=== PATIENT | female | born 1955 | race African-American/Black ===

== ENCOUNTER 2022-01-21 22:37 | Emergency (ER) | payer MEDICAID, SELFPAY ==
[2022-01-21 22:39] VITALS: RESP 18
[2022-01-21 22:48] VITALS: BP 109/77; PULSE 78; RESP 18; TEMP 36.7; O2SAT 99; BMI 29.2
--- NOTE | 2022-01-21 23:06 | ED.GENADULT ---
HPI - General Adult General Chief complaint: Unspecified Complaint, Adult Stated complaint: pain from rheumatoid arthritis Time Seen by Provider: 01/21/22 22:52 History of Present Illness HPI narrative: Pt is a 66 year old woman with long standing rheumatoid arthritis who presents with worsening of the pain in her hands for the past several days. Pain is severe and localized to the MCP of both hands. No fever, chills, abd pain, nausea, vomiting or rash. Pt is compliant with her medications. Pt states that when this happens, she generally takes a higher dose of prednisone for a time which helps. She is currently on 20 mg of prednisone daily. No other complaints. Pain is limiting her ability ot function and sleep. Related Data Home Medications Medication Instructions Recorded Confirmed acetaminophen 500 mg tablet (Pain 1,000 mg PO TID PRN 01/21/22 01/21/22 Relief (acetaminophen)) cholecalciferol (vitamin D3) 50 2,000 unit PO DAILY 01/21/22 01/21/22 mcg (2,000 unit) tablet diclofenac sodium 1 % topical gel 4 g topical QID 01/21/22 01/21/22 docusate sodium 100 mg capsule 100 mg PO DAILY 01/21/22 01/21/22 folic acid 1 mg tablet 1 mg PO DAILY 01/21/22 01/21/22 leflunomide 20 mg tablet 20 mg PO DAILY 01/21/22 01/21/22 levothyroxine 100 mcg tablet 100 mcg PO DAILY 01/21/22 01/21/22 meclizine 25 mg tablet 25 mg PO QID PRN 01/21/22 01/21/22 methotrexate sodium 2.5 mg tablet 2.5 mg PO QWEEK 01/21/22 01/21/22 omeprazole 20 mg capsule,delayed 20 mg PO DAILY 01/21/22 01/21/22 release prednisone 5 mg tablet 5 mg PO DAILY 01/21/22 01/21/22 Allergies Allergy/AdvReac Type Severity Reaction Status Date / Time No Known Drug Allergies Allergy Verified 01/21/22 23:00 Review of Systems Status of ROS: Reports: 10 or more systems reviewed and unremarkable except as noted in History and below [facility] PFS Medical History Hypothyroidism Immunodeficiency due to drugs Rheumatoid arthritis Vitamin D deficiency Surgical History No significant past surgical history Social History Smoking Status: Never smoker Do you use any of these nicotine containing products: None Second hand tobacco smoke exposure: No How often do you have a drink containing alcohol: never How often do you have six or more drinks on one occasion: Never AUDIT-C Alcohol total score: 0 Non-prescribed substance use: denies use Exam Narrative: Exam Narrative: EXAM GENERAL: Patient appears comfortable and well. Obvious ulnar deviation of both hands and wrists with moderate swelling noted. EYES: No scleral icterus. LYMPH: No supraclavicular or cervical lymphadenopathy. SKIN: Visible skin seen during exam normal or with benign process only. EXT: No dependent lower extremity pedal edema. HEART: Regular rate and rhythm with no murmurs, rubs, or gallops. LUNGS: Clear to auscultation bilaterally with no crackles or wheezes. ABD: Soft, non tender, non distended. PSYCH: Good eye contact, speech is not pressured. Const: Vital Signs, click to edit/add: Vital Signs - 24 hr 01/21/22 22:48 01/21/22 22:39 Temperature 98.0 F Pulse Rate [Right Pulse Oximeter] 78 Respiratory Rate 18 Respiratory Rate [ Generalized] 18 Blood Pressure [Ri ght Upper Arm] 109/77 Pulse Oximetry 99 Oxygen Delivery Me thod Room Air Course Course Hospital Course: Pt seen and examined. Vital Signs Vital signs: Initial Vital Signs Respiratory Rate 18 01/21/22 22:39 Vital Signs Respiratory Rate 18 01/21/22 22:39 Temperature 98.0 F 01/21/22 22:48 Pulse Rate 78 01/21/22 22:48 Respiratory Rate 18 01/21/22 22:48 Blood Pressure 109/77 01/21/22 22:48 Pulse Oximetry 99 01/21/22 22:48 Oxygen Delivery Method 01/21/22 22:48 Medical Decision Making MDM Narrative Medical decision making narrative: Pt seen and examined. Case discussed with pt and son. Pt presents with worsening of what appears to be poorly controlled RA. Will treat with 80 mg of Solumedrol now with increase of oral prednisone to 20 mg BID for 5 days with continuation of the remainder of her medications and outpt follow up. Differential Diagnosis Differential Diagnosis: RA flair, SLE, OA, Fracture, Tendonitis, Discharge Plan Discharge Clinical Impression: Rheumatoid arthritis Patient Disposition: Home, Self-Care Condition: Stable Additional Instructions: Increase Prednisone to 20 mg twice daily for 5 days before returning to previous dosing Continue current medications Follow up with primary physician Activity Level: No Restrictions Discharge Diet: Regular Prescriptions: No Action folic acid 1 mg tablet 1 mg PO DAILY Label Comments: TAKE 1 TABLET BY MOUTH ONCE DAILY acetaminophen [Pain Relief (acetaminophen)] 500 mg tablet 1,000 mg PO TID PRN Label Comments: TAKE 2 TABLETS BY MOUTH EVERY 8 HOURS NEEDED FOR MODERATE PAIN OR SCORE OF 4-6 OF 10 cholecalciferol (vitamin D3) 50 mcg (2,000 unit) tablet 2,000 unit PO DAILY Label Comments: TAKE 1 TABLET BY MOUTH ONCE DAILY diclofenac sodium 1 % gel 4 g TOPICAL QID Label Comments: APPLY 4 GRAMS TOPICALLY 4 TIMES DAILY TO LOWER EXTREMITIES AND 2 GRAMS TOPICALLY 4 TIMES DAILY TO UPPER EXTREMITIES docusate sodium 100 mg capsule 100 mg PO DAILY Label Comments: TAKE 1 CAPSULE BY MOUTH ONCE DAILY leflunomide 20 mg tablet 20 mg PO DAILY levothyroxine 100 mcg tablet 100 mcg PO DAILY Label Comments: TAKE 1 TABLET BY MOUTH ONCE DAILY meclizine 25 mg tablet 25 mg PO QID PRN Label Comments: TAKE 1 TABLET BY MOUTH NEEDED FOR DIZZINESS methotrexate sodium 2.5 mg tablet 2.5 mg PO QWEEK omeprazole 20 mg capsule,delayed release(DR/EC) 20 mg PO DAILY prednisone 5 mg tablet 5 mg PO DAILY Label Comments: TAKE 1 TABLET BY MOUTH ONCE DAILY Stand Alone Forms: [employer] Info Instructions
[2022-01-21] MEDS: METHYLPREDNISOLONE SOD SUCC 40 MG/ML 80 MG IM (23:14)
--- OUTSIDE RECORDS SUMMARY | 2022-01-21 23:19 | XMS_ITS | Encounter Summary ---
:1955 Author Organization [facility] Address [address] [place] [address] Care Team Providers Name Role Phone Cynthia Rockwell APRN, C.N.P. Primary Care Provider [phone] Reason for Visit Reason Comments Med Refill Encounter Details Date Type Department Care Team Description 11/08/2021 Refill Department of Family Medicine, Celsa Mcgrath APRN, Med Refill [facility], in [place], [place] [address] [place] [address] Social History Tobacco Use Types Packs/Day Years Used Date Smoking Tobacco: Never Smokeless Tobacco: Never Alcohol Use Standard Drinks/Week Comments No 0 (1 standard drink = 0.6 oz pure alcoho l) Alcohol Habits Answer Date Recorded How often do you have a drink containing alcohol? Never 09/18/2018 How many drinks containing alcohol do you have on a Patient refused 09/18/2018 typical day when you are drinking? How often do you have six or more drinks on one Never 09/18/2018 occasion? Social Isolation Answer Date Recorded In a typical week, how many times do you More than three marcin es a week 09/18/2018 talk on the phone with family, friends, or neighbors? How often do you get together with friends Three times a wee k 09/26/2018 or relatives? How often do you attend gnosticist or 1 to 4 times per year 09/01 congregation services? Do you belong to any clubs or No 09/18/2018 organizations such as gnosticist groups, unions, fraternal or athletic groups, or school groups? How often do you attend meetings of the Never 09/18/2018 clubs or organizations you belong to? Are you now , , , Not asked , never or living with a partner? Physical Activity Answer Date Recorded On average, how many days per week do you engage in moderate to 1 day 09/18/2018 strenuous exercise (like walking fast, running, jogging, dancing, swimming, biking, or other activities that cause a light or heavy sweat)? On average, how many minutes do you engage in exercise at is 10 min 09/18/2018 level? Stress Answer Date Recorded Do you feel stress - tense, restless, nervous, or anxious, o r Very much 09/26/2018 unable to sleep at night because your mind is troubled all the time - these days? Financial Resource Strain Answer Date Recorded How hard is it for you to pay for the very basics like Not h iker at all 09/18/2018 food, housing, medical care, and heating? Intimate Partner Violence Answer Date Recorded Within the last year, have you been afraid of your partner o r No 09/18/2018 ex-partner? Within the last year, have you been humiliated or emotionall y No 09/18/2018 abused in other ways by your partner or ex-partner? Within the last year, have you been kicked, hit, slapped, or No 09/18/2018 otherwise physically hurt by your partner or ex-partner? Within the last year, have you been raped or forced to have Not asked any kind of sexual activity by your partner or ex-partner? Food Insecurity Answer Date Recorded Within the past 12 months, you worried that your food would Never true 09/18/2018 run out before you got money to buy more. Within the past 12 months, the food you bought just didn't N ever true 09/18/2018 last and you didn't have money to get more. Transportation Needs Answer Date Recorded In the past 12 months, has lack of transportation kept you f rom No 09/18/2018 medical appointments or from getting medications? In the past 12 months, has lack of transportation kept you f rom No 09/18/2018 meetings, work, or getting things needed for daily living? Education Answer Date Recorded What is the highest level of school you have completed or th e 1st grade 09/18/2018 highest degree you have received? Sex Assigned at Date Recorded Not on file documented as of this encounter Miscellaneous Notes Telephone Encounter - Neptali Sebastian P.A.-C. - 11/09/2021 4:13 PM CDT I give one refill but this patient is overdue to be seen by their primary documented in this encounter Plan of Treatment Upcoming Encounters Date Type Specialty Care Team Description 02/01/2022 Comprehensive Visit Family Medicine Cynthia Rockwell A PRN, C.N.P. [address] [place] [phone] (Wo rk) documented as of this encounter Visit Diagnoses Diagnosis Arthritis Rheumatoid (HCC) Korean Language Deficit - Primary General Medical Examination Adult Hypothyroidism Acquired Arthritis Rheumatoid (HCC) High Risk Medication History Of Falling Encounter For COVID-19 Vaccine Immunizat ion Need Vaccine Immunization Influenza Encounter For Other Screening For Malign ant Neoplasm Of Breast documented in this encounter Care Teams Doughnut Machine Operator Relationship Specialty Start Date End Date Cynthia Rockwell APRN, C.N.P. PCP - General 08/16/16 [address] [place] [phone] documented as of this encounter
--- OUTSIDE RECORDS SUMMARY | 2022-01-21 23:19 | XMS_ITS | Encounter Summary ---
:1955 Author Organization [facility] Address [address] [place] [address] Care Team Providers Name Role Phone Cynthia Rockwell APRN, C.N.P. Primary Care Provider [phone] Reason for Visit Reason Comments Med Refill Encounter Details Date Type Department Care Team Description 05/17/2021 Refill Department of Family Medicine, hCristi Rockwell APRN, Med Refill [facility], in [place], [place] [address] [place] [address] [place] [address] [phone] Social History Tobacco Use Types Packs/Day Years [...] or relatives? How often do you attend yarsanism or 1 to 4 times per year 09/01 sabianism services? Do you belong to any clubs or No 09/18/2018 organizations such as yarsanism groups, unions, fraternal or athletic groups, or [...] minutes do you engage in exercise at th is 10 min 09/18/2018 level? Stress Answer [...] this encounter Miscellaneous Notes Telephone Encounter - Reny Andrews - 05/17/2021 9:34 AM CDT Nurse review: Unable to forward request to provider; Discrepancy; Verification Required. patient request 3 month supply Primary Provider: Cynthia Rockwell APRN, C.N.P. Requested Prescriptions Pending Prescriptions Disp Refills ??? meclizine (ANTIVERT) 25 mg tablet 30 tablet 1 Sig: Take 1 tablet (25 mg total) by mouth as needed for dizziness. Telephone Encounter - Yennifer Astudillo - 05/17/2021 9:29 AM CDT Provider: Cynthia Rockwell APRN, C.N.P. Patient called for Refills. Additional info only if applies: Patient needs a 3 month supply because [place], she will need it by tomorrow Requested Prescriptions Pending Prescriptions Disp Refills ??? meclizine (ANTIVERT) 25 mg tablet 30 tablet 1 Pharmacy: [facility] [address] [place] [address] documented in this encounter Plan of Treatment Upcoming Encounters Date Type Specialty Care Team Description 02/01/2022 Comprehensive Visit Family Medicine Cynthia Rockwell A PRN, C.N.P. [address] [place], [place] [phone] (Wo rk) documented as of this encounter Visit Diagnoses Diagnosis Dizziness Chinese Language Deficit - Primary General Medical Examination Adult Hypothyroidism Acquired Arthritis Rheumatoid (HCC) High Risk Medication History Of Falling Encounter For COVID-19 Vaccine Immunizat ion Need Vaccine Immunization Influenza Encounter For Other Screening For Malign ant Neoplasm Of Breast documented in this encounter Care Teams Dye Box Operator Relationship Specialty Start Date End Date Cynthia Rockwell, SOHAN, C.N.P. PCP - General 08/16/[address] [phone] documented as of this encounter
--- OUTSIDE RECORDS SUMMARY | 2022-01-21 23:19 | XMS_ITS | Encounter Summary ---
:1955 Author Organization [facility] Address [address] [place] [address] Care Team Providers Name Role Phone Cynthia Rockwell APRN, C.N.P. Primary Care Provider [phone] Reason for Visit Reason Comments Med Refill Encounter Details Date Type Department Care Team Description 07/09/2021 Refill Division of Rheumatology in [place] Arana APRN, Med Refill [place], [place] C[place]. [address] [facility] [address] [place] [address] [place] [address] [phone] (Wo rk) Social History Tobacco Use Types Packs/Day Years [...] or relatives? How often do you attend pentecostalism or 1 to 4 times per year 09/01 mandaen services? Do you belong to any clubs or No 09/18/2018 organizations such as pentecostalism groups, unions, fraternal or athletic groups, or [...] this encounter Miscellaneous Notes Telephone Encounter - Jurgen Rodríguez M.S.N., [place], AustenS.R.N. - 07/12/2021 8:11 AM CDT Prescription renewal request for omeprazole received from pharmacy. HISTORY OF PRESENT ILLNESS Last Rheum visit: 03/22/21 with Perry Arana APRN, CA[place] Future office visit: ordered, not yet scheduled Last monitoring labs/eye exam: Not required. Prescription request matches current plan of care. Prescription request matches a current prescription in the Medication List. Exclusion criteria: None ASSESSMENT/PLAN Prescription request renewed per nursing protocol. documented in this encounter Plan of Treatment Upcoming Encounters Date Type Specialty Care Team Description 02/01/2022 Comprehensive Visit Family Medicine Cynthia Rockwell, Kuldip EUBANKS, C.N.P. [address], [place] [phone] (Wo rk) documented as of this encounter Visit Diagnoses Not on filedocumented in this encounter Care Teams Grapple Yarder Operator Relationship Specialty Start Date End Date Cynthia Rockwell APRN, C.N.P. PCP - General 08/16/16 [address], [place] [phone] documented as of this encounter
--- OUTSIDE RECORDS SUMMARY | 2022-01-21 23:19 | XMS_ITS | Encounter Summary ---
:1955 Author Organization [facility] Address [address] [place] [address] Care Team Providers Name Role Phone Cynthia Rockwell APRN, C.N.P. Primary Care Provider [phone] Encounter Details Date Type Department Care Team Description 05/17/2021 Clinical Communication Department of [facility] Celsa Mcgrath, Medicine, [place] SOHAN, C.N.P. [facility], in [address] [address] Social History Tobacco Use Types Packs/Day Years [...] or relatives? How often do you attend jewish or 1 to 4 times per year 09/01 jain services? Do you belong to any clubs or No 09/18/2018 organizations such as jewish groups, unions, fraternal or athletic groups, or [...] this encounter Miscellaneous Notes Telephone Encounter - Sravani Godoy L.P.N. - 05/17/2021 9:58 AM CDT SUBJECTIVE CHIEF COMPLAINT / REASON FOR CALL No chief complaint on file. Information Discussed Followed up with pharmacy and patient picked up a month supply of both medications. Insurance will only cover one month at a time. They would have to call insurance to get a 3 month supply approved. Pharmacy has told them this. There is nothing we can do for them they need to call and follow-up with their insurance. Telephone Encounter - Yennifer Astudillo - 05/17/2021 9:36 AM CDT Reason for Communication: Patient went to the pharmacy today and only received 5 of the 7 prescriptions that were sent over on 05/15, the pharmacy did not receive the methotrexate or the leflunomide. Current Can Nursing/Provider leave a detailed message?: yes Did the patient refuse triage through Nurse line? (for symptom based concerns): na Action Needed: please resend the two prescriptions Name of Medication (if relevant): methotrexate and leflunomide. Please send all scheduling replies to scheduling pool. documented in this encounter Plan of Treatment Upcoming Encounters Date Type Specialty Care Team Description 02/01/2022 Comprehensive Visit Family Medicine Cynthia Rockwell A PRN, C.N.P. [address], [place] [phone] (Wo rk) documented as of this encounter Visit Diagnoses Not on filedocumented in this encounter Care Teams Senior Internet Sales Consultant Relationship Specialty Start Date End Date Cynthia Rockwell APRN, C.N.P. PCP - General 08/16/16 [address], [place] [address] documented as of this encounter
--- OUTSIDE RECORDS SUMMARY | 2022-01-21 23:19 | XMS_ITS | Encounter Summary ---
:1955 Author Organization [facility] Address [address] [place] [address] Care Team Providers Name Role Phone Cynthia Rockwell APRN, C.N.P. Primary Care Provider [phone] Reason for Visit Reason Comments Results Encounter Details Date Type Department Care Team Description 05/16/2021 Clinical Communication Department of [facility] Christi Rockwell, Results Medicine, [place] SOHAN, C.N.P. [facility], in [facility] [address] [place] [address] [place], [place] [phone] (Work) [phone] Social History Tobacco Use Types Packs/Day Years [...] or relatives? How often do you attend rastafari or 1 to 4 times per year 09/01 yarsani services? Do you belong to any clubs or No 09/18/2018 organizations such as rastafari groups, unions, fraternal or athletic groups, or [...] this encounter Miscellaneous Notes Telephone Encounter - Alicia Tilley CCMA - 05/16/2021 9:42 AM CDT Information provided as per Cynthia. The information is understood and agreed to. Telephone Encounter - Isa Jacob L.P.N. - 05/16/2021 9:20 AM CDT Left message for patient to return call to clinic. Does the patient need to speak to nursing? yes Action needed: Relay TSH lab results and recommendations per Celsa Mcgrath. Telephone Encounter - Isa Jacob L.P.N. - 05/16/2021 9:19 AM CDT ----- Message from Celsa Mcgrath APRN, C.N.PShelton sent at 05/15/2021 11:08 PM CDT ----- Please let the patient know her TSH is high. Levothyroxine will be increased to 100 mcg daily. Please follow up with a TSH when she returns to the [place] Thank you! documented in this encounter Plan of Treatment Upcoming Encounters Date Type Specialty Care Team Description 02/01/2022 Comprehensive Visit Family Medicine Cynthia Rockwell A PRN, C.N.P. [address] [place] [phone] (Wo rk) documented as of this encounter Visit Diagnoses Not on filedocumented in this encounter Care Teams Weight Control Lecturer Relationship Specialty Start Date End Date Cynthia Rockwell APRN, C.N.P. PCP - General 08/16/16 [address] [facility] [place] [address] documented as of this encounter
--- OUTSIDE RECORDS SUMMARY | 2022-01-21 23:19 | XMS_ITS | Encounter Summary ---
:1955 Author Organization [facility] Address [address] [place] [address] Care Team Providers Name Role Phone Cynthia Rockwell APRN, C.N.P. Primary Care Provider [phone] Reason for Referral Specialty Diagnoses / Procedures Referred By Contact Refer red To Contact Cynthia Rockwell APR N, C.N.P. [facility] Region [address] [place] [address] Referral ID Status Reason Start Date Expiration Date Visits Requ ested Visits Authorized Encounter Details Date Type Department Care Team Description 01/03/2022 Orders Only [facility] Rockwell, Kuldip EUBANKS, C.N.P. [address] [place], [place] [phone] (Wo rk) Social History Tobacco Use Types [...] or relatives? How often do you attend rastafarian or 1 to 4 times per year 09/01 christian services? Do you belong to any clubs or No 09/18/2018 organizations such as rastafarian groups, unions, fraternal or athletic groups, or [...] on file documented as of this encounter Plan of Treatment Upcoming Encounters Date Type Specialty Care Team Description 02/01/2022 Comprehensive Visit Family Medicine Cynthia Rockwell A PRN, C.N.P. [address] [place] [phone] (Wo rk) Scheduled Referrals Name Type Priority Associated Order Schedule Diagnoses Covid immunization Outpatient Referral Routine Ex pected: office visit 01/03/2022 Immuno/Booster (Approximate) , Expires: 01/03/2023 documented as of this encounter Visit Diagnoses Not on filedocumented in this encounter Care Teams Recoil Spring Winder Relationship Specialty Start Date End Date Cynthia Rockwell TELEMARKETER SUPERVISOR, C.N.P. PCP - General 08/16/[address] [phone] documented as of this encounter
--- OUTSIDE RECORDS SUMMARY | 2022-01-21 23:19 | XMS_ITS | Encounter Summary ---
:1955 Author Organization [facility] Address [address] [place] [address] Care Team Providers Name Role Phone Cynthia Rockwell APRN, C.N.P. Primary Care Provider [phone] Encounter Details Date Type Department Care Team Description 05/15/2021 Orders Only Department of Family Celsa Mcgrath, Hypoth yroidism [facility] Medicine, [place] SOHAN, C.N.P. [facility], in [place], [place] [address] [place] [address] Social History Tobacco Use Types Packs/Day [...] or relatives? How often do you attend orthodoxy or 1 to 4 times per year 09/01 episcopal services? Do you belong to any clubs or No 09/18/2018 organizations such as orthodoxy groups, unions, fraternal or athletic groups, or [...] Cynthia Rockwell A PRN, C.N.P. [address] [place], [place] [phone] (Wo rk) Scheduled Orders Name Type Priority Associated Diagnoses Order S chedule S-TSH Lab Routine Hypothyroidism Acquired Expe cted: 08/15/2021 (Thyroid-Stimulating (Approx imate), Expires: Hormone - Sensitive) 023 documented as of this encounter Visit Diagnoses Diagnosis Hypothyroidism Acquired Yoruba Language Deficit - Primary General Medical Examination Adult Hypothyroidism Acquired Arthritis Rheumatoid (HCC) High Risk Medication History Of Falling Encounter For COVID-19 Vaccine Immunizat ion Need Vaccine Immunization Influenza Encounter For Other Screening For Malign ant Neoplasm Of Breast documented in this encounter Care Teams Computer Assistant Relationship Specialty Start Date End Date Cynthia Rockwell APRN, C.N.P. PCP - General 08/16/[address] [place] [address] documented as of this encounter
--- OUTSIDE RECORDS SUMMARY | 2022-01-21 23:19 | XMS_ITS | Clinical Summary ---
:1955 Author Organization [employer] [facility] [facility] [place] [address] Care Team Providers Name Role Phone Cynthia Rockwell CORK MOLDER Primary Care Provider Allergies Active Allergy Reactions Severity Noted Date Comments Unlisted Allergen (Include Detail Runny Nose 017 Seasonal allergies In Comments) Medications Medication Sig Dispensed Refills Start Date End Date Status methotrexate Take 2.5 mg by 0 Ac tive (RHEUMATREX) 2.5 mg mouth once weekly. tablet Take 6 tablets once a week. leflunomide (ARAVA) 20 Take 20 mg by 0 Active mg tablet mouth once daily. acetaminophen (TYLENOL Take 500 mg by 0 Active EXTRA STRENGTH) 500 mg mouth every 6 tabletIndications: pain hours if needed. Max acetaminophen dose: 4000mg in 24 hrs. Indications: PAIN folic acid 1 mg tablet Take 1 mg by mouth 0 Active once daily. hydroxychloroquine Take 400 mg by 0 Active (PLAQUENIL) 200 mg mouth once daily. tablet docusate (STOOL Take 1 capsule by 30 capsule 0 06/27/2014 Active SOFTENER) 100 mg mouth 2 times capsuleIndications: daily. Compression fracture MAPAP 325 mg tablet 0 08/23/2015 Active levothyroxine Take 75 mcg by 0 A ctive (SYNTHROID) 75 mcg mouth once daily. tablet DULoxetine (CYMBALTA) Take 60 mg by 0 Active 60 mg Delayed-release mouth once daily. capsule predniSONE (DELTASONE) Take 1 tablet by 10 tablet 0 05/12/2017 Active 5 mg tabletIndications: mouth once daily Low back pain, with a meal. unspecified back pain laterality, unspecified chronicity, with sciatica presence unspecified, Hx of rheumatoid arthritis ondansetron (ZOFRAN Place 1 tablet on 10 tablet 0 11/05/2017 Active ODT) 4 mg the tongue every 8 disintegrating hours if needed tabletIndications: for Vomiting, Nausea/Vomiting. intractability of vomiting not specified, presence of nausea not specified, unspecified vomiting type rx ondansetron (ZOFRAN Take 1 tablet by 4 tablet 0 11/05/2017 Active ODT) 4 mg orally mouth every 8 disintegrating tablet hours if needed. (ED DC MED)Indications: Vomiting, intractability of vomiting not specified, presence of nausea not specified, unspecified vomiting type rx albuterol HFA Inhale 2 Puffs by 1 canister 0 07/27/2018 Active (PROVENTIL; VENTOLIN) mouth 4 times (90 mcg each actuation) daily. inhaler (ED DC MED)Indications: Viral URI with cough meclizine (ANTIVERT) 25 Take 1 tablet by 30 tablet 0 9 Active mg tabletIndications: mouth 3 times Dizziness, Nausea daily if needed for Vertigo, Motion Sickness or Nausea/Vomiting. codeine-guaiFENesin Take 10 mL by 40 mL 0 09/22/2020 Active (ROBITUSSIN AC) 10-100 mouth every 6 mg/5 mL hours if needed liquidIndications: for Cough. Max Cough dose 60 mL per 24 hrs. NebulizerIndications: Nebulizer, 1 Each 0 11/28/2020 Active Wheezing disposable neb kit x 4, reuseable neb kit x 1, mask x 1, filters x 1. Frequency of use: daily; Medication: albuterol Length of need: 99 months albuterol (PROVENTIL) Inhale 3 mL (2.5 90 mL 0 11/28/2020 Active 0.083 % neb mg) via a solutionIndications: nebulizer every 4 Wheezing hours if needed. ondansetron (ZOFRAN Place 1 Tablet (4 10 Tablet 0 12/13/2021 Active ODT) 4 mg mg) on the tongue disintegrating every 8 hours if tabletIndications: needed for Nausea and vomiting, Nausea/Vomiting. unspecified vomiting type Active Problems No known active problems Encounters Date Type Specialty Care Team Description 12/13/2021 Emergency Alexis Guzman MD Na usea and vomiting, unspecified vomiting type (Primary Dx); Left lateral ab dominal pain 12/13/2021 Travel from Last 3 Months Social History Tobacco Use Types Packs/Day Years Used Date Never Smoker Smokeless Tobacco: Never Used Tobacco Cessation: Counseling Given: Yes Alcohol Use Standard Drinks/Week Comments No 0 (1 standard drink = 0.6 oz pure alcoho l) Sex Assigned at Date Recorded Not on file Obstetrics History Last Filed Vital Signs Vital Sign Reading Time Taken Comments Blood Pressure 143/73 12/13/2021 9:45 AM CDT Pulse 73 12/13/2021 9:45 AM CDT Temperature 36.7 ??C (98 ??F) 12/13/2021 7:43 AM CDT Respiratory Rate 18 12/13/2021 7:43 AM CDT Oxygen Saturation 95% 12/13/2021 9:45 AM CDT Inhaled Oxygen Concentration - - Weight 76.7 kg (169 lb) 12/13/2021 7:43 AM CDT Height 152.4 cm (5') 12/13/2021 7:43 AM CDT Body Mass Index 33.01 12/13/2021 7:43 AM CDT Plan of Treatment Health Maintenance Due Date Last Done Comments Tdap 1968 Depression screening for age 12+ 1969 HIV for age 15-65 1972 BMI (ht and wt on same day) for age 18+ 1975 Hepatitis C screening for age 18-79 1975 Tetanus booster 1977 Pap test for age 21-65 1978 Colonoscopy through age 75 2002 Lipids for age 45-75 2002 Mammogram for age 45-75 2002 Zoster (shingles) series for age 50+ (1 of 2007 2) COVID-19 vaccine series (3 - Booster for 07/07/2021 022, 08/27/2020 Pfizer series) Influenza for age 50-64 11/02/2021 Procedures Procedure Name Priority Date/Time Associated Diagnosis Comme nts XR CHEST 1 VIEW STAT 12/13/2021 8:56 AM Result s for this PORTABLE CDT procedure are i n the results section. CT ABDOMEN PELVIS W STAT 12/13/2021 8:49 AM Re sults for this CDT procedure are i n the results section. HEPATIC FUNCTION STAT 12/13/2021 8:26 AM Resul ts for this PANEL CDT procedure are i n the results section. LIPASE STAT 12/13/2021 8:26 AM Results f or this CDT procedure are i n the results section. BASIC METABOLIC STAT 12/13/2021 8:26 AM Result s for this PANEL CDT procedure are i n the results section. CBC W PLT NO DIFF STAT 12/13/2021 8:26 AM Resu lts for this CDT procedure are i n the results section. from Last 3 Months Results XR CHEST 1 VIEW PORTABLE (12/13/2021 8:56 AM CDT) Anatomical Region Laterality Modality HEART, THORAX, CHEST Digital Radiography Specimen (Source) Anatomical Collection Method Collection Time Re ceived Time Location / / Volume Laterality 12/13/2021 9:01 AM CDT Impressions 12/13/2021 9:01 AM CDT No acute cardiopulmonary abnormality or significant change from the previous Dictated by Brandon Burt MD @ 12/13/2021 9:01 :05 AM (Electronically Signed) Narrative 12/13/2021 9:01 AM CDT For Patients: ??As a result of the Cures Act, medical imaging exams and procedure report s are released immediately into your [facility] medical record. ??You may view this report before your referring provider. ??If you have questions, please contact your health care provider. INDICATION: Vomiting. TECHNIQUE: Chest 1 view. COMPARISON: 11/28/2020 FINDINGS: Cardiovascular and mediastinum: Heart si ze and vasculature are normal in caliber and appearance. Mediastinum is within normal limits. Lungs and pleural spaces: Lungs are percy r. No sign of infiltrate or mass. No sign of pleural effusion. No pneumothorax. Bones and soft tissues: Chronic bilatera l shoulder arthropathy. No significant findings. Procedure Note Shayne Burt MD - 12/13/2021F ormatting of this note might be different from the original. For Patients: As a result of the Cures Act, medical imaging exams and procedure reports are released immediately into your electronic medical record. You may view this report before your referring provider. If you have questions, please contact [facility] health care provider. INDICATION: Vomiting. TECHNIQUE: Chest 1 view. COMPARISON: 11/28/2020 FINDINGS: Cardiovascular and mediastinum: Heart si ze and vasculature are normal in caliber and appearance. Mediastinum is within normal limits. Lungs and pleural spaces: Lungs are percy r. No sign of infiltrate or mass. No sign of pleural effusion. No pneumothorax. Bones and soft tissues: Chronic bilatera l shoulder arthropathy. No significant findings. IMPRESSION: No acute cardiopulmonary abnormality or significant change from the previous Dictated by Brandon Burt MD @ 12/13/2021 9:01 :05 AM (Electronically Signed) Alexis Guzman MD GENERAL IMAGING CT ABDOMEN PELVIS W (12/13/2021 8:49 AM CDT) Anatomical Region Laterality Modality Abdomen, Pelvis, AORTA, LIVER, SPLEEN Co mputed Tomography Specimen (Source) Anatomical Collection Method Collection Time Re ceived Time Location / / Volume Laterality 12/13/2021 9:14 AM CDT Impressions 12/13/2021 9:14 AM CDT 1. Unremarkable CT of the abdomen and pelvis. No interval change from the previous study or findings which would explain the patient`s left lower quadrant symptoms. 2. Minor bladder wall thickening similar to the previous. 3. Stable old L1 compression fracture. 4. Spleen granulomas. Please note that all CT scans at this [facility] use dose modulation, iterative reconstruction, and/or weight-based dosing when appropriate to reduce radiation dose to as low as reasonably achievable. Dictated by Brandon Burt MD @ 12/13/2021 9:14 :38 AM (Electronically Signed) Narrative 12/13/2021 9:14 AM CDT For Patients: ??As a result of the Cures Act, medical imaging exams and procedure report s are released immediately into your [facility] medical record. ??You may view this report before your referring provider. ??If you have questions, please contact your health care provider. INDICATION: Left lower quadrant abdominal pain. TECHNIQUE: CT abdomen and pelvis acquired with IV c ontrast. COMPARISON: CT abdomen pelvis 10/25/2015 FINDINGS: Lower chest: Lung bases are clear and he art size normal. Fat present in a left posterior diaphragmatic hernia. Liver: Normal size no lesions. Spleen: Normal size. Calcified granuloma . Pancreas: No pancreatic mass or pancreat itis. Gallbladder and bile ducts: Unremarkable . Kidneys: Normal. No stones or hydronephr osis. Adrenal glands: Normal. GI tract: Colon and small bowel are norm al. No bowel wall thickening, adjacent inflammation or obstructive pattern. The appendix is not specifically identified. Vascular structures: No aneurysm or abno rmality of the portal venous system. Lymph nodes: No retroperitoneal, mesente nivia or pelvic lymphadenopathy. Miscellaneous: Unremarkable. No free air or significant free fluid. Fat present is small right inguinal hernia. No left inguinal or abdominal hernia. Pelvic Organs: Mild bladder wall thicken ing similar to the previous without evidence for mass or other bladder abnormality. Uterus and low pelvis normal. Neither ovary is identified. No pelvic mass. Bones: Stable old compression fracture o f L1. No acute abnormality. Procedure Note Shayne Burt MD - 12/13/2021F ormatting of this note might be different from the original. For Patients: As a result of the nt[place] Cures Act, medical imaging exams and procedure reports are released immediately into your electronic medical record. You may view this report before your referring provider. If you have questions, please contact [facility] care provider. INDICATION: Left lower quadrant abdominal pain. TECHNIQUE: CT abdomen and pelvis acquired with IV c ontrast. COMPARISON: CT abdomen pelvis 10/25/2015 FINDINGS: Lower chest: Lung bases are clear and he art size normal. Fat present in a left posterior diaphragmatic hernia. Liver: Normal size no lesions. Spleen: Normal size. Calcified granuloma . Pancreas: No pancreatic mass or pancreat itis. Gallbladder and bile ducts: Unremarkable . Kidneys: Normal. No stones or hydronephr osis. Adrenal glands: Normal. GI tract: Colon and small bowel are norm al. No bowel wall thickening, adjacent inflammation or obstructive pattern. The appendix is not specifically identified. Vascular structures: No aneurysm or abno rmality of the portal venous system. Lymph nodes: No retroperitoneal, mesente nivia or pelvic lymphadenopathy. Miscellaneous: Unremarkable. No free air or significant free fluid. Fat present is small right inguinal hernia. No left inguinal or abdominal hernia. Pelvic Organs: Mild bladder wall thicken ing similar to the previous without evidence for mass or other bladder abnormality. Uterus and low pelvis normal. Neither ovary is identified. No pelvic mass. Bones: Stable old compression fracture o f L1. No acute abnormality. IMPRESSION: 1. Unremarkable CT of the abdomen and pe lvis. No interval change from the previous study or findings which would explain the patient`s left lower quadrant symptoms. 2. Minor bladder wall thickening similar to the previous. 3. Stable old L1 compression fracture. 4. Spleen granulomas. Please note that all CT scans at this [facility] use dose modulation, iterative reconstruction, and/or weight-based dosing when appropriate to reduce radiation dose to as low as reasonably achievable. Dictated by Brandon Burt MD @ 12/13/2021 9:14 :38 AM (Electronically Signed) Alexis Guzman MD CT (ABNORMAL) CBC W PLT NO DIFF (12/13/2021 8:26 AM CDT) [facility] gist Method Time Signature WHITE BLOOD 2.9 (L) 4.5 - 11.0 12/13/2021 [place] COUNT thou/cu mm 8:34 AM [facility] RED BLOOD COUNT 4.09 4.00 - 12/13/2021 [place] 5.20 8:34 AM [facility] [place] mil/cu mm LABORATORY HEMOGLOBIN 11.5 (L) 12.0 - 12/13/2021 [place] 16.0 g/dL 8:34 AM [facility] HEMATOCRIT 36.2 33.0 - 12/13/2021 [place] 51.0 % 8:34 AM [facility] MCV 89 80 - 100 12/13/2021 [place] fL 8:34 AM [facility] MCH 28.1 26.0 - 12/13/2021 [place] 34.0 pg 8:34 AM [facility] MCHC 31.8 (L) 32.0 - 12/13/2021 [place] 36.0 g/dL 8:34 AM [facility] RDW 15.2 11.5 - 12/13/2021 [place] 15.5 % 8:34 AM [facility] PLATELET COUNT 214 140 - 440 12/13/2021 [place] thou/cu mm 8:34 AM [facility] MPV 10.5 6.5 - 11.0 12/13/2021 [place] fL 8:34 AM [facility] [place]ORATORY Specimen Anatomical Collection Method / Collection Time Recei channing Time (Source) Location / Volume Laterality Blood BLOOD SPECIMEN / Venipuncture / 12/13/2021 8:26 2021 8:29 Unknown Unknown AM CDT AM CDT Alexis Guzman MD HEMATOLOGY Performing Organization Address [facility] Phon e Number [facility] [address] [place] [address] LIPASE (12/13/2021 8:26 AM CDT) P athologist Signature LIPASE 27.0 8.0 - 78.0 12/13/2021 [place] IU/L 8:56 AM [facility] Specimen Anatomical Collection Method / Collection Time Recei channing Time (Source) Location / Volume Laterality Blood BLOOD SPECIMEN / Venipuncture / 12/13/2021 8:26 2021 8:29 Unknown Unknown AM CDT AM CDT Alexis Guzman MD CHEMISTRY Performing Organization Address [facility] Phon e Number [facility] [address] [place] [address] (ABNORMAL) HEPATIC FUNCTION PANEL (12/13/2021 8:26 AM CDT) Patholo gist Method Time Signature ALBUMIN 3.0 (L) 3.2 - 4.6 12/13/2021 [place] g/dL 8:55 AM [facility] [place] PROTEIN,TOTAL 6.2 6.0 - 8.0 12/13/2021 [place] g/dL 8:55 AM [facility] [place]ATORY GLOBULIN 3.2 2.0 - 3.7 12/13/2021 [place] g/dL 8:55 AM [facility] [place] A/G RATIO 0.9 (L) 1.0 - 2.0 12/13/2021 [place] 8:55 AM [facility] [place] LABORATORY BILIRUBIN,TOTAL 0.3 0.2 - 1.2 12/13/2021 [place] mg/dL 8:55 AM [facility] [place] BILIRUBIN,DIRECT 0.1 0.1 - 0.5 12/13/2021 [place] mg/dL 8:55 AM [facility] BILIRUBIN,INDIRE 0.2 0.2 - 0.8 12/13/[address] [place] [address] mg/dL 8:55 AM [facility] ALK PHOSPHATASE 67 50 - 136 12/13/2021 [place] IU/L 8:55 AM [facility] ALT (SGPT) 11 8 - 45 12/13/2021 [place] IU/L 8:55 AM [facility] AST (SGOT) 14 2 - 40 12/13/2021 [place] IU/L 8:55 AM [facility] Specimen Anatomical Collection Method / Collection Time Recei channing Time (Source) Location / Volume Laterality Blood BLOOD SPECIMEN / Venipuncture / 12/13/2021 8:26 2021 8:29 Unknown Unknown AM CDT AM CDT Alexis Guzman MD CHEMISTRY Performing Organization Address City/[facility]/ZIP Code Phon e Number [facility] [address] [place] [address] (ABNORMAL) BASIC METABOLIC PANEL (12/13/2021 8:26 AM CDT) Analysis Performed At Patho logist Time Signature SODIUM 141 135 - 145 12/13/2021 [place] mmol/L 8:53 AM [facility] POTASSIUM 3.5 3.5 - 5.0 12/13/2021 [place] mmol/L 8:53 AM [facility] CHLORIDE 109 98 - 110 12/13/2021 [place] mmol/L 8:53 AM [facility] CO2,TOTAL 25 21 - 31 12/13/2021 [place] mmol/L 8:53 AM [facility] ANION GAP 7 5 - 18 [facility] GLUCOSE 153 (H) 65 - 100 12/13/2021 [place] mg/dL 8:53 AM [facility] CALCIUM 8.4 (L) 8.5 - 10.5 12/13/2021 [place] mg/dL 8:53 AM [facility] BUN 10 8 - 25 12/13/2021 [place] mg/dL 8:53 AM [facility] CREATININE 0.68 0.57 - 12/13/2021 [place] 1.11 mg/dL 8:53 AM [facility] BUN/CREAT RATIO 15 10 - 20 12/13/2021 [place] 8:53 AM [facility] eGFR >90 >90 12/13/2021 [place] mL/min/1.7 8:53 AM [facility] 3m2 [facility] Comment: As of 2021, eGFR is calcu lated by the CKD-EPI creatinine equation without race adjustment. eGFR can be inf luenced by muscle mass, exercise, and diet. The reported eGFR is an estimation only and is only applicable if the renal function is stable. Specimen Anatomical Collection Method / Collection Time Recei channing Time (Source) Location / Volume Laterality Blood BLOOD SPECIMEN / Venipuncture / 12/13/2021 8:26 2021 8:29 Unknown Unknown AM [facility] Alexis Guzman MD CHEMISTRY Performing Organization Address City/State/ZIP Code Phon e Number [facility] [address] [place] [address] from Last 3 Months Insurance Payer Benefit Plan / Subscriber ID Effective Dates Phone Addre ss Type Group [facility] [place] [id number] 2013-Present [address] [place] [address] [facility] [id number] 2021-Present [address] [place] [address] MEDICAID [place] MEDICAID [id number] 2008-Present [address] [address] Dept [place] [address] Althea Arias Personal/Family Self 1955 A [address] (Home) [address] [place] [address] Care Teams Timing Inspector Relationship Specialty Start Date End Date Cynthia Rockwell, BRADEN PCP - General Nurse Practitioner 09/29/[address] [place] [address] CAREY Felder [id number]
--- OUTSIDE RECORDS SUMMARY | 2022-01-21 23:19 | XMS_ITS | Encounter Summary ---
:1955 Author Organization [facility] Address [address] [place] [address] Care Team Providers Name Role Phone Cynthia Rockwell APRN, C.N.P. Primary Care Provider [phone] Reason for Visit Reason Comments Med Refill Encounter Details Date Type Department Care Team Description 01/15/2022 Refill Department of Family Medicine, Christi Rockwell APRN, Med Refill [facility], in [place], [place] [address] [place] [address] [place] [address] [phone] Social History Tobacco Use Types Packs/Day Years [...] or relatives? How often do you attend latter-day or 1 to 4 times per year 09/01 sikh services? Do you belong to any clubs or No 09/18/2018 organizations such as latter-day groups, unions, fraternal or athletic groups, or [...] Medicine Cynthia Rockwell A PRN, C.N.P. [address] [place], [place] [address] (Wo rk) documented as of this encounter Visit Diagnoses Diagnosis Arthritis Rheumatoid (HCC) Urdu Language Deficit - Primary General Medical Examination Adult Hypothyroidism Acquired Arthritis Rheumatoid (HCC) High Risk Medication History Of Falling Encounter For COVID-19 Vaccine Immunizat ion Need Vaccine Immunization Influenza Encounter For Other Screening For Malign ant Neoplasm Of Breast documented in this encounter Care Teams Air Tester Relationship Specialty Start Date End Date Cynthia Rockwell APRN, C.N.P. PCP - General 08/16/[address], [place] [address] documented as of this encounter
--- OUTSIDE RECORDS SUMMARY | 2022-01-21 23:19 | XMS_ITS | Encounter Summary ---
:1955 Author Organization [facility] Address [address] [place] [address] Care Team Providers Name Role Phone Cynthia Rockwell APRN, C.N.P. Primary Care Provider [phone] Encounter Details Date Type Department Care Team Description 05/15/2021 Hospital Encounter Department of Celsa Mcgrath Hypothy roidism Acquired Laboratory Medicine [place], [place] [address] [place] [address] Social History Tobacco Use Types [...] or relatives? How often do you attend moravian or 1 to 4 times per year 09/01 mandaeism services? Do you belong to any clubs or No 09/18/2018 organizations such as moravian groups, unions, fraternal or athletic groups, or [...] on file documented as of this encounter Medications at Time of Discharge Medication Sig Dispensed Refills Start Date End Date acetaminophen (TYLENOL) TAKE 2 TABLETS BY 270 tablet 3 03/08 500 mg tabletIndications: MOUTH EVERY 8 HOURS Fibromyalgia NEEDED FOR MODERATE PAIN OR SCORE OF 4-6 OF 10 albuterol 2.5 mg /3 mL INHALE 3ML VIA A 0 021 nebulizer solution NEBULIZER EVERY 4 HOURS NEEDED ammonium lactate APPLY CREAM 280 g 3 03/08/2021 (AMLACTIN) 12 % cream TOPICALLY TO AFFECTED AREA ONCE DAILY celecoxib (CeleBREX) 200 Take 200 mg by 0 022 mg capsule mouth 2 (two) times a day. cholecalciferol (VITAMIN Take 1 tablet 90 tablet 3 05/16/19 D3) 50 mcg (2,000 Unit) (2,000 Units total) tabletIndications: by mouth daily. Arthritis Rheumatoid ([facility]) codeine-guaiFENesin Take 10 mL by mouth 0 021 (ROBITUSSIN-AC) 10-100 as needed. mg/5 mL liquid docusate sodium (COLACE) Take 1 capsule (100 90 capsule 1 100 mg capsule mg total) by mouth daily. DULoxetine (CYMBALTA) 60 Take 1 capsule ([address] capsuleIndications: mg total) by mouth Fibromyalgia 2 (two) times a day. folic acid 1 mg Take 1 tablet 90 tablet 3 03/22/2021 tabletIndications: (1,000 mcg total) Arthritis Rheumatoid by mouth daily. ([facility]) levothyroxine (SYNTHROID, Take 1 tablet (100 120 tablet 1 LEVOTHROID) 100 mcg mcg total) by mouth tabletIndications: daily. Hypothyroidism Acquired nebulizer accessories kit Nebulizer, 0 11/28/2020 disposable neb kit x 4, reuseable neb kit x 1, mask x 1, filters x 1. Frequency of use: daily; Medication: albuterol Length of need: 99 months predniSONE (DELTASONE) 5 Take 1 tablet (5 mg 90 tablet 1 mg tabletIndications: total) by mouth Arthritis Rheumatoid daily. ([facility]) traMADoL (ULTRAM) 50 mg as needed. 0 03/26/2021 tablet diclofenac sodium Apply 2 g topically 100 g 1 2 01/15/2022 (Voltaren) 1 % 4 (four) times a gelIndications: Arthritis day. 4 g applied LE Rheumatoid (HCC) at 4 times daily; 2 g applied to UE 4 times daily; MAX 8 g/day to single joint of UE, 16 g/day to any single joint of LE, 32 g/day total. leflunomide (ARAVA) 20 mg Take 1 tablet (20 90 tablet 0 11/09/2021 tabletIndications: mg total) by mouth Arthritis Rheumatoid daily. Remember ([facility]) labs every 3 months. meclizine (ANTIVERT) 25 TAKE 1 TABLET BY 30 tablet 1 202005/17/2021 mg tabletIndications: MOUTH ONCE DAILY Dizziness NEEDED FOR DIZZINESS methotrexate 2.5 mg Take 8 tablets (20 96 tablet 0 05/16/1911/09/2021 tabletIndications: mg total) by mouth Arthritis Rheumatoid once a week. ([facility]) Remember labs every 3 months. omeprazole (PriLOSEC) 20 Take 1 capsule (20 90 capsule 1 07/12/[address] capsule mg total) by mouth every morning before breakfast. documented as of this encounter Plan of Treatment Upcoming Encounters Date Type Specialty Care Team Description 02/01/2022 Comprehensive Visit Family Medicine Cynthia Rockwell, Kuldip PRN, C.N.P. [address] [place] [phone] (Wo rk) documented as of this encounter Procedures Procedure Name Priority Date/Time Associated Diagnosis Comme nts THYROID-STIMULATIN Routine 05/15/2021 10:54 Hypothyroidism Acq uired Results for this G AM CDT procedure are i n HORMONE-SENSITIVE the result s (S-TSH) section. documented in this encounter Results (ABNORMAL) S-TSH (Thyroid-Stimulating Hormone - Sensitive) (05/15/2021 10:54 AM CDT) P athologist Signature TSH, Sensitive 7.0 (H) 0.3 - 4.2 05/15/2021 OWAT mIU/L 1:19 PM CDT Specimen Anatomical Collection Method Collection Time Receive d Time (Source) Location / / Volume Laterality Blood (Blood, 05/15/2021 10:54 05/15/2021 Venous) AM CDT 12:47 PM CDT Celsa Mcgrath APRN C.N.P. LAB BLOOD ADD-ON Performing Organization Address City/State/ZIP Code Phon e Number [facility] [address] [place] [address] [facility] [place] [address] System in [place] [address] documented in this encounter Visit Diagnoses Diagnosis Hypothyroidism Acquired Mohawk Language Deficit - Primary General Medical Examination Adult Hypothyroidism Acquired Arthritis Rheumatoid (HCC) High Risk Medication History Of Falling Encounter For COVID-19 Vaccine Immunizat ion Need Vaccine Immunization Influenza Encounter For Other Screening For Malign ant Neoplasm Of Breast documented in this encounter Care Teams Sales Director Relationship Specialty Start Date End Date Cynthia Rockwell APRN, C.N.P. PCP - General 08/16/162199 [place] [address] documented as of this encounter
--- OUTSIDE RECORDS SUMMARY | 2022-01-21 23:19 | XMS_ITS | Encounter Summary ---
:1955 Author Organization [facility] Address [address] [place] [address] Care Team Providers Name Role Phone Cynthia Rockwell APRN, C.N.P. Primary Care Provider [phone] Encounter Details Date Type Department Care Team Description 01/15/2022 Orders Only [facility] SELF TEST [facility]AC Cynthia Rockwell, Screening Cancer Colon [address] [place], [place] [address] [address] [place] [address] Social History Tobacco Use Types Packs/Day Years [...] 1 to 4 times per year 09/01 zoroastrian services? Do you belong to any clubs [...] Cynthia Rockwell A PRN, C.N.P. [address] [place], [place] [phone] (Wo rk) Scheduled Orders Name Type Priority Associated Diagnoses Order S chedule Cologuard-Sent Out Lab Lab Routine Screening Cancer C olon Expected: 01/29/2022 (Approximate), Expires: 04/17/2023 documented as of this encounter Visit Diagnoses Diagnosis Screening Cancer Colon Azeri Language Deficit - Primary General Medical Examination Adult Hypothyroidism Acquired Arthritis Rheumatoid (HCC) High Risk Medication History Of Falling Encounter For COVID-19 Vaccine Immunizat ion Need Vaccine Immunization Influenza Encounter For Other Screening For Malign ant Neoplasm Of Breast documented in this encounter Care Teams 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 PCP - General 08/16/16 [address], [place] [address] documented as of this encounter
--- OUTSIDE RECORDS SUMMARY | 2022-01-21 23:19 | XMS_ITS | Clinical Summary ---
:1955 Author Organization [facility] Address [address] [place] [address] Care Team Providers Name Role Phone Cynthia Rockwell APRN C.N.P. Primary Care Provider [phone] Source Comments Patient records contain information from all sites at [facility]. For routine questions regarding patient records, call [phone] during business hours, M-F 8:00 AM - 5:00 PM Central Time. Record requests for emergency care only can be directed to [phone] at any time.[facility] Allergies No known active allergies Medications Medication Sig Dispensed Refills Start End Date Status Date DULoxetine Take 1 capsule 60 capsule 11 Act joelle (CYMBALTA) [address] (60 mg total) 9 capsuleIndications: by mouth 2 Fibromyalgia (two) times a day. traZODone (DESYREL) Take 1 tablet 30 tablet 11 Active 50 mg (50 mg total) 0 tabletIndications: by mouth at Disturbance Sleep bedtime as needed for sleep. albuterol 2.5 mg /3 INHALE 3ML VIA 0 Active mL nebulizer A NEBULIZER 1 solution EVERY 4 HOURS NEEDED nebulizer Nebulizer, 0 Active accessories kit disposable neb 1 kit x 4, reuseable neb kit x 1, mask x 1, filters x 1. Frequency of use: daily; Medication: albuterol Length of need: 99 months codeine-guaiFENesin Take 10 mL by 0 Active (ROBITUSSIN-AC) mouth as 1 10-100 mg/5 mL needed. liquid acetaminophen TAKE 2 TABLETS 270 tablet 3 Active (TYLENOL) 500 mg BY MOUTH EVERY 2 tabletIndications: 8 HOURS Fibromyalgia NEEDED FOR MODERATE PAIN OR SCORE OF 4-6 OF 10 ammonium lactate APPLY CREAM 280 g 3 A ctive (AMLACTIN) 12 % TOPICALLY TO 2 cream AFFECTED AREA ONCE DAILY folic acid 1 mg Take 1 tablet 90 tablet 3 Active tabletIndications: (1,000 mcg 2 Arthritis total) by Rheumatoid ([facility]) mouth daily. traMADoL (ULTRAM) as needed. 0 A ctive 50 mg tablet 2 celecoxib Take 200 mg by 0 Activ e (CeleBREX) 200 mg mouth 2 (two) 2 capsule times a day. diclofenac Administer 1 5 mL 0 Active (VOLTAREN) 0.1 % drop into the 2 ophthalmic solution left eye 4 (four) times a day for 14 days. cholecalciferol Take 1 tablet 90 tablet 3 Active (VITAMIN D3) 50 mcg (2,000 Units 2 (2,000 Unit) total) by tabletIndications: mouth daily. Arthritis Rheumatoid ([facility]) docusate sodium Take 1 capsule 90 capsule 1 Active (COLACE) 100 mg (100 mg total) 2 capsule by mouth daily. predniSONE Take 1 tablet 90 tablet 1 Activ e (DELTASONE) 5 mg (5 mg total) 2 tabletIndications: by mouth Arthritis daily. Rheumatoid ([facility]) levothyroxine Take 1 tablet 120 tablet 1 A ctive (SYNTHROID, (100 mcg 2 LEVOTHROID) 100 mcg total) by tabletIndications: mouth daily. Hypothyroidism Acquired meclizine Take 1 tablet 90 tablet 1 Active (ANTIVERT) 25 mg (25 mg total) 2 tabletIndications: by mouth as Dizziness needed for dizziness. omeprazole Take 1 capsule 90 capsule 3 Act joelle (PriLOSEC) [address] (20 mg total) 2 capsule by mouth every morning before breakfast. leflunomide (ARAVA) TAKE 1 TABLET 90 tablet 0 Active 20 mg BY MOUTH ONCE 2 tabletIndications: DAILY REMEMBER Arthritis LABS EVERY 3 Rheumatoid ([facility]) MONTHS methotrexate 2.5 mg TAKE 8 TABLETS 96 tablet 0 Active tabletIndications: BY MOUTH ONCE 2 Arthritis A WEEK Rheumatoid (HCC) REMEMBER LABS EVERY 3 MONTHS diclofenac sodium Apply 2 g 100 g 0 Ac tive (Voltaren) 1 % topically 4 2 gelIndications: (four) times a Arthritis day. 4 g Rheumatoid (HCC) applied LE at 4 times daily; 2 g applied to UE 4 times daily; MAX 8 g/day to single joint of UE, 16 g/day to any single joint of LE, 32 g/day total. diclofenac sodium Apply 2 g 100 g 1 01/16/20 Di scontinued (Voltaren) 1 % topically 4 2 22 (Re order) gelIndications: (four) times a Arthritis day. 4 g Rheumatoid (HCC) applied LE at 4 times daily; 2 g applied to UE 4 times daily; MAX 8 g/day to single joint of UE, 16 g/day to any single joint of LE, 32 g/day total. 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 01/15/2022 Refill Family Medicine Cynthia Rockwell Med Refi ll DIRECTOR PROPERTY, C.N.P. 01/03/2022 Orders Only Cynthia Rockwell APRN, C.N.P. 01/01/2022 Orders Only Women's Health Sandee Soliz D.O., M.P.H. 11/08/2021 Refill Family Medicine Celsa Mcgrath APRN, Med R efill C.N.P. from Last 3 Months Immunizations Name Administration Dates Next Due DT, Pediatric 08/15/2005, 02/15/2005, 01/04/2005 HepA Adult 09/19/2017 HepB, Unspecified 08/15/2005, 02/15/2005, 01/04/2005 Influenza, Unspecified 01/04/2017, 01/19/2016, 12/14/2014, 02/02/2014, 01/14/2013, 01/31/2012, 11/20/2010, 03/31/2007 MCV4 (Menactra) 09/19/2017 MMR 02/15/2005, 01/04/2005 PCV13 09/19/2017 PPSV23 04/11/2021 SARS-COV-2 (COVID-19) - PFIZER (12 08/27/2020, 08/06/2020 years or older) SARS-COV-2 (COVID-19) - PFIZER (05/12/2021 years or older) Tdap 09/19/2017 TyVi (inj) 09/19/2017 JEAN 02/15/2005, 01/04/2005 influenza vaccine quad 01/12/2021, 04/20/2020, 04/14/2019, (FLUZONE/FLUARIX) (6 months and 11/14/2017 older)(PF) Family History Medical History Relation Name Comments KAREN disease Brother Relation Name Status Comments Brother Social History Tobacco Use Types Packs/Day Years Used Date Smoking Tobacco: Never Smokeless Tobacco: Never Tobacco Cessation: Counseling Given: Yes Alcohol Use [...] or relatives? How often do you attend pentecostal or 1 to 4 times per year 09/01 hoahaoism services? 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 [address] [phone] (Wo rk) Health Maintenance Due Date Last Done Comments CT Colonography 1955 Cologuard 1955 Colonoscopy 1955 Zoster Vaccines (1 of 2) 04/12/2005 Colorectal Cancer Screening 10/03/2018 FIT 10/03/2018 10/03/2017 COVID-19 Vaccine (4 - 07/07/2021 05/12/2021, 08/27/2020, Booster for Pfizer series) 08/06/2020 Influenza Vaccine (#1) 2021 01/12/2021, 04/20/2020, 04/14/2019, Additional history exists Mammogram 01/17/2022 01/17/2021, 08/18/2019, 01/08/2018, Additional history exists Lipid (Cholesterol) 03/07/2022 03/07/2017, 09/22/2015 Screening Thyroid Stimulating Hormone 05/15/2022 05/15/2021, 01/13/20 21, (TSH) test for thyroid 08/18/2019, Additional function history exists Fasting Glucose for 02/29/2024 02/28/2021, 09/22/2020, Diabetes Screening 08/09/2019, Additional history exists Cervical Cancer Screening 01/12/2026 01/12/2021, 01/12/2021 , 01/19/2016, Additional history exists Pneumococcal vaccine (0-64 04/11/2026 04/11/2021, 8 years) (3 - PPSV23 if available, else PCV20) DTaP,Tdap,and Td Vaccines 09/20/2027 09/19/2017, 08/15/2005 , (5 - Td or Tdap) 02/15/2005, Additional history exists Hepatitis B Vaccines Completed 08/15/2005, 02/15/2005, 01/04/2005 Depression Screening Completed 04/11/2021 (Annual PHQ-2) HPV Vaccines Aged Out No longer eligib le based on patient 's age to complete this topic Insurance Payer Benefit Plan Subscriber ID Effective Dates Phone Address Type / Group UCARE [employer]ARE [place] [id number] 2021-Presen [phone] [place] [address] [address] [place] [phone] Care Teams Registered Nurse Obstetrics Relationship Specialty Start Date End Date Cynthia Rockwell, DIRECTOR PROPERTY, C.N.P. PCP - General 08/16/[address] [place] [address]
--- OUTSIDE RECORDS SUMMARY | 2022-01-21 23:19 | XMS_ITS | Encounter Summary ---
:1955 Author Organization [facility] Address [address] [place] [address] Care Team Providers Name Role Phone Cynthia Rockwell APRN, C.N.P. Primary Care Provider [phone] Encounter Details Date Type Department Care Team Description 01/01/2022 Orders Only Menopause and Women's Sexual Sandee Soliz D.O., [facility] [address] [facility] [address] [place] [phone] (Wo rk) Social History Tobacco Use Types [...] or relatives? How often do you attend mu-ism or 1 to 4 times per year 09/01 restorationist services? Do you belong to any clubs or No 09/18/2018 organizations such as mu-ism groups, unions, fraternal or athletic groups, or [...] Cynthia Rockwell A PRN, C.N.P. [address], [place] [phone] (Wo rk) documented as of this encounter Visit Diagnoses Not on filedocumented in this encounter Care Teams Director Of Infection Prevention Relationship Specialty Start Date End Date Cynthia Rockwell APRN, C.N.P. PCP - General 08/16/16 [address] [place] [phone] documented as of this encounter
--- OUTSIDE RECORDS SUMMARY | 2022-01-21 23:20 | XMS_ITS | Encounter Summary ---
:1955 Author Organization [facility] Address [address] [place] [address] Care Team Providers Name Role Phone Cynthia Rockwell APRN, C.N.P. Primary Care Provider [phone] Encounter Details Date Type Department Care Team Description 01/12/2021 Hospital Encounter Department of Perry Arana is Rheumatoid (HCC); Laboratory Medicine RSOHAN, C.N .P. Hypothyroidism in [place], [address] [place], [place] [address] [address] [place], [place] [phone] [address] (Work) [phone] Social History Tobacco Use Types Packs/Day Years [...] or relatives? How often do you attend roman catholic or 1 to 4 times per year 09/01 orthodox services? Do you belong to any clubs or No 09/18/2018 organizations such as roman catholic groups, unions, fraternal or athletic groups, or [...] level of school you have completed or e 1st grade 09/18/2018 highest degree you have received? Sex Assigned at Date Recorded Not on file documented as of this encounter Medications at Time of Discharge Medication Sig Dispensed Refills Start Date End Date albuterol 2.5 mg /3 mL INHALE 3ML VIA A 0 021 nebulizer solution NEBULIZER EVERY 4 HOURS NEEDED codeine-guaiFENesin Take 10 mL by mouth 0 021 (ROBITUSSIN-AC) 10-100 as needed. mg/5 mL liquid DULoxetine (CYMBALTA) 60 Take 1 capsule ([address] capsuleIndications: mg total) by mouth Fibromyalgia 2 (two) times a day. nebulizer accessories kit Nebulizer, 0 11/28/2020 disposable neb kit x 4, reuseable neb kit x 1, mask x 1, filters x 1. Frequency of use: daily; Medication: albuterol Length of need: 99 months acetaminophen (TYLENOL) Take 30 mL (960 mg 473 mL 11 12/0304/11/2021 160 mg/5 mL total) by mouth liquidIndications: every 8 (eight) Arthritis Rheumatoid hours as needed for (HCC) pain or fever. ammonium lactate APPLY CREAM 280 g 1 12/21/2020 022 (AMLACTIN) 12 % cream TOPICALLY TO AFFECTED AREA ONCE DAILY cholecalciferol (VITAMIN Take 1 tablet 90 tablet 3 04/20/19 21 05/15/2021 D3) 50 mcg (2,000 Unit) (2,000 Units total) tabletIndications: by mouth daily. Arthritis Rheumatoid (HCC) diclofenac sodium Apply 2 g topically 1 Tube 3 1 05/15/2021 (Voltaren) 1 % 4 (four) times a gelIndications: Arthritis day. 4 g applied LE Rheumatoid (HCC) at 4 times daily; 2 g applied to UE 4 times daily; MAX 8 g/day to single joint of UE, 16 g/day to any single joint of LE, 32 g/day total. docusate sodium (COLACE) Take 1 capsule by 0 06/0305/15/2021 100 mg capsule mouth 2 (two) times a day. folic acid 1 mg Take 1 tablet 90 tablet 1 05/20/20202020 tabletIndications: (1,000 mcg total) Arthritis Rheumatoid by mouth daily. ([facility]) leflunomide (ARAVA) 20 mg Take 1 tablet by 30 tablet 0 03/202001/20/2021 tabletIndications: mouth once daily Arthritis Rheumatoid (HCC) levothyroxine (SYNTHROID, Take 1 tablet (88 90 tablet 3 01/202105/15/2021 LEVOTHROID) 88 mcg mcg total) by mouth tabletIndications: daily. Hypothyroidism Acquired meclizine (ANTIVERT) 25 Take 1 tablet (25 30 tablet 1 04/2001/23/2021 mg tabletIndications: mg total) by mouth Dizziness daily as needed for dizziness. methotrexate 2.5 mg TAKE 8 TABLETS BY 32 tablet 0 01/20/2021 tabletIndications: MOUTH ONCE A WEEK Arthritis Rheumatoid (HCC) omeprazole (PriLOSEC) 20 TAKE 1 CAPSULE BY 90 capsule 3 11/0201/20/[address] capsule MOUTH IN THE MORNING BEFORE BREAKFAST predniSONE (DELTASONE) 5 Take 1 tablet (5 mg 90 tablet 1 05/15/2021 mg tabletIndications: total) by mouth Arthritis Rheumatoid daily. ([facility]) documented as of this encounter Plan of Treatment Upcoming Encounters Date Type Specialty Care Team Description 02/01/2022 Comprehensive Visit Family Medicine Cynthia Rockwell A PRN, C.N.P. [address] [phone] (Wo rk) documented as of this encounter Procedures Procedure Name Priority Date/Time Associated Diagnosis Comme nts SEDIMENTATION RATE, B Routine 01/12/2021 8:37 Arthritis Rheuma toid Results for this AM SPRAY TECHNICIAN ([facility]) procedure are i n the results section. CBC WITH DIFFERENTIAL, Routine 01/12/2021 8:37 Arthritis Rheum atoid Results for this B AM SPRAY TECHNICIAN ([facility]) procedure are i n the results section. C-REACTIVE PROTEIN Routine 01/12/2021 8:37 Arthritis Rheumatoi d Results for this (CRP), S/P AM SPRAY TECHNICIAN ([facility]) procedure are i n the results section. ASPARTATE Routine 01/12/2021 8:37 Arthritis Rheumatoid Resu lts for this AMINOTRANSFERASE (AST), AM SPRAY TECHNICIAN (HCC) proc edure are in S/P the results section. THYROID-STIMULATING Routine 01/12/2021 8:37 Hypothyroidism Res ults for this HORMONE-SENSITIVE AM SPRAY TECHNICIAN procedure are in (S-TSH) the results section. CREATININE WITH EGFR, Routine 01/12/2021 8:37 Arthritis Rheuma toid Results for this S/P AM SPRAY TECHNICIAN (HCC) procedure are i n the results section. documented in this encounter Results Creatinine with Estimated GFR (01/12/2021 8:37 AM SPRAY TECHNICIAN) P athologist Signature Creatinine 0.64 0.59 - 01/12/2021 [facility] 1.04 mg/dL 11:15 AM SPRAY TECHNICIAN eGFR-Black/Afric >90 >=60 01/12/2021 OW[facility] an Russian mL/min/BSA 11:15 AM SPRAY TECHNICIAN Comment: ----ADDITIONAL INFORMATION---- Estimated GFR calculated using the 2009 CKD_EPI creatinine equation. eGFR Non-Black/ >90 >=60 mL/min/BSA 01/12/2021 11:15 AM SPRAY TECHNICIAN OW[facility] Comment: ----ADDITIONAL INFORMATION---- Estimated GFR calculated using the 2009 CKD_EPI creatinine equation. Specimen Anatomical Collection Method Collection Time Receive d Time (Source) Location / / Volume Laterality Blood (Blood, 01/12/2021 8:37 AM 01/13/20 21 Venous) SPRAY TECHNICIAN 10:20 AM SPRAY TECHNICIAN Perry Arana APRN C.N.P. LAB BLOOD ADD-ON Performing Organization Address City/State/ZIP Code Phon e Number [facility]- [address] [place] [address] [facility] [place] [place] [address] System in [place] [address] AST (Aspartate Aminotransferase) (01/12/2021 8:37 AM SPRAY TECHNICIAN) Patholo gist Method Time Signature Aspartate 18 8 - 43 01/12/2021 [facility] Aminotransferase U/L 11:15 AM SPRAY TECHNICIAN (AST), P Specimen Anatomical Collection Method Collection Time Receive d Time (Source) Location / / Volume Laterality Blood (Blood, 01/12/2021 8:37 AM 01/13/20 21 Venous) SPRAY TECHNICIAN 10:20 AM SPRAY TECHNICIAN Perry Arana APRN, C.N.P. LAB BLOOD ADD-ON Performing Organization Address City/State/ZIP Code Phon e Number [facility]- [address] [place] [address] [place] [place] [address] System in [place] [address] (ABNORMAL) CBC with Differential, Blood (01/12/2021 8:37 AM SPRAY TECHNICIAN) [facility] gist Method Time Signature Hemoglobin 12.7 11.6 - 01/12/2021 FB60 15.0 g/dL 9:01 AM SPRAY TECHNICIAN Hematocrit 38.9 35.5 - 01/12/2021 FB60 44.9 % 9:01 AM SPRAY TECHNICIAN Erythrocytes 4.38 3.92 - 01/12/2021 FB60 5.13 9:01 AM SPRAY TECHNICIAN x10(12)/L MCV 88.8 78.2 - 01/12/2021 FB60 97.9 fL 9:01 AM SPRAY TECHNICIAN RBC Distrib Width 14.7 12.2 - 01/12/2021 FB60 16.1 % 9:01 AM SPRAY TECHNICIAN Platelet Count 215 157 - 371 01/12/2021 FB60 x10(9)/L 9:01 AM SPRAY TECHNICIAN Leukocytes 3.3 (L) 3.4 - 9.6 01/12/2021 FB60 x10(9)/L 9:01 AM SPRAY TECHNICIAN Neutrophils 1.53 (L) 1.56 - 01/12/2021 FB60 6.45 9:01 AM SPRAY TECHNICIAN x10(9)/L Lymphocytes 1.17 0.95 - 01/12/2021 FB60 3.07 9:01 AM SPRAY TECHNICIAN x10(9)/L Monocytes 0.46 0.26 - 01/12/2021 FB60 0.81 9:01 AM SPRAY TECHNICIAN x10(9)/L Eosinophils 0.11 0.03 - 01/12/2021 FB60 0.48 9:01 AM SPRAY TECHNICIAN x10(9)/L Basophils 0.01 0.01 - 01/12/2021 FB60 0.08 9:01 AM SPRAY TECHNICIAN x10(9)/L Specimen Anatomical Collection Method Collection Time Receive d Time (Source) Location / / Volume Laterality Blood (Blood, 01/12/2021 8:37 AM 01/13/20 8:38 Venous) SPRAY TECHNICIAN AM SPRAY TECHNICIAN Arlette Joaquin APRN.N.P. LAB BLOOD ADD-ON Performing Organization Address City/State/ZIP Code Phon e Number [place] [address] [place] [address] [facility] [place] [address] System [address] (ABNORMAL) S-TSH (Thyroid-Stimulating Hormone - Sensitive) (01/12/2021 8:37 AM SPRAY TECHNICIAN) P athologist Signature TSH, Sensitive 6.3 (H) 0.3 - 4.2 01/12/2021 [facility] mIU/L 11:11 AM SPRAY TECHNICIAN Specimen Anatomical Collection Method Collection Time Receive d Time (Source) Location / / Volume Laterality Blood (Blood, 01/12/2021 8:37 AM 01/13/20 Venous) SPRAY TECHNICIAN 10:20 AM SPRAY TECHNICIAN Cynthia Rockwell APRN, C.N.P. LAB BLOOD ADD-ON Performing Organization Address City/State/ZIP Code Phon e Number [facility]- [address] [place] [address] [place] [address] System in [place] [address] (ABNORMAL) CRP (C-Reactive Protein) (01/12/2021 8:37 AM SPRAY TECHNICIAN) P athologist Signature C-Reactive 18.4 (H) <=8.0 mg/L 01/12/2021 [facility] Protein (CRP), 11:15 AM SPRAY TECHNICIAN P Specimen Anatomical Collection Method Collection Time Receive d Time (Source) Location / / Volume Laterality Blood (Blood, 01/12/2021 8:37 AM 01/13/20 Venous) SPRAY TECHNICIAN 10:20 AM SPRAY TECHNICIAN Perry Arana APRN, Arlette.N.P. LAB BLOOD ADD-ON Performing Organization Address City/State/ZIP Code Phon e Number [facility]- [address] [place] [address] [place] [address] System in [place] [facility] (ABNORMAL) Sedimentation Rate (01/12/2021 8:37 AM SPRAY TECHNICIAN) Patholo gist Method Time Signature Sedimentation 38 (H) 0 - 29 01/12/2021 [facility] Rate, B mm/1 h 11:52 AM SPRAY TECHNICIAN Specimen Anatomical Collection Method Collection Time Receive d Time (Source) Location / / Volume Laterality Blood (Blood, 01/12/2021 8:37 AM 01/13/20 21 Venous) SPRAY TECHNICIAN 10:20 AM SPRAY TECHNICIAN Perry Arnaa APRN, C.N.P. LAB BLOOD ADD-ON Performing Organization Address City/State/ZIP Code Phon e Number [facility]- [address] [place] [address] [facility] [place] [address] System in [place] [address] [place] [address] documented in this encounter Visit Diagnoses Diagnosis Arthritis Rheumatoid (HCC) Hypothyroidism Slovak Language Deficit - Primary General Medical Examination Adult Hypothyroidism Acquired Arthritis Rheumatoid (HCC) High Risk Medication History Of Falling Encounter For COVID-19 Vaccine Immunizat ion Need Vaccine Immunization Influenza Encounter For Other Screening For Malign ant Neoplasm Of Breast documented in this encounter 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 PCP - General 08/16/[address] [place] [phone] documented as of this encounter
--- OUTSIDE RECORDS SUMMARY | 2022-01-21 23:20 | XMS_ITS | Encounter Summary ---
:1955 Author Organization [facility] Address [address] [place] [address] Care Team Providers Name Role Phone Cynthia Rockwell APRN, C.N.P. Primary Care Provider [phone] Reason for Visit Reason Comments Follow-up Rheumatology- wants pneumo v accine Appointment Request (Routine) - Closed Specialty Diagnoses / Procedures Referred By Contact Refer red To Contact Family Medicine Referral ID Status Reason Start Date Expiration Date Visits Requ ested Visits Authorized [id number] Closed 04/10/2021 04/10/2022 1 1 Encounter Details Date Type Department Care Team Description 04/11/2021 Office Visit Department of [place], Arthritis [facility] Internal Obdulia Lora ([facility]) (Primary Dx) Medicine in [address] [address] [place], [place] [phone] [address] (Work) [phone] Social History Tobacco Use Types Packs/Day Years [...] or relatives? How often do you attend uatsdin or 1 to 4 times per year 09/01 yazidism services? Do you belong to any clubs or No 09/18/2018 organizations such as uatsdin groups, unions, fraternal or athletic groups, or [...] on file documented as of this encounter Last Filed Vital Signs Vital Sign Reading Time Taken Comments Blood Pressure 106/63 04/11/2021 2:37 PM ALEMITE OPERATOR Pulse 71 04/11/2021 2:37 PM ALEMITE OPERATOR Temperature 36 ??C (96.8 ??F) 04/11/2021 2:37 PM ALEMITE OPERATOR Respiratory Rate 16 04/11/2021 2:37 PM ALEMITE OPERATOR Oxygen Saturation - - Inhaled Oxygen Concentration - - Weight 77.7 kg (171 lb 3 oz) 04/11/2021 2:37 PM ALEMITE OPERATOR Height 156 cm (5' 1.42) 04/11/2021 2:37 PM ALEMITE OPERATOR Body Mass Index 31.91 04/11/2021 2:37 PM ALEMITE OPERATOR documented in this encounter Progress Notes Geno Pradhan P.A.-C. - 04/11/2021 3:00 PM CST SUBJECTIVE CHIEF COMPLAINT/REASON FOR VISIT Chief Complaint Patient presents with ??? Follow-up Rheumatology- wants pneumo vaccine HISTORY OF PRESENT ILLNESS Althea Arias is a pleasant 66 y.o. female who presents to the clinic today for pneumonia vaccine. PCP is Cynthia. They would like to schedule an appointment with Cynthia when she returns from [place]. The following portions of the patient's history were reviewed and updated as appropriate: allergies,current medications, family history, medical history, social history, surgical history and problem list. Pertinent positive ROS are listed above in HPI. Patient Active Problem List Diagnosis ??? Arthritis Rheumatoid (HCC) ??? Primary Osteoarthritis Knee Bilateral ??? Dyspepsia ??? Hypothyroidism Acquired ??? Osteopenia ??? High Risk Medication ??? Nodule Rheumatoid (HCC) ??? Fibromyalgia ??? Functional Incontinence Urinary ??? Disturbance Sleep ??? History Of Falling ALLERGIES/CONTRAINDICATIONS No Known Allergies CURRENT MEDICATIONS Current Outpatient Medications: ??? acetaminophen (TYLENOL) 500 mg tablet, TAKE 2 TABLETS BY MOUTH EVERY 8 HOURS NEEDED FOR MODERATE PAIN OR SCORE OF 4-6 OF 10, Disp: 270 tablet, Rfl: 3 ??? albuterol 2.5 mg /3 mL nebulizer solution, INHALE 3ML VIA A NEBULIZER EVERY 4 HOURS NEEDED, Disp: , Rfl: ??? ammonium lactate (AMLACTIN) 12 % cream, APPLY CREAM TOPICALLY TO AFFECTED AREA ONCE DAILY, Disp:280 g, Rfl: 3 ??? celecoxib (CeleBREX) 200 mg capsule, Take 200 mg by mouth 2 (two) times a day., Disp: , Rfl: ??? cholecalciferol (VITAMIN D3) 50 mcg (2,000 Unit) tablet, Take 1 tablet (2,000 Units total) by mouth daily., Disp: 90 tablet, Rfl: 3 ??? codeine-guaiFENesin (ROBITUSSIN-AC) 10-100 mg/5 mL liquid, Take 10 mL by mouth., Disp: , Rfl: ??? diclofenac sodium (Voltaren) 1 % gel, Apply 2 g topically 4 (four) times a day. 4 g applied LE at 4 times daily; 2 g applied to UE 4 times daily; MAX 8 g/day to single joint of UE, 16 g/day to any single joint of LE, 32 g/day total., Disp: 1 Tube, Rfl: 3 ??? docusate sodium (COLACE) 100 mg capsule, Take 1 capsule by mouth 2 (two) times a day., Disp: , Rfl: ??? DULoxetine (CYMBALTA) [address] capsule, Take 1 capsule (60 mg total) by mouth 2 (two) times a day., Disp: 60 capsule, Rfl: 11 ??? folic acid 1 mg tablet, Take 1 tablet (1,000 mcg total) by mouth daily., Disp: 90 tablet, Rfl: 3 ??? leflunomide (ARAVA) 20 mg tablet, Take 1 tablet (20 mg total) by mouth daily. Remember labs every 3 months., Disp: 90 tablet, Rfl: 0 ??? levothyroxine (SYNTHROID, LEVOTHROID) 88 mcg tablet, Take 1 tablet (88 mcg total) by mouth daily., Disp: 90 tablet, Rfl: 3 ??? meclizine (ANTIVERT) 25 mg tablet, TAKE 1 TABLET BY MOUTH ONCE DAILY NEEDED FOR DIZZINESS, Disp: 30 tablet, Rfl: 1 ??? methotrexate 2.5 mg tablet, Take 8 tablets (20 mg total) by mouth once a week. Remember labs every 3 months., Disp: 96 tablet, Rfl: 0 ??? nebulizer accessories kit, Nebulizer, disposable neb kit x 4, reuseable neb kit x 1, mask x 1, filters x 1. Frequency of use: daily; Medication: albuterol Length of need: 99 months, Disp: , Rfl: ??? omeprazole (PriLOSEC) [address] capsule, Take 1 capsule (20 mg total) by mouth every morning before breakfast., Disp: 90 capsule, Rfl: 1 ??? predniSONE (DELTASONE) 5 mg tablet, Take 1 tablet (5 mg total) by mouth daily., Disp: 90 tablet,Rfl: 1 ??? traMADoL (ULTRAM) 50 mg tablet, , Disp: , Rfl: ??? acetaminophen (TYLENOL) 160 mg/5 mL liquid, Take 30 mL (960 mg total) by mouth every 8 (eight) hours as needed for pain or fever., Disp: 473 mL, Rfl: 11 ??? traZODone (DESYREL) 50 mg tablet, Take 1 tablet (50 mg total) by mouth at bedtime as needed for sleep., Disp: 30 tablet, Rfl: 11 OBJECTIVE VITAL SIGNS Vitals: 04/11/21 1437 BP: 106/63 Pulse: 71 Resp: 16 Temp: 36 ??C PHYSICAL EXAMINATION General: Well-nourished, well-developed 66 y.o. in no apparent distress. Awake, alert, age appropriate. No further physical exam was done. ASSESSMENT / PLAN IMPRESSION/REPORT/PLAN: #1 Arthritis Rheumatoid (HCC) Patient is here to receive the pneumonia vaccine (PPSV23) due to an immuno compromising condition. She had previously received the PCV13 in 2018. Other orders - PPSV23: pneumococcal polysaccharide vaccine (24 months and older) If symptoms worsen or do not improve, patient is instructed to seek further medical attention. All questions have been answered. Patient demonstrated understanding and verbalized agreement with the plan. Geno Pradhan P.A.-C. ITE OPERATOR documented in this encounter Plan of Treatment Upcoming Encounters Date Type Specialty Care Team Description 02/01/2022 Comprehensive Visit Family Medicine Cynthia Rockwell A PRN, C.N.P. [address] [place], [place] [phone] (Wo rk) documented as of this encounter Visit Diagnoses Diagnosis Arthritis Rheumatoid (HCC) - Primary Senegalese Language Deficit - Primary General Medical Examination Adult Hypothyroidism Acquired Arthritis Rheumatoid (HCC) High Risk Medication History Of Falling Encounter For COVID-19 Vaccine Immunizat ion Need Vaccine Immunization Influenza Encounter For Other Screening For Malign ant Neoplasm Of Breast documented in this encounter Care Teams Human Resources Communications Manager Relationship Specialty Start Date End Date Cynthia Rockwell APRN, C.N.P. PCP - General 08/16/16 [address], [place] [phone] documented as of this encounter
--- OUTSIDE RECORDS SUMMARY | 2022-01-21 23:20 | XMS_ITS | Encounter Summary ---
:1955 Author Organization [facility] Address [address] [place] [address] Care Team Providers Name Role Phone Cynthia Rockwell APRN, C.N.P. Primary Care Provider [phone] Reason for Visit Reason Comments Med Refill Encounter Details Date Type Department Care Team Description 03/06/2021 Refill Department of Family Medicine, Corry Gold M.D. Med Refill [facility], in [address] [place] [phone] [place] [address] [place] [address] [phone] Social History Tobacco Use Types Packs/Day Years [...] or relatives? How often do you attend evangelical or 1 to 4 times per year 09/01 moravian services? Do you belong to any clubs or No 09/18/2018 organizations such as evangelical groups, unions, fraternal or athletic groups, or [...] Cynthia Rockwell A PRN, C.N.P. [address] [place], [place] [phone] (Wo rk) documented as of this encounter Visit Diagnoses Diagnosis Fibromyalgia Slovak Language Deficit - Primary General Medical Examination Adult Hypothyroidism Acquired Arthritis Rheumatoid (HCC) High Risk Medication History Of Falling Encounter For COVID-19 Vaccine Immunizat ion Need Vaccine Immunization Influenza Encounter For Other Screening For Malign ant Neoplasm Of Breast documented in this encounter Care Teams Lead Machinist Relationship Specialty Start Date End Date Cynthia Rockwell APRN, C.N.P. PCP - General 08/16/16 [address], [place] [phone] documented as of this encounter
--- OUTSIDE RECORDS SUMMARY | 2022-01-21 23:20 | XMS_ITS | Encounter Summary ---
:1955 Author Organization [facility] Address [address] [place] [id number] Care Team Providers Name Role Phone Cynthia Rockwell APRN, C.N.P. Primary Care Provider [phone] Encounter Details Date Type Department Care Team Description 03/22/2021 Hospital Encounter Department of [facility] Arana is Rheumatoid (HCC); [facility] (H[facility]) [facility], in [address] [place] [address] [place] [address] [place], [place] [phone] (Work) [phone] Social History Tobacco Use Types Packs/Day Years [...] or relatives? How often do you attend restoration or 1 to 4 times per year 09/01 buddhist services? Do you belong to any clubs or No 09/18/2018 organizations such as restoration groups, unions, fraternal or athletic groups, or [...] cream TOPICALLY TO AFFECTED AREA ONCE DAILY codeine-guaiFENesin Take 10 mL by mouth 0 021 (ROBITUSSIN-AC) 10-100 as needed. mg/5 mL liquid DULoxetine (CYMBALTA) 60 Take 1 capsule ([address] capsuleIndications: mg total) by mouth Fibromyalgia 2 (two) times a day. folic acid 1 mg Take 1 tablet 90 tablet 3 03/22/2021 tabletIndications: (1,000 mcg total) Arthritis Rheumatoid by mouth daily. (HCC) nebulizer accessories kit Nebulizer, 0 11/28/2020 disposable [...] as needed for (HCC) pain or fever. cholecalciferol (VITAMIN Take 1 tablet 90 tablet [...] capsule mouth 2 (two) times a day. leflunomide (ARAVA) 20 mg Take 1 tablet (20 90 tablet 0 05/15/2021 tabletIndications: mg total) by mouth Arthritis Rheumatoid daily. Remember ([facility]) labs every 3 months. levothyroxine (SYNTHROID, Take 1 tablet (88 90 tablet 3 01/202105/15/2021 LEVOTHROID) 88 mcg mcg total) by mouth tabletIndications: daily. Hypothyroidism Acquired meclizine (ANTIVERT) 25 TAKE 1 TABLET BY 30 tablet 1 202005/17/2021 mg tabletIndications: MOUTH ONCE DAILY Dizziness NEEDED FOR DIZZINESS methotrexate 2.5 mg Take 8 tablets (20 96 tablet 0 03/22/19 22 05/15/2021 tabletIndications: mg total) by mouth Arthritis Rheumatoid once a week. ([facility]) Remember labs every 3 months. omeprazole (PriLOSEC) 20 Take 1 capsule (20 90 capsule 1 07/12/[address] capsule mg total) by mouth every morning before breakfast. predniSONE (DELTASONE) 5 Take 1 tablet (5 mg 90 tablet 1 05/15/2021 mg tabletIndications: total) by mouth Arthritis Rheumatoid daily. ([facility]) documented as of this encounter Miscellaneous Notes Result Encounter Note - Cynthia Rockwell APRN, C.N.P. - 03/27/2021 10:34 AM METHODS AND PROCEDURES ANALYST Please contact the patient with an tele grout sewer line repairer or her son who speaks Lao to see if she would like to proceed with a CT scan of her chest for further evaluation of the change noted on her recent x-ray at her rheumatology appointment. Let her know the scan would be done in [place]. ODS AND PROCEDURES ANALYST documented in this encounter Plan of Treatment Upcoming Encounters Date Type Specialty Care Team Description 02/01/2022 Comprehensive Visit Family Medicine EricCynthia terrazas, Kuldip PRN, C.N.P. [address] [place] [address] [phone] (Wo rk) documented as of this encounter Procedures Procedure Name Priority Date/Time Associated Comments Diagnosis DX CHEST AP OR PA RAD - Routine 03/22/2021 4:07 Arthritis Result s for this AND LATERAL 2 (most inpatients PM METHODS AND PROCEDURES ANALYST Rheumatoid (HCC ) procedure are in VIEWS and all Nodule Rheumatoid the result s outpatients) (HCC) section. documented in this encounter Results DX Chest AP or PA and Lateral 2 Views (03/22/2021 4:07 PM METHODS AND PROCEDURES ANALYST) Anatomical Region Laterality Modality Chest, Thoracic RST LOS, Thoracic ARZ LOS, Thoracic N/A Digital Radiography FLA LOS Specimen (Source) Anatomical Collection Method Collection Time Re ceived Time Location / / Volume Laterality 03/22/2021 4:17 PM METHODS AND PROCEDURES ANALYST Impressions 03/22/2021 4:19 PM METHODS AND PROCEDURES ANALYST Focal density projecting over the posterior left lung base has enlarged slightly from the prior study o f 01/16/2019 and is new from 06/11/2019. This density has an appearance suggestiv e of a Bochdalek hernia. Given the compression fracture of a vertebral body at the thoracic lumbar junction, it is possible that this relates to post traum atic diaphragmatic hernia. CT examination may be helpful, if clinicall y indicated. Chest otherwise stable. Calcified tortuo us aorta. Cardiac silhouette within normal limits for overall size. No findi ngs to suggest active tuberculous infection. Narrative 03/22/2021 4:19 PM METHODS AND PROCEDURES ANALYST EXAM: ??DX CHEST AP OR PA AND LATERAL 2 VIEWS Procedure Note Papi Perez M.D., Ph.D. - 03/22/2021 EXAM: DX CHEST AP OR PA AND LATERAL 2 EWS IMPRESSION: Focal density projecting over the licensed prosthetist ior left lung base has enlarged slightly from the prior study o f 01/16/2019 and is new from 06/11/2019. This density has an appearance suggestiv e of a Bochdalek hernia. Given the compression fracture of a vertebral body at the thoracic lumbar junction, it is possible that this relates to post traum atic diaphragmatic hernia. CT examination may be helpful, if clinicall y indicated. Chest otherwise stable. Calcified tortuo us aorta. Cardiac silhouette within normal limits for overall size. No findi ngs to suggest active tuberculous infection. [place] Arana APRN, C.N.P. IMG DIAGNOSTIC IMAGING PRO CEDURES documented in this encounter Visit Diagnoses Diagnosis Arthritis Rheumatoid (HCC) Nodule Rheumatoid (HCC) Lao Language Deficit - Primary General Medical Examination Adult Hypothyroidism Acquired Arthritis Rheumatoid (HCC) High Risk Medication History Of Falling Encounter For COVID-19 Vaccine Immunizat ion Need Vaccine Immunization Influenza Encounter For Other Screening For Malign ant Neoplasm Of Breast documented in this encounter Care Teams Cephalometric Tracer Relationship Specialty Start Date End Date Cynthia Rockwell APRN, C.N.P. PCP - General 08/16/162199 [address] [address] documented as of this encounter
--- OUTSIDE RECORDS SUMMARY | 2022-01-21 23:20 | XMS_ITS | Encounter Summary ---
:1955 Author Organization [facility] Address [address] [place] [address] Care Team Providers Name Role Phone Cynthia Rockwell APRN, C.N.P. Primary Care Provider [phone] Reason for Visit Reason Comments Med Refill Encounter Details Date Type Department Care Team Description 12/20/2020 Refill Division of Rheumatology in [place] Arana APRN, Med Refill [place], [place] C.N.P. [address] [facility] [address] [place] [address] [place] [address] [phone] (Wo rk) Social History Tobacco Use Types [...] or relatives? How often do you attend congregation or 1 to 4 times per year 09/01 jain services? Do you belong to any clubs or No 09/18/2018 organizations such as congregation groups, unions, fraternal or athletic groups, or [...] Cynthia Rockwell A PRN, C.N.P. [address], [place] [phone] (Wo rk) documented as of this encounter Visit Diagnoses Diagnosis Arthritis Rheumatoid (HCC) Amharic Language Deficit - Primary General Medical Examination Adult Hypothyroidism Acquired Arthritis Rheumatoid (HCC) High Risk Medication History Of Falling Encounter For COVID-19 Vaccine Immunizat ion Need Vaccine Immunization Influenza Encounter For Other Screening For Malign ant Neoplasm Of Breast documented in this encounter Care Teams Industrial Arts Teacher Relationship Specialty Start Date End Date Cynthia Rockwell APRN, C.N.P. PCP - General 08/16/16 [address], [place] [address] documented as of this encounter
--- OUTSIDE RECORDS SUMMARY | 2022-01-21 23:20 | XMS_ITS | Encounter Summary ---
:[address] [facility] Address [address] [place] [address] Care Team Providers Name Role Phone Cynthia Rockwell APRN, C.N.P. Primary Care Provider [phone] Reason for Visit Reason Comments Annual Exam Appointment Request (Routine) - Closed Specialty Diagnoses / Procedures Referred By Contact Refer red To Contact Family Medicine Referral ID Status Reason Start Date Expiration Date Visits Requ ested Visits Authorized [id number] Closed 11/21/2020 11/21/2021 1 1 Encounter Details Date Type Department Care Team Description 01/12/2021 Comprehensive Visit Department of Cynthia Rockwell Medical Examination Adult (Primary Dx); Family MedicineBrandon APRN, English Juan toney Deficit; [facility], C.N.P. Pap Smear Examination; in [place] Arthritis Rheu matoid (HCC); [facility] High Risk Medication; [address] [place], [place] Hypothyroidism Acquired; [place] [address] Screening Cancer Colon; [phone] Need Vaccine Immunization [facility] Social History Tobacco Use Types Packs/Day Years [...] 1 to 4 times per year 09/01 hinduism services? Do you belong to any clubs [...] Sign Reading Time Taken Comments Blood Pressure 98/59 01/12/2021 9:01 AM POTATO CHIP FRIER average Pulse 69 01/12/2021 9:01 AM POTATO CHIP FRIER average Temperature 36.1 ??C (96.9 ??F) 01/12/2021 9:01 AM POTATO CHIP FRIER Respiratory Rate 20 01/12/2021 9:01 AM POTATO CHIP FRIER Oxygen Saturation - - Inhaled Oxygen Concentration - - Weight 76.9 kg (169 lb 8.5 oz) 01/12/2021 9:01 AM POTATO CHIP FRIER Height 156 cm (5' 1.42) 01/12/2021 9:01 AM POTATO CHIP FRIER Body Mass Index 31.6 01/12/2021 9:01 AM POTATO CHIP FRIER documented in this encounter Patient Instructions Patient InstructionsCynthia Rockwell, SOHAN, C.N.P. - 01/12/2021 9:00 AM POTATO CHIP FRIER Images from the original note were not included. Patient Education Pap Test A Pap Test A Pap test screens for cervical cancer. It can be done with a pelvic exam. A Pap involves collectingcells from your cervix, the lower, narrow end of your uterus that???s at the top of your vagina. Thecells are placed directly on a glass slide or put into a bottle filled with liquid. The cells are then sent to a lab where they are studied. The study of cells is called cytology. Screening for pre-cancerous cells is the first step in stopping the possible development of cervical cancer. When do you need a Pap test? Medical organizations recommend you should have your first Pap at age 21. Then, it is suggested you have a Pap every three years. After age 30, you may have a Pap every three to five years if you???ve had many negative tests in a row. In women over 30, the Pap is often combined with a test for human papillomavirus, also called HPV. HPV is a common sexually transmitted infection that can cause cervical cancer is some women. You may be advised by your health care provider for additional scheduled testing if you have any of the following factors: ?? A diagnosis of cervical cancer or a Pap that showed precancerous cells ?? Exposure to a synthetic hormone estrogen called diethylstilbestrol, or NORMA, before ?? HIV infection ?? Weakened immune system because of organ transplant, chemotherapy or chronic corticosteroid use When can you stop having a Pap? Talk about your screening options with your health care provider. In certain situations you and yourhealth care provider may decide to end Pap testing. These may include: ?? After surgical removal of the uterus and cervix. This is called a total hysterectomy. If your hysterectomy was performed for a noncancerous condition, such as uterine fibroids, you may be able to discontinue routine Pap tests. But if your hysterectomy was for a precancerous or cancerous condition, your health care provider may recommend having a routine Pap test. ?? Older age. Older women may consider stopping routine Pap tests. Medical guidelines suggest you can stop having tests at 65 if you have had three negative tests in the last 10 years. However, specialconsiderations are given if you have had any Pap test abnormality within the last 20 years. Sometimes screening is suggested to continue and more follow-up care is needed. Also, if you have a weakened immune system you may have to continue Pap screening beyond age 65. Pap results A Pap test is a safe way to screen for cervical cancer. However, a Pap test isn???t foolproof. It ispossible to receive false-negative results. There is no perfect test. Factors that can cause a false-negative result include: ?? Not getting enough cells to study. ?? Having a small number of abnormal cells. ?? Blood or inflammatory cells hiding the abnormal cells. Although it is possible for abnormal cells to go undetected, time is on your side. Cervical cancer usually takes several years to develop. And if one test doesn???t find the abnormal cells, the next test most likely will. Preparing for your Pap There is nothing you need to do to prepare for your Pap test. It is suggested that you: ?? Do not have sex, douche or use any vaginal medicines or spermicidal foams, creams or jellies for two days before a Pap test. ?? Not schedule a Pap test during your menstrual period. The test can be done during your menstrual period, but it is best to schedule it at another time if possible. However, if you have abnormal bleeding do not delay your Pap test. There is no proven research that shows doing the above before a Pap test affects the results. However, these are reasonable suggestions to follow to help you get the best results possible. Do not skip your Pap appointment even if you did not follow the above suggestions. During a Pap A Pap is performed as an outpatient procedure in a medical exam room. You lie on your back on an exam table with your knees bent and your heels resting in supports called stirrups. Your health care provider gently puts an instrument called a speculum into your vagina. See Figure 1. Putting the speculum into your vagina may cause you to feel pressure in your pelvic area. The speculum holds the cruz of the vagina apart so your health care provider can see your cervix. Your health care provider takes a sample of your cervical cells. This usually does not hurt. Your health care provider puts the cell sample collected from your cervix into a container holding liquid or onto a glass slide. The sample is delivered to a lab where it is examined under a microscope. Lab technicians look for characteristics in the cells that show cancer or a precancerous condition. After your Pap test, you can go about your day without any restrictions. Results Discuss your Pap results with your health care provider. Understand your results and how they affectyou and your health. Talk with your health care provider about what happens next. Normal results If only normal cervical cells were discovered, you have a negative result. You do not need any further treatment or testing until your next Pap and pelvic exam. Abnormal results If abnormal or unusual cells were discovered, you have a positive result. A positive result does notmean you have cervical cancer. It depends on the type of cells discovered in your Pap test. ?? Low-grade - This finding means that early changes in your cells have been discovered. This is called mild dysplasia. If you have this result, additional follow-up care and discussion with your health care provider is needed. ?? High-grade - This finding means that your cervical cells look very different from normal cells. This is called moderate to severe dysplasia. If you have this result, the abnormal cells usually need to be removed. Ask your health care provider about when you can expect the results of your Pap test. Results are usually available within a week. A member of your health care team contacts you with the results when they are available. You may receive results by letter, phone, or through the patient portal if you have chosen to receive your results online. If you have questions about your condition or about the information in this material, talk with yourhealth care provider. This material is for your education and information only. This content does not replace medical advice, diagnosis or treatment. New medical research may change this information. If you have questions about a medical condition, always talk with your health care provider. ? 2013 [facility] Medical Education [facility] ([facility]). All rights reserved. [id number] TO CHIP FRIER documented in this encounter H&P Notes Cynthia Rockwell APRN, C.N.P. - 01/12/2021 9:00 AM CST CHIEF COMPLAINT: Chief Complaint Patient presents with ??? Annual Exam HISTORY OF PRESENT ILLNESS: Althea is here with her son who is interpreting at her request for annual exam. She is due for Pap smear. She will have mammogram today. She has rheumatoid arthritis on daily prednisone, Arava and methotrexate, she follows with rheumatology. Labs were drawn today for her high-risk medications. Hypothyr oidism has been stable on levothyroxine 75 mcg daily. Checking TSH today. She will do Cologuard for colon cancer screening. She would like influenza immunization today. She declines Pneumovax today. She was vaccinated with Moderna for COVID-19 at the [facility] in [place]. REVIEW OF SYSTEMS: A 10 system review of constitutional, cardiovascular, respiratory, musculoskeletal, endocrine, skin,HEENT, genitourinary, psychiatric and neurologic systems was obtained and is unremarkable except as noted above. HISTORY: The following portions of the patient's history were reviewed and updated as appropriate: allergies,current medications, family history, medical history, social history, surgical history and problem list. VITALS: Temperature: [36.1 ??C] 36.1 ??C Resp Rate: [20] 20 Blood Pressure: (98)/(59) 98/59 Pulse Rate: [69] 69 LABS and DIAGNOSTICS: Creatinine, AST, CBC, CRP, sed rate and TSH are pending. Pap smear is pending. PHYSICAL EXAM: General: In general, the patient is a pleasant female who appears her stated age. Skin: Without lesion. EYES: PERRLA. EOMI intact. Fundi sharp discs. Conjunctiva and lids normal. ENT: Tympanic membranes clear bilaterally. Nasal mucosa without erythema or congestion. Mouth without erythema or exudate. Lymph Nodes: Neck supple without adenopathy, no thyromegaly. Carotid pulses are equal bilaterally. Breasts: No skin or nipple retraction. No palpable mass. No axillary adenopathy. No nipple discharge. Peripheral Vessels: Femoral, dorsal, pedal and posterior tibial pulses are equal. Heart: Regular rate and rhythm without murmur. Lungs: Clear to auscultation, good inspiratory effort. Abdomen: Soft, nontender, no palpable mass, no hepatosplenomegaly. Genitalia: Bartholin, urethra, vagina and cervix are without lesion. Thin-Prep Pap smear done with spatula and Cytobrush. Bimanual examination reveals uterus is midline, mobile, nontender. No adnexal masses. Spine: Normal range of motion. No CVA tenderness. Joints: Normal range of motion. Extremities: Warm, dry, no cyanosis or peripheral edema. Mental Status: Alert and oriented times three. Neurologic: Deep tendon reflexes are +2 and symmetrical. ASSESSMENT/PLAN: #1 Canadian Language Deficit Her son served as Belgian lang interpreter at her request. #2 General Medical Examination Adult #3 Pap Smear Examination Work on getting 30 minutes of exercise 5 days per week. Eat a balanced diet rich in fresh fruits, vegetables, lean protein, healthy fats (olive oil, avocado), and whole grains. Avoid processed and fried food as well as food low in nutritional content such as soda, candy, bakery goods, etc. Get adequate calcium in your diet. I encourage you to get 1794-6222 mg daily. Each serving of dairy has about 200-300 mg of calcium. If you do not get enough in your diet, you may want to consider a calcium supplement unless you have a history of kidney stones or have otherwise been told to avoid calcium supplementation. Schedule a routine dental visit if you have not recently had one. I encouraged these every 6months. Schedule an eye exam if you have not recently had one. I recommend eye exams every 1-2 years. I recommend 7-9 hours of sleep per night. - ThinPrep w/HPV Co-Test Screen - HPV with Genotyping, PCR, ThinPrep #4 Arthritis Rheumatoid (HCC) #5 High Risk Medication She follows with rheumatology, appointment will be scheduled, labs were drawn today. #6 Hypothyroidism Acquired Checking TSH, continue levothyroxine 75 mcg daily. I will contact her with results and adjust medication if indicated. #7 Screening Cancer Colon - Cologuard-Sent Out Lab; Future; Expected date: 01/13/2021 #8 Need Vaccine Immunization Influenza Influenza immunization given today. Learning needs assessment was performed. Canadian is not first language; used a Audicus lang interpreter. Explained diagnosis and treatment plan. Through lang interpreter, patient expressed understanding and was able to teach back. TO CHIP FRIER documented in this encounter Plan of Treatment Upcoming Encounters Date Type Specialty Care Team Description 02/01/2022 Comprehensive Visit Family Medicine Cynthia Rockwell A PRN, C.N.P. [address] [phone] (Wo rk) documented as of this encounter Procedures Procedure Name Priority Date/Time Associated Diagnosis Comme nts THINPREP W/HPV Routine 01/12/2021 9:18 AM Pap Smear Results for this CO-TEST SCREEN POTATO CHIP FRIER Examination procedure are in the results section. HPV WITH Routine 01/12/2021 9:18 AM Results f or this GENOTYPING, PCR, POTATO CHIP FRIER procedure a re in THINPREP the results section. documented in this encounter Results HPV with Genotyping, PCR, ThinPrep (01/12/2021 9:18 AM POTATO CHIP FRIER) P athologist Signature HPV with Negative Negative 01/13/2021 [facility] Genotyping, 6:20 PM POTATO CHIP FRIER ThinPrep, PCR Comment: Negative for high risk HPV by nucleic ac id amplification. ??The following high risk HPV types were not detected: 16, 18, 31, 33, 35, 39, 45, 51, 52, 56, 58, 59, 66, and 68 Specimen Anatomical Collection Method Collection Time Receive d Time (Source) Location / / Volume Laterality Varies 01/12/2021 9:18 AM 8:10 POTATO CHIP FRIER AM POTATO CHIP FRIER Cynthia Rockwell APRN, C.N.P. LAB MICROBIOLOGY - GENERAL ORDERABLES Performing Organization Address City/State/ZIP Code Phon e Number [facility]- [address] [place] [id number] [place] [address] [address] ThinPrep w/HPV Co-Test Screen (01/12/2021 9:18 AM POTATO CHIP FRIER) Component Value Ref Test Analysis Performed Pathologis t Range Method Time At Signature 01/18/2021 [facility] 10:13 AM POTATO CHIP FRIER Report LETTY Bennett(ASCP) 01/18/2021 [facility] electronically 10:13 AM signed by POTATO CHIP FRIER I verify that I have examined all relevant slides/materials for the specimen(s) and rendered or confirmed the diagnosis. Gross Description Received specimen 01/18/2021 [facility] Y in a ThinPrep 10:13 AM vial. POTATO CHIP FRIER Pap Test Source Cervical/Endocervi 01/18/2021 [facility] malaika 10:13 AM POTATO CHIP FRIER Menstrual PM 01/18/2021 [facility] Status(LMP, PM, 10:13 AM ) POTATO CHIP FRIER Hormone None/Not known 01/18/2021 [facility] Therapy/Contracep 10:13 AM tives POTATO CHIP FRIER Interpretation Cervical/Endocervical ??(ThinPrep): 01/18/2021 [facility] 10:13 AM Satisfactory for Evaluation POTATO CHIP FRIER Negative for Intraepithelial Lesion or Malignancy High Risk HPV: ??Negative Negative for High Risk HPV by nucleic acid amplification. The following High Risk HPV types were not detected: 16, 18, 31, 33, 35, 39, 45, 51, 52, 56, 58, 59, 66, and 68. Specimen Anatomical Collection Method Collection Time Receive d Time (Source) Location / / Volume Laterality Varies 01/12/2021 9:18 AM 11/12/202 1 8:10 (Cervix/Endocerv POTATO CHIP FRIER AM POTATO CHIP FRIER ix) Narrative This result has an attachment that is no t available. Cynthia Rockwell APRN, C.N.P. LAB PAP PATHDX ORDERABLES Performing Organization Address City/State/ZIP Code Phon e Number [facility]- [address] [place], [place] [id number] [place] [address] [place] [address] [facility] Cytology [facility] [facility] documented in this encounter Visit Diagnoses Diagnosis General Medical Examination Adult - Prim pravin Canadian Language Deficit Pap Smear Examination Arthritis Rheumatoid (HCC) High Risk Medication Hypothyroidism Acquired Screening Cancer Colon Need Vaccine Immunization Influenza Canadian Language Deficit - Primary General Medical Examination Adult Hypothyroidism Acquired Arthritis Rheumatoid (HCC) High Risk Medication History Of Falling Encounter For COVID-19 Vaccine Immunizat ion Need Vaccine Immunization Influenza Encounter For Other Screening For Malign ant Neoplasm Of Breast documented in this encounter Care Teams Hot Metal Charger Relationship Specialty Start Date End Date Cynthia Rockwell APRN C.N.P. PCP - General 08/16/[address] [address] documented as of this encounter
--- OUTSIDE RECORDS SUMMARY | 2022-01-21 23:20 | XMS_ITS | Encounter Summary ---
:1955 Author Organization [facility] Address [address] [place] [address] Care Team Providers Name Role Phone Cynthia Rockwell APRN, C.N.P. Primary Care Provider Encounter Details Date Type Department Care Team Description 05/12/2021 Immunization Department of [facility] Cynthia Rockwell APR N, Medicine, [facility], C.N. P. in [facility] phyllis [address] [facility] [place] [phone] (Wo rk) Social History Tobacco Use Types [...] Cynthia Rockwell A PRN, C.N.P. [address], [place] [phone] (Wo rk) documented as of this encounter Visit Diagnoses Not on filedocumented in this encounter Care Teams It Web Development Consultant Relationship Specialty Start Date End Date Cynthia Rockwell APRN, C.N.P. PCP - General 08/16/16 [address] [place] [phone] documented as of this encounter
--- OUTSIDE RECORDS SUMMARY | 2022-01-21 23:20 | XMS_ITS | Encounter Summary ---
:1955 Author Organization [facility] Address [address] [place] [address] Care Team Providers Name Role Phone Cynthia Rockwell APRN, C.N.P. Primary Care Provider [phone] Encounter Details Date Type Department Care Team Description 03/27/2021 Clinical Communication Department of [facility] Christi Rockwell, Medicine, [place] SOHAN, C.N.P. [facility], in [facility] [address] [address] [place], [place] [phone] (Work) [phone] Social History Tobacco Use Types Packs/Day Years [...] 1 to 4 times per year 09/01 baptist services? Do you belong to any clubs [...] this encounter Miscellaneous Notes Telephone Encounter - Indigo Kirkpatrick R.N. - 03/30/2021 2:33 PM CST [employer] #[id number] Left message for patient to return call to clinic. Does the patient need to speak to nursing? no Action needed: Please inform patient of - ----- Message from Cynthia Rockwell APRN, C.N.PShelton sent at 03/27/2021 10:34 AM AIR POLLUTION SPECIALIST ----- Please contact the patient with an concrete paver or her son who speaks Iranian to see if she would like to proceed with a CT scan of her chest for further evaluation of the change noted on her recent x-ray at her rheumatology appointment. ??Let her know ??the scan would be done in [place]. POLLUTION SPECIALIST Telephone Encounter - Indigo Kirkpatrick R.N. - 03/28/2021 3:14 PM CST Left message for patient to return call to clinic. Does the patient need to speak to nursing? no Action needed: Please inform patient of message - ----- Message from Cynthia Rockwell APRN, C.N.PShelton sent at 03/27/2021 10:34 AM AIR POLLUTION SPECIALIST ----- Please contact the patient with an concrete paver or her son who speaks Iranian to see if she would like to proceed with a CT scan of her chest for further evaluation of the change noted on her recent x-ray at her rheumatology appointment. Let her know the scan would be done in [place]. POLLUTION SPECIALIST Telephone Encounter - Indigo Kirkpatrick R.N. - 03/27/2021 4:35 PM CST Left message for patient to return call to clinic. Does the patient need to speak to nursing? yes Action needed: Transfer to RN to discuss provider message. [employer] Technical Information Specialist used: #[id number] POLLUTION SPECIALIST Telephone Encounter - Indigo Kirkpatrick R.N. - 03/27/2021 4:31 PM CST ----- Message from Cynthia Rockwell APRN, C.N.PShelton sent at 03/27/2021 10:34 AM AIR POLLUTION SPECIALIST ----- Please contact the patient with an concrete paver or her son who speaks Iranian to see if she would like to proceed with a CT scan of her chest for further evaluation of the change noted on her recent x-ray at her rheumatology appointment. Let her know the scan would be done in [place]. POLLUTION SPECIALIST documented in this encounter Plan of Treatment Upcoming Encounters Date Type Specialty Care Team Description 02/01/2022 Comprehensive Visit Family Medicine Cynthia Rockwell A PRN, C.N.P. [address], [place] [phone] (Wo rk) documented as of this encounter Visit Diagnoses Not on filedocumented in this encounter Care Teams Leaf Tinner Relationship Specialty Start Date End Date Cynthia Rockwell APRN, C.N.P. PCP - General 08/16/16 [address], [place] [address] documented as of this encounter
--- OUTSIDE RECORDS SUMMARY | 2022-01-21 23:20 | XMS_ITS | Encounter Summary ---
:1955 Author Organization [facility] Address [address] [place] [address] Care Team Providers Name Role Phone Cynthia Rockwell APRN, C.N.P. Primary Care Provider [phone] Reason for Visit Reason Comments Med Refill Encounter Details Date Type Department Care Team Description 12/21/2020 Refill Department of Family Medicine, Christi Rockwell APRN, Med Refill [facility], in C.N.P. [place], [place] [address] [place] [address] [place] [address] [phone] Social History Tobacco Use Types Packs/Day Years [...] or relatives? How often do you attend religion or 1 to 4 times per year 09/01 mormonism services? Do you belong to any clubs or No 09/18/2018 organizations such as religion groups, unions, fraternal or athletic groups, or [...] Medicine Cynthia Rockwell A PRN, C.N.P. [address] [place], [place] [phone] (Wo rk) documented as of this encounter Visit Diagnoses Not on filedocumented in this encounter Care Teams Seafood Specialist Relationship Specialty Start Date End Date Cynthia Rockwell APRN, C.N.P. PCP - General 08/16/160 [address], [place] [address] documented as of this encounter
--- OUTSIDE RECORDS SUMMARY | 2022-01-21 23:20 | XMS_ITS | Encounter Summary ---
:1955 Author Organization [facility] Address [address] [place] [address] Care Team Providers Name Role Phone Cynthia Rockwell APRN, C.N.P. Primary Care Provider [phone] Encounter Details Date Type Department Care Team Description 01/12/2021 Orders Only Department of Family Cynthia Rockwell, Hyp othyroidism Acquired Medicine, [place] [facility], in [place], [address] [place], [place] [address] [address] [place], [place] [phone] [address] (Work) [phone] Social History Tobacco Use Types Packs/Day Years [...] 1 to 4 times per year 09/01 mormon services? Do you belong to any clubs [...] Cynthia Rockwell A PRN, C.N.P. [address] [place], [place] [phone] (Wo rk) documented as of this encounter Visit Diagnoses Diagnosis Hypothyroidism Acquired Finnish Language Deficit - Primary General Medical Examination Adult Hypothyroidism Acquired Arthritis Rheumatoid (HCC) High Risk Medication History Of Falling Encounter For COVID-19 Vaccine Immunizat ion Need Vaccine Immunization Influenza Encounter For Other Screening For Malign ant Neoplasm Of Breast documented in this encounter Care Teams Salesperson Meats Relationship Specialty Start Date End Date Cynthia Rockwell APRN, C.N.P. PCP - General 08/16/16 [address], [place] [address] documented as of this encounter
--- OUTSIDE RECORDS SUMMARY | 2022-01-21 23:20 | XMS_ITS | Encounter Summary ---
:1955 Author Organization [facility] Address [address] [place] [address] Care Team Providers Name Role Phone Cynthia Rockwell APRN, C.N.P. Primary Care Provider [phone] Reason for Visit Reason Comments Med Refill Traveling to [facility] and will be gone for 3 months. Wants to be updated on shots. Encounter Details Date Type Department Care Team Description 05/15/2021 Office Visit Department of Family Celsa Mcgrath Arthri tis Rheumatoid ([facility]) (Primary Dx); Medicine, [place] SOHAN, C.N.P. Hypothyr oidism Acquired; Clinic, in [place], Defici enc Vitamin D; [place] [facility] Travel And Immuni zation; [facility] [address] Immunodeficiency Due To Drug s ([facility]) [facility] [place] [address] Social History Tobacco Use Types [...] 16 05/15/2021 10:07 AM CDT Oxygen Saturation - - Inhaled Oxygen Concentration - - Weight 79.2 kg (174 lb 7.9 oz) 05/15/2021 10:07 AM CDT Height 155 cm (5' 1.02) 05/15/2021 10:07 AM CDT Body Mass Index 32.94 05/15/2021 10:07 AM CDT documented in this encounter Progress Notes Celsa Mcgrath, SOHAN, C.N.P. - 05/15/2021 10:00 AM CDT SUBJECTIVE CHIEF COMPLAINT/REASON FOR VISIT Chief Complaint Patient presents with ??? Med Refill Traveling to [facility] and will be gone for 3 months. Wants to be updated on shots. HISTORY OF PRESENT ILLNESS Althea Arias is a 66 y.o. female who presents to the clinic today for medication refills and travel recommendations. Patient's son serves as the brim curler today. Patient declines a professional brim curler. Althea is planning to travel to [facility] next week for 3-4 months. Althea has a past medic al history significant for rheumatoid arthritis, immunosuppression, latent TB, fibromyalgia, and hypothyroidism. She follows with Rheumatology annually and was recently seen by Rheumatology in March.At that visit it was documented that the patient had very clear progression of her rheumatoid arthritis. Patient is currently managed on leflunomide 20 mg daily, methotrexate 20 mg once weekly, folic acid supplementation, and prednisone 5 mg daily. The patient gets labs and medication refill every three months. The patient will be due for labs during the time she is in [place]. The patient did share her travel plans with Rheumatology. Remicade infusions were postponed due to the increased risk of immunosuppression. Patient is requesting medication refills for all of her medications today. She is also interested in travel recommendations for [place]. Patient has received three COVID-19 vaccines. Shewill not be due for the booster until October. CURRENT MEDICATIONS I have reviewed the current medications list. ALLERGIES/CONTRAINDICATIONS No Known Allergies REVIEW OF SYSTEMS Constitutional: Positive for fatigue. Musculoskeletal: Positive for arthralgias, pain or stiffness in the joints and joint swelling. All other systems reviewed and are negative. OBJECTIVE VITAL SIGNS BP 100/69 (BP Location: Right arm, Patient Position: Sitting, Cuff Size: Large) Comment: average of 3 Pulse 83 Temp 36 ??C (Temporal) Resp 16 Ht 155 cm Wt 79.2 kg BMI 32.94 kg/m?? PHYSICAL EXAMINATION General: Alert 66-year-old female in no acute distress, nontoxic in appearance, well dressed, normalhygiene. HEENT: Head normocephalic, atraumatic, pupils equal round react to light, EOM intact. Neck: Supple. No lymphadenopathy. Cardiovascular: Regular rate, rhythm, S1, S2. No murmur. No edema. Respiratory: Lungs clear to auscultation in the anterior and posterior chest, easy Respirations. Nonlabored breathing. Neurologic: Alert, oriented, steady gait. Extremities: Warm, pink, dry. Rheumatoid deformities visible in the hand along with rheumatoid nodules. DIAGNOSTICS: No results found for this or any previous visit (from the past 24 hour(s)). No results found. 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 The patient understand she will be overdue for lab work when she returns to the [facility]. She will follow-up with Rheumatology and lab work as soon as she gets back to the [facility]. Patient understands she is at increased risk for disease with her immuno- suppressed state. - diclofenac sodium (Voltaren) 1 % gel; Apply 2 g topically 4 (four) times a day. 4 g applied LE at 4 times daily; 2 g applied to UE 4 times daily; MAX 8 g/day to single joint of UE, 16 g/day to any single joint of LE, 32 g/day total., Starting Sat05/15/2021, Normal - methotrexate 2.5 mg tablet; Take 8 tablets (20 mg total) by mouth once a week. Remember labs every3 months., Starting Sat05/15/2021, Normal - predniSONE (DELTASONE) 5 mg tablet; Take 1 tablet (5 mg total) by mouth daily., Starting Sat05/15/2021, Normal - leflunomide (ARAVA) 20 mg tablet; Take 1 tablet (20 mg total) by mouth daily. Remember labs every 3 months., Starting Sat05/15/2021, Normal #2 Hypothyroidism Acquired Patient is due for a follow-up TSH. This is ordered today. Levothyroxine will be adjusted based on lab work and a prescription refill will be sent to the pharmacy. - S-TSH (Thyroid-Stimulating Hormone - Sensitive); Future; Expected date: 05/15/2021 #3 Deficiency Vitamin D - cholecalciferol (VITAMIN D3) 50 mcg (2,000 Unit) tablet; Take 1 tablet (2,000 Units total) by mouth daily., Starting Sat05/15/2021, Normal #4 Counseling Travel And Immunization Recommend follow-up with the [facility] nurse practitioner. - docusate sodium (COLACE) 100 mg capsule; Take 1 capsule (100 mg total) by mouth daily., Starting Sat05/15/2021, Normal - Family Medicine office visit (clinic); Future; Expected date: 05/15/2021 All questions were answered. Patient verbalizing understanding and is in agreement with the above outlined plan. documented in this encounter Plan of Treatment Upcoming Encounters Date Type Specialty Care Team Description 02/01/2022 Comprehensive Visit Family Medicine Cynthia Rockwell A PRN, C.N.P. [address] [phone] (Wo rk) documented as of this encounter Results (ABNORMAL) S-TSH (Thyroid-Stimulating Hormone - Sensitive) (05/15/2021 10:54 AM CDT) P athologist Signature TSH, Sensitive 7.0 (H) 0.3 - 4.2 05/15/2021 OW[place] mIU/L 1:19 PM CDT Specimen Anatomical Collection Method Collection Time Receive d Time (Source) Location / / Volume Laterality Blood (Blood, 05/15/2021 10:54 05/15/2021 Venous) AM CDT 12:47 PM CDT Celsa Mcgrath APRN, C.N.P. LAB BLOOD ADD-ON Performing Organization Address City/State/ZIP Code Phon e Number [facility]- [address] [place] [address] [place] [address] System in [place] [address] [facility] documented in this encounter Visit Diagnoses Diagnosis Arthritis Rheumatoid (HCC) - Primary Hypothyroidism Acquired Deficiency Vitamin D Counseling Travel And Immunization Immunodeficiency Due To Drugs (HCC) Swedish Language Deficit - Primary General Medical Examination Adult Hypothyroidism Acquired Arthritis Rheumatoid (HCC) High Risk Medication History Of Falling Encounter For COVID-19 Vaccine Immunizat ion Need Vaccine Immunization Influenza Encounter For Other Screening For Malign ant Neoplasm Of Breast documented in this encounter Care Teams Legislators Relationship Specialty Start Date End Date Cynthia Rockwell APRN, C.N.P. PCP - General 08/16/[address] [place] [address] documented as of this encounter
--- OUTSIDE RECORDS SUMMARY | 2022-01-21 23:20 | XMS_ITS | Encounter Summary ---
:1955 Author Organization [facility] Address [address] [place] [address] Care Team Providers Name Role Phone Cynthia Rockwell APRN, C.N.P. Primary Care Provider Reason for Visit Reason Comments Med Refill Encounter Details Date Type Department Care Team Description 12/21/2020 Refill Division of Rheumatology in [place] Arana APRN, Med Refill [place], [place] C.N.P. [address] [facility] [address] [place] [address] [place] [address] [phone] (Wo rk) Social History Tobacco Use Types [...] or relatives? How often do you attend baptism or 1 to 4 times per year 09/01 jain services? Do you belong to any clubs or No 09/18/2018 organizations such as baptism groups, unions, fraternal or athletic groups, or [...] this encounter Miscellaneous Notes Telephone Encounter - Arnaldo Dixon R.N. - 12/23/2020 10:27 AM CDT Will pend 30-day supply of Methotrexate to provider. Patient's last labs were on 09/22/20 and they did not include an AST. Has appointment with PCP in [place] on 01/12, pended lab order to have completed at that appointment. documented in this encounter Plan of Treatment Upcoming Encounters Date Type Specialty Care Team Description 02/01/2022 Comprehensive Visit Family Medicine Cynthia Rockwell A PRN, C.N.P. [address] [place] [phone] (Wo rk) documented as of this encounter Results Creatinine with Estimated GFR (01/12/2021 8:37 AM ROLLER REPAIRER) P athologist Signature Creatinine 0.64 0.59 - 01/12/2021 [place] 1.04 mg/dL 11:15 AM ROLLER REPAIRER eGFR-Black/Afric >90 >=60 01/12/2021 [place] an Malagasy mL/min/BSA 11:15 AM ROLLER REPAIRER Comment: ----ADDITIONAL INFORMATION---- Estimated GFR calculated using the 2009 CKD_EPI creatinine equation. eGFR Non-Black/ >90 >=60 mL/min/BSA 01/12/2021 11:15 AM ROLLER REPAIRER [place] Comment: ----ADDITIONAL INFORMATION---- Estimated GFR calculated using the 2009 CKD_EPI creatinine equation. Specimen Anatomical Collection Method Collection Time Receive d Time (Source) Location / / Volume Laterality Blood (Blood, 01/12/2021 8:37 AM 01/13/20 21 Venous) ROLLER REPAIRER 10:20 AM ROLLER REPAIRER [place] Arana APRN, C.N.P. LAB BLOOD ADD-ON Performing Organization Address City/State/ZIP Code Phon e Number [facility]- [address] [place] [address] [place] [address] System in [place] [address] [facility] AST (Aspartate Aminotransferase) (01/12/2021 8:37 AM ROLLER REPAIRER) [facility] Method Time Signature Aspartate 18 8 - 43 01/12/2021 [place] Aminotransferase U/L 11:15 AM ROLLER REPAIRER (AST), P Specimen Anatomical Collection Method Collection Time Receive d Time (Source) Location / / Volume Laterality Blood (Blood, 01/12/2021 8:37 AM 01/13/20 21 Venous) ROLLER REPAIRER 10:20 AM ROLLER REPAIRER [place] Arana APRN C.N.P. LAB BLOOD ADD-ON Performing Organization Address City/State/ZIP Code Phon e Number [facility]- [address] [place] [address] [place] [address] System in [place] [address] [facility] (ABNORMAL) CBC with Differential, Blood (01/12/2021 8:37 AM ROLLER REPAIRER) [facility] Method Time Signature Hemoglobin 12.7 11.6 - 01/12/2021 FB60 15.0 g/dL 9:01 AM ROLLER REPAIRER Hematocrit 38.9 35.5 - 01/12/2021 FB60 44.9 % 9:01 AM ROLLER REPAIRER Erythrocytes 4.38 3.92 - 01/12/2021 FB60 5.13 9:01 AM ROLLER REPAIRER x10(12)/L MCV 88.8 78.2 - 01/12/2021 FB60 97.9 fL 9:01 AM ROLLER REPAIRER RBC Distrib Width 14.7 12.2 - 01/12/2021 FB60 16.1 % 9:01 AM ROLLER REPAIRER Platelet Count 215 157 - 371 01/12/2021 FB60 x10(9)/L 9:01 AM ROLLER REPAIRER Leukocytes 3.3 (L) 3.4 - 9.6 01/12/2021 FB60 x10(9)/L 9:01 AM ROLLER REPAIRER Neutrophils 1.53 (L) 1.56 - 01/12/2021 FB60 6.45 9:01 AM ROLLER REPAIRER x10(9)/L Lymphocytes 1.17 0.95 - 01/12/2021 FB60 3.07 9:01 AM ROLLER REPAIRER x10(9)/L Monocytes 0.46 0.26 - 01/12/2021 FB60 0.81 9:01 AM ROLLER REPAIRER x10(9)/L Eosinophils 0.11 0.03 - 01/12/2021 FB60 0.48 9:01 AM ROLLER REPAIRER x10(9)/L Basophils 0.01 0.01 - 01/12/2021 FB60 0.08 9:01 AM ROLLER REPAIRER x10(9)/L Specimen Anatomical Collection Method Collection Time Receive d Time (Source) Location / / Volume Laterality Blood (Blood, 01/12/2021 8:37 AM 01/13/20 8:38 Venous) ROLLER REPAIRER AM ROLLER REPAIRER [place] Arana APRN, C.N.P. LAB BLOOD ADD-ON Performing Organization Address City/State/ZIP Code Phon e Number [address] [place] [address] [facility] [address] [place] [address] System in [address] documented in this encounter Visit Diagnoses Diagnosis Arthritis Rheumatoid (HCC) Hebrew Language Deficit - Primary General Medical Examination Adult Hypothyroidism Acquired Arthritis Rheumatoid (HCC) High Risk Medication History Of Falling Encounter For COVID-19 Vaccine Immunizat ion Need Vaccine Immunization Influenza Encounter For Other Screening For Malign ant Neoplasm Of Breast documented in this encounter Care Teams Marketing Account Executive Relationship Specialty Start Date End Date Cynthia Rockwell APRN, C.N.P. PCP - General 08/16/16 [address] [place] [address] documented as of this encounter
--- OUTSIDE RECORDS SUMMARY | 2022-01-21 23:20 | XMS_ITS | Encounter Summary ---
:1955 Author Organization [facility] Address [address] [place] [address] Care Team Providers Name Role Phone Cynthia Rockwell APRN, C.N.P. Primary Care Provider [phone] Encounter Details Date Type Department Care Team Description 01/13/2021 Orders Only Department of Family Cynthia Rockwell Scr eening Cancer Colon Medicine, [place] [facility], [facility], in [place], [address] [address] [place], [place] [phone] [address] (Work) [phone] Social History Tobacco Use Types Packs/Day Years [...] or relatives? How often do you attend advent or 1 to 4 times per year 09/01 congregational services? Do you belong to any clubs or No 09/18/2018 organizations such as advent groups, unions, fraternal or athletic groups, or [...] Cynthia Rockwell A PRN, C.N.P. [address] [place], [place] [phone] (Wo rk) documented as of this encounter Visit Diagnoses Diagnosis Screening Cancer Colon Lao Language Deficit - Primary General Medical Examination Adult Hypothyroidism Acquired Arthritis Rheumatoid (HCC) High Risk Medication History Of Falling Encounter For COVID-19 Vaccine Immunizat ion Need Vaccine Immunization Influenza Encounter For Other Screening For Malign ant Neoplasm Of Breast documented in this encounter Care Teams Perianesthesia Rn Relationship Specialty Start Date End Date Cynthia Rockwell APRN, C.N.P. PCP - General 08/16/16 [address], [place] [address] documented as of this encounter
--- OUTSIDE RECORDS SUMMARY | 2022-01-21 23:20 | XMS_ITS | Encounter Summary ---
:1955 Author Organization [facility] Address [address] [place] [id number] Care Team Providers Name Role Phone Cynthia Rockwell APRN, C.N.P. Primary Care Provider [phone] Reason for Referral Outpatient (Routine) - Authorized Specialty Diagnoses / Procedures Referred By Contact Refer red To Contact Rheumatology Perry Arana APR N, C.N.P. [address] [phone] Referral ID Status Reason Start Date Expiration Date Visits V isits Requested Authorized [id number] Authorized 03/22/2021 03/22/2022 1 1 EPOINT DESIGNER DEVELOPER Reason for Visit Outpatient (Routine) - Closed Specialty Diagnoses / Procedures Referred By Contact Refer red To Contact Rheumatology Perry Arana APR N, C.N.P. [address] [phone] Referral ID Status Reason Start Date Expiration Date Visits Requ ested Visits Authorized [id number] Closed 03/10/2020 03/10/2021 1 1 Encounter Details Date Type Department Care Team Description 03/22/2021 Office Visit Division of Perry Arana, Arthritis R heumatoid (HCC) (Primary Dx); Rheumatology in [place] Nodule Rheumatoid (HCC); [place], [place] 200 [facility] Tuberculosis Latent; [address] [place] [address] [place] [phone] Social History Tobacco Use Types Packs/Day Years [...] or relatives? How often do you attend alevism or 1 to 4 times per year 09/01 mormonism services? Do you belong to any clubs or No 09/18/2018 organizations such as alevism groups, unions, fraternal or athletic groups, or [...] on file documented as of this encounter Progress Notes Perry Arana, [place], C.N.P. - 03/22/2021 2:45 PM CST SUBJECTIVE CHIEF COMPLAINT / REASON FOR VISIT Althea Arias is a 66 y.o. female who presents for follow up of rheumatoid arthritis. The entirety of this visit was with the assistance of a [place] trained interpreter translator. HISTORY OF PRESENT ILLNESS This is a patient who was previously followed by Dr. Alvarez, Dr. Monzon, Patrice eVlez, and myself. She has had active rheumatoid arthritis. She has been on prednisone, methotrexate, and more recently was prescribed Arava on behalf of Patrice Velez PA-C who saw her in my absence. Hydroxychloroquine was ultimately discontinued due to lapse in eye exams. She has not been on biologics predominantly due to history of tuberculosis. Reportedly, she has been treated for this per her initial consult note in June 2009 though we do not have the paperwork on record. She was then seen in consultation by Dr. Castillo in March 2017. It was not felt that her inflammatory arthritis was active at that time she wasgiven a diagnosis of fibromyalgia. Today she reports widespread pain from head to toe. She reports certain areas being much more problematic including arms, hands, and left side. She continues medications as prescribed. Prednisone currently one 5 mg tablet daily. She continues to have nodules in reports that these continue to be problematic. She has noted more changes to her hands over the past year with them drifting laterally. She notes more difficulty with using her hands. She has not had any skin rashes. She does have a bit of a cough. She did have COVID and subsequently got COVID vaccines, two doses. The pain she experiences continues to be quite intense. She was seen in emergency department in end of February due to a severe episode of pain. Previous Reports Reviewed:historical medical records, lab reports and office notes The following portions of the patient's history were reviewed and updated as appropriate: allergies,current medications, medical history and problem list. REVIEW OF SYSTEMS Pertinent positives and negatives as documented in the above history of present illness. REVIEW OF SYSTEMS PHYSICAL EXAM Vitals reviewed. Constitutional Appearance: She is well-developed. Eyes Pupils: Pupils are equal, round, and reactive to light. Cardiovascular Rate and Rhythm: Normal rate and regular rhythm. Pulmonary Effort: Pulmonary effort is normal. Breath sounds: Normal breath sounds. Abdominal Palpations: Abdomen is soft. Tenderness: There is no abdominal tenderness. Musculoskeletal Cervical back: Normal range of motion. Comments: Widespread tenderness in joints and muscles today. Most tender over the shoulders. Rheumatoid deformities much more noticeable on clinical exam today. See joint exam for joint evaluations she does have ulnar drift bilaterally. She does have changes of osteoarthritis in the hands. Knees are c ool without effusion. Some fullness over the forefoot bilaterally with associated tenderness. Skin General: Skin is warm and dry. Findings: No rash. Comments: She continues to have nodules present in the hands. These have not changed in size. Neurological Mental Status: She is alert and oriented to person, place, and time. Lab: Labs completed prior to visit were reviewed. I do not have inflammatory markers to review today. Her inflammatory markers from January were reviewed. 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 She does have very clear progression of rheumatoid arthritis related deformities present in her hands today. I had sent a eConsult to Infectious Disease regarding past treatment of her TB which included nine months of isoniazid. Based on current information this suggest a potential of 60-90% protection of a latent TB infection. The patient, her son, and I discussed with the assistance of the interpreter translator the very real risk that the TB could be activated. She denies having spent any prolonged periods of time in [place] but is contemplating returning there for number of months in the near future. We discussed that should she return after initiating Remicade there is a high chance that she could contract TB, malaria, or any other infectious disease and not do as well with having had recent Remicade infusions. She and her son verbalizedunderstanding of this. It is also possible if she travels to [place] that upon return we would need to complete another nine months of therapy with isoniazid for potential exposure to TB while she was in [place]. We discussed additional side effects risks and benefits of Remicade outside of the infection risk. These were discussed in detail through the interpreter translator. She was also given written information. She indicates that her children are able to read in Vietnamese and translates some of that additionalinformation for her. Should she have further questions we could certainly answer those via the interpreter translator services prior to the infusions. I will need to check hepatitis status and will get a chest x-ray before initiating therapy. She will continue with leflunomide 20 mg daily, methotrexate 20 mg once weekly, folic acid supplementation, and prednisone 5 mg daily. She does have side effects to include increased dizziness with increased doses of prednisone so this has generally been avoided in recentyears. She should continue with adequate calcium and vitamin-D supplementation. #4 Fibromyalgia We discussed that her pain is multifactorial. I discussed with her that there are not great treatments for fibromyalgia at this time. She may benefit from seeing a pain specialist if she does not feel that she currently has the tools needed to manage her current pain levels. I discussed the rationale for avoidance of long-term use pain medication or opioids. She would like to try warmer climates to see if this would help with some of her pain. We discussed logistically how this would have implications for her continued care here as well as ongoing infusions if she does move forward with the Remicade. Should she decide to pursue pain specialist I recommended discussing options in her area with her primary care team. She has had COVID vaccines. Once hepatitis screen and chest x-ray have been resulted will send through infusion for Remicade initial protocol at 3 milligrams/kilogram to be completed in [place]. PATIENT EDUCATION Ready to learn, no apparent learning barriers were identified; learning preferences include listening. Explained diagnosis and treatment plan; patient expressed understanding of the content. EPOINT DESIGNER DEVELOPER documented in this encounter Miscellaneous Notes Addendum Note - Perry Arana APRN, C.N.P. - 03/22/2021 2:45 PM SHAREPOINT DESIGNER DEVELOPER Addended by: PERRY ARANA on: 03/24/2021 02:46 PM Modules accepted: Orders EPOINT DESIGNER DEVELOPER documented in this encounter Plan of Treatment Upcoming Encounters Date Type Specialty Care Team Description 02/01/2022 Comprehensive Visit Family Medicine Cynthia Rockwell A PRN, C.N.P. [address] [phone] (Wo rk) Scheduled Orders Name Type Priority Associated Diagnoses Order S chedule CBC with Differential, Lab Routine Arthritis Rheumato id Expected: 09/19/2021 Blood (HCC) (Approximate), Nodule Rheumatoi d (HCC) Expires: 03/22/2022 Tuberculosis Latent Sedimentation Rate Lab Routine Arthritis Rheumatoid E xpected: 09/19/2021 (HCC) (Approximate), Nodule Rheumatoi d (HCC) Expires: 03/22/2022 Tuberculosis Latent CRP (C-Reactive Protein) Lab Routine Arthritis Rheuma toid Expected: 09/19/2021 (HCC) (Approximate), Nodule Rheumatoi d (HCC) Expires: 03/22/2022 Tuberculosis Latent AST (Aspartate Lab Routine Arthritis Rheumatoid Expec yaima: 09/19/2021 Aminotransferase) (HCC) (Approximate), Nodule Rheumatoi d (HCC) Expires: 03/22/2022 Tuberculosis Latent Creatinine with Estimated Lab Routine Arthritis Rheum atoid Expected: 09/19/2021 GFR (HCC) (Approximate), Nodule Rheumatoi d (HCC) Expires: 03/22/2022 Tuberculosis Latent Scheduled Referrals Name Type Priority Associated Order Schedule Diagnoses Rheumatology office Outpatient Referral Routine E xpected: visit (clinic) 09/19/2021 (Approximate), Expires: 06/20/2022 documented as of this encounter Results HCV Ab w/Reflex to HCV PCR, Serum (03/22/2021 4:39 PM SHAREPOINT DESIGNER DEVELOPER) [facility] [place] HCV Ab, S Negative Negative 03/22/2021 [facility] 9:57 PM SHAREPOINT DESIGNER DEVELOPER Comment: Amxmur-ic-itwdns ratio is <1.00 . Specimen Anatomical Collection Method Collection Time Receive d Time (Source) Location / / Volume Laterality Blood (Blood, 03/22/2021 4:39 PM 03/22/19 22 8:15 Venous) SHAREPOINT DESIGNER DEVELOPER PM SHAREPOINT DESIGNER DEVELOPER Perry Arana APRN, C.N.P. LAB MICROBIOLOGY - BLOOD O RDERABLES Performing Organization Address City/[facility]/ZIP Code Phon e Number [facility] [address] [place] [facility] [address] [facility] [place] [address] Laboratory Medicine and Pathology [address] [place] [address] Dr. SANTOS HBc Total Ab, Serum (03/22/2021 4:39 PM SHAREPOINT DESIGNER DEVELOPER) [facility] HBc Total Ab, Negative Negative 03/22/2021 [facility] S 9:59 PM SHAREPOINT DESIGNER DEVELOPER Specimen Anatomical Collection Method Collection Time Receive d Time (Source) Location / / Volume Laterality Blood (Blood, 03/22/2021 4:39 PM 03/22/19 22 8:15 Venous) SHAREPOINT DESIGNER DEVELOPER PM SHAREPOINT DESIGNER DEVELOPER Perry Arana APRN, C.N.P. LAB MICROBIOLOGY - BLOOD O RDERABLES Performing Organization Address City/State/ZIP Code Phon e Number [facility] [address] TOM [place] [address] [facility] [place] [address] Laboratory Medicine and Pathology [address] [place] [address] Dr. SANTOS HBs Antibody, Serum (03/22/2021 4:39 PM SHAREPOINT DESIGNER DEVELOPER) athologist [facility] [place] HBs Antibody, Positive 03/22/2021 [facility] S 10:03 PM SHAREPOINT DESIGNER DEVELOPER Comment: Patient is considered to be immune to in fection with HBV. ----REFERENCE VALUE---- Unvaccinated: Negative Vaccinated: Positive HBs Antibody, Quantitative, S 1000 mIU/mL 03/22/2021 10:03 PM SHAREPOINT DESIGNER DEVELOPER [facility] Comment: ----REFERENCE VALUE---- Unvaccinated: <5.0 Vaccinated: >=12.0 Specimen Anatomical Collection Method Collection Time Receive d Time (Source) Location / / Volume Laterality Blood (Blood, 03/22/2021 4:39 PM 03/22/19 8:15 Venous) SHAREPOINT DESIGNER DEVELOPER PM SHAREPOINT DESIGNER DEVELOPER Perry Arana APRN, C.N.P. LAB MICROBIOLOGY - BLOOD O RDRIVERA Performing Organization Address City/[facility]/ZIP Code Phon e Number [facility] [address] S[place] [address] [facility] [place] [address] Laboratory Medicine and Pathology [address] [place] [address] Dr. SANTOS Hepatitis B Surface Antigen (03/22/2021 4:39 PM SHAREPOINT DESIGNER DEVELOPER) athologist Signature HBs Antigen, S Negative Negative 03/22/2021 [facility] 9:40 PM SHAREPOINT DESIGNER DEVELOPER Specimen Anatomical Collection Method Collection Time Receive d Time (Source) Location / / Volume Laterality Blood (Blood, 03/22/2021 4:39 PM 03/22/19 22 8:15 Venous) SHAREPOINT DESIGNER DEVELOPER PM SHAREPOINT DESIGNER DEVELOPER Perry Arana APRN C.N.P. LAB MICROBIOLOGY - BLOOD O FARZAD Performing Organization Address City/[facility]/ZIP Code Phon e Number [facility] [address] [place] Allen[address] [place] [address] Laboratory Medicine and Pathology [address] [place] [address] Dr. SANTOS DX Chest AP or PA and Lateral 2 Views (03/22/2021 4:07 PM SHAREPOINT DESIGNER DEVELOPER) Anatomical Region Laterality Modality Chest, Thoracic RST LOS, Thoracic ARZ LOS, Thoracic N/A Digital Radiography FLA LOS Specimen (Source) Anatomical Collection Method Collection Time Re ceived Time Location / / Volume Laterality 03/22/2021 4:17 PM SHAREPOINT DESIGNER DEVELOPER Impressions 03/22/2021 4:19 PM SHAREPOINT DESIGNER DEVELOPER Focal density projecting over the posterior left [...] active tuberculous infection. Narrative 03/22/2021 4:19 PM SHAREPOINT DESIGNER DEVELOPER EXAM: ??DX CHEST AP OR PA AND LATERAL 2 VIEWS Procedure Note Papi Perez M.D., Ph.D. - 03/22/2021 EXAM: DX CHEST AP OR PA AND LATERAL 2 EWS IMPRESSION: Focal density projecting over the unix architect ior left lung base has enlarged slightly [...] Diagnoses Diagnosis Arthritis Rheumatoid (HCC) - Primary Nodule Rheumatoid (HCC) Tuberculosis Latent Fibromyalgia Arthritis Rheumatoid (HCC) Nodule Rheumatoid (HCC) Vietnamese Language Deficit - Primary General Medical Examination Adult Hypothyroidism Acquired Arthritis Rheumatoid (HCC) High Risk Medication History Of Falling Encounter For COVID-19 Vaccine Immunizat ion Need Vaccine Immunization Influenza Encounter For Other Screening For Malign ant Neoplasm Of Breast documented in this encounter Care Teams Food Mobile Driver Relationship Specialty Start Date End Date Cynthia Rockwell APRN, C.N.P. PCP - General 08/16/16 [address] [phone] documented as of this encounter
--- OUTSIDE RECORDS SUMMARY | 2022-01-21 23:20 | XMS_ITS | Encounter Summary ---
:1955 Author Organization [facility] Address [address] [place] [address] Care Team Providers Name Role Phone Cynthia Rockwell APRN, C.N.P. Primary Care Provider [phone] Reason for Referral Outpatient (Routine) - Closed Specialty Diagnoses / Procedures Referred By Contact Refer red To Contact Diagnoses Screening Mammogram Breast Cancer Cynthia Rockwell APRN, [facility] Region Procedures BI Breast Screening Bilateral with Tomosynthesis C.N.P. [address] [phone] Referral ID Status Reason Start Date Expiration Date Visits Requ ested Visits Authorized [id number] Closed 11/08/2020 11/08/2021 1 1 PROCESSOR Reason for Visit Outpatient (Routine) - Closed Specialty Diagnoses / Procedures Referred By Contact Refer red To Contact Diagnoses Screening Mammogram Breast Cancer Cynthia Rockwell APRN, [facility] Region Procedures BI Breast Screening Bilateral with Tomosynthesis C.N.P. [address] [place] [phone] Referral ID Status Reason Start Date Expiration Date Visits Requ ested Visits Authorized [id number] Closed 11/08/2020 11/08/2021 1 1 Encounter Details Date Type Department Care Team Description 01/17/2021 Hospital Encounter Department of Cynthia Rockwell Mammogram Radiology dora Taylor APRN C.N.P. Breast Cancer [place], [place] [address] [place] [phone] Social History Tobacco Use Types Packs/Day Years [...] or relatives? How often do you attend taoist or 1 to 4 times per year 09/01 mormon services? Do you belong to any clubs or No 09/18/2018 organizations such as taoist groups, unions, fraternal or athletic groups, or [...] (eight) Arthritis Rheumatoid hours as needed for ([facility]) pain or fever. ammonium lactate APPLY CREAM 280 g 1 12/21/2020 022 (AMLACTIN) 12 % cream TOPICALLY TO AFFECTED AREA ONCE DAILY cholecalciferol (VITAMIN Take 1 tablet 90 tablet 3 04/20/19 21 05/15/2021 D3) 50 mcg (2,000 Unit) (2,000 Units total) tabletIndications: by mouth daily. Arthritis Rheumatoid ([facility]) diclofenac sodium Apply 2 g topically 1 [...] mcg total) Arthritis Rheumatoid by mouth daily. ([facility]) leflunomide (ARAVA) 20 mg Take 1 tablet by 30 tablet 0 03/202001/20/2021 tabletIndications: mouth once daily Arthritis Rheumatoid ([facility]) levothyroxine (SYNTHROID, Take 1 tablet (88 90 tablet 3 01/202105/15/2021 LEVOTHROID) 88 mcg mcg total) by mouth tabletIndications: daily. Hypothyroidism Acquired meclizine (ANTIVERT) 25 Take 1 tablet (25 30 tablet 1 04/2001/23/2021 mg tabletIndications: mg total) by mouth Dizziness daily as needed for dizziness. methotrexate 2.5 mg TAKE 8 TABLETS BY 32 tablet 0 1 01/20/2021 tabletIndications: MOUTH ONCE A WEEK Arthritis Rheumatoid ([facility]) omeprazole (PriLOSEC) 20 TAKE 1 CAPSULE BY 90 capsule 3 11/0201/20/[address] capsule MOUTH IN THE MORNING BEFORE BREAKFAST predniSONE (DELTASONE) 5 Take 1 tablet (5 mg 90 tablet 1 05/15/2021 mg tabletIndications: total) by mouth Arthritis Rheumatoid daily. (HCC) documented as of this encounter Plan of Treatment Upcoming Encounters Date Type Specialty Care Team Description 02/01/2022 Comprehensive Visit Family Medicine Cynthia Rockwell A PRN, C.N.P. [address] [place], [place] [phone] (Wo rk) documented as of this encounter Procedures Procedure Name Priority Date/Time Associated Comments Diagnosis BI BREAST SCREENING RAD - Routine 01/17/2021 11:11 Screening Res ults for BILATERAL WITH (most inpatients AM AP PROCESSOR Mammogram Breast this procedure TOMOSYNTHESIS and all Cancer are in the outpatients) results section. documented in this encounter Results BI Breast Screening Bilateral with Tomosynthesis (01/17/2021 11:11 AM AP PROCESSOR) Anatomical Region Laterality Modality Breast, Breast Imaging RST LOS, Breast Imaging ARZ LOS, [address] st Bilateral Mammography Imaging FLA LOS Specimen (Source) Anatomical Collection Method Collection Time Re ceived Time Location / / Volume Laterality 01/17/2021 12:59 PM AP PROCESSOR Impressions 01/17/2021 1:01 PM AP PROCESSOR Negative. RECOMMENDATION: ??Annual Screening Mammo gram ASSESSMENT: ??BI-RADS: 1: Negative. Narrative 01/17/2021 1:01 PM AP PROCESSOR EXAM: ??BI BREAST SCREENING BILATERAL WITH TOMOSYNTHESIS Current study was evaluated with a Tricycleu ter Aided Detection (CAD) system. INDICATION: ??Screening mammogram. COMPARISON: ??Prior exam(s) were availab le and reviewed for comparison. DENSITY: ??a. The breast(s) are almost e ntirely fatty. FINDINGS: ??No findings of malignancy. ? ?No significant change since prior exam. Procedure Note Erik Cano M.D. - 01/17/2021Formattin g of this note might be different from the original. EXAM: BI BREAST SCREENING BILATERAL WITH TOMOSYNTHESIS Current study was evaluated with a Tricycleu [place] Aided Detection (CAD) system. INDICATION: Screening mammogram. COMPARISON: Prior exam(s) were available and reviewed for comparison. DENSITY: a. The breast(s) are almost ent irely fatty. FINDINGS: No findings of malignancy. No significant change since prior exam. IMPRESSION: Negative. RECOMMENDATION: Annual Screening Mammogr am ASSESSMENT: BI-RADS: 1: Negative. Cynthia Rockwell APRN, C.N.P. IMG BI PROCEDURES documented in this encounter Visit Diagnoses Diagnosis Screening Mammogram Breast Cancer Kiswahili Language Deficit - Primary General Medical Examination Adult Hypothyroidism Acquired Arthritis Rheumatoid (HCC) High Risk Medication History Of Falling Encounter For COVID-19 Vaccine Immunizat ion Need Vaccine Immunization Influenza Encounter For Other Screening For Malign ant Neoplasm Of Breast documented in this encounter Care Teams Lead Web Developer Relationship Specialty Start Date End Date Cynthia Rockwell APRN, C.N.P. PCP - General 08/16/16 [address] [place] [phone] documented as of this encounter
--- OUTSIDE RECORDS SUMMARY | 2022-01-21 23:20 | XMS_ITS | Encounter Summary ---
:1955 Author Organization [facility] Address [address] [place] [address] Care Team Providers Name Role Phone Cynthia Rockwell APRN, C.N.P. Primary Care Provider [phone] Encounter Details Date Type Department Care Team Description 03/22/2021 Hospital Encounter Department of Perry Arana is Rheumatoid (HCC); Laboratory Medicine RSOHAN, C.N .P. Nodule Rheumatoid (HCC) and Pathology, [address] [place] [address], in [place], [place] [address] [place] [address] [place], [place] (Work) [address] [phone] Social History Tobacco Use Types Packs/Day Years [...] or relatives? How often do you attend christian or 1 to 4 times per year 09/01 church services? Do you belong to any clubs or No 09/18/2018 organizations such as christian groups, unions, fraternal or athletic groups, or [...] total) by mouth Arthritis Rheumatoid daily. Remember ([facility]) labs every 3 months. levothyroxine (SYNTHROID, Take 1 tablet (88 90 tablet 3 01/202105/15/2021 LEVOTHROID) 88 mcg mcg total) by mouth tabletIndications: daily. Hypothyroidism Acquired meclizine (ANTIVERT) 25 TAKE 1 TABLET BY 30 tablet 1 202005/17/2021 mg tabletIndications: MOUTH ONCE DAILY Dizziness NEEDED FOR DIZZINESS methotrexate 2.5 mg Take 8 tablets (20 96 tablet 0 03/22/1905/15/2021 tabletIndications: mg total) by mouth Arthritis Rheumatoid once a week. (HCC) Remember labs every 3 months. omeprazole (PriLOSEC) 20 Take 1 capsule (20 90 capsule 1 07/12/[address] capsule mg total) by mouth every morning before breakfast. predniSONE (DELTASONE) 5 Take 1 tablet (5 mg 90 tablet 1 05/15/2021 mg tabletIndications: total) by mouth Arthritis Rheumatoid daily. ([facility]) documented as of this encounter Plan of Treatment Upcoming Encounters Date Type Specialty Care Team Description 02/01/2022 Comprehensive Visit Family Medicine Cynthia Rockwell A PRN, C.N.P. [address] [place], [place] [address] (Wo rk) documented as of this encounter Procedures Procedure Name Priority Date/Time Associated Diagnosis Comme nts HCV AB W/REFLEX TO Routine 03/22/2021 4:39 PM Arthritis Rheuma toid Results for this HCV PCR, S SET UP WORKER ([facility]) procedure are in Nodule Rheumatoid the result s ([facility]) section. HBC TOTAL AB, SERUM Routine 03/22/2021 4:39 PM Arthritis Rheum atoid Results for this SET UP WORKER (HCC) procedure are in Nodule Rheumatoid the result s (HCC) section. HBS ANTIBODY, SERUM Routine 03/22/2021 4:39 PM Arthritis Rheum atoid Results for this SET UP WORKER (HCC) procedure are in Nodule Rheumatoid the result s (HCC) section. HEPATITIS B SURFACE Routine 03/22/2021 4:39 PM Arthritis Rheum atoid Results for this ANTIGEN SET UP WORKER (HCC) procedure are in Nodule Rheumatoid the result s (HCC) section. documented in this encounter Results HCV Ab w/Reflex to HCV PCR, Serum (03/22/2021 4:39 PM SET UP WORKER) athologist Signature HCV Ab, S Negative Negative 03/22/2021 [facility] 9:57 PM SET UP WORKER Comment: Jrvnxr-tv-gawdyj ratio is <1.00 . Specimen Anatomical Collection Method Collection Time Receive d Time (Source) Location / / Volume Laterality Blood (Blood, 03/22/2021 4:39 PM 03/22/19 22 8:15 Venous) SET UP WORKER PM SET UP WORKER Perry Arana APRN, C.N.P. LAB MICROBIOLOGY - BLOOD O RDERABLES Performing Organization Address City/State/ZIP Code Phon e Number [facility] [address] TOM [place] [address] SUPPORT CENTER [facility] [place] [address] Laboratory Medicine and Pathology [address] [place] [address] Dr. SANTOS HBc Total Ab, Serum (03/22/2021 4:39 PM SET UP WORKER) athologist Signature HBc Total Ab, Negative Negative 03/22/2021 [facility] S 9:59 PM SET UP WORKER Specimen Anatomical Collection Method Collection Time Receive d Time (Source) Location / / Volume Laterality Blood (Blood, 03/22/2021 4:39 PM 03/22/19 22 8:15 Venous) SET UP WORKER PM SET UP WORKER Arlette Joaquin APRN.N.[place] LAB MICROBIOLOGY - BLOOD O RDERABLES Performing Organization Address City/State/ZIP Code Phon e Number [facility] [address] [place] [address] SUPPORT CENTER [facility] [place] [address] Laboratory Medicine and Pathology [address] SANTOS HBs Antibody, Serum (03/22/2021 4:39 PM SET UP WORKER) athologist Signature HBs Antibody, Positive 03/22/2021 [facility] S 10:03 PM SET UP WORKER Comment: Patient is considered to be immune to in fection with HBV. ----REFERENCE VALUE---- Unvaccinated: Negative Vaccinated: Positive HBs Antibody, Quantitative, S 1000 mIU/mL 03/22/2021 10:03 PM SET UP WORKER [facility] Comment: ----REFERENCE VALUE---- Unvaccinated: <5.0 Vaccinated: >=12.0 Specimen Anatomical Collection Method Collection Time Receive d Time (Source) Location / / Volume Laterality Blood (Blood, 03/22/2021 4:39 PM 03/22/19 22 8:15 Venous) SET UP WORKER PM SET UP WORKER Arlette Joaquin APRN.N.P. LAB MICROBIOLOGY - BLOOD O FARZAD Performing Organization Address City/[facility]/ZIP [facility] Phon e Number [facility] [address] [place] [address] SUPPORT CENTER [facility] [place] [address] Laboratory Medicine and Pathology [address] [place] [address] Dr. SANTOS Hepatitis B Surface Antigen (03/22/2021 4:39 PM SET UP WORKER) athologist Signature HBs Antigen, S Negative Negative 03/22/2021 [facility] 9:40 PM SET UP WORKER Specimen Anatomical Collection Method Collection Time Receive d Time (Source) Location / / Volume Laterality Blood (Blood, 03/22/2021 4:39 PM 03/22/19 22 8:15 Venous) SET UP WORKER PM SET UP WORKER Arlette Joaquin APRN.N.[place] LAB MICROBIOLOGY - BLOOD O FARZAD Performing Organization Address City/[facility]/ZIP [facility] Phon e Number [facility] [address] [place] [address] SUPPORT C[place] [address] Laboratory Medicine and Pathology [facility] SANTOS documented in this encounter Visit Diagnoses Diagnosis Arthritis Rheumatoid (HCC) Nodule Rheumatoid (HCC) Citizen Of [place] Language Deficit - Primary General Medical Examination Adult Hypothyroidism Acquired Arthritis Rheumatoid (HCC) High Risk Medication History Of Falling Encounter For COVID-19 Vaccine Immunizat ion Need Vaccine Immunization Influenza Encounter For Other Screening For Malign ant Neoplasm Of Breast documented in this encounter Care Teams Desk Representative Relationship Specialty Start Date End Date Cynthia Rockwell APRN, C.N.P. PCP - General 08/16/16 [address] [place] [address] documented as of this encounter
--- OUTSIDE RECORDS SUMMARY | 2022-01-21 23:20 | XMS_ITS | Encounter Summary ---
:1955 Author Organization [facility] Address [address] [place] [address] Care Team Providers Name Role Phone Cynthia Rockwell APRN, C.N.P. Primary Care Provider Reason for Visit Reason Comments Med Refill Encounter Details Date Type Department Care Team Description 01/19/2021 Refill Division of Rheumatology in Perry Arana APRN, Med Refill [place], [place] C.N.P. [address] [facility] [address] [place] [address] [place] [address] [phone] (Wo rk) Social History Tobacco Use Types [...] 1 to 4 times per year 09/01 anabaptism services? Do you belong to any clubs [...] this encounter Miscellaneous Notes Telephone Encounter - Julisa Henderson R.N. - 01/20/2021 1:48 PM CST Prescription renewal request for folic acid, leflunomide (Arava), methotrexate, OMeprazole received from pharmacy. HISTORY OF PRESENT ILLNESS Last Rheum visit: 03/10/20 with Perry Arana APRN, CA[place] Future office visit: 03/09/21 Last monitoring labs/eye exam: 01/12/21: within protocol parameters. Prescription request matches current plan of care. Prescription request matches a current prescription in the Medication List. Exclusion criteria: None ASSESSMENT/PLAN Prescription request renewed per nursing protocol. INE SPECIALIST documented in this encounter Plan of Treatment Upcoming Encounters Date Type Specialty Care Team Description 02/01/2022 Comprehensive Visit Family Medicine Cynthia Rockwell, Kuldip EUBANKS, C.N.P. [address] [place], [place] [address] (Wo rk) documented as of this encounter Visit Diagnoses Diagnosis Arthritis Rheumatoid (HCC) Vietnamese Language Deficit - Primary General Medical Examination Adult Hypothyroidism Acquired Arthritis Rheumatoid (HCC) High Risk Medication History Of Falling Encounter For COVID-19 Vaccine Immunizat ion Need Vaccine Immunization Influenza Encounter For Other Screening For Malign ant Neoplasm Of Breast documented in this encounter Care Teams Bridal Stylist Sales Consultant Relationship Specialty Start Date End Date Cynthia Rockwell APRN, C.N.P. PCP - General 08/16/16 [address] [place] [address] documented as of this encounter
--- OUTSIDE RECORDS SUMMARY | 2022-01-21 23:20 | XMS_ITS | Encounter Summary ---
:1955 Author Organization [facility] Address [address] [place] [address] Care Team Providers Name Role Phone Cynthia Rockwell APRN, C.N.P. Primary Care Provider [phone] Reason for Visit Reason Comments Med Refill Encounter Details Date Type Department Care Team Description 01/19/2021 Refill Department of Family Medicine, Christi Rockwell APRN, Med Refill [facility], in C.N.P. [place], [place] [address] [place] [address] [place] [address] [phone] Social History Tobacco Use Types Packs/Day Years [...] 1 to 4 times per year 09/01 gnosticist services? Do you belong to any clubs [...] this encounter Miscellaneous Notes Telephone Encounter - David Samuels - 01/23/2021 7:07 AM CST Nurse review: Unable to forward request to provider; Discrepancy: Verification Required. Medication Discontinued. (Acetaminophen 500 mg tablet has been discontinued on historical med list) Meclizine has been reviewed and can be forwarded to the provider. Primary Provider: Cynthia Rockwell APRN, C.N.P. Requested Prescriptions Pending Prescriptions Disp Refills ??? acetaminophen (TYLENOL) 500 mg tablet [Pharmacy Med Name: EQ Acetaminophen 500 MG Oral Tablet] 100 tablet 0 Sig: TAKE 2 TABLETS BY MOUTH EVERY 8 HOURS NEEDED FOR MODERATE PAIN OR SCORE OF 4-6 OF 10 ??? meclizine (ANTIVERT) 25 mg tablet [Pharmacy Med Name: Meclizine HCl 25 MG Oral Tablet] 30 tablet1 Sig: TAKE 1 TABLET BY MOUTH ONCE DAILY NEEDED FOR DIZZINESS Pharmacy: [facility] EQUIPMENT OPERATOR documented in this encounter Plan of Treatment Upcoming Encounters Date Type Specialty Care Team Description 02/01/2022 Comprehensive Visit Family Medicine Cynthia Rockwell A PRN, C.N.P. [address], [place] [phone] (Wo rk) documented as of this encounter Visit Diagnoses Diagnosis Fibromyalgia Dizziness Pashto Language Deficit - Primary General Medical Examination Adult Hypothyroidism Acquired Arthritis Rheumatoid (HCC) High Risk Medication History Of Falling Encounter For COVID-19 Vaccine Immunizat ion Need Vaccine Immunization Influenza Encounter For Other Screening For Malign ant Neoplasm Of Breast documented in this encounter Care Teams Top Frame Fitter Relationship Specialty Start Date End Date Cynthia Rockwell APRN, C.N.P. PCP - General 08/16/16 [address], [place] [address] documented as of this encounter
--- OUTSIDE RECORDS SUMMARY | 2022-01-21 23:20 | XMS_ITS | Encounter Summary ---
:1955 Author Organization [facility] Address [address] [place] [address] Care Team Providers Name Role Phone Cynthia Rockwell APRN, C.N.P. Primary Care Provider [phone] Reason for Referral Outpatient (Routine) - Authorized Specialty Diagnoses / Procedures Referred By Contact Refer red To Contact Ophthalmology Juan Ramon Ivy Jr., M.D. [facility] [address] [place] [address] Referral ID Status Reason Start Date Expiration Date Visits V isits Requested Authorized [id number] Authorized 04/24/2021 04/24/2022 1 1 O MECHANIC HELPER Reason for Visit Reason Comments Eye Exam Appointment Request (Routine) - Closed Specialty Diagnoses / Procedures Referred By Contact Refer red To Contact Ophthalmology Referral ID Status Reason Start Date Expiration Date Visits Requ ested Visits Authorized [id number] Closed 02/14/2021 02/14/2022 1 1 Encounter Details Date Type Department Care Team Description 04/24/2021 Comprehensive Visit Department of Juan Ramon Ivy ed Forms Age Ophthalmology dora Jacobsen Jr., M.D. Related Cataract [place], [place] [address] Bilateral (Primary [address] Dx) [place] [phone] Social History Tobacco Use Types Packs/Day Years [...] 1 to 4 times per year 09/01 anglican services? Do you belong to any clubs [...] documented as of this encounter Progress Notes Juan Ramon Ivy Jr., M.D. - 04/24/2021 1:15 PM CST Althea Arias was seen today for Eye Exam #1 Combined Forms Age Related Cataract Bilateral #1 Still with good vision. New glasses, as I think eyestrain left eye is causing discomfort. Will also give her Voltaren left eye QID x 2 weeks. RTO 1 year or sooner if pain persists despite wearing glasses. O MECHANIC HELPER documented in this encounter Plan of Treatment Upcoming Encounters Date Type Specialty Care Team Description 02/01/2022 Comprehensive Visit Family Medicine Cynthia Rockwell, Kuldip EUBANKS, C.N.P. [address] [place] [phone] (Wo rk) Scheduled Referrals Name Type Priority Associated Order Schedule Diagnoses Ophthalmology office Outpatient Referral Routine Expected: visit (clinic) 04/24/2022 (Approximate), Expires: 07/22/2022 documented as of this encounter Visit Diagnoses Diagnosis Combined Forms Age Related Cataract Bila teral - Primary Upper Sorbian Language Deficit - Primary General Medical Examination Adult Hypothyroidism Acquired Arthritis Rheumatoid (HCC) High Risk Medication History Of Falling Encounter For COVID-19 Vaccine Immunizat ion Need Vaccine Immunization Influenza Encounter For Other Screening For Malign ant Neoplasm Of Breast documented in this encounter Care Teams Aviation Safety Inspector Relationship Specialty Start Date End Date Cynthia Rockwell, SOHAN, C.N.P. PCP - General 08/16/[address] [address] documented as of this encounter
--- OUTSIDE RECORDS SUMMARY | 2022-01-21 23:20 | XMS_ITS | Encounter Summary ---
:1955 Author Organization [facility] Address [address] [place] [address] Care Team Providers Name Role Phone Cynthia Rockwell APRN, C.N.P. Primary Care Provider [phone] Reason for Referral Specialty Diagnoses / Procedures Referred By Contact Refer red To Contact Cynthia Rockwell APR N, C.N.P. [facility] Region [address] [place] [address] Referral ID Status Reason Start Date Expiration Date Visits Requ ested Visits Authorized WORKER Encounter Details Date Type Department Care Team Description 04/12/2021 Orders Only [facility] PCP [facility] Cynthia Rockwell A PRN, C.N.P. [address] [place], [place] [phone] (Wo rk) Social History [...] 1 to 4 times per year 09/01 mu-ism services? Do you belong to any clubs [...] Cynthia Rockwell A PRN, C.N.P. [address] [place], [place] [address] (Wo rk) Scheduled Referrals Name Type Priority Associated Order Schedule Diagnoses Covid immunization Outpatient Referral Routine Ex pected: office visit Booster 022 (Approximate), Expires: 04/12/2022 documented as of this encounter Visit Diagnoses Not on filedocumented in this encounter Care Teams Arnp Relationship Specialty Start Date End Date Cynthia Rockwell ROAD OILER, C.N.P. PCP - General 08/16/16 [address] [place] [address] documented as of this encounter
--- OUTSIDE RECORDS SUMMARY | 2022-01-21 23:20 | XMS_ITS | Encounter Summary ---
:1955 Author Organization [facility] Address [address] [place] [address] Care Team Providers Name Role Phone Cynthia Rockwell APRN, C.N.P. Primary Care Provider Reason for Visit Reason Comments Med Refill Encounter Details Date Type Department Care Team Description 03/06/2021 Refill Department of Family Medicine, Christi Rockwell APRN, Med Refill [facility], in [place], [place] [address] [place] [address] [place] [address] [phone] Social History Tobacco Use Types Packs/Day Years [...] or relatives? How often do you attend shinto or 1 to 4 times per year 09/01 oriental orthodox services? Do you belong to any clubs or No 09/18/2018 organizations such as shinto groups, unions, fraternal or athletic groups, or [...] Medicine Cynthia Rockwell A PRN, C.N.P. [address] [place], [place] [address] (Wo rk) documented as of this encounter Visit Diagnoses Not on filedocumented in this encounter Care Teams Clay Machine Operator Relationship Specialty Start Date End Date Cynthia Rockwell APRN, C.N.P. PCP - General 08/16/160 [address] [address] documented as of this encounter
--- OUTSIDE RECORDS SUMMARY | 2022-01-21 23:21 | XMS_ITS | Encounter Summary ---
:[address] [facility] Address [address] [place] [address] Care Team Providers Name Role Phone Cynthia Rockwell APRN, C.N.P. Primary Care Provider [phone] Reason for Visit Reason Comments COVID vaccine p2 Encounter Details Date Type Department Care Team Description 07/26/2020 Clinical Communication Division of Perry Arana vaccine; p2 Rheumatology in [place], [place] C.N.P. [address] [facility] [address] [place] [address] [phone] Social History Tobacco Use Types Packs/Day Years [...] or relatives? How often do you attend restorationism or 1 to 4 times per year 09/01 anabaptist services? Do you belong to any clubs or No 09/18/2018 organizations such as restorationism groups, unions, fraternal or athletic groups, or [...] this encounter Miscellaneous Notes Telephone Encounter - Ita Gonzalez M.S.N., R.N. - 07/27/2020 1:50 PM CDT Portal sent Telephone Encounter - Perry Arana APRN, C.N.P. - 07/27/2020 8:56 AM CDT I am not aware that this would lead to any specific concerns but I would suggest she also follow-up with her primary care provider regarding this question. 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 Follow-up requested: Yes - since we do not have an auth to speak with family members, patient will call back when her daughter is there so we can give her the answer. Preferred response (portal/phone): Patient will call back. documented in this encounter Plan of Treatment Upcoming Encounters Date Type Specialty Care Team Description 02/01/2022 Comprehensive Visit Family Medicine Cynthia Rockwell A PRN, C.N.P. [address] [place], [place] [phone] (Wo rk) documented as of this encounter Visit Diagnoses Not on filedocumented in this encounter Care Teams Patient Service Associate Relationship Specialty Start Date End Date Cynthia Rockwell APRN, C.N.P. PCP - General 08/16/16 [address] [place] [facility] [place] [address] documented as of this encounter
--- OUTSIDE RECORDS SUMMARY | 2022-01-21 23:21 | XMS_ITS | Encounter Summary ---
:1955 Author Organization [facility] Address [address] [place] [address] Care Team Providers Name Role Phone Cynthia Rockwell APRN, C.N.P. Primary Care Provider [phone] Reason for Referral Outpatient (Routine) - Closed Specialty Diagnoses / Procedures Referred By Contact Refer red To Contact Diagnoses Screening Mammogram Breast Cancer Cynthia Rockwell APRN, K[facility] Region Procedures BI Breast Screening Bilateral with Tomosynthesis C.N.P. [address] [address] Referral ID Status Reason Start Date Expiration Date Visits Requ ested Visits Authorized [id number] Closed 11/08/2020 11/08/2021 1 1 Encounter Details Date Type Department Care Team Description 11/08/2020 [facility] Cynthia Rockwell Scree ning Mammogram Breast Cancer; MNT SOHAN, C.N.P. Hypothyroidism [address] [address] Social History Tobacco Use Types Packs/Day Years [...] or relatives? How often do you attend bahai or 1 to 4 times per year 09/01 samaritan services? Do you belong to any clubs or No 09/18/2018 organizations such as bahai groups, unions, fraternal or athletic groups, or [...] Family Medicine Cynthia Rockwell, Kuldip PRN, C.N.P. [address] [phone] (Wo rk) documented as of this encounter Results BI Breast Screening Bilateral with Tomosynthesis (01/17/2021 11:11 AM LIBRARY SCIENCE INSTRUCTOR) Anatomical Region Laterality Modality Breast, Breast Imaging RST LOS, Breast Imaging [facility], [place] Bilateral Mammography Imaging [facility] Specimen (Source) Anatomical Collection Method Collection Time Re ceived Time Location / / Volume Laterality 01/17/2021 12:59 PM LIBRARY SCIENCE INSTRUCTOR Impressions 01/17/2021 1:01 PM LIBRARY SCIENCE INSTRUCTOR Negative. RECOMMENDATION: ??Annual Screening Mammo gram ASSESSMENT: ??BI-RADS: 1: Negative. Narrative 01/17/2021 1:01 PM LIBRARY SCIENCE INSTRUCTOR EXAM: ??BI BREAST SCREENING BILATERAL WITH TOMOSYNTHESIS Current study was evaluated with a Compu ter Aided Detection (CAD) system. INDICATION: ??Screening [...] TOMOSYNTHESIS Current study was evaluated with a Compu ter Aided Detection (CAD) system. INDICATION: Screening mammogram. COMPARISON: Prior exam(s) were available and reviewed for comparison. DENSITY: a. The breast(s) are almost ent irely fatty. FINDINGS: No findings of malignancy. No significant change since prior exam. IMPRESSION: Negative. RECOMMENDATION: Annual Screening Mammogr am ASSESSMENT: BI-RADS: 1: Negative. Cynthia Rockwell APRN, C.N.P. IMG BI PROCEDURES (ABNORMAL) S-TSH (Thyroid-Stimulating Hormone - Sensitive) (01/12/2021 8:37 AM LIBRARY SCIENCE INSTRUCTOR) P athologist Signature TSH, Sensitive 6.3 (H) 0.3 - 4.2 01/12/2021 [place] mIU/L 11:11 AM LIBRARY SCIENCE INSTRUCTOR Specimen Anatomical Collection Method Collection Time Receive d Time (Source) Location / / Volume Laterality Blood (Blood, 01/12/2021 8:37 AM 01/13/20 21 Venous) LIBRARY SCIENCE INSTRUCTOR 10:20 AM LIBRARY SCIENCE INSTRUCTOR Cynthia Rockwell APRN, C.N.P. LAB BLOOD ADD-ON Performing Organization Address City/State/ZIP Code Phon e Number [employer]- [address] [place] [address] [place] [address] System in [place] [address] documented in this encounter Visit Diagnoses Diagnosis Screening Mammogram Breast Cancer Hypothyroidism Screening Mammogram Breast Cancer Wolof Language Deficit - Primary General Medical Examination Adult Hypothyroidism Acquired Arthritis Rheumatoid (HCC) High Risk Medication History Of Falling Encounter For COVID-19 Vaccine Immunizat ion Need Vaccine Immunization Influenza Encounter For Other Screening For Malign ant Neoplasm Of Breast documented in this encounter Care Teams Percussion Instrument Tuner Relationship Specialty Start Date End Date Cynthia Rockwell APRN, C.N.P. PCP - General 08/16/[address] [address] documented as of this encounter
--- OUTSIDE RECORDS SUMMARY | 2022-01-21 23:21 | XMS_ITS | Encounter Summary ---
:1955 Author Organization [facility] Address [address] [place] [address] Care Team Providers Name Role Phone Cynthia Rockwell APRN, C.N.P. Primary Care Provider [phone] Reason for Referral Physical Therapy (Routine) - Closed Specialty Diagnoses / Procedures Referred By Contact Refer red To Contact Physical Therapy Diagnoses Arthritis Rheumatoid (HCC) Fibromyalgia Primary Osteoarthritis Knee Bilateral Cynthia Rockwell [facility] SOHAN, C.N.P. Therapy [address] [place] [phone] Phone: [phone] Referral ID Status Reason Start Date Expiration Date Visits V isits Requested Authorized [id number] Closed Service not 04/28/2020 04/28/2021 1 1 available in [facility] [employer]ENT [employer] Reason for Visit Reason Comments Communication Encounter Details Date Type Department Care Team Description 04/28/2020 Clinical Communication Department of [facility] Christi Rockwell, Communication Medicine, [place] SOHAN, C.N.P. Clinic, in [place], [address] [address] [place], [place] [phone] (Work) [phone] Social History Tobacco Use Types Packs/Day Years [...] or relatives? How often do you attend tenriism or 1 to 4 times per year 09/01 zoroastrianism services? Do you belong to any clubs or No 09/18/2018 organizations such as tenriism groups, unions, fraternal or athletic groups, or [...] this encounter Miscellaneous Notes Telephone Encounter - Cornelia Khan L.P.N. - 04/28/2020 1:50 PM CST SUBJECTIVE CHIEF COMPLAINT / REASON FOR CALL Communication Information Discussed Referral to [facility] sent. DME and DME justification sent to [facility]. Vickie from [facility] notified that this has been completed. PLAN Disposition/Recommendation: referral for services Physical Therapy Information/Education: patient/caller able to teach back Caller agreeable to plan of care: yes The following references were used: provider Myrom [employer] Telephone Encounter - Trupti Goodson C.M.A. - 04/28/2020 11:12 AM CST SUBJECTIVE CHIEF COMPLAINT / REASON FOR CALL Communication PLAN The following information was provided: Order for physical therapy to evaluate for the walker Is to go to [facility] The order for raised toilet seat to go to reliable This has been pended Information/Education: patient/caller able to teach back The following references were used: nursing clinical judgement [employer] Telephone Encounter - Rebecca Beckett - 04/28/2020 9:56 AM CST Reason for Communication: Vickie family welfare social work professor from [facility] called. They are trying to coordinatesome assistance for getting some equipment for the patient. Asking for a referral for physical therapy to evaluate for a walker. Also asking if they can get an order for a raised toilet seat. Current Can Nursing/Provider leave a detailed message?: yes Did the patient refuse triage through Nurse line? (for symptom based concerns): Action Needed: please call Name of Medication (if relevant): RINTENDENT POLICE documented in this encounter Plan of Treatment Upcoming Encounters Date Type Specialty Care Team Description 02/01/2022 Comprehensive Visit Family Medicine Cynthia Rockwell A PRN, C.N.P. [address] [place], [place] [phone] (Wo rk) documented as of this encounter Visit Diagnoses Diagnosis Arthritis Rheumatoid (HCC) - Primary Functional Incontinence Urinary Fibromyalgia Primary Osteoarthritis Knee Bilateral Bahamian Language Deficit - Primary General Medical Examination Adult Hypothyroidism Acquired Arthritis Rheumatoid (HCC) High Risk Medication History Of Falling Encounter For COVID-19 Vaccine Immunizat ion Need Vaccine Immunization Influenza Encounter For Other Screening For Malign ant Neoplasm Of Breast documented in this encounter Care Teams Machine Stacker Relationship Specialty Start Date End Date Cynthia Rockwell HISTOTECHNICIAN, C.N.P. PCP - General 08/16/16 [address] [place] [address] documented as of this encounter
--- OUTSIDE RECORDS SUMMARY | 2022-01-21 23:21 | XMS_ITS | Encounter Summary ---
:1955 Author Organization [facility] Address [address] [place] [address] Care Team Providers Name Role Phone Cynthia Rockwell APRN, C.N.P. Primary Care Provider [phone] Reason for Visit Reason Comments Med Refill Encounter Details Date Type Department Care Team Description 06/15/2020 Refill Department of Family Medicine, Dewayne Chandra I. Med Refill [facility], in [place] Jon. [place], [place] [address] [facility] [address] [place] [address] [place] [address] [phone] Social History Tobacco Use Types Packs/Day Years [...] or relatives? How often do you attend scientologist or 1 to 4 times per year 09/01 yarsanism services? Do you belong to any clubs or No 09/18/2018 organizations such as scientologist groups, unions, fraternal or athletic groups, or [...] Medicine Cynthia Rockwell A PRN, C.N.P. [address] [place], [place] [phone] (Wo rk) documented as of this encounter Visit Diagnoses Not on filedocumented in this encounter Care Teams Shearing Shed Worker Relationship Specialty Start Date End Date Cynthia Rockwell APRN, C.N.P. PCP - General 08/16/[address] [address] documented as of this encounter
--- OUTSIDE RECORDS SUMMARY | 2022-01-21 23:21 | XMS_ITS | Encounter Summary ---
:1955 Author Organization [facility] Address [address] [place] [address] Care Team Providers Name Role Phone Cynthia Rockwell APRN, C.N.P. Primary Care Provider [phone] Reason for Visit Reason Comments Med Refill Encounter Details Date Type Department Care Team Description 06/15/2020 Refill Division of Rheumatology in Perry Arana APRN, Med Refill [place], [place] C.N.P. [address] [facility] [address] [place] [address] [place] [address] [phone] (Wo rk) Social History Tobacco Use Types [...] 1 to 4 times per year 09/01 jewish services? Do you belong to any clubs [...] Telephone Encounter - Julisa Henderson R.N. - 06/21/2020 1:57 PM CDT Prescription renewal request for prednisone received from pharmacy. HISTORY OF PRESENT ILLNESS [...] Cynthia Rockwell, Kuldip EUBANKS, C.N.P. [address] [place] [phone] (Wo rk) documented as of this encounter Visit Diagnoses Diagnosis Arthritis Rheumatoid (HCC) Yi Language Deficit - Primary General Medical Examination Adult Hypothyroidism Acquired Arthritis Rheumatoid (HCC) High Risk Medication History Of Falling Encounter For COVID-19 Vaccine Immunizat ion Need Vaccine Immunization Influenza Encounter For Other Screening For Malign ant Neoplasm Of Breast documented in this encounter Care Teams Jitney Driver Relationship Specialty Start Date End Date Cynthia Rockwell APRN, C.N.P. PCP - General 08/16/16 [address] [place] [phone] documented as of this encounter
--- OUTSIDE RECORDS SUMMARY | 2022-01-21 23:21 | XMS_ITS | Encounter Summary ---
:1955 Author Organization [facility] Address [address] [place] [address] Care Team Providers Name Role Phone Cynthia Rockwell APRN, C.N.P. Primary Care Provider [phone] Reason for Visit Outpatient (Routine) - Closed Specialty Diagnoses / Procedures Referred By Contact Refer red To Contact Infectious Diseases Diagnoses Arthritis Rheumatoid (HCC) Tuberculosis Perry Arana, [facility] Procedures Infectious Diseases - Screening and management of latent TB eConsult SOHAN, C.N.P. [address] [place] [phone] Referral ID Status Reason Start Date Expiration Date Visits Requ ested Visits Authorized [id number] Closed 03/10/2020 03/10/2021 1 1 Encounter Details Date Type Department Care Team Description 03/11/2020 Internal E-Consult Section of [place] Arana APRN, C.N.P. [address] [place] [phone] Arthritis Rheumatoid (HCC); Infectious Diseases Dasia Dempsey M.B., Ch.B. [address] [place] [phone] Tuberculosis in [place], [place] [address] [place] [phone] Social History Tobacco Use Types Packs/Day Years [...] or relatives? How often do you attend congregational or 1 to 4 times per year 09/01 caodaism services? Do you belong to any clubs or No 09/18/2018 organizations such as congregational groups, unions, fraternal or athletic groups, or [...] on file documented as of this encounter Consult Notes Dasia Dempsey M.B., Ch.B. - 03/11/2020 11:30 AM CST SUBJECTIVE Ordering Physician: Perry Arana APRN, C.N.P. The patient was not personally interviewed or examined. The history and examination findings are based on the clinical documentation provided and/or discussed with a physician or provider who had personally interviewed and examined the patient. Time spent: Five minutes or more of medical review. Reason for electronic consult Patient with RA, previous diagnosis of TB treated with 9months of isoniazid - would biologic therapies be an option in this patient in the future? History of Present Illness Mrs. Arias is a 65 year old woman with rheumatoid arthritis, on prednisone, leflunomide and methotrexate. Prior remote history of latent tuberculosis infection, reportedly completed a 9 month course of isoniazid (per Dr Canales's note in EMR 04/20/2005, she was on isoniazid). No prior HIV screen in EMR. Due to persistent disease activity a biologic DMARD is being considered. We are asked to comment on the safety of this in the context of prior treated LTBI. OBJECTIVE ASSESSMENT / PLAN 1. Rheumatoid arthritis 2. History of LTBI s/p 9 months isoniazid In clinical trials the efficacy of 9 months of isoniazid for treatment of latent tuberculosis infection is 60-90%. Notably this efficacy is substantially higher when DOT was used in clinical trials with intermittent INH therapy. After completion of LTBI therapy patients should be counselled that they do not have lifelong protection against TB. They are still at risk for reinfection if they have re-exposure (known contact with active TB, travel to higher TB prevalence areas etc). If since completing LTBI therapy this patient has spent a prolonged period of time in [place], or another high prevalence area for TB, we should consider retreating for LTBI prior to starting biologics. In this instance consider a ID video/phone or F2F visit. ITAL INTERNSHIP documented in this encounter Plan of Treatment Upcoming Encounters Date Type Specialty Care Team Description 02/01/2022 Comprehensive Visit Family Medicine Cynthia Rockwell A PRN, C.N.P. [address], [place] [phone] (Wo rk) documented as of this encounter Visit Diagnoses Diagnosis Arthritis Rheumatoid (HCC) Tuberculosis Lithuanian Language Deficit - Primary General Medical Examination Adult Hypothyroidism Acquired Arthritis Rheumatoid (HCC) High Risk Medication History Of Falling Encounter For COVID-19 Vaccine Immunizat ion Need Vaccine Immunization Influenza Encounter For Other Screening For Malign ant Neoplasm Of Breast documented in this encounter Care Teams Material Handler Floorperson Relationship Specialty Start Date End Date Cynthia Rockwell APRN, C.N.P. PCP - General 08/16/16 [address], [place] [address] documented as of this encounter
--- OUTSIDE RECORDS SUMMARY | 2022-01-21 23:21 | XMS_ITS | Encounter Summary ---
:1955 Author Organization [facility] Address [address] [place] [address] Care Team Providers Name Role Phone Cynthia Rockwell APRN, C.N.P. Primary Care Provider [phone] Reason for Visit Reason Comments Med Refill Encounter Details Date Type Department Care Team Description 08/08/2020 Refill Division of Rheumatology in [place] Arana APRN, Med Refill [place], [place] C.N.P. [address] [facility] [address] [place] [address] [place] [address] [phone] (Wo rk) Social History Tobacco Use Types [...] or relatives? How often do you attend presybeterian or 1 to 4 times per year 09/01 episcopalian services? Do you belong to any clubs or No 09/18/2018 organizations such as presybeterian groups, unions, fraternal or athletic groups, or [...] this encounter Miscellaneous Notes Telephone Encounter - Radha Glover R.N. - 08/15/2020 2:33 PM CDT Prescription renewal request for diclofenac received from pharmacy. HISTORY OF PRESENT ILLNESS [...] Cynthia Rockwell, Kuldip EUBANKS, C.N.P. [address] [place] [phone] (Wo rk) documented as of this encounter Visit Diagnoses Diagnosis Arthritis Rheumatoid (HCC) - Primary Tamazight Language Deficit - Primary General Medical Examination Adult Hypothyroidism Acquired Arthritis Rheumatoid (HCC) High Risk Medication History Of Falling Encounter For COVID-19 Vaccine Immunizat ion Need Vaccine Immunization Influenza Encounter For Other Screening For Malign ant Neoplasm Of Breast documented in this encounter Care Teams Rheostat Assembler Relationship Specialty Start Date End Date Cynthia Rockwell APRN, C.N.P. PCP - General 08/16/16 [address], [place] [address] documented as of this encounter
--- OUTSIDE RECORDS SUMMARY | 2022-01-21 23:21 | XMS_ITS | Encounter Summary ---
:1955 Author Organization [facility] Address [address] [place] [address] Care Team Providers Name Role Phone Cynthia Rockwell APRN, C.N.P. Primary Care Provider [phone] Encounter Details Date Type Department Care Team Description 12/24/2019 Clinical Communication Department of [facility] Christi Rockwell, Medicine, [place] SOHAN, C.N.P. [facility], in [facility] [address] [place] [address] [place], [place] [phone] [phone] (Work) [phone] Social History Tobacco Use Types Packs/Day Years [...] or relatives? How often do you attend buddhism or 1 to 4 times per year 09/01 hinduism services? Do you belong to any clubs or No 09/18/2018 organizations such as buddhism groups, unions, fraternal or athletic groups, or [...] this encounter Miscellaneous Notes Telephone Encounter - Salina Jordan - 12/24/2019 3:45 PM CDT 1. Is the patient requesting a COVID test only or other appointments? Other Appointments 2. Have you tested positive for COVID-19 in the last 30 days or do you have a pending COVID-19 test because you had symptoms? no 3. In the last 14 days have you had close contact with a lab confirmed positive case of COVID-19 (close contact is defined as a household case of COVID or being within 6 feet of a COVID-19 patient for more than 5 minutes or having direct contact with infectious secretions, e.g., being coughed on)? no 4. In the past 14 days, are any of the following symptoms new to you and not related to an existing health condition? a. Fever greater than or equal to 37.8 C (100.0 F)? no b. New symptoms (Specifically: headache, cough, shortness of breath, respiratory distress, sore throat, diarrhea, nausea, vomiting, chills and repeated shaking with chills, myalgia's (muscle aches), loss of smell, or change or loss of taste sensation)? no 5. Are you having NEW trouble breathing, worsening breathing, or feeling as though you're going to collapse when you stand or sit up? no 6. Have you tested positive for COVID in the last 90 days? no Route reply to: Scheduling Contact Number: documented in this encounter Plan of Treatment Upcoming Encounters Date Type Specialty Care Team Description 02/01/2022 Comprehensive Visit Family Medicine Cynthia Rockwell A PRN, C.N.P. [address] [phone] (Wo rk) documented as of this encounter Visit Diagnoses Not on filedocumented in this encounter Care Teams Metal Fabricator Relationship Specialty Start Date End Date Cynthia Rockwell APRN, C.N.P. PCP - General 08/16/16 [address] [place] [address] documented as of this encounter
--- OUTSIDE RECORDS SUMMARY | 2022-01-21 23:21 | XMS_ITS | Encounter Summary ---
:1955 Author Organization [facility] Address [address] [place] [address] Care Team Providers Name Role Phone Cynthia Rockwell APRN, C.N.P. Primary Care Provider [phone] Encounter Details Date Type Department Care Team Description 03/07/2020 Hospital Encounter Department of Perry Arana is Rheumatoid Laboratory Medicine [place]AN C.N .[place] ([facility]) in [place] [address] [address] [place], [place] [phone] [address] (Work) [phone] Social History Tobacco Use Types Packs/Day Years [...] or relatives? How often do you attend caodaism or 1 to 4 times per year 09/01 presybeterian services? Do you belong to any clubs or No 09/18/2018 organizations such as caodaism groups, unions, fraternal or athletic groups, or [...] Sig Dispensed Refills Start Date End Date DULoxetine (CYMBALTA) 60 Take 1 capsule (60 [address] capsuleIndications: mg total) by mouth Fibromyalgia 2 (two) times a day. traZODone (DESYREL) 50 mg Take 1 tablet (50 30 tablet 11 01/2020 tabletIndications: mg total) by mouth Disturbance Sleep at bedtime as needed for sleep. acetaminophen (TYLENOL) Take 30 mL (960 mg 473 mL 11 12/0304/11/2021 160 mg/5 mL total) by mouth liquidIndications: every 8 (eight) Arthritis Rheumatoid hours as needed for (HCC) pain or fever. ammonium lactate APPLY CREAM 385 g 1 11/10/2019 021 (AMLACTIN) 12 % cream TOPICALLY TO AFFECTED AREA ONCE DAILY cholecalciferol (VITAMIN Take 2,000 Units by 0 04/20/2020 D3) 2,000 Unit tablet mouth daily. diclofenac sodium Apply 2 g topically 1 Tube 3 0 08/08/2020 (Voltaren) 1 % gel 4 (four) times a day. 4 g [...] mg Take 1 tablet 90 tablet 3 05/13/20192020 tabletIndications: (1,000 mcg total) Arthritis Rheumatoid by mouth daily. (HCC) leflunomide (ARAVA) 20 mg Take 1 tablet (20 30 tablet 6 06/201905/19/2020 tabletIndications: mg total) by mouth Arthritis Rheumatoid daily. (HCC) levothyroxine (SYNTHROID, Take 1 tablet by 90 tablet 3 12/0301/12/2021 LEVOTHROID) 75 mcg mouth once daily tabletIndications: Hypothyroidism Acquired meclizine (ANTIVERT) 25 Take 25 mg by mouth 0 04/20/2020 mg tablet as needed. methotrexate 2.5 mg Take 8 tablets (20 32 tablet 5 11/06/19 20 12/23/2020 tabletIndications: mg total) by mouth Arthritis Rheumatoid once a week. (HCC) omeprazole (PriLOSEC) 20 TAKE 1 CAPSULE BY 90 capsule 3 11/0201/20/[address] capsule MOUTH IN THE MORNING BEFORE BREAKFAST predniSONE (DELTASONE) 5 Take 1 tablet (5 mg 90 tablet 3 06/15/2020 mg tabletIndications: total) by mouth Arthritis Rheumatoid daily. (HCC) documented as of this encounter Plan of Treatment Upcoming Encounters Date Type Specialty Care Team Description 02/01/2022 Comprehensive Visit Family Medicine Cynthia Rockwell A PRN, C.N.P. [address] [phone] (Wo rk) documented as of this encounter Procedures Procedure Name Priority Date/Time Associated Comments Diagnosis SEDIMENTATION RATE, B Routine 03/07/2020 12:10 Arthritis Re sults for this PM CASE FINISHER Rheumatoid (HCC) procedure a re in the results section. CBC WITH DIFFERENTIAL, B Routine 03/07/2020 12:10 Arthritis Results for this PM CASE FINISHER Rheumatoid (HCC) procedure a re in the results section. C-REACTIVE PROTEIN Routine 03/07/2020 12:10 Arthritis Resul ts for this (CRP), S/P PM CASE FINISHER Rheumatoid (HCC) procedure a re in the results section. ASPARTATE Routine 03/07/2020 12:10 Arthritis Results for this AMINOTRANSFERASE (AST), PM CASE FINISHER Rheumatoid (HCC) procedure are in S/P the results section. CREATININE WITH EGFR, Routine 03/07/2020 12:10 Arthritis Re sults for this S/P PM CASE FINISHER Rheumatoid (HCC) procedure a re in the results section. documented in this encounter Results (ABNORMAL) Creatinine with Estimated GFR (03/07/2020 12:10 PM CASE FINISHER) Analysis Performed At Patho logist Time Signature Creatinine 0.57 (L) 0.59 - 03/07/2020 OWAT 1.04 mg/dL 4:38 PM CASE FINISHER eGFR-Black/Afri >90 >=60 03/07/2020 OWAT can Slovak mL/min/BSA 4:38 PM CASE FINISHER Comment: ----ADDITIONAL INFORMATION---- Estimated GFR calculated using the 2009 CKD_EPI creatinine equation. eGFR Non-Black/ >90 >=60 mL/min/BSA 03/07/2020 4:38 PM CASE FINISHER OWAT Comment: ----ADDITIONAL INFORMATION---- Estimated GFR calculated using the 2009 CKD_EPI creatinine equation. Specimen Anatomical Collection Method Collection Time Receive d Time (Source) Location / / Volume Laterality Blood (Blood, 03/07/2020 12:10 03/07/2020 4:08 Venous) PM CASE FINISHER PM CASE FINISHER Perry Arana APRN, C.N.P. LAB BLOOD ADD-ON Performing Organization Address City/State/[facility] Code Phon e Number [facility]- [address] [place] [address] [place] [address] System in [place] [address] AST (Aspartate Aminotransferase) (03/07/2020 12:10 PM CASE FINISHER) Patholo gist Method Time Signature Aspartate 23 8 - 43 03/07/2020 OWAT Aminotransferase U/L 4:38 PM CASE FINISHER (AST), P Specimen Anatomical Collection Method Collection Time Receive d Time (Source) Location / / Volume Laterality Blood (Blood, 03/07/2020 12:10 03/07/2020 4:08 Venous) PM CASE FINISHER PM CASE FINISHER Perry Arana APRN, C.N.P. LAB BLOOD ADD-ON Performing Organization Address City/State/ZIP Code Phon e Number [facility]- [address] [place] [address] [place] [address] System in [place] [address] (ABNORMAL) CRP (C-Reactive Protein) (03/07/2020 12:10 PM CASE FINISHER) P athologist Signature C-Reactive 28.1 (H) <=8.0 mg/L 03/07/2020 OWAT Protein (CRP), 4:38 PM CASE FINISHER P Specimen Anatomical Collection Method Collection Time Receive d Time (Source) Location / / Volume Laterality Blood (Blood, 03/07/2020 12:10 03/07/2020 4:08 Venous) PM CASE FINISHER PM CASE FINISHER Arlette Joaquin APRN.N.P. LAB BLOOD ADD-ON Performing Organization Address City/[facility]/ZIP Code Phon e Number [facility]- [address] [place] [address] [place] [address] System in [place] [address] (ABNORMAL) Sedimentation Rate (03/07/2020 12:10 PM CASE FINISHER) [facility] [employer] Method Time Signature Sedimentation 53 (H) 0 - 29 03/07/2020 OWAT Rate, B mm/1 h 4:56 PM CASE FINISHER Specimen Anatomical Collection Method Collection Time Receive d Time (Source) Location / / Volume Laterality Blood (Blood, 03/07/2020 12:10 03/07/2020 4:08 Venous) PM CASE FINISHER PM CASE FINISHER Arlette Joaquin APRN.N.P. LAB BLOOD ADD-ON Performing Organization Address City/[facility] Code Phon e Number [facility]- [address] [place] [address] [facility] [place] [address] System in [place] [address] (ABNORMAL) CBC with Differential, Blood (03/07/2020 12:10 PM CASE FINISHER) [facility] [employer] Method Time Signature Hemoglobin 12.7 11.6 - 03/07/2020 FB60 15.0 g/dL 12:14 PM CASE FINISHER Hematocrit 39.3 35.5 - 03/07/2020 FB60 44.9 % 12:14 PM CASE FINISHER Erythrocytes 4.48 3.92 - 03/07/2020 FB60 5.13 12:14 PM CASE FINISHER x10(12)/L MCV 87.7 78.2 - 03/07/2020 FB60 97.9 fL 12:14 PM CASE FINISHER RBC Distrib Width 14.7 12.2 - 03/07/2020 FB60 16.1 % 12:14 PM CASE FINISHER Platelet Count 227 157 - 371 03/07/2020 FB60 x10(9)/L 12:14 PM CASE FINISHER Leukocytes 2.8 (L) 3.4 - 9.6 03/07/2020 FB60 x10(9)/L 12:14 PM CASE FINISHER Neutrophils 1.62 1.56 - 03/07/2020 FB60 6.45 12:14 PM CASE FINISHER x10(9)/L Lymphocytes 0.78 (L) 0.95 - 03/07/2020 FB60 3.07 12:14 PM CASE FINISHER x10(9)/L Monocytes 0.28 0.26 - 03/07/2020 FB60 0.81 12:14 PM CASE FINISHER x10(9)/L Eosinophils 0.10 0.03 - 03/07/2020 FB60 0.48 12:14 PM CASE FINISHER x10(9)/L Basophils 0.00 (L) 0.01 - 03/07/2020 FB60 0.08 12:14 PM CASE FINISHER x10(9)/L Specimen Anatomical Collection Method Collection Time Receive d Time (Source) Location / / Volume Laterality Blood (Blood, 03/07/2020 12:10 03/07/2020 Venous) PM CASE FINISHER 12:10 PM CASE FINISHER Perry Arana APRN, C.N.P. LAB BLOOD ADD-ON Performing Organization Address City/State/ZIP Code Phon e Number [place] [address] [place] [address] [facility] [address] [place] [address] [address] documented in this encounter Visit Diagnoses Diagnosis Arthritis Rheumatoid (HCC) Jordanian Language Deficit - Primary General Medical Examination Adult Hypothyroidism Acquired Arthritis Rheumatoid (HCC) High Risk Medication History Of Falling Encounter For COVID-19 Vaccine Immunizat ion Need Vaccine Immunization Influenza Encounter For Other Screening For Malign ant Neoplasm Of Breast documented in this encounter Care Teams Toter Relationship Specialty Start Date End Date Cynthia Rockwell APRN, C.N.P. PCP - General 08/16/16 [address] [place] [phone] documented as of this encounter
--- OUTSIDE RECORDS SUMMARY | 2022-01-21 23:21 | XMS_ITS | Encounter Summary ---
:1955 Author Organization [facility] Address [address] [place] [address] Care Team Providers Name Role Phone Cynthia Rockwell APRN, C.N.P. Primary Care Provider [phone] Encounter Details Date Type Department Care Team Description 12/31/2019 Hospital Encounter Department of Monique Payne Rheumatoid Laboratory Medicine Candis Santana ([facility]) in [place], [facility] [address] [place], [place] [address] [facility] [address] [place], [place] [phone] [address] (Work) [phone] Social History Tobacco Use Types Packs/Day Years [...] by mouth Arthritis Rheumatoid once a week. ([facility]) omeprazole (PriLOSEC) 20 TAKE 1 CAPSULE BY 90 capsule 3 11/0201/20/[address] capsule MOUTH IN THE MORNING BEFORE BREAKFAST predniSONE (DELTASONE) Take 6 tablets (15 306 tablet 0 11/0503/03/2020 2.5 mg tablet mg total) by mouth daily for 7 days, THEN 5 tablets (12.5 mg total) daily for 7 days, THEN 4 tablets (10 mg total) daily for 7 days, THEN 3 tablets (7.5 mg total) daily for 7 days, THEN 2 tablets (5 mg total) daily. Split dose between morning dosing and early afternoon dosing.. predniSONE (DELTASONE) 5 Take 1 tablet (5 mg 90 tablet 3 06/15/2020 mg tabletIndications: total) by mouth Arthritis Rheumatoid daily. ([facility]) documented as of this encounter Plan of Treatment Upcoming Encounters Date Type Specialty Care Team Description 02/01/2022 Comprehensive Visit Family Medicine Cynthia Rockwell, Kuldip PRN, C.N.P. [address] [phone] (Wo rk) documented as of this encounter Procedures Procedure Name Priority Date/Time Associated Comments Diagnosis SEDIMENTATION RATE, B Routine 12/31/2019 3:26 PM Arthritis Results for this CDT Rheumatoid (HCC) procedure a re in the results section. documented in this encounter Results (ABNORMAL) Sedimentation Rate (12/31/2019 3:26 PM CDT) [facility] Method Time Signature Sedimentation 64 (H) 0 - 12/31/2019 FB60 Rate, B mm/1 h 4:23 PM CDT Specimen Anatomical Collection Method Collection Time Receive d Time (Source) Location / / Volume Laterality Blood (Blood, 12/31/2019 3:26 PM 12/31/19 3:27 Venous) CDT PM CDT Max Payne M.D. LAB BLOOD ADD-ON Performing Organization Address City/State/ZIP Code Phon e Number [facility]- [address] [place] [address] [facility] [address] [place] [address] System in [place] [address] documented in this encounter Visit Diagnoses Diagnosis Arthritis Rheumatoid (HCC) Chadian Language Deficit - Primary General Medical Examination Adult Hypothyroidism Acquired Arthritis Rheumatoid (HCC) High Risk Medication History Of Falling Encounter For COVID-19 Vaccine Immunizat ion Need Vaccine Immunization Influenza Encounter For Other Screening For Malign ant Neoplasm Of Breast documented in this encounter Care Teams Hand Washer Relationship Specialty Start Date End Date Cynthia Rockwell, SOHAN, C.N.P. PCP - General 08/16/16 [address] [phone] documented as of this encounter
--- OUTSIDE RECORDS SUMMARY | 2022-01-21 23:21 | XMS_ITS | Encounter Summary ---
:1955 Author Organization [facility] Address [address] [place] [address] Care Team Providers Name Role Phone Cynthia Rockwell APRN, C.N.P. Primary Care Provider [phone] Reason for Visit Reason Comments Other Rib pain from fall a couple years ago, flu shot, not fasting. Appointment Request (Routine) - Closed Specialty Diagnoses / Procedures Referred By Contact Refer red To Contact Community Pediatric and Adolescent Medicine Referral ID Status Reason Start Date Expiration Date Visits Requ ested Visits Authorized [id number] Closed 12/24/2019 12/23/2020 1 1 Encounter Details Date Type Department Care Team Description 12/31/2019 Comprehensive Visit Department of Shanique Payne is Rheumatoid (HCC) (Primary Dx); Family MedicineMax M.D. Fibromyalgia; [facility], [address]; in [facility] Dyspepsia; [place], [place] Screening Colon Cancer [place] ge Risk [address] [address] [place], [place] [phone] (Work) [phone] Social History Tobacco Use Types Packs/Day Years [...] Sign Reading Time Taken Comments Blood Pressure 116/41 12/31/2019 2:39 PM CDT Pulse 68 12/31/2019 2:39 PM CDT Temperature 36.3 ??C (97.4 ??F) 12/31/2019 2:39 PM CDT Respiratory Rate 20 12/31/2019 2:39 PM CDT Oxygen Saturation - - Inhaled Oxygen Concentration - - Weight 77.8 kg (171 lb 8.3 oz) 12/31/2019 2:39 PM CDT Height 153.5 cm (5' 0.43) 12/31/2019 2:39 PM CDT Body Mass Index 33.02 12/31/2019 2:39 PM CDT documented in this encounter Progress Notes Max Payne M.D. - 12/31/2019 2:45 PM CDT SUBJECTIVE CHIEF COMPLAINT / REASON FOR VISIT Althea presents for evaluation of Other (Rib pain from fall a couple years ago, flu shot, not fasting.). HISTORY OF PRESENT ILLNESS Althea Arias is a 64 y.o. female who has a past medical history of Arthritis Rheumatoid (HCC), DJD (OA) Knee NOS, Dyspepsia, Functional Incontinence Urinary, High Risk Medication, Hypothyroidism Acquired, Osteopenia, and Primary Osteoarthritis Knee Bilateral. #1 Arthritis Rheumatoid (HCC) Patient is followed carefully by Perry Arana HAND SUTURE WINDER Rheumatology. She currently is on methotrexate with folic acid rescue, leflunomide and prednisone. She continues to have significant pain in her jointsespecially her hands and shoulders. Her most recent sedimentation rate was in October and was 50. At that juncture she was started on a prednisone taper. She is approaching her baseline prednisone dose.She also complains of chest wall pain but that is related to rib fractures from multiple years ago. #2 Fibromyalgia She has been diagnosed with fibromyalgia, so this complicates her perception of her arthritis pain. She is on Cymbalta but this dose potentially could be increased. She describes pain in her shoulder and hips. Multiple trigger points are identified. #3 Hypothyroidism Acquired She has acquired hypothyroidism most recently she is taking move levothyroxine 75 mcg daily TSH was completed in August 2019 and was 4.2. Over time we may want to titrate the dose of levothyroxine upward. Will plan to reassess a TSH in spring 2020. #4 Dyspepsia Symptoms have been stable with omeprazole 20 mg daily. She did not have a significant flare of symptoms with her higher dose prednisone taper. Patient is due for colon cancer screening. CURRENT MEDICATIONS Current Outpatient Medications Medication Sig Dispense Refill ??? acetaminophen (TYLENOL) 160 mg/5 mL liquid Take 30 mL (960 mg total) by mouth every 8 (eight) hours as needed for pain or fever. 473 mL 11 ??? ammonium lactate (AMLACTIN) 12 % cream APPLY CREAM TOPICALLY TO AFFECTED AREA ONCE DAILY 385 g 1 ??? cholecalciferol (VITAMIN D3) 2,000 Unit tablet Take 2,000 Units by mouth daily. ??? diclofenac sodium (Voltaren) 1 % gel Apply 2 g topically 4 (four) times a day. 4 g applied LE at4 times daily; 2 g applied to UE 4 times daily; MAX 8 g/day to single joint of UE, 16 g/day to any single joint of LE, 32 g/day total. 1 Tube 3 ??? DULoxetine (CYMBALTA) [address] capsule Take 1 capsule (60 mg total) by mouth 2 (two) times a day. 60 capsule 11 ??? folic acid 1 mg tablet Take 1 tablet (1,000 mcg total) by mouth daily. 90 tablet 3 ??? leflunomide (ARAVA) 20 mg tablet Take 1 tablet (20 mg total) by mouth daily. 30 tablet 6 ??? levothyroxine (SYNTHROID, LEVOTHROID) 75 mcg tablet Take 1 tablet by mouth once daily 90 tablet 3 ??? meclizine (ANTIVERT) 25 mg tablet Take 25 mg by mouth as needed. ??? methotrexate 2.5 mg tablet Take 8 tablets (20 mg total) by mouth once a week. 32 tablet 5 ??? omeprazole (PriLOSEC) [address] capsule TAKE 1 CAPSULE BY MOUTH IN THE MORNING BEFORE BREAKFAST 90 capsule 3 ??? predniSONE (DELTASONE) 2.5 mg tablet Take 6 tablets (15 mg total) by mouth daily for 7 days, THEN 5 tablets (12.5 mg total) daily for 7 days, THEN 4 tablets (10 mg total) daily for 7 days, THEN 3 tablets (7.5 mg total) daily for 7 days, THEN 2 tablets (5 mg total) daily. Split dose between morningdosing and early afternoon dosing.. 306 tablet 0 ??? predniSONE (DELTASONE) 5 mg tablet Take 1 tablet (5 mg total) by mouth daily. 90 tablet 3 ??? traZODone (DESYREL) 50 mg tablet Take 1 tablet (50 mg total) by mouth at bedtime as needed for sleep. 30 tablet 11 No current facility-administered medications for this visit. ALLERGIES No Known Allergies REVIEW OF SYSTEMS No change in weight. No other constitutional symptoms. No headache or visual symptoms. No ENT complaints. Patient denies dysphagia. No shortness of breath, no chest pain, no palpitations, paroxysmal nocturnal dyspnea or orthopnea. No nausea, vomiting, constipation, or diarrhea. No genitourinary, musculoskeletal, skin, or neurologic complaints except per HPI. OBJECTIVE PHYSICAL EXAMINATION Vital signs: Blood pressure (!) 116/41, pulse 68, temperature 36.3 ??C, temperature source Temporal,resp. rate 20, height 153.5 cm, weight 77.8 kg. General: Alert female who is in no acute distress. HEENT: Normal TMs. Nose and throat clear. Neck: Supple. Lungs: Clear. Heart: Regular rate and rhythm, no murmur. Abdomen: Benign. No peripheral edema. Musculoskeletal: She is tender over the shoulder girdles she has got trigger points along the left base her scapula and at the lateral elbow. She additionally has trigger points over the anterior shoulder. At the hands she has findings consistent with rheumatoid arthritis. There is no significant erythema or warmth now. Neurologic: Screening neurologic exam is intact. ASSESSMENT / PLAN #1 Arthritis Rheumatoid (HCC) She seems to be quite uncomfortable. We will reassess a sedimentation rate. Will contact Perry Paz CNP, Rheumatology as needed. #2 Fibromyalgia Observation for now consider increasing Cymbalta. #3 Hypothyroidism Acquired Continue levothyroxine 75 mcg daily. If the TSH is in this same range or higher in the spring would recommend increasing levothyroxine 88 mcg daily. #4 Dyspepsia Continue omeprazole 20 mg daily. #5 Screening Colon Cancer Average Risk We discussed the importance of colon cancer screening. We discussed Cologuard. She would like to proceed. All of the above was reviewed in detail with she and her son. Her son function as her motor vehicle parts interpreter attheir request. There were no significant barriers to learning identified. Addendum 01/01/20 Patient's sedimentation rate is 64 today. Will discuss with Perry Arana CNP, Rheumatology and consider next diagnostic steps and then management as appropriate. documented in this encounter Plan of Treatment Upcoming Encounters Date Type Specialty Care Team Description 02/01/2022 Comprehensive Visit Family Medicine Cynthia Rockwell, Kuldip PRN, C.N.P. [address] [phone] (Wo rk) documented as of this encounter Results (ABNORMAL) Sedimentation Rate (12/31/2019 3:26 PM CDT) [facility] Method Time Signature Sedimentation 64 (H) 0 - 29 12/31/2019 FB60 Rate, B mm/1 h 4:23 PM CDT Specimen Anatomical Collection Method Collection Time Receive d Time (Source) Location / / Volume Laterality Blood (Blood, 12/31/2019 3:26 PM 12/31/19 20 3:27 Venous) CDT PM CDT Max Payne M.D. LAB BLOOD ADD-ON Performing Organization Address City/State/ZIP Code Phon e Number [facility]- [address] [place] [address] [facility] [address] [place] [address] System in [place] [address] documented in this encounter Visit Diagnoses Diagnosis Arthritis Rheumatoid (HCC) - Primary Fibromyalgia Hypothyroidism Acquired Dyspepsia Screening Colon Cancer Average Risk Syrian Language Deficit - Primary General Medical Examination Adult Hypothyroidism Acquired Arthritis Rheumatoid (HCC) High Risk Medication History Of Falling Encounter For COVID-19 Vaccine Immunizat ion Need Vaccine Immunization Influenza Encounter For Other Screening For Malign ant Neoplasm Of Breast documented in this encounter Care Teams Plating Tank Operator Relationship Specialty Start Date End Date Cynthia Rockwell, SOHAN, C.N.P. PCP - General 08/16/16 [address] [place] [phone] documented as of this encounter
--- OUTSIDE RECORDS SUMMARY | 2022-01-21 23:21 | XMS_ITS | Encounter Summary ---
:1955 Author Organization [facility] Address [address] [place] [address] Care Team Providers Name Role Phone Cynthia Rockwell APRN, C.N.P. Primary Care Provider [phone] Reason for Visit Reason Comments Form Review [employer] [id number] Encounter Details Date Type Department Care Team Description 09/21/2020 Clinical Communication Department of Cynthia Rockwell Review Family MedicineBrandon APRN, ([facility] 0 [phone]) [facility], C.N.P. in [facility] [address] [place] [facility] [place] [phone] Social History Tobacco Use Types Packs/Day Years [...] or relatives? How often do you attend yazdanism or 1 to 4 times per year 09/01 adventism services? Do you belong to any clubs or No 09/18/2018 organizations such as yazdanism groups, unions, fraternal or athletic groups, or [...] this encounter Miscellaneous Notes Telephone Encounter - Maribeth Ambrosio - 09/22/2020 9:26 AM CDT Received back completed form. Form faxed back to the listed facility. Scanned into [facility] Telephone Encounter - Maribeth Ambrosio Brandon - 09/21/2020 6:30 PM CDT Form was emailed to Cynthia Rockwell APRN, C.N.P. for electronic review/signature. SLEDGER: [facility] [employer] (Home Health Agency) PHONE NUMBER: [phone] INFO REQUESTED: Order -raised toilet seat initial date 04/28 INSTRUCTIONS: Fax information to [phone] documented in this encounter Plan of Treatment Upcoming Encounters Date Type Specialty Care Team Description 02/01/2022 Comprehensive Visit Family Medicine Cynthia Rockwell A PRN, C.N.P. [address] [place], [place] [phone] (Wo rk) documented as of this encounter Visit Diagnoses Not on filedocumented in this encounter Care Teams Bit And Shank Department Supervisor Relationship Specialty Start Date End Date Cynthia Rockwell APRN, C.N.P. PCP - General 08/16/16 [address], [place] [phone] documented as of this encounter
--- OUTSIDE RECORDS SUMMARY | 2022-01-21 23:21 | XMS_ITS | Encounter Summary ---
:1955 Author Organization [facility] Address [address] [place] [address] Care Team Providers Name Role Phone Cynthia Rockwell APRN, C.N.P. Primary Care Provider [phone] Reason for Visit Reason Comments Med Refill Encounter Details Date Type Department Care Team Description 05/14/2020 Refill Division of Rheumatology in [place] Arana APRN, Med Refill [place], [place] C.N.P. [address] [facility] [address] [place] [address] [place] [address] [phone] (Wo rk) Social History Tobacco Use Types [...] or relatives? How often do you attend christianity or 1 to 4 times per year 09/01 buddhist services? Do you belong to any clubs or No 09/18/2018 organizations such as christianity groups, unions, fraternal or athletic groups, or [...] this encounter Miscellaneous Notes Telephone Encounter - Chloé Cifuentes R.N. - 05/19/2020 8:25 AM CDT Prescription renewal request for folic acid, leflunomide (Arava) received from pharmacy. HISTORY OF PRESENT ILLNESS Last Rheum visit: 03/10/2020 with [place] Arana APRN, CAITLIN Future office visit: ordered, not yet scheduled Last monitoring labs/eye exam: 03/07/2020: outside protocol parameters. WBC 2.8 Prescription request does not match current plan of care. Prescription request matches a current prescription in the Medication List. Exclusion criteria:None ASSESSMENT/PLAN Prescription request pended for provider review due to abnormal labs. documented in this encounter Plan of Treatment Upcoming Encounters Date Type Specialty Care Team Description 02/01/2022 Comprehensive Visit Family Medicine Cynthia Rockwell A PRN, C.N.P. [address] [place], [place] [phone] (Wo rk) documented as of this encounter Visit Diagnoses Diagnosis Arthritis Rheumatoid (HCC) Vietnamese Language Deficit - Primary General Medical Examination Adult Hypothyroidism Acquired Arthritis Rheumatoid (HCC) High Risk Medication History Of Falling Encounter For COVID-19 Vaccine Immunizat ion Need Vaccine Immunization Influenza Encounter For Other Screening For Malign ant Neoplasm Of Breast documented in this encounter Care Teams Tourist Agent Relationship Specialty Start Date End Date Cynthia Rockwell APRN, C.N.P. PCP - General 08/16/16 [address] [place] [address] documented as of this encounter
--- OUTSIDE RECORDS SUMMARY | 2022-01-21 23:21 | XMS_ITS | Encounter Summary ---
:1955 Author Organization [facility] Address [address] [place] [address] Care Team Providers Name Role Phone Cynthia Rockwell APRN, C.N.P. Primary Care Provider Reason for Visit Reason Comments COVID Inquiry Encounter Details Date Type Department Care Team Description 04/13/2020 Clinical Communication Department of [facility] Rockwell, COVID Inquiry [facility] [place] SOHAN, C.N.PShelton [facility], in [place], [address] [address] [place], [place] [phone] [address] (Work) [phone] Social History Tobacco Use Types Packs/Day Years [...] this encounter Miscellaneous Notes Telephone Encounter - Marion Wolf - 04/13/2020 12:06 PM CST What is the purpose of the call?: Standard Appointment Process Standard Appointment Process Have you tested positive for COVID-19 in the last 20 days OR do you have a pending COVID-19 test because you had symptoms?: No, neither apply What region is the appointment being requested?: Less than 20 days [facility], [facility] or [facility] In the past 14 days are any of the following symptoms new to you and not related to an existing health condition?: No symptoms noted In the past 14 days have you had close contact* with a person who has a LABORATORY CONFIRMED case ofCOVID-19?: No exposure noted, follow appt process (End Screening) Testing Recommendation Endpoint Is testing recommended? : Not recommended to test Plan: Endpoint recommendation: Followed regional [facility]TG *Reminder if sending patient for testing in [facility] or [facility], route encounter to the correct testing pool. L AND DINING ROOM CASHIER documented in this encounter Plan of Treatment Upcoming Encounters Date Type Specialty Care Team Description 02/01/2022 Comprehensive Visit Family Medicine Cynthia Rockwell A PRN, C.N.P. [address] [place] [phone] (Wo rk) documented as of this encounter Visit Diagnoses Not on filedocumented in this encounter Care Teams Associate Designer Relationship Specialty Start Date End Date Cynthia Rockwell APRN, C.N.P. PCP - General 08/16/16 [address] [place] [address] documented as of this encounter
--- OUTSIDE RECORDS SUMMARY | 2022-01-21 23:21 | XMS_ITS | Encounter Summary ---
:1955 Author Organization [facility] Address [address] [place] [address] Care Team Providers Name Role Phone Moiz Cynthia Taylor APRN, C.N.P. Primary Care Provider [phone] Encounter Details Date Type Department Care Team Description 06/21/2020 Orders Only [facility] SEM[facility] PCP [facility] Sa isidro Kang M.D. [address] [place], [place] [phone] (Wo rk) Social History Tobacco Use Types [...] 1 to 4 times per year 09/01 pentecostal services? Do you belong to any clubs [...] Rockwell A PRN, C.N.P. [address] [place], [place] [phone] (Wo rk) documented as of this encounter Visit Diagnoses Not on filedocumented in this encounter Care Teams Architectural Project Manager Relationship Specialty Start Date End Date Cynthia Rockwell APRN, C.N.P. PCP - General 08/16/[address], [place] [address] documented as of this encounter
--- OUTSIDE RECORDS SUMMARY | 2022-01-21 23:21 | XMS_ITS | Encounter Summary ---
:1955 Author Organization [facility] Address [address] [place] [address] Care Team Providers Name Role Phone Cynthia Rockwell APRN, C.N.P. Primary Care Provider [phone] Reason for Visit Reason Comments Med Refill Encounter Details Date Type Department Care Team Description 09/14/2020 Refill Division of Rheumatology in [place] Arana APRN, Med Refill [place], [place] C.N.P. [address] [facility] [address] [place] [address] [place] [address] [phone] (Wo rk) Social History Tobacco Use Types [...] or relatives? How often do you attend oriental orthodox or 1 to 4 times per year 09/01 congregational services? Do you belong to any clubs or No 09/18/2018 organizations such as oriental orthodox groups, unions, fraternal or athletic groups, or [...] this encounter Miscellaneous Notes Telephone Encounter - Tianna Ma R.N. - 09/16/2020 12:59 PM CDT Prescription renewal request for diclofenac received from pharmacy. HISTORY OF PRESENT ILLNESS Last Rheum visit: 03/10/20 with [place] Arana APRN, CAITLIN Future office visit: ordered, not yet scheduled Last monitoring labs/eye exam: Not required. Prescription request matches current plan of care. Prescription request matches a current prescription in the Medication List. Exclusion criteria: NSAID ASSESSMENT/PLAN Prescription request denied. Contacted [facility] and they have script on file from 08/15/20. documented in this encounter Plan of Treatment Upcoming Encounters Date Type Specialty Care Team Description 02/01/2022 Comprehensive Visit Family Medicine Cynthia Rockwell A PRN, C.N.P. [address] [place], [place] [phone] (Wo rk) documented as of this encounter Visit Diagnoses Diagnosis Arthritis Rheumatoid (HCC) Malian Language Deficit - Primary General Medical Examination Adult Hypothyroidism Acquired Arthritis Rheumatoid (HCC) High Risk Medication History Of Falling Encounter For COVID-19 Vaccine Immunizat ion Need Vaccine Immunization Influenza Encounter For Other Screening For Malign ant Neoplasm Of Breast documented in this encounter Care Teams Lamp Shade Maker Relationship Specialty Start Date End Date Cynthia Rockwell APRN, C.N.P. PCP - General 08/16/16 [address] [place] [address] documented as of this encounter
--- OUTSIDE RECORDS SUMMARY | 2022-01-21 23:21 | XMS_ITS | Encounter Summary ---
:1955 Author Organization [facility] Address [address] [place] [address] Care Team Providers Name Role Phone Cynthia Rockwell APRN, C.N.P. Primary Care Provider [phone] Reason for Visit Reason Comments Dizziness Arthritis swollen and pain in knuckles Appointment Request (Routine) - Closed Specialty Diagnoses / Procedures Referred By Contact Refer red To Contact Family Medicine Referral ID Status Reason Start Date Expiration Date Visits Requ ested Visits Authorized [id number] Closed 04/13/2020 04/13/2021 1 1 Encounter Details Date Type Department Care Team Description 04/20/2020 Office Visit Department of Family Cynthia Rockwell, López hritis Rheumatoid (HCC) (Primary Dx); Medicine, [place] PARRY C.N.PShelton Tongan Language Deficit; Clinic, in [place], [address] High Risk Medication; [place], [place] Pain Low Back; [address] [address] Dizziness; [place], [place] [phone] Need Vaccine I mmunization Influenza [address] (Work) [phone] Social History Tobacco Use Types Packs/Day Years [...] or relatives? How often do you attend yazidi or 1 to 4 times per year 09/01 jewish services? Do you belong to any clubs or No 09/18/2018 organizations such as yazidi groups, unions, fraternal or athletic groups, or [...] Sign Reading Time Taken Comments Blood Pressure 98/64 04/20/2020 11:09 AM FLEET DIRECTOR Pulse 72 04/20/2020 11:09 AM FLEET DIRECTOR Temperature 36.9 ??C (98.4 ??F) 04/20/2020 11:09 AM FLEET DIRECTOR Respiratory Rate - - Oxygen Saturation - - Inhaled Oxygen Concentration - - Weight 77 kg (169 lb 12.1 oz) 04/20/2020 11:09 AM FLEET DIRECTOR Height 153 cm (5' 0.24) 04/20/2020 11:09 AM FLEET DIRECTOR Body Mass Index 32.89 04/20/2020 11:09 AM FLEET DIRECTOR documented in this encounter Patient Instructions Patient InstructionsCynthia Rockwell APRN, C.N.P. - 04/20/2020 11:00 AM FLEET DIRECTOR Take acetaminophen every 4-6 hours as needed for pain. T DIRECTOR documented in this encounter Progress Notes Cynthia Rockwell APRN, C.N.P. - 04/20/2020 11:00 AM CST SUBJECTIVE CHIEF COMPLAINT: Chief Complaint Patient presents with ??? Dizziness ??? Arthritis swollen and pain in knuckles HISTORY OF PRESENT ILLNESS: Althea is being seen with the assistance of [place] Phone Acct Exec. She is here with her son who lives with her. She has rheumatoid arthritis and is on high risk medications. She follows with rheumatology at [facility] in [place]. She was seen on March 10. She has had worsening pain, especially in her hands. Infectious disease was consulted due to a past history of tuberculosis to see if shewould be a candidate for biologic medications in the future. Recommendation is if since completing LTBI therapy this patient has spent a prolonged period of time in [place] or other high prevalence area for tuberculosis consideration should be given to retreating for LTBI prior to starting biologics. They recommend directly observed therapy. She currently has 4 hours of ICHTHYOLOGY TEACHER assistance in the morning and again in the evening. She has used meclizine 25 mg as needed for dizziness in the past, she wouldlike refill. She is concerned about a urinary tract infection, she has had low back discomfort. She would like influenza immunization today. The following portions of the patient's history were reviewed and updated as appropriate: allergies,current medications, family history, medical history, social history, surgical history and problem list. OBJECTIVE LABS and DIAGNOSTICS: Results for orders placed or performed in visit on 04/20/20 Urinalysis with Microscopic if Indicated Result Value Ref Range Source Midstream Clarity Clear Clear Color Yellow Blood Negative Negative Nitrite Negative Negative Leukocyte Esterase Negative Negative Protein Negative mg/dL Glucose Negative Negative mg/dL Ketones, QI(U) Negative Negative mg/dL Bilirubin Negative Negative pH 6.0 5.0 - 8.0 Specific Leopold 1.015 1.001 - 1.035 Urobilinogen 0.2 0.2 - 1.0 mg/dL VITAL SIGNS: Temperature: [36.9 ??C] 36.9 ??C Blood Pressure: (98)/(64) 98/64 Pulse Rate: [72] 72 PHYSICAL EXAM: General: In general, the patient is pleasant and appears stated age. Skin: Without lesion. Eyes: PERRLA. EOMI intact. Fundi sharp discs. Conjunctiva and lids normal. ENT: Tympanic membranes clear bilaterally. Nasal mucosa without erythema or congestion. Mouth without erythema or exudate. Lymph Nodes: Neck supple without adenopathy, no thyromegaly. Carotid pulses are equal bilaterally. Peripheral Vessels: Femoral, dorsal, pedal and posterior tibial pulses are equal. Heart: Regular rate and rhythm without murmur. Lungs: Clear to auscultation, good inspiratory effort. Abdomen: Soft, nontender, no palpable mass, no hepatosplenomegaly. Extremities: Osteoarthritis changes in the hands with evidence of ulnar drift bilaterally. Mental Status: Alert and oriented times three. Neurologic: Deep tendon reflexes are +2 and symmetrical. ASSESSMENT / PLAN #1 Tongan Language Deficit Naartjie Phone painter foreman was utilized for today's visit. #2 Arthritis Rheumatoid (HCC) #3 High Risk Medication Advised to increase acetaminophen from every 8 hours to every 4-6 hours as needed. Vitamin-D refill provided today. Follow-up with rheumatology at [facility] in [place] as scheduled. - cholecalciferol (VITAMIN D3) 50 mcg (2,000 Unit) tablet; Take 1 tablet (2,000 Units total) by mouth daily., Starting Sat04/20/2020, Normal #4 Pain Low Back Urinalysis is negative for infection. - Urinalysis with Microscopic if Indicated #5 Dizziness Meclizine 25 mg, 1 tablet by mouth daily if needed for dizziness. - meclizine (ANTIVERT) 25 mg tablet; Take 1 tablet (25 mg total) by mouth daily as needed for dizziness., Starting Sat04/20/2020, Normal #6 Need Vaccine Immunization Influenza - influenza vaccine quad (FLUZONE/FLUARIX) (6 months and older) (PF) BILLIN minutes spent in a combination of the following activities: visit with the patient; reviewing records; interpreting test results; discussing plans with the patient and/or family; discussingand coordinating care with other team members. Learning needs assessment was performed. Tongan is not first language; used a Naartjie Phone painter foreman. Explained diagnosis and treatment plan. Through painter foreman, patient expressed understanding and was able to teach back. T DIRECTOR documented in this encounter Miscellaneous Notes Result Encounter Note - Cynthia Rockwell APRN, C.N.P. - 04/20/2020 1:14 PM FLEET DIRECTOR Urinalysis is negative. No sign of infection. T DIRECTOR documented in this encounter Plan of Treatment Upcoming Encounters Date Type Specialty Care Team Description 02/01/2022 Comprehensive Visit Family Medicine Cynthia Rockwell A PRN, C.N.P. [address] [place], [place] [phone] (Wo rk) documented as of this encounter Procedures Procedure Name Priority Date/Time Associated Comments Diagnosis URINALYSIS WITH Routine 04/20/2020 12:27 Pain Low Back Results for this MICROSCOPIC IF PM FLEET DIRECTOR procedure are in INDICATED, U the results section. documented in this encounter Results Urinalysis with Microscopic if Indicated (04/20/2020 12:27 PM FLEET DIRECTOR) athologist Signature Source Midstream 04/20/2020 FB60 12:40 PM FLEET DIRECTOR Clarity Clear Clear 04/20/2020 FB60 12:40 PM FLEET DIRECTOR Color Yellow 04/20/2020 FB60 12:40 PM FLEET DIRECTOR Comment: ----REFERENCE VALUE---- Colorless Yellow Isa Blood Negative Negative 04/20/2020 12:40 PM FLEET DIRECTOR FB60 Nitrite Negative Negative 04/20/2020 12:40 PM FLEET DIRECTOR FB60 Leukocyte Esterase Negative Negative 04/20/2020 12:[address] FB60 Protein Negative mg/dL 04/20/2020 12:40 PM FLEET DIRECTOR FB60 Comment: ----REFERENCE VALUE---- Negative Trace Glucose Negative Negative mg/dL 04/20/2020 12:40 PM FLEET DIRECTOR F B60 Ketones, QI(U) Negative Negative mg/dL 04/20/2020 12:40 PM FLEET DIRECTOR FB60 Bilirubin Negative Negative 04/20/2020 12:40 PM FLEET DIRECTOR FB60 pH 6.0 5.0 - 8.0 04/20/2020 12:40 PM FLEET DIRECTOR FB60 Specific Leopold 1.015 1.001 - 1.035 04/20/2020 12:40 PM FLEET DIRECTOR FB60 Urobilinogen 0.2 0.2 - 1.0 mg/dL 04/20/2020 12:[address] FB60 Specimen Anatomical Collection Method Collection Time Receive d Time (Source) Location / / Volume Laterality Urine (Urine, 04/20/2020 12:27 04/20/2020 Clean Catch) PM FLEET DIRECTOR 12:27 PM FLEET DIRECTOR Cynthia Rockwell APRN, C.N.P. LAB URINE ORDERABLES Performing Organization Address City/State/ZIP Code Phon e Number [facility]- [address] [place] [address] [facility] [address] [place] [address] System in [place] [address] documented in this encounter Visit Diagnoses Diagnosis Arthritis Rheumatoid (HCC) - Primary Tongan Language Deficit High Risk Medication Pain Low Back Unspecified Dizziness Need Vaccine Immunization Influenza Tongan Language Deficit - Primary General Medical Examination Adult Hypothyroidism Acquired Arthritis Rheumatoid (HCC) High Risk Medication History Of Falling Encounter For COVID-19 Vaccine Immunizat ion Need Vaccine Immunization Influenza Encounter For Other Screening For Malign ant Neoplasm Of Breast documented in this encounter Care Teams Credit Collections Rep Relationship Specialty Start Date End Date Cynthia Rockwell, SOHAN, C.N.P. PCP - General 08/16/16 [address] [address] documented as of this encounter
--- OUTSIDE RECORDS SUMMARY | 2022-01-21 23:21 | XMS_ITS | Encounter Summary ---
:1955 Author Organization [facility] Address [address] [place] [address] Care Team Providers Name Role Phone Cynthia Rockwell APRN, C.N.P. Primary Care Provider Encounter Details Date Type Department Care Team Description 07/24/2020 Orders Only Department of Family Cynthia Rockwell APR N, Medicine, [facility], C.N. P. in [facility] phyllis [address] [facility] [place] [address] [place] [address] [phone] Social History Tobacco Use Types Packs/Day Years [...] or relatives? How often do you attend buddhist or 1 to 4 times per year 09/01 lutheran services? Do you belong to any clubs or No 09/18/2018 organizations such as buddhist groups, unions, fraternal or athletic groups, or [...] Cynthia Rockwell A PRN, C.N.P. [address], [place] [phone] (Wo rk) documented as of this encounter Visit Diagnoses Not on filedocumented in this encounter Care Teams Car Painter Relationship Specialty Start Date End Date Cynthia Rockwell APRN, C.N.P. PCP - General 08/16/16 [address] [place] [address] documented as of this encounter
--- OUTSIDE RECORDS SUMMARY | 2022-01-21 23:21 | XMS_ITS | Encounter Summary ---
:1955 Author Organization [facility] Address [address] [place] [address] Care Team Providers Name Role Phone Cynthia Rockwell APRN, C.N.P. Primary Care Provider [phone] Reason for Visit Reason Comments Form Review [facility] Encounter Details Date Type Department Care Team Description 07/22/2020 Clinical Communication Department of Cynthia Rockwell Review ([facility] MedicineBrandon APRN, [place] [facility]) [facility], C.N.P. in [place], [address] [facility] [address] Social History Tobacco Use Types Packs/Day [...] or relatives? How often do you attend sikh or 1 to 4 times per year 09/01 buddhism services? Do you belong to any clubs or No 09/18/2018 organizations such as sikh groups, unions, fraternal or athletic groups, or [...] this encounter Miscellaneous Notes Telephone Encounter - Ailin Smiley - 07/26/2020 2:54 PM CDT Noted as done by patient specialists. Telephone Encounter - Ailin Smiley - 07/26/2020 7:39 AM CDT Form completed, uploaded to chart, and routed to [place] [facility] to contact [facility] for form pear picker. Telephone Encounter - Ailin Smiley - 07/22/2020 2:57 PM CDT CORRECTION OFFICER PENITENTIARY: Nate [facility] PHONE NUMBER: [phone] INFO REQUESTED: complete medical report form INSTRUCTIONS: Call Nate from [facility] to pear picker form. Requested information was emailed/faxed to BRADEN Guthrie signature/review electronically. documented in this encounter Plan of Treatment Upcoming Encounters Date Type Specialty Care Team Description 02/01/2022 Comprehensive Visit Family Medicine Cynthia Rockwell A PRN, C.N.P. [address] [place], [place] [phone] (Wo rk) documented as of this encounter Visit Diagnoses Not on filedocumented in this encounter Care Teams Vacuum Cleaner Assembler Relationship Specialty Start Date End Date Cynthia Rockwell APRN, C.N.P. PCP - General [address] [facility] [place] [address] documented as of this encounter
--- OUTSIDE RECORDS SUMMARY | 2022-01-21 23:21 | XMS_ITS | Encounter Summary ---
:1955 Author Organization [facility] Address [address] [place] [address] Care Team Providers Name Role Phone Cynthia Rockwell APRN, C.N.P. Primary Care Provider [phone] Encounter Details Date Type Department Care Team Description 12/23/2019 Orders Only Department of Family Cynthia Rockwell, Art hritis Rheumatoid Medicine, [place] SOHAN C.N.P. ([facility]) (Primary Dx) Clinic, in [place], [address] [place] [address] [place], [place] [phone] [address] (Work) [phone] Social History Tobacco Use Types Packs/Day Years [...] 1 to 4 times per year 09/01 roman catholic services? Do you belong to any clubs [...] Cynthia Rockwell A PRN, C.N.P. [address], [place] [phone] (Wo rk) documented as of this encounter Visit Diagnoses Diagnosis Arthritis Rheumatoid (HCC) - Primary Greek Language Deficit - Primary General Medical Examination Adult Hypothyroidism Acquired Arthritis Rheumatoid (HCC) High Risk Medication History Of Falling Encounter For COVID-19 Vaccine Immunizat ion Need Vaccine Immunization Influenza Encounter For Other Screening For Malign ant Neoplasm Of Breast documented in this encounter Care Teams Log Hauler Relationship Specialty Start Date End Date Cynthia Rockwell APRN, C.N.P. PCP - General 08/16/16 [address] [place] [address] documented as of this encounter
--- OUTSIDE RECORDS SUMMARY | 2022-01-21 23:21 | XMS_ITS | Encounter Summary ---
:1955 Author Organization [facility] Address [address] [place] [address] Care Team Providers Name Role Phone Cynthia Rockwell APRN, C.N.P. Primary Care Provider [phone] Encounter Details Date Type Department Care Team Description 01/06/2020 Clinical Communication Department of [facility] [place] Cnadis Santana [facility], in [place] [address] [address] [address] [place], [place] [phone] [address] (Work) [phone] Social History Tobacco Use Types Packs/Day Years [...] or relatives? How often do you attend mormonism or 1 to 4 times per year 09/01 jew services? Do you belong to any clubs or No 09/18/2018 organizations such as mormonism groups, unions, fraternal or athletic groups, or [...] this encounter Miscellaneous Notes Telephone Encounter - Max Payne M.D. - 01/06/2020 4:57 PM OPHTHALMIC LENS INSPECTOR Please contact patient through her son. Review sedimentation rate. Review our conversation with . HALMIC LENS INSPECTOR documented in this encounter Plan of Treatment Upcoming Encounters Date Type Specialty Care Team Description 02/01/2022 Comprehensive Visit Family Medicine Cynthia Rockwell, Kuldip EUBANKS, C.N.P. [address], [place] [phone] (Wo rk) documented as of this encounter Visit Diagnoses Not on filedocumented in this encounter Care Teams Patient Service Specialist Relationship Specialty Start Date End Date Cynthia Rockwell SENIOR CONTROLS TECHNICIAN, C.N.P. PCP - General 08/16/16 [address] [address] documented as of this encounter
--- OUTSIDE RECORDS SUMMARY | 2022-01-21 23:21 | XMS_ITS | Encounter Summary ---
:1955 Author Organization [facility] Address [address] [place] [address] Care Team Providers Name Role Phone Cynthia Rockwell APRN, C.N.P. Primary Care Provider [phone] Reason for Referral Outpatient (Routine) - Closed Specialty Diagnoses / Procedures Referred By Contact Refer red To Contact Infectious Diseases Diagnoses Arthritis Rheumatoid (HCC) Tuberculosis Perry Arana, [facility] Procedures Infectious Diseases - Screening and management of latent TB eConsult SOHAN, C.N.P. [address] [place] [address] Referral ID Status Reason Start Date Expiration Date Visits Requ ested Visits Authorized [id number] Closed 03/10/2020 03/10/2021 1 1 OR PARALEGAL Outpatient (Routine) - Closed Specialty Diagnoses / Procedures Referred By Contact Refer red To Contact Rheumatology Perry Arana APR N, C.N.P. [address] [phone] Referral ID Status Reason Start Date Expiration Date Visits Requ ested Visits Authorized [id number] Closed 03/10/2020 03/10/2021 1 1 OR PARALEGAL Reason for Visit Outpatient (Routine) - Closed Specialty Diagnoses / Procedures Referred By Contact Refer red To Contact Rheumatology Perry Arana APR N, C.N.P. [address] [phone] Referral ID Status Reason Start Date Expiration Date Visits Requ ested Visits Authorized [id number] Closed 11/06/2019 11/05/2020 1 1 Encounter Details Date Type Department Care Team Description 03/10/2020 Office Visit Division of Perry Arana, Arthritis R heumatoid (HCC) (Primary Dx); Rheumatology in PURIFICATION SUPERVISOR, C.N.P. Tuberculosis [place], [place] 200 [facility] 200 [place] [address] [phone] Social History Tobacco Use Types Packs/Day Years [...] or relatives? How often do you attend mosque or 1 to 4 times per year 09/01 hinduism services? Do you belong to any clubs or No 09/18/2018 organizations such as mosque groups, unions, fraternal or athletic groups, or [...] Progress Notes Perry Arana, SOHAN, C.N.P. - 03/10/2020 2:00 PM CST SUBJECTIVE CHIEF COMPLAINT / REASON FOR VISIT Althea Arias is a 65 y.o. female who presents for follow up of rheumatoid arthritis. The entirety of this visit was with the assistance of a V[employer] trained stunt woman. HISTORY OF PRESENT ILLNESS This is a patient who was previously followed by Dr. Alvarez, Dr. Monzon, Patrice Velez, and myself. She has had active rheumatoid [...] certain areas being much more problematic including left hip and chest as well as shoulders. She continues medications as prescribed. Prednisone currently one tablet daily. Previous Reports Reviewed:historical medical records, lab reports and office notes The following portions of the patient's history were reviewed and updated as appropriate: allergies,current medications, medical history and problem list. REVIEW OF SYSTEMS Pertinent positives and negatives as documented in the above history of present illness. REVIEW OF SYSTEMS PHYSICAL EXAM Vitals signs reviewed. Constitutional Appearance: She is well-developed. Eyes Pupils: Pupils are equal, round, and reactive to light. Neck Musculoskeletal: Normal range of motion. Cardiovascular Rate and Rhythm: Normal rate and regular rhythm. Pulmonary Effort: Pulmonary effort is normal. Breath sounds: Normal breath sounds. Abdominal Palpations: Abdomen is soft. Tenderness: There is no abdominal tenderness. Musculoskeletal Comments: Widespread tenderness in both joints and muscles today. Most tender over the shoulders. No distinct synovitis noted on clinical exam today. She does have changes of osteoarthritis in the hands. There is evidence of ulnar drift in the hands bilaterally. Knees are cool without effusion. Some fullness over the forefoot bilaterally with associated tenderness. Skin General: Skin is warm and dry. Findings: No rash. Comments: Healing incisions over the right first and second digits. She continues to have nodules present in the hands. These have not changed in size. Neurological Mental Status: She is alert and oriented to person, place, and time. Lab: Labs completed prior to visit were reviewed. Inflammatory markers including sedimentation rate and C reactive protein are both mildly elevated. Disease Activity ASSESSMENT / PLAN #1 Arthritis Rheumatoid (HCC) #2 Nodule Rheumatoid (HCC) She will continue with current program which includes methotrexate, leflunomide, folic acid, and low-dose prednisone 5 mg daily. We will not increase the prednisone as she describes increased dizzinessassociated with dose increase. 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 This was sometime after 2005 and before 2009. I will send an eConsult to Infectious Disease in hopes that they can comment on whether biologic medications would be an option in the future if needed. I do not think they are needed today. #3 Primary Osteoarthritis Knee Bilateral She has had injections in the past. #4 Fibromyalgia We discussed this at length again today. She is certainly more bothered by pain related to this diagnosis today. She is significantly tender through her upper extremities. PATIENT EDUCATION Ready to learn, no apparent learning barriers were identified; learning preferences include listening. Explained diagnosis and treatment plan; patient expressed understanding of the content. OR PARALEGAL documented in this encounter Plan of Treatment Upcoming Encounters Date Type Specialty Care Team Description 02/01/2022 Comprehensive Visit Family Medicine Cynthia Rockwell A PRN, C.N.P. [address] [place] [phone] (Wo rk) Scheduled Referrals Name Type Priority Associated Order Schedule Diagnoses Rheumatology office Outpatient Referral Routine E xpected: visit (clinic) 11/08/2020 (Approximate), Expires: 03/10/2023 documented as of this encounter Results (ABNORMAL) CRP (C-Reactive Protein) (01/12/2021 8:37 AM JUNIOR PARALEGAL) P athologist Signature C-Reactive 18.4 (H) <=8.0 mg/L 01/12/2021 [place] Protein (CRP), 11:15 AM JUNIOR PARALEGAL P Specimen Anatomical Collection Method Collection Time Receive d Time (Source) Location / / Volume Laterality Blood (Blood, 01/12/2021 8:37 AM 01/13/20 21 Venous) JUNIOR PARALEGAL 10:20 AM JUNIOR PARALEGAL Perry Arana APRN, C.N.P. LAB BLOOD ADD-ON Performing Organization Address City/State/ZIP Code Phon e Number [facility]- [address] [place] [address] [place] [address] System in [place] [address] [facility] (ABNORMAL) Sedimentation Rate (01/12/2021 8:37 AM JUNIOR PARALEGAL) [facility] gist Method Time Signature Sedimentation 38 (H) 0 - 29 01/12/2021 [place] Rate, B mm/1 h 11:52 AM JUNIOR PARALEGAL Specimen Anatomical Collection Method Collection Time Receive d Time (Source) Location / / Volume Laterality Blood (Blood, 01/12/2021 8:37 AM 01/13/20 21 Venous) JUNIOR PARALEGAL 10:20 AM JUNIOR PARALEGAL Perry Arana APRN, C.N.P. LAB BLOOD ADD-ON Performing Organization Address City/[facility]/ZIP Code Phon e Number [facility]- [address] [place] [address] [place] [address] System in [place] [address] [facility] documented in this encounter Visit Diagnoses Diagnosis Arthritis Rheumatoid (HCC) - Primary Tuberculosis Turkmen Language Deficit - Primary General Medical Examination Adult Hypothyroidism Acquired Arthritis Rheumatoid (HCC) High Risk Medication History Of Falling Encounter For COVID-19 Vaccine Immunizat ion Need Vaccine Immunization Influenza Encounter For Other Screening For Malign ant Neoplasm Of Breast documented in this encounter Care Teams Convalescent Sitter Relationship Specialty Start Date End Date Cynthia Rockwell APRN, C.N.P. PCP - General 08/16/[address] [place] [address] documented as of this encounter
--- OUTSIDE RECORDS SUMMARY | 2022-01-21 23:21 | XMS_ITS | Encounter Summary ---
:1955 Author Organization [facility] Address [address] [place] [address] Care Team Providers Name Role Phone Cynthia Rockwell APRN, C.N.P. Primary Care Provider [phone] Reason for Visit Reason Comments Med Refill Encounter Details Date Type Department Care Team Description 10/26/2020 Refill Division of Rheumatology in Perry Arana APRN, Med Refill [place], [place] C.N.P. [address] [facility] [address] [place] [address] [place] [address] [phone] (Wo rk) Social History Tobacco Use Types [...] or relatives? How often do you attend nondenominational or 1 to 4 times per year 09/01 oriental orthodox services? Do you belong to any clubs or No 09/18/2018 organizations such as nondenominational groups, unions, fraternal or athletic groups, or [...] encounter Miscellaneous Notes Telephone Encounter - Radha Melara R.N. - 11/10/2020 8:03 AM CDT POM sent to patient. Telephone Encounter - Linn Ceballos R.N. - 11/02/2020 12:10 PM CDT Prescription renewal request for leflunomide (Arava) received from pharmacy. HISTORY OF PRESENT ILLNESS Last Rheum visit: 03/10/2020 with Perry Arana APRN, [place] Future office visit: ordered, not yet scheduled Last monitoring labs/eye exam: 09/22/2020: within protocol parameters for CBC and metabolic panel values needed. Last AST was 03/07/2020: 23 Prescription request does not match current plan of care. Prescription request matches a current prescription in the Medication List. Exclusion criteria: None ASSESSMENT/PLAN Prescription request pended for provider review due to missing monitoring labs. 30 day supply pended. and requested prescription does not match plan of care. 03/10/2020 documented in this encounter Plan of Treatment Upcoming Encounters Date Type Specialty Care Team Description 02/01/2022 Comprehensive Visit Family Medicine Cynthia Rockwell A PRN, C.N.P. [address] [phone] (Wo rk) documented as of this encounter Visit Diagnoses Diagnosis Arthritis Rheumatoid (HCC) Lithuanian Language Deficit - Primary General Medical Examination Adult Hypothyroidism Acquired Arthritis Rheumatoid (HCC) High Risk Medication History Of Falling Encounter For COVID-19 Vaccine Immunizat ion Need Vaccine Immunization Influenza Encounter For Other Screening For Malign ant Neoplasm Of Breast documented in this encounter Care Teams Driver Education Instructor Relationship Specialty Start Date End Date Cynthia Rockwell APRN, C.N.P. PCP - General 08/16/16 [address] [place] [address] documented as of this encounter
--- OUTSIDE RECORDS SUMMARY | 2022-01-21 23:21 | XMS_ITS | Encounter Summary ---
:1955 Author Organization [facility] Address [address] [place] [address] Care Team Providers Name Role Phone Cynthia Rockwell APRN C.N.P. Primary Care Provider [phone] Encounter Details Date Type Department Care Team Description 01/14/2020 Clinical Communication Department of [facility], [place] Candis Santana [facility], in [place] [address] [address] [address] [place], [place] [phone] [address] (Work) [phone] Social History Tobacco Use Types Packs/Day Years [...] or relatives? How often do you attend mandaeism or 1 to 4 times per year 09/01 denominational services? Do you belong to any clubs or No 09/18/2018 organizations such as mandaeism groups, unions, fraternal or athletic groups, or [...] Telephone Encounter - Max Payne M.D. - 01/15/2020 2:30 PM CONTROL CABINET ASSEMBLER They have not heard from Rheumatology about an upcoming appointment. We have given them the phone number for the Rheumatology appointment desk so that this can be scheduled. I have sent a prescription for massage therapy 1 to 2 times a week for up to 8 weeks. This prescription was sent in the form of a letter to their home. They will contact us if we can be of additional assistance. Max Payne M.D. ROL CABINET ASSEMBLER Telephone Encounter - Adriana Padgett R.M.A. - 01/14/2020 1:59 PM CST Patients son questioned about a letter in regards to a massage? Did you discuss with her on the visit from 12/30. ROL CABINET ASSEMBLER Telephone Encounter - Yennifer Astudillo - 01/14/2020 1:52 PM CST Reason for Communication: Patient's son, Erika, called on his mother's behalf to ask about the letter she had requested when she saw Dr. Payne on 12/30 to have a message for her body pains. He said she has not received anything yet Current Can Nursing/Provider leave a detailed message?: yes Did the patient refuse triage through Nurse line? (for symptom based concerns): na Action Needed: please advise Name of Medication (if relevant): ROL CABINET ASSEMBLER documented in this encounter Plan of Treatment Upcoming Encounters Date Type Specialty Care Team Description 02/01/2022 Comprehensive Visit Family Medicine Cynthia Rockwell, Kuldip PRN, C.N.P. [address] [place] [phone] (Wo rk) documented as of this encounter Visit Diagnoses Not on filedocumented in this encounter Care Teams Toilet Products Molder Relationship Specialty Start Date End Date Cynthia Rockwell, SOHAN, C.N.P. PCP - General 08/16/16 [address], [place] [address] documented as of this encounter
--- OUTSIDE RECORDS SUMMARY | 2022-01-21 23:22 | XMS_ITS | Encounter Summary ---
:1955 Author Organization [facility] Address [address] [place] [address] Care Team Providers Name Role Phone Cynthia Rockwell APRN, C.N.P. Primary Care Provider [phone] Reason for Visit Reason Comments Med Refill Encounter Details Date Type Department Care Team Description 12/22/2019 Refill Department of Family Medicine, Christi Rockwell APRN, Med Refill [facility], in C.N.P. [place], [place] [address] [place] [address] [place], [place] [address] [phone] Social History Tobacco Use Types Packs/Day Years [...] 1 to 4 times per year 09/01 baptism services? Do you belong to any clubs [...] Cynthia Rockwell A PRN, C.N.P. [address] [place], [place] [phone] (Wo rk) documented as of this encounter Visit Diagnoses Diagnosis Hypothyroidism Acquired Iranian Language Deficit - Primary General Medical Examination Adult Hypothyroidism Acquired Arthritis Rheumatoid (HCC) High Risk Medication History Of Falling Encounter For COVID-19 Vaccine Immunizat ion Need Vaccine Immunization Influenza Encounter For Other Screening For Malign ant Neoplasm Of Breast documented in this encounter Care Teams Homicide Detective Relationship Specialty Start Date End Date Cynthia Rockwell APRN, C.N.P. PCP - General 08/16/[address], [place] [address] documented as of this encounter
--- OUTSIDE RECORDS SUMMARY | 2022-01-21 23:22 | XMS_ITS | Encounter Summary ---
:1955 Author Organization [facility] Address [address] [place] [address] Care Team Providers Name Role Phone Cynthia Rockwell APRN, C.N.P. Primary Care Provider [phone] Reason for Visit Reason Comments COVID Inquiry Encounter Details Date Type Department Care Team Description 08/11/2019 Clinical Communication Department of [employer] Christi Rockwell, COVID Inquiry [facility] [place] SOHAN, [facility], in [facility] [address] [place] [address] [place], [place] [phone] [address] (Work) [phone] Social History Tobacco Use Types Packs/Day Years [...] 1 to 4 times per year 09/01 restoration services? Do you belong to any clubs [...] this encounter Miscellaneous Notes Telephone Encounter - Allen [place] - 08/11/2019 2:30 PM CDT In the past 30 days have you had a swab for COVID that tested positive? Yes patient was tested positive on 07/14 and now is negative the appt is schedule out over 30 days from his positive test Route reply to: Scheduling Contact Number: [phone] documented in this encounter Plan of Treatment Upcoming Encounters Date Type Specialty Care Team Description 02/01/2022 Comprehensive Visit Family Medicine Cynthia Rockwell, Kuldip EUBANKS, C.N.P. [address], [place] [phone] (Wo rk) documented as of this encounter Visit Diagnoses Not on filedocumented in this encounter Additional Health Concerns Infection Onset Date Last Indicated Resolved Time [id number]: >30 days since initial test 07/15/201907/0208/24/2019 9:55 AM CDT Danay Castillo, MJesus Manuel documented as of this encounter Care Teams Site Worker Relationship Specialty Start Date End Date Cynthia Rockwell HEEL SEWER, C.N.P. PCP - General 08/16/16 [address], [place] [address] documented as of this encounter
--- OUTSIDE RECORDS SUMMARY | 2022-01-21 23:22 | XMS_ITS | Encounter Summary ---
:1955 Author Organization [facility] Address [address] [place] [address] Care Team Providers Name Role Phone Cynthia Rockwell APRN, C.N.P. Primary Care Provider [phone] Reason for Referral Outpatient (Routine) - Closed Specialty Diagnoses / Procedures Referred By Contact Refer red To Contact Diagnoses Encounter For Other Screening For Malignant Neoplasm Of Breast Cynthia Rockwell APRN, [facility] Region Procedures BI Breast Screening Bilateral C.N.P. [address] [place] [address] Referral ID Status Reason Start Date Expiration Date Visits Requ ested Visits Authorized [id number] Closed 08/18/2019 08/17/2020 1 1 Reason for Visit Reason Comments Follow-up Hypothyroidism Rheumatoid Arthritis Would like daughter to come home from [place] to help her. Appointment Request (Routine) - Closed Specialty Diagnoses / Procedures Referred By Contact Refer red To Contact Family Medicine Referral ID Status Reason Start Date Expiration Date Visits Requ ested Visits Authorized [id number] Closed 08/11/2019 08/10/2020 1 1 Encounter Details Date Type Department Care Team Description 08/18/2019 Office Visit Department of Family Cynthia Rockwell Art hritis Rheumatoid (HCC) (Primary Dx); Medicine, [place] SOHAN, C.N.P. Hypothyroidism Acquired; Clinic, in [place], [address] High Risk Medication; [place], [place] Screening Mammogram Breast C ancer; [address] [address] Screening Cancer Colon; CAREY LEONARD [phone] Encounter For Other Screening For Malignant Neoplasm Of Breast [phone] (Work) [phone] Social History Tobacco Use Types Packs/Day Years [...] or relatives? How often do you attend episcopal or 1 to 4 times per year 09/01 advent services? Do you belong to any clubs or No 09/18/2018 organizations such as episcopal groups, unions, fraternal or athletic groups, or [...] Sign Reading Time Taken Comments Blood Pressure 118/72 08/18/2019 3:34 PM CDT Pulse 72 08/18/2019 3:34 PM CDT Temperature 36.3 ??C (97.3 ??F) 08/18/2019 3:34 PM CDT Respiratory Rate - - Oxygen Saturation - - Inhaled Oxygen Concentration - - Weight 77 kg (169 lb 12.1 oz) 08/18/2019 3:34 PM CDT Height - - Body Mass Index 32.26 04/14/2019 11:20 AM LOCAL SALES ASSOCIATE documented in this encounter Patient Instructions Patient InstructionsCynthia Rockwell, SOHAN, C.N.P. - 08/18/2019 3:30 PM CDT Images from the original note were not included. Patient Education Cologuard Test: Tips for Best Results Follow all the instructions that come with your Cologuard??? test kit. You must collect and return your stool sample the way you are told. If you do not do so, your test will not be accurate. And you may need to do it again. The tips in this resource can help you do the test the right way. When you get the test kit ?? Open the kit. Read the instructions that come with it. ?? Be sure the kit contains all the items listed in the instructions. If any items are missing, callthe forensic pathologist at . ?? Be sure you know how to collect and return your stool sample. If you do not understand what you need to do, call . ?? Put a pen in the kit box so you can write on the labels. ?? Put the kit near the toilet where you and your caregivers can see it. ?? Find the expiration date printed on the outside of the kit box. Collect and return your sample before the expiration date. When you collect the sample ?? Follow the instructions that come with the kit. ?? Your stool sample should be no larger than the bottle of liquid in the kit. ?? Try not to get urine in the container when you collect your sample. ?? Do not collect a sample if you have any of these: ? Bleeding hemorrhoids ? Rectal bleeding ? Bleeding cuts or wounds on your hands ? Menstrual period ? Diarrhea When you return the sample ?? The testing lab must receive your stool sample within 3 days of when you collect it. The lab willnot test samples it receives after that time. To avoid possible weekend mail delays, ship the samplebetween Saturday and . ?? Follow the [employer] return instructions in the kit. They tell you different ways to return the kit. ?? You can have UPS roller picker the kit at your home. Or you may bring the kit to a UPS drop box or UPS office. ?? Call [employer] at to set up a home pickup or to find a drop-off location near you. If you have questions about the test or this information, call the forensic pathologist at . To watch a video that shows how to do the test, type this address into a computer web browser: [email or web address] This material is for your education and information only. This content does not replace medical advice, diagnosis or treatment. New medical research may change this information. If you have questions about a medical condition, always talk with your health care provider. ? 2019 [facility] Medical Education and Research ([facility]). All rights reserved. [id number] documented in this encounter Progress Notes Cynthia Rockwell APRN, C.N.P. - 08/18/2019 3:30 PM CDT SUBJECTIVE CHIEF COMPLAINT: Chief Complaint Patient presents with ??? Follow-up Hypothyroidism ??? Rheumatoid Arthritis Would like daughter to come home from [place] to help her. HISTORY OF PRESENT ILLNESS: Althea is here with her son who is interpreting. She has hypothyroidism. She is due for TSH. She is currently on levothyroxine 75 mcg daily. She is also due for mammogram and colon cancer screening. She follows with rheumatology at [facility] in [place] for severe rheumatoid arthritis. In May shehad steroid injections in her knees. She has follow-up scheduled again in October. She is currently on prednisone 5 mg daily and methotrexate 2.5 mg, 8 tablets weekly and Arava 20 mg daily and Cymbalta 60 mg twice daily. She is requesting a letter to have her daughter come home from [place] to care for her. Her daughter will require a travel exam salas for her and her young child. REVIEW OF SYSTEMS: A 10 system review of constitutional, cardiovascular, respiratory, musculoskeletal, endocrine, skin,HEENT, genitourinary, psychiatric and neurologic systems was obtained and is unremarkable except as noted above. The following portions of the patient's history were reviewed and updated as appropriate: allergies,current medications, family history, medical history, social history, surgical history and problem list. ALLERGIES: No Known Allergies MEDICATIONS: Current Outpatient Medications: ??? acetaminophen (TYLENOL) 500 mg tablet, Take 2 tablets (1,000 mg total) by mouth every 8 (eight) hours as needed for moderate pain or score 4-6 of 10., Disp: 100 tablet, Rfl: 11 ??? DULoxetine (CYMBALTA) [address] capsule, Take 1 capsule (60 mg total) by mouth 2 (two) times a day., Disp: 60 capsule, Rfl: 11 ??? folic acid 1 mg tablet, Take 1 tablet (1,000 mcg total) by mouth daily., Disp: 90 tablet, Rfl: 3 ??? leflunomide (ARAVA) 20 mg tablet, Take 1 tablet (20 mg total) by mouth daily., Disp: 30 tablet, Rfl: 6 ??? levothyroxine (LEVOXYL) 75 mcg tablet, Take 1 tablet (75 mcg total) by mouth daily., Disp: 90 tablet, Rfl: 3 ??? meclizine (ANTIVERT) 25 mg tablet, Take 25 mg by mouth as needed. , Disp: , Rfl: ??? methotrexate 2.5 mg tablet, Take 8 tablets (20 mg total) by mouth once a week., Disp: 32 tablet,Rfl: 5 ??? olopatadine (PATANOL) 0.1 % ophthalmic solution, Administer 1 drop into both eyes 2 (two) times a day., Disp: 5 mL, Rfl: 5 ??? omeprazole (PriLOSEC) [address] capsule, Take 1 capsule (20 mg total) by mouth every morning before breakfast., Disp: 30 capsule, Rfl: 11 ??? predniSONE (DELTASONE) 5 mg tablet, Take 1 tablet (5 mg total) by mouth daily., Disp: 90 tablet,Rfl: 3 ??? traZODone (DESYREL) 50 mg tablet, Take 1 tablet (50 mg total) by mouth at bedtime as needed for sleep., Disp: 30 tablet, Rfl: 11 ??? Tussin DM Cough and Chest 10-100 mg/5 mL syrup, TAKE 10 ML BY MOUTH EVERY 4 HOURS NEEDED FOR COUGH FOR UP TO 10 DAYS, Disp: 473 mL, Rfl: 0 OBJECTIVE LABS and DIAGNOSTICS: TSH is pending. VITAL SIGNS: Temperature: [36.3 ??C] 36.3 ??C Blood Pressure: (118)/(72) 118/72 Pulse Rate: [72] 72 PHYSICAL EXAM: General: Well-developed, well-nourished, in no acute distress. Skin: Warm and dry. HEENT: TMs clear. Throat clear. Neck: Supple. No lymphadenopathy or thyromegaly. Heart: Regular rate and rhythm. S1, S2. No murmur. Lungs: Clear to auscultation. No wheezes or rales. Abdomen: Soft, nontender. No hepatosplenomegaly. Extremities: Warm, dry. No peripheral edema. ASSESSMENT / PLAN #1 Hypothyroidism Acquired Continue levothyroxine 75 mcg daily. I will contact you if any changes in dosage need to be made. - S-TSH (Thyroid-Stimulating Hormone - Sensitive) #2 Arthritis Rheumatoid (HCC) #3 High Risk Medication Continue to follow with rheumatology at [facility] in [place]. Schedule next appointment in October. Letter provided requesting her daughter come home from [place] to care for her. #4 Screening Mammogram Breast Cancer - BI Breast Screening Bilateral #5 Screening Cancer Colon - Cologuard HEALTH MAINTENANCE: Up to date. documented in this encounter Plan of Treatment Upcoming Encounters Date Type Specialty Care Team Description 02/01/2022 Comprehensive Visit Family Medicine Cynthia Rockwell A PRN, C.N.P. [address] [phone] (Wo rk) documented as of this encounter Procedures Procedure Name Priority Date/Time Associated Diagnosis Comme nts THYROID-STIMULATIN Routine 08/18/2019 4:13 PM Hypothyroidism A cquired Results for this G CDT procedure are i n HORMONE-SENSITIVE the result s (S-TSH) section. COLOGUARD Routine 08/18/2019 3:57 PM Screening Cancer Colon Results for this CDT procedure are i n the results section. documented in this encounter Results BI Breast Screening Bilateral (08/18/2019 4:43 PM CDT) Anatomical Region Laterality Modality Breast, Breast Imaging RST LOS, Breast Imaging [facility], [address] Bilateral Mammography Imaging FLA LOS Specimen (Source) Anatomical Collection Method Collection Time Re ceived Time Location / / Volume Laterality 08/18/2019 4:46 PM CDT Impressions 08/18/2019 4:47 PM CDT Negative. RECOMMENDATION: ??Annual Screening Mammo gram ASSESSMENT: ??BI-RADS: 1: Negative. Narrative 08/18/2019 4:47 PM CDT EXAM: ??BI BREAST SCREENING BILATERAL Current study was evaluated with a Compu ter Aided Detection (CAD) system. INDICATION: ??Screening mammogram. COMPARISON: ??Prior exam(s) were availab le and reviewed for comparison. DENSITY: ??b. There are scattered areas of fibroglandular density. FINDINGS: ??No mammographic findings of malignancy. Procedure Note Kevin Pereyra M.D. - 08/18/2019Forma tting of this note might be different from the original. EXAM: BI BREAST SCREENING BILATERAL Current study was evaluated with a Compu ter Aided Detection (CAD) system. INDICATION: Screening mammogram. COMPARISON: Prior exam(s) were available and reviewed for comparison. DENSITY: b. There are scattered areas of fibroglandular density. FINDINGS: No mammographic findings of ma lignancy. IMPRESSION: Negative. RECOMMENDATION: Annual Screening Mammogr am ASSESSMENT: BI-RADS: 1: Negative. Cynthia Rockwell APRN, C.N.P. IMG BI PROCEDURES S-TSH (Thyroid-Stimulating Hormone - Sensitive) (08/18/2019 4:13 PM CDT) P athologist Signature TSH, Sensitive 4.2 0.3 - 4.2 08/18/2019 OWAT mIU/L 6:19 PM CDT Comment: Biotin has been identified by the alexsandra garciar as a potential interfering substance. ??Higher concentr ations of biotin may be found in multivitamins, hair/nail supple ments, and workout supplements. ??If the result does not ma [facility] clinical observations, repeat testing after patient refrains fr om the use of supplements for at least 12 hours. Specimen Anatomical Collection Method Collection Time Receive d Time (Source) Location / / Volume Laterality Blood (Blood, 08/18/2019 4:13 PM 08/18/19 20 5:56 Venous) CDT PM CDT Cynthia Rockwell APRN, C.N.P. LAB BLOOD ADD-ON Performing Organization Address City/State/ZIP Code Phon e Number [facility]- [address] [place] [address] [place] [address] System in [place] [address] Cologuard (08/18/2019 3:57 PM CDT) [facility] Method Time Signature Result Sample Could Not Applicable 09/23/2019 EXLI Not Be 12:46 AM CDT Processed 10 Comment: The specimen received by the laboratory was not acceptable for testing. TEST TYPE: Composite algorithmic analysi s of stool DNA-biomarkers with hemoglobin immunoass ay. ??Quantitative values of individual biomarkers are not reportable and are not associated with individual biomarker result reference ranges. PRECAUTIONS AND LIMITATIONS: Cologuard i s intended for colorectal cancer screening of adults of either sex, 45 years or older, who are at average-risk for colorectal cancer (CRC). Cologuard has been approve d for use by the U.S. FDA. Cologuard may produce a false negative or false positive result. A negative Cologuard te st result does not guarantee the absence of CRC or advanced adenoma (pre-cancer). Patients with a negative C ologuard test result should be advised to continue par ticipating in a colorectal cancer screening program. The screening interval for Cologuard is currently recommended a t an interval of every 3 years by the [place] [employer] and U.S. Multi-Society Task Force. A false positi ve result occurs when Cologuard produces a positive resul t, even though a colonoscopy may not find colorectal canc er or precancerous polyps. The performance of Cologuard has been established in a cross sectional study (i.e., single point in time) of average-risk adults aged 50-84. Cologuar d performance in patients ages 45 to 49 years was estimat ed by sub-group analysis of near-age groups. Cologuard p erformance data in a 10,000 patient pivotal study using col onoscopy as the reference method can be accessed at the following location: www.Simple [email or web address].Crowdbaron/results. Additional de scription of the Cologuard test process, warnings and pre cautions can be found at www.cologuardtest.com. Rx only. Specimen Anatomical Collection Method Collection Time Receive d Time (Source) Location / / Volume Laterality Stool (Stool) 08/18/2019 3:57 PM 09/22/19 20 6:54 CDT PM CDT Cynthia Rockwell APRN C.N.P. LAB BODY FLUIDS AND STOOLS ORDERABLES Performing Organization Address City/State/ZIP Code Phon e Number [facility] [address] [place] [address] [place] [address] Laboratories [address] [facility], [address] documented in this encounter Visit Diagnoses Diagnosis Arthritis Rheumatoid (HCC) - Primary Hypothyroidism Acquired High Risk Medication Screening Mammogram Breast Cancer Screening Cancer Colon Encounter For Other Screening For Malign ant Neoplasm Of Breast Encounter For Other Screening For Malign ant Neoplasm Of Breast Chinese Language Deficit - Primary General Medical Examination Adult Hypothyroidism Acquired Arthritis Rheumatoid (HCC) High Risk Medication History Of Falling Encounter For COVID-19 Vaccine Immunizat ion Need Vaccine Immunization Influenza Encounter For Other Screening For Malign ant Neoplasm Of Breast documented in this encounter Additional Health Concerns Infection Onset Date Last Indicated Resolved Time [id number]: >30 days since initial test 07/15/201907/0208/24/2019 9:55 AM CDT Danay Castillo M.D. documented as of this encounter Care Teams Retrimmer Relationship Specialty Start Date End Date Cynthia Rockwell APRN, C.N.P. PCP - General 08/16/[address], [place] [address] documented as of this encounter
--- OUTSIDE RECORDS SUMMARY | 2022-01-21 23:22 | XMS_ITS | Encounter Summary ---
:1955 Author Organization [facility] Address [address] [place] [address] Care Team Providers Name Role Phone Cynthia Rockwell APRN, C.N.P. Primary Care Provider Encounter Details Date Type Department Care Team Description 08/04/2019 Clinical Communication Department of [facility] Rockwell, Medicine, [place] SOHAN, C.N.P. [facility], in [facility] [address] [place] [address] [place], [place] [phone] [address] (Work) [phone] Social History Tobacco Use Types Packs/Day Years [...] 1 to 4 times per year 09/01 yazdanism services? Do you belong to any clubs [...] this encounter Miscellaneous Notes Telephone Encounter - Courtney Woodward L.P.N. - 08/05/2019 2:14 PM CDT SUBJECTIVE CHIEF COMPLAINT / REASON FOR CALL No chief complaint on file. PLAN The following information was provided: Notified Althea covid test was negative Information/Education: patient/caller able to teach back The following references were used: provider Cynthia Rockwell Telephone Encounter - Ramandeep Holley - 08/04/2019 11:41 AM CDT Reason for Communication: Patient calling for the COVID test results. Please call patient. Current Can Nursing/Provider leave a detailed message: Did the patient refuse triage through Nurse line? (for symptom based concerns): Action Needed: phone call Name of Medication (if relevant): documented in this encounter Plan of Treatment Upcoming Encounters Date Type Specialty Care Team Description 02/01/2022 Comprehensive Visit Family Medicine Cynthia Rockwell A PRN, C.N.P. [address], [place] [phone] ( rk) documented as of this encounter Visit Diagnoses Not on filedocumented in this encounter Additional Health Concerns Infection Onset Date Last Indicated Resolved Time [id number]: >30 days since initial test 07/15/201907/0208/24/2019 9:55 AM CDT Danay Castillo, Candis documented as of this encounter Care Teams Oracle Applications Analyst Relationship Specialty Start Date End Date Cynthia Rockwell APRN, C.N.P. PCP - General 08/16/16 [address] [place] [phone] documented as of this encounter
--- OUTSIDE RECORDS SUMMARY | 2022-01-21 23:22 | XMS_ITS | Encounter Summary ---
:[address] [facility] Address [address] [place] [address] Care Team Providers Name Role Phone Cynthia Rockwell APRN, C.N.P. Primary Care Provider [phone] Encounter Details Date Type Department Care Team Description 08/19/2019 Orders Only Department of Family Cynthia Rockwell, Hyp othyroidism Acquired Medicine, [place] SOHAN C.N.P. (Primary Dx) Clinic, in [place], [address] [place] [address] [place], [place] [phone] [address] (Work) [phone] Social History Tobacco Use Types Packs/Day Years [...] 1 to 4 times per year 09/01 islam services? Do you belong to any clubs [...] Cynthia Rockwell A PRN, C.N.P. [address] [place], [place] [phone] (Wo rk) documented as of this encounter Visit Diagnoses Diagnosis Hypothyroidism Acquired - Primary Moldovan Language Deficit - Primary General Medical Examination Adult Hypothyroidism Acquired Arthritis Rheumatoid (HCC) High Risk Medication History Of Falling Encounter For COVID-19 Vaccine Immunizat ion Need Vaccine Immunization Influenza Encounter For Other Screening For Malign ant Neoplasm Of Breast documented in this encounter Additional Health Concerns Infection Onset Date Last Indicated Resolved Time [id number]: >30 days since initial test 07/15/201907/0208/24/2019 9:55 AM CDT Danay Castillo, Candis documented as of this encounter Care Teams Talent Development Specialist Relationship Specialty Start Date End Date Cynthia Rockwell GARNISHMENT SPECIALIST, C.N.P. PCP - General 08/16/16 [address] [place] [phone] documented as of this encounter
--- OUTSIDE RECORDS SUMMARY | 2022-01-21 23:22 | XMS_ITS | Encounter Summary ---
:1955 Author Organization [facility] Address [address] [place] [address] Care Team Providers Name Role Phone Cynthia Rockwell APRN, C.N.P. Primary Care Provider [phone] Reason for Referral Outpatient (Routine) - Closed Specialty Diagnoses / Procedures Referred By Contact Refer red To Contact Diagnoses Encounter For Other Screening For Malignant Neoplasm Of Breast Cynthia Rockwell APRN, [facility] Region Procedures BI Breast Screening Bilateral C.N.P. [address] [address] Referral ID Status Reason Start Date Expiration Date Visits Requ ested Visits Authorized [id number] Closed 08/18/2019 08/17/2020 1 1 Reason for Visit Outpatient (Routine) - Closed Specialty Diagnoses / Procedures Referred By Contact Refer red To Contact Diagnoses Encounter For Other Screening For Malignant Neoplasm Of Breast Cynthia Rockwell APRN, [facility] Region Procedures BI Breast Screening Bilateral C.N.P. [address] [phone] Referral ID Status Reason Start Date Expiration Date Visits Requ ested Visits Authorized [id number] Closed 08/18/2019 08/17/2020 1 1 Encounter Details Date Type Department Care Team Description 08/18/2019 Hospital Encounter Department of Cynthia Rockwell er For Other Radiology dora Taylor APRN, C.N.[place] Screening For [place], [place] [address] Malignant Neoplasm [address] [phone] Social History Tobacco Use Types Packs/Day [...] or relatives? How often do you attend hindu or 1 to 4 times per year 09/01 episcopal services? Do you belong to any clubs or No 09/18/2018 organizations such as hindu groups, unions, fraternal or athletic groups, or [...] 60 Take 1 capsule ([address] mg total) by mouth 2 capsuleIndications: (two) times a day. Fibromyalgia traZODone (DESYREL) 50 Take 1 tablet (50 mg 30 tablet 01/2020 mg tabletIndications: total) by mouth at Disturbance Sleep bedtime as needed for sleep. acetaminophen (TYLENOL) Take 2 tablets 100 tablet 04/14/1912/23/2019 500 mg (1,000 mg total) by tabletIndications: mouth every 8 Fibromyalgia (eight) hours as needed for moderate pain or score 4-6 of 10. docusate sodium (COLACE) Take 1 capsule by 0 06/0305/15/2021 100 mg capsule mouth 2 (two) times a day. folic acid 1 mg Take 1 tablet (1,000 90 tablet 3 05/13/2019 05/19/2020 tabletIndications: mcg total) by mouth Arthritis Rheumatoid daily. ([facility]) leflunomide (ARAVA) 20 Take 1 tablet (20 mg 30 tablet 6 01/202011/06/2019 mg tabletIndications: total) by mouth Arthritis Rheumatoid daily. ([facility]) levothyroxine (LEVOXYL) Take 1 tablet (75 90 tablet 3 09/1812/23/2019 75 mcg mcg total) by mouth tabletIndications: daily. Hypothyroidism Acquired meclizine (ANTIVERT) 25 Take 25 mg by mouth 0 04/20/2020 mg tablet as needed. methotrexate 2.5 mg Take 8 tablets (20 32 tablet 5 05/13/19 20 11/06/2019 tabletIndications: mg total) by mouth Arthritis Rheumatoid once a week. ([facility]) olopatadine (PATANOL) Administer 1 drop 5 mL 5 019 11/06/2019 0.1 % ophthalmic into both eyes 2 solution (two) times a day. omeprazole (PriLOSEC) 20 Take 1 capsule (20 30 capsule 11 09/18/[address] mg total) by mouth capsuleIndications: every morning before Dyspepsia breakfast. predniSONE (DELTASONE) 5 Take 1 tablet (5 mg 90 tablet 3 06/15/2020 mg tabletIndications: total) by mouth Arthritis Rheumatoid daily. ([facility]) Kervinin DM Cough and TAKE 10 ML BY MOUTH 473 mL 0 020 11/06/2019 Chest 10-100 mg/5 mL EVERY 4 HOURS syrupIndications: Cough NEEDED FOR COUGH FOR Unspecified Type UP TO 10 DAYS documented as of this encounter Plan of Treatment Upcoming Encounters Date Type Specialty Care Team Description 02/01/2022 Comprehensive Visit Family Medicine Cynthia Rockwell A PRN, C.N.P. [address] [place], [place] [phone] (Wo rk) documented as of this encounter Procedures Procedure Name Priority Date/Time Associated Comments Diagnosis BI BREAST RAD - Routine 08/18/2019 4:43 Encounter For Results fo r this SCREENING (most inpatients PM CDT Other Screening procedur e are in BILATERAL and all For Malignant the results outpatients) Neoplasm Of section. Breast documented in this encounter Results BI Breast [...] documented in this encounter Visit Diagnoses Diagnosis Encounter For Other Screening For Malign ant Neoplasm Of Breast South African Language Deficit - Primary General Medical Examination Adult Hypothyroidism Acquired Arthritis Rheumatoid (HCC) High Risk Medication History Of Falling Encounter For COVID-19 Vaccine Immunizat ion Need Vaccine Immunization Influenza Encounter For Other Screening For Malign ant Neoplasm Of Breast documented in this encounter Additional Health Concerns Infection Onset Date Last Indicated Resolved Time [id number]: >30 days since initial test 07/15/201907/02/2020 9:55 AM CDT Danay Castillo M.D. documented as of this encounter Care Teams Vamp Liner Relationship Specialty Start Date End Date Cynthia Rockwell, SOHAN, C.N.P. PCP - General 08/16/16 [address] [phone] documented as of this encounter
--- OUTSIDE RECORDS SUMMARY | 2022-01-21 23:22 | XMS_ITS | Encounter Summary ---
:1955 Author Organization [facility] Address [address] [place] [address] Care Team Providers Name Role Phone Cynthia Rockwell APRN, C.N.P. Primary Care Provider [phone] Reason for Visit Reason Comments Follow-up CFCT Encounter Details Date Type Department Care Team Description 07/29/2019 Clinical Communication Division of Germán Rodrigues Follow-up (CFCT) Internal Medicine in [place] [place], [place] [phone] [address] [facility] ([place]) [place] [address] Social History Tobacco Use Types Packs/Day Years [...] or relatives? How often do you attend methodist or 1 to 4 times per year 09/01 christian services? Do you belong to any clubs or No 09/18/2018 organizations such as methodist groups, unions, fraternal or athletic groups, or [...] this encounter Miscellaneous Notes Telephone Encounter - Rachana Vilchis R.N. - 07/31/2019 1:47 PM CDT After multiple attempts in the last two days, patient is not returning a phone call to CFCT. No CFCTteam member was able to speak with Ms. Arias to assess appropriateness for continued monitoring orrelease from CFCT program related to COVID-19 diease. The CFCT provider has been notified and a letter will be sent to the patient's home. The CFCT team is no longer following the patient for this disease. If patient were to call back with questions, the patient should be directed to contact their primary care provider. Telephone Encounter - Rachana Vilchis R.N. - 07/30/2019 4:39 PM CDT SUBJECTIVE CHIEF COMPLAINT / REASON FOR CALL Follow-up (CFCT) Information Discussed She notes she is out on a walk and is unable to verify her date of , address or MRN. She was not with her son and I asked that she call back tomorrow when he is home so we can discuss releasing her from quarantine. PLAN Disposition/Recommendation: self-care is appropriate at this time, patient encouraged to call back with questions Information/Education: patient/caller able to teach back Caller agreeable to plan of care: yes The following references were used: nursing clinical judgement documented in this encounter Plan of Treatment Upcoming Encounters Date Type Specialty Care Team Description 02/01/2022 Comprehensive Visit Family Medicine Cynthia Rockwell, Kuldip PRN, C.N.P. [address] [place] [phone] (Wo rk) documented as of this encounter Visit Diagnoses Not on filedocumented in this encounter Additional Health Concerns Infection Onset Date Last Indicated Resolved Time [id number]: >30 days since initial test 07/15/201907/0208/24/2019 9:55 AM CDT Danay Castillo M.D. documented as of this encounter Care Teams Resident Assistant Relationship Specialty Start Date End Date Cynthia Rockwell, SOHAN, C.N.P. PCP - General 08/16/16 [address] [address] documented as of this encounter
--- OUTSIDE RECORDS SUMMARY | 2022-01-21 23:22 | XMS_ITS | Encounter Summary ---
:1955 Author Organization [facility] Address [address] [place] [address] Care Team Providers Name Role Phone Cynthia Rockwell APRN, C.N.P. Primary Care Provider [phone] Encounter Details Date Type Department Care Team Description 08/31/2019 Clinical Communication Division of Perry Arana, Rheumatology in [facility], C.N.P. [place], [place] [address] [facility] [address] [place] [phone] Social History Tobacco Use Types Packs/Day Years [...] or relatives? How often do you attend judaism or 1 to 4 times per year 09/01 congregation services? Do you belong to any clubs or No 09/18/2018 organizations such as judaism groups, unions, fraternal or athletic groups, or [...] Cynthia Rockwell A PRN, C.N.P. [address], [place] [phone] (Wo rk) documented as of this encounter Visit Diagnoses Not on filedocumented in this encounter Care Teams Sonar Watchstander Relationship Specialty Start Date End Date Cynthia Rockwell APRN, C.N.P. PCP - General 08/16/[address], [place] [address] documented as of this encounter
--- OUTSIDE RECORDS SUMMARY | 2022-01-21 23:22 | XMS_ITS | Encounter Summary ---
:1955 Author Organization [facility] Address [address] [place] [address] Care Team Providers Name Role Phone Cynthia Rockwell APRN, C.N.P. Primary Care Provider [phone] Reason for Referral Outpatient (Routine) - Closed Specialty Diagnoses / Procedures Referred By Contact Refer red To Contact Rheumatology Perry Arana APR N, C.N.P. [address] [phone] Referral ID Status Reason Start Date Expiration Date Visits Requ ested Visits Authorized [id number] Closed 11/06/2019 11/05/2020 1 1 Reason for Visit Outpatient (Routine) - Closed Specialty Diagnoses / Procedures Referred By Contact Refer red To Contact Rheumatology Perry Arana APR N, C.N.P. [address] [phone] Referral ID Status Reason Start Date Expiration Date Visits Requ ested Visits Authorized [id number] Closed 05/13/2019 05/12/2020 1 1 Encounter Details Date Type Department Care Team Description 11/06/2019 Office Visit Division of Perry Arana, Arthritis R heumatoid Rheumatology in SOH[place], C.N.P. ([facility]) [address] [phone] Social History Tobacco Use Types Packs/Day Years [...] or relatives? How often do you attend adventism or 1 to 4 times per year 09/01 orthodoxy services? Do you belong to any clubs or No 09/18/2018 organizations such as adventism groups, unions, fraternal or athletic groups, or [...] Sign Reading Time Taken Comments Blood Pressure 134/82 11/06/2019 11:40 AM CDT Pulse 71 11/06/2019 11:40 AM CDT Temperature 36.4 ??C (97.5 ??F) 11/06/2019 11:40 AM CDT Respiratory Rate - - Oxygen Saturation - - Inhaled Oxygen Concentration - - Weight 77.3 kg (170 lb 4.9 oz) 11/06/2019 11:40 AM CDT Height 155.3 cm (5' 1.14) 11/06/2019 11:40 AM CDT Body Mass Index 32.03 11/06/2019 11:40 AM CDT documented in this encounter Progress Notes Perry Arana, DRUM FILLER, C.N.P. - 11/06/2019 11:15 AM CDT SUBJECTIVE CHIEF COMPLAINT / REASON FOR VISIT Althea Arias is a 64 y.o. female who presents for follow up of rheumatoid arthritis. The entirety of this visit was with the assistance of a [place] trained occupational therapy assist. HISTORY OF PRESENT ILLNESS This is a [...] certain areas being much more problematic including her back and left arm, leg, and knees. She reports perceiving symptoms of numbness inthese areas but does not report that her sensation is decreased or that she has any difficulty with walking. The pain does keep her awake at night. She reports that she is taking all of her medicationsas documented. With regards to the trazodone she reports taking this on nights when she has trouble sleeping. Previous Reports Reviewed:historical medical records, lab reports [...] light. Neck Musculoskeletal: Normal range of motion. Musculoskeletal Comments: Widespread tenderness in both joints [...] including sedimentation rate and C reactive protein further elevated. Disease Activity ASSESSMENT / PLAN #1 Arthritis Rheumatoid (HCC) #2 Nodule Rheumatoid (HCC) She will continue with current program which includes methotrexate, leflunomide, and folic acid. Prednisone taper given today. She was given prescription for omeprazole to help with gi prophylaxis. I will see her back in 3 months or sooner if concerns arise. #4 Fibromyalgia Continues to experience symptoms. Will continue to work with local provider as needed. PATIENT EDUCATION Ready to learn, no apparent learning barriers were identified; learning preferences include listening. Explained diagnosis and treatment plan; patient expressed understanding of the content. documented in this encounter Plan of Treatment Upcoming Encounters Date Type Specialty Care Team Description 02/01/2022 Comprehensive Visit Family Medicine Cynthia Rockwell A PRN, C.N.P. [address] [phone] (Wo rk) Scheduled Referrals Name Type Priority Associated Order Schedule Diagnoses Rheumatology office Outpatient Referral Routine E xpected: visit (clinic) 03/07/2020 (Approximate), Expires: 11/05/2022 documented as of this encounter Results (ABNORMAL) Creatinine with Estimated GFR (03/07/2020 12:10 PM [facility]) Analysis Performed At Patho logist Time Signature Creatinine 0.57 (L) 0.59 - 03/07/2020 [facility] 1.04 mg/dL 4:38 PM [facility] eGFR-Black/Afri >90 >=60 03/07/2020 [facility] can Iraqi mL/min/BSA 4:38 PM [facility] Comment: ----ADDITIONAL INFORMATION---- Estimated GFR calculated using the 2009 CKD_EPI creatinine equation. eGFR Non-Black/ >90 >=60 mL/min/BSA 03/07/2020 4:38 PM [facility] Comment: ----ADDITIONAL INFORMATION---- Estimated GFR calculated using the 2009 CKD_EPI creatinine equation. Specimen Anatomical Collection Method Collection Time Receive d Time (Source) Location / / Volume Laterality Blood (Blood, 03/07/2020 12:10 03/07/2020 4:08 Venous) PM [facility] PM [facility] Maisha Joaquin APRNN.P. LAB BLOOD ADD-ON Performing Organization Address City/State/ZIP Code Phon e Number [facility]- [address] [place] [address] [facility] [facility] [place] [address] System in [place] [address] AST (Aspartate Aminotransferase) (03/07/2020 12:10 PM [facility] [employer] [facility]) Patholo gist Method Time Signature Aspartate 23 8 - 43 03/07/2020 [facility] Aminotransferase U/L 4:38 PM [facility] (AST), P Specimen Anatomical Collection Method Collection Time Receive d Time (Source) Location / / Volume Laterality Blood (Blood, 03/07/2020 12:10 03/07/2020 4:08 Venous) PM [facility] PM [facility] Perry Arana APRN, Arlette.N.P. LAB BLOOD ADD-ON Performing Organization Address City/[facility]/ZIP Code Phon e Number [facility]- [address] [facility] [place] [address] [facility] [place] [address] System in [place] [address] (ABNORMAL) CRP (C-Reactive Protein) (03/07/2020 12:10 PM [facility]) P athologist Signature C-Reactive 28.1 (H) <=8.0 mg/L 03/07/2020 [facility] Protein (CRP), 4:38 PM [facility] P Specimen Anatomical Collection Method Collection Time Receive d Time (Source) Location / / Volume Laterality Blood (Blood, 03/07/2020 12:10 03/07/2020 4:08 Venous) PM [facility] PM [facility] Arlette Joaquin APRN.N.P. LAB BLOOD ADD-ON Performing Organization Address City/State/ZIP Code Phon e Number [facility]- [address] [place] [address] [facility] [place] [address] System in [place] [address] (ABNORMAL) Sedimentation Rate (03/07/2020 12:10 PM [facility] [employer] [facility]) [facility] gist Method Time Signature Sedimentation 53 (H) 0 - 29 03/07/2020 [facility] Rate, B mm/1 h 4:56 PM [facility] Specimen Anatomical Collection Method Collection Time Receive d Time (Source) Location / / Volume Laterality Blood (Blood, 03/07/2020 12:10 03/07/2020 4:08 Venous) PM [facility] PM [facility] Perry Arana APRN C.N.[place] LAB BLOOD ADD-ON Performing Organization Address City/State/ZIP Code Phon e Number [facility]- [address] [place] [address] [place] [address] System in [place] [address] (ABNORMAL) CBC with Differential, Blood (03/07/2020 12:10 PM [facility] [employer] [facility]) [facility] [employer] Method Time Signature Hemoglobin 12.7 11.6 - 03/07/2020 [facility] 15.0 g/dL 12:14 PM [facility] Hematocrit 39.3 35.5 - 03/07/2020 [facility] 44.9 % 12:14 PM [facility] Erythrocytes 4.48 3.92 - 03/07/2020 [facility] 5.13 12:14 PM [facility] x10(12)/L MCV 87.7 78.2 - 03/07/2020 [facility] 97.9 fL 12:14 PM [facility] RBC Distrib Width 14.7 12.2 - 03/07/2020 [facility] 16.1 % 12:14 PM [facility] Platelet Count 227 157 - 371 03/07/2020 [facility] x10(9)/L 12:14 PM [facility] Leukocytes 2.8 (L) 3.4 - 9.6 03/07/2020 FB[facility] x10(9)/L 12:14 PM [facility] Neutrophils 1.62 1.56 - 03/07/2020 [facility] 6.45 12:14 PM [facility] x10(9)/L Lymphocytes 0.78 (L) 0.95 - 03/07/2020 [facility] 3.07 12:14 PM [facility] x10(9)/L Monocytes 0.28 0.26 - 03/07/2020 FB60 0.81 12:14 PM [facility] x10(9)/L Eosinophils 0.10 0.03 - 03/07/2020 FB60 0.48 12:14 PM [facility] x10(9)/L Basophils 0.00 (L) 0.01 - 03/07/2020 FB60 0.08 12:14 PM [facility] x10(9)/L Specimen Anatomical Collection Method Collection Time Receive d Time (Source) Location / / Volume Laterality Blood (Blood, 03/07/2020 12:10 03/07/2020 Venous) PM [facility] 12:10 PM [facility] Perry Arana APRN, C.N.P. LAB BLOOD ADD-ON Performing Organization Address City/State/ZIP Code Phon e Number [address] [place] [address] [facility] [place] [address] [address] documented in this encounter Visit Diagnoses Diagnosis Arthritis Rheumatoid (HCC) Italian Language Deficit - Primary General Medical Examination Adult Hypothyroidism Acquired Arthritis Rheumatoid (HCC) High Risk Medication History Of Falling Encounter For COVID-19 Vaccine Immunizat ion Need Vaccine Immunization Influenza Encounter For Other Screening For Malign ant Neoplasm Of Breast documented in this encounter Care Teams Surface Supervisor Relationship Specialty Start Date End Date Cynthia Rockwell APRN, C.N.P. PCP - General 08/16/16 [address] [place] [phone] documented as of this encounter
--- OUTSIDE RECORDS SUMMARY | 2022-01-21 23:22 | XMS_ITS | Encounter Summary ---
:1955 Author Organization [facility] Address [address] [place] [address] Care Team Providers Name Role Phone Cynthia Rockwell APRN, C.N.P. Primary Care Provider [phone] Encounter Details Date Type Department Care Team Description 12/23/2019 Orders Only Department of Family Cynthia Rockwell APR N, Fibromyalgia Medicine, [facility], C.N. P. in [facility] rotary rig engine operator [address] [facility] [phone] (Wo rk) Social History Tobacco [...] or relatives? How often do you attend cheondoism or 1 to 4 times per year 09/01 yarsani services? Do you belong to any clubs or No 09/18/2018 organizations such as cheondoism groups, unions, fraternal or athletic groups, or [...] Rockwell A PRN, C.N.P. [address] [place], [place] [phone] (Wo rk) documented as of this encounter Visit Diagnoses Diagnosis Fibromyalgia Korean Language Deficit - Primary General Medical Examination Adult Hypothyroidism Acquired Arthritis Rheumatoid (HCC) High Risk Medication History Of Falling Encounter For COVID-19 Vaccine Immunizat ion Need Vaccine Immunization Influenza Encounter For Other Screening For Malign ant Neoplasm Of Breast documented in this encounter Care Teams Process Safety Specialist Relationship Specialty Start Date End Date Cynthia Rockwell APRN, C.N.P. PCP - General 08/16/16 [address], [place] [address] documented as of this encounter
--- OUTSIDE RECORDS SUMMARY | 2022-01-21 23:22 | XMS_ITS | Encounter Summary ---
:1955 Author Organization [facility] Address [address] [place] [address] Care Team Providers Name Role Phone Cynthia Rockwell APRN, C.N.P. Primary Care Provider [phone] Reason for Visit Reason Comments COVID Nurse Line Encounter Details Date Type Department Care Team Description 11/05/2019 Clinical Communication Division of Perry Arana Nurse Line Rheumatology in [place], [place] C.N.P. [address] [facility] [address] [place] [phone] Social History Tobacco Use Types Packs/Day Years [...] this encounter Miscellaneous Notes Telephone Encounter - Nereydashannon Otilia L - 11/05/2019 3:12 PM CDT ([facility] and [facility] locations only: If the patient is not having symptoms and is requesting COVID-19 Nasal Swab testing only, use the process listed in the COVID-19 Patient Requesting COVID PCR Test OTG COVID-19 [place] Patient Requesting COVID PCR Test). In the past 30 days have you had a swab for COVID that tested positive? no Route reply to: rst rhu scheduling Scheduling Contact Number: [phone] documented in this encounter Plan of Treatment Upcoming Encounters Date Type Specialty Care Team Description 02/01/2022 Comprehensive Visit Family Medicine Cynthia Rockwell, Kuldip EUBANKS, C.N.P. [address], [place] [phone] (Wo rk) documented as of this encounter Visit Diagnoses Not on filedocumented in this encounter Care Teams Ring Sorter Relationship Specialty Start Date End Date Cynthia Rockwell APRN, C.N.P. PCP - General 08/16/16 [address] [place] [phone] documented as of this encounter
--- OUTSIDE RECORDS SUMMARY | 2022-01-21 23:22 | XMS_ITS | Encounter Summary ---
:1955 Author Organization [facility] Address [address] [place] [address] Care Team Providers Name Role Phone Cynthia Rockwell APRN, C.N.P. Primary Care Provider [phone] Reason for Visit Reason Comments Med Refill Encounter Details Date Type Department Care Team Description 12/23/2019 Refill Department of Family Medicine, Christi Rockwell APRN, Med Refill [facility], in C.N.P. [place], [place] [address] [place] [address] [place], [place] [phone] Social History Tobacco Use Types Packs/Day Years [...] or relatives? How often do you attend confucianist or 1 to 4 times per year 09/01 mormonism services? Do you belong to any clubs or No 09/18/2018 organizations such as confucianist groups, unions, fraternal or athletic groups, or [...] this encounter Miscellaneous Notes Telephone Encounter - Gunjan Montes L.P.N. - 12/23/2019 4:34 PM CDT SUBJECTIVE CHIEF COMPLAINT / REASON FOR CALL Med Refill PLAN The following information was provided: Notified that Cynthia prescribed liquid tylenol and would be available at the pharmacy. Information/Education: patient/caller able to teach back The following references were used: provider Cynthia Rockwell CNP Telephone Encounter - Klaudia Smalls - 12/23/2019 2:00 PM CDT Images from the original note were not included. NEED FOR CLARIFICATION Nurse Review: Pharmacy Communication Provider: Cynthia Rockwell APRN, C.N.PShelton Medication: Pharmacy: [facility] Comment: documented in this encounter Plan of Treatment Upcoming Encounters Date Type Specialty Care Team Description 02/01/2022 Comprehensive Visit Family Medicine Cynthia Rockwell A PRN, C.N.P. [address], [place] [phone] (Wo rk) documented as of this encounter Visit Diagnoses Not on filedocumented in this encounter Care Teams Drapery Estimator Relationship Specialty Start Date End Date Cynthia Rockwell APRN, C.N.P. PCP - General 08/16/16 [address], [place] [address] documented as of this encounter
--- OUTSIDE RECORDS SUMMARY | 2022-01-21 23:22 | XMS_ITS | Encounter Summary ---
:1955 Author Organization [facility] Address [address] [place] [address] Care Team Providers Name Role Phone Cynthia Rockwell APRN, C.N.P. Primary Care Provider [phone] Encounter Details Date Type Department Care Team Description 10/30/2019 Hospital Encounter Department of Perry Arana is Rheumatoid Laboratory Medicine R, SOHAN, C.N .P. ([facility]) in [place] [address] [address] [place], [place] [phone] [address] (Work) [phone] Social History Tobacco Use Types Packs/Day Years [...] or relatives? How often do you attend worship or 1 to 4 times per year 09/01 zoroastrian services? Do you belong to any clubs or No 09/18/2018 organizations such as worship groups, unions, fraternal or athletic groups, or [...] acetaminophen (TYLENOL) Take 2 tablets 100 tablet 11 04/14/19 20 12/23/2019 500 mg tabletIndications: (1,000 mg total) by Fibromyalgia mouth every 8 (eight) hours as needed for moderate pain or score 4-6 of 10. ammonium lactate APPLY CREAM 0 09/24/2019 020 (AMLACTIN) 12 % cream TOPICALLY TO AFFECTED AREA ONCE DAILY cholecalciferol (VITAMIN Take 2,000 Units by 0 04/20/2020 D3) 2,000 Unit tablet mouth daily. docusate sodium (COLACE) Take 1 capsule by 0 06/0305/15/2021 100 mg capsule mouth 2 (two) times a day. folic acid 1 mg Take 1 tablet 90 tablet 3 05/13/20192020 tabletIndications: (1,000 mcg total) Arthritis Rheumatoid by mouth daily. (HCC) leflunomide (ARAVA) 20 mg Take 1 tablet (20 30 tablet 6 01/202011/06/2019 tabletIndications: mg total) by mouth Arthritis Rheumatoid daily. (HCC) levothyroxine (LEVOXYL) Take 1 tablet (75 90 tablet 3 09/1812/23/2019 75 mcg tabletIndications: mcg total) by mouth Hypothyroidism Acquired daily. meclizine (ANTIVERT) 25 Take 25 mg by mouth 0 04/20/2020 mg tablet as needed. methotrexate 2.5 mg Take 8 tablets (20 32 tablet 5 05/13/19 20 11/06/2019 tabletIndications: mg total) by mouth Arthritis Rheumatoid once a week. ([facility]) olopatadine (PATANOL) 0.1 Administer 1 drop 5 mL 5 05/201811/06/2019 % ophthalmic solution into both eyes 2 (two) times a day. predniSONE (DELTASONE) 5 Take 1 tablet (5 mg 90 tablet 3 06/15/2020 mg tabletIndications: total) by mouth Arthritis Rheumatoid daily. (HCC) Tussin DM Cough and Chest TAKE 10 ML BY MOUTH 473 mL 0 0 06/01/2019 11/06/2019 10-100 mg/5 mL EVERY 4 HOURS syrupIndications: Cough NEEDED FOR COUGH Unspecified Type FOR UP TO 10 DAYS documented as of this encounter Plan of Treatment Upcoming Encounters Date Type Specialty Care Team Description 02/01/2022 Comprehensive Visit Family Medicine Cynthia Rockwell, Kuldip PRN, C.N.P. [address] [place], [place] [phone] (Wo rk) documented as of this encounter Procedures Procedure Name Priority Date/Time Associated Comments Diagnosis SEDIMENTATION RATE, B Routine 10/30/2019 10:57 Arthritis Re sults for this AM CDT Rheumatoid (HCC) procedure a re in the results section. CBC WITH DIFFERENTIAL, B Routine 10/30/2019 10:57 Arthritis Results for this AM CDT Rheumatoid (HCC) procedure a re in the results section. C-REACTIVE PROTEIN Routine 10/30/2019 10:57 Arthritis Resul ts for this (CRP), S/P AM CDT Rheumatoid (HCC) procedure a re in the results section. ASPARTATE Routine 10/30/2019 10:57 Arthritis Results for this AMINOTRANSFERASE (AST), AM CDT Rheumatoid (HCC) procedure are in S/P the results section. CREATININE WITH EGFR, Routine 10/30/2019 10:57 Arthritis Re sults for this S/P AM CDT Rheumatoid (HCC) procedure a re in the results section. documented in this encounter Results (ABNORMAL) Creatinine with Estimated GFR (10/30/2019 10:57 AM CDT) Analysis Performed At Patho logist Time Signature Creatinine 0.55 (L) 0.59 - 10/30/2019 [facility] 1.04 mg/dL 1:39 PM CDT eGFR-Black/Afri >90 >=60 10/30/2019 [facility] can Syrian mL/min/BSA 1:39 PM CDT Comment: ----ADDITIONAL INFORMATION---- Estimated GFR calculated using the 2009 CKD_EPI creatinine equation. eGFR Non-Black/ >90 >=60 mL/min/BSA 10/30/2019 1:39 PM CDT [facility] Comment: ----ADDITIONAL INFORMATION---- Estimated GFR calculated using the 2009 CKD_EPI creatinine equation. Specimen Anatomical Collection Method Collection Time Receive d Time (Source) Location / / Volume Laterality Blood (Blood, 10/30/2019 10:57 10/30/2019 1:04 Venous) AM CDT PM CDT Perry Arana APRN, C.N.P. LAB BLOOD ADD-ON Performing Organization Address City/[facility]/ZIP Code Phon e Number [facility] [address] [place] [address] [place] [address] System in [place] [address] AST (Aspartate Aminotransferase) (10/30/2019 10:57 AM CDT) Patholo gist Method Time Signature Aspartate 20 8 - 43 10/30/2019 [facility] Aminotransferase U/L 1:39 PM CDT (AST), P Specimen Anatomical Collection Method Collection Time Receive d Time (Source) Location / / Volume Laterality Blood (Blood, 10/30/2019 10:57 10/30/2019 1:04 Venous) AM CDT PM CDT Perry Arana APRN, C.N.P. LAB BLOOD ADD-ON Performing Organization Address City/State/ZIP Code Phon e Number [facility]- [address] [place] [place] [address] [place] [address] System in [place] [address] (ABNORMAL) CRP (C-Reactive Protein) (10/30/2019 10:57 AM CDT) P athologist Signature C-Reactive 26.8 (H) <=8.0 mg/L 10/30/2019 [facility] Protein (CRP), 1:39 PM CDT P Specimen Anatomical Collection Method Collection Time Receive d Time (Source) Location / / Volume Laterality Blood (Blood, 10/30/2019 10:57 10/30/2019 1:04 Venous) AM CDT PM CDT Perry Arana APRN, C.N.P. LAB BLOOD ADD-ON Performing Organization Address City/State/ZIP Code Phon e Number [facility]- [address] [place] [address] [place] [address] System in [place] [address] (ABNORMAL) Sedimentation Rate (10/30/2019 10:57 AM CDT) [facility] Method Time Signature Sedimentation 50 (H) 0 - 29 10/30/2019 FB60 Rate, B mm/1 h 12:04 PM CDT Specimen Anatomical Collection Method Collection Time Receive d Time (Source) Location / / Volume Laterality Blood (Blood, 10/30/2019 10:57 10/30/2019 Venous) AM CDT 10:57 AM CDT Perry Arana APRN, C.N.P. LAB BLOOD ADD-ON Performing Organization Address City/State/ZIP Code Phon e Number [facility]- [address] [place] [address] [facility] [address] [place] [address] System in [address] (ABNORMAL) CBC with Differential, Blood (10/30/2019 10:57 AM CDT) [facility] Method Time Signature Hemoglobin 11.8 11.6 - 10/30/2019 FB60 15.0 g/dL 11:29 AM CDT Hematocrit 36.8 35.5 - 10/30/2019 FB60 44.9 % 11:29 AM CDT Erythrocytes 4.04 3.92 - 10/30/2019 FB60 5.13 11:29 AM CDT x10(12)/L MCV 91.1 78.2 - 10/30/2019 FB60 97.9 fL 11:29 AM CDT RBC Distrib Width 14.3 12.2 - 10/30/2019 FB60 16.1 % 11:29 AM CDT Platelet Count 214 157 - 371 10/30/2019 FB60 x10(9)/L 11:29 AM CDT Leukocytes 3.7 3.4 - 9.6 10/30/2019 FB60 x10(9)/L 11:29 AM CDT Neutrophils 2.38 1.56 - 10/30/2019 FB60 6.45 11:29 AM CDT x10(9)/L Lymphocytes 0.78 (L) 0.95 - 10/30/2019 FB60 3.07 11:29 AM CDT x10(9)/L Monocytes 0.43 0.26 - 10/30/2019 FB60 0.81 11:29 AM CDT x10(9)/L Eosinophils 0.09 0.03 - 10/30/2019 FB60 0.48 11:29 AM CDT x10(9)/L Basophils 0.02 0.01 - 10/30/2019 FB60 0.08 11:29 AM CDT x10(9)/L Specimen Anatomical Collection Method Collection Time Receive d Time (Source) Location / / Volume Laterality Blood (Blood, 10/30/2019 10:57 10/30/2019 Venous) AM CDT 10:57 AM CDT Perry Arana APRN, C.N.P. LAB BLOOD ADD-ON Performing Organization Address City/State/ZIP Code Phon e Number [address] [place] [address] [facility] [address] [place] [address] [address] documented in this encounter Visit Diagnoses Diagnosis Arthritis Rheumatoid (HCC) Tanzanian Language Deficit - Primary General Medical Examination Adult Hypothyroidism Acquired Arthritis Rheumatoid (HCC) High Risk Medication History Of Falling Encounter For COVID-19 Vaccine Immunizat ion Need Vaccine Immunization Influenza Encounter For Other Screening For Malign ant Neoplasm Of Breast documented in this encounter Care Teams Main Line Assembler Relationship Specialty Start Date End Date Cynthia Rockwell APRN, C.N.P. PCP - General 08/16/16 [address] [place] [address] documented as of this encounter
--- OUTSIDE RECORDS SUMMARY | 2022-01-21 23:22 | XMS_ITS | Encounter Summary ---
:1955 Author Organization [facility] Address [address] [place] [address] Care Team Providers Name Role Phone Cynthia Rockwell APRN, C.N.P. Primary Care Provider [phone] Reason for Visit Reason Comments Medical Information Encounter Details Date Type Department Care Team Description 09/14/2019 Clinical Communication Department of Cynthia Rockwell [facility] Information Family MedicineBrandon APRN, [facility], C.N.P. in Located Within [facility] [address] [address] [phone] Social History Tobacco Use Types Packs/Day Years [...] or relatives? How often do you attend hinduism or 1 to 4 times per year 09/01 worship services? Do you belong to any clubs or No 09/18/2018 organizations such as hinduism groups, unions, fraternal or athletic groups, or [...] this encounter Miscellaneous Notes Telephone Encounter - Penelope Dia L.P.N. - 09/14/2019 1:22 PM CDT SUBJECTIVE CHIEF COMPLAINT / REASON FOR CALL Medical Information Information Discussed Patient was reached via [facility] ID # [id number]. Wanting copy of letter from Cynthia Rockwell. Letter printed and sent to the lead front end developer for grape picker. PLAN Disposition/Recommendation: N/A Information/Education: patient/caller able to teach back Caller agreeable to plan of care: yes The following references were used: none Telephone Encounter - Wilfredo Jaquez - 09/14/2019 12:30 PM CDT Reason for Communication: patient called and said she lost some type of letter Moiz gave her for her daughter, she will need a new one, please advise. Current Can Nursing/Provider leave a detailed message: yes Did the patient refuse triage through Nurse line? (for symptom based concerns): Action Needed: Name of Medication (if relevant): documented in this encounter Plan of Treatment Upcoming Encounters Date Type Specialty Care Team Description 02/01/2022 Comprehensive Visit Family Medicine Cynthia Rockwell A PRN, C.N.P. [address] [place], [place] [phone] (Wo rk) documented as of this encounter Visit Diagnoses Not on filedocumented in this encounter Care Teams Circle Saw Operator Relationship Specialty Start Date End Date Cynthia Rockwell APRN, C.N.P. PCP - General 08/16/16 [address] [place] [address] documented as of this encounter
--- OUTSIDE RECORDS SUMMARY | 2022-01-21 23:22 | XMS_ITS | Encounter Summary ---
:1955 Author Organization [facility] Address [address] [place] [address] Care Team Providers Name Role Phone Cynthia Rockwell APRN, C.N.P. Primary Care Provider Reason for Visit Reason Comments Med Refill Encounter Details Date Type Department Care Team Description 11/06/2019 Refill Division of Rheumatology in Perry Arana APRN, Med Refill [place], [place] C.N.P. [address] [facility] [address] [place] [address] [place] [address] [phone] (Wo rk) Social History Tobacco Use Types [...] or relatives? How often do you attend yarsani or 1 to 4 times per year 09/01 religion services? Do you belong to any clubs or No 09/18/2018 organizations such as yarsani groups, unions, fraternal or athletic groups, or [...] this encounter Miscellaneous Notes Telephone Encounter - Lorena Wong M.A.N., R.N. - 11/13/2019 12:39 PM CDT Prescription renewal request for prilosec received from pharmacy. HISTORY OF PRESENT ILLNESS Last Rheum visit: 11/06/19 with Perry Arana APRN, [place] Future office visit: ordered, not yet scheduled Last monitoring labs/eye exam: Not required. Prescription request matches current plan of care. Prescription request matches a current prescription in the Medication List. ASSESSMENT/PLAN Prescription request renewed per nursing protocol. Pt wants prescription without OTC written on it for insurance coverage. documented in this encounter Plan of Treatment Upcoming Encounters Date Type Specialty Care Team Description 02/01/2022 Comprehensive Visit Family Medicine Cynthia Rockwell A PRN, C.N.P. [address] [place], [place] [address] (Wo rk) documented as of this encounter Visit Diagnoses Not on filedocumented in this encounter Care Teams Neuro Intensivist Physician Relationship Specialty Start Date End Date Cynthia Rockwell APRN, C.N.P. PCP - General 08/16/16 [address], [place] [address] documented as of this encounter
--- OUTSIDE RECORDS SUMMARY | 2022-01-21 23:22 | XMS_ITS | Encounter Summary ---
:1955 Author Organization [facility] Address [address] [place] [address] Care Team Providers Name Role Phone Cynthia Rockwell APRN, C.N.P. Primary Care Provider [phone] Reason for Visit Reason Onset Date Comments Outpatient COVID-19 Testing 07/31/2019 Encounter Details Date Type Department Care Team Description 07/31/2019 External Outreach Department of Michel Soto Infect ion Upper Internal Medicine in J, D.O. Respiratory (Primary [place], [place] [address] Dx) [address] [place] [phone] Social History Tobacco Use Types Packs/Day Years [...] 1 to 4 times per year 09/01 uatsdin services? Do you belong to any clubs [...] documented as of this encounter Progress Notes April Cooper R.N. - 07/31/2019 12:28 PM CDT Encounter created for the drive-through COVID-19 testing. documented in this encounter Miscellaneous Notes Result Encounter Note - Preston Banerjee M.B.B.S., M.D. - 08/01/2019 6:34 AM CDT Patient has already been followed by the CFCT and monitored for at least the initial 14 days of their SARS-CoV-2 infection. This test was not [facility] initiated. If initiated by patient, no specific follow up needed. If initiated by another health care provider, they should follow up on the result. PCR indeterminate. Based on emerging data, this patient is probably not infectious at this time. [facility] will not re-engage. documented in this encounter Plan of Treatment Upcoming Encounters Date Type Specialty Care Team Description 02/01/2022 Comprehensive Visit Family Medicine Cynthia Rockwell A PRN, C.N.P. [address] [place] [phone] (Wo rk) documented as of this encounter Procedures Procedure Name Priority Date/Time Associated Diagnosis Comme nts SARS CORONAVIRUS-2, Routine 07/31/2019 12:30 PM Infection Uppe r Results for this PCR CDT Respiratory procedure are i n the results section. documented in this encounter Results (ABNORMAL) SARS Coronavirus-2, PCR Symptomatic (07/31/2019 12:30 PM CDT) [facility] Method Time Signature SARS Swab, 08/01/2019 DTL Coronavirus- Nasopharynx 12:55 AM 2 Source CDT SARS Indeterminate Undetected 08/01/2019 DTL Coronavirus- (C) 12:55 AM 2, PCR CDT Comment: Inconclusive result for SARS-CoV-2. Tommy mmend repeat testing if clinically indicated. ----ADDITIONAL INFORMATION---- This test was developed and its performa nce characteristics determined by [facility] in a manner co nsistent with CLIA requirements. Independent review by the U.S. Food and Drug Administration is pending. Visit the CDC website: https://www.cdc.gov/coronavirus/ ?? for the most recent guidelines on Rainey virus testing. Fact Sheet for Healthcare Providers: (https://www.Brainscape/it-mmfil es/ Provider_Fact_Sheet_for_[place]_COVI D-19.pdf) Fact Sheet for Patients: (https://www.Brainscape/it-mmfil es/ Patient_Fact_Sheet_for_COVID-19.pdf) Specimen Anatomical Collection Method Collection Time Receive d Time (Source) Location / / Volume Laterality Varies 07/31/2019 12:30 07/31/2019 2:41 (Nasopharynx) PM CDT PM CDT Michel Soto D.O. LAB MICROBIOLOGY - GENERAL O RDERABLES Performing Organization Address City/State/ZIP Code Phon e Number [facility] - [address] [place], [place] [address] [facility] [place] [address] [facility] [address] documented in this encounter Visit Diagnoses Diagnosis Infection Upper Respiratory - Primary Romansh Language Deficit - Primary General Medical Examination Adult Hypothyroidism Acquired Arthritis Rheumatoid (HCC) High Risk Medication History Of Falling Encounter For COVID-19 Vaccine Immunizat ion Need Vaccine Immunization Influenza Encounter For Other Screening For Malign ant Neoplasm Of Breast documented in this encounter Additional Health Concerns Infection Onset Date Last Indicated Resolved Time [id number]: >30 days since initial test 07/15/201907/0208/24/2019 9:55 AM CDT Danay Castillo M.D. documented as of this encounter Care Teams Management Instructor Relationship Specialty Start Date End Date Cynthia Rockwell, SOHAN C.N.P. PCP - General 08/16/16 [address] [place] [address] documented as of this encounter
--- OUTSIDE RECORDS SUMMARY | 2022-01-21 23:22 | XMS_ITS | Encounter Summary ---
:1955 Author Organization [facility] Address [address] [place] [address] Care Team Providers Name Role Phone Cynthia Rockwell APRN, C.N.P. Primary Care Provider [phone] Encounter Details Date Type Department Care Team Description 07/16/2019 Virtual Visit Division of General Roman Crystal, COV ID-19 Infection; Internal Medicine in D.O. Arthritis Rheumatoid (HCC) [place], [place] [address] [facility] [place] [address] [place] [address] [phone] Social History Tobacco Use Types Packs/Day Years [...] documented as of this encounter Progress Notes Roman Crystal D.O. - 07/16/2019 2:02 PM CDT TELEPHONE COMMUNICATION NOTE: Positive COVID-19 notification This was a telephone notification to Ms. Althea Arias to notify them that their PCR test for SARS-CoV-2 (the virus that causes COVID-19) has returned positive. Unfortunately, the only way to contact the patient is via her son's cellphone. He was not with her at that time I contacted him. After discussion it was decided that he would be with her tomorrow at 9:00 a.m. and w can schedule a phone visit for that time. Importance of making sure that both the patient and the son wears mask and follow proper hand hygiene, was stressed to the son. Roman Crystal D.O. COVID-19 Frontline Care Team [facility] Non [id number], virtual visit. 10 minutes spent in total. documented in this encounter Plan of Treatment Upcoming Encounters Date Type Specialty Care Team Description 02/01/2022 Comprehensive Visit Family Medicine Cyntiha Rockwell, Kuldip EUBANKS, C.N.P. [address] [phone] (Wo rk) documented as of this encounter Visit Diagnoses Diagnosis COVID-19 Infection Arthritis Rheumatoid (HCC) Romansh Language Deficit - Primary General Medical Examination Adult Hypothyroidism Acquired Arthritis Rheumatoid (HCC) High Risk Medication History Of Falling Encounter For COVID-19 Vaccine Immunizat ion Need Vaccine Immunization Influenza Encounter For Other Screening For Malign ant Neoplasm Of Breast documented in this encounter Additional Health Concerns Infection Onset Date Last Indicated Resolved Time [id number]: >30 days since initial test 07/15/201907/0208/24/2019 9:55 AM CDT Danay Castillo, Candis documented as of this encounter Care Teams Chief Strategy Officer Relationship Specialty Start Date End Date Cynthia Rockwell, SOHAN, C.N.P. PCP - General 08/16/16 [address] [address] documented as of this encounter
--- OUTSIDE RECORDS SUMMARY | 2022-01-21 23:22 | XMS_ITS | Encounter Summary ---
:1955 Author Organization [facility] Address [address] [place] [address] Care Team Providers Name Role Phone Cynthia Rockwell APRN, C.N.P. Primary Care Provider [phone] Reason for Visit Appointment Request (Routine) - Closed Specialty Diagnoses / Procedures Referred By Contact Refer red To Contact General Internal Medicine Referral ID Status Reason Start Date Expiration Date Visits Requ ested Visits Authorized [id number] Closed 07/16/2019 07/15/2020 1 1 Encounter Details Date Type Department Care Team Description 07/17/2019 Virtual Visit Division of General Roman Crystal COV ID-19 Infection; Internal Medicine in D.O. Arthritis Rheumatoid (HCC) [place], [place] [address] [facility] [address] [place] [phone] Social History Tobacco Use Types Packs/Day Years [...] or relatives? How often do you attend confucianism or 1 to 4 times per year 09/01 catholic services? Do you belong to any clubs or No 09/18/2018 organizations such as confucianism groups, unions, fraternal or athletic groups, or [...] encounter Progress Notes Roman Crystal D.O. - 07/17/2019 9:00 AM CDT Images from the original note were not included. TELEPHONE COMMUNICATION NOTE: Positive COVID-19 notification This was a telephone notification to Ms. Arias to notify them that their PCR test for SARS-CoV-2 (the virus that causes COVID-19) has returned positive. The patient was interviewed, but not personally examined. Currently Ms. Arias has the following symptoms: ??? None ??? Date of symptom onset 07/15/2019 ??? Since onset, symptoms have improved Ms. Arias has the following risk factors for severe infection: ??? Other immune compromised condition and rheumatid arthritis w/ high risk medicine. Risk Factors for Severe Infection w/ COVID-19 Current as of about an hour ago 1 0 - 2 Points: Low Risk 3 - 5 Points: Medium Risk >= 6 Points: High Risk The previous score was 2 on 06/18/2019.: Last Change: Details Returns the total points for all positive risk factors for severe infection with COVID-19 Points Metrics 1 Age: 64 Current as of about an hour ago 0 Sex: Female Current as of about an hour ago 0 Has Hypertension: No Current as of about an hour ago 0 Has Congestive Heart Failure: No Current as of about an hour ago 0 Has Congenital Heart Disease: No Current as of about an hour ago 0 Has Coronary Artery Disease: No Current as of about an hour ago 0 Has Chronic Lung Disease or Asthma: No Current as of about an hour ago 0 Has Diabetes: No Current as of about an hour ago 0 Patient is Immune Compromised: No Current as of about an hour ago 0 Jail Patient: No Current as of about an hour ago 0 COVID-19 Component - End State Renal Disease: 0 Current as of about an hour ago 0 Chronic Liver Disease Registry: No Current as of about an hour ago 0 : No Current as of about an hour ago ??? Ms. Arias has been in the following facilities in the last 14 days: ??? None Employee status: The patient is not associated with an employee at the [facility] Household members: son, Employment: n/a PROBLEM LIST Patient Active Problem List Diagnosis ??? Arthritis Rheumatoid (HCC) ??? Primary Osteoarthritis Knee Bilateral ??? Dyspepsia ??? Hypothyroidism Acquired ??? Osteopenia ??? High Risk Medication ??? Nodule Rheumatoid (HCC) ??? Fibromyalgia ??? Functional Incontinence Urinary ??? Disturbance Sleep RESULTS Microbiology Results (last 10 days) Procedure Component Value - Date/Time SARS Coronavirus-2, PCR [[id number]] (Abnormal) Collected: 07/15/19 1229 Lab Status: Final result Specimen: Varies from Nasopharynx Updated: 07/15/19 0005 SARS Coronavirus-2 Source Swab, Nasopharynx SARS Coronavirus-2, PCR Detected Comment: SARS-CoV-2 RNA present. ----ADDITIONAL INFORMATION---- This test was developed and its performance characteristics determined by [facility] in a manner consistent with CLIA requirements. Independent review by the U.S. Food and Drug Administration is pending. Visit the CDC website: https://www.cdc.gov/coronavirus/ for the most recent guidelines on Coronavirus testing. Fact Sheet for Healthcare Providers: (https://www.Cmed/it-mmfiles/ Provider_Fact_Sheet_for_[facility]_COVID-19.pdf) Fact Sheet for Patients: (https://www.Cmed/it-mmfiles/ Patient_Fact_Sheet_for_COVID-19.pdf) ASSESSMENT/PLAN #1 COVID-19 disease STAR patient: No Recommendations: Low Risk non-Yoruba, non-Namibian speaking patient. Patient will follow up with [facility] CFCT nursing only. ??? Ms. Arias was advised to continue to monitor their symptoms including dyspnea, chest pain, cough, fevers, lightheadedness/dizziness and vomiting/diarrhea. o If symptoms are worsening, please contact the [facility] CFCT nursing team at [phone]. o If directed to the Emergency Room or other care facility, the patient was reminded to - Inform EMS of positive COVID result and wear a mask prior to EMS arrival if available. - If patient is well enough to transport themselves to the emergency room, they should drive themselves (not use taxi, ride-share or public transport). ??? We strongly recommend continuing self-isolation until advised otherwise. o Ms. Arias is aware that they need to: - Remain at home unless requiring medical care - Separate themselves from other people in the home - Avoid sharing personal household items - Clean and disinfect 'high-touch' surfaces daily - Wear a facemask when around other people and cover coughs/sneezes - Practice good hand hygiene - Avoid touching your eyes, nose, and mouth ??? Self-isolation will need to be continued for at least 14 days from symptom onset with at least 72 hours of respiratory symptom (cough and dyspnea) improvement and fever resolution w/o use of anti-pyretics (Tylenol, NSAIDs). o Testing prior to release from isolation is recommended in select cases. o The patient was also advised to follow final recommendations as per local public health department/occupational health if relevant. ??? Advised to contact their employer's occupational health division to notify them of positive test ??? Recommend self isolation for all household members/close contacts. o If any of these individuals are immunocompromised or have serious chronic medical conditions, please have them contact their primary care physician to let them know they have been exposed to close contact with COVID-19 o If unwell, recommend contacting their health care provider. Presenting directly to of the ED can be considered in the case of severe symptoms. o These individuals should call ahead to minimize wait times. The [facility] COVID Triage Line can be reached at [phone]. ??? Ms. Arias was advised that COVID-19 is a notifiable disease and that [facility]. ??? A registered nurse from our team will contact you within the next 24 hours to introduce the roleof monitoring and provide additional education. ??? Consider donating convalescent plasma once you have recovered from your illness (14 days after symptoms have resolved) o Survey to assess eligibility: https://redcap2.[place]/redcap/surveys/?s=8SMF8DIB3S and/ or contact o More information is available at - https://www.uscovidplasma.org/ - https://ccpp19.org/ - https://covidplasma.org/ This note is being cc'ed to the patient's primary care physician for their situational awareness only. The COVID-19 Frontline Care Team will follow up on next steps related to the COVID-19 infection. Roman Crystal D.O. COVID-19 Frontline Care Team [facility] This was a virtual visit. The patient was not seen face to face because of COVID-19. Total time spent in chart review and counselin minutes documented in this encounter Plan of Treatment Upcoming Encounters Date Type Specialty Care Team Description 02/01/2022 Comprehensive Visit Family Medicine Cynthia Rockwell, Kuldip EUBANKS, C.N.P. [address], [place] [phone] (Wo rk) documented as of this encounter Visit Diagnoses Diagnosis COVID-19 Infection Arthritis Rheumatoid (HCC) Yoruba Language Deficit - Primary General Medical Examination Adult Hypothyroidism Acquired Arthritis Rheumatoid (HCC) High Risk Medication History Of Falling Encounter For COVID-19 Vaccine Immunizat ion Need Vaccine Immunization Influenza Encounter For Other Screening For Malign ant Neoplasm Of Breast documented in this encounter Additional Health Concerns Infection Onset Date Last Indicated Resolved Time [id number]: >30 days since initial test 07/15/201907/0208/24/2019 9:55 AM CDT Danay Castillo M.D. documented as of this encounter Care Teams Machine Rough Rounder Relationship Specialty Start Date End Date Cynthia Rockwell APRN, C.N.P. PCP - General 08/16/16 [address], [place] [address] documented as of this encounter
--- OUTSIDE RECORDS SUMMARY | 2022-01-21 23:22 | XMS_ITS | Encounter Summary ---
:[address] [facility] Address [address] [place] [address] Care Team Providers Name Role Phone Cynthia Rockwell APRN, C.N.P. Primary Care Provider [phone] Reason for Visit Reason Comments Symptom Assessment Encounter Details Date Type Department Care Team Description 08/31/2019 Clinical Division of Perry Arana Symptom Assess ment Communication Rheumatology in [place], [place] C.N.P. [address] [facility] [address] [place] [address] [phone] Social History Tobacco Use Types Packs/Day Years [...] this encounter Miscellaneous Notes Telephone Encounter - Perry Arana APRN, C.N.P. - 09/02/2019 8:42 AM CDT Yes I agree, we can try to move up her appointment. Very difficult to evaluate her given her currentdiagnoses over the phone. Thank you, Perry Telephone Encounter - Radha Melara R.N. - 09/01/2019 9:38 AM CDT SUBJECTIVE CHIEF COMPLAINT / REASON FOR CALL Symptom Assessment Information Discussed Bicycle Racer was utilized. Patient reports that her same symptoms continue in which she had at her last provider visit with Perry Arana C.N.P back in May. She reports that she did see her PCP in [place] and he/she told her she needed to contact Rheumatology because there wasn't anything she coulddo. She reports her pain is in her legs, knees and feet. She reports that her knee injection back [facility] only gave her pain relief for 1 week. She reports that she is having difficulty walking.She also notes swelling in fingers and bottom of feet. She denies stiffness. Patient reports that she has been taking her medications Methotrexate 8 tablets weekly, Leflunomide 20 mg daily and Prednisone 5 mgdaily. Patient believes her medications are not helping with her symptoms and she may need to changethem. Patient does not have appointment scheduled until November but she reports that she cannot wait that long. Patient is aware Perry Arana C.N.P is away today and can wait for recommendations. PLAN Disposition/Recommendation:Patient was transferred to the appointment desk to try to get her appointment moved up. notified provider and awaiting recommendations Information/Education: patient/caller able to teach back Caller agreeable to plan of care: yes The following references were used: nursing clinical judgement Telephone Encounter - Ita Gonzalez M.S.N., R.N. - 08/31/2019 1:45 PM CDT Attempted to call using [employer] Bicycle Racer. Patient son answered, patient not available and no authorization on file. He will call back when mother available. Telephone Encounter - Otilia Smalls - 08/31/2019 11:20 AM CDT Patient of Perry's scheduled for November. She is having trouble walking, pain and fatigue. She would like to speak with a nurse. Thank you documented in this encounter Plan of Treatment Upcoming Encounters Date Type Specialty Care Team Description 02/01/2022 Comprehensive Visit Family Medicine Cynthia Rockwell, Kuldip EUBANKS, C.N.P. [address], [place] [phone] (Wo rk) documented as of this encounter Visit Diagnoses Not on filedocumented in this encounter Care Teams Concert Promoter Relationship Specialty Start Date End Date Cynthia Rockwell APRN, C.N.P. PCP - General 08/16/16 [address] [address] documented as of this encounter
--- OUTSIDE RECORDS SUMMARY | 2022-01-21 23:22 | XMS_ITS | Encounter Summary ---
:1955 Author Organization [facility] Address [address] [place] [address] Care Team Providers Name Role Phone Cynthia Rockwell APRN, C.N.P. Primary Care Provider [phone] Reason for Visit Reason Comments Follow-up Encounter Details Date Type Department Care Team Description 07/20/2019 Clinical Communication Division of General Armando Crystal, Follow-up Internal Medicine in .[place], [place] [address] [facility] [address] [place] [address] [phone] Social History Tobacco Use Types Packs/Day Years [...] or relatives? How often do you attend lutheran or 1 to 4 times per year 09/01 methodist services? Do you belong to any clubs or No 09/18/2018 organizations such as lutheran groups, unions, fraternal or athletic groups, or [...] Miscellaneous Notes Telephone Encounter - Rachana Vilchis Kelby Melendrez - 07/20/2019 2:06 PM CDT SUBJECTIVE CHIEF COMPLAINT / REASON FOR CALL Follow-up Information Discussed Ms. Arias contacted by COVID-19 Frontline Care Team ( CFCT) Registered Nurse for self-monitoring symptom instruction and education related to positive test for SARS-CoV-2 (the virus that causes COVID-19). [facility] and the Center for Disease Control (CDC) require you adhere to symptom monitoring for a minimum of 14 days and follow certain precautions to control the spread of this disease. You arealso required to be isolated in your home until further directed by your medical team. During this time the COVID-19 Frontline Care Team will follow up and a Registered Nurse from our team will contact you by phone to follow-up on symptom progression. I have reinforced the importance of isolation with the patient. We also shared that if they have household contacts that start to have symptoms that they should isolate themselves and call the COVID Nurse line at [phone] for assessment and direction. Self-monitor your symptoms at home including dyspnea, chest pain, dizziness/lightheadedness, vomiting, diarrhea, cough, loss or smell or taste, headache, and runny nose and if they start to worsen, contact a member of our Care Team for guidance by calling [phone], Saturday- Saturday, 8am-5pm. If you become significantly ill, call 911 or go to the emergency department. Please wear a face mask when seeking medical services. We discussed that a CFCT RN teamcenter consultant will be calling back for continued monitoring and follow-up as well as discussion regarding repeat testing, as appropriate. Patient advised, if applicable, to contact their speciality provider for discussion and/or management of other disease processes. Ms. Arias contacted by nurse for initial phone call and day 6 follow-up regarding positive COVID-19 test result. Patient risk factors for developing severe disease include: immune compromised condition and rheumatid arthritis with high risk medicine. We discussed the following symptoms to see if there was development of new or worsening symptoms since symptom onset, or positive result if swabbed while asymptomatic. Today the patient reports the following symptoms: Dyspnea: Not present Chest Pain: Not present Dizzy or lightheaded: Improving, this has been present for 2 weeks Severe vomiting: Not present Severe diarrhea (more than 4 a day): Not present Cough: Unchanged Loss of smell: Not present Loss of taste: Not present Headache: Unchanged Runny nose: Not present Sore throat: Unchanged Chills: Improving, worse at night Myalgias: Worsening Fatigue: Improving Rash: Not present Fever (?100.5F or subjective): Unchanged. She feels febrile, but does not have a thermometer to takeher temperature. She has felt hot and been diaphoretic. Patient takes Tylenol 1000 mg every 8 hours for her RA pain and headaches. Based on the above symptom assessment: Patient advised to continue monitoring symptoms at home and instructed to call CFCT with new or worsening symptoms. CFCT can be reached Saturday-Saturday, 8am-5pm at [phone]. CFCT RN will follow-up via phone in 8 days. Using established standards and provider plan of care for COVID-19 disease, the patient has not completed CFCT program monitoring and is not dismissed from the CFCT program. PLAN Disposition/Recommendation: self-care is appropriate at this time, patient encouraged to call back with questions Information/Education: patient/caller able to teach back Caller agreeable to plan of care: yes The following references were used: nursing clinical judgement documented in this encounter Plan of Treatment Upcoming Encounters Date Type Specialty Care Team Description 02/01/2022 Comprehensive Visit Family Medicine Cynthia Rockwell A PRN, C.N.P. [address] [phone] (Wo rk) documented as of this encounter Visit Diagnoses Not on filedocumented in this encounter Additional Health Concerns Infection Onset Date Last Indicated Resolved Time [id number]: >30 days since initial test 07/15/201907/0208/24/2019 9:55 AM CDT Danay Castillo MJesus Manuel documented as of this encounter Care Teams Rn Private Duty Relationship Specialty Start Date End Date Cynthia Rockwell, SOHAN, C.N.P. PCP - General [address] [place] [address] documented as of this encounter
--- OUTSIDE RECORDS SUMMARY | 2022-01-21 23:22 | XMS_ITS | Encounter Summary ---
:1955 Author Organization [facility] Address [address] [place] [address] Care Team Providers Name Role Phone Cynthia Rockwell APRN, C.N.P. Primary Care Provider [phone] Encounter Details Date Type Department Care Team Description 07/30/2019 Clinical Communication Department of [facility] Christi Rockwell, Medicine, [place] SOHAN, C.N.P. [facility], in [facility] [address] [place] [address] [place], [place] [phone] [address] (Work) [phone] Social History Tobacco Use Types Packs/Day Years [...] or relatives? How often do you attend sabianism or 1 to 4 times per year 09/01 worship services? Do you belong to any clubs or No 09/18/2018 organizations such as sabianism groups, unions, fraternal or athletic groups, or [...] Cynthia Rockwell A PRN, C.N.P. [address], [place] [phone] (Wo rk) documented as of this encounter Visit Diagnoses Not on filedocumented in this encounter Additional Health Concerns Infection Onset Date Last Indicated Resolved Time [id number]: >30 days since initial test 07/15/201907/0208/24/2019 9:55 AM CDT Danay Castillo, Magdalena. documented as of this encounter Care Teams Flask Fitter Relationship Specialty Start Date End Date Cynthia Rcokwell APRN, C.N.P. PCP - General 08/16/16 [address], [place] [address] documented as of this encounter
--- OUTSIDE RECORDS SUMMARY | 2022-01-21 23:22 | XMS_ITS | Encounter Summary ---
:1955 Author Organization [facility] Address [address] [place] [address] Care Team Providers Name Role Phone Cynthia Rockwell APRN, C.N.P. Primary Care Provider [phone] Reason for Visit Reason Comments Med Refill Encounter Details Date Type Department Care Team Description 11/04/2019 Refill Department of Family Medicine, Christi Rockwell APRN, Med Refill [facility], in C.N.P. [place], [place] [address] [facility] [place] [address] [place], [place] [phone] Social History Tobacco Use Types Packs/Day Years [...] or relatives? How often do you attend mandaen or 1 to 4 times per year 09/01 gnosticist services? Do you belong to any clubs or No 09/18/2018 organizations such as mandaen groups, unions, fraternal or athletic groups, or [...] this encounter Miscellaneous Notes Telephone Encounter - Klaudia Smalls - 11/06/2019 2:03 PM CDT Nurse review: Unable to forward request to provider; Discrepancies. -- Request also states, was discontinued on 04/14/2019 by Cynthia Rockwell APRN, C.N.P. -- Med list shows to Start: 09/24/2019 Primary Provider: Cynthia Rockwell APRN, C.N.P. Medication: ammonium lactate (AMLACTIN) 12 % cream documented in this encounter Plan of Treatment Upcoming Encounters Date Type Specialty Care Team Description 02/01/2022 Comprehensive Visit Family Medicine Cynthia Rockwell, Kuldip EUBANKS, C.N.P. [address], [place] [phone] (Wo rk) documented as of this encounter Visit Diagnoses Not on filedocumented in this encounter Care Teams Scientific Publications Editor Relationship Specialty Start Date End Date Cynthia Rockwell APRN, C.N.P. PCP - General 08/16/16 [address] [address] documented as of this encounter
--- OUTSIDE RECORDS SUMMARY | 2022-01-21 23:23 | XMS_ITS | Encounter Summary ---
:1955 Author Organization [facility] Address [address] [place] [address] Care Team Providers Name Role Phone Cynthia Rockwell APRN, C.N.P. Primary Care Provider [phone] Reason for Visit Reason Onset Date Comments Rx Prior Authorization 03/02/2019 DENIAL OF DICLOFE NAC SOD 1% GEL Encounter Details Date Type Department Care Team Description 03/02/2019 Clinical Department of Cynthia Rockwell Rx Prior Communication Family Medicine, SOHAN Taylor, Authorizat sukhi (DENIAL [facility], C.N.P. OF DICLOFENAC SOD 1% in [place], [address] GEL ) [address] [facility] [place] [id number] Social History Tobacco Use Types Packs/Day [...] or relatives? How often do you attend jehovah's witness or 1 to 4 times per year 09/01 pentecostalism services? Do you belong to any clubs or No 09/18/2018 organizations such as jehovah's witness groups, unions, fraternal or athletic groups, or [...] this encounter Miscellaneous Notes Telephone Encounter - Dino Ruiz - 03/02/2019 10:46 AM CST The patient???s health insurer has denied prior authorization for DICLOFENAC SOD 1% GEL . PLEASE SEEDENIAL LETTER FOR MORE INFORMATION. Your options: 1. Appeal the decision by reaching out to the patient???s insurer directly. 2. Consider changing the patient???s medication therapy. 3. If not appealing or prescribing a different Rx, the prescription has already been released to thepharmacy so the patient has the option to pay full gibbons for the item if desired. A COPY OF THE INITIAL SUBMISSION AND OF THE COMPLETE DENIAL LETTER CAN BE FOUND UNDER THE PATIENT'S MEDIA TAB. If you have any follow-up questions regarding this communication, please contact the Outpatient Pharmaceutical PA department at email address [facility]. Thank you NESS OFFICE MANAGER documented in this encounter Plan of Treatment Upcoming Encounters Date Type Specialty Care Team Description 02/01/2022 Comprehensive Visit Family Medicine Cynthia Rockwell A PRN, C.N.P. [address] [place] [phone] (Wo rk) documented as of this encounter Visit Diagnoses Not on filedocumented in this encounter Care Teams Blood Bank Booking Clerk Relationship Specialty Start Date End Date Cynthia Rockwell APRN, C.N.P. PCP - General 08/16/16 [address] [address] documented as of this encounter
--- OUTSIDE RECORDS SUMMARY | 2022-01-21 23:23 | XMS_ITS | Encounter Summary ---
:1955 Author Organization [facility] Address [address] [place] [address] Care Team Providers Name Role Phone Cynthia Rockwell APRN, C.N.P. Primary Care Provider [phone] Reason for Visit Reason Comments URI Sore throat,coughing and camila n all over body. Started about 2 days ago. Will do flu shot today. Encounter Details Date Type Department Care Team Description 04/14/2019 Office Visit Department of Family Cynthia Rockwell Eng lish Language Deficit (Primary Dx); Medicine, [place] SOHAN, C.N.P. Sinusitis Acute Maxillary; Clinic, in [place], [address] Disturbance Sleep; [place], [place] Arthritis Rheumatoid (HCC); [address] [address] Cough; [place], [place] [phone] Fibromyalgia; [address] (Work) Need Vaccine Immunization Influenza [phone] Social History Tobacco Use Types Packs/Day Years [...] Sign Reading Time Taken Comments Blood Pressure 129/51 04/14/2019 11:20 AM FAN ENGINE ENGINEER Pulse 78 04/14/2019 11:20 AM FAN ENGINE ENGINEER Temperature 36.9 ??C (98.4 ??F) 04/14/2019 11:20 AM FAN ENGINE ENGINEER Respiratory Rate 20 04/14/2019 11:20 AM FAN ENGINE ENGINEER Oxygen Saturation 100% 04/14/2019 11:20 AM FAN ENGINE ENGINEER Inhaled Oxygen Concentration - - Weight 76 kg (167 lb 7 oz) 04/14/2019 11:20 AM FAN ENGINE ENGINEER Height 154.5 cm (5' 0.83) 04/14/2019 11:20 AM FAN ENGINE ENGINEER Body Mass Index 31.82 04/14/2019 11:20 AM FAN ENGINE ENGINEER documented in this encounter Patient Instructions AttachmentsThe following attachments cannot be sent through Care Everywhere. Acute Sinusitis (Israeli)documented in this encounter Progress Notes Cynthia Rockwell, SOHAN, C.N.P. - 04/14/2019 11:30 AM CST SUBJECTIVE CHIEF COMPLAINT: Chief Complaint Patient presents with ??? URI Sore throat,coughing and pain all over body. Started about 2 days ago. Will do flu shot today. HISTORY OF PRESENT ILLNESS: Althea is here with her son who is interpreting, hospice fellow waiver form signed and scanned in the EHR. She states she has had sinus congestion with postnasal drip and cough for the past week. Throat is scratchy. No fever. Glands are swollen and tender. Increased fatigue. She would like cough medicine. She does not sleep well at night due to rheumatoid arthritis and fibromyalgia discomfort. She follows with rheumatology at [facility] in [place] in is due for appointment in early May. She needs labs performed prior to the appointment. She would like influenza immunization today. REVIEW OF SYSTEMS: A 10 system review [...] total) by mouth daily., Disp: 90 tablet,Rfl: 0 ??? cefUROXime (CEFTIN) 500 mg tablet, Take 1 tablet (500 mg total) by mouth every 12 (twelve) hoursfor 10 days., Disp: 20 tablet, Rfl: 0 ??? dextromethorphan-guaiFENesin (ROBITUSSIN-DM) 10-100 mg/5 mL syrup, Take 10 mL by mouth every 4 (four) hours as needed for cough for up to 10 days., Disp: 473 mL, Rfl: 0 ??? traZODone (DESYREL) 50 mg tablet, Take 1 tablet (50 mg total) by mouth at bedtime as needed for sleep., Disp: 30 tablet, Rfl: 11 OBJECTIVE VITAL SIGNS: Temperature: [36.9 ??C] 36.9 ??C Resp Rate: [20] 20 Blood Pressure: (129)/(51) 129/51 SpO2: [100 %] 100 % Pulse Rate: [78] 78 PHYSICAL EXAM: General: Well-developed, well-nourished, in no acute distress. Skin: Warm and dry. Eyes: PERRLA. EOMI intact. Fundi sharp discs. Conjunctiva and lids normal. HEENT: TMs dull with serous fluid in the middle ear bilaterally . Throat clear. Nares congested withyellow mucus, tenderness over the maxillary sinuses. Neck: Supple. Mild anterior cervical lymphadenopathy. No thyromegaly. Heart: Regular rate and rhythm. S1, S2. No murmur. Lungs: Clear to auscultation. No wheezes or rales. Abdomen: Soft, nontender. No hepatosplenomegaly. EXTREMITIES: Warm, dry. No peripheral edema. MENTAL: Alert and oriented times three. NEUROLOGIC: Deep tendon reflexes are +2 and symmetrical. ASSESSMENT /PLAN: #1 Israeli Language Deficit #2 Sinusitis Acute Maxillary #3 Disturbance Sleep #4 Arthritis Rheumatoid (HCC) #5 Cough #6 Fibromyalgia #7 Need Vaccine Immunization Influenza Cefuroxime, 500 mg, 1 tab, PO, 2xDay, x 10 days. Encourage fluids, acetaminophen 325 mg, 2 tabs every 4 hours as needed for discomfort. Dextromethorphan- guaifenesin, 10 mL every 4 hours as needed for cough. Rest. Recheck if symptoms do not improve. Trazodone 50 mg 1 tablet at bedtime as needed for sleep. Continue to follow with rheumatology at [facility] in [place], call and schedule upcoming appointment due in early May. Come in for schedule labs prior to the appointment. Influenza immunization given today. HEALTH MAINTENANCE: Due for mammogram. ENGINE ENGINEER documented in this encounter Plan of Treatment Upcoming Encounters Date Type Specialty Care Team Description 02/01/2022 Comprehensive Visit Family Medicine Cynthia Rockwell A PRN, C.N.P. [address] [place], [place] [phone] (Wo rk) documented as of this encounter Visit Diagnoses Diagnosis Israeli Language Deficit - Primary Sinusitis Acute Maxillary Disturbance Sleep Arthritis Rheumatoid (HCC) Cough Unspecified Type Fibromyalgia Need Vaccine Immunization Influenza Israeli Language Deficit - Primary General Medical Examination Adult Hypothyroidism Acquired Arthritis Rheumatoid (HCC) High Risk Medication History Of Falling Encounter For COVID-19 Vaccine Immunizat ion Need Vaccine Immunization Influenza Encounter For Other Screening For Malign ant Neoplasm Of Breast documented in this encounter Care Teams Die Presser Relationship Specialty Start Date End Date Cynthia Rockwell APRN, C.N.P. PCP - General 08/16/16 [address] [place] [phone] documented as of this encounter
--- OUTSIDE RECORDS SUMMARY | 2022-01-21 23:23 | XMS_ITS | Encounter Summary ---
:1955 Author Organization [facility] Address [address] [place] [address] Care Team Providers Name Role Phone Cynthia Rockwell APRN, C.N.P. Primary Care Provider [phone] Encounter Details Date Type Department Care Team Description 11/07/2018 Orders Only Division of Rheumatology in [place] Yeni Melendrez [place], [place] [address] [facility] [address] [place] [phone] Social History Tobacco Use Types Packs/Day Years [...] or relatives? How often do you attend faith or 1 to 4 times per year 09/01 yazidi services? Do you belong to any clubs or No 09/18/2018 organizations such as faith groups, unions, fraternal or athletic groups, or [...] Cynthia Rockwell A PRN, C.N.P. [address] [place], [place] [phone] (Wo rk) documented as of this encounter Visit Diagnoses Not on filedocumented in this encounter Care Teams Air Conditioning Engineer Relationship Specialty Start Date End Date Cynthia Rockwell APRN, C.N.P. PCP - General 08/16/16 [address] [place] [phone] documented as of this encounter
--- OUTSIDE RECORDS SUMMARY | 2022-01-21 23:23 | XMS_ITS | Encounter Summary ---
:1955 Author Organization [facility] Address [address] [place] [address] Care Team Providers Name Role Phone Cynthia Rockwell APRN, C.N.P. Primary Care Provider [phone] Reason for Referral Outpatient (Routine) - Closed Specialty Diagnoses / Procedures Referred By Contact Refer red To Contact Rheumatology Perry Arana APR N, C.N.P. [facility] [address] [place] [phone] Referral ID Status Reason Start Date Expiration Date Visits Requ ested Visits Authorized [id number] Closed 05/13/2019 05/12/2020 1 1 Outpatient (Routine) - Closed Specialty Diagnoses / Procedures Referred By Contact Refer red To Contact Diagnoses Primary Osteoarthritis Knee Bilateral Bursitis Trochanteric Left Perry Arana APRN, [facility] Procedures RHU Non-Guided Aspiration/Injection - Large Joint C.N.P. [address] [place] [phone] Referral ID Status Reason Start Date Expiration Date Visits Requ ested Visits Authorized [id number] Closed 05/13/2019 05/12/2020 1 1 Outpatient (Routine) - Closed Specialty Diagnoses / Procedures Referred By Contact Refer red To Contact Diagnoses Primary Osteoarthritis Knee Bilateral Bursitis Trochanteric Left Perry Arana APRN, [facility] Procedures RHU Non-Guided Aspiration/Injection - Large Joint C.N.P. [address] [place] [address] Referral ID Status Reason Start Date Expiration Date Visits Requ ested Visits Authorized [id number] Closed 05/13/2019 05/12/2020 1 1 Reason for Visit Outpatient (Routine) - Closed Specialty Diagnoses / Procedures Referred By Contact Refer red To Contact Rheumatology Perry Arana, POWER Barreto, C.N.P. [place] [address] [place], [place] [phone] Referral ID Status Reason Start Date Expiration Date Visits Requ ested Visits Authorized [id number] Closed 11/07/2018 11/07/2019 1 1 Encounter Details Date Type Department Care Team Description 05/13/2019 Office Visit Division of Perry Arana, Arthritis R heumatoid (HCC) (Primary Dx); Rheumatology in [place] C.N.P. Primary Osteoarthritis Knee Bilateral; [place], [place] [address] [facility] Bursitis Trochanteric Left [address] [place] [phone] Social History Tobacco Use Types Packs/Day Years [...] Progress Notes Perry Arana, SOHAN, C.N.P. - 05/13/2019 1:00 PM CDT SUBJECTIVE CHIEF COMPLAINT / REASON FOR VISIT Althea Arias is a 64 y.o. female who presents for follow up of rheumatoid arthritis. The entirety of this visit was with the assistance of a [place] trained translator interpreter. HISTORY OF PRESENT ILLNESS This is a [...] she describes increased dizzinessassociated with dose increase. Inflammatory markers are mildly elevated. We will see she does with injections. #3 Primary Osteoarthritis Knee Bilateral We will pursue injection of the left knee. She will let us know in the future if she would like to pursue the right knee #4 Fibromyalgia We discussed this at length today. Since her last visit she has transition to Cymbalta. She is continuing to describe widespread pain and it is not clear whether not she has had improvement switching from the gabapentin to the Cymbalta. We will see if injections are of any benefit to her at this time. PATIENT EDUCATION Ready to learn, no apparent learning barriers were identified; learning preferences include listening. Explained diagnosis and treatment plan; patient expressed understanding of the content. documented in this encounter Plan of Treatment Upcoming Encounters Date Type Specialty Care Team Description 02/01/2022 Comprehensive Visit Family Medicine Cynthia Rockwell A PRN, C.N.P. [address] [place], [place] [phone] (Wo rk) Scheduled Referrals Name Type Priority Associated Order Schedule Diagnoses Rheumatology office Outpatient Referral Routine E xpected: visit (clinic) 10/13/2019 (Approximate), Expires: 05/12/2022 documented as of this encounter Results (ABNORMAL) Creatinine with Estimated GFR (10/30/2019 10:57 AM CDT) Analysis Performed At Patho logist Time Signature Creatinine 0.55 (L) 0.59 - 10/30/2019 [place] 1.04 mg/dL 1:39 PM CDT eGFR-Black/Afri >90 >=60 10/30/2019 [place] can Slovenian mL/min/BSA 1:39 PM CDT Comment: ----ADDITIONAL INFORMATION---- [...] Venous) AM CDT PM CDT Perry Arana APRN C.N.P. LAB BLOOD ADD-ON Performing Organization Address City/State/ZIP Code Phon e Number [facility]- [address] [place] [address] [facility] [place] [address] System in [place] [address] AST (Aspartate Aminotransferase) (10/30/2019 10:57 AM CDT) Patholo gist Method Time Signature Aspartate 20 8 - 43 10/30/2019 [place] Aminotransferase U/L 1:39 PM CDT (AST), P Specimen Anatomical Collection Method Collection Time Receive d Time (Source) Location / / Volume Laterality Blood (Blood, 10/30/2019 10:57 10/30/2019 1:04 Venous) AM CDT PM CDT Maisha Joaquin APRNN.P. LAB BLOOD ADD-ON Performing Organization Address City/State/ZIP Code Phon e Number [facility]- [address] [place] [address] [place] [address] System in [place] [address] (ABNORMAL) CRP (C-Reactive Protein) (10/30/2019 10:57 AM CDT) P athologist Signature C-Reactive 26.8 (H) <=8.0 mg/L 10/30/2019 [place] Protein (CRP), 1:39 PM CDT P Specimen Anatomical Collection Method Collection Time Receive d Time (Source) Location / / Volume Laterality Blood (Blood, 10/30/2019 10:57 10/30/2019 1:04 Venous) AM CDT PM CDT Arlette Joaquin APRN.N.P. LAB BLOOD ADD-ON Performing Organization Address City/State/ZIP Code Phon e Number [facility]- [address] [place] [address] [place] [address] System in [place] [address] (ABNORMAL) Sedimentation Rate (10/30/2019 10:57 AM CDT) [facility] Method Time Signature Sedimentation 50 (H) 0 - 29 10/30/2019 FB60 Rate, B mm/1 h 12:04 PM CDT Specimen Anatomical Collection Method Collection Time Receive d Time (Source) Location / / Volume Laterality Blood (Blood, 10/30/2019 10:57 10/30/2019 Venous) AM CDT 10:57 AM CDT Perry Arana APRN, Arlette.N.P. LAB BLOOD ADD-ON Performing Organization Address City/State/ZIP Code Phon e Number [facility]- [address] [place] [address] [place] [facility] [address] [place] [address] System in [place] [address] (ABNORMAL) CBC with Differential, Blood (10/30/2019 10:57 AM CDT) [facility] gist Method Time Signature Hemoglobin 11.8 11.6 - [...] AM CDT 10:57 AM CDT Perry Arana APRN C.N.P. LAB BLOOD ADD-ON Performing Organization Address City/State/ZIP Code Phon e Number [facility]- [address] [place] [address] [place] [facility] [address] [place] [address] System in [place] [address] documented in this encounter Visit Diagnoses Diagnosis Arthritis Rheumatoid (HCC) - Primary Primary Osteoarthritis Knee Bilateral Bursitis Trochanteric Left Upper Sorbian Language Deficit - Primary General Medical Examination Adult Hypothyroidism Acquired Arthritis Rheumatoid (HCC) High Risk Medication History Of Falling Encounter For COVID-19 Vaccine Immunizat ion Need Vaccine Immunization Influenza Encounter For Other Screening For Malign ant Neoplasm Of Breast documented in this encounter Care Teams Reconciliation Analyst Relationship Specialty Start Date End Date Cynthia Rockwell APRN, C.N.P. PCP - General 08/16/[address] [phone] documented as of this encounter
--- OUTSIDE RECORDS SUMMARY | 2022-01-21 23:23 | XMS_ITS | Encounter Summary ---
:1955 Author Organization [facility] Address [address] [place] [address] Care Team Providers Name Role Phone Cynthia Rockwell APRN, C.N.P. Primary Care Provider [phone] Encounter Details Date Type Department Care Team Description 11/04/2018 Hospital Encounter Department of Petra Martines Rheumatoid Laboratory Medicine SOHAN Flowers, C.N .P. ([facility]) in [place] [address] [address] [address] [place], [place] [phone] (Work) [phone] Social History Tobacco Use Types Packs/Day Years [...] or relatives? How often do you attend adventist or 1 to 4 times per year 09/01 mandaen services? Do you belong to any clubs or No 09/18/2018 organizations such as adventist groups, unions, fraternal or athletic groups, or [...] mouth Fibromyalgia 2 (two) times a day. acetaminophen (TYLENOL) Take 2 tablets 100 tablet 11 09/19/19 19 04/14/2019 500 mg tabletIndications: (1,000 mg total) by Fibromyalgia mouth every 8 (eight) hours as needed for moderate pain or score 4-6 of 10. chlorhexidine (PERIDEX) Swish and spit 2 473 mL 3 201804/14/2019 0.12 % mouthwash (two) times a day. 15 mL diclofenac sodium Apply 2 g topically 1 Tube 9 04/14/2019 (VOLTAREN) 1 % 4 (four) times a gelIndications: Arthritis day as needed Rheumatoid (HCC) (joint pain). docusate sodium (COLACE) Take 1 capsule by 0 06/0305/15/2021 100 mg capsule mouth 2 (two) times a day. folic acid 1 mg Take 1 tablet 90 tablet 3 09/18/20182019 tabletIndications: (1,000 mcg total) Arthritis Rheumatoid by mouth daily. (HCC) leflunomide (ARAVA) 20 mg Take 1 tablet (20 30 tablet 6 05/13/2019 tabletIndications: mg total) by mouth Arthritis Rheumatoid daily. (HCC) levothyroxine (LEVOXYL) Take 1 tablet (75 90 tablet 3 09/1812/23/2019 75 mcg tabletIndications: mcg total) by mouth Hypothyroidism Acquired daily. meclizine (ANTIVERT) 25 Take 25 mg by mouth 0 04/20/2020 mg tablet as needed. methotrexate 2.5 mg Take 8 tablets (20 32 tablet 5 09/19/19 19 05/13/2019 tabletIndications: mg total) by mouth Arthritis Rheumatoid once a week. (HCC) omeprazole (PriLOSEC) 20 Take 1 capsule (20 30 capsule 11 09/18/[address] capsuleIndications: mg total) by mouth Dyspepsia every morning before breakfast. oxyCODONE (ROXICODONE) 5 Take 1 tablet (5 mg 15 tablet 0 04/14/2019 mg immediate release total) by mouth tabletIndications: Acute every 4 (four) Pain hours as needed for pain Indication: Acute Pain. predniSONE (DELTASONE) 5 Take 1 tablet (5 mg 90 tablet 0 05/13/2019 mg tabletIndications: total) by mouth Arthritis Rheumatoid daily. (HCC) documented as of this encounter Plan of Treatment Upcoming Encounters Date Type Specialty Care Team Description 02/01/2022 Comprehensive Visit Family Medicine Cynthia Rockwell, Kuldip PRN, C.N.P. [address], [place] [phone] (Wo rk) documented as of this encounter Procedures Procedure Name Priority Date/Time Associated Comments Diagnosis CBC WITH DIFFERENTIAL, B Routine 11/04/2018 12:34 Arthritis Results for this PM CDT Rheumatoid (HCC) procedure a re in the results section. C-REACTIVE PROTEIN Routine 11/04/2018 12:34 Arthritis Resul ts for this (CRP), S/P PM CDT Rheumatoid (HCC) procedure a re in the results section. SEDIMENTATION RATE, B Routine 11/04/2018 12:33 Arthritis Re sults for this PM CDT Rheumatoid (HCC) procedure a re in the results section. ASPARTATE Routine 11/04/2018 12:33 Arthritis Results for this AMINOTRANSFERASE (AST), PM CDT Rheumatoid (HCC) procedure are in S/P the results section. CREATININE WITH EGFR, Routine 11/04/2018 12:33 Arthritis Re sults for this S/P PM CDT Rheumatoid (HCC) procedure a re in the results section. documented in this encounter Results (ABNORMAL) CRP (C-Reactive Protein) (11/04/2018 12:34 PM CDT) P athologist Signature C-Reactive 10.4 (H) <=8.0 mg/L 11/04/2018 Protein (CRP), 9:24 PM CDT S Specimen Anatomical Collection Method Collection Time Receive d Time (Source) Location / / Volume Laterality Blood (Blood, 11/04/2018 12:34 11/04/2018 9:11 Venous) PM CDT PM CDT Petra Martines APRN C.N.P. LAB BLOOD ADD-ON Performing Organization Address City/State/ZIP Code Phon e Number [facility]- [address] [place] [address] [place] [facility] CBC with Differential, Blood (11/04/2018 12:34 PM CDT) P athologist Signature Hemoglobin 12.3 11.6 - 11/04/2018 15.0 g/dL 12:40 PM CDT Hematocrit 38.8 35.5 - 11/04/2018 44.9 % 12:40 PM CDT Erythrocytes 4.22 3.92 - 11/04/2018 5.13 12:40 PM CDT x10(12)/L MCV 91.9 78.2 - 11/04/2018 97.9 fL 12:40 PM CDT RBC Distrib Width 14.1 12.2 - 11/04/2018 16.1 % 12:40 PM CDT Platelet Count 193 157 - 371 11/04/2018 x10(9)/L 12:40 PM CDT Leukocytes 3.8 3.4 - 9.6 11/04/2018 x10(9)/L 12:40 PM CDT Neutrophils 2.20 1.56 - 11/04/2018 6.45 12:40 PM CDT x10(9)/L Lymphocytes 1.13 0.95 - 11/04/2018 3.07 12:40 PM CDT x10(9)/L Monocytes 0.37 0.26 - 11/04/2018 0.81 12:40 PM CDT x10(9)/L Eosinophils 0.08 0.03 - 11/04/2018 0.48 12:40 PM CDT x10(9)/L Basophils 0.01 0.01 - 11/04/2018 0.08 12:40 PM CDT x10(9)/L Specimen Anatomical Collection Method Collection Time Receive d Time (Source) Location / / Volume Laterality Blood (Blood, 11/04/2018 12:34 11/04/2018 Venous) PM CDT 12:34 PM CDT Petra Martines APRN, C.N.P. LAB BLOOD ADD-ON Performing Organization Address City/State/ZIP Code Phon e Number [facility] [place] [address] [place] [address] LAB Creatinine with Estimated GFR (11/04/2018 12:33 PM CDT) P athologist Signature Creatinine 0.64 0.59 - 11/04/2018 1.04 mg/dL 4:31 PM CDT eGFR-Non >90 >=60 11/04/2018 Black/ mL/min/BSA 4:31 PM CDT Angolan Comment: ----ADDITIONAL INFORMATION---- Estimated GFR calculated using the 2009 CKD_EPI creatinine equation. eGFR-Black/ >90 >=60 mL/min/BSA 2018 4:31 PM CDT Comment: ----ADDITIONAL INFORMATION---- Estimated GFR calculated using the 2009 CKD_EPI creatinine equation. Specimen Anatomical Collection Method Collection Time Receive d Time (Source) Location / / Volume Laterality Blood (Blood, 11/04/2018 12:33 11/04/2018 3:26 Venous) PM CDT PM CDT Petra Martines APRN, C.N.P. LAB BLOOD ADD-ON Performing Organization Address City/State/ZIP Code Phon e Number [facility] [place] [address] [place] [address] LAB AST (Aspartate Aminotransferase) (11/04/2018 12:33 PM CDT) Patholo gist Method Time Signature Aspartate 19 8 - 43 11/04/2018 Aminotransferase U/L 4:31 PM CDT (AST), S Specimen Anatomical Collection Method Collection Time Receive d Time (Source) Location / / Volume Laterality Blood (Blood, 11/04/2018 12:33 11/04/2018 3:26 Venous) PM CDT PM CDT Petra Martines APRN, C.N.P. LAB BLOOD ADD-ON Performing Organization Address City/State/ZIP Code Phon e Number [facility] [place] [address] [place] [address] LAB Sedimentation Rate (11/04/2018 12:33 PM CDT) Analysis Performed At Patho logist Time Signature Sedimentation 29 0 - 29 11/04/2018 Rate, B mm/1 h 2:39 PM CDT Specimen Anatomical Collection Method Collection Time Receive d Time (Source) Location / / Volume Laterality Blood (Blood, 11/04/2018 12:33 11/04/2018 Venous) PM CDT 12:34 PM CDT Petra Maritnes APRN, C.N.P. LAB BLOOD ADD-ON Performing Organization Address City/State/ZIP Code Phon e Number [facility] [place] [address] [place] [address] LAB documented in this encounter Visit Diagnoses Diagnosis Arthritis Rheumatoid (HCC) Moldovan Language Deficit - Primary General Medical Examination Adult Hypothyroidism Acquired Arthritis Rheumatoid (HCC) High Risk Medication History Of Falling Encounter For COVID-19 Vaccine Immunizat ion Need Vaccine Immunization Influenza Encounter For Other Screening For Malign ant Neoplasm Of Breast documented in this encounter Care Teams Employment Director Relationship Specialty Start Date End Date Cynthia Rockwell APRN, C.N.P. PCP - General 08/16/16 [address] [address] documented as of this encounter
--- OUTSIDE RECORDS SUMMARY | 2022-01-21 23:23 | XMS_ITS | Encounter Summary ---
:1955 Author Organization [facility] Address [address] [place] [address] Care Team Providers Name Role Phone Cynthia Rockwell APRN, C.N.P. Primary Care Provider [phone] Reason for Visit Reason Onset Date Comments med refill/pain 10/29/2018 Encounter Details Date Type Department Care Team Description 10/29/2018 Clinical Communication Division of Plastic Yohana Mullins, med refill/pain Surgery in [facility] [address] [place] [address] [address] [place] [phone] Social History Tobacco Use Types Packs/Day Years [...] or relatives? How often do you attend gnosticism or 1 to 4 times per year 09/01 jainism services? Do you belong to any clubs or No 09/18/2018 organizations such as gnosticism groups, unions, fraternal or athletic groups, or [...] this encounter Miscellaneous Notes Telephone Encounter - Leslie Harp R.N. - 10/29/2018 2:02 PM CDT SUBJECTIVE CHIEF COMPLAINT / REASON FOR CALL med refill/pain Patient is requesting the following information: PLAN The following information was provided: I returned the patient's call. The person answering the phone spoke Spanish and confirmed, twice, that I was speaking with Mrs. Arias. I shared with the patient that no further refills of oxycodone would be provided. She can use any zwrm-xgl-jdfohwn medications such as Tylenol, ibuprofen or Aleve for pain control. The patient seemed disappointed, but expressed understanding. Education: patient/caller able to teach back The following references were used: nursing clinical judgement and provider Penelope Norris APRN, INSOLVENCY PRACTITIONER Telephone Encounter - Penelope Norris APRN, C.N.P. - 10/29/2018 1:33 PM CDT No narcs for a finger lesion excision. Can have NSAIDS or Tylenol. Telephone Encounter - Rekha Gaitan - 10/29/2018 12:51 PM CDT Patient calling- he is still in pain and would like a refill of the oxycodone. documented in this encounter Plan of Treatment Upcoming Encounters Date Type Specialty Care Team Description 02/01/2022 Comprehensive Visit Family Medicine Cynthia Rockwell A PRN, C.N.P. [address] [phone] (Wo rk) documented as of this encounter Visit Diagnoses Not on filedocumented in this encounter Care Teams Merchandising Assistant Relationship Specialty Start Date End Date Cynthia Rockwell, SOHAN, C.N.P. PCP - General 08/16/16 [address] [place] [phone] documented as of this encounter
--- OUTSIDE RECORDS SUMMARY | 2022-01-21 23:23 | XMS_ITS | Encounter Summary ---
:1955 Author Organization [facility] Address [address] [place] [address] Care Team Providers Name Role Phone Cynthia Rockwell APRN, C.N.P. Primary Care Provider [phone] Reason for Visit Reason Comments Med Refill Encounter Details Date Type Department Care Team Description 05/29/2019 Refill Department of Family Medicine, Christi Rockwell APRN, Med Refill [facility], in C[place], [place] [address] 300 [facility] [place] [address] [place], [place] [phone] [phone] Social History Tobacco Use Types Packs/Day Years [...] 1 to 4 times per year 09/01 nondenominational services? Do you belong to any clubs [...] this encounter Miscellaneous Notes Telephone Encounter - Carmelita Crawford - 06/01/2019 8:06 AM CDT Nurse review: Unable to forward request to provider; Not on current med list Primary Provider: Cynthia Rockwell APRN, C.N.P. documented in this encounter Plan of Treatment Upcoming Encounters Date Type Specialty Care Team Description 02/01/2022 Comprehensive Visit Family Medicine Cynthia Rockwell A PRN, C.N.P. [address] [place] [phone] (Wo rk) documented as of this encounter Visit Diagnoses Diagnosis Sinusitis Acute Maxillary Cough Unspecified Type Japanese Language Deficit - Primary General Medical Examination Adult Hypothyroidism Acquired Arthritis Rheumatoid (HCC) High Risk Medication History Of Falling Encounter For COVID-19 Vaccine Immunizat ion Need Vaccine Immunization Influenza Encounter For Other Screening For Malign ant Neoplasm Of Breast documented in this encounter Care Teams Director Market Intelligence Relationship Specialty Start Date End Date Cynthia Rockwell APRN, C.N.P. PCP - General 08/16/16 [address] [place] [phone] documented as of this encounter
--- OUTSIDE RECORDS SUMMARY | 2022-01-21 23:23 | XMS_ITS | Encounter Summary ---
:1955 Author Organization [facility] Address [address] [place] [address] Care Team Providers Name Role Phone Cynthia Rockwell APRN, C.N.P. Primary Care Provider [phone] Reason for Referral Outpatient (Routine) - Closed Specialty Diagnoses / Procedures Referred By Contact Refer red To Contact Rheumatology Perry Arana APR N, C.N.P. [facility] [address] [place] [phone] Referral ID Status Reason Start Date Expiration Date Visits Requ ested Visits Authorized [id number] Closed 11/07/2018 11/07/2019 1 1 Reason for Visit Outpatient (Routine) - Closed Specialty Diagnoses / Procedures Referred By Contact Refer red To Contact [facility] [address] [place] [phone] Referral ID Status Reason Start Date Expiration Date Visits Requ ested Visits Authorized [id number] Closed 07/15/2018 07/15/2019 1 1 Encounter Details Date Type Department Care Team Description 11/07/2018 Office Visit Division of Perry Arana, Arthritis R heumatoid (HCC) (Primary Dx); Rheumatology in [place] Nodule Rheumatoid (HCC); [place], [place] [address] [facility] Primary Osteoarthritis Knee Bilateral; 200 [facility], [place] [phone] Social History Tobacco Use Types Packs/Day Years [...] 1 to 4 times per year 09/01 taoism services? Do you belong to any clubs [...] Progress Notes Perry Arana, SOHAN, C.N.P. - 11/07/2018 9:30 AM CDT SUBJECTIVE CHIEF COMPLAINT / REASON FOR VISIT Althea Arias is a 63 y.o. female who presents for follow up of rheumatoid arthritis. HISTORY OF PRESENT ILLNESS This is a [...] diagnosis of fibromyalgia. Today she reports widespread pain. Most prominent shoulders and hands. She has continued with therapy to include methotrexate, leflunomide, and low-dose prednisone at 5 mg daily. Despite this she continues to have significant morning stiffness, evening pain. She is using conservative measures including warm baths and massage to help. She has been treated with Cymbalta and previously with gabapentin. She reports the later she ran out of but did find that beneficial. She did have nodules removed from her hands earlier this summer and is continuing to heal from those. She still has limited use of her right hand. She has had increased doses of prednisone and is now experiencing symptoms of dizziness when her doses increased beyond 5 mg daily. Previous Reports Reviewed:historical medical records, lab reports and office notes The following portions of the patient's history were reviewed and updated as appropriate: allergies,current medications, medical history and problem list. REVIEW OF SYSTEMS Pertinent positives and negatives as documented in the above history of present illness. PHYSICAL EXAM Constitutional: She is oriented to person, place, and time. She appears well- developed and well-nourished. Eyes: Pupils are equal, round, and reactive to light. Neck: Normal range of motion. Cardiovascular: Normal rate and regular rhythm. Pulmonary/Chest: Effort normal and breath sounds normal. Abdominal: Soft. There is no tenderness. Musculoskeletal: Widespread tenderness in both joints and muscles today. Most tender over the shoulders. No distinct synovitis noted on clinical exam today. She does have changes of osteoarthritis in the hands. There is evidence of ulnar drift in the hands bilaterally. Knees are cool without effusion. Some fullness over the forefoot bilaterally with associated tenderness. Neurological: She is alert and oriented to person, place, and time. Skin: Skin is warm and dry. No rash noted. Healing incisions over the right first and second digits. She continues to have nodules present in the hands. These have not changed in size. Vitals reviewed. Lab: Labs completed prior to visit were reviewed. C reactive protein is slightly elevated at 10. Disease Activity ASSESSMENT / PLAN #1 Arthritis Rheumatoid (HCC) #2 Nodule Rheumatoid (HCC) She will continue with current program which includes methotrexate, leflunomide, folic acid, and low-dose prednisone 5 mg daily. We will not increase the prednisone as she describes increased dizzinessassociated with dose increase. I do not see any active inflammation today and her inflammatory markers have actually improved over the past year. The level is slightly higher today which may be result healing of the incisions in her hands from nodule removal. #3 Primary Osteoarthritis Knee Bilateral Would recommend continued conservative measures. Injections could be considered if symptoms become more problematic. #4 Fibromyalgia We discussed this at length today. She had run out of her gabapentin and I have recommended she follow up with her primary care provider for refills if appropriate. She will continue with the Cymbalta.I did offer her the fibromyalgia program today. Will discuss this further when I see her back in the spring or she can discuss further with her primary care provider if there is any similar options locally for her. She was agreeable with the above outlined plan. PATIENT EDUCATION Ready to learn, no apparent learning barriers were identified; learning preferences include listening. Explained diagnosis and treatment plan; patient expressed understanding of the content. documented in this encounter Plan of Treatment Upcoming Encounters Date Type Specialty Care Team Description 02/01/2022 Comprehensive Visit Family Medicine Cynthia Rockwell A PRN, C.N.P. [address] [phone] (Wo rk) Scheduled Referrals Name Type Priority Associated Order Schedule Diagnoses Rheumatology office Outpatient Referral Routine E xpected: visit (clinic) 05/08/2019 (Approximate), Expires: 11/07/2021 documented as of this encounter Results Creatinine with Estimated GFR (05/07/2019 10:16 AM LABORER SYRUP MACHINE) P athologist Signature Creatinine 0.59 0.59 - 05/07/2019 OWAT 1.04 mg/dL 2:03 PM LABORER SYRUP MACHINE eGFR-Black/Afric >90 >=60 05/07/2019 OWAT an Russian mL/min/BSA 2:03 PM LABORER SYRUP MACHINE Comment: ----ADDITIONAL INFORMATION---- Estimated GFR calculated using the 2009 CKD_EPI creatinine equation. eGFR Non-Black/ >90 >=60 mL/min/BSA 05/07/2019 2:03 PM LABORER SYRUP MACHINE OWAT Comment: ----ADDITIONAL INFORMATION---- Estimated GFR calculated using the 2009 CKD_EPI creatinine equation. Specimen Anatomical Collection Method Collection Time Receive d Time (Source) Location / / Volume Laterality Blood (Blood, 05/07/2019 10:16 05/07/2019 1:28 Venous) AM LABORER SYRUP MACHINE PM LABORER SYRUP MACHINE Arlette Joaquin APRN.N.P. LAB BLOOD ADD-ON Performing Organization Address City/State/ZIP Code Phon e Number [facility]- [address] [place] [address] [place] [address] System in [place] [address] AST (Aspartate Aminotransferase) (05/07/2019 10:16 AM LABORER SYRUP MACHINE) Patholo gist Method Time Signature Aspartate 20 8 - 43 05/07/2019 OWAT Aminotransferase U/L 2:03 PM LABORER SYRUP MACHINE (AST), P Specimen Anatomical Collection Method Collection Time Receive d Time (Source) Location / / Volume Laterality Blood (Blood, 05/07/2019 10:16 05/07/2019 1:28 Venous) AM LABORER SYRUP MACHINE PM LABORER SYRUP MACHINE Perry Arana APRN, C.N.P. LAB BLOOD ADD-ON Performing Organization Address City/State/ZIP Code Phon e Number [facility]- [address] [place] [address] [place] [address] System in [place] [address] (ABNORMAL) CRP (C-Reactive Protein) (05/07/2019 10:16 AM LABORER SYRUP MACHINE) P athologist Signature C-Reactive 13.2 (H) <=8.0 mg/L 05/07/2019 OWAT Protein (CRP), 2:03 PM LABORER SYRUP MACHINE P Specimen Anatomical Collection Method Collection Time Receive d Time (Source) Location / / Volume Laterality Blood (Blood, 05/07/2019 10:16 05/07/2019 1:28 Venous) AM LABORER SYRUP MACHINE PM LABORER SYRUP MACHINE Perry Arana APRN, C.N.P. LAB BLOOD ADD-ON Performing Organization Address City/State/ZIP Code Phon e Number [facility]- [address] [place] [address] [place] [facility] [place] [address] System in [place] [address] (ABNORMAL) Sedimentation Rate (05/07/2019 10:16 AM LABORER SYRUP MACHINE) Patholo gist Method Time Signature Sedimentation 35 (H) 0 - 29 05/07/2019 FB60 Rate, B mm/1 h 10:59 AM LABORER SYRUP MACHINE Specimen Anatomical Collection Method Collection Time Receive d Time (Source) Location / / Volume Laterality Blood (Blood, 05/07/2019 10:16 05/07/2019 Venous) AM LABORER SYRUP MACHINE 10:59 AM LABORER SYRUP MACHINE Perry Arana APRN C.N.P. LAB BLOOD ADD-ON Performing Organization Address City/State/ZIP Code Phon e Number [address] [place] [address] [facility] [place] [address] System [address] CBC with Differential, Blood (05/07/2019 10:16 AM LABORER SYRUP MACHINE) P athologist Signature Hemoglobin 13.4 11.6 - 05/07/2019 FB60 15.0 g/dL 10:28 AM LABORER SYRUP MACHINE Hematocrit 43.1 35.5 - 05/07/2019 FB60 44.9 % 10:28 AM LABORER SYRUP MACHINE Erythrocytes 4.67 3.92 - 05/07/2019 FB60 5.13 10:28 AM LABORER SYRUP MACHINE x10(12)/L MCV 92.3 78.2 - 05/07/2019 FB60 97.9 fL 10:28 AM LABORER SYRUP MACHINE RBC Distrib Width 14.9 12.2 - 05/07/2019 FB60 16.1 % 10:28 AM LABORER SYRUP MACHINE Platelet Count 203 157 - 371 05/07/2019 FB60 x10(9)/L 10:28 AM LABORER SYRUP MACHINE Leukocytes 3.4 3.4 - 9.6 05/07/2019 FB60 x10(9)/L 10:28 AM LABORER SYRUP MACHINE Neutrophils 1.79 1.56 - 05/07/2019 FB60 6.45 10:28 AM LABORER SYRUP MACHINE x10(9)/L Lymphocytes 1.05 0.95 - 05/07/2019 FB60 3.07 10:28 AM LABORER SYRUP MACHINE x10(9)/L Monocytes 0.44 0.26 - 05/07/2019 FB60 0.81 10:28 AM LABORER SYRUP MACHINE x10(9)/L Eosinophils 0.15 0.03 - 05/07/2019 FB60 0.48 10:28 AM LABORER SYRUP MACHINE x10(9)/L Basophils 0.01 0.01 - 05/07/2019 FB60 0.08 10:28 AM LABORER SYRUP MACHINE x10(9)/L Specimen Anatomical Collection Method Collection Time Receive d Time (Source) Location / / Volume Laterality Blood (Blood, 05/07/2019 10:16 05/07/2019 Venous) AM LABORER SYRUP MACHINE 10:27 AM LABORER SYRUP MACHINE Perry Arana APRN, C.N.P. LAB BLOOD ADD-ON Performing Organization Address City/State/ZIP Code Phon e Number [address] [place] [address] [facility] [address] [place] [address] System [address] documented in this encounter Visit Diagnoses Diagnosis Arthritis Rheumatoid (HCC) - Primary Nodule Rheumatoid (HCC) Primary Osteoarthritis Knee Bilateral Fibromyalgia Turkish Language Deficit - Primary General Medical Examination Adult Hypothyroidism Acquired Arthritis Rheumatoid (HCC) High Risk Medication History Of Falling Encounter For COVID-19 Vaccine Immunizat ion Need Vaccine Immunization Influenza Encounter For Other Screening For Malign ant Neoplasm Of Breast documented in this encounter Care Teams Flexographic Printing Press Operator Relationship Specialty Start Date End Date Cynthia Rockwell APRN, C.N.P. PCP - General 08/16/16 [address] [place] [phone] documented as of this encounter
--- OUTSIDE RECORDS SUMMARY | 2022-01-21 23:23 | XMS_ITS | Encounter Summary ---
:1955 Author Organization [facility] Address [address] [place] [address] Care Team Providers Name Role Phone Cynthia Rockwell APRN, C.N.P. Primary Care Provider [phone] Encounter Details Date Type Department Care Team Description 01/21/2019 Orders Only [facility] PCP [facility] MNT Cynthia Rockwell, S creening Mammogram [facility], C.N.P. Breast Cancer [address] [place] [address] Social History Tobacco Use Types Packs/Day [...] or relatives? How often do you attend denominational or 1 to 4 times per year 09/01 yazdanism services? Do you belong to any clubs or No 09/18/2018 organizations such as denominational groups, unions, fraternal or athletic groups, or [...] Medicine Cynthia Rockwell A PRN, C.N.P. [address] [phone] (Wo rk) documented as of this encounter Visit Diagnoses Diagnosis Screening Mammogram Breast Cancer Montserratian Language Deficit - Primary General Medical Examination Adult Hypothyroidism Acquired Arthritis Rheumatoid (HCC) High Risk Medication History Of Falling Encounter For COVID-19 Vaccine Immunizat ion Need Vaccine Immunization Influenza Encounter For Other Screening For Malign ant Neoplasm Of Breast documented in this encounter Care Teams Agricultural Agent Relationship Specialty Start Date End Date Cynthia Rockwell APRN, C.N.P. PCP - General 08/16/[address] [phone] documented as of this encounter
--- OUTSIDE RECORDS SUMMARY | 2022-01-21 23:23 | XMS_ITS | Encounter Summary ---
:1955 Author Organization [facility] Address [address] [place] [address] Care Team Providers Name Role Phone Cynthia Rockwell APRN, C.N.P. Primary Care Provider Encounter Details Date Type Department Care Team Description 03/02/2019 Orders Only Department of Family Cynthia Rockwell APR N, Medicine, [facility], C.N. P. in [facility] [place] [address] [facility] [place] [address] [place] [address] [phone] Social History Tobacco Use Types Packs/Day Years [...] 1 to 4 times per year 09/01 latter-day services? Do you belong to any clubs [...] Cynthia Rockwell, Kuldip EUBANKS, C.N.P. [address], [place] [phone] (Wo rk) documented as of this encounter Visit Diagnoses Not on filedocumented in this encounter Care Teams Heating Operators Engineer Relationship Specialty Start Date End Date Cynthia Rockwell MATERIAL DISPOSITION INSPECTOR, C.N.P. PCP - General 08/16/16 [address] [place] [phone] documented as of this encounter
--- OUTSIDE RECORDS SUMMARY | 2022-01-21 23:23 | XMS_ITS | Encounter Summary ---
:1955 Author Organization [facility] Address [address] [place] [address] Care Team Providers Name Role Phone Cynthia Rockwell APRN, C.N.P. Primary Care Provider [phone] Reason for Visit Reason Onset Date Comments Results 01/28/2019 Encounter Details Date Type Department Care Team Description 01/28/2019 Clinical Communication Department of [facility] Matmiguel perales M.D. Results [facility] Internal [address] [facility], Medicine in [facility] [address] [address] [place] [address] Social History Tobacco Use Types [...] 1 to 4 times per year 09/01 confucianism services? Do you belong to any clubs [...] this encounter Miscellaneous Notes Telephone Encounter - Masoud Bernal L.P.N. - 01/28/2019 12:06 PM CUSTOMER ASSISTANT SUBJECTIVE CHIEF COMPLAINT / REASON FOR CALL Results PLAN The following information was provided: Results were normal of blood test. Information/Education: not applicable The following references were used: provider Dr. Luis OMER ASSISTANT Telephone Encounter - Reny Montano - 01/28/2019 11:43 AM CST Reason for Communication: Althea's son called. He states that Althea had labs done that were orderedby Dr Luis. On 01/22/19 a message was left via developer evangelist for her to call back. I was not able to reach a nurse. He would like someone to call her back a [phone] along with a developer evangelist. If you don't get an answer, you can call him at [phone] Current Phone Number: see above Can Nursing/Provider leave a detailed message: Did the patient refuse triage through Nurse line? (for symptom based concerns): Action Needed: wants call back with results Name of Medication (if relevant): na OMER ASSISTANT documented in this encounter Plan of Treatment Upcoming Encounters Date Type Specialty Care Team Description 02/01/2022 Comprehensive Visit Family Medicine Cynthia Rockwell A PRN, C.N.P. [address] [place], [place] [phone] (Wo rk) documented as of this encounter Visit Diagnoses Not on filedocumented in this encounter Care Teams Plastic Worker Relationship Specialty Start Date End Date Cynthia Rockwell HERBARIUM CURATOR, C.N.P. PCP - General 08/16/16 [address] [place] [phone] documented as of this encounter
--- OUTSIDE RECORDS SUMMARY | 2022-01-21 23:23 | XMS_ITS | Encounter Summary ---
:1955 Author Organization [facility] Address [address] [place] [address] Care Team Providers Name Role Phone Cynthia Rockwell APRN, C.N.P. Primary Care Provider [phone] Reason for Visit Reason Onset Date Comments Med Refill 02/20/2019 Encounter Details Date Type Department Care Team Description 02/20/2019 Refill Department of Family Medicine, Christi Rockwell APRN, Med Refill [facility], in C[place], [place] [address] [facility] [place] [address] [place] [address] [phone] Social History Tobacco Use Types Packs/Day Years [...] or relatives? How often do you attend islam or 1 to 4 times per year 09/01 confucianist services? Do you belong to any clubs or No 09/18/2018 organizations such as islam groups, unions, fraternal or athletic groups, or [...] this encounter Miscellaneous Notes Telephone Encounter - Unique Slaughter R.N. - 02/20/2019 10:31 AM CST Noted. MBLER Telephone Encounter - Anne Andrade - 02/20/2019 10:19 AM CST We received your prior authorization request for DICLOFENAC GEL and have it added to our workflow. We will get to this as soon as possible :) Thank you! MBLER Telephone Encounter - Radha Galan - 02/20/2019 6:46 AM CST Nurse Review: Pharmacy Communication Provider: Cynthia Rockwell APRN, C.N.P. Medication: Diclofenac gel Strength: 1% Frequency: Apply 2 grams 4 times per day as needed for joint paint Pharmacy: [facility] Comment: This needs a PA-please advise. Thank you MBLER documented in this encounter Plan of Treatment Upcoming Encounters Date Type Specialty Care Team Description 02/01/2022 Comprehensive Visit Family Medicine Cynthia Rockwell A PRN, C.N.P. [address] [place], [place] [phone] (Wo rk) documented as of this encounter Visit Diagnoses Not on filedocumented in this encounter Care Teams Duct Cleaner Relationship Specialty Start Date End Date Cynthia Rockwell APRN, C.N.P. PCP - General 08/16/16 [address] [place] [address] documented as of this encounter
--- OUTSIDE RECORDS SUMMARY | 2022-01-21 23:23 | XMS_ITS | Encounter Summary ---
:1955 Author Organization [facility] Address [address] [place] [address] Care Team Providers Name Role Phone Cynthia Rockwell APRN, C.N.P. Primary Care Provider [phone] Reason for Visit Reason Comments Med Refill Encounter Details Date Type Department Care Team Description 12/09/2018 Refill Department of Family Medicine, Christi Rockwell APRN, Med Refill [facility], in [place], [place] [address] [place] [address] [place], [place] [phone] Social History Tobacco Use Types Packs/Day Years [...] or relatives? How often do you attend jain or 1 to 4 times per year 09/01 tenriism services? Do you belong to any clubs or No 09/18/2018 organizations such as jain groups, unions, fraternal or athletic groups, or [...] Notes Telephone Encounter - David Samuels - 12/10/2018 6:47 AM CDT Please review surescript medication request. The requested medication is not on the patient's medication list. documented in this encounter Plan of Treatment Upcoming Encounters Date Type Specialty Care Team Description 02/01/2022 Comprehensive Visit Family Medicine Cynthia Rockwell A PRN, C.N.P. [address], [place] [phone] (Wo rk) documented as of this encounter Visit Diagnoses Not on filedocumented in this encounter Care Teams Kettle Girl Relationship Specialty Start Date End Date Cynthia Rockwell APRN, C.N.P. PCP - General 08/16/16 [address], [place] [address] documented as of this encounter
--- OUTSIDE RECORDS SUMMARY | 2022-01-21 23:23 | XMS_ITS | Encounter Summary ---
:1955 Author Organization [facility] Address [address] [place] [address] Care Team Providers Name Role Phone Cynthia Rockwell APRN, C.N.P. Primary Care Provider [phone] Reason for Visit Reason Comments Eye Exam Appointment Request (Routine) - Closed Specialty Diagnoses / Procedures Referred By Contact Refer red To Contact Ophthalmology Referral ID Status Reason Start Date Expiration Date Visits Requ ested Visits Authorized [id number] Closed 06/02/2018 06/02/2019 1 1 Encounter Details Date Type Department Care Team Description 12/04/2018 Comprehensive Visit Department of Juan Ramon Ivy ed Forms Age Ophthalmology in Ann-Marie Enriquez M.D. Related Cataract [place], [place] [address] Bilateral (Primary [address]x) [place], [place] [phone] Social History Tobacco Use Types Packs/Day Years [...] or relatives? How often do you attend druze or 1 to 4 times per year 09/01 tenriism services? Do you belong to any clubs or No 09/18/2018 organizations such as druze groups, unions, fraternal or athletic groups, or [...] this encounter Progress Notes Juan Ramon Ivy M.D. - 12/04/2018 9:15 AM CDT Althea Arias was seen today for Eye Exam #1 Combined Forms Age Related Cataract Bilateral #1 New glasses Consider KPE with intraocular lens left eye when desired RTO 1 year documented in this encounter Plan of Treatment Upcoming Encounters Date Type Specialty Care Team Description 02/01/2022 Comprehensive Visit Family Medicine Cynthia Rockwell A PRN, C.N.P. [address] [place], [place] [phone] (Wo rk) documented as of this encounter Visit Diagnoses Diagnosis Combined Forms Age Related Cataract Bila teral - Primary Occitan Language Deficit - Primary General Medical Examination Adult Hypothyroidism Acquired Arthritis Rheumatoid (HCC) High Risk Medication History Of Falling Encounter For COVID-19 Vaccine Immunizat ion Need Vaccine Immunization Influenza Encounter For Other Screening For Malign ant Neoplasm Of Breast documented in this encounter Care Teams Sleeve Presser Operator Relationship Specialty Start Date End Date Cynthia Rockwell APRN, C.N.P. PCP - General 08/16/16 [address] [place] [address] documented as of this encounter
--- OUTSIDE RECORDS SUMMARY | 2022-01-21 23:23 | XMS_ITS | Encounter Summary ---
:1955 Author Organization [facility] Address [address] [place] [address] Care Team Providers Name Role Phone Cynthia Rockwell APRN, C.N.P. Primary Care Provider Encounter Details Date Type Department Care Team Description 05/07/2019 Hospital Encounter Department of Perry Arana is Rheumatoid Laboratory Medicine R, SOHAN, C.N .P. ([facility]) in [place] [address] [address] [place], [place] [phone] [address] (Work) [phone] Social History Tobacco Use Types Packs/Day Years [...] or relatives? How often do you attend episcopalian or 1 to 4 times per year 09/01 samaritan services? Do you belong to any clubs or No 09/18/2018 organizations such as episcopalian groups, unions, fraternal or athletic groups, or [...] capsule (60 [address] mg total) by mouth 2 capsuleIndications: (two) times a day. Fibromyalgia traZODone (DESYREL) 50 Take 1 tablet (50 mg 30 tablet 11 01/2020 mg tabletIndications: total) by mouth at Disturbance Sleep bedtime as needed for sleep. acetaminophen (TYLENOL) Take 2 tablets 100 tablet 11 04/14/19 20 12/23/2019 500 mg (1,000 mg total) by tabletIndications: mouth every 8 Fibromyalgia (eight) hours as needed for moderate pain or score 4-6 of 10. dextromethorphan-guaiFEN Take 10 mL by mouth 473 mL 0 06/01/2019 esin (ROBITUSSIN-DM) every 4 (four) hours 10-100 mg/5 mL as needed for cough syrupIndications: Cough for up to 10 days. Unspecified Type docusate sodium (COLACE) Take 1 capsule by 0 06/0305/15/2021 100 mg capsule mouth 2 (two) times a day. folic acid 1 mg Take 1 tablet (1,000 90 tablet 3 09/18/2018 05/13/2019 tabletIndications: mcg total) by mouth Arthritis Rheumatoid daily. (HCC) leflunomide (ARAVA) 20 Take 1 tablet (20 mg 30 tablet 6 05/13/2019 mg tabletIndications: total) by mouth Arthritis [...] by mouth Arthritis Rheumatoid once a week. ([facility]) olopatadine (PATANOL) Administer 1 drop 5 mL [...] tabletIndications: total) by mouth Arthritis Rheumatoid daily. ([facility]) ProAir HFA 90 0 04/30/2019 08/18/2019 mcg/actuation inhaler documented as of this encounter Plan of Treatment Upcoming Encounters Date Type Specialty Care Team Description 02/01/2022 Comprehensive Visit Family Medicine Cynthia Rockwell A PRN, C.N.P. [address] [place] [phone] (Wo rk) documented as of this encounter Procedures Procedure Name Priority Date/Time Associated Comments Diagnosis SEDIMENTATION RATE, B Routine 05/07/2019 10:16 Arthritis Re sults for this AM INDUCTOR TESTER Rheumatoid (HCC) procedure a re in the results section. CBC WITH DIFFERENTIAL, B Routine 05/07/2019 10:16 Arthritis Results for this AM INDUCTOR TESTER Rheumatoid (HCC) procedure a re in the results section. C-REACTIVE PROTEIN Routine 05/07/2019 10:16 Arthritis Resul ts for this (CRP), S/P AM INDUCTOR TESTER Rheumatoid (HCC) procedure a re in the results section. ASPARTATE Routine 05/07/2019 10:16 Arthritis Results for this AMINOTRANSFERASE (AST), AM INDUCTOR TESTER Rheumatoid (HCC) procedure are in S/P the results section. CREATININE WITH EGFR, Routine 05/07/2019 10:16 Arthritis Re sults for this S/P AM INDUCTOR TESTER Rheumatoid (HCC) procedure a re in the results section. documented in this encounter Results Creatinine with Estimated GFR (05/07/2019 10:16 AM INDUCTOR TESTER) P athologist Signature Creatinine 0.59 0.59 - 05/07/2019 OWAT 1.04 mg/dL 2:03 PM INDUCTOR TESTER eGFR-Black/Afric >90 >=60 05/07/2019 OWAT an Croatian mL/min/BSA 2:03 PM INDUCTOR TESTER Comment: ----ADDITIONAL INFORMATION---- Estimated GFR calculated using the 2009 CKD_EPI creatinine equation. eGFR Non-Black/ >90 >=60 mL/min/BSA 05/07/2019 2:03 PM INDUCTOR TESTER OWAT Comment: ----ADDITIONAL INFORMATION---- Estimated GFR calculated using the 2009 CKD_EPI creatinine equation. Specimen Anatomical Collection Method Collection Time Receive d Time (Source) Location / / Volume Laterality Blood (Blood, 05/07/2019 10:16 05/07/2019 1:28 Venous) AM INDUCTOR TESTER PM INDUCTOR TESTER Perry Arana APRN, C.N.P. LAB BLOOD ADD-ON Performing Organization Address City/State/ZIP Code Phon e Number [facility]- [address] [place] [address] [place] [address] System in [place] [address] AST (Aspartate Aminotransferase) (05/07/2019 10:16 AM INDUCTOR TESTER) Patholo gist Method Time Signature Aspartate 20 8 - 43 05/07/2019 OWAT Aminotransferase U/L 2:03 PM INDUCTOR TESTER (AST), P Specimen Anatomical Collection Method Collection Time Receive d Time (Source) Location / / Volume Laterality Blood (Blood, 05/07/2019 10:16 05/07/2019 1:28 Venous) AM INDUCTOR TESTER PM INDUCTOR TESTER Perry Arana APRN, C.N.P. LAB BLOOD ADD-ON Performing Organization Address City/State/ZIP Code Phon e Number [facility]- [address] [place] [address] [place] [address] System in [place] [address] (ABNORMAL) CRP (C-Reactive Protein) (05/07/2019 10:16 AM INDUCTOR TESTER) P athologist Signature C-Reactive 13.2 (H) <=8.0 mg/L 05/07/2019 OWAT Protein (CRP), 2:03 PM INDUCTOR TESTER P Specimen Anatomical Collection Method Collection Time Receive d Time (Source) Location / / Volume Laterality Blood (Blood, 05/07/2019 10:16 05/07/2019 1:28 Venous) AM INDUCTOR TESTER PM INDUCTOR TESTER Perry Arana APRN, C.N.P. LAB BLOOD ADD-ON Performing Organization Address City/State/ZIP Code Phon e Number [facility]- [address] [place] [address] [facility] [place] [address] System in [place] [address] (ABNORMAL) Sedimentation Rate (05/07/2019 10:16 AM INDUCTOR TESTER) Patholo gist Method Time Signature Sedimentation 35 (H) 0 - 29 05/07/2019 FB60 Rate, B mm/1 h 10:59 AM INDUCTOR TESTER Specimen Anatomical Collection Method Collection Time Receive d Time (Source) Location / / Volume Laterality Blood (Blood, 05/07/2019 10:16 05/07/2019 Venous) AM INDUCTOR TESTER 10:59 AM INDUCTOR TESTER Perry Arana APRN, C.N.P. LAB BLOOD ADD-ON Performing Organization Address City/State/ZIP Code Phon e Number [address] [place] [address] [facility] [place] [address] [address] CBC with Differential, Blood (05/07/2019 10:16 AM INDUCTOR TESTER) P athologist Signature Hemoglobin 13.4 11.6 - 05/07/2019 FB60 15.0 g/dL 10:28 AM INDUCTOR TESTER Hematocrit 43.1 35.5 - 05/07/2019 FB60 44.9 % 10:28 AM INDUCTOR TESTER Erythrocytes 4.67 3.92 - 05/07/2019 FB60 5.13 10:28 AM INDUCTOR TESTER x10(12)/L MCV 92.3 78.2 - 05/07/2019 FB60 97.9 fL 10:28 AM INDUCTOR TESTER RBC Distrib Width 14.9 12.2 - 05/07/2019 FB60 16.1 % 10:28 AM INDUCTOR TESTER Platelet Count 203 157 - 371 05/07/2019 FB60 x10(9)/L 10:28 AM INDUCTOR TESTER Leukocytes 3.4 3.4 - 9.6 05/07/2019 FB60 x10(9)/L 10:28 AM INDUCTOR TESTER Neutrophils 1.79 1.56 - 05/07/2019 FB60 6.45 10:28 AM INDUCTOR TESTER x10(9)/L Lymphocytes 1.05 0.95 - 05/07/2019 FB60 3.07 10:28 AM INDUCTOR TESTER x10(9)/L Monocytes 0.44 0.26 - 05/07/2019 FB60 0.81 10:28 AM INDUCTOR TESTER x10(9)/L Eosinophils 0.15 0.03 - 05/07/2019 FB60 0.48 10:28 AM INDUCTOR TESTER x10(9)/L Basophils 0.01 0.01 - 05/07/2019 FB60 0.08 10:28 AM INDUCTOR TESTER x10(9)/L Specimen Anatomical Collection Method Collection Time Receive d Time (Source) Location / / Volume Laterality Blood (Blood, 05/07/2019 10:16 05/07/2019 Venous) AM INDUCTOR TESTER 10:27 AM INDUCTOR TESTER Perry Arana APRN, C.N.P. LAB BLOOD ADD-ON Performing Organization Address City/State/ZIP Code Phon e Number [address] [place] [address] [facility] [address] [place] [address] System [address] documented in this encounter Visit Diagnoses Diagnosis Arthritis Rheumatoid (HCC) Lithuanian Language Deficit - Primary General Medical Examination Adult Hypothyroidism Acquired Arthritis Rheumatoid (HCC) High Risk Medication History Of Falling Encounter For COVID-19 Vaccine Immunizat ion Need Vaccine Immunization Influenza Encounter For Other Screening For Malign ant Neoplasm Of Breast documented in this encounter Care Teams Lockstitch Topstitcher Relationship Specialty Start Date End Date Cynthia Rockwell APRN, C.N.P. PCP - General 08/16/[address] [phone] documented as of this encounter
--- OUTSIDE RECORDS SUMMARY | 2022-01-21 23:23 | XMS_ITS | Encounter Summary ---
:1955 Author Organization [facility] Address [address] [place] [address] Care Team Providers Name Role Phone Cynthia Rockwell APRN, C.N.P. Primary Care Provider Encounter Details Date Type Department Care Team Description 01/16/2019 Hospital Encounter Department of Ramsey Luis M.D. Cough; Radiology in [address] Dyspnea; Jesika Leonard, [address] Headache; [place], [place] Sinusitis Acute Frontal; [address] [address] Sinusitis Acute Maxillary CAREY LEONARD [phone] [address] (Fax) [phone] Social History Tobacco Use Types Packs/Day Years [...] 2 capsuleIndications: (two) times a day. Fibromyalgia levoFLOXacin (LEVAQUIN) Take 1 tablet (500 7 tablet 0 01/0201/23/2019 500 mg tablet mg total) by mouth daily for 7 days. promethazine-codeine Take 5-10 mL by 120 mL 0 01/16/2019 02/15/2019 (PHENERGAN with CODEINE) mouth every 4 (four) 6.25-10 mg/5 mL syrup hours as needed for cough. acetaminophen (TYLENOL) Take 2 tablets 100 tablet 11 09/19/19 19 04/14/2019 500 mg (1,000 mg total) by tabletIndications: mouth every 8 Fibromyalgia (eight) hours as needed for moderate pain or score 4-6 of 10. ammonium lactate APPLY CREAM 140 g 2 12/10/2018 020 (AMLACTIN) 12 % cream TOPICALLY TO AFFECTED AREA ONCE DAILY chlorhexidine (PERIDEX) Swish and spit 2 473 mL 3 201804/14/2019 0.12 % mouthwash (two) times a day. 15 mL diclofenac sodium Apply 2 g topically 1 Tube 9 04/14/2019 (VOLTAREN) 1 % 4 (four) times a day gelIndications: as needed (joint Arthritis Rheumatoid pain). ([facility]) docusate sodium (COLACE) Take 1 capsule by 0 /08/201405/15/2021 100 mg capsule mouth 2 (two) times a day. folic acid 1 mg Take 1 tablet (1,000 90 tablet 3 09/18/2018 05/13/2019 tabletIndications: mcg total) by mouth Arthritis Rheumatoid daily. ([facility]) leflunomide (ARAVA) 20 Take 1 tablet (20 mg 30 tablet 6 05/13/2019 mg tabletIndications: total) by mouth Arthritis Rheumatoid daily. ([facility]) levothyroxine (LEVOXYL) Take 1 tablet (75 90 tablet 3 09/1812/23/2019 75 mcg mcg total) by mouth tabletIndications: daily. Hypothyroidism Acquired meclizine (ANTIVERT) 25 Take 25 mg by mouth 0 04/20/2020 mg tablet as needed. methotrexate 2.5 mg Take 8 tablets (20 32 tablet 5 09/19/19 19 05/13/2019 tabletIndications: mg total) by mouth Arthritis Rheumatoid once a week. ([facility]) olopatadine (PATANOL) Administer 1 drop 5 mL 5 019 11/06/2019 0.1 % ophthalmic into both eyes 2 solution (two) times a day. omeprazole (PriLOSEC) 20 Take 1 capsule (20 30 capsule 11 09/18/[address] mg total) by mouth capsuleIndications: every morning before Dyspepsia breakfast. oxyCODONE (ROXICODONE) 5 Take 1 tablet (5 mg 15 tablet 0 04/14/2019 mg immediate release total) by mouth tabletIndications: Acute every 4 (four) hours Pain as needed for pain Indication: Acute Pain. predniSONE (DELTASONE) 5 Take 1 tablet (5 mg 90 tablet 0 05/13/2019 mg tabletIndications: total) by mouth Arthritis Rheumatoid daily. ([facility]) documented as of this encounter Plan of Treatment Upcoming Encounters Date Type Specialty Care Team Description 02/01/2022 Comprehensive Visit Family Medicine Cynthia Rockwell A PRN, C.N.P. [address] [place] [phone] (Wo rk) documented as of this encounter Procedures Procedure Name Priority Date/Time Associated Comments Diagnosis DX CHEST AP OR PA RAD - Routine 01/16/2019 2:41 Cough Results for this AND LATERAL 2 (most inpatients PM INFORMATION SYSTEMS PROFESSOR Dyspnea procedure are in VIEWS and all Headache the results outpatients) Sinusitis Acute section. Frontal Sinusitis Acute Maxillary documented in this encounter Results DX Chest AP or PA and Lateral 2 Views (01/16/2019 2:41 PM INFORMATION SYSTEMS PROFESSOR) Anatomical Region Laterality Modality Chest, Thoracic RST LOS, Thoracic ARZ LOS, Thoracic N/A Digital Radiography FLA LOS Specimen (Source) Anatomical Collection Method Collection Time Re ceived Time Location / / Volume Laterality 01/16/2019 2:59 PM INFORMATION SYSTEMS PROFESSOR Impressions 01/16/2019 3:02 PM INFORMATION SYSTEMS PROFESSOR No focal consolidation or pleural effusion. No pneumothorax. Normal heart size. Age-indeterminate moderate compression d eformity of a vertebral body at the thoracolumbar junction. Dedicated spine imaging could further evaluate. June 10, 2009 comparison. Narrative 01/16/2019 3:02 PM INFORMATION SYSTEMS PROFESSOR EXAM: DX CHEST AP OR PA AND LATERAL 2 VIEWS Procedure Note Mayco Mcpherson M.D. - 01/16/2019Forma tting of this note might be different from the original. EXAM: DX CHEST AP OR PA AND LATERAL 2 EWS IMPRESSION: No focal consolidation or pleural effusi on. No pneumothorax. Normal heart size. Age-indeterminate moderate compression d eformity of a vertebral body at the thoracolumbar junction. Dedicated spine imaging could further evaluate. June 10, 2009 comparison. Ramesy Luis M.D. IMG DIAGNOSTIC IMAGING PROCE CAMRON documented in this encounter Visit Diagnoses Diagnosis Cough Unspecified Type Dyspnea Headache Unspecified Sinusitis Acute Frontal Sinusitis Acute Maxillary Niuean Language Deficit - Primary General Medical Examination Adult Hypothyroidism Acquired Arthritis Rheumatoid (HCC) High Risk Medication History Of Falling Encounter For COVID-19 Vaccine Immunizat ion Need Vaccine Immunization Influenza Encounter For Other Screening For Malign ant Neoplasm Of Breast documented in this encounter Care Teams Tree Doctor Relationship Specialty Start Date End Date Cynthia Rockwell, SOHAN, C.N.P. PCP - General 08/16/16 [address] [place] [phone] documented as of this encounter
--- OUTSIDE RECORDS SUMMARY | 2022-01-21 23:23 | XMS_ITS | Encounter Summary ---
:1955 Author Organization [facility] Address [address] [place] [address] Care Team Providers Name Role Phone Cynthia Rockwell APRN, C.N.P. Primary Care Provider [phone] Reason for Visit Reason Onset Date Comments Outpatient COVID-19 Testing 07/15/2019 Encounter Details Date Type Department Care Team Description 07/15/2019 External Outreach Department of [facility] Adam Johnson [facility], Dilip Good M.D. Respiratory (Primary Clinic, in [place], [address] [place] [phone] Social History Tobacco Use Types Packs/Day Years Used Date Smoking Tobacco: Never Assessed Alcohol Habits Answer Date Recorded How often [...] or getting things needed for daily living? Sex Assigned at Date Recorded Not on file documented as of this encounter Progress Notes Maycol Kim R.N. - 07/15/2019 12:23 PM CDT Encounter created for the drive-through COVID-19 testing. documented in this encounter Plan of Treatment Upcoming Encounters Date Type Specialty Care Team Description 02/01/2022 Comprehensive Visit Family Medicine Cynthia Rockwell A PRN, C.N.P. [address] [place], [place] [phone] (Wo rk) documented as of this encounter Procedures Procedure Name Priority Date/Time Associated Diagnosis Comme nts SARS CORONAVIRUS-2, Routine 07/15/2019 12:29 PM Infection Uppe r Results for this PCR CDT Respiratory procedure are i n the results section. documented in this encounter Results (ABNORMAL) SARS Coronavirus-2, PCR (07/15/2019 12:29 PM CDT) [facility] gist Method Time Signature SARS Swab, 07/15/2019 [facility]TL Coronavirus-2 Nasopharynx 11:54 PM Source CDT SARS Detected (C) Undetected 07/15/2019 DTL Coronavirus-2 11:54 PM , PCR CDT Comment: SARS-CoV-2 RNA present. ----ADDITIONAL INFORMATION---- This test was developed and its performa nce characteristics determined by [facility] in a manner co nsistent with CLIA requirements. Independent review by the U.S. Food and Drug Administration is pending. Visit the CDC website: https://www.cdc.gov/coronavirus/ ?? for the most recent guidelines on Rainey virus testing. Fact Sheet for Healthcare Providers: (https://www.Earbits.Teliris/it-mmfil es/ Provider_Fact_Sheet_for_[facility]_COVI D-19.pdf) Fact Sheet for Patients: (https://www.Earbits.Teliris/it-mmfil es/ Patient_Fact_Sheet_for_COVID-19.pdf) Specimen Anatomical Collection Method Collection Time Receive d Time (Source) Location / / Volume Laterality Varies 07/15/2019 12:29 07/15/2019 2:19 (Nasopharynx) PM CDT PM CDT Florentino Jimenes M.D. LAB MICROBIOLOGY - GENERAL O RDERABLES Performing Organization Address City/State/ZIP Code Phon e Number [facility] [address] [place], [place] [address] [facility] [place] [address] [facility] [address] documented in this encounter Visit Diagnoses Diagnosis Infection Upper Respiratory - Primary Bangladeshi Language Deficit - Primary General Medical Examination Adult Hypothyroidism Acquired Arthritis Rheumatoid (HCC) High Risk Medication History Of Falling Encounter For COVID-19 Vaccine Immunizat ion Need Vaccine Immunization Influenza Encounter For Other Screening For Malign ant Neoplasm Of Breast documented in this encounter Additional Health Concerns Infection Onset Date Last Indicated Resolved Time COVID19 Pending 07/15/2019 07/15/2019 07/15/2019 11:56 PM CDT documented as of this encounter Care Teams Radiology Practitioner Assistant Relationship Specialty Start Date End Date Cynthia Rockwell APRN, C.N.P. PCP - General 08/16/16 [address] [place] [phone] documented as of this encounter
--- OUTSIDE RECORDS SUMMARY | 2022-01-21 23:23 | XMS_ITS | Encounter Summary ---
:1955 Author Organization [facility] Address [address] [place] [address] Care Team Providers Name Role Phone Cynthia Rockwell APRN, C.N.P. Primary Care Provider [phone] Reason for Referral Outpatient (Routine) - Closed Specialty Diagnoses / Procedures Referred By Contact Refer red To Contact Diagnoses Bursitis Trochanteric Left Onofre Bowman M.D. [facility] Procedures Large Joint Injection 1 [facility] [place], [place] [address] Referral ID Status Reason Start Date Expiration Date Visits Requ ested Visits Authorized [id number] Closed 05/13/2019 05/12/2020 1 1 Outpatient (Routine) - Closed Specialty Diagnoses / Procedures Referred By Contact Refer red To Contact Diagnoses Primary Osteoarthritis Knee Bilateral Onofre Bowman M.D. [facility] Procedures Large Joint Injection: L knee joint 1 [facility] [place], [place] [address] Referral ID Status Reason Start Date Expiration Date Visits Requ ested Visits Authorized [id number] Closed 05/13/2019 05/12/2020 1 1 Reason for Visit Outpatient (Routine) - Closed Specialty Diagnoses / Procedures Referred By Contact Refer red To Contact Diagnoses Primary Osteoarthritis Knee Bilateral Bursitis Trochanteric Left Perry Arana APRN, [facility] Procedures RHU Non-Guided Aspiration/Injection - Large Joint C.N.P. [address] [place], [place] [phone] Referral ID Status Reason Start Date Expiration Date Visits Requ ested Visits Authorized [id number] Closed 05/13/2019 05/12/2020 1 1 Encounter Details Date Type Department Care Team Description 05/13/2019 Procedure visit Division of Perry Arana APRN, C.N.P. [address] [place] [id number] Primary Osteoarthritis Knee Bilateral; Rheumatology in Onofre Bowman M.D. [address] [place] [address] Bursitis Trochanteric Left [place], [place] [address] [place] [id number] Social History Tobacco Use Types Packs/Day Years [...] or relatives? How often do you attend yazidism or 1 to 4 times per year 09/01 mormonism services? Do you belong to any clubs or No 09/18/2018 organizations such as yazidism groups, unions, fraternal or athletic groups, or [...] on file documented as of this encounter Procedure Notes Onofre Bowman M.D. - 05/13/2019 2:20 PM CDTAssociated Order(s): Large Joint Injection: L knee joint Post-Procedure Diagnose(s): Primary Osteoarthritis Knee Bilateral Knee site- L knee joint : injection only Date/Time: 05/13/2019 2:16 PM Performed by: Onofre Bowman M.D. Authorized by: Onofre Bowman M.D. Care team members present 1. Madelin Garcia 2. Onofre Bowman M.D. PROCEDURE DETAILS Procedure Location knee Knee site: L knee joint Site prep: patient was prepped and draped in usual sterile fashion Patient position: seated Procedural approach: lateral and medial Procedure performed: injection only Needle gauge: 22 G, length: 1 1/2 in Procedural Medication The following medications were administered at the target site(s) Local anesthetic: 5 mL lidocaine 10 mg/mL (1 %) Corticosteroid: 80 mg triamcinolone acetonide 40 mg/mL CONSENT Consent obtained: verbal Consent given by: patient The benefits, risks and alternatives to the procedure and the potential need for sedation or anesthesia as well as the names, roles, and responsibilities of healthcare team members performing significant interventional tasks were discussed with the patient and/or decision maker. Account Leader was present. UNIVERSAL PROTOCOL All relevant documentation and testing were reviewed and available. All required blood products, implants, devices and or special equipment were made available as applicable. Pre-procedure verificationwas conducted and the correct site was marked if required. A fire risk assessment was done as applicable. The procedural time-out was conducted prior to performing the procedure and confirmed in a procedural pause. PRE-PROCEDURE DETAILS Procedure purpose: therapeutic Indications: Left knee pain Appropriate hand hygiene, gown, cap, mask, protective eyewear, sterile gloves, skin preparation, sterile drape, and strict aseptic technique were utilized as applicable for the procedure: yes Skin preparation: chlorhexidine SEDATION / ANESTHESIA Anesthesia method: local infiltration and topical application Topical application type: aerosol cold spray (topical ethyl chloride) Local infiltrate type: lidocaine 1% plain POST-PROCEDURE DETAILS Procedure completed successfully: yes Complications: no apparent complications Discharge instructions: ice area as needed for comfort and follow-up with ordering provider Other procedure detail: Verbal consent obtained with assistance of in-person Icelandic emergency room physician assistant. Onofre Bowman M.D. - 05/13/2019 2:20 PM CDTAssociated Order(s): Large Joint Injection Post-Procedure Diagnose(s): Bursitis Trochanteric Left : injection only Date/Time: 05/13/2019 2:20 PM Performed by: Onofre Bowman M.D. Authorized by: Onofre Bowman M.D. Care team members present 1. Madelin Garcia 2. Onofre Bowman M.D. PROCEDURE DETAILS Procedure Location hip Site prep: patient was prepped and draped in usual sterile fashion Patient position: side-lying Procedural approach: lateral Procedure performed: injection only Needle gauge: 22 G, length: 2.5 in Procedural Medication The following medications were administered at the target site(s) Local anesthetic: 2 mL lidocaine 10 mg/mL (1 %) Corticosteroid: 80 mg methylPREDNISolone acetate 40 mg/mL CONSENT Consent obtained: written UNIVERSAL PROTOCOL All relevant documentation and testing were reviewed and available. All required blood products, implants, devices and or special equipment were made available as applicable. Pre-procedure verificationwas conducted and the correct site was marked if required. A fire risk assessment was done as applicable. The procedural time-out was conducted prior to performing the procedure and confirmed in a procedural pause. PRE-PROCEDURE DETAILS Procedure purpose: therapeutic Indications: lateral hip pain Appropriate hand hygiene, gown, cap, mask, protective eyewear, sterile gloves, skin preparation, sterile drape, and strict aseptic technique were utilized as applicable for the procedure: yes Skin preparation: chlorhexidine SEDATION / ANESTHESIA Anesthesia method: topical application Topical application type: aerosol cold spray POST-PROCEDURE DETAILS Procedure completed successfully: yes Complications: no apparent complications Post-procedure instructions: post-procedure activity instructions provided, avoid submersion of procedure site for 48 hours and avoid strenuous activity for 2 days Discharge instructions: follow-up with ordering provider and ice area as needed for comfort Other procedure detail: Verbal consent obtained with assistance of in-person Icelandic emergency room physician assistant. documented in this encounter Plan of Treatment Upcoming Encounters Date Type Specialty Care Team Description 02/01/2022 Comprehensive Visit Family Medicine Cynthia Rockwell A PRN, C.N.P. [address] [facility] [place] [place] [phone] (Wo rk) documented as of this encounter Procedures Procedure Name Priority Date/Time Associated Diagnosis Comme nts LARGE JOINT Routine 05/13/2019 2:20 PM Bursitis Trochanteric Results for this INJECTION CDT Left procedure are i n the results section. RI ARTHCS ASP/INJ Routine 05/13/2019 2:20 PM Primary Osteoarth ritis Results for this MJR JT WO US CDT Knee Bilateral procedure are in the results section. RHU NON-GUIDED Routine 05/13/2019 1:38 PM Primary Osteoarthrit is ASPIRATION/INJECTI CDT Knee Bilatera l ON - LARGE JOINT Bursitis Trochanteric Left RHU NON-GUIDED Routine 05/13/2019 1:38 PM Primary Osteoarthrit is ASPIRATION/INJECTI CDT Knee Bilatera l ON - LARGE JOINT Bursitis Trochanteric Left documented in this encounter Results Large Joint Injection (05/13/2019 2:20 PM CDT) Narrative MMODAL - 05/13/2019 2:20 PM CDT Onofre Bowman M.D. ? 05/13/2019 ??2:21 PM : injection only Date/Time: 05/13/2019 2:20 PM Performed by: Onofre Bowman M.D. Authorized by: Onofre Bowman M.D. Care team members present 1. Madelin Garcia 2. Onofre Bowman M.D. PROCEDURE DETAILS Procedure Location hip Site prep: patient was prepped and drape d in usual sterile fashion ?? Patient position: side-lying Procedural approach: lateral Procedure performed: injection only Needle gauge: 22 G, length: 2.5 in Procedural Medication The following medications were administe red at the target site(s) Local anesthetic: 2 mL lidocaine 10 mg/m L (1 %) Corticosteroid: 80 mg methylPREDNISolone acetate 40 mg/mL CONSENT Consent obtained: written UNIVERSAL PROTOCOL All relevant documentation and testing w ere reviewed and available. All required blood products, implants, devic es and or special equipment were made available as applicable. Pre-proced ure verification was conducted and the correct site was marked if required. A fire risk assessment was done as applicable. The procedural time-out w as conducted prior to performing the procedure and confirmed in a procedu ral pause. PRE-PROCEDURE DETAILS Procedure purpose: therapeutic Indications: lateral hip pain Appropriate hand hygiene, gown, cap, mas k, protective eyewear, sterile gloves, skin preparation, sterile drape, and strict aseptic technique were utilized as applicable for the procedure : yes ?? Skin preparation: chlorhexidine SEDATION / ANESTHESIA Anesthesia method: topical application Topical application type: aerosol cold s pray POST-PROCEDURE DETAILS Procedure completed successfully: yes Complications: no apparent complications ?? Post-procedure instructions: post-proced ure activity instructions provided, avoid submersion of procedure site for 48 hours and avoid strenuous activity for 2 days Discharge instructions: follow-up with o rdering provider and ice area as needed for comfort Other procedure detail: Verbal consent o btained with assistance of in-person Icelandic emergency room physician assistant. Onofre Bowman M.D. PROCEDURE/MINOR SURGICAL ORD ERABLES Performing Organization Address City/State/ZIP Code Phon e Number MMODAL MMODAL NA RI ARTHCS ASP/INJ MJR JT WO US (05/13/2019 2:20 PM CDT) Narrative MMODAL - 05/13/2019 2:20 PM CDT Onofre Bowman M.D. ? 05/13/2019 ??2:21 PM Knee site- L knee joint : injection only Date/Time: 05/13/2019 2:16 PM Performed by: Onofre Bowman M.D. Authorized by: Onofre Bowman M.D. Care team members present 1. Madelin Garcia 2. Onofre Bowman M.D. PROCEDURE DETAILS Procedure Location knee Knee site: L knee joint Site prep: patient was prepped and drape d in usual sterile fashion ?? Patient position: seated Procedural approach: lateral and medial Procedure performed: injection only Needle gauge: 22 G, length: 1 1/2 in Procedural Medication The following medications were administe red at the target site(s) Local anesthetic: 5 mL lidocaine 10 mg/m L (1 %) Corticosteroid: 80 mg triamcinolone acet onide 40 mg/mL CONSENT Consent obtained: verbal Consent given by: patient The benefits, risks and alternatives to the procedure and the potential need for sedation or anesthesia as well as the names, roles, and responsibilities of healthcare team memb ers performing significant interventional tasks were discussed with the patient and/or decision maker. Account Leader was present. UNIVERSAL PROTOCOL All relevant documentation and testing w ere reviewed and available. All required blood products, implants, devic es and or special equipment were made available as applicable. Pre-proced ure verification was conducted and the correct site was marked if required. A fire risk assessment was done as applicable. The procedural time-out w as conducted prior to performing the procedure and confirmed in a procedu ral pause. PRE-PROCEDURE DETAILS Procedure purpose: therapeutic Indications: Left knee pain Appropriate hand hygiene, gown, cap, mas k, protective eyewear, sterile gloves, skin preparation, sterile drape, and strict aseptic technique were utilized as applicable for the procedure : yes ?? Skin preparation: chlorhexidine SEDATION / ANESTHESIA Anesthesia method: local infiltration an d topical application Topical application type: aerosol cold s pray (topical ethyl chloride) Local infiltrate type: lidocaine 1% plai n POST-PROCEDURE DETAILS Procedure completed successfully: yes Complications: no apparent complications ?? Discharge instructions: ice area as need ed for comfort and follow-up with ordering provider Other procedure detail: Verbal consent o btained with assistance of in-person [place]ic emergency room physician assistant. Onofre Bowman M.D. PROCEDURE/MINOR SURGICAL ORD ERABLES Performing Organization Address City/State/ZIP Code Phon e Number MMODAL MMODAL NA documented in this encounter Visit Diagnoses Diagnosis Primary Osteoarthritis Knee Bilateral Bursitis Trochanteric Left Bulgarian Language Deficit - Primary General Medical Examination Adult Hypothyroidism Acquired Arthritis Rheumatoid (HCC) High Risk Medication History Of Falling Encounter For COVID-19 Vaccine Immunizat ion Need Vaccine Immunization Influenza Encounter For Other Screening For Malign ant Neoplasm Of Breast documented in this encounter Administered Medications Inactive Administered Medications - up to 3 most recent administrations Medication Order MAR Action Action Date Dose Rate Site lidocaine 10 mg/mL (1 %) injection 2 Given 05/13/2019 2:20 PM CD T 2 mL mL (XYLOCAINE) 2 mL, infiltration, One-Time Injection, Starting on Sat05/13/19 at 1420, For 1 dose lidocaine 10 mg/mL (1 %) injection 5 mL Given 05/13/2019 2:16 PM CDT 5 mL (XYLOCAINE) 5 mL, infiltration, One-Time Injection, Starting on Sat05/13/19 at 1416, For 1 dose methylPREDNISolone acetate injection 80 mg Given 05/13/2019 2:20 PM CDT 80 mg (DEPO-Medrol) 80 mg, intra-articular, One-Time Injection, Starting on Sat05/13/19 at 1420, For 1 dose triamcinolone acetonide injection 80 mg Given 05/13/2019 2:16 PM CDT 80 mg (KENALOG-40) 80 mg, intra-articular, One-Time Injection, Starting on Sat05/13/19 at 1416, For 1 dose documented in this encounter Care Teams Pizza Delivery Relationship Specialty Start Date End Date Cynthia Rockwell, SOHAN, C.N.P. PCP - General 08/16/[address] [phone] documented as of this encounter
--- OUTSIDE RECORDS SUMMARY | 2022-01-21 23:23 | XMS_ITS | Encounter Summary ---
:1955 Author Organization [facility] Address [address] [place] [address] Care Team Providers Name Role Phone Cynthia Rockwell APRN, C.N.P. Primary Care Provider [phone] Encounter Details Date Type Department Care Team Description 03/02/2019 Orders Only [facility] - Cynthia Kelly APRN, [address] [place] [phone] [phone] [place], [place] [phone] (Wo rk) Social History [...] or relatives? How often do you attend baptist or 1 to 4 times per year 09/01 buddhist services? Do you belong to any clubs or No 09/18/2018 organizations such as baptist groups, unions, fraternal or athletic groups, or [...] Cynthia Rockwell A PRN, C.N.P. [address], [place] [phone] (Wo rk) documented as of this encounter Visit Diagnoses Not on filedocumented in this encounter Care Teams Yarding And Folding Machine Operator Relationship Specialty Start Date End Date Cynthia Rockwell APRN, C.N.P. PCP - General 08/16/16 [address] [place] [phone] documented as of this encounter
--- OUTSIDE RECORDS SUMMARY | 2022-01-21 23:23 | XMS_ITS | Encounter Summary ---
:1955 Author Organization [facility] Address [address] [place] [address] Care Team Providers Name Role Phone Cynthia Rockwell APRN, C.N.P. Primary Care Provider [phone] Reason for Visit Reason Comments Cough 2x weeks Encounter Details Date Type Department Care Team Description 01/16/2019 Office Visit Department of Ramsey Luis M.D . Cough (Primary Dx); [facility] [address], Dys pnea; Medicine in [place] [address] Headache; [place], [place] [address] Sinusitis Acute Frontal; [address] [place] [address] AVE Sinusitis Acute Maxillary; [place], [place] Arthritis Rheu matoid ([facility]) [id number] Social History Tobacco Use Types Packs/Day [...] Sign Reading Time Taken Comments Blood Pressure 115/65 01/16/2019 1:58 PM GENERAL ADMINISTRATOR Pulse 87 01/16/2019 1:58 PM GENERAL ADMINISTRATOR Temperature 36.3 ??C (97.3 ??F) 01/16/2019 1:58 PM GENERAL ADMINISTRATOR Respiratory Rate 28 01/16/2019 1:58 PM GENERAL ADMINISTRATOR Oxygen Saturation - - Inhaled Oxygen Concentration - - Weight 75.6 kg (166 lb 10.7 oz) 01/16/2019 1:58 PM GENERAL ADMINISTRATOR Height - - Body Mass Index 29.53 10/21/2018 6:58 AM CDT documented in this encounter Progress Ramsey Cummings M.D. - 01/16/2019 2:15 PM CST SUBJECTIVE CHIEF COMPLAINT/ REASON FOR VISIT 1. Cough with shortness of breath for 2 weeks 2. Headache HISTORY OF PRESENT ILLNESS Althea Arias is a 63 y.o. female who presents to the clinic today with her son for above complaints. The patient and her son declined loss prevention manager service. She is new to Internal Medicine Department at [facility] in [place]. Her primary care provider is Cynthia Rockwell. She has history of rheumatoid arthritis, osteoarthritis and fibromyalgia. For the last 2 weeks, she has not been feeling well. She has been coughing. She coughs up clear sputum. She denies hemoptysis. She has chest discomfort aggravated by coughing spell. She has shortness of breath. She denies chest congestion or wheezing. She has headache over the maxillary and frontal sinuses. She does not have problem with ear. There is no ear pain or discharge. She thought she may have fever. She did not check temperature athome. She has been taking Tylenol and ibuprofen at home. She has good appetite. She denies nausea, vomiting, abdominal pain, dysuria or hematuria. She has low back pain which is chronic. I reviewed and updated medical record. Medication reconciliation was done. I answered all of their questions. Patient does not have additional questions, concerns, or complaints. MEDICATIONS Current Outpatient Medications Medication Sig Dispense Refill ??? acetaminophen (TYLENOL) 500 mg tablet Take 2 tablets (1,000 mg total) by mouth every 8 (eight) hours as needed for moderate pain or score 4-6 of 10. 100 tablet 11 ??? ammonium lactate (AMLACTIN) 12 % cream APPLY CREAM TOPICALLY TO AFFECTED AREA ONCE DAILY 140 g 2 ??? chlorhexidine (PERIDEX) 0.12 % mouthwash Swish and spit 2 (two) times a day. 15 mL 473 mL 3 ??? diclofenac sodium (VOLTAREN) 1 % gel Apply 2 g topically 4 (four) times a day as needed (joint pain). 1 Tube 11 ??? DULoxetine (CYMBALTA) [address] capsule Take 1 capsule (60 mg total) by mouth 2 (two) times a day. 60 capsule 11 ??? folic acid 1 mg tablet Take 1 tablet (1,000 mcg total) by mouth daily. 90 tablet 3 ??? leflunomide (ARAVA) 20 mg tablet Take 1 tablet (20 mg total) by mouth daily. 30 tablet 6 ??? levothyroxine (LEVOXYL) 75 mcg tablet Take 1 tablet (75 mcg total) by mouth daily. 90 tablet 3 ??? meclizine (ANTIVERT) 25 mg tablet Take 25 mg by mouth. ??? methotrexate 2.5 mg tablet Take 8 tablets (20 mg total) by mouth once a week. 32 tablet 5 ??? olopatadine (PATANOL) 0.1 % ophthalmic solution Administer 1 drop into both eyes 2 (two) times aday. 5 mL 5 ??? omeprazole (PriLOSEC) [address] capsule Take 1 capsule (20 mg total) by mouth every morning before breakfast. 30 capsule 11 ??? oxyCODONE (ROXICODONE) 5 mg immediate release tablet Take 1 tablet (5 mg total) by mouth every 4(four) hours as needed for pain Indication: Acute Pain. 15 tablet 0 ??? predniSONE (DELTASONE) 5 mg tablet Take 1 tablet (5 mg total) by mouth daily. 90 tablet 0 ??? promethazine-codeine (PHENERGAN with CODEINE) 6.25-10 mg/5 mL syrup Take 5- 10 mL by mouth every 4 (four) hours as needed for cough. 120 mL 0 No current facility-administered medications for this visit. ALLERGIES/CONTRAINDICATIONS No Known Allergies SYSTEMS REVIEW Please see history of present illness for pertinent positives, otherwise rest of review of systems negative. MEDICAL HISTORY Past Medical History: Diagnosis Date ??? Arthritis Rheumatoid (HCC) 12/14/2014 Arthritis Rheumatoid ??? DJD (OA) Knee NOS 07/30/2013 ??? Dyspepsia 08/30/2011 ??? Functional Incontinence Urinary 07/04/2017 ??? High Risk Medication 03/30/2015 ??? Hypothyroidism Acquired 01/19/2016 ??? Osteopenia 05/15/2009 ??? Primary Osteoarthritis Knee Bilateral 07/30/2013 SURGICAL HISTORY Past Surgical History: Procedure Laterality Date ??? EXCISION SOFT TISSUE LESION HAND Right 10/21/2018 Procedure: THUMB, INDEX FINGER LESION EXCISION.; Surgeon: Guillermina Mullins M.B.B.S.; Location: [facility] ROM OR ??? NO PAST SURGERIES SOCIAL HISTORY Social History Socioeconomic History ??? Marital status: Spouse name: None ??? Number of children: None ??? Years of education: None ??? Highest education level: 1st grade Occupational History ??? None Social Needs ??? Financial resource strain: Not hard at all ??? Food insecurity: Worry: Never true Inability: Never true ??? Transportation needs: Medical: No Non-medical: No Tobacco Use ??? Smoking status: Never Smoker ??? Smokeless tobacco: Never Used Substance and Sexual Activity ??? Alcohol use: No Frequency: Never Drinks per session: Patient refused Binge frequency: Never ??? Drug use: No ??? Sexual activity: Never Lifestyle ??? Physical activity: Days per week: 1 day Minutes per session: 10 min ??? Stress: Very much Relationships ??? Social connections: Talks on phone: More than three times a week Gets together: Three times a week Attends lutheran service: 1 to 4 times per year Active member of club or organization: No Attends meetings of clubs or organizations: Never Relationship status: None ??? Intimate partner violence: Fear of current or ex partner: No Emotionally abused: No Physically abused: No Forced sexual activity: None Other Topics Concern ??? None Social History Narrative ??? None Social History Substance and Sexual Activity Drug Use No Social History Substance and Sexual Activity Alcohol Use No ??? Frequency: Never ??? Drinks per session: Patient refused ??? Binge frequency: Never FAMILY HISTORY Family History Problem Relation Age of Onset ??? KAREN disease Brother OBJECTIVE VITAL SIGNS Vitals: 01/16/19 1358 BP: 115/65 Patient Position: Sitting Pulse: 87 Temp: 36.3 ??C Resp: (!) 28 Weight: 75.6 kg TempSrc: Temporal PHYSICAL EXAMINATION General: Patient is sitting. No distress. Able to talk without interruption. Head: She has tenderness over the frontal and maxillary sinuses. No facial rash or asymmetry. Eyes: PERRLA. EOMI. No pallor, icterus or conjunctivitis. ENT: No nasal congestion, discharge or bleeding. There is no ear infection or discharge. No mastoid tenderness. Tongue is moist and midline. No oral lesions. Lymph nodes: No cervical or supraclavicular lymphadenopathy. Peripheral vessels: Good radial pulses. Heart: No carotid bruit. No JVD. Regular rhythm. There is no S3, gallop, murmur or thrill. Lungs: Normal respiratory effort. Clear to auscultation. Abdomen: Moves with respiration. Bowel sounds present. Soft. No rebound tenderness, guarding or rigidity. Extremities: No clubbing, cyanosis, edema, infection or calf tenderness. Gait: No abnormal gait. Mental: Alert and oriented x 3. Normal mood and affect. Neuro: Grossly nonfocal exam. ASSESSMENT / PLAN #1 Cough #2 Dyspnea #3 Headache #4 Sinusitis Acute Frontal #5 Sinusitis Acute Maxillary Advised her to take Levaquin 500 mg by mouth daily for 7 days. Prescription for Phenergan with codeine cough syrup was given. She can take 5-10 mL by mouth every 4 hours as needed for cough. She shoulddrink plenty of water. She can take [id number] Tylenol for headache and sinus pain. It was decided to get chest x-ray, complete blood count and basic metabolic panel. She should contact our office or primary care provider office if she continued to have problem or worsening of symptoms. #6 Arthritis Rheumatoid (HCC) She will continue medications prescribed by Hematology. #7 Today Studies Following studies were done today: BMP, CBC and chest x-ray. #8 Follow-up Visit She will follow with her primary care provider. Return to the clinic as needed. RAL ADMINISTRATOR documented in this encounter Plan of Treatment Upcoming Encounters Date Type Specialty Care Team Description 02/01/2022 Comprehensive Visit Family Medicine Cynthia Rockwell A PRN, C.N.P. [address] [place] [phone] (Wo rk) documented as of this encounter Procedures Procedure Name Priority Date/Time Associated Diagnosis Comme nts CBC WITHOUT Routine 01/16/2019 2:31 PM Cough Results for this DIFFERENTIAL, B GENERAL ADMINISTRATOR Dyspnea procedure are in Headache the results Sinusitis Acute section. Frontal Sinusitis Acute Maxillary BASIC METABOLIC Routine 01/16/2019 2:31 PM Cough Results for this PANEL, S/P GENERAL ADMINISTRATOR Dyspnea procedure are in Headache the results Sinusitis Acute section. Frontal Sinusitis Acute Maxillary documented in this encounter Results DX Chest AP or PA and Lateral 2 Views (01/16/2019 2:41 PM GENERAL ADMINISTRATOR) Anatomical Region Laterality Modality Chest, Thoracic RST LOS, Thoracic ARZ LOS, Thoracic N/A Digital Radiography FLA LOS Specimen (Source) Anatomical Collection Method Collection Time Re ceived Time Location / / Volume Laterality 01/16/2019 2:59 PM GENERAL ADMINISTRATOR Impressions 01/16/2019 3:02 PM GENERAL ADMINISTRATOR No focal consolidation or pleural effusion. No pneumothorax. Normal heart size. Age-indeterminate moderate compression d eformity of a vertebral body at the thoracolumbar junction. Dedicated spine imaging could further evaluate. June 10, 2009 comparison. Narrative 01/16/2019 3:02 PM GENERAL ADMINISTRATOR EXAM: DX CHEST AP OR PA AND [...] could further evaluate. June 10, 2009 comparison. Ramsey Luis M.D. IMG DIAGNOSTIC IMAGING PROCE CAMRON Basic Metabolic Panel (01/16/2019 2:31 PM GENERAL ADMINISTRATOR) P athologist Signature Potassium, S 3.6 3.6 - 5.2 01/16/2019 [place] mmol/L 6:24 PM GENERAL ADMINISTRATOR Sodium, S 141 135 - 145 01/16/2019 [place] mmol/L 6:24 PM GENERAL ADMINISTRATOR Chloride, S 102 98 - 107 01/16/2019 [place] mmol/L 6:24 PM GENERAL ADMINISTRATOR Bicarbonate, S 27 22 - 29 01/16/2019 [place] mmol/L 6:24 PM GENERAL ADMINISTRATOR Anion Gap 12 7 - 15 01/16/2019 [place] 6:24 PM GENERAL ADMINISTRATOR BUN (Blood Urea 10 6 - 21 01/16/2019 [place] Nitrogen), S mg/dL 6:24 PM GENERAL ADMINISTRATOR Creatinine 0.63 0.59 - 01/16/2019 [place] 1.04 mg/dL 6:24 PM GENERAL ADMINISTRATOR eGFR-Non >90 >=60 01/16/2019 [place] Black/ mL/min/BSA 6:24 PM GENERAL ADMINISTRATOR Polish Comment: ----ADDITIONAL INFORMATION---- Estimated GFR calculated using the 2009 CKD_EPI creatinine equation. eGFR-Black/ >90 >=60 mL/min/BSA 2018 6:24 PM GENERAL ADMINISTRATOR [place] Comment: ----ADDITIONAL INFORMATION---- Estimated GFR calculated using the 2009 CKD_EPI creatinine equation. Calcium, Total, S 9.1 8.8 - 10.2 mg/dL 01/16/2019 6:24 PM GENERAL ADMINISTRATOR [place] Glucose, S 102 70 - 140 mg/dL 01/16/2019 6:24 PM GENERAL ADMINISTRATOR O [place] Specimen Anatomical Collection Method Collection Time Receive d Time (Source) Location / / Volume Laterality Blood (Blood, 01/16/2019 2:31 PM 01/17/20 19 5:44 Venous) GENERAL ADMINISTRATOR PM GENERAL ADMINISTRATOR Ramsey Luis M.D. LAB BLOOD ADD-ON Performing Organization Address City/State/ZIP Code Phon e Number [facility]- [address] [place] [address] [place] [address] System in [place] [address] CBC without Differential (01/16/2019 2:31 PM GENERAL ADMINISTRATOR) P athologist Signature Hemoglobin 13.5 11.6 - 01/16/2019 FB60 15.0 g/dL 2:49 PM GENERAL ADMINISTRATOR Hematocrit 43.3 35.5 - 01/16/2019 FB60 44.9 % 2:49 PM GENERAL ADMINISTRATOR Erythrocytes 4.78 3.92 - 01/16/2019 FB60 5.13 2:49 PM GENERAL ADMINISTRATOR x10(12)/L MCV 90.6 78.2 - 01/16/2019 FB60 97.9 fL 2:49 PM GENERAL ADMINISTRATOR RBC Distrib Width 13.7 12.2 - 01/16/2019 FB60 16.1 % 2:49 PM GENERAL ADMINISTRATOR Platelet Count 219 157 - 371 01/16/2019 FB60 x10(9)/L 2:49 PM GENERAL ADMINISTRATOR Leukocytes 5.3 3.4 - 9.6 01/16/2019 FB60 x10(9)/L 2:49 PM GENERAL ADMINISTRATOR Specimen Anatomical Collection Method Collection Time Receive d Time (Source) Location / / Volume Laterality Blood (Blood, 01/16/2019 2:31 PM 01/17/20 2:31 Venous) GENERAL ADMINISTRATOR PM GENERAL ADMINISTRATOR Ramsey Luis M.D. LAB BLOOD ADD-ON Performing Organization Address City/State/ZIP Code Phon e Number [address] [place] [address] [facility] [address] [place] [address] System in [address] documented in this encounter Visit Diagnoses Diagnosis Cough Unspecified Type - Primary Dyspnea Headache Unspecified Sinusitis Acute Frontal Sinusitis Acute Maxillary Arthritis Rheumatoid (HCC) Cough Unspecified Type Dyspnea Headache Unspecified Sinusitis Acute Frontal Sinusitis Acute Maxillary Sao Tomean Language Deficit - Primary General Medical Examination Adult Hypothyroidism Acquired Arthritis Rheumatoid (HCC) High Risk Medication History Of Falling Encounter For COVID-19 Vaccine Immunizat ion Need Vaccine Immunization Influenza Encounter For Other Screening For Malign ant Neoplasm Of Breast documented in this encounter Care Teams Biostatistics Manager Relationship Specialty Start Date End Date Cynthia Rockwell, SOHAN, C.N.P. PCP - General 08/16/16 [address] [place] [phone] documented as of this encounter
--- OUTSIDE RECORDS SUMMARY | 2022-01-21 23:23 | XMS_ITS | Encounter Summary ---
:1955 Author Organization [facility] Address [address] [place] [address] Care Team Providers Name Role Phone Cynthia Rockwell APRN C.N.PShelton Primary Care Provider [phone] Reason for Visit Outpatient (Routine) - Closed Specialty Diagnoses / Procedures Referred By Contact Refer red To Contact Orthopedic Surgery Diagnoses Arthritis Rheumatoid ([facility]) Guillermina Mullins M.B.BSheltonS. [facility] [address] [place] [phone] Referral ID Status Reason Start Date Expiration Date Visits Requ ested Visits Authorized [id number] Closed 09/26/2018 09/26/2019 1 1 Encounter Details Date Type Department Care Team Description 10/31/2018 Office Visit Department of Nina Rodriguez Arthritis Rheumatoid Orthopedic Surgery in [place] .[place] ([facility]) [place], [place] [address] [place] [address] [place] [phone] Social History Tobacco Use Types Packs/Day Years [...] or relatives? How often do you attend sikhism or 1 to 4 times per year 09/01 sabianist services? Do you belong to any clubs or No 09/18/2018 organizations such as sikhism groups, unions, fraternal or athletic groups, or [...] documented as of this encounter Progress Notes Nina Rodriguez P.A.-C., M.S. - 10/31/2018 2:30 PM CDT SUBJECTIVE REASON FOR FOLLOW-UP Althea Arias is a 63 y.o. female who presents for follow-up visit status post excision of rheumatoid nodules from right thumb, index and long fingers, performed on 10/21/2018. Service of Dr. Guillermina Mullins. HISTORY OF PRESENT ILLNESS Mrs. Arias is a pleasant, 63-year-old female who returns today 10 days from the above-noted procedure. She is accompanied today by her son and an Romansh interpreter translator, who was present throughout the entirety of the visit. Overall, she reports to be doing well postoperatively in her left hand and upperextremity. Of note, her history is significant for presenting to the ED in [place] recently for dizziness. At that time, her postop dressings were removed to her right hand. Her right fingers and thumb were redressed and Flexinet dressings, which she has kept clean, dry and intact. She reports that her postop discomfort is gradually improving. She inquired about a refill of her oxycodone today. She denies recent fevers, chills, purulent drainage or other signs or symptoms of infection. She is doing well otherwise and has no other pressing questions or concerns today per REVIEW OF SYSTEMS Review of Systems OBJECTIVE PHYSICAL EXAM Ortho Exam General: Patient is alert and oriented x3, in no acute distress. Patient participated in the exam asexpected. Flexinet dressings are clean, dry and intact over the right thumb, index and long fingers. Musculoskeletal: Dressings were removed and right hand and fingers were examined. Upon inspection, surgical incisions are well approximated and without dehiscence, erythema, cellulitis, purulent drainage or other signs of infection. Prolene sutures are clean, dry and intact. There is minimal edema adjacent to the surgical incisions without erythema or ecchymosis. Patient is neurovascularly intact to the radial, median, and ulnar nerve distributions of the hand. Patient is able to actively flex and extend her right fingers and thumb, but is limited motion due to her history of rheumatoid arthritis. She is nontender to gentle palpation to her right hand or fingers. ASSESSMENT / PLAN #1 Arthritis Rheumatoid (HCC) Overall, Mrs. Arias is healing well postoperatively in her right upper extremity. All sutures wereremoved today without complication and her incisions were dressed in Xeroform and Flexinet dressings. She was instructed to keep these in place for the next 24 hr, after which she may remove the dressings and resume washing and showering her right hand as tolerated. She was also provided with additional wound care supplies today to wear as needed over her surgical incisions until they fully heal. Shewas advised against soaking or submerging the right hand or fingers for the next 7-10 days as this will delay wound healing and increase the risk of infection. Signs and symptoms of infection were discussed in detail. I had an extensive discussion with the patient today regarding narcotic pain medications, stating that it is preferable for her to control her postop pain and discomfort at this point in time with [id number] anti-inflammatories such as Tylenol or Aleve as needed. She was also encouraged to rest and elevate her right upper extremity as needed for swelling and discomfort. She willfollow up on as-needed basis. Should she have any future questions or concerns, she was encouraged to contact the service and was provided with Dr. Mullins's business card. Otherwise, all questions were a nswered today to the best of my abilities and to the patient's satisfaction. documented in this encounter Plan of Treatment Upcoming Encounters Date Type Specialty Care Team Description 02/01/2022 Comprehensive Visit Family Medicine Cynthia Rockwell A PRN, C.N.P. [address] [place], [place] [phone] (Wo rk) documented as of this encounter Visit Diagnoses Diagnosis Arthritis Rheumatoid (HCC) Micronesian Language Deficit - Primary General Medical Examination Adult Hypothyroidism Acquired Arthritis Rheumatoid (HCC) High Risk Medication History Of Falling Encounter For COVID-19 Vaccine Immunizat ion Need Vaccine Immunization Influenza Encounter For Other Screening For Malign ant Neoplasm Of Breast documented in this encounter Care Teams Tank Truck Operator Relationship Specialty Start Date End Date Cynthia Rockwell, SOHAN, C.N.P. PCP - General 08/[address] [place] [phone] documented as of this encounter
--- OUTSIDE RECORDS SUMMARY | 2022-01-21 23:24 | XMS_ITS | Encounter Summary ---
:1955 Author Organization [facility] Address [address] [place] [address] Care Team Providers Name Role Phone Cynthia Rockwell APRN, C.N.P. Primary Care Provider [phone] Encounter Details Date Type Department Care Team Description 02/12/2018 Clinical Communication Division of Petra Martines Rheumatology in [place], C.N.P. [place], [place] [address] [facility] [address] [place] [phone] Social History Tobacco Use Types Packs/Day Years [...] 1 to 4 times per year 09/01 judaism services? Do you belong to any clubs [...] this encounter Miscellaneous Notes Telephone Encounter - Otilia Sharp - 02/12/2018 12:32 PM CST Petra Patient o your schedule for 02/20. (EST)[place] She would like to do labs in [place]. Can you order? Thank you Otilia NEERING PROGRAMMER documented in this encounter Plan of Treatment Upcoming Encounters Date Type Specialty Care Team Description 02/01/2022 Comprehensive Visit Family Medicine Cynthia Rockwell A PRN, C.N.P. [address], [place] [phone] (Wo rk) documented as of this encounter Visit Diagnoses Not on filedocumented in this encounter Care Teams Tea And Spice Supervisor Relationship Specialty Start Date End Date Cynthia Rockwell APRN, C.N.P. PCP - General 08/16/16 [address] [address] documented as of this encounter
--- OUTSIDE RECORDS SUMMARY | 2022-01-21 23:24 | XMS_ITS | Encounter Summary ---
:1955 Author Organization [facility] Address [address] [place] [address] Care Team Providers Name Role Phone Cynthia Rockwell APRN C.N.PShelton Primary Care Provider [phone] Reason for Referral Outpatient (Routine) - Closed Specialty Diagnoses / Procedures Referred By Contact Refer red To Contact Plastic Surgery Diagnoses Arthritis Rheumatoid ([facility] [address] [place] [address] Referral ID Status Reason Start Date Expiration Date Visits Requ ested Visits Authorized [id number] Closed 10/21/2018 10/21/2019 1 1 Reason for Visit Auth/Cert Specialty Diagnoses / Procedures Referred By Contact Refer red To Contact Diagnoses Arthritis Rheumatoid (HCC) Arthritis Rheumatoid (HCC) [M06.9] Procedures MO EXCISN BN PROX/MID PHAL PRTL THUMB AND INDEX FINGER LESION EXCISION Referral ID Status Reason Start Date Expiration Date Visits Requ ested Visits Authorized [id number] 1 1 Encounter Details Date Type Department Care Team Description 10/21/2018 Hospital Encounter RST ROMB MAIN OR Guillermina Mullins, Arthritis Rheumatoid [address] [facility] [place], [place] [address] [facility] [address] [place], [place] [phone] Social History Tobacco Use Types Packs/Day Years [...] Sign Reading Time Taken Comments Blood Pressure 129/102 10/21/2018 9:35 AM CDT Pulse 74 10/21/2018 9:40 AM CDT Temperature 36.6 ??C (97.9 ??F) 10/21/2018 9:55 AM CDT Respiratory Rate 19 10/21/2018 9:40 AM CDT Oxygen Saturation 97% 10/21/2018 9:40 AM CDT Inhaled Oxygen Concentration - - Weight 73.5 kg (162 lb 0.6 oz) 10/21/2018 6:58 AM CDT Height 160 cm (5' 2.99) 10/21/2018 6:58 AM CDT Body Mass Index 28.71 10/21/2018 6:58 AM CDT documented in this encounter Medications at Time of Discharge Medication Sig Dispensed Refills Start Date End Date DULoxetine (CYMBALTA) 60 Take 1 capsule ([address] capsuleIndications: mg total) by mouth Fibromyalgia 2 (two) times a day. acetaminophen (TYLENOL) Take 2 tablets 100 tablet 09/19/19 19 04/14/2019 500 mg tabletIndications: (1,000 [...] mcg total) by mouth Hypothyroidism Acquired daily. methotrexate 2.5 mg Take 8 tablets (20 [...] daily. (HCC) documented as of this encounter OR Notes Op Note - Vicente Bledsoe M.B.B.SShelton - 10/21/2018 8:39 AM CDT FULL OP NOTE Procedure(s) (LRB): THUMB, INDEX FINGER LESION EXCISION. (Right) Surgeon(s) and Role: * Guillermina Mullins M.B.B.S. - Primary * Vicente Bledsoe M.B.B.S. - Mini Bar Attendant Anesthesia Type Regional Pre-operative Diagnosis Arthritis Rheumatoid (HCC) [M06.9]. Post-operative Diagnosis Same as pre-operative diagnosis Findings As expected Complications None Description of Procedure The patient was seen evaluated the preoperative area. Next, the patient was consented and site marked. We had the a discussion regarding the lesion at the middle finger, the consent was obtained verbally from the patient via main clinic certified cash management officer, and she expressed her desire to proceed with excision of the lesion at the middle finger in addition to the index and thumb which where the patient consented for at the clinic. Next, the patient was brought back to the operating room. In the operating room, the anesthesia teamperformed a upper extremity nerve block successful, and the patient was placed under sedation. Next,we start prepping and draping the patient in the usual sterile fashion. Next, a surgical pause was performed confirming the patient's name, clinic number, procedures, the updated version of the consentincluding the excision of the middle finger lesion. All team members were in agreement. We started the procedure by making a mid lateral incision at the PIP joint exposing the lesion of the index finger 1cm x1cm , decision was made by 15, meticulously the skin flap was elevated with minimal trauma , the lesion was exposed with a tenotomy scissor, the neurovascular bundle was visualized and protected throughout the dissection. We were able to excise the the lesion 1 cm x 1 cm and send itas 1 piece for pathology for permanent section. In a similar fashion, utilizing a direct incision over the 2 lesions of the volar aspect of the thumb each is 1.4 cm x 1.4 cm , a 15 blade was used to incise the skin, the skin was elevated meticulously with minimal trauma, both lesion were exposed with tenotomy scissor, the neurovascular bundle againwas visualized and protected throughout the dissection, the lesions were excised and sent for pathology for permanent section. We also excised a lesion that smaller in size distal and the thumb volar aspect pulp. Finally, after confirming the consent with the operating team, utilizing a direct incision longitudinal over the PIP joint, 15 blade was used to incise the skin, tenotomy scissor was used to elevate the skin meticulously with minimal trauma, the lesion 1.2x 1.2 was identified and excised and sent for pathology as 1 piece. At the end of the procedure, hemostasis was achieved. And the tourniquet was let down, we closed allthe incision with interrupted simple 4-0 Prolene sutures. The patient was dressed in soft dressing. Specimens ID Type Source Tests Collected by Time A : right thumb lesion Tissue Thumb, Right SURGICAL PATHOLOGY, [facility] Guillermina Mullins M.B.B.S. 10/21/2018 0859 B : right middle finger lesion Tissue Finger, Right SURGICAL PATHOLOGY, Guillermina Oneill M.B.B.S. 10/21/2018 09 C : right index finger lesion Tissue Finger, Right SURGICAL PATHOLOGY, [facility] Guillermina Mullins M.B.B.S. 10/21/2018 0847 Drains None Estimated Blood Loss 5 mL Implants None Danay Harris Brief Op Note - Vicente Bledsoe M.B.B.SShelton - 10/21/2018 8:39 AM CDT BRIEF OP NOTE Procedure(s) (LRB): THUMB, INDEX FINGER LESION EXCISION. (Right) Surgeon(s) and Role: * Guillermina Mullins M.B.B.S. - Primary * Vicente Bledsoe M.B.B.SShelton - Mini Bar Attendant Anesthesia Type Regional Pre-operative Diagnosis * Arthritis Rheumatoid (HCC) [M06.9] Findings As expected Complications None Specimens ID Type Source Tests Collected by Time A : right thumb lesion Tissue Thumb, Right SURGICAL PATHOLOGY, Guillermina Oneill M.B.B.S. 10/21/2018 0859 B : right middle finger lesion Tissue Finger, Right SURGICAL PATHOLOGY, Guillermina Oneill M.B.B.S. 10/21/2018 0901 C : right index finger lesion Tissue Finger, Right SURGICAL PATHOLOGY, [facility] Guillermina Mullins M.B.B.S. 10/21/2018 0847 Drains None Estimated Blood Loss 5 mL Implants None Ramiro HarrisS. documented in this encounter Plan of Treatment Upcoming Encounters Date Type Specialty Care Team Description 02/01/2022 Comprehensive Visit Family Medicine Cynthia Rockwell A PRN, C.N.P. [address] [place], [place] [phone] (Wo rk) Scheduled Referrals Name Type Priority Associated Diagnoses Order S chedule Plastic Surgery Outpatient Referral Routine Arthritis Rheumato id Expected: Post Op (clinic) ([facility]) 10/21/2018 (Approximate), Expires: 10/21/2021 documented as of this encounter Procedures Procedure Name Priority Date/Time Associated Diagnosis Comme nts SURGICAL PATHOLOGY, Routine 10/21/2018 8:47 AM Arthritis Rheum atoid Results for this [facility] CDT ([facility]) procedure are i n the results section. EXCISION SOFT 10/21/2018 7:29 AM Arthritis Rheumatoid TISSUE LESION HAND CDT ([facility]) documented in this encounter Results Surgical Pathology, [facility] (10/21/2018 8:47 AM CDT) Component Value Ref Test Analysis Performed At [facility] Range Method Time Signature Gross Description A. ??Received fresh labeled right index finge r lesion is a 10/22/2018 0.7 x 0.7 x 0.6 cm well-circumscribed, diaz-white nodule. 1:50 PM CDT The cut surface is diaz-white, solid, and rubbery. ??All submitted for permanent sections. ??Grossed by HAYDEN/YELENA. B. ??Received fresh labeled right thumb lesion is a 1.7 x 1.4 x 1 cm aggregate of diaz-white nodular tissue. ??The cut surface is diaz-white, solid, and rubbery. ??All submitted for permanent sections. ??Grossed by EXC/YELENA. C. ??Received fresh labeled right middle finger lesion is a 0.9 x 0.5 cm unoriented ellipse of skin with a 0.6 x 0.5 x 0.4 cm fibrous subcutaneous nodule. ??All submitted for permanent sections. ??Grossed by EXC. Participated in Nina Hameed 10/22/2018 the Sandrita, 1:50 PM CDT Interpretation Candis-Pathology Resident Report Freeman Kirkland M.D. [phone] 10/22 electronically I verify that I have examined all relevant slides/ma terials 1:50 PM CDT signed by for the specimen(s) and rendered or confirmed the diagnosis. 10/22/2018 1:50 PM CDT Block Summary A Right index finger lesion 10/23/19 19 A1 Right index finger lesion 1:50 PM CDT B Right thumb lesion B1 Right thumb lesion C Right middle finger lesion C1 Right middle finger lesion Interpretation FINAL DIAGNOSIS 10/22/2018 A. ??Soft tissue, right index finger lesion, biopsy: 1:50 PM CDT Rheumatoid nodule. ??Negative for polarizable crystals. B. ??Soft tissue, right thumb lesion, biopsy: ??Rheumatoid nodule. ??Negative for polarizable crystals. C. ??Skin, right middle finger lesion, biopsy: ??Rheumatoid nodule. ??Negative for polarizable crystals. Specimen (Source) Anatomical Collection Method Collection Time Re ceived Time Location / / Volume Laterality Tissue (Thumb, 10/21/2018 8:59 AM Right) CDT Tissue (Finger, 10/21/2018 9:01 AM Right) CDT Tissue (Finger, 10/21/2018 8:47 AM Right) CDT Narrative This result has an attachment that is no t available. Guillermina Jon LAB SURG PATH ORDERABLES Performing Organization Address City/State/ZIP Code Phon e Number [facility] - [address] [place] [id number] [address] [facility] documented in this encounter Visit Diagnoses Diagnosis Arthritis Rheumatoid (HCC) - Primary Arthritis Rheumatoid (HCC) Macedonian Language Deficit - Primary General Medical Examination Adult Hypothyroidism Acquired Arthritis Rheumatoid (HCC) High Risk Medication History Of Falling Encounter For COVID-19 Vaccine Immunizat ion Need Vaccine Immunization Influenza Encounter For Other Screening For Malign ant Neoplasm Of Breast documented in this encounter Admitting Diagnoses Diagnosis Arthritis Rheumatoid (HCC) documented in this encounter Administered Medications documented in this encounter Active and Recently Administered Medications Times are shown in CDT. Continuous Medication Order 10/19/2018 10/20/2018 10/21/2018 lactated ringers 0930 (Due) 20 mL/hr, intravenous, at 20 mL/hr, Cont inuous, Starting Sat10/21/18 at 0930, PACU & Post-Op documented in this encounter Care Teams Display Coordinator Relationship Specialty Start Date End Date Cynthia Rockwell, SOHAN, C.N.P. PCP - General 08/16/16 [address] [address] documented as of this encounter
--- OUTSIDE RECORDS SUMMARY | 2022-01-21 23:24 | XMS_ITS | Encounter Summary ---
:1955 Author Organization [facility] Address [address] [place] [address] Care Team Providers Name Role Phone Cynthia Rockwell APRN, C.N.P. Primary Care Provider [phone] Encounter Details Date Type Department Care Team Description 09/23/2018 Orders Only Pharmacy Prior Auth Meme Amor [phone] Social History Tobacco Use Types Packs/Day Years [...] or relatives? How often do you attend spiritism or 1 to 4 times per year 09/01 religion services? Do you belong to any clubs or No 09/18/2018 organizations such as spiritism groups, unions, fraternal or athletic groups, or [...] Rockwell A PRN, C.N.P. [address] [facility], [place] [phone] (Wo rk) documented as of this encounter Visit Diagnoses Not on filedocumented in this encounter Care Teams Electroneurodiagnostic Technologist Relationship Specialty Start Date End Date Cynthia Rockwell APRN C.N.P. PCP - General 08/16/16 [address] [facility] [place] [address] documented as of this encounter
--- OUTSIDE RECORDS SUMMARY | 2022-01-21 23:24 | XMS_ITS | Encounter Summary ---
:1955 Author Organization [facility] Address [address] [place] [address] Care Team Providers Name Role Phone Cynthia Rockwell APRN, C.N.P. Primary Care Provider Reason for Referral Outpatient (Routine) - Closed Specialty Diagnoses / Procedures Referred By Contact Refer red To Contact Orthopedic Surgery Diagnoses Arthritis Rheumatoid (HCC) Guillermina Mullins, M.B.B.S. [address] [address] Referral ID Status Reason Start Date Expiration Date Visits Requ ested Visits Authorized [id number] Closed 09/26/2018 09/26/2019 1 1 Reason for Visit Reason Comments Consult Consult Outpatient (Routine) - Closed Specialty Diagnoses / Procedures Referred By Contact Refer red To Contact Orthopedic Surgery Diagnoses Arthritis Rheumatoid (HCC) Petra Martines, [facility] SOHAN, C.N.P. [address] [place] [phone] Referral ID Status Reason Start Date Expiration Date Visits Requ ested Visits Authorized [id number] Closed 07/15/2018 07/15/2019 1 1 Encounter Details Date Type Department Care Team Description 09/26/2018 Comprehensive Visit Department of Guillermina Mullins Arthri tis Rheumatoid Orthopedic Surgery M.B.B.SS[place] ([facility]) in [address] [place] [address] [place], [place] [phone] (Work) [phone] Social History Tobacco Use Types Packs/Day Years [...] or relatives? How often do you attend jew or 1 to 4 times per year 09/01 jainism services? Do you belong to any clubs or No 09/18/2018 organizations such as jew groups, unions, fraternal or athletic groups, or [...] documented as of this encounter Progress Notes Chloé Mcclure R.N. - 09/26/2018 3:30 PM CDT The patient has agreed to move forward with surgery and is listed for right thumb and index finger lesion excision on October 21, [address] Mullins. Informed consent was signed by the patient. Preoperative instructions were reviewed with patient and her son using the Checklist for Surgical Patients (M [id number]). The patient will call the evening before surgery for arrival time at the hospital and will follow the fasting instructions provided. Patient was instructed on presurgical cleansing using Hibiclens. A copy of Surgical Site infection: Reducing Your Risk ([id number]) was provided as well as Hibiclens packets. All their questions were answered at this time. This entire conversation was done via the help of a [facility] heat treatment technician. documented in this encounter Consult Notes Guillermina Mullins M.B.B.S. - 09/26/2018 3:30 PM CDT SUBJECTIVE CHIEF COMPLAINT / REASON FOR VISIT Althea Arias is a 63 y.o. female who presents for evaluation of Consult of the Right Hand and Consult of the Left Hand and is under the care of Cynthia Rockwell APRN, C.N.P.. HISTORY OF PRESENT ILLNESS The patient is a 63-year-old female who was seen in the presence of her son who speaks Turkish, and we used the [employer] heat treatment technician. She has a long history of rheumatoid arthritis being treated with disease modifying agents. This was a focused evaluation for a primary complaint of nodules in the thumb and index fingers. Her current problem list includes: #1 Arthritis Rheumatoid (HCC) #2 Primary Osteoarthritis Knee Bilateral #3 Dyspepsia #4 Hypothyroidism Acquired #5 Osteopenia #6 High Risk Medication #7 Nodule Rheumatoid (HCC) #8 Fibromyalgia #9 Functional Incontinence Urinary Her surgical history is notable for: Past Surgical History: Procedure Laterality Date ??? NO PAST SURGERIES Tobacco history is Social History Tobacco Use Smoking Status Never Smoker Smokeless Tobacco Never Used REVIEW OF SYSTEMS Constitutional: Positive for loss of appetite. Skin: Positive for skin rash. Eyes: Positive for visual problems. Respiratory: Positive for dyspnea. Cardiovascular: Positive for chest pain, pressure or tightness and swelling in the legs or feet. Gastrointestinal: Positive for abdominal (belly) pain or cramping and heartburn. Musculoskeletal: Positive for arthralgias, pain or stiffness in the joints, joint swelling and muscle pain/stiffness. Neurological: Positive for headaches. The following systems were negative: Hematologic OBJECTIVE Vital Signs vitals were not taken for this visit. PHYSICAL EXAM Examination of bilateral hands shows them to be densely stained with Michelle tattooing. All digits quite stiff but she can almost make a fist. There is some minor rheumatoid deformities but the fingers are quite functional. There are likely some rheumatoid nodules in the pulps of the thumb and index fingers of both hands that measure greater than a cm. Patient says these are painful. She also endorses generalized hand pain all the time. Symptoms are nonspecific and they and quite generalized. However she is quite clear that the nodules bother her significantly. DIAGNOSTICS Hemoglobin A1c, B Date Value Ref Range Status 09/22/2015 5.2 <=5.6 A1C Final Sedimentation Rate, B Date Value Ref Range Status 06/19/2018 34 (H) 0 - 29 mm/1 h Final C-Reactive Protein (CRP), S Date Value Ref Range Status 06/19/2018 8.6 (H) <=8.0 mg/L Final IMAGING Hand radiographs reviewed degenerative changes of all small joints of the hand but no major deformity. ASSESSMENT / PLAN #1 Arthritis Rheumatoid (HCC) I discussed the patient and her son that I do not have a solution for her generalized hand aches andthere are no surgical interventions that I would propose that could improve this. Additionally I do not think that her symptoms warrant referral for steroid injections as is no specific nidus of pain. She would like to have the rheumatoid nodules removed as they are uncomfortable for her. Given that there are in the pulp of the index and thumb I can see this could be an issue for her and I think is reasonable to consider removing these in the operating room. I have requested an MRI scan to define the extent of these further and will list her for surgery thereafter. I discussed the surgery with themincluding risks benefits alternatives and we would likely do this under a block with general anesthetic. Answers for HPI/ROS submitted by the patient on 09/26/2018 Fatigue: Yes Sinus congestion: Yes Rapid or fluttering heart beats: Yes Difficulty swallowing: Yes Change in mole or skin spot: Yes Nipple discharge: Yes Blackouts: Yes Loss of consciousness: Yes Loud snoring: Yes Excessive daytime sleepiness/tiredness: Yes Enlarged lymph nodes: Yes Frequent urination: Yes documented in this encounter Plan of Treatment Upcoming Encounters Date Type Specialty Care Team Description 02/01/2022 Comprehensive Visit Family Medicine Cynthia Rockwell A PRN, C.N.P. [address] [phone] (Wo rk) Scheduled Referrals Name Type Priority Associated Order Schedule Diagnoses Orthopedic Surgery Outpatient Referral Routine Arthritis Ex pected: Post Op (clinic) Rheumatoid (HCC) 019 (Approximate), Expires: 09/26/2021 documented as of this encounter Visit Diagnoses Diagnosis Arthritis Rheumatoid (HCC) Turkish Language Deficit - Primary General Medical Examination Adult Hypothyroidism Acquired Arthritis Rheumatoid (HCC) High Risk Medication History Of Falling Encounter For COVID-19 Vaccine Immunizat ion Need Vaccine Immunization Influenza Encounter For Other Screening For Malign ant Neoplasm Of Breast documented in this encounter Care Teams Director Of Hotel Operations Relationship Specialty Start Date End Date Cynthia Rockwell APRN, C.N.P. PCP - General 08/16/[address] [phone] documented as of this encounter
--- OUTSIDE RECORDS SUMMARY | 2022-01-21 23:24 | XMS_ITS | Encounter Summary ---
:1955 Author Organization [facility] Address [address] [place] [address] Care Team Providers Name Role Phone Cynthia Rockwell APRN, C.N.P. Primary Care Provider [phone] Reason for Visit Auth/Cert Specialty Diagnoses / Procedures Referred By Contact Refer red To Contact Diagnoses Arthritis Rheumatoid (HCC) Arthritis Rheumatoid (HCC) [M06.9] Procedures MD EXCISN BN PROX/MID PHAL PRTL THUMB AND INDEX FINGER LESION EXCISION Referral ID Status Reason Start Date Expiration Date Visits Requ ested Visits Authorized [id number] 1 1 Encounter Details Date Type Department Care Team Description 10/21/2018 Anesthesia Event RST ROMB MAIN OR Braulio Villela M.D. [address] [place] [phone] [address] [facility] [[email or web address]] Leobardo Lugo M.D. [address] [place] [phone] [place] [address] Anesthesia Record Procedure Summary Procedure Name Responsible Anesthesia Start Anesthesia Stop Time Anesthesiologist Time THUMB, INDEX FINGER Braulio Villela M.D. 10/21/18 0745 0945 LESION EXCISION. (Right) Events Date Time Event Comment 10/21/2018 0744 In Room 0745 0745 An Start Machine/Equipmen t Checked Infection Precautions Foll owed Procedure/Site Verified NPO Sta tus Verified Supine Standard ASA Mon itors Applied 0802 Anesthesia Time Out 0807 Block Start 0811 Turnover to Proceduralist 0811 Block End 0839 Proc Start 0915 Proc Fin 0923 Turnover to ANE Staff 0923 an stop data 0929 Out of Room 0945 An End I completed my h andoff to the receiving staff during [facility] we 1. Identified the patient 2. Ident ified the responsible provider 3. Revi ewed the pertinent medical history 4. Discu ssed the surgical course 5. Reviewed intra-o p anesthesia management and issues during an esthesia 6. Set expectations for post-procedure period 7. Allowed opportun ity for questions and acknowledgement of understanding. Name Total midazolam 1 mg/mL injection 1 mg fentaNYL PF injection 50 mcg/mL 25 mcg propofol 10 mg/mL infusion 207.27 mg EPINEPHrine 0.1 mg/mL Regional 15 mcg mepivacaine PF 1.5% injection 30 mL propofol 10 mg/mL injection 20 mg ceFAZolin 2 g ondansetron 4 mg/2 mL injection 4 mg Lactated Ringers Free Drip 450 mL Agents No agents on file. Blood No blood administrations on file. Lines, Drains, and Airways Type Details Placement Removal Peripheral IV Placement Date: 10/18/18 1042 by 10/21/18956 b y 10/18/18; Placement Penelope Willard R.N. Juskewi tch, Katie M, Time: 104; Catheter R.N. Size: 22 G; Location: Hand; Site Prep: Alcohol; Technique: Anatomical landmarks; Inserted by: RB; Insertion Attempts: 1; Removal Date: 10/21/18; Removal Time: 956 Peripheral IV Placement Date: 10/21/18 0739 by 10/21/18956 b y 10/21/18; Placement Cody Law Katie M, Time: 07; Catheter Zahra Rubi, R.NShelton Size: 20 G; B.Ch., B.A.O. Orientation: Left; Location: Hand; Removal Date: 10/21/18; Removal Time: 956 (RETIRED) Incision 10/21/18; 08; Hand; 10/21/18 08 by [id number] by Right; 11/22/20 Anjali Main, Zkdd-Zczzet-T ackground (Removed by background [employer] , Gregul ing Automated completion utility); Batch Job 1418 (Removed by background completion utility) documented in this encounter Social History Tobacco Use Types Packs/Day Years [...] or relatives? How often do you attend sabianist or 1 to 4 times per year 09/01 amish services? Do you belong to any clubs or No 09/18/2018 organizations such as sabianist groups, unions, fraternal or athletic groups, or [...] on file documented as of this encounter OR Notes Anesthesia Postprocedure Evaluation - Elicia Law M.B., B.Ch., B.A.O. - 10/21/2018 9:45 AM CDT Patient: Althea Arias Procedure Summary Date: 10/21/18 Room / Location: [place] [id number] / [facility] in [place], [place] Anesthesia Start: 744 Anesthesia Stop: 944 Procedure: THUMB, INDEX FINGER LESION EXCISION. (Right ) Diagnosis: Arthritis Rheumatoid (HCC) (Arthritis Rheumatoid (HCC) [M06.9].) Provider: Guillermina Mullins M.B.BSheltonS. Responsible Provider: Braulio Villela M.D. Anesthesia Type: regional ASA Status: 2 Anesthesia Type: regional + mac Last vitals Vitals Value Taken Time BP 129/102 10/21/2018 9:35 AM Temp 36.6 ??C 10/21/2018 9:34 AM Pulse 74 10/21/2018 9:40 AM Resp 19 10/21/2018 9:40 AM SpO2 97 % 10/21/2018 9:40 AM Vitals shown include unvalidated device data. Please reference Vitals flowsheet for most recent vital signs. Anesthesia Post Evaluation Patient Disposition: dismissal Cardiovascular status: hemodynamics (HR & BP) acceptable Respiratory status: patent airway with spontaneous effort Temperature: normothermic Oxygen requirements: room air Level of consciousness: awake Pain score: pain adequately controlled and/or at baseline Post Op nausea/vomiting: none Hydration status: euvolemic Anesthesia Procedure Notes - Elicia Law M.B., Tameka, B.A.O. - 10/21/2018 8:31 AM CDTAssociated Order(s): Regional Block Regional Block Date/Time: 10/21/2018 8:31 AM Performed by: Elicia Law M.B., Tameka, B.A.O. Authorized by: Braulio Villela M.D. Care team members present 1. Carmelita Call M.D. 2. Roel Jones D.O. Location: OR PROCEDURE DETAILS: Block type: primary anesthetic Upper extremity: supraclavicular Positioning: supine Laterality: right Block technique: ultrasound guided Ultrasound image: image acquired and saved Supraclavicular blockade were identified. Local anesthetic was injected under direct visualization and good circumferential spread was observed. No pain on injection or needle advancement. No complications noted patient tolerated procedure well. Injection technique: single injection Needle type: echogenic Gauge: 20G Length: 10 Test dose: yes- negative test dose Incremental injection of local anesthetic with aspiration every:5cc Pain with needle advancement or injection of local anesthetic: no PRE-PROCEDURE DETAILS: Appropriate hand hygiene, gown, cap, mask, protective eyewear, sterile gloves, skin preparation, sterile drape, and strict aseptic technique were utilized as applicable for the procedure.: yes Skin prep: chlorhexidine SEDATION / ANESTHESIA Anesthesia method: local infiltration Local infiltrate type: see MAR for dose POST-PROCEDURE DETAILS: Procedure completed successfully: successful procedure Other complications: none ATTESTATION STATEMENT A resident or fellow participated in the procedure, and the oracle manufacturing consultant was present for the entire procedure. Anesthesia Preprocedure Evaluation - Kevin Ramos APRN, CRNA - 10/21/2018 7:38 AM CDT Preprocedure Anesthesia & H&P Assessment Procedure Summary Date/Time: 10/21/18 0745 Procedure: THUMB, INDEX FINGER LESION EXCISION. (Right ) Diagnosis: Arthritis Rheumatoid (HCC) [M06.9] Pre-op diagnosis: Arthritis Rheumatoid (HCC) [M06.9]. Location: [place] [address] / [facility] in [place], [place] Provider: Guillermina Mullins M.B.B.S. Pertinent components of the patient's history including current problem list, medical history, surgical history, family history, social history, medications and allergies were reviewed. Present illnessand pre-op diagnosis were confirmed. The planned surgery / procedure was verified with the patient /legal guardian. The patient's general health condition remains unchanged PROBLEM LIST Relevant Problems No relevant active problems OBJECTIVE PHYSICAL EXAMINATION Airway (HEENT) Mallampati: I TM Distance: >3 FB Neck ROM: Full Mouth Opening: >3 cm Upper Lip Bite Test Class: I Cardiovascular Rhythm: Regular Rate: Normal Cardiovascular Assessment: cardiovascular normal Functional Capacity: >4 METS Pulmonary Pulmonary Assessment: Clear General / Constitutional Constitutional Assessment: Normal General State of Health:: healthy appearing and calm Neurological Neurologic Assessment:??alert and alert and oriented x 3 Dental Dental Assessment: lower dentures ASSESSMENT / PLAN ANESTHESIA PLAN ASA: 2 Anesthesia Plan: regional Plan discussed through in-person gun numberer. Patient seen and allergies reviewed, anesthesia plan and risks discussed directly with patient /legal guardian or through an gun numberer.. The use of blood products not discussed Approval to Proceed: approved for anesthesia documented in this encounter Miscellaneous Notes Addendum Note - Kevin Ramos APRN, CRNA - 10/23/2018 12:36 PM CDT Addendum created 10/23/18 1236 by Kevin Ramos APRN, CRNA Sign clinical note documented in this encounter Plan of Treatment Upcoming Encounters Date Type Specialty Care Team Description 02/01/2022 Comprehensive Visit Family Medicine Cynthia Rockwell A PRN, C.N.P. [address] [place] [phone] (Wo rk) documented as of this encounter Procedures Procedure Name Priority Date/Time Associated Comments Diagnosis ANESTHESIA REGIONAL Routine 10/21/2018 8:31 AM Re sults for this BLOCK CDT procedure are i n the results section. documented in this encounter Results Regional Block (10/21/2018 8:31 AM CDT) Narrative Carmelita Call M.D. - 10/21/2018 8:31 AM CDT Elicia Law M.B., Tameka, B.A.O. ? 10/21/2018 ??8:34 AM Regional Block Date/Time: 10/21/2018 8:31 AM Performed by: Elicia Law M. B., Tameka, B.A.O. Authorized by: Braulio Villela M.D. Care team members present 1. Carmelita Call M.D. 2. Roel Jones D.O. Location: OR PROCEDURE DETAILS: Block type: primary anesthetic ?? Upper extremity: supraclavicular Positioning: supine ?? Laterality: right Block technique: ultrasound guided ?? Ultrasound image: image acquired and manfred ed Supraclavicular blockade were identified . Local anesthetic was injected under direct visualization and good circ umferential spread was observed. No pain on injection or needle advanceme nt. No complications noted patient tolerated procedure well. Injection technique: single injection Needle type: echogenic Gauge: 20G Length: 10 Test dose: yes- negative test dose ?? Incremental injection of local anestheti c with aspiration every:5cc Pain with needle advancement or injectio n of local anesthetic: no ?? PRE-PROCEDURE DETAILS: ?? Appropriate hand hygiene, gown, cap, mas k, protective eyewear, sterile gloves, skin preparation, sterile drape, and strict aseptic technique were utilized as applicable for the procedure .: yes ?? Skin prep: chlorhexidine SEDATION / ANESTHESIA Anesthesia method: local infiltration Local infiltrate type: see MAR for dose POST-PROCEDURE DETAILS: Procedure completed successfully: succes sful procedure Other complications: none ATTESTATION STATEMENT A resident or fellow participated in the procedure, and the oracle manufacturing consultant was present for the entire procedure. Braulio Villela M.D. PROCEDURE/MINOR SURGICAL ORD ERABLES documented in this encounter Visit Diagnoses Not on filedocumented in this encounter Administered Medications Inactive Administered Medications - up to 3 most recent administrations Medication Order MAR Action Action Date Dose Rate Site ceFAZolin injection (ANCEF) Given 10/21/2018 8:29 AM CDT 2 g As needed, Starting on Sat10/21/18 at 0829, Anesthesia Intra-op EPINEPHrine injection (ADRENALIN) Given 10/21/2018 8:11 AM CDT 15 mcg As needed, Starting on Sat10/21/18 at 0811, Anesthesia Intra-op fentaNYL injection (SUBLIMAZE) Given 10/21/2018 8:12 AM CDT 25 mcg intravenous, As needed, Starting on Sat10/21/18 at 0812, Anesthesia Intra-op lactated ringers New Bag 10/21/2018 7:45 AM CDT intravenous, Continuous Infusion: Per Instructions PRN, Starting on Sat10/21/18 at 0745, Anesthesia Intra-op mepivacaine (PF) 15 mg/mL (1.5 %) injection Given 10/21/2018 8:1 1 AM CDT 30 mL (CARBOCAINE) As needed, Starting on Sat10/21/18 at 0811, Anesthesia Intra-op midazolam (PF) injection (VERSED) Given 10/21/2018 8:02 AM CDT 1 mg intravenous, As needed, Starting on Sat10/21/18 at 0802, Anesthesia Intra-op ondansetron (PF) injection (ZOFRAN) Given 10/21/2018 8:52 AM CDT 4 mg intravenous, As needed, Starting on Sat10/21/18 at 0852, Anesthesia Intra-op propofol 10 mg/mL infusion Rate/Dose 10/21/2018 9:01 30 mcg/kg/min 1 3.2 mL/hr (DIPRIVAN) Change AM CDT intravenous, Continuous Infusion: Per Instructions PRN, Starting on Sat10/21/18 at 0812, Anesthesia Intra-op Rate/Dose Change 10/21/2018 8:52 AM CDT 40 mcg/kg/min 17.6 mL/hr Rate/Dose Change 10/21/2018 8:46 AM CDT 45 mcg/kg/min 19.8 mL/hr propofol injection (DIPRIVAN) Given 10/21/2018 8:21 AM CDT 20 mg As needed, Starting on Sat10/21/18 at 0821, Anesthesia Intra-op documented in this encounter Care Teams Life Skills Specialist Relationship Specialty Start Date End Date Cynthia Rockwell, SOHAN, C.N.P. PCP - General 08/16/16 [address] [place] [phone] documented as of this encounter
--- OUTSIDE RECORDS SUMMARY | 2022-01-21 23:24 | XMS_ITS | Encounter Summary ---
:1955 Author Organization [facility] Address [address] [place] [address] Care Team Providers Name Role Phone Mioz Cynthia Taylor APRN, C.N.P. Primary Care Provider [phone] Encounter Details Date Type Department Care Team Description 02/13/2018 Orders Only Division [place]ology [place], [place] HISTOLOGY SPECIALIST, C.N.P. [address] [facility] [address] [place], [place] [address] [place], [place] [phone] (Wo rk) Social History Tobacco Use Types [...] Cynthia Rockwell, Kuldip EUBANKS, C.N.P. [address] [place], [place] [phone] (Wo rk) documented as of this encounter Visit Diagnoses Not on filedocumented in this encounter Care Teams Office Agent Relationship Specialty Start Date End Date Cynthia Rockwell APRN, C.N.P. PCP - General 08/16/[address] [place] [address] documented as of this encounter
--- OUTSIDE RECORDS SUMMARY | 2022-01-21 23:24 | XMS_ITS | Encounter Summary ---
:1955 Author Organization [facility] Address [address] [place] [address] Care Team Providers Name Role Phone Cynthia Rockwell APRN, C.N.P. Primary Care Provider [phone] Reason for Visit Reason Comments Other Having pain all over her bod y. Was seen 05/20 and prednisone was increased and tapered. Was also given pain medication which helped but given only 3 days worth and is wanting more. Appointment Request (Routine) - Closed Specialty Diagnoses / Procedures Referred By Contact Refer red To Contact Family Medicine Referral ID Status Reason Start Date Expiration Date Visits Requ ested Visits Authorized [id number] Closed 06/16/2018 06/16/2019 1 1 Encounter Details Date Type Department Care Team Description 06/19/2018 Office Visit Department of Family Cynthia Rockwell Art hritis Rheumatoid (HCC); Medicine, [place] SOHAN C.N.P. Fibromyalgia; Clinic, in [place], [address] Hypothyroidism Acquired; [place], [place] Dyspepsia [address] [address] [place], [place] [phone] [id number] (Work) [phone] Social History Tobacco Use Types Packs/Day Years [...] 09/18/2018 organizations such as episcopal groups, unions, fraEvirx or athletic groups, or school groups? 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 Chronic Pain and Nutrition (Citizen Of [place])documented in this encounter Progress Notes Cynthia Rockwell, SOHAN, C.N.P. - 06/19/2018 1:00 PM CDT SUBJECTIVE CHIEF COMPLAINT: Chief Complaint Patient presents with ??? Other Having pain all over her body. Was seen 05/20 and prednisone was increased and tapered. Was also given pain medication which helped but given only 3 days worth and is wanting more. HISTORY OF PRESENT ILLNESS: Althea is here with her son who is interpreting for recheck rheumatoid arthritis, fibromyalgia, hypothyroidism and dyspepsia. She needs medication refills. She was seen by Dr. Chandra on May 20 with a rheumatoid arthritis flare. He increased prednisone to 60 mg with taper back to 5 mg daily. Sheis due for follow-up with Rheumatology at [facility] in [place] this month for monitoring of biologic. She needs labs prior to appointment. Labs will be drawn today. She is also due for TSH. States she needs refill of omeprazole for dyspepsia. REVIEW OF SYSTEMS: A 10 system review of constitutional, cardiovascular, respiratory, musculoskeletal, endocrine, skin,HEENT, genitourinary, psychiatric and neurologic systems was obtained and is unremarkable except as noted above. The following portions of the patient's history were reviewed and updated as appropriate: allergies,current medications, family history, medical history, social history, surgical history and problem list. ALLERGIES: No Known Allergies MEDICATIONS: Current Outpatient Prescriptions: ??? acetaminophen (TYLENOL) 500 mg tablet, Take 2 tablets (1,000 mg total) by mouth every 8 (eight) hours as needed for moderate pain or score 4-6 of 10., Disp: 100 tablet, Rfl: 11 ??? ammonium lactate (AMLACTIN) 12 % cream, Apply topically daily., Disp: 385 g, Rfl: 1 ??? chlorhexidine (PERIDEX) 0.12 % mouthwash, Swish and spit 2 (two) times a day. 15 mL, Disp: 473 mL, Rfl: 3 ??? diclofenac sodium (VOLTAREN) 1 % gel, Apply 2 g topically 4 (four) times a day as needed (joint pain)., Disp: 1 Tube, Rfl: 11 ??? DULoxetine (CYMBALTA) 60 mg [...] daily., Disp: 90 tablet, Rfl: 3 ??? methotrexate 2.5 mg tablet, Take 8 tablets (20 mg total) by mouth once a week., Disp: 32 tablet,Rfl: 5 ??? omeprazole (PriLOSEC) [address] capsule, Take 1 capsule (20 mg total) by mouth every morning before breakfast., Disp: 30 capsule, Rfl: 11 ??? predniSONE (DELTASONE) 5 mg tablet, Take 1-2 tablets (5-10 mg total) by mouth daily. Take 10 mg a day for 2 weeks then return to 5 mg a day dosing, Disp: 120 tablet, Rfl: 0 OBJECTIVE LABS and DIAGNOSTICS: TSH is pending. Sed rate, CRP, creatinine with EGFR, CBC and AST are pending per Rheumatology orders. VITAL SIGNS: Temperature: [36.7 ??C] 36.7 ??C Resp Rate: [20] 20 Blood Pressure: (118)/(62) 118/62 Pulse Rate: [68] 68 PHYSICAL EXAM: GENERAL: In general, the patient is pleasant and appears stated age. SKIN: Without lesion. EYES: PERRLA. EOMI intact. Fundi sharp discs. Conjunctiva and lids normal. ENT: Tympanic membranes clear bilaterally. Nasal mucosa without erythema or congestion. Mouth without erythema or exudate. LYMPH NODES: Neck: Supple without adenopathy, no thyromegaly. Carotid pulses are equal bilaterally. PERIPHERAL VESSELS: Femoral, dorsal, pedal and posterior tibial pulses are equal. HEART: Regular rate and rhythm without murmur. LUNGS: Clear to auscultation, good inspiratory effort. ABDOMEN: Soft, nontender, no palpable mass, no hepatosplenomegaly. EXTREMITIES: Rheumatoid nodules on fingers. MENTAL: Alert and oriented times three. NEUROLOGIC: Deep tendon reflexes are +2 and symmetrical. ASSESSMENT /PLAN: #1 Arthritis Rheumatoid (HCC) Schedule follow-up with Rheumatology at [facility] in [place] for monitoring of biologic. Continue prednisone 5 mg daily and Voltaren 1% gel as needed. Labs will be drawn today. #2 Fibromyalgia Acetaminophen 325 mg, 2 tabs every 4 hours as needed for discomfort. #3 Hypothyroidism Acquired Checking TSH. Continue levothyroxine 75 mcg daily. I will contact her with laboratory results if anychanges need to be made. #4 Dyspepsia Omeprazole 20 mg, 1 tablet daily before breakfast. Refill provided. HEALTH MAINTENANCE: Up-to-date. documented in this encounter Plan of Treatment Upcoming Encounters Date Type Specialty Care Team Description 02/01/2022 Comprehensive Visit Family Medicine Cynthia Rockwell A PRN, C.N.P. [address] [phone] (Wo rk) documented as of this encounter Procedures Procedure Name Priority Date/Time Associated Diagnosis Comme nts SEDIMENTATION RATE, B Routine 06/19/2018 1:51 Arthritis Rheuma toid Results for this PM CDT (HCC) procedure are i n the results section. CBC WITH DIFFERENTIAL, Routine 06/19/2018 1:50 Arthritis Rheum atoid Results for this B PM CDT (HCC) procedure are i n the results section. C-REACTIVE PROTEIN Routine 06/19/2018 1:50 Arthritis Rheumatoi d Results for this (CRP), S/P PM CDT (HCC) procedure are i n the results section. ASPARTATE Routine 06/19/2018 1:50 Arthritis Rheumatoid Resu lts for this AMINOTRANSFERASE (AST), PM CDT ([facility]) proc edure are in S/P the results section. THYROID-STIMULATING Routine 06/19/2018 1:50 Hypothyroidism Res ults for this HORMONE-SENSITIVE PM CDT Acquired procedure are in (S-TSH) the results section. CREATININE WITH EGFR, Routine 06/19/2018 1:50 Arthritis Rheuma toid Results for this S/P PM CDT (HCC) procedure are i n the results section. documented in this encounter Results (ABNORMAL) Sedimentation Rate (06/19/2018 1:51 PM CDT) [facility] Method Time Signature Sedimentation 34 (H) 0 - 29 06/19/2018 [facility] Rate, B mm/1 h 4:06 PM CDT [facility] LAB Specimen Anatomical Collection Method Collection Time Receive d Time (Source) Location / / Volume Laterality Blood (Blood, 06/19/2018 1:51 PM 06/20/19 19 1:51 Venous) CDT PM CDT Petra Martines APRN C.N.P. LAB BLOOD ADD-ON Performing Organization Address City/State/ZIP Code Phon e Number [facility] [address] [place] [address] LAB S-TSH (Thyroid-Stimulating Hormone - Sensitive) (06/19/2018 1:50 PM CDT) athologist Signature TSH, Sensitive 2.7 0.3 - 4.2 06/19/2018 [facility] mIU/L 4:18 PM CDT [facility] [place] [facility] Comment: Biotin has been identified by the [facility] as a potential interfering substance. ??Higher concentr ations of biotin may be found in multivitamins, hair/nail supple ments, and workout supplements. ??If the result does not ma [facility] clinical observations, repeat testing after patient refrains fr om the use of supplements for at least 12 hours. Specimen Anatomical Collection Method Collection Time Receive d Time (Source) Location / / Volume Laterality Blood (Blood, 06/19/2018 1:50 PM 06/20/19 19 3:38 Venous) CDT PM CDT Cynthia Rockwell APRN, C.N.P. LAB BLOOD ADD-ON Performing Organization Address City/State/ZIP Code Phon e Number [facility] [place] [address] [place] [address] LAB Creatinine with Estimated GFR (06/19/2018 1:50 PM CDT) athologist Signature Creatinine 0.60 0.59 - 06/19/2018 [facility] 1.04 mg/dL 4:07 PM CDT [facility] [place] [facility] eGFR-Non >90 >=60 06/19/2018 [facility] Black/ mL/min/BSA 4:07 PM CDT [facility] [place] [facility] Comment: ----ADDITIONAL INFORMATION---- Estimated GFR calculated using the 2009 CKD_EPI creatinine equation. eGFR-Black/ >90 >=60 mL/min/BSA 2018 4:07 PM [facility] [place] [facility] Comment: ----ADDITIONAL INFORMATION---- Estimated GFR calculated using the 2009 CKD_EPI creatinine equation. Specimen Anatomical Collection Method Collection Time Receive d Time (Source) Location / / Volume Laterality Blood (Blood, 06/19/2018 1:50 PM 06/20/19 19 3:39 Venous) CDT PM CDT Petra Martines APRN, C.N.P. LAB BLOOD ADD-ON Performing Organization Address City/State/ZIP Code Phon e Number [facility] [place] [address] [place] [address] LAB AST (Aspartate Aminotransferase) (06/19/2018 1:50 PM CDT) Patholo gist Method Time Signature Aspartate 12 8 - 43 06/19/2018 [facility] Aminotransferase U/L 4:07 PM CDT [facility] (AST), [facility] [place] LAB Specimen Anatomical Collection Method Collection Time Receive d Time (Source) Location / / Volume Laterality Blood (Blood, 06/19/2018 1:50 PM 06/20/19 19 3:39 Venous) CDT PM CDT Petra Martines APRN, C.N.P. LAB BLOOD ADD-ON Performing Organization Address City/State/ZIP Code Phon e Number [facility] [place] [address] [place] [address] LAB (ABNORMAL) CRP (C-Reactive Protein) (06/19/2018 1:50 PM CDT) athologist [facility] C-Reactive 8.6 (H) <=8.0 mg/L 06/19/2018 [facility] Protein (CRP), 10:02 PM CDT [facility] LAB Specimen Anatomical Collection Method Collection Time Receive d Time (Source) Location / / Volume Laterality Blood (Blood, 06/19/2018 1:50 PM 06/20/19 19 9:44 Venous) CDT PM CDT Petra Martines APRN, C.N.P. LAB BLOOD ADD-ON Performing Organization Address City/State/ZIP Code Phon e Number [facility] [address] [place] [address] [facility] LAB CBC with Differential, Blood (06/19/2018 1:50 PM CDT) athologist [facility] Hemoglobin 12.7 11.6 - 06/19/2018 [facility] 15.0 g/dL 2:58 PM CDT [facility] Hematocrit 39.4 35.5 - 06/19/2018 [facility] 44.9 % 2:58 PM CDT [facility] Erythrocytes 4.37 3.92 - 06/19/2018 [facility] 5.13 2:58 PM CDT [facility] MCV 90.2 78.2 - 06/19/2018 [facility] 97.9 fL 2:58 PM CDT [facility] [place] [facility] RBC Distrib Width 14.4 12.2 - 06/19/2018 [facility] 16.1 % 2:58 PM CDT [facility] Platelet Count 200 157 - 371 06/19/2018 [facility] x10(9)/L 2:58 PM CDT [facility] [place] Leukocytes 8.1 3.4 - 9.6 06/19/2018 [facility] x10(9)/L 2:58 PM CDT [facility] Neutrophils 5.72 1.56 - 06/19/2018 [facility] 6.45 2:58 PM CDT [facility](9[facility] Lymphocytes 1.70 0.95 - 06/19/2018 [facility] 3.07 2:58 PM CDT [facility](9[facility] Monocytes 0.66 0.26 - 06/19/2018 [facility] 0.81 2:58 PM CDT [facility] x10(9)/L [facility]- [place] [facility] Eosinophils 0.05 0.03 - 06/19/2018 [facility] 0.48 2:58 PM CDT [facility] x[facility](9)/L [facility] Basophils 0.01 0.01 - 06/19/2018 [facility] 0.08 2:58 PM CDT [facility] x[facility](9)/[facility] Specimen Anatomical Collection Method Collection Time Receive d Time (Source) Location / / Volume Laterality Blood (Blood, 06/19/2018 1:50 PM 06/20/19 19 1:51 Venous) CDT PM CDT Petra Martines APRN, C.N.P. LAB BLOOD ADD-ON Performing Organization Address City/State/ZIP Code Phon e Number [facility] [address] [facility] [place] [place] [address] LAB documented in this encounter Visit Diagnoses Diagnosis Arthritis Rheumatoid (HCC) Fibromyalgia Hypothyroidism Acquired Dyspepsia Citizen Of [place] Language Deficit - Primary General Medical Examination Adult Hypothyroidism Acquired Arthritis Rheumatoid (HCC) High Risk Medication History Of Falling Encounter For COVID-19 Vaccine Immunizat ion Need Vaccine Immunization Influenza Encounter For Other Screening For Malign ant Neoplasm Of Breast documented in this encounter Care Teams 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 PCP - General 08/16/160 [address] [facility] [place] [address] documented as of this encounter
--- OUTSIDE RECORDS SUMMARY | 2022-01-21 23:24 | XMS_ITS | Encounter Summary ---
:1955 Author Organization [facility] Address [address] [place] [address] Care Team Providers Name Role Phone Cynthia Rockwell APRN C.N.PShel[place] Primary Care Provider [phone] Encounter Details Date Type Department Care Team Description 09/26/2018 Orders Only Department of Mitchellri, Guillermina, Arthritis Rhe umatoid Orthopedic Surgery in [facility] (Primary Dx) [place], [place] [address] [facility] [address] [place] [phone] Social History Tobacco Use Types Packs/Day Years [...] or relatives? How often do you attend holiness or 1 to 4 times per year 09/01 buddhist services? Do you belong to any clubs or No 09/18/2018 organizations such as holiness groups, unions, fraternal or athletic groups, or [...] Cynthia Rockwell A PRN, C.N.P. [address], [place] [phone] (Wo rk) documented as of this encounter Visit Diagnoses Diagnosis Arthritis Rheumatoid (HCC) - Primary Italian Language Deficit - Primary General Medical Examination Adult Hypothyroidism Acquired Arthritis Rheumatoid (HCC) High Risk Medication History Of Falling Encounter For COVID-19 Vaccine Immunizat ion Need Vaccine Immunization Influenza Encounter For Other Screening For Malign ant Neoplasm Of Breast documented in this encounter Care Teams Animal Sticker Relationship Specialty Start Date End Date Cynthia Rockwell APRN, C.N.P. PCP - General 08/16/[address] [phone] documented as of this encounter
--- OUTSIDE RECORDS SUMMARY | 2022-01-21 23:24 | XMS_ITS | Encounter Summary ---
:1955 Author Organization [facility] Address [address] [place] [address] Care Team Providers Name Role Phone Cynthia Rockwell APRN, C.N.P. Primary Care Provider [phone] Reason for Referral Outpatient (Routine) - Closed Specialty Diagnoses / Procedures Referred By Contact Refer red To Contact Rheumatology Petra Martines APRN, [facility] C.N.P. [address] [place] [phone] Referral ID Status Reason Start Date Expiration Date Visits Requ ested Visits Authorized [id number] Closed 07/15/2018 07/15/2019 1 1 Scheduling Instructions tiffany only Outpatient (Routine) - Closed Specialty Diagnoses / Procedures Referred By Contact Refer red To Contact Orthopedic Surgery Diagnoses Arthritis Rheumatoid (HCC) Petra Martines [facility] [place], C.N.P. [address] [place] [phone] Referral ID Status Reason Start Date Expiration Date Visits Requ ested Visits Authorized [id number] Closed 07/15/2018 07/15/2019 1 1 Scheduling Instructions Ortho internal referral panel order, oswald ging before Consult visit Reason for Visit Outpatient (Routine) - Closed Specialty Diagnoses / Procedures Referred By Contact Refer red To Contact Rheumatology Petra Martines APRN, [facility] C.N.P. [address] [place] [address] Referral ID Status Reason Start Date Expiration Date Visits Requ ested Visits Authorized [id number] Closed 02/20/2018 02/20/2019 1 1 Encounter Details Date Type Department Care Team Description 07/15/2018 Office Visit Division of Petra Martines Arthritis Rheumatoid Rheumatology in [place] ([facility]) (Primary Dx) [place], [place] 200 [facility] 200 [place] [phone] Social History Tobacco Use Types Packs/Day Years [...] 1 to 4 times per year 09/01 scientology services? Do you belong to any clubs [...] Sign Reading Time Taken Comments Blood Pressure 112/69 07/15/2018 3:03 PM CDT Pulse 72 07/15/2018 3:03 PM CDT Temperature 36.9 ??C (98.4 ??F) 07/15/2018 3:03 PM CDT Respiratory Rate - - Oxygen Saturation - - Inhaled Oxygen Concentration - - Weight 72.3 kg (159 lb 6.3 oz) 07/15/2018 3:03 PM CDT Height 158.9 cm (5' 2.56) 07/15/2018 3:03 PM CDT Body Mass Index 28.63 07/15/2018 3:03 PM CDT documented in this encounter Progress Notes Petra Martines APRN, C.N.P. - 07/15/2018 3:00 PM CDT SUBJECTIVE CHIEF COMPLAINT / REASON FOR VISIT Althea Arias is a 63 y.o. female who presents for follow up of rheumatoid arthritis. HISTORY OF PRESENT ILLNESS This is a patient who was previously followed by Dr. Alvarez, Dr. Monzon, and Perry Paz. She has had active rheumatoid arthritis. She has been on prednisone, methotrexate, and more recently was prescribed Arava Hydroxychloroquine was ultimately discontinued due to lapse in eye exams. She has not been on biologics predominantly due to history of tuberculosis. Reportedly, she has been treated for this per her initial consult note in June 2009 though we do not have the paperwork on record. She saw Dr. Castillo in the end of March 2017 for a second opinion on her rheumatoid arthritis. Itwas recommended she obtain TB testing which remained positive. We are not going to introduce biologics at this point time but additional workup will be needed in the future if we proceed with a biologic. Gwen gnosis She continues to describe widespread pain which is worse at night. Tolerating the methotrexate and Arava. . She denies mouth sores She continues to have significant widespread aching and arthralgias General body ache and whole body feels swollen and hands ache. Feels whole body is stiff. Feels the nodules are particularly bothersome on her hands greater than right. ?? Rheumatoid Arthritis Current Symptoms: dry mouth, fatigue and heartburn Current Symptoms: eyes not dry, no fever, no rash, no Raynaud's syndrome, no weight loss, no excessive bruising, no cough, no chest pain, no edema, no nausea, no vomiting, no abdominal pain, no anorexia, no night sweats, no oral ulcers, no dyspnea and no subcutaneous nodules Previous Reports Reviewed:lab reports and office notes The following portions of the patient's history were reviewed and updated as appropriate: allergies,current medications and problem list. REVIEW OF SYSTEMS Pertinent positives and negatives as documented in the above history of present illness. Constitutional: Positive for fatigue. Negative for fever, loss of appetite, night sweats and weight loss. Skin: Negative for skin rash. Respiratory: Positive for dyspnea. Negative for cough. Cardiovascular: Positive for pain in the calf muscles when walking. Negative for chest pain, pressure or tightness. Gastrointestinal: Positive for heartburn. Negative for abdominal (belly) pain or cramping, anorexia,nausea and vomiting. Musculoskeletal: Positive for arthralgias, back pain, pain or stiffness in the joints, joint swelling and muscle pain/stiffness. Neurological: Positive for headaches, blackouts and weakness in arms or legs. The following systems were negative: Skin, Eyes, , Hematologic, Psych OBJECTIVE PHYSICAL EXAM Physical Exam General: Alert, oriented, appropriate affect, no apparent distress Skin: No rheumatic rashes. Nodules present in bilateral hands as well as back of ankles Eyes: Clear conjunctivae and lids. Ear, Nose and Throat: Moist oral mucosa without mucositis. Lymph: No cervical or supraclavicular adenopathy. Heart: Regular rate. No murmurs or rubs. Lungs: Clear to auscultation bilaterally. Neuro: Appropriate gait for age. Proximal and distal strength in the upper and lower extremities is grossly intact. Joints: Widespread tenderness above below the waist in all 4 quadrants. Range of motion of the extremities including shoulder and hips are within functional limits bilaterally. Lab: Stable monitoring labs with normal inflammatory markers. Disease Activity Tenderness RUE: glenohumeral and elbow LUE: glenohumeral and elbow RLE: knee and ankle LLE: knee and ankle Swelling Right hand: 2nd MCP and 3rd MCP Tender joint count (0-28): 6 Swollen joint count (0-28): 2 Provider Global Assessment, 0-100: 5 ASSESSMENT / PLAN #1 Arthritis Rheumatoid (HCC) Now will continue with her current regimen of methotrexate and Arava. She only has very slight synovitis in the right hand otherwise joints are quiescent. She does have a significant prominent component of widespread musculoskeletal pain consistent with fibromyalgia recommended follow-up with her primary care provider to assist with her sleeping issues prep she needs adjustment of her duloxetine pre I have referred her to [facility] for evaluation of her nodules she would like consideration ofhaving these removed. I will have Perry Paz see her back in follow-up in 4 months time. I did provide them again with the contact number for Yoko Inman in 0 [phone] who does see Rheumatology patients in [place] to see if they can be seen narrowing follow-up. Patient's questions were answered they verbalized understanding and agreed with plan. [facility] was utilized to assist with this interview. documented in this encounter Plan of Treatment Upcoming Encounters Date Type Specialty Care Team Description 02/01/2022 Comprehensive Visit Family Medicine Cynthia Rockwell A PRN, C.N.P. [address] [place] [phone] (Wo rk) Scheduled Referrals Name Type Priority Associated Order Schedule Diagnoses Orthopedic Surgery - Outpatient Referral Routine Arthritis Expected: Wrist / hand non Rheumatoid (HCC) 019 surgical consult (Approximat e), (clinic) Expires: 07/15/2021 Rheumatology office Outpatient Referral Routine E xpected: visit (clinic) 11/04/2018 (Approximate), Expires: 07/15/2021 documented as of this encounter Results (ABNORMAL) CRP (C-Reactive Protein) (11/04/2018 12:34 PM CDT) athologist Signature C-Reactive 10.4 (H) <=8.0 mg/L 11/04/2018 Protein (CRP), 9:24 PM CDT S Specimen Anatomical Collection Method Collection Time Receive d Time (Source) Location / / Volume Laterality Blood (Blood, 11/04/2018 12:34 11/04/2018 9:11 Venous) PM CDT PM CDT Petra Martines APRN, C.N.P. LAB BLOOD ADD-ON Performing Organization Address City/State/ZIP Code Phon e Number [facility]- [address] [place] [address] [facility] LAB CBC with Differential, Blood (11/04/2018 12:34 PM CDT) athologist Signature Hemoglobin 12.3 11.6 - 11/04/2018 [...] Organization Address City/State/ZIP Code Phon e Number [address] [address] LAB Creatinine with Estimated GFR (11/04/2018 12:33 PM CDT) P athologist Signature Creatinine 0.64 0.59 - 11/04/2018 1.04 mg/dL 4:31 PM CDT eGFR-Non >90 >=60 11/04/2018 Black/ mL/min/BSA 4:31 PM CDT Citizen Of [place] Comment: ----ADDITIONAL INFORMATION---- Estimated GFR calculated using [...] C.N.P. LAB BLOOD ADD-ON Performing Organization Address City/[facility]/ZIP Code Phon e Number [facility] [address] [place] [address] LAB AST (Aspartate Aminotransferase) (11/04/2018 12:33 PM CDT) Patholo gist Method Time Signature Aspartate 19 8 - 43 11/04/2018 Aminotransferase U/L 4:31 PM CDT (AST), S Specimen Anatomical Collection Method Collection Time Receive d Time (Source) Location / / Volume Laterality Blood (Blood, 11/04/2018 12:33 11/04/2018 3:26 Venous) PM CDT PM CDT Petra Martines APRN, C.N.P. LAB BLOOD ADD-ON Performing Organization Address [facility]/ZIP Code Phon e Number [facility] [address] [place] [address] LAB Sedimentation Rate (11/04/2018 12:33 PM CDT) Analysis Performed At Patho logist Time Signature Sedimentation 29 0 - 29 11/04/2018 Rate, B mm/1 h 2:39 PM CDT Specimen Anatomical Collection Method Collection Time Receive d Time (Source) Location / / Volume Laterality Blood (Blood, 11/04/2018 12:33 11/04/2018 Venous) PM CDT 12:34 PM CDT Petra Martines APRN, C.N.P. LAB BLOOD ADD-ON Performing Organization Address [facility]/ZIP [facility] [place] [address] [place] [address] LAB DX Hand Bilateral 3+ Views (09/26/2018 2:36 PM CDT) Anatomical Region Laterality Modality Upper Extremity, Hand, Musculoskeletal RST LOS, Bilateral Computed Radiography Musculoskeletal ARZ LOS, Muskuloskeletal FLA LOS Specimen (Source) Anatomical Collection Method Collection Time Re ceived Time Location / / Volume Laterality 09/26/2018 2:50 PM CDT Impressions 09/26/2018 2:53 PM CDT Little change since 03/28/2017. Persistent soft tissue swelling about multiple MCP and IP joints, most n otably the right 1st IP, right 2nd MCP and PIP, left 1st IP and left 3rd PIP mata ints. Tiny probable erosions at the right 2nd-4th and 3rd MCP and left 2nd M CP joints. Bilateral ulnar positive variance. Developmental variant at the l unotriquetral articulations. Demineralization. Narrative 09/26/2018 2:53 PM CDT EXAM: ??DX HAND BILATERAL 3+ VIEWS Procedure Note Jana Ash M.D. - 019 EXAM: DX HAND BILATERAL 3+ VIEWS IMPRESSION: Little change since 03/28/2017. Persisten t soft tissue swelling about multiple MCP and IP joints, most n otably the right 1st IP, right 2nd MCP and PIP, left 1st IP and left 3rd PIP mata ints. Tiny probable erosions at the right 2nd-4th and 3rd MCP and left 2nd M CP joints. Bilateral ulnar positive variance. Developmental variant at the l unotriquetral articulations. Demineralization. Petra Martines APRN, C.N.P. IMG DIAGNOSTIC IMAGING P ROCEDURES documented in this encounter Visit Diagnoses Diagnosis Arthritis Rheumatoid (HCC) - Primary Arthritis Rheumatoid (HCC) Bolivian Language Deficit - Primary General Medical Examination Adult Hypothyroidism Acquired Arthritis Rheumatoid (HCC) High Risk Medication History Of Falling Encounter For COVID-19 Vaccine Immunizat ion Need Vaccine Immunization Influenza Encounter For Other Screening For Malign ant Neoplasm Of Breast documented in this encounter Care Teams Pin Drafting Machine Operator Relationship Specialty Start Date End Date Cynthia Rockwell APRN, C.N.P. PCP - General 08/16/16 [address] [place] [phone] documented as of this encounter
--- OUTSIDE RECORDS SUMMARY | 2022-01-21 23:24 | XMS_ITS | Encounter Summary ---
:1955 Author Organization [facility] Address [address] [place] [address] Care Team Providers Name Role Phone Cynthia Rockwell APRN, C.N.P. Primary Care Provider [phone] Reason for Visit Auth/Cert Specialty Diagnoses / Procedures Referred By Contact Refer red To Contact Diagnoses Arthritis Rheumatoid (HCC) Arthritis Rheumatoid (HCC) [M06.9] Procedures FL EXCISN BN PROX/MID PHAL PRTL THUMB AND INDEX FINGER LESION EXCISION Referral ID Status Reason Start Date Expiration Date Visits Requ ested Visits Authorized [id number] 1 1 Encounter Details Date Type Department Care Team Description 10/21/2018 Surgery RST [facility] MAIN OR Susanna Abdiazizroyal, THUMB, INDEX FINGER [address] [facility] M.B.[place] [address] [address] [facility] [phone] [place] [phone] Social History Tobacco Use Types Packs/Day Years [...] together with friends Three times a wee jignesh 09/26/2018 or relatives? How often do you [...] Sign Reading Time Taken Comments Blood Pressure 130/60 10/21/2018 6:58 AM CDT Pulse 60 10/21/2018 6:58 AM CDT Temperature 36.7 ??C (98.1 ??F) 10/21/2018 6:58 AM CDT Respiratory Rate 18 10/21/2018 6:58 AM CDT Oxygen Saturation 100% 10/21/2018 6:58 AM CDT Inhaled Oxygen Concentration - - [...] Arthritis Rheumatoid once a week. ([facility]) omeprazole (PriLOSEC) 20 Take 1 capsule (20 [...] OR Notes Op Note - Vicente Bledsoe M.B.B.S. - 10/21/2018 8:39 AM CDT FULL OP NOTE Procedure(s) (LRB): THUMB, INDEX FINGER LESION EXCISION. (Right) Surgeon(s) and Role: * Guillermina Mullins M.B.B.S. - Primary * Vicente Bledsoe M.B.B.S. - Air Hammer Operator Anesthesia Type Regional Pre-operative Diagnosis Arthritis Rheumatoid ([facility]) [M06.9]. Post-operative Diagnosis Same as pre-operative diagnosis Findings As expected Complications None Description of Procedure The patient was seen evaluated the preoperative area. Next, the patient was consented and site marked. We had the a discussion regarding the lesion at the middle finger, the consent was obtained verbally from the patient via main clinic certified translator/interpreter, and she expressed her desire to proceed [...] PATHOLOGY, [facility] Guillermina Mullins M.B.B.S. 10/21/2018 0901 C : right index finger lesion Tissue Finger, Right SURGICAL PATHOLOGY, [facility] Guillermina Mullins M.B.B.S. 10/21/2018 0847 Drains None Estimated Blood Loss 5 mL Implants None Danay Harris Brief Op Note - Vicente Bledsoe M.B.B.S. - 10/21/2018 8:39 AM CDT BRIEF OP NOTE Procedure(s) (LRB): THUMB, INDEX FINGER LESION EXCISION. (Right) Surgeon(s) and Role: * Guillermina Mullins M.B.B.S. - Primary * Vicente Bledsoe M.B.B.S. - Air Hammer Operator Anesthesia Type Regional Pre-operative Diagnosis * Arthritis [...] Loss 5 mL Implants None Danay Harris documented in this encounter Plan of Treatment Upcoming Encounters Date Type Specialty Care Team Description 02/01/2022 Comprehensive Visit Family Medicine Cynthia Rockwell, Kuldip EUBANKS, C.N.P. [address] [place] [phone] (Wo rk) Scheduled Referrals Name Type Priority Associated Diagnoses Order S chedule Plastic Surgery Outpatient Referral Routine Arthritis Rheumato id Expected: Post Op (clinic) ([facility]) 10/21/2018 (Approximate), Expires: 10/21/2021 documented as of this encounter Procedures Procedure Name Priority Date/Time Associated Diagnosis Comme nts SURGICAL PATHOLOGY, Routine 10/21/2018 8:47 AM Arthritis Rheum atoid Results for this [facility] CDT ([facility]) procedure are i n the results section. EXCISION SOFT 10/21/2018 7:29 AM Arthritis Rheumatoid TISSUE LESION HAND CDT ([facility]) documented in this encounter Results Surgical Pathology, [facility] (10/21/2018 8:47 AM CDT) Component Value Ref Test Analysis Performed At [facility] Yu Rong Range Method Time Signature Gross Description A. ??Received fresh labeled right index finge r lesion is a 10/22/2018 0.7 x 0.7 x 0.6 cm well-circumscribed, diaz-white nodule. 1:50 PM CDT The cut surface is diaz-white, solid, and rubbery. ??All submitted for permanent sections. ??Grossed by DJS/YELENA. B. ??Received fresh labeled right thumb lesion is a 1.7 x 1.4 x 1 cm aggregate of diaz-white nodular tissue. ??The cut surface is diaz-white, solid, and rubbery. ??All submitted for permanent sections. ??Grossed by EXC/SD. C. ??Received fresh labeled right middle finger lesion is a 0.9 x 0.5 cm unoriented ellipse of skin with a 0.6 x 0.5 x 0.4 cm fibrous subcutaneous nodule. ??All submitted for permanent sections. ??Grossed by EXC. Participated in Nina Hameed 10/22/2018 the Sandrita, 1:50 PM CDT Interpretation MJesus Manuel-Pathology Resident Report Freeman Kirkland M.D. [phone] 10/22 electronically I verify that I have [...] Organization Address City/State/ZIP Code Phon e Number [facility] - [address] documented in this encounter Visit Diagnoses Diagnosis Arthritis Rheumatoid (HCC) - Primary Arthritis Rheumatoid (HCC) Arthritis Rheumatoid (HCC) Lao Language Deficit - Primary [...] Post-Op documented in this encounter Care Teams Cable Technician Relationship Specialty Start Date End Date Cynthia Rockwell APRN, C.N.P. PCP - General 08/16/16 [address] [place] [phone] documented as of this encounter
--- OUTSIDE RECORDS SUMMARY | 2022-01-21 23:24 | XMS_ITS | Encounter Summary ---
:1955 Author Organization [facility] Address [address] [place] [address] Care Team Providers Name Role Phone Cynthia Rockwell APRN C.N.P. Primary Care Provider [phone] Encounter Details Date Type Department Care Team Description 10/21/2018 Ancillary Procedure Department of Plastic and Reconstructive Surgery Social History Tobacco Use Types Packs/Day Years [...] or relatives? How often do you attend amish or 1 to 4 times per year 09/01 adventist services? Do you belong to any clubs or No 09/18/2018 organizations such as amish groups, unions, fraternal or athletic groups, or [...] Comprehensive Visit Family Medicine Cynthia Rockwell, Kuldip MENDOZAN, C.N.P. [address] [place], [place] [phone] (Wo rk) documented as of this encounter Procedures Procedure Name Priority Date/Time Associated Diagnosis Comme nts PLASTIC AND RECON Routine 10/21/2018 12:00 PM Res ults for this SURGERY IMAGE EXAM CDT procedure are in the results section. documented in this encounter Results Hand-Plastic And Recon Surgery Image Exam (10/21/2018 12:00 PM CDT) Specimen (Source) Anatomical Location Collection Method / Collectio n Time Received Time / Laterality Volume Narrative [facility] - 10/21/2018 4:50 PM CDT This order has been created and auto-finalized to support the import of images acquired without order. The clini malaika documentation to support these images can be found on the encounter hang t produced images. Provider Not In System IMG NON RAD IMAGING PROCEDUR ES Performing Organization Address City/State/ZIP Code Phon e Number [facility] NA documented in this encounter Visit Diagnoses Not on filedocumented in this encounter Care Teams Concrete Hopper Operator Relationship Specialty Start Date End Date Cynthia Rockwell, SOHAN, C.N.P. PCP - General 08/16/16 [address] [place] [phone] documented as of this encounter
--- OUTSIDE RECORDS SUMMARY | 2022-01-21 23:24 | XMS_ITS | Encounter Summary ---
:1955 Author Organization [facility] Address [address] [place] [address] Care Team Providers Name Role Phone Cynthia Rockwell APRN C.N.[place] Primary Care Provider [phone] Encounter Details Date Type Department Care Team Description 09/26/2018 Clinical Communication Department of Pavel Richard Orthopedic Surgery in [place], [place] [address] [facility] [address] [place] [phone] Social History Tobacco Use Types Packs/Day Years [...] 1 to 4 times per year 09/01 muslim services? Do you belong to any clubs [...] Cynthia Rockwell A PRN, C.N.P. [address], [place] [phone] (Wo rk) documented as of this encounter Visit Diagnoses Not on filedocumented in this encounter Care Teams Spice Grinder Relationship Specialty Start Date End Date Cynthia Rockwell APRN, C.N.P. PCP - General 08/16/16 [address] [place] [phone] documented as of this encounter
--- OUTSIDE RECORDS SUMMARY | 2022-01-21 23:24 | XMS_ITS | Encounter Summary ---
:1955 Author Organization [facility] Address [address] [place] [address] Care Team Providers Name Role Phone Cynthia Rockwell APRN, C.N.P. Primary Care Provider Reason for Visit Reason Onset Date Comments MRI 10/10/2018 Encounter Details Date Type Department Care Team Description 10/10/2018 Clinical Communication Department of Guillermina Mullins [place] [address] [facility] [address] [place] [phone] Social History Tobacco Use Types Packs/Day Years [...] this encounter Miscellaneous Notes Telephone Encounter - Oneida Diaz - 10/10/2018 1:13 PM CDT Left a message on her Son's cell as well. Thank you Telephone Encounter - Chloé Mcclure R.N. - 10/10/2018 12:51 PM CDT I was with Dr. Mullins during pt's visit. He was very clear with the pt that the MRI needed to be completed here prior to surgery. She did not speak much Israeli, but her son was there at the appt and understood the plan. He does speak good Israeli, otherwise you could use an court bailiff. I would try calling patient's son. Telephone Encounter - Oneida Diaz - 10/10/2018 12:45 PM CDT ARTEMIO. Tried calling patient. Number on file doesn't work. Sent an online message to her portal with my number to call and reschedule MRI. Thank you Telephone Encounter - Penelope Norris APRN, C.N.P. - 10/10/2018 10:04 AM CDT Yes please. thanks Telephone Encounter - Oneida Diaz - 10/10/2018 7:22 AM CDT Patient no showed her MRI that was on 10/06. Would you like me to reach out to her and see if she can reschedule? Thank you documented in this encounter Plan of Treatment Upcoming Encounters Date Type Specialty Care Team Description 02/01/2022 Comprehensive Visit Family Medicine Cynthia Rockwell, Kuldip EUBANKS, C.N.P. [address] [place], [place] [phone] (Wo rk) documented as of this encounter Visit Diagnoses Not on filedocumented in this encounter Care Teams Wind Power Project Manager Relationship Specialty Start Date End Date Cynthia Rockwell APRN, C.N.P. PCP - General 08/16/16 [address] [phone] documented as of this encounter
--- OUTSIDE RECORDS SUMMARY | 2022-01-21 23:24 | XMS_ITS | Encounter Summary ---
:[address] [facility] Address [address] [place] [address] Care Team Providers Name Role Phone Cynthia Rockwell APRN, C.N.P. Primary Care Provider [phone] Reason for Referral Outpatient (Routine) - Closed Specialty Diagnoses / Procedures Referred By Contact Refer red To Contact Rheumat[facility] [address] [place] [phone] Referral ID Status Reason Start Date Expiration Date Visits Requ ested Visits Authorized [id number] Closed 02/20/2018 02/20/2019 1 1 [facility] Reason for Visit Appointment Request (Routine) - Closed Specialty Diagnoses / Procedures Referred By Contact Refer red To Contact Rheumatology Perry Arana APR N, C.N.P. [address] [place] [phone] Referral ID Status Reason Start Date Expiration Date Visits Requ ested Visits Authorized [id number] Closed 02/12/2018 02/12/2019 1 Encounter Details Date Type Department Care Team Description 02/20/2018 Office Visit Division of Petra Martines, Arthritis Rheumatoid Rheumatology in [place], C.N.P. ([facility]) (Primary Dx) [place], [place] [address] [place] [address] [place] [phone] Social History Tobacco Use Types Packs/Day Years [...] Sign Reading Time Taken Comments Blood Pressure 146/70 02/20/2018 2:44 PM PLATFORM MATERIAL HANDLER MANAGER Pulse 69 02/20/2018 2:44 PM PLATFORM MATERIAL HANDLER MANAGER Temperature 37.2 ??C (99 ??F) 02/20/2018 2:44 PM PLATFORM MATERIAL HANDLER MANAGER Respiratory Rate - - Oxygen Saturation - - Inhaled Oxygen Concentration - - Weight 71.3 kg (157 lb 3 oz) 02/20/2018 2:44 PM PLATFORM MATERIAL HANDLER MANAGER Height 155.4 cm (5' 1.18) 02/20/2018 2:44 PM PLATFORM MATERIAL HANDLER MANAGER Body Mass Index 29.52 02/20/2018 2:44 PM PLATFORM MATERIAL HANDLER MANAGER documented in this encounter Progress Notes Petra Martines, SOHAN, C.N.P. - 02/20/2018 3:00 PM CST SUBJECTIVE CHIEF COMPLAINT / REASON FOR VISIT Althea Arias is a 62 y.o. female who presents for follow up [...] a second opinion on her rheumatoid arthritis. She reports today that she is having increase in symptoms. She continues with the methotrexate and leflunomide at their listed doses per her report. At her last visit it was felt her clinical symptoms were more consistent with fibromyalgia type symptoms and her Cymbalta was increased. She is not entirely certain if this was beneficial. . It was recommended she obtain TB testing which remained positive. We are not going to introduce biologics at this point time but additional workup will be needed in the future if we proceed with a biologic. Diagnosis She continues to describe widespread pain which seems to be most bothersome in the hands, wrists, and shoulders. Tolerating the methotrexate and Arava. She does report some dizziness from the duloxetine. She denies mouth sores has occasional diarrhea but it is not frequent. She continues to have significant widespread aching and arthralgias Rheumatoid Arthritis RF +: Yes CCP +: Yes Current Symptoms: diarrhea, dry mouth, fatigue, oral ulcers and heartburn Current Symptoms: eyes not dry, no fever, no rash, no Raynaud's syndrome, no weight loss, no excessive bruising, no cough, no chest pain, no edema, no nausea, no vomiting, no abdominal pain, no chills,no night sweats and no eye inflammation Previous Reports Reviewed:lab reports and office notes The following portions of the patient's history were reviewed and updated as appropriate: allergies,current medications and problem list. REVIEW OF SYSTEMS Pertinent positives and negatives as documented in the above history of present illness. Constitutional: Positive for fatigue. Negative for chills, fever, loss of appetite, night sweats, weight gain of more than 10 pounds, weight loss of more than 10 pounds and weight loss. Skin: Negative for skin rash. Respiratory: Positive for dyspnea. Negative for cough. Cardiovascular: Negative for chest pain, pressure or tightness and pain in the calf muscles when walking. Gastrointestinal: Positive for diarrhea and heartburn. Negative for abdominal (belly) pain or cramping, blood in stool, constipation, nausea, vomiting and difficulty swallowing. Musculoskeletal: Positive for arthralgias, back pain, pain or stiffness in the joints, joint swelling and muscle pain/stiffness (widespread ). Neurological: Positive for headaches, blackouts (2 months ago) and weakness in arms or legs. Negative for loss of consciousness. The following systems were negative: Skin, Eyes, , Hematologic, Psych OBJECTIVE PHYSICAL EXAM Physical Exam General: Alert, oriented, appropriate affect, no apparent distress Skin: No rheumatic rashes. Eyes: Clear conjunctivae and lids. Ear, Nose and Throat: Moist oral mucosa without mucositis. Lymph: No cervical or supraclavicular adenopathy. Heart: Regular rate. No murmurs or rubs. Lungs: Clear to auscultation bilaterally. Joints: No synovitis of the upper and lower extremities including hands, wrists, elbows, knees, ankles or feet bilaterally. Nodules present on her fingers, widespread tenderness in all musculoskeletal groups, and some chronic deformity in her hands Lab: Stable monitoring labs with normal inflammatory markers. ASSESSMENT / PLAN #1 Arthritis Rheumatoid (HCC) #2 Rheumatoid nodules #3 Myofascial pain #4 History of latent TB We did discuss that in the future if we proceeded with a biologic she would need to have an infectious disease consult related to her latent TB. She is considering following up in [place] I did give her information to consider make an appointment there is would be closer for her from a travel standpoint. To see if it is helpful for arthralgias will increase prednisone to 10 mg a day for 2 weeks and that her go back to the 5 mg a day dose. Continue both the methotrexate and Arava she tolerates this well as stable lab monitoring. Will see her back in follow-up in 4-6 months time if she does not follow up in [place]. Refills that were needed were given. Patient's questions were answered they verbalized understandingand agreed with plan. Of note further requests son assisted with interpretation of language. Answers for HPI/ROS submitted by the patient on 02/20/2018 Fatigue: Yes Fever: Yes No eye issues: Yes No ENT issues: Yes Pain in the calf muscles when walking: Yes Shortness of breath: Yes Heartburn: Yes Muscle pain/stiffness: Yes Pain or stiffness in the joints: Yes Joint swelling: Yes Back pain/stiffness: Yes No skin issues: Yes Headache: Yes Blackouts: Yes Weakness in arms and/or legs: Yes No mental health issues: Yes No blood/lymph issues: Yes No urinary/reproductive issues: Yes documented in this encounter Plan of Treatment Upcoming Encounters Date Type Specialty Care Team Description 02/01/2022 Comprehensive Visit Family Medicine Cynthia Rockwell A PRN, C.N.P. [address] [place], [place] [phone] (Wo rk) Scheduled Referrals Name Type Priority Associated Order Schedule Diagnoses Rheumatology office Outpatient Referral Routine E xpected: visit (clinic) 06/21/2018 (Approximate), Expires: 02/20/2021 documented as of this encounter Results (ABNORMAL) Sedimentation Rate (06/19/2018 1:51 PM CDT) [facility] [employer] Method Time Signature Sedimentation 34 (H) 0 - 29 06/19/2018 [facility] Rate, B mm/1 h 4:06 PM CDT [facility] Specimen Anatomical Collection Method Collection Time Receive d Time (Source) Location / / Volume Laterality Blood (Blood, 06/19/2018 1:51 PM 06/20/19 19 1:51 Venous) CDT PM CDT Petra Martines APRN, C.N.P. LAB BLOOD ADD-ON Performing Organization Address City/[facility] Phon e Number [facility] [address] [place] [address] LAB AST (Aspartate Aminotransferase) (06/19/2018 1:50 PM CDT) [facility] [employer] Method Time Signature Aspartate 12 8 - 43 06/19/2018 [facility] Aminotransferase U/L 4:07 PM CDT [employer] (AST)[employer] [facility] Specimen Anatomical Collection Method Collection Time Receive d Time (Source) Location / / Volume Laterality Blood (Blood, 06/19/2018 1:50 PM 06/20/19 19 3:39 Venous) CDT PM CDT Petra Martines APRN, C.N.P. LAB BLOOD ADD-ON Performing Organization Address City/[facility]/ZIP Code Phon e Number [facility] [address] [place] [address] LAB Creatinine with Estimated GFR (06/19/2018 1:50 PM CDT) athologist Signature Creatinine 0.60 0.59 - 06/19/2018 [facility] 1.04 mg/dL 4:[address] [facility] LAB eGFR-Non >90 >=60 06/19/2018 [facility] Black/ mL/min/BSA 4:07 PM T [facility] [employer] [facility] Comment: ----ADDITIONAL INFORMATION---- Estimated GFR calculated using the 2009 CKD_EPI creatinine equation. eGFR-Black/ >90 >=60 mL/min/BSA 2018 4:07 PM [facility] LAB Comment: ----ADDITIONAL INFORMATION---- Estimated GFR calculated using the 2009 CKD_EPI creatinine equation. Specimen Anatomical Collection Method Collection Time Receive d Time (Source) Location / / Volume Laterality Blood (Blood, 06/19/2018 1:50 PM 06/20/19 19 3:39 Venous) CDT PM CDT Petra Martines APRN, C.N.P. LAB BLOOD ADD-ON Performing Organization Address City/State/ZIP Code Phon e Number [facility] [address] [place] [address] LAB (ABNORMAL) CRP (C-Reactive Protein) (06/19/2018 1:50 PM CDT) athologist Signature C-Reactive 8.6 (H) <=8.0 mg/L 06/19/2018 [facility] Protein (CRP), 10:02 PM CDT [facility] Specimen Anatomical Collection Method Collection Time Receive d Time (Source) Location / / Volume Laterality Blood (Blood, 06/19/2018 1:50 PM 06/20/19 19 9:44 Venous) CDT PM CDT Petra Martines APRN, C.N.P. LAB BLOOD ADD-ON Performing Organization Address City/State/ZIP Code Phon e Number [facility] [address] [place] [address] [place] LAB CBC with Differential, Blood (06/19/2018 1:50 PM CDT) P athologist Signature Hemoglobin 12.7 11.6 - 06/19/2018 [facility] 15.0 g/dL 2:58 PM CDT [email or web address] Hematocrit 39.4 35.5 - 06/19/2018 [facility] 44.9 % 2:58 PM CDT [facility] Erythrocytes 4.37 3.92 - 06/19/2018 [facility] 5.13 2:58 PM CDT [facility] x10(12)/L [facility] MCV 90.2 78.2 - 06/19/2018 [facility] 97.9 fL 2:58 PM CDT [facility] [place] [facility] RBC Distrib Width 14.4 12.2 - 06/19/2018 [facility] 16.1 % 2:58 PM CDT [facility] [place] [facility] Platelet Count 200 157 - 371 06/19/2018 [facility] x10(9)/L 2:58 PM CDT [facility] [place] [facility] Leukocytes 8.1 3.4 - 9.6 06/19/2018 [facility] x10(9)/L 2:58 PM CDT [email or web address] Neutrophils 5.72 1.56 - 06/19/2018 [facility] 6.45 2:58 PM CDT [facility] x10(9)/L [facility]- [email or web address] Lymphocytes 1.70 0.95 - 06/19/2018 [facility] 3.07 2:58 PM CDT [facility] x10(9)/L [facility]- [email or web address] Monocytes 0.66 0.26 - 06/19/2018 [facility] 0.81 2:58 PM CDT [facility] x10(9)/L [facility]- [email or web address] Eosinophils 0.05 0.03 - 06/19/2018 [facility] 0.48 2:58 PM CDT [facility] x10(9)/L [facility]- [email or web address] Basophils 0.01 0.01 - 06/19/2018 [facility] 0.08 2:58 PM CDT [facility] x10(9)/L [facility]- [email or web address] Specimen Anatomical Collection Method Collection Time Receive d Time (Source) Location / / Volume Laterality Blood (Blood, 06/19/2018 1:50 PM 06/20/19 19 1:51 Venous) CDT PM CDT Petra M Conrad PARRY, C.N.P. LAB BLOOD ADD-ON Performing Organization Address City/State/ZIP Code Phon e Number [facility]- [address] [address] LAB documented in this encounter Visit Diagnoses Diagnosis Arthritis Rheumatoid (HCC) - Primary Indian Language Deficit - Primary General Medical Examination Adult Hypothyroidism Acquired Arthritis Rheumatoid (HCC) High Risk Medication History Of Falling Encounter For COVID-19 Vaccine Immunizat ion Need Vaccine Immunization Influenza Encounter For Other Screening For Malign ant Neoplasm Of Breast documented in this encounter Care Teams Chemist Helper Relationship Specialty Start Date End Date Cynthia Rockwell APRN, C.N.P. PCP - General 08/16/16 [address] [place] [phone] documented as of this encounter
--- OUTSIDE RECORDS SUMMARY | 2022-01-21 23:24 | XMS_ITS | Encounter Summary ---
:1955 Author Organization [facility] Address [address] [place] [address] Care Team Providers Name Role Phone Cynthia Rockwell APRN, C.N.P. Primary Care Provider [phone] Reason for Visit MRI/CAT/PET Scan (Routine) - Closed Specialty Diagnoses / Procedures Referred By Contact Refer red To Contact Radiology Diagnoses Arthritis Rheumatoid ([facility]) Guillermina Mullins M.B.B.S. [facility] Procedures MR Hand Right without and with IV Contrast MR Hand Right without IV Contrast NV MRI UPR EXT NONJOINT WO CNTRST HC MRI UPR EXT NONJOINT WO CNTRST NV MRI UPR EXT NONJOINT WO CNTRST [address] [place] [address] Referral ID Status Reason Start Date Expiration Date Visits Requ ested Visits Authorized [id number] Closed 09/26/2018 09/26/2019 1 1 Encounter Details Date Type Department Care Team Description 10/18/2018 Hospital Encounter Department of Guillermina Mullins Arthrit is Rheumatoid Radiology, Sudheer Martins.B.S. ([facility]) [facility], in [address] [place] [address] [place] [phone] [place], [place] [phone] (Work) [phone] Social History Tobacco Use Types Packs/Day Years [...] 1 to 4 times per year 09/01 quaker services? Do you belong to any clubs or No 09/18/2018 organizations such as christian groups, unions, fra99tests or athletic groups, or school groups? How [...] Sign Reading Time Taken Comments Blood Pressure - - Pulse - - Temperature - - Respiratory Rate - - Oxygen Saturation - - Inhaled Oxygen Concentration - - Weight 63.5 kg (140 lb) 10/18/2018 10:41 AM CDT Height 160 cm (5' 3) 10/18/2018 10:41 AM CDT Body Mass Index 24.8 10/18/2018 10:41 AM CDT documented in this encounter Medications [...] Arthritis Rheumatoid once a week. ([facility]) omeprazole (PriLOSEC) 20 Take 1 capsule [...] tabletIndications: total) by mouth Arthritis Rheumatoid daily. ([facility]) documented as of this encounter Nursing Notes Penelope Willard R.N. - 10/18/2018 10:47 AM CDT Son assisted with assessment. documented in this encounter Plan of Treatment Upcoming Encounters Date Type Specialty Care Team Description 02/01/2022 Comprehensive Visit Family Medicine Cynthia Rockwell A PRN, C.N.P. [address] [place], [place] [phone] (Wo rk) documented as of this encounter Procedures Procedure Name Priority Date/Time Associated Comments Diagnosis MR HAND RIGHT RAD - Routine 10/18/2018 12:35 Arthritis Results f or this WITHOUT AND WITH (most inpatients PM CDT Rheumatoid (HCC) pro cedure are in IV CONTRAST and all the results outpatients) section. documented in this encounter Results MR Hand Right without and with IV Contrast (10/18/2018 12:35 PM CDT) Anatomical Region Laterality Modality Upper Extremity, Hand, Musculoskeletal RST LOS, Right Magnetic Resonance Musculoskeletal ARZ LOS, Muskuloskeletal FLA LOS Specimen (Source) Anatomical Collection Method Collection Time Re ceived Time Location / / Volume Laterality 10/18/2018 1:06 PM CDT Impressions 10/18/2018 1:27 PM CDT 1. Enhancing erosive changes and subluxation at the 2nd MCP joint with patchy enhancing synovitis about multiple MCP j oints compatible with the patient's known diagnosis of rheumatoid arthritis. 2. Numerous enhancing soft tissue nodule s as described in the body of the report, including 2 over the volar aspec t of the thumb, 1 over radial aspect of the index finger at the level of the PIP joint and a 4th nodule over the volar aspect of the long finger DIP joint whic h, given the multiplicity and the known diagnosis of rheumatoid arthritis, most likely represent rheumatoid nodules. Narrative 10/18/2018 1:27 PM CDT EXAM: ??MR HAND RIGHT WITHOUT AND WITH IV CONTRAST COMPARISON: ??Radiograph 09/26/2018 FINDINGS: ??MRI of the right hand withou t and with IV gadolinium contrast performed at [address]. There are multiple soft tissue nodules i nvolving the right hand which have similar signal characteristics. The nodu les are intermediate to dark on both T1 and T2 weighted images and enhancement a vidly and somewhat heterogeneously. There are 2 nodules involving the volar aspect of the thumb, the largest of which is a bilobed nodule overlying the volar and medial aspect of the FPL tendon at the level of the IP joint, dariusz suring 6 mm AP by 12 mm TR by 18 mm SI (series 5, image 21). A smaller nodule i s located at the volar tip of the thumb and measures 5 mm AP by 7 mm TR by 8 mm SI (series 5, image 24). 8 mm x 6 mm x 11 mm nodule overlying the radial/lateral aspect of the PIP joint of the index finger (series 5 and 10, im age 20 and series 3, image 18). A 4th nodule is located over the volar a nd slightly lateral aspect of the long finger at the level of the DIP joint and the terminal tendon (series 3, image 8 and series 5, image 19). This also has a bilobed appearance and measures 4 mm AP by 5 mm TR by 13 mm SI. Additional area of nodular thickening over the extensor surface of the long finger at the level of the PIP joint. This may be related to the medical and skin folds but correlate clinically (series 3, image 15 and series 7 and 11, image 29). Additional s omewhat nodular areas of enhancement associated with the 3rd MCP joint dorsal ly (series 9, image 28 and underlying the extensor tendon of the 4th finger at the level of the metacarpal neck (series 10, image 10 and series 8, image 30 and involving the 5th MCP joint (series 9, image 29) are more likely rel ated to synovitis and tenosynovitis then discrete soft tissue masses. There are p eripherally enhancing cystic erosions within the 3rd metacarpal head. Enhancin g synovitis of the MCP joint. Ulnar subluxation at the 2nd MCP joint. These findings are compatible with the patient's known long-standing diagnosis of rheumatoid arthritis. Although the soft tissue masses individu ally have somewhat nonspecific imaging characteristics with diagnostic consider ations that would include tenosynovial giant cell tumors, given the multiplicit y and the known history of rheumatoid arthritis, these most likely represent r heumatoid nodules. Procedure Note Marcella Spain M.D. - 10/18/2018For matting of this note might be different from the original. EXAM: MR HAND RIGHT WITHOUT AND WITH IV CONTRAST COMPARISON: Radiograph 09/26/2018 FINDINGS: MRI of the right hand without and with IV gadolinium contrast performed at [address]. There are multiple soft tissue nodules i nvolving the right hand which have similar signal characteristics. The nodu les are intermediate to dark on both T1 and T2 weighted images and enhancement a vidly and somewhat heterogeneously. There are 2 nodules involving the volar aspect of the thumb, the largest of which is a bilobed nodule overlying the volar and medial aspect of the FPL tendon at the level of the IP joint, dariusz suring 6 mm AP by 12 mm TR by 18 mm SI (series 5, image 21). A smaller nodule i s located at the volar tip of the thumb and measures 5 mm AP by 7 mm TR by 8 mm SI (series 5, image 24). 8 mm x 6 mm x 11 mm nodule overlying the radial/lateral aspect of the PIP joint of the index finger (series 5 and 10, im age 20 and series 3, image 18). A 4th nodule is located over the volar a nd slightly lateral aspect of the long finger at the level of the DIP joint and the terminal tendon (series 3, image 8 and series 5, image 19). This also has a bilobed appearance and measures 4 mm AP by 5 mm TR by 13 mm SI. Additional area of nodular thickening over the extensor surface of the long finger at the level of the PIP joint. This may be related to the medical and skin folds but correlate clinically (series 3, image 15 and series 7 and 11, image 29). Additional s omewhat nodular areas of enhancement associated with the 3rd MCP joint dorsal ly (series 9, image 28 and underlying the extensor tendon of the 4th finger at the level of the metacarpal neck (series 10, image 10 and series 8, image 30 and involving the 5th MCP joint (series 9, image 29) are more likely rel ated to synovitis and tenosynovitis then discrete soft tissue masses. There are p eripherally enhancing cystic erosions within the 3rd metacarpal head. Enhancin g synovitis of the MCP joint. Ulnar subluxation at the 2nd MCP joint. These findings are compatible with the patient's known long-standing diagnosis of rheumatoid arthritis. Although the soft tissue masses individu ally have somewhat nonspecific imaging characteristics with diagnostic consider ations that would include tenosynovial giant cell tumors, given the multiplicit y and the known history of rheumatoid arthritis, these most likely represent r heumatoid nodules. IMPRESSION: 1. Enhancing erosive changes and subluxa tion at the 2nd MCP joint with patchy enhancing synovitis about multiple MCP j oints compatible with the patient's known diagnosis of rheumatoid arthritis. 2. Numerous enhancing soft tissue nodule s as described in the body of the report, including 2 over the volar aspec t of the thumb, 1 over radial aspect of the index finger at the level of the PIP joint and a 4th nodule over the volar aspect of the long finger DIP joint whic h, given the multiplicity and the known diagnosis of rheumatoid arthritis, most likely represent rheumatoid nodules. Guillermina Jon IMPer MRI PROCEDURES documented in this encounter Visit Diagnoses Diagnosis Arthritis Rheumatoid (HCC) Salvadorean Language Deficit - Primary General Medical Examination [...] MAR Action Action Date Dose Rate Site gadobutrol injection 0.01-30 mL Given 10/18/2018 12:34 PM CDT 7 mL (GADAVIST) 0.01-30 mL, intravenous, Once in imaging, contrast, Starting on 10/18/18 at 1038, For 1 dose, Imaging Protocol Orders, Dose per Radiant Medication Guidelines documented in this encounter Care Teams Alterations Workroom Clerk Relationship Specialty Start Date End Date Cynthia Rockwell, HELPDESK SPECIALIST, C.N.P. PCP - General 08/16/16 [address], [place] [address] documented as of this encounter
--- OUTSIDE RECORDS SUMMARY | 2022-01-21 23:24 | XMS_ITS | Encounter Summary ---
:1955 Author Organization [facility] Address [address] [place] [address] Care Team Providers Name Role Phone Cynthia Rockwell APRN C.N.PShel[place] Primary Care Provider [phone] Reason for Referral Medication Prior Authorization (Routine) - Closed Specialty Diagnoses / Procedures Referred By Contact Refer red To Contact Dewayne Chandra M.B.B.S., M.D. [address] [place] [address] Referral ID Status Reason Start Date Expiration Date Visits Requ ested Visits Authorized [id number] Closed Reason for Visit Reason Comments Other feels numbness over whole laci dy, off and on for 6 years, has arthritis, back pain from arthritis Encounter Details Date Type Department Care Team Description 05/20/2018 Office Visit Department of [facility] Dewayne Chandra Rheumatoid Medicine, Danay Hollings[place], ([facility]) ( Primary Dx) Clinic, in [place] [address] [facility] [address] [place] [phone] Social History Tobacco Use Types Packs/Day [...] Sign Reading Time Taken Comments Blood Pressure 98/62 05/20/2018 2:26 PM CDT Pulse 64 05/20/2018 2:26 PM CDT Temperature 36.9 ??C (98.4 ??F) 05/20/2018 2:26 PM CDT Respiratory Rate 16 05/20/2018 2:26 PM CDT Oxygen Saturation - - Inhaled Oxygen Concentration - - Weight 71.7 kg (158 lb 2.9 oz) 05/20/2018 2:26 PM CDT Height - - Body Mass Index 29.71 02/20/2018 2:44 PM PRODUCTION SUPERVISOR documented in this encounter H&P Notes Dewayne Chandra M.B.B.S., [place] - 05/20/2018 2:30 PM CDT SUBJECTIVE CHIEF COMPLAINT / REASON FOR VISIT Althea Arias is a 63 y.o. female who presents for evaluation of Other (feels numbness over whole body, off and on for 6 years, has arthritis, back pain from arthritis). HISTORY OF PRESENT ILLNESS 63-year-old female with a history of rheumatoid arthritis on methotrexate, Arava and 5 mg of prednisone daily. Patient also has a history of fibromyalgia for which she is on Cymbalta. She is here today with worsening back pain, joint swelling and numbness. Symptoms have been ongoing for 1 week now. She has been taking Tylenol for pain with some relief. She reports difficulty sleeping at night due to her discomfort. Patient denies headache, dizziness, fever or chills. She has had no change in bowel habits. She has had no focal weakness, urinary incontinence or saddle anesthesia. The following portions of the patient's history were reviewed and updated as appropriate: allergies,current medications, family history, medical history, social history, surgical history and problem list. REVIEW OF SYSTEMS Pertinent items are noted in HPI. OBJECTIVE BP 98/62 (BP Location: Left arm, Patient Position: Sitting, Cuff Size: Large) Pulse 64 Temp 36.9??C Resp 16 Wt 71.7 kg BMI 29.71 kg/m?? PHYSICAL EXAM General Appearance: healthy, alert, no distress, cooperative. Skin: skin color, texture, turgor normal, no suspicious rashes or lesions. Head: normocephalic, no masses, lesions, tenderness or abnormalities. Eyes: Anicteric sclera. Pupils are equally round and reactive to light. Extraocular movements are intact. . Lungs: clear to auscultation. Musculoskeletal: No dose noted on her fingers. Patient has tenderness over her legs, knees and back. ASSESSMENT / PLAN #1 Arthritis Rheumatoid (HCC) Patient seems to be having a rheumatoid flare. Will increase her prednisone to 60 mg daily for 3 days and do a taper. After completing a 9 day taper, she would continue with 10 mg of prednisone a day. I have also given her 3 days of oxycodone to be taken at night. Patient has been encouraged to follow up with her mechanical tech. documented in this encounter Plan of Treatment Upcoming Encounters Date Type Specialty Care Team Description 02/01/2022 Comprehensive Visit Family Medicine Cynthia Rockwell A PRN, C.N.P. [address] [place] [phone] (Wo rk) documented as of this encounter Visit Diagnoses Diagnosis Arthritis Rheumatoid (HCC) - Primary New Zealander Language Deficit - Primary General Medical Examination Adult Hypothyroidism Acquired Arthritis Rheumatoid (HCC) High Risk Medication History Of Falling Encounter For COVID-19 Vaccine Immunizat ion Need Vaccine Immunization Influenza Encounter For Other Screening For Malign ant Neoplasm Of Breast documented in this encounter Care Teams Director Of Placement Relationship Specialty Start Date End Date Cynthia Rockwell, SOHAN, C.N.P. PCP - General 08/16/16 [address] [place] [phone] documented as of this encounter
--- OUTSIDE RECORDS SUMMARY | 2022-01-21 23:24 | XMS_ITS | Encounter Summary ---
:1955 Author Organization [facility] Address [address] [place] [address] Care Team Providers Name Role Phone Cynthia Rockwell APRN, C.N.P. Primary Care Provider [phone] Reason for Visit Reason Comments Med Refill Encounter Details Date Type Department Care Team Description 08/11/2018 Refill Department of Family Medicine, Dewayne Chandra I. Med Refill [facility], [place], [place] [address] [facility] [address] [place] [address] [place] [address] [phone] Social History Tobacco Use Types Packs/Day Years [...] or relatives? How often do you attend voodoo or 1 to 4 times per year 09/01 alevism services? Do you belong to any clubs or No 09/18/2018 organizations such as voodoo groups, unions, fraternal or athletic groups, or [...] Notes Telephone Encounter - Klaudia Smalls - 08/12/2018 10:02 AM CDT Nurse review: Unable to reconcile the medication pended by Surescripts; Needs reconciling for current directions. Primary Provider: Cynthia Rockwell APRN, C.N.P. Name of medication: predniSONE (DELTASONE) 20 mg tablet documented in this encounter Plan of Treatment Upcoming Encounters Date Type Specialty Care Team Description 02/01/2022 Comprehensive Visit Family Medicine Cynthia Rockwell A PRN, C.N.P. [address], [place] [phone] (Wo rk) documented as of this encounter Visit Diagnoses Diagnosis Arthritis Rheumatoid (HCC) Kazakh Language Deficit - Primary General Medical Examination Adult Hypothyroidism Acquired Arthritis Rheumatoid (HCC) High Risk Medication History Of Falling Encounter For COVID-19 Vaccine Immunizat ion Need Vaccine Immunization Influenza Encounter For Other Screening For Malign ant Neoplasm Of Breast documented in this encounter Care Teams Ruffling Hemmer Automatic Relationship Specialty Start Date End Date Cynthia Rockwell APRN, C.N.P. PCP - General 08/16/16 [address], [place] [address] documented as of this encounter
--- OUTSIDE RECORDS SUMMARY | 2022-01-21 23:24 | XMS_ITS | Encounter Summary ---
:1955 Author Organization [facility] Address [address] [place] [address] Care Team Providers Name Role Phone Cynthia Rockwell APRN, C.N.P. Primary Care Provider [phone] Encounter Details Date Type Department Care Team Description 09/26/2018 Hospital Encounter Department of Petra [facility] Rheumatoid Radiology, Jessie Flowers APRN, C.N.P. ([facility]) Building, in [address] [place] [phone] [place] [address] [place], [place] (Work) [phone] Social History Tobacco Use Types Packs/Day Years [...] Medicine Cynthia Rockwell, Kuldip PRN, C.N.P. [address] [place], [place] [phone] (Wo rk) documented as of this encounter Procedures Procedure Name Priority Date/Time Associated Comments Diagnosis DX HAND BILATERAL RAD - Routine 09/26/2018 2:36 Arthritis Result s for this 3+ VIEWS (most inpatients PM CDT Rheumatoid (HCC) procedu re are in and all the results outpatients) section. documented in this encounter Results DX Hand Bilateral 3+ Views (09/26/2018 2:36 [...] encounter Visit Diagnoses Diagnosis Arthritis Rheumatoid (HCC) Spanish Language Deficit - Primary General Medical Examination Adult Hypothyroidism Acquired Arthritis Rheumatoid (HCC) High Risk Medication History Of Falling Encounter For COVID-19 Vaccine Immunizat ion Need Vaccine Immunization Influenza Encounter For Other Screening For Malign ant Neoplasm Of Breast documented in this encounter Care Teams Solid Waste Collection Worker Relationship Specialty Start Date End Date Cynthia Rockwell, SOHAN, C.N.P. PCP - General 08/16/16 [address], [place] [address] documented as of this encounter
--- OUTSIDE RECORDS SUMMARY | 2022-01-21 23:24 | XMS_ITS | Encounter Summary ---
:1955 Author Organization [facility] Address [address] [place] [address] Care Team Providers Name Role Phone Cynthia Rockwell APRN, C.N.P. Primary Care Provider [phone] Reason for Visit Reason Comments Other Face swelling that started o n Saturday. Hurts all over her body. Appointment Request (Routine) - Closed Specialty Diagnoses / Procedures Referred By Contact Refer red To Contact Family Medicine Referral ID Status Reason Start Date Expiration Date Visits Requ ested Visits Authorized [id number] Closed 09/16/2018 09/16/2019 1 Encounter Details Date Type Department Care Team Description 09/18/2018 Office Visit Department of Family Cynthia Rockwell Eng lish Language Deficit (Primary Dx); Medicine, [place] SOHAN, C.N.[place] Fibromyalgia; Clinic, in [place], [address] Arthritis Rheumatoid (HCC); [place], [place] Hypothyroidism Acquired; [address] [address] Dyspepsia [place], [place] [phone] [address] (Work) [phone] Social History Tobacco Use Types Packs/Day Years [...] Sign Reading Time Taken Comments Blood Pressure 123/60 09/18/2018 1:37 PM CDT Pulse 67 09/18/2018 1:37 PM CDT Temperature 36.9 ??C (98.4 ??F) 09/18/2018 1:37 PM CDT Respiratory Rate 16 09/18/2018 1:37 PM CDT Oxygen Saturation - - Inhaled Oxygen Concentration - - Weight 74.2 kg (163 lb 11.1 oz) 09/18/2018 1:37 PM CDT Height - - Body Mass Index 29.41 07/15/2018 3:03 PM CDT documented in this encounter Patient Instructions AttachmentsThe following attachments cannot be sent through Care Everywhere. Hypothyroidism (Belarusian)documented in this encounter Progress Notes Cynthia Rockwell, SOHAN, C.N.P. - 09/18/2018 1:30 PM CDT SUBJECTIVE CHIEF COMPLAINT: Chief Complaint Patient presents with ??? Other Face swelling that started on Saturday. Hurts all over her body. HISTORY OF PRESENT ILLNESS: Althea is here with her son who was interpreting, she declined [place] diplomatic interpreter/translator. She has rheumatoid arthritis and follows with Rheumatology at [facility] in [place]. Next labs and appointment are due in early November. She would like to do labs locally. She needs refills on all of her medications. She uses Voltaren gel and acetaminophen for fibromyalgia, she has not been taking acetaminophen daily because she was afraid of side effects. Discussed should be used only as needed but that it canbe taken every day. She has hypothyroidism stable on levothyroxine 75 mcg daily. TSH in June 03.. She takes omeprazole 20 mg daily for dyspepsia. REVIEW OF SYSTEMS: A 10 [...] 10., Disp: 100 tablet, Rfl: 11 ??? chlorhexidine (PERIDEX) 0.12 % mouthwash, Swish [...] by mouth daily., Disp: 90 tablet,Rfl: 0 OBJECTIVE VITAL SIGNS: Temperature: [36.9 ??C] 36.9 ??C Resp Rate: [16] 16 Blood Pressure: (123)/(60) 123/60 Pulse Rate: [67] 67 PHYSICAL EXAM: GENERAL: In general, the patient [...] nontender, no palpable mass, no hepatosplenomegaly. EXTREMITIES: Warm, dry, no cyanosis or peripheral edema. MENTAL: Alert and oriented times three. NEUROLOGIC: Deep tendon reflexes are +2 and symmetrical. ASSESSMENT /PLAN: #1 Fibromyalgia Continue Voltaren gel 4 times daily as needed for joint pain and acetaminophen 500 mg, 2 tablets every 8 hours as needed for pain. Refills provided. She also takes Cymbalta 60 mg twice daily. #2 Arthritis Rheumatoid (HCC) Continue to follow with Rheumatology at [facility] in [place]. She will schedule labs to be done locally in early November with follow-up appointment in [place]. Refills provided for methotrexate, prednisone and Arava today. #3 Hypothyroidism Acquired Stable on levothyroxine 75 mcg daily. #4 Dyspepsia Continue omeprazole 20 mg every morning before breakfast. #5 Belarusian Language Deficit [place] diplomatic interpreter/translator declined today. Her son was her diplomatic interpreter/translator. HEALTH MAINTENANCE: Up-to-date. documented in this encounter Plan of Treatment Upcoming Encounters Date Type Specialty Care Team Description 02/01/2022 Comprehensive Visit Family Medicine Cynthia Rockwell A PRN, C.N.P. [address] [place], [place] [phone] (Wo rk) documented as of this encounter Visit Diagnoses Diagnosis Belarusian Language Deficit - Primary Fibromyalgia Arthritis Rheumatoid (HCC) Hypothyroidism Acquired Dyspepsia Belarusian Language Deficit - Primary General Medical Examination Adult Hypothyroidism Acquired Arthritis Rheumatoid (HCC) High Risk Medication History Of Falling Encounter For COVID-19 Vaccine Immunizat ion Need Vaccine Immunization Influenza Encounter For Other Screening For Malign ant Neoplasm Of Breast documented in this encounter Care Teams Integrated Logistics Support Manager Relationship Specialty Start Date End Date Cynthia Rockwell APRN, C.N.P. PCP - General 08/16/16 [address] [place] [phone] documented as of this encounter
--- OUTSIDE RECORDS SUMMARY | 2022-01-21 23:24 | XMS_ITS | Encounter Summary ---
:1955 Author Organization [facility] Address [address] [place] [address] Care Team Providers Name Role Phone Cynthia Rockwell APRN, C.N.P. Primary Care Provider Encounter Details Date Type Department Care Team Description 10/21/2018 Ancillary Procedure Department of Anesthesiology Social History Tobacco Use Types Packs/Day Years [...] Medicine Cynthia Rockwell, Kuldip EUBANKS, C.N.P. [address] [phone] (Wo rk) documented as of this encounter Procedures Procedure Name Priority Date/Time Associated Comments Diagnosis ANESTHESIOLOGY IMAGE Routine 10/21/2018 7:10 AM R esults for this EXAM CDT procedure are i n the results section. documented in this encounter Results Nerve-Anesthesiology Image Exam (10/21/2018 7:10 AM CDT) Specimen (Source) Anatomical Location Collection Method / Collectio n Time Received Time / Laterality Volume Narrative IIMS - 10/22/2018 7:32 AM CDT This order has been created and [...] on filedocumented in this encounter Care Teams Commercial Representative Relationship Specialty Start Date End Date Cynthia Rockwell, SOHAN, C.N.P. PCP - General 08/16/16 [address] [place] [address] documented as of this encounter
--- OUTSIDE RECORDS SUMMARY | 2022-01-21 23:25 | XMS_ITS | Encounter Summary ---
:1955 Author Organization [facility] Address [address] [place] [address] Care Team Providers Name Role Phone Cynthia Rockwell APRN, C.N.P. Primary Care Provider [phone] Encounter Details Date Type Department Care Team Description 01/08/2018 Hospital Encounter Department of Cynthia Rockwell Mammogram Radiology in JSOH[place], C.N.P. Average Risk Patient [place], [place] [address] [facility] [place] [phone] Social History Tobacco Use Types Packs/Day Years [...] Refills Start Date End Date acetaminophen (TYLENOL) Take 2 tablets 100 tablet 2 01/09/20 18 06/19/2018 500 mg tabletIndications: (1,000 mg total) by Fibromyalgia mouth every 8 (eight) hours as needed for moderate pain or score 4-6 of 10. ammonium lactate Apply topically 385 g 1 11/14/2017 (AMLACTIN) 12 % cream daily. calcium carbonate-vitamin Take 1 tablet by 30 tablet 11/0206/19/2018 D3 1,250 mg (500 mg mouth daily with calcium)-200 unit per breakfast. tabletIndications: Arthritis Rheumatoid (HCC) chlorhexidine (PERIDEX) Swish and spit 2 473 mL 3 201709/18/2018 0.12 % mouthwash (two) times a day. 15 mL diaper,brief,adult,dispos One brief 3 times 90 each 05/201706/19/2018 able (ADULT BRIEFS - daily as needed for LARGE) miscIndications: urinary Functional Incontinence incontinence. Urinary docusate sodium (COLACE) Take 1 capsule by 0 06/0305/15/2021 100 mg capsule mouth 2 (two) times a day. DULoxetine (CYMBALTA) 60 Take 1 capsule (60 60 capsule 3 06/19/[address] capsuleIndications: mg total) by mouth Fibromyalgia 2 (two) times a day. folic acid 1 mg Take 1 tablet 90 tablet 3 11/14/20172017 tabletIndications: (1,000 mcg total) Arthritis Rheumatoid by mouth daily. ([facility]) leflunomide (ARAVA) 20 mg Take 1 tablet (20 30 tablet 6 02/20/2018 tabletIndications: mg total) by mouth Arthritis Rheumatoid daily. (HCC) levothyroxine (LEVOXYL) Take 1 tablet (75 90 tablet 3 11/1406/19/2018 75 mcg tabletIndications: mcg total) by mouth Hypothyroidism Acquired daily. LORazepam (ATIVAN) 0.5 mg as needed. 0 11/17/2017 06/19/2018 tablet meclizine (ANTIVERT) 25 Take 1 tablet (25 30 tablet 0 01/0806/19/2018 mg tabletIndications: mg total) by mouth Dizziness 3 (three) times a day as needed for dizziness. methotrexate 2.5 mg Take 8 tablets (20 32 tablet 0 11/15/19 18 02/20/2018 tabletIndications: mg total) by mouth Arthritis Rheumatoid once a week. (HCC) omeprazole (PriLOSEC) 20 Take 1 capsule (20 30 capsule 11 06/19/2018 mg capsuleIndications: mg total) by mouth Dyspepsia every morning before breakfast. ondansetron ODT Place 4 mg under 0 11/05/2017 (ZOFRAN-ODT) 4 mg the tongue as disintegrating tablet needed. predniSONE (DELTASONE) 5 Take 1 tablet (5 mg 90 tablet 0 02/20/2018 mg tabletIndications: total) by mouth Arthritis Rheumatoid daily. (HCC) documented as of this encounter Plan of Treatment Upcoming Encounters Date Type Specialty Care Team Description 02/01/2022 Comprehensive Visit Family Medicine Cynthia Rockwell A PRN, C.N.P. [address] [place], [place] [phone] (Wo rk) documented as of this encounter Procedures Procedure Name Priority Date/Time Associated Comments Diagnosis BI BREAST RAD - Routine 01/08/2018 10:41 Screening Results fo r this SCREENING (most inpatients AM RECREATION THERAPIST Mammogram Average proced ure are in BILATERAL and all Risk Patient the results outpatients) section. documented in this encounter Results BI Breast Screening Bilateral (01/08/2018 10:41 AM RECREATION THERAPIST) Anatomical Region Laterality Modality Breast, Breast Imaging RST LOS, Breast Imaging ARZ LOS, [address] Bilateral Mammography Imaging [facility] Specimen (Source) Anatomical Collection Method Collection Time Re ceived Time Location / / Volume Laterality 01/08/2018 2:07 PM RECREATION THERAPIST Impressions 01/08/2018 2:08 PM RECREATION THERAPIST IMPRESSION: ??Negative. RECOMMENDATION: ??Annual Screening Mammo gram ASSESSMENT: ??BI-RADS: 1: Negative. Narrative 01/08/2018 2:08 PM RECREATION THERAPIST EXAM: ??BI BREAST SCREENING BILATERAL Current study was evaluated with a Compu ter Aided Detection (CAD) system. INDICATION: ??Screening mammogram. COMPARISON: ??Prior exam(s) were availab le and reviewed for comparison. DENSITY: ??a. The breast(s) are almost e ntirely fatty. FINDINGS: ??No mammographic findings of malignancy. Procedure Note Alda Mejia M.D. - 01/08/2018Forma tting of this note might be different from the original. EXAM: BI BREAST SCREENING BILATERAL Current study was evaluated with a Compu ter Aided Detection (CAD) system. INDICATION: Screening mammogram. COMPARISON: Prior exam(s) were available and reviewed for comparison. DENSITY: a. The breast(s) are almost ent irely fatty. FINDINGS: No mammographic findings of ma lignancy. IMPRESSION: Negative. RECOMMENDATION: Annual Screening Mammogr am ASSESSMENT: BI-RADS: 1: Negative. Cynthia Rockwell APRN C.N.P. IMG BI PROCEDURES documented in this encounter Visit Diagnoses Diagnosis Screening Mammogram Average Risk Patient Moroccan Language Deficit - Primary General Medical Examination Adult Hypothyroidism Acquired Arthritis Rheumatoid (HCC) High Risk Medication History Of Falling Encounter For COVID-19 Vaccine Immunizat ion Need Vaccine Immunization Influenza Encounter For Other Screening For Malign ant Neoplasm Of Breast documented in this encounter Care Teams Can Closing Machine Tender Relationship Specialty Start Date End Date Cynthia Rockwell APRN, C.N.P. PCP - General 08/16/16 [address] [place] [phone] documented as of this encounter
--- OUTSIDE RECORDS SUMMARY | 2022-01-21 23:25 | XMS_ITS | Encounter Summary ---
:1955 Author Organization [facility] Address [address] [place] [address] Care Team Providers Name Role Phone Cynthia Rockwell APRN, C.N.P. Primary Care Provider [phone] Encounter Details Date Type Department Care Team Description 07/04/2017 Orders Only Department of Family Cynthia Rockwell, Art hritis Rheumatoid (HCC) (Primary Dx); Medicine, [place] SOHAN C.N.P. Primary Osteoarthritis Knee Bilateral; Clinic, in [place], [address] Functional Incontinence [place], [place] [address] [address] [place], [place] [phone] [address] (Work) [phone] Social History Tobacco Use Types Packs/Day Years [...] Cynthia Rockwell A PRN, C.N.P. [address] [place], [place] [phone] (Wo rk) documented as of this encounter Visit Diagnoses Diagnosis Arthritis Rheumatoid (HCC) - Primary Primary Osteoarthritis Knee Bilateral Functional Incontinence Urinary Central African Language Deficit - Primary General Medical Examination Adult Hypothyroidism Acquired Arthritis Rheumatoid (HCC) High Risk Medication History Of Falling Encounter For COVID-19 Vaccine Immunizat ion Need Vaccine Immunization Influenza Encounter For Other Screening For Malign ant Neoplasm Of Breast documented in this encounter Care Teams Patch Finisher Relationship Specialty Start Date End Date Cynthia Rockwell APRN, C.N.P. PCP - General 08/16/160 [address], [place] [address] documented as of this encounter
--- OUTSIDE RECORDS SUMMARY | 2022-01-21 23:25 | XMS_ITS | Encounter Summary ---
:1955 Author Organization [facility] Address [address] [place] [address] Care Team Providers Name Role Phone Cynthia Rockwell APRN, C.N.P. Primary Care Provider Reason for Visit Reason Comments Med Refill Encounter Details Date Type Department Care Team Description 08/02/2017 Refill Division of Rheumatology in [place] Ar[place] APRN, Med Refill [place], [place] C.N.P. [address] [facility] [address] [place] [address] [place] [address] [phone] (Wo rk) Social History Tobacco Use Types [...] or relatives? How often do you attend samaritan or 1 to 4 times per year 09/01 shinto services? Do you belong to any clubs or No 09/18/2018 organizations such as samaritan groups, unions, fraternal or athletic groups, or [...] this encounter Miscellaneous Notes Telephone Encounter - Dalzell, Alison M - 08/08/2017 8:19 AM CDT 2nd request documented in this encounter Plan of Treatment Upcoming Encounters Date Type Specialty Care Team Description 02/01/2022 Comprehensive Visit Family Medicine Cynthia Rockwell A PRN, C.N.P. [address], [place] [phone] (Wo rk) documented as of this encounter Visit Diagnoses Not on filedocumented in this encounter Care Teams Sumo Wrestler Relationship Specialty Start Date End Date Cynthia Rockwell APRN, C.N.P. PCP - General 08/16/16 [address], [place] [address] documented as of this encounter
--- OUTSIDE RECORDS SUMMARY | 2022-01-21 23:25 | XMS_ITS | Encounter Summary ---
:1955 Author Organization [facility] Address [address] [place] [address] Care Team Providers Name Role Phone Cynthia Rockwell APRN, C.N.P. Primary Care Provider [phone] Reason for Visit Reason Comments Med Refill Encounter Details Date Type Department Care Team Description 08/30/2017 Office Visit Department of Family Jovany Miller, Nodule Rheumatoid (HCC) (Primary Dx); Medicine, Bradford Chirinos Hypothyroidism Acquired; Clinic, in [place], [address] [place] [address] Fibromyalgia; [place], [place] Dyspepsia [address] [address] [place], [place] [phone] [address] (Work) [phone] Social History Tobacco Use Types Packs/Day Years [...] Sign Reading Time Taken Comments Blood Pressure 110/62 08/30/2017 9:57 AM CDT Pulse 76 08/30/2017 9:57 AM CDT Temperature 36.3 ??C (97.3 ??F) 08/30/2017 9:57 AM CDT Respiratory Rate - - Oxygen Saturation - - Inhaled Oxygen Concentration - - Weight 70 kg (154 lb 5.2 oz) 08/30/2017 9:57 AM CDT Height - - Body Mass Index 29.14 06/20/2017 2:01 PM CDT documented in this encounter Patient Instructions Patient InstructionsJovany Miller M.D. - 08/30/2017 10:15 AM CDT 1. Hypothyroidism Acquired: well-controlled. TSH at 4.1 - levothyroxine (LEVOXYL) 75 mcg tablet; Take 1 tablet (75 mcg total) by mouth daily. Dispense: 90 tablet; Refill: 3 2. Nodule Rheumatoid (HCC) -Continue Methotrexate 20 mg weekly , prednisone 7.5 mg daily , Arava 20 mg daily and Folic acid 1 mg daily. - calcium carbonate-vitamin D3 1,250 mg (500 mg calcium)-200 unit per tablet; Take 1 tablet by mouthdaily with breakfast. Dispense: 30 tablet; Refill: 11 3. Fibromyalgia Increase Duloxetine 60 mg twice daily -Tylenol 1000 mg every 8 hours as needed for pain-control - DULoxetine (CYMBALTA) [address] capsule; Take 1 capsule (60 mg total) by mouth 2 (two) times a day.Dispense: 60 capsule; Refill: 3 - acetaminophen (TYLENOL) 500 mg tablet; Take 2 tablets (1,000 mg total) by mouth every 8 (eight) hours as needed for moderate pain or score 4-6 of 10. Dispense: 100 tablet; Refill: 2 documented in this encounter Progress Notes Jovany Miller M.D. - 08/30/2017 10:15 AM CDT DEPARTMENT OF FAMILY MEDICINE IN [place], [place] Chief Complaint Chief Complaint Patient presents with ??? Med Refill [facility] Med refill: Patient is here to get refill today. Rheumatoid arthritis: Patient reports she has diagnosed with rheumatoid arthritis for the past 5 years. She has been taking prednisone 7.5 mg daily, methotrexate 20 mg weekly, Arava 20 mg daily and folic acid 1 mg daily. Patient states she continues to have pain in the upper arm and has been getting worse. Patient reports She takes ibuprofen 2 tablets daily and Duloxetine 60 mg daily. Hypothyroidism: Patient states she has been taking Levothyroxine 75 mcg daily. She would like refillfor levothyroxine. The following portions of the patient's history were reviewed and updated as appropriate in the EMR:allergies, current medications, medical history and problem list on 08/30/17 REVIEW OF SYSTEMS Negative review of major organ systems apart from that noted in the HPI PHSYCIAL EXAM Temperature: 36.3 ??C Blood Pressure: 110/62 Weight: 70 kg Constitutional: She is oriented to person, place, and time. She appears well- developed and well-nourished. No distress. HENT: Head: Normocephalic and atraumatic. Cardiovascular: Normal rate, regular rhythm and normal heart sounds. No murmur heard. Pulmonary/Chest: Effort normal and breath sounds normal. No respiratory distress. She has no wheezes. Musculoskeletal: Right shoulder: She exhibits tenderness. Left shoulder: She exhibits tenderness. Right elbow: Tenderness found. Left elbow: Tenderness found. Right wrist: She exhibits tenderness. Left wrist: She exhibits tenderness. Right forearm: She exhibits tenderness. Left forearm: She exhibits tenderness. Right hand: She exhibits tenderness. Left hand: She exhibits tenderness. Neurological: She is alert and oriented to person, place, and time. LABS/IMAGING Recent Results (from the past 24 hour(s)) S-TSH (Thyroid-Stimulating Hormone - Sensitive) Collection Time: 08/29/17 2:08 PM Result Value TSH, Sensitive, S 4.1 ASSESSMENT AND PLAN Patient Instructions 1. Hypothyroidism Acquired: well-controlled. TSH at 4.1 -Continue Levothyroxine 75 mcg daily. -Refilled levothyroxine for one year. - levothyroxine (LEVOXYL) 75 mcg tablet; Take 1 tablet (75 mcg total) by mouth daily. Dispense: 90 tablet; Refill: 3 2. Nodule Rheumatoid (HCC) -Continue Methotrexate 20 mg weekly , prednisone 7.5 mg daily , Arava 20 mg daily and Folic acid 1 mg daily. -Increase Duloxetine 60 mg twice and Tylenol 1000 mg every 8 hours as needed for pain-control. -Added Calcium-vitamin D supplement since she is on chronic prednisone. -Patient would like to be off prednisone. Advised to bring this up during her visit with rheumatology. - calcium carbonate-vitamin D3 1,250 mg (500 mg calcium)-200 unit per tablet; Take 1 tablet by mouthdaily with breakfast. Dispense: 30 tablet; Refill: 11 3. Fibromyalgia Increase Duloxetine 60 mg twice daily -Tylenol 1000 mg every 8 hours as needed for pain-control - DULoxetine (CYMBALTA) [address] capsule; Take 1 capsule (60 mg total) by mouth 2 (two) times a day.Dispense: 60 capsule; Refill: 3 - acetaminophen (TYLENOL) 500 mg tablet; Take 2 tablets (1,000 mg total) by mouth every 8 (eight) hours as needed for moderate pain or score 4-6 of 10. Dispense: 100 tablet; Refill: 2 4. Dyspepsia : likely due to prednisone. -Will do trial of omeprazole daily - omeprazole (PriLOSEC) 20 mg capsule; Take 1 capsule (20 mg total) by mouth every morning before breakfast. Dispense: 30 capsule; Refill: 11 Options for treatment and follow-up care were reviewed with the patient . Althea Arias and/or guardian engaged in the decision making process and verbalized understanding of the options discussed and agreed with the final plan. A total of 25 minutes were spent [id number] with the patient during this encounter and 20 minutes were spent on counseling, discussing the plan and coordination of care. Jovany Miller M.D. documented in this encounter Plan of Treatment Upcoming Encounters Date Type Specialty Care Team Description 02/01/2022 Comprehensive Visit Family Medicine Cynthia Rockwell A PRN, C.N.P. [address] [phone] (Wo rk) documented as of this encounter Visit Diagnoses Diagnosis Nodule Rheumatoid (HCC) - Primary Hypothyroidism Acquired Fibromyalgia Dyspepsia Peruvian Language Deficit - Primary General Medical Examination Adult Hypothyroidism Acquired Arthritis Rheumatoid (HCC) High Risk Medication History Of Falling Encounter For COVID-19 Vaccine Immunizat ion Need Vaccine Immunization Influenza Encounter For Other Screening For Malign ant Neoplasm Of Breast documented in this encounter Care Teams Crusher And Binder Operator Relationship Specialty Start Date End Date Cynthia Rockwell, SOHAN, C.N.P. PCP - General 08/16/[address] [phone] documented as of this encounter
--- OUTSIDE RECORDS SUMMARY | 2022-01-21 23:25 | XMS_ITS | Encounter Summary ---
:1955 Author Organization [facility] Address [address] [place] [address] Care Team Providers Name Role Phone Cynthia Rockwell APRN, C.N.P. Primary Care Provider [phone] Reason for Visit Reason Comments Other Passed out last Saturday (12/03 11/19) Has pain on the right side of head. Had diarrhea and vomiting also. Feeling light headed now. Appointment Request (Routine) - Closed Specialty Diagnoses / Procedures Referred By Contact Refer red To Contact Family Medicine Referral ID Status Reason Start Date Expiration Date Visits Requ ested Visits Authorized [id number] Closed 01/01/2018 01/01/2019 1 Encounter Details Date Type Department Care Team Description 01/08/2018 Office Visit Department of Family Cynthia Rockwell, Gas troenteritis Viral Or Presumed Viral (Primary Dx); Medicine, Bradford PARRY, C.N.P. Dizziness; Clinic, in [address] Arthritis Rheumatoid (HCC); [place], [place] High Risk Medication; [address] [address] Fibromyalgia [place], [place] [phone] (Work) [phone] Social History Tobacco Use Types Packs/Day Years [...] 09/18/2018 organizations such as nondenominational groups, unions, [employer] or athletic groups, or school groups? How [...] Sign Reading Time Taken Comments Blood Pressure 103/73 01/08/2018 9:01 AM PSYCHOLOGIST CLINICAL Pulse 79 01/08/2018 9:01 AM PSYCHOLOGIST CLINICAL Temperature 36.3 ??C (97.3 ??F) 01/08/2018 9:01 AM PSYCHOLOGIST CLINICAL Respiratory Rate 20 01/08/2018 9:01 AM PSYCHOLOGIST CLINICAL Oxygen Saturation - - Inhaled Oxygen Concentration - - Weight 70 kg (154 lb 5.2 oz) 01/08/2018 9:01 AM PSYCHOLOGIST CLINICAL Height - - Body Mass Index 29.52 09/19/2017 2:14 PM CDT documented in this encounter Patient Instructions AttachmentsThe following attachments cannot be sent through Care Everywhere. Dizziness (Bruneian)documented in this encounter Progress Notes Cynthia Rockwell, HAND MOLD MAKER, C.N.P. - 01/08/2018 8:45 AM CST SUBJECTIVE CHIEF COMPLAINT: Chief Complaint Patient presents with ??? Other Passed out last Saturday (12/30/17) Has pain on the right side of head. Had diarrhea and vomiting also. Feeling light headed now. HISTORY OF PRESENT ILLNESS: Althea is being seen with the assistance of [employer] Boiler Reliner. She is here for follow-up urgent care [place] December 30, 2017. She had gastroenteritis with vomiting and diarrhea, she becamelightheaded and had a near-syncope experience. She was evaluated with labs and CT scan, all were nega tive. She was told to follow up with primary care. She states she continues to have some episodes ofdizziness. Vomiting and diarrhea have completely resolved. She admits she has not been taking in much in the way of fluids. She has rheumatoid arthritis and is due for labs including CBC creatinine andAST. She follows with Rheumatology at [facility] in [place]. She is currently on methotrexate, prednisone and Arava. She is requesting refill of acetaminophen. REVIEW OF SYSTEMS: A 10 system review [...] 4-6 of 10., Disp: 100 tablet, Rfl: 2 ??? ammonium lactate (AMLACTIN) 12 % cream, Apply topically daily., Disp: 385 g, Rfl: 1 ??? calcium carbonate-vitamin D3 1,250 mg (500 mg calcium)-200 unit per tablet, Take 1 tablet by mouth daily with breakfast., Disp: 30 tablet, Rfl: 11 ??? chlorhexidine (PERIDEX) 0.12 % mouthwash, Swish and spit 2 (two) times a day. 15 mL, Disp: 473 mL, Rfl: 3 ??? diaper,brief,adult,disposable (ADULT BRIEFS - LARGE) misc, One brief 3 times daily as needed forurinary incontinence., Disp: 90 each, Rfl: 11 ??? DULoxetine (CYMBALTA) [address] capsule, Take 1 capsule (60 mg total) by mouth 2 (two) times a day., Disp: 60 capsule, Rfl: 3 ??? folic acid 1 mg tablet, Take 1 tablet (1,000 mcg total) by mouth daily., Disp: 90 tablet, Rfl: 3 ??? leflunomide (ARAVA) 20 mg tablet, Take 1 tablet (20 mg total) by mouth daily., Disp: 30 tablet, Rfl: 6 ??? levothyroxine (LEVOXYL) 75 mcg tablet, Take 1 tablet (75 mcg total) by mouth daily., Disp: 90 tablet, Rfl: 3 ??? LORazepam (ATIVAN) 0.5 mg tablet, as needed. , Disp: , Rfl: ??? meclizine (ANTIVERT) 25 mg tablet, Take 1 tablet (25 mg total) by mouth 3 (three) times a day asneeded for dizziness., Disp: 30 tablet, Rfl: 0 ??? methotrexate 2.5 mg tablet, Take 8 tablets (20 mg total) by mouth once a week., Disp: 32 tablet,Rfl: 0 ??? omeprazole (PriLOSEC) 20 mg capsule, Take 1 capsule (20 mg total) by mouth every morning before breakfast., Disp: 30 capsule, Rfl: 11 ??? ondansetron ODT (ZOFRAN-ODT) 4 mg disintegrating tablet, Place 4 mg under the tongue as needed. , Disp: , Rfl: ??? predniSONE (DELTASONE) 5 mg tablet, Take 1 tablet (5 mg total) by mouth daily., Disp: 90 tablet,Rfl: 0 OBJECTIVE LABS and DIAGNOSTICS: CBC, BMP and AST are pending. VITAL SIGNS: Temperature: [36.3 ??C] 36.3 ??C Resp Rate: [20] 20 Blood Pressure: (103)/(73) 103/73 Pulse Rate: [79] 79 PHYSICAL EXAM: GENERAL: In general, the patient [...] are +2 and symmetrical. ASSESSMENT /PLAN: #1 Gastroenteritis Viral Or Presumed Viral Encourage adequate fluids throughout the day. Checking BMP. #2 Dizziness Meclizine 25 mg, 1 tablet up to 3 times daily as needed for dizziness. Rest, recheck if symptoms do not improve. #3 Arthritis Rheumatoid (HCC) #4 High Risk Medication Continue to follow with Rheumatology at [facility] in [place]. Checking CBC, creatinine and AST today. Acetaminophen 500 mg, 2 tabs every 8 hours as needed for discomfort. HEALTH MAINTENANCE: Up-to-date. HOLOGIST CLINICAL documented in this encounter Plan of Treatment Upcoming Encounters Date Type Specialty Care Team Description 02/01/2022 Comprehensive Visit Family Medicine Cynthia Rockwell A PRN, C.N.P. [address] [facility] [phone] (Wo rk) documented as of this encounter Procedures Procedure Name Priority Date/Time Associated Comments Diagnosis CBC WITH DIFFERENTIAL, B Routine 01/08/2018 9:40 Arthritis Results for this AM PSYCHOLOGIST CLINICAL Rheumatoid (HCC) procedure are in High Risk the results Medication section. ASPARTATE Routine 01/08/2018 9:40 Arthritis Results for this AMINOTRANSFERASE (AST), AM PSYCHOLOGIST CLINICAL Rheumato id (HCC) procedure are in S/P High Risk the results Medication section. BASIC METABOLIC PANEL, Routine 01/08/2018 9:40 Arthritis Re sults for this S/P AM PSYCHOLOGIST CLINICAL Rheumatoid (HCC) procedure are in High Risk the results Medication section. documented in this encounter Results AST (Aspartate Aminotransferase) (01/08/2018 9:40 AM PSYCHOLOGIST CLINICAL) Patholo gist Method Time Signature Aspartate 22 8 - 43 01/08/2018 [facility] Aminotransferase U/L 2:23 PM [facility] W-21 (AST), [employer] [place] [facility] Specimen Anatomical Collection Method Collection Time Receive d Time (Source) Location / / Volume Laterality Blood (Blood, 01/08/2018 9:40 AM 01/09/20 18 1:08 Venous) PSYCHOLOGIST CLINICAL PM PSYCHOLOGIST CLINICAL Cynthia Rockwell APRN, C.N.P. LAB BLOOD ADD-ON Performing Organization Address City/State/ZIP Code Phon e Number [facility] [address] [place] [address] LAB (ABNORMAL) Basic Metabolic Panel (01/08/2018 9:40 AM PSYCHOLOGIST CLINICAL) Analysis Performed At Patho logist Time Signature Potassium, S 3.9 3.6 - 5.2 01/08/2018 [facility] mmol/L 2:23 PM [facility] Sodium, S 142 135 - 145 01/08/2018 [facility] mmol/L 2:23 PM [facility] Chloride, S 107 98 - 107 01/08/2018 [facility] mmol/L 2:23 PM [facility] Bicarbonate, S 27 22 - 29 01/08/2018 [facility] mmol/L 2:23 PM [facility] Anion Gap 8 7 - 15 01/08/2018 [facility] 2:23 PM [facility] BUN (Blood Urea 12 6 - 21 01/08/2018 [facility] Nitrogen), S mg/dL 2:23 PM [facility] Creatinine 0.58 (L) 0.59 - 01/08/2018 [facility] 1.04 mg/dL 2:23 PM [facility] eGFR-Non >90 >=60 01/08/2018 [facility] Black/ mL/min/BSA 2:23 PM [facility] [place] [facility] Comment: ----ADDITIONAL INFORMATION---- Estimated GFR calculated using the 2009 CKD_EPI creatinine equation. eGFR-Black/ >90 >=60 mL/min/BSA 2017 2:23 PM [facility] Comment: ----ADDITIONAL INFORMATION---- Estimated GFR calculated using the 2009 CKD_EPI creatinine equation. Calcium, Total, S 8.9 8.8 - 10.2 mg/dL 01/08/2018 2 :23 PM [facility] Glucose, S 96 70 - 140 mg/dL 01/08/2018 2:23 PM [facility] [place] [facility] Specimen Anatomical Collection Method Collection Time Receive d Time (Source) Location / / Volume Laterality Blood (Blood, 01/08/2018 9:40 AM 01/09/20 18 1:08 Venous) PSYCHOLOGIST CLINICAL PM [facility] Cynthia Rockwell APRN C.N.P. LAB BLOOD ADD-ON Performing Organization Address City/State/ZIP Code Phon e Number [facility] [address] [place] [address] LAB CBC with Differential, Blood (01/08/2018 9:40 AM PSYCHOLOGIST CLINICAL) P athologist Signature Hemoglobin 12.3 11.6 - 01/08/2018 [facility] 15.0 g/dL 10:14 AM [facility] [employer] [facility] Hematocrit 39.2 35.5 - 01/08/2018 [facility] 44.9 % 10:14 AM [facility] [employer] [facility] Erythrocytes 4.29 3.92 - 01/08/2018 [facility] 5.13 10:14 AM [facility] x10(12)/L [facility] MCV 91.4 78.2 - 01/08/2018 [facility] 97.9 fL 10:14 AM [facility] [employer] [facility] RBC Distrib Width 14.4 12.2 - 01/08/2018 [facility] 16.1 % 10:14 AM [facility] Platelet Count 184 157 - 371 01/08/2018 [facility] x10(9)/L 10:14 AM [facility] Leukocytes 3.7 3.4 - 9.6 01/08/2018 [facility] x10(9)/L 10:14 AM [facility] [employer] [facility] Neutrophils 1.90 1.56 - 01/08/2018 [facility] 6.45 10:14 AM [facility] x10(9)/L [facility] Lymphocytes 1.20 0.95 - 01/08/2018 [facility] 3.07 10:14 AM [facility] x10(9)/L [facility]- [facility] Monocytes 0.43 0.26 - 01/08/2018 [facility] 0.81 10:14 AM [facility] x10(9)/L [facility] Eosinophils 0.12 0.03 - 01/08/2018 [facility] 0.48 10:14 AM [facility] x10(9)/L [facility] Basophils 0.02 0.01 - 01/08/2018 [facility] 0.08 10:14 AM [facility] x10(9)/L [facility] Specimen Anatomical Collection Method Collection Time Receive d Time (Source) Location / / Volume Laterality Blood (Blood, 01/08/2018 9:40 AM 01/09/20 18 9:40 Venous) PSYCHOLOGIST CLINICAL AM PSYCHOLOGIST CLINICAL Cynthia Rockwell APRN, C.N.P. LAB BLOOD ADD-ON Performing Organization Address City/State/ZIP Code Phon e Number - [place] [address] [place] [address] LAB documented in this encounter Visit Diagnoses Diagnosis Gastroenteritis Viral Or Presumed Viral - Primary Dizziness Arthritis Rheumatoid (HCC) High Risk Medication Fibromyalgia Bruneian Language Deficit - Primary General Medical Examination Adult Hypothyroidism Acquired Arthritis Rheumatoid (HCC) High Risk Medication History Of Falling Encounter For COVID-19 Vaccine Immunizat ion Need Vaccine Immunization Influenza Encounter For Other Screening For Malign ant Neoplasm Of Breast documented in this encounter Care Teams Cherry Sorter Relationship Specialty Start Date End Date Cynthia Rockwell APRN, C.N.P. PCP - General 08/16/16 [address] [place] [phone] documented as of this encounter
--- OUTSIDE RECORDS SUMMARY | 2022-01-21 23:25 | XMS_ITS | Encounter Summary ---
:1955 Author Organization [facility] Address [address] [place] [address] Care Team Providers Name Role Phone Cynthia Rockwell APRN, C.N.P. Primary Care Provider [phone] Encounter Details Date Type Department Care Team Description 01/29/2018 Clinical Communication Division of Perry Arana, Rheumatology in [facility], C.N.P. [place], [place] [address] [facility] [address] [place] [phone] Social History Tobacco Use Types Packs/Day Years [...] many times do you More than three macrin es a week 09/18/2018 talk on the phone with family, friends, or neighbors? How often do you get together with friends Three times a wee k 09/26/2018 or relatives? How often do you attend confucianism or 1 to 4 times per year 09/01 gnosticism services? Do you belong to any clubs [...] encounter Miscellaneous Notes Telephone Encounter - Perry Arana, SOHAN, C.N.P. - 01/30/2018 1:32 PM AUTOMATION CONSULTANT Does Dr. Castillo have follow up appointments? She last saw patient and was tweaking her medication. MATION CONSULTANT Telephone Encounter - Otilia Sharp - 01/30/2018 10:22 AM CST Sh would like to come to [place]. Please order tests if need. Thanks, Otilia MATION CONSULTANT Telephone Encounter - Perry Arana APRN, C.N.P. - 01/29/2018 3:52 PM AUTOMATION CONSULTANT I believe Yoko Inman is still going to [place] periodically. I am wondering if patient would prefer to see her due to proximity. Traveling here does seem to be a challenge for the patient. Please letme know if she would still prefer to come to [place] and I will place some orders. MATION CONSULTANT Telephone Encounter - Otilia Sharp - 01/29/2018 9:04 AM CST Perry Patients son calling to set up appointment. No orders. Will you see? Thank you Otilia Em [phone] MATION CONSULTANT documented in this encounter Plan of Treatment Upcoming Encounters Date Type Specialty Care Team Description 02/01/2022 Comprehensive Visit Family Medicine Cynthia Rockwell A PRN, C.N.P. [address] [place], [place] [phone] (Wo rk) documented as of this encounter Visit Diagnoses Not on filedocumented in this encounter Care Teams Help Desk Support Relationship Specialty Start Date End Date Cynthia Rockwell APRN, C.N.P. PCP - General 08/16/16 [address] [facility] [place] [address] documented as of this encounter
--- OUTSIDE RECORDS SUMMARY | 2022-01-21 23:25 | XMS_ITS | Encounter Summary ---
:1955 Author Organization [facility] Address [address] [place] [address] Care Team Providers Name Role Phone Cynthia Rockwell APRN, C.N.P. Primary Care Provider Encounter Details Date Type Department Care Team Description 04/01/2017 Hospital Encounter HX NO MAPPING Social History Tobacco Use Types Packs/Day Years [...] 1 to 4 times per year 09/01 mosque services? Do you belong to any clubs [...] Dispensed Refills Start Date End Date acetaminophen Take 2 tablets by 0 03/15/2015 06/2 11/2017 (for_TYLENOL) 325 mg mouth every 4 tablet (four) hours as needed. ammonium lactate daily. 0 12/17/2016 11/15/19 18 (for_AMLACTIN) 12 % cream CALCIUM CARB/VIT Take by mouth 2 0 06/27/2011 D3/MINERALS (two) times a day. (CALCIUM-VITAMIN D ORAL) chlorhexidine 2 (two) times a 0 02/12/20172017 (for_PERIDEX) 0.12 % day. mouthwash docusate sodium (COLACE) Take 1 capsule by 0 /08/201405/15/2021 100 mg capsule mouth 2 (two) times a day. DULoxetine (for_CYMBALTA) Take 60 mg by mouth 0 1 03/06/2016 08/30/[address] capsule daily. folic acid 1 mg tablet Take 1 tablet by 0 012 11/14/2017 mouth daily. gabapentin (for_NEURONTIN) Take 1 capsule by 0 08/30/2017 300 mg capsule mouth at bedtime. leflunomide (ARAVA) 20 mg Take 1 tablet by 0 03/0608/02/2017 tablet mouth daily. levothyroxine (LEVOXYL) 75 Take 1 tablet by 0 06/20/2017 mcg tablet mouth daily. methotrexate 2.5 mg tablet Take 8 tablets by 0 11/14/2017 mouth once a week. predniSONE (for_DELTASONE) Take by mouth 0 201111/14/2017 5 mg tablet daily. documented as of this encounter Plan of Treatment Upcoming Encounters Date Type Specialty Care Team Description 02/01/2022 Comprehensive Visit Family Medicine Cynthia Rockwell A PRN, C.N.P. [address] [place], [place] [phone] (Wo rk) documented as of this encounter Visit Diagnoses Not on filedocumented in this encounter Care Teams Bookseamer Blindstitch Relationship Specialty Start Date End Date Cynthia Rockwell CONSERVATION POLICY ANALYST, C.N.P. PCP - General 08/16/16 [address], [place] [phone] documented as of this encounter
--- OUTSIDE RECORDS SUMMARY | 2022-01-21 23:25 | XMS_ITS | Encounter Summary ---
:1955 Author Organization [facility] Address [address] [place] [address] Care Team Providers Name Role Phone Cynthia Rockwell APRN, C.N.P. Primary Care Provider [phone] Reason for Visit Reason Comments Communication Encounter Details Date Type Department Care Team Description 06/12/2017 Clinical Communication Department of Mayra Dumont, Communication Medicine, [place] Pam[place], [facility] [employer] [employer], in [address] [phone] Social History Tobacco Use Types Packs/Day Years Used Date Smoking Tobacco: Unknown Smokeless Tobacco: Never Alcohol Use Standard Drinks/Week [...] this encounter Miscellaneous Notes Telephone Encounter - Echo Pham, R.N. - 06/19/2017 1:57 PM CDT Attempted to reach patient on multiple numbers via [employer] interpreters and unable to speak to patient directly. Message left on one number. Telephone Encounter - Echo Pham R.N. - 06/19/2017 10:53 AM CDT Contacted [facility] and patient's home care nurse unable to make it today due to the weather but should be able to see patient on . He is to let patient know that she needs labs done before taking her methotrexate. I asked home health agency to have home health nurse call clinic and let nurse know that patient got the message. Telephone Encounter - Echo Pham R.N. - 06/14/2017 11:18 AM CDT Contacted patient's home health care agency, [facility]. Patient's home health nurse, Sravani not available at the time and would be back to see patient on Saturday. Message left with home health worker to give message to Sravani, he states that they will attempt to call patient as well. Telephone Encounter - Echo Pham R.N. - 06/14/2017 10:51 AM CDT Call received from patient's dowel inserting machine operator, Dr. Ping Castillo regarding patient's methotrexate. She would like patient to come in and have liver panel and CBC checked. She is also advising that if labs are okay, patient's can resume methotrexate and doing SubQ weekly injections is an option and can be done by home health nurse. Dr. Miller placed lab orders for patient. Attempted to contact patient via [employer] interpreters, left message that patient needs labs done today or Saturday. Not to resume methotrexate until lab results are back. Telephone Encounter - Echo Pham R.N. - 06/12/2017 3:43 PM CDT Patient's home health nurse calling clinic to confirm patient's methotrexate dose. According to mostrecent rheumatology progress note patient is to be taking 8 tablets one day a week, Saturday at bedtime. RN for home health confirms that that is what patient's bottle says. Home health nurse reports that patient states when they take 8 tablets at once it makes her nauseous and instead she has been taking 1 tablet twice a day daily. She has been taking it this way for last 2 months. Home health nursesays he told patient to stop taking it for now until there is further advisement from [employer]. Home health nurse notes he won't be back to see patient until next week but would like nurse to callpatient and also call home health office with patient's instructions. Home health office is [phone] his name is Sravani jacome. documented in this encounter Plan of Treatment Upcoming Encounters Date Type Specialty Care Team Description 02/01/2022 Comprehensive Visit Family Medicine Cynthia Rockwell A PRN, C.N.P. [address], [place] [phone] (Wo rk) documented as of this encounter Visit Diagnoses Not on filedocumented in this encounter Care Teams Hammer Runner Relationship Specialty Start Date End Date Cynthia Rockwell APRN, C.N.P. PCP - General 08/16/16 [address], [place] [address] documented as of this encounter
--- OUTSIDE RECORDS SUMMARY | 2022-01-21 23:25 | XMS_ITS | Encounter Summary ---
:1955 Author Organization [facility] Address [address] [place] [address] Care Team Providers Name Role Phone Cynthia Rockwell APRN, C.N.P. Primary Care Provider [phone] Encounter Details Date Type Department Care Team Description 09/19/2017 Hospital Encounter Department of Cynthia Rockwell Cancer Laboratory Medicine SOHAN Taylor, C.N .[facility] in [place], [address] [address] [place], [place] [phone] [address] (Work) [phone] Social History Tobacco Use Types Packs/Day Years [...] End Date acetaminophen (TYLENOL) Take 2 tablets (1,000 100 tablet 2 0 09/19/2017 11/14/2017 500 mg mg total) by mouth tabletIndications: every 8 (eight) hours Fibromyalgia as needed for moderate pain or score 4-6 of 10. ammonium lactate daily. 0 12/17/2016 11/15/19 18 (for_AMLACTIN) 12 % cream calcium Take 1 tablet by 30 tablet 11 08/30/2017 11/15/19 18 carbonate-vitamin D3 mouth daily with 1,250 mg (500 mg breakfast. calcium)-200 unit per tabletIndications: Nodule Rheumatoid (HCC) chlorhexidine (PERIDEX) Swish and spit 2 473 mL 3 201709/21/2017 0.12 % mouthwash (two) times a day. diaper,brief,adult,disp One brief 3 times 90 each 11 07/0406/19/2018 osable (ADULT BRIEFS - daily as needed for LARGE) miscIndications: urinary incontinence. Functional Incontinence Urinary docusate sodium Take 1 capsule by 0 06/27/2014 (COLACE) 100 mg capsule mouth 2 (two) times a day. DULoxetine (CYMBALTA) Take 1 capsule (60 mg 60 capsule 3 11/14/[address] total) by mouth 2 capsuleIndications: (two) times a day. Fibromyalgia folic acid 1 mg tablet Take 1 tablet by 0 012 11/14/2017 mouth daily. leflunomide (ARAVA) 20 TAKE ONE TABLET BY 30 tablet 6 08/0811/14/2017 mg tablet MOUTH ONCE DAILY - CAN CAUSE PALPITATIONS levothyroxine (LEVOXYL) Take 1 tablet (75 mcg 90 tablet 3 0 08/30/2017 11/14/2017 75 mcg total) by mouth tabletIndications: daily. Hypothyroidism Acquired methotrexate 2.5 mg Take 8 tablets by 0 0 11/14/2017 tablet mouth once a week. omeprazole (PriLOSEC) Take 1 capsule (20 mg 30 capsule 11 11/14/2017 20 mg total) by mouth every capsuleIndications: morning before Dyspepsia breakfast. predniSONE Take by mouth daily. 0 10/09/201111/02 (for_DELTASONE) 5 mg tablet documented as of this encounter Plan of Treatment Upcoming Encounters Date Type Specialty Care Team Description 02/01/2022 Comprehensive Visit Family Medicine Cynthia Rockwell A PRN, C.N.P. [address] [place], [place] [phone] (Wo rk) documented as of this encounter Procedures Procedure Name Priority Date/Time Associated Diagnosis Comme nts OCCULT BLOOD, QL, Routine 10/03/2017 3:00 PM Screening Cancer Results for this IMMUNOCHEMICAL, F CDT Colon procedure are in the results section. documented in this encounter Results Fecal Occult Blood, Colorectal Cancer Screen, Qualitative, Immunochemical (10/03/2017 3:00 PM CDT) [facility] gist Method Time Signature Occult Blood, Negative Negative 10/04/2017 [facility] Fecal 8:44 AM CDT LABORATORIES - [facility] Comment: Negative result. ??This test will not de tect upper gastrointestinal bleeding; the HemoQuant test (9220)should be ordered if clinically indicated. Specimen Anatomical Collection Method Collection Time Receive d Time (Source) Location / / Volume Laterality Stool (Stool) 10/03/2017 3:00 PM 10/05/19 18 7:51 CDT AM CDT Cynthia Rockwell APRN, C.N.P. LAB BODY FLUIDS AND STOOLS ORDERABLES Performing Organization Address City/State/ZIP Code Phon e Number [facility] - [address] documented in this encounter Visit Diagnoses Diagnosis Screening Cancer Colon Syriac Language Deficit - Primary General Medical Examination Adult Hypothyroidism Acquired Arthritis Rheumatoid (HCC) High Risk Medication History Of Falling Encounter For COVID-19 Vaccine Immunizat ion Need Vaccine Immunization Influenza Encounter For Other Screening For Malign ant Neoplasm Of Breast documented in this encounter Care Teams Supervisor Harvesting Relationship Specialty Start Date End Date Cynthia Rockwell APRN, C.N.P. PCP - General 08/16/16 [address] [facility] [place] [address] documented as of this encounter
--- OUTSIDE RECORDS SUMMARY | 2022-01-21 23:25 | XMS_ITS | Encounter Summary ---
:1955 Author Organization [facility] Address [address] [place] [address] Care Team Providers Name Role Phone Cynthia Rockwell APRN, C.N.P. Primary Care Provider [phone] Reason for Visit Reason Comments Other Follow up medication check. Appointment Request (Routine) - Closed Specialty Diagnoses / Procedures Referred By Contact Refer red To Contact Family Medicine Referral ID Status Reason Start Date Expiration Date Visits Requ ested Visits Authorized [id number] Closed 06/19/2017 12/16/2017 1 1 Encounter Details Date Type Department Care Team Description 06/20/2017 Office Visit Department of Family Cynthia Rockwell, López hritis Rheumatoid (HCC) (Primary Dx); Medicine, [place] APRN, C.N.P. High Risk Medication; Clinic, in [place], [address] Hypothyroidism Acquired; [place], [place] Hypothyroidism; [address] [address] [place], [place] [phone] [address] (Work) [phone] Social History Tobacco Use Types Packs/Day Years [...] or relatives? How often do you attend zoroastrian or 1 to 4 times per year 09/01 presybeterian services? Do you belong to any clubs or No 09/18/2018 organizations such as zoroastrian groups, unions, fraternal or athletic groups, or [...] Sign Reading Time Taken Comments Blood Pressure 104/60 06/20/2017 2:01 PM CDT Pulse 68 06/20/2017 2:01 PM CDT Temperature 37.2 ??C (99 ??F) 06/20/2017 2:01 PM CDT Respiratory Rate 16 06/20/2017 2:01 PM CDT Oxygen Saturation - - Inhaled Oxygen Concentration - - Weight 70.7 kg (155 lb 13.8 oz) 06/20/2017 2:01 PM CDT Height 155 cm (5' 1.02) 06/20/2017 2:01 PM CDT Body Mass Index 29.43 06/20/2017 2:01 PM CDT documented in this encounter Patient Instructions Patient InstructionsCynthia Rockwell APRN, C.N.P. - 06/20/2017 1:30 PM CDT It was a pleasure seeing you in the clinic! My goal is to always provide excellent care for my patients. If you receive a clinic survey in the mail and felt you received great care, I would sure appreciate you filling it out and sending it in. Thanks and take care! AttachmentsThe following attachments cannot be sent through Care Everywhere. Hypothyroidism (Pakistani)documented in this encounter Progress Notes Cynthia Rockwell APRN, C.N.P. - 06/20/2017 1:30 PM CDT SUBJECTIVE CHIEF COMPLAINT: Chief Complaint Patient presents with ??? Other Follow up medication check. HISTORY OF PRESENT ILLNESS: Althea is here with her son. She is being seen with the assistance of [place] [employer] Sales Agent Business Services. Shehas rheumatoid arthritis and fibromyalgia. She follows with Rheumatology at [facility] in [place]. She was just seen there the end of May and Cymbalta was increased to 60 mg daily. Labs for high risk medication were also checked at her appointment in [place]. She has hypothyroidism stable on levothyroxine 75 mcg daily. She needs refill. REVIEW OF SYSTEMS: The following portions of the patient's history were reviewed and updated as appropriate: allergies,current medications, family history, medical history, social history, surgical history and problem list. ALLERGIES: No Known Allergies MEDICATIONS: Current Outpatient Prescriptions: ??? acetaminophen (for_TYLENOL) 325 mg tablet, Take 2 tablets by mouth every 4 (four) hours as needed., Disp: , Rfl: ??? ammonium lactate (for_AMLACTIN) 12 % cream, daily. , Disp: , Rfl: ??? chlorhexidine (for_PERIDEX) 0.12 % mouthwash, 2 (two) times a day. , Disp: , Rfl: ??? DULoxetine (for_CYMBALTA) [address] capsule, 60 mg. , Disp: , Rfl: ??? folic acid 1 mg tablet, Take 1 tablet by mouth daily., Disp: , Rfl: ??? gabapentin (for_NEURONTIN) 300 mg capsule, Take 1 capsule by mouth at bedtime., Disp: , Rfl: ??? leflunomide (ARAVA) 20 mg tablet, Take 1 tablet by mouth daily., Disp: , Rfl: ??? predniSONE (for_DELTASONE) 5 mg tablet, Take by mouth daily., Disp: , Rfl: ??? CALCIUM CARB/VIT D3/MINERALS (CALCIUM-VITAMIN D ORAL), Take by mouth 2 (two) times a day., Disp:, Rfl: ??? levothyroxine (LEVOXYL) 75 mcg tablet, Take 1 tablet (75 mcg total) by mouth daily., Disp: 90 tablet, Rfl: 1 ??? methotrexate 2.5 mg tablet, Take 8 tablets by mouth once a week. , Disp: , Rfl: OBJECTIVE VITAL SIGNS: Temperature: [37.2 ??C] 37.2 ??C Resp Rate: [16] 16 Blood Pressure: (104)/(60) 104/60 Pulse Rate: [68] 68 PHYSICAL EXAM: GENERAL: [...] symmetrical. ASSESSMENT /PLAN: #1 Arthritis Rheumatoid (HCC) Stable on Arava, methotrexate and low-dose prednisone. Continue to follow with Rheumatology at [facility] in [place]. #2 High Risk Medication Recheck CBC creatinine and AST in 3 months #3 Hypothyroi .dism Acquired Stable on levothyroxine 75 mcg daily. Refill provided. Recheck TSH in 2 months. #4 Fibromyalgia Stable on Cymbalta 60 mg daily. HEALTH MAINTENANCE: Due for mammogram. documented in this encounter Procedure Notes Gunjan Montes, L.P.N. - 06/20/2017 1:30 PM CDT [employer] used for office visit. ID# [id number] documented in this encounter Plan of Treatment Upcoming Encounters Date Type Specialty Care Team Description 02/01/2022 Comprehensive Visit Family Medicine Cynthia Rockwell A PRN, C.N.P. [address] [phone] (Wo rk) documented as of this encounter Visit Diagnoses Diagnosis Arthritis Rheumatoid (HCC) - Primary High Risk Medication Hypothyroidism Acquired Hypothyroidism Fibromyalgia Pakistani Language Deficit - Primary General Medical Examination Adult Hypothyroidism Acquired Arthritis Rheumatoid (HCC) High Risk Medication History Of Falling Encounter For COVID-19 Vaccine Immunizat ion Need Vaccine Immunization Influenza Encounter For Other Screening For Malign ant Neoplasm Of Breast documented in this encounter Care Teams Cylinder Loader Relationship Specialty Start Date End Date Cynthia Rockwlel, CHAIN HOIST OPERATOR, C.N.P. PCP - General 08/16/16 [address] [place] [phone] documented as of this encounter
--- OUTSIDE RECORDS SUMMARY | 2022-01-21 23:25 | XMS_ITS | Encounter Summary ---
:1955 Author Organization [facility] Address [address] [place] [address] Care Team Providers Name Role Phone Cynthia Rockwell APRN, C.N.P. Primary Care Provider [phone] Encounter Details Date Type Department Care Team Description 07/11/2017 Orders Only Department of Family Cynthia Rockwell, Fun ctional Incontinence Medicine, [place] SOHAN C.N.P. Urinary (Primary Dx) Clinic, in [place], [address] [address] [place], [place] [phone] [address] (Work) [phone] Social History Tobacco Use Types Packs/Day Years [...] many times do you More than three mracin es a week 09/18/2018 talk on the [...] Cynthia Rockwell A PRN, C.N.P. [address] [place] [phone] (Wo rk) documented as of this encounter Visit Diagnoses Diagnosis Functional Incontinence Urinary - Primar y Hebrew Language Deficit - Primary General Medical Examination Adult Hypothyroidism Acquired Arthritis Rheumatoid (HCC) High Risk Medication History Of Falling Encounter For COVID-19 Vaccine Immunizat ion Need Vaccine Immunization Influenza Encounter For Other Screening For Malign ant Neoplasm Of Breast documented in this encounter Care Teams Campaign Marketing Manager Relationship Specialty Start Date End Date Cynthia Rockwell APRN, C.N.P. PCP - General 08/16/[address] [address] documented as of this encounter
--- OUTSIDE RECORDS SUMMARY | 2022-01-21 23:25 | XMS_ITS | Encounter Summary ---
:1955 Author Organization [facility] Address [address] [place] [address] Care Team Providers Name Role Phone Cynthia Rockwell APRN, C.N.P. Primary Care Provider [phone] Reason for Visit Reason Comments URI Was seen at ER on 11/04/17. Flores s a dry cough, Throat hurts. Vomiting. Did a MRI. Chest hurts when she coughs. Will do flu shot. Appointment Request (Routine) - Closed Specialty Diagnoses / Procedures Referred By Contact Refer red To Contact Family Medicine Referral ID Status Reason Start Date Expiration Date Visits Requ ested Visits Authorized [id number] Closed 11/14/2017 11/14/2018 1 Encounter Details Date Type Department Care Team Description 11/14/2017 Office Visit Department of Family Cynthia Rockwell, Brenda pepsia (Primary Dx); Medicine, [place] SOHAN, C.N.P. Bronchitis; Clinic, in [place], [address] Fibromyalgia; [place], [place] Hypothyroidism Acquired; [address] [address] Nodule Rheumatoid (HCC); [place], [place] [phone] Arthritis Rheu matoid (HCC); [address] (Work) High Risk Medication; [phone] Need Vaccine Im munization Influenza (Fax) Social History Tobacco Use Types Packs/Day Years [...] 1 to 4 times per year 09/01 synagogue services? Do you belong to any clubs [...] Sign Reading Time Taken Comments Blood Pressure 115/64 11/14/2017 10:14 AM CDT Pulse 85 11/14/2017 10:14 AM CDT Temperature 37.1 ??C (98.8 ??F) 11/14/2017 10:14 AM CDT Respiratory Rate 20 11/14/2017 10:14 AM CDT Oxygen Saturation 98% 11/14/2017 10:14 AM CDT Inhaled Oxygen Concentration - - Weight 68.3 kg (150 lb 11 oz) 11/14/2017 10:14 AM CDT Height - - Body Mass Index 28.82 09/19/2017 2:14 PM CDT documented in this encounter Patient Instructions AttachmentsThe following attachments cannot be sent through Care Everywhere. Hypothyroidism (Citizen Of [place])documented in this encounter Progress Notes Cynthia Rockwell, SOHAN, C.N.P. - 11/14/2017 10:00 AM CDT SUBJECTIVE CHIEF COMPLAINT: Chief Complaint Patient presents with ??? MONTY Was seen at ER on 11/04/17. Has a dry cough, Throat hurts. Vomiting. Did a MRI. Chest hurts when she coughs. Will do flu shot. HISTORY OF PRESENT ILLNESS: Althea is being seen with the assistance of [place] [employer] Zigzag Machine Operator. She states she has had coughand congestion since returning from [place] 2 weeks ago. Throat is scratchy. Low-grade fever. Glands are swollen and tender. Increased fatigue. She was seen in the emergency room on 11/04/2017. Chest x-ray and CT chest revealed no evidence of pulmonary embolism or pneumonia. WBC was normal at 3.6, hemoglobin 11.9. [place] department of Health was contacted and swabs were taken for middle East Respiratory syndrome. She was treated with Robitussin AC and Zofran with improvement in symptoms. Shestates her cough has gotten worse. She states while in [place] she lost all of her medications. She has been off of them for the past 10days. She has rheumatoid arthritis and is on high-risk medications. She also has hypothyroidism, on levothyroxine. I will refill medications for her until she is seen again by Rheumatology at [facility] in [place]. REVIEW OF SYSTEMS: A 10 system review [...] mL, Disp: 473 mL, Rfl: 3 ??? codeine-guaiFENesin (ROBITUSSIN-AC) 10-100 mg/5 mL liquid, Take 5 mL by mouth., Disp: , Rfl: ??? diaper,brief,adult,disposable (ADULT BRIEFS - LARGE) misc, [...] disintegrating tablet, Place 4 mg under the tongue., Disp: , Rfl: ??? azithromycin (ZITHROMAX) 250 mg tablet, Take 500 mg (2 tablets) by mouth the first day then 250 mg (1 tablet) by mouth for 4 more days., Disp: 6 tablet, Rfl: 0 ??? benzonatate (TESSALON) 200 mg capsule, Take 1 capsule (200 mg total) by mouth 3 (three) times a day as needed for cough., Disp: 42 capsule, Rfl: 0 ??? predniSONE (DELTASONE) 5 mg tablet, Take 1 tablet (5 mg total) by mouth daily., Disp: 90 tablet,Rfl: 0 OBJECTIVE VITAL SIGNS: Temperature: [37.1 ??C] 37.1 ??C Resp Rate: [20] 20 Blood Pressure: (115)/(64) 115/64 SpO2: [98 %] 98 % Pulse Rate: [85] 85 PHYSICAL EXAM: GENERAL: Well-developed, well-nourished, in no acute distress. SKIN: Warm and dry. EYES: PERRLA. EOMI intact. Fundi sharp discs. Conjunctiva and lids normal. HEENT: TMs dull with serous fluid in the middle ear bilaterally . Throat clear. Nares congested withyellow mucus, tenderness over the maxillary sinuses. NECK: Supple. Mild anterior cervical lymphadenopathy. No thyromegaly. HEART: Regular rate and rhythm. S1, S2. No murmur. LUNGS: Bilateral upper airway rhonchi with expiratory wheeze. No rales. ABDOMEN: Soft, nontender. No hepatosplenomegaly. EXTREMITIES: Warm, dry. No peripheral edema. MENTAL: Alert and oriented times three. NEUROLOGIC: Deep tendon reflexes are +2 and symmetrical. ASSESSMENT /PLAN: #1 Acute Bronchitis Azithromycin 250 mg, take 2 tabs by mouth today, then 1 tab daily for 4 days. Encourage fluids. Acetaminophen 325 mg, 2 tabs every 4 hours as needed for discomfort. Tessalon Perles 200 mg capsule, take1 capsule by mouth 3 times a day as needed for cough. #2 Hypothyroidism Acquired Restart levothyroxine 75 mcg daily. Refill provided. #3 Arthritis Rheumatoid (HCC) #4 High Risk Medication Restart Cymbalta 60 mg 1 capsule twice daily; folic acid 1 mg, 1 tablet daily; Arava 20 mg, 1 tabletdaily; methotrexate 2.5 mg tablet, 8 tablets once a week; prednisone 5 mg tablet, 1 tablet daily. #5 Need Vaccine Immunization Influenza Influenza immunization given today. HEALTH MAINTENANCE: Due for mammogram. documented in this encounter Plan of Treatment Upcoming Encounters Date Type Specialty Care Team Description 02/01/2022 Comprehensive Visit Family Medicine Cynthia Rockwell A PRN, C.N.P. [address], [place] [phone] (Wo rk) documented as of this encounter Visit Diagnoses Diagnosis Dyspepsia - Primary Bronchitis Fibromyalgia Hypothyroidism Acquired Nodule Rheumatoid (HCC) Arthritis Rheumatoid (HCC) High Risk Medication Need Vaccine Immunization Influenza Citizen Of [place] Language Deficit - Primary General Medical Examination Adult Hypothyroidism Acquired Arthritis Rheumatoid (HCC) High Risk Medication History Of Falling Encounter For COVID-19 Vaccine Immunizat ion Need Vaccine Immunization Influenza Encounter For Other Screening For Malign ant Neoplasm Of Breast documented in this encounter Care Teams Neurourologist Relationship Specialty Start Date End Date Cynthia Rockwell APRN, C.N.P. PCP - General 08/16/16 [address], [place] [address] documented as of this encounter
--- OUTSIDE RECORDS SUMMARY | 2022-01-21 23:25 | XMS_ITS | Encounter Summary ---
:1955 Author Organization [facility] Address [address] [place] [address] Care Team Providers Name Role Phone Cynthia Rockwell APRN, C.N.P. Primary Care Provider [phone] Encounter Details Date Type Department Care Team Description 06/14/2017 Orders Only Department of Family Jovany Miller Arthri tis Rheumatoid Medicine, [place] ([facility]) (Primary Dx) Clinic, in [place], [facility] [address] [address] [place], [place] [phone] [address] (Work) [phone] Social History Tobacco Use Types Packs/Day Years [...] 1 to 4 times per year 09/01 bahai services? Do you belong to any clubs [...] Family Medicine Cynthia Rockwell A PRN, C.N.P. [address], [place] [phone] (Wo rk) documented as of this encounter Visit Diagnoses Diagnosis Arthritis Rheumatoid (HCC) - Primary Finnish Language Deficit - Primary General Medical Examination Adult Hypothyroidism Acquired Arthritis Rheumatoid (HCC) High Risk Medication History Of Falling Encounter For COVID-19 Vaccine Immunizat ion Need Vaccine Immunization Influenza Encounter For Other Screening For Malign ant Neoplasm Of Breast documented in this encounter Care Teams Occupational Therapist Relationship Specialty Start Date End Date Cynthia Rockwell APRN, C.N.P. PCP - General 08/16/[address] [phone] documented as of this encounter
--- OUTSIDE RECORDS SUMMARY | 2022-01-21 23:25 | XMS_ITS | Encounter Summary ---
:1955 Author Organization [facility] Address [address] [place] [address] Care Team Providers Name Role Phone Cynthia Rockwell APRN, C.N.P. Primary Care Provider [phone] Encounter Details Date Type Department Care Team Description 01/30/2018 Clinical Communication Division of Perry Arana, Rheumatology in [facility], C.N.P. [place], [place] [address] [facility] [address] [place] [phone] Social History Tobacco Use Types Packs/Day Years [...] 1 to 4 times per year 09/01 restorationism services? Do you belong to any clubs [...] Cynthia Rockwell A PRN, C.N.P. [address] [place], [place] [phone] (Wo rk) documented as of this encounter Visit Diagnoses Not on filedocumented in this encounter Care Teams Compound Coating Machine Offbearer Relationship Specialty Start Date End Date Cynthia Rockwell APRN, C.N.P. PCP - General 08/16/[address] [place] [address] documented as of this encounter
--- OUTSIDE RECORDS SUMMARY | 2022-01-21 23:25 | XMS_ITS | Encounter Summary ---
:1955 Author Organization [facility] Address [address] [place] [address] Care Team Providers Name Role Phone Cynthia Rockwell APRN, C.N.P. Primary Care Provider Encounter Details Date Type Department Care Team Description 06/05/2017 Telemedicine Department of Rheumatology Social History Tobacco Use Types Packs/Day Years [...] Medicine Cynthia Rockwell A PRN, C.N.P. [address] [place] [phone] (Wo rk) documented as of this encounter Procedures Procedure Name Priority Date/Time Associated Comments Diagnosis RHEUMATOLOGY IMAGE Routine 06/05/2017 3:30 PM Res ults for this EXAM CDT procedure are i n the results section. documented in this encounter Results RHEUMATOLOGY IMAGE EXAM (06/05/2017 3:30 PM CDT) Specimen (Source) Anatomical Collection Method Collection Time Re ceived Time Location / / Volume Laterality 06/05/2017 3:30 PM CDT Narrative [facility] - 06/05/2017 3:39 PM CDT This order has been created [...] on filedocumented in this encounter Care Teams Junior Designer Relationship Specialty Start Date End Date Cynthia Rockwell, SOHAN, C.N.P. PCP - General 08/16/16 [address] [place] [phone] documented as of this encounter
--- OUTSIDE RECORDS SUMMARY | 2022-01-21 23:25 | XMS_ITS | Encounter Summary ---
:1955 Author Organization [facility] Address [address] [place] [address] Care Team Providers Name Role Phone Cynthia Rockwell APRN, C.N.P. Primary Care Provider [phone] Encounter Details Date Type Department Care Team Description 08/29/2017 Orders Only Department of Family Cynthia Rockwell, Hyp othyroidism Acquired Medicine, [place] SOHAN C.N.P. (Primary Dx) Clinic, in [place], [address] [place] [address] [place] [address] [place], [place] [phone] [address] (Work) [phone] Social History Tobacco Use Types Packs/Day Years [...] Medicine Cynthia Rockwell A PRN, C.N.P. [address] [phone] (Wo rk) documented as of this encounter Visit Diagnoses Diagnosis Hypothyroidism Acquired - Primary Japanese Language Deficit - Primary General Medical Examination Adult Hypothyroidism Acquired Arthritis Rheumatoid (HCC) High Risk Medication History Of Falling Encounter For COVID-19 Vaccine Immunizat ion Need Vaccine Immunization Influenza Encounter For Other Screening For Malign ant Neoplasm Of Breast documented in this encounter Care Teams Caster Helper Relationship Specialty Start Date End Date Cynthia Rockwell APRN, C.N.P. PCP - General 08/16/[address] [phone] documented as of this encounter
--- OUTSIDE RECORDS SUMMARY | 2022-01-21 23:25 | XMS_ITS | Encounter Summary ---
:1955 Author Organization [facility] Address [address] [place] [address] Care Team Providers Name Role Phone Cynthia Rockwell APRN, C.N.P. Primary Care Provider [phone] Reason for Visit Reason Comments Annual Exam Going to [facility]. Will u pdate Tdap and PCV13. Encounter Details Date Type Department Care Team Description 09/19/2017 Comprehensive Visit Department of Cynthia Rockwell V accine Immunization (Primary Dx); Family MedicineBrandon APRN, Fibromrylee a; [facility], C.N.P. Hypothyroidism Acquired; in [place], [address] Arthritis Rheu matoid (HCC); [facility] High Risk Medication; [address] [place], [place] Scre[place] [phone] Social History Tobacco Use Types Packs/Day Years [...] Sign Reading Time Taken Comments Blood Pressure 102/60 09/19/2017 2:14 PM CDT Pulse 64 09/19/2017 2:14 PM CDT Temperature 36.8 ??C (98.2 ??F) 09/19/2017 2:14 PM CDT Respiratory Rate 20 09/19/2017 2:14 PM CDT Oxygen Saturation - - Inhaled Oxygen Concentration - - Weight 70.9 kg (156 lb 6.7 oz) 09/19/2017 2:14 PM CDT Height 154 cm (5' 0.63) 09/19/2017 2:14 PM CDT Body Mass Index 29.92 09/19/2017 2:14 PM CDT documented in this encounter Patient Instructions AttachmentsThe following attachments cannot be sent through Care Everywhere. Arthritis: Caring for Your Joints (Jamaican)documented in this encounter H&P Notes Cynthia Rockwell, SOHAN, C.N.P. - 09/19/2017 2:00 PM CDT CHIEF COMPLAINT: Chief Complaint Patient presents with ??? Annual Exam Going to [facility]. Will update Tdap and PCV13. HISTORY OF PRESENT ILLNESS: Althea is here with her son for review of medical concerns, to review and refill medications and toupdate Preventive Services. She being seen with the assistance of [employer] Cardiac Cath Technologist. She will be traveling to [facility] for 20 days leaving October 10. She would like immunizations updated for travel. She is also due for labs for rheumatoid arthritis and high risk medication. She follows with Rheumatology at [facility] in [place]. She would like refill of acetaminophen. She has hypothyroidism, TSH was checked on August 29, stable at 4.1. MEDICATIONS: Current Outpatient Prescriptions: ??? acetaminophen (TYLENOL) 500 mg tablet, Take 2 tablets (1,000 mg total) by mouth every 8 (eight) hours as needed for moderate pain or score 4-6 of 10., Disp: 100 tablet, Rfl: 2 ??? ammonium lactate (for_AMLACTIN) 12 % cream, daily. , Disp: , Rfl: ??? calcium carbonate-vitamin D3 1,250 mg (500 mg calcium)-200 unit per tablet, Take 1 tablet by mouth daily with breakfast., Disp: 30 tablet, Rfl: 11 ??? chlorhexidine (PERIDEX) 0.12 % mouthwash, Swish and spit 2 (two) times a day., Disp: 473 mL, Rfl: 3 ??? diaper,brief,adult,disposable [...] by mouth daily., Disp: , Rfl: ??? leflunomide (ARAVA) 20 mg tablet, TAKE ONE TABLET BY MOUTH ONCE DAILY - CAN CAUSE PALPITATIONS, Disp: 30 tablet, Rfl: 6 ??? levothyroxine (LEVOXYL) 75 mcg tablet, Take 1 tablet (75 mcg total) by mouth daily., Disp: 90 tablet, Rfl: 3 ??? methotrexate 2.5 mg tablet, Take 8 tablets by mouth once a week. , Disp: , Rfl: ??? omeprazole (PriLOSEC) 20 mg capsule, Take 1 capsule (20 mg total) by mouth every morning before breakfast., Disp: 30 capsule, Rfl: 11 ??? predniSONE (for_DELTASONE) 5 mg tablet, Take by mouth daily., Disp: , Rfl: ALLERGIES: No Known Allergies REVIEW OF SYSTEMS: GENERAL: No weight gain, no weight loss, no fever in past month, no chills, no sweats, no fatigue EENT: No blurred vision, no double vision, no eye pain, no sinus problems, no hoarseness, no difficulty swallowing, no mouth sores, no diminished hearing, no ringing in ears, no enlarged glands PULMONARY: No shortness of breath, no cough, no wheezing, no sputum, no hemoptysis CARDIAC: No valve problems, no Chest pain, no Chest pressure, no rapid beating, no irregular beating, no dependent edema, pain in calves or with walking, no difficulty moving arms and legs GI: Heartburn, no nausea, no vomiting, no stomach trouble, no constipation, no diarrhea, no blood in BM, no change in BM BREAST: No lumps of breast, no nipple discharge, no pain in breast : No vaginal discharge, no burning/pain with urination, no difficulty starting stream, no difficulty emptying bladder, no excessive urination MUSCULOSKELETAL: Rheumatoid arthritis and fibromyalgia SKIN: No skin rashes, no skin sores, no change in moles NEURO: No significant headaches, no slurred speech, no seizures, no dizziness, no loss of consciousness, no memory loss ENDOCRINE: Hypothyroidism, no excessive thirst, no excessive bruising PAST MEDICAL HISTORY: Past Medical History: Diagnosis Date ??? Arthritis Rheumatoid (HCC) 12/14/2014 Arthritis Rheumatoid ??? DJD (OA) Knee NOS 07/30/2013 ??? Dyspepsia 08/30/2011 ??? Functional Incontinence Urinary 07/04/2017 ??? High Risk Medication 03/30/2015 ??? Hypothyroidism Acquired 01/19/2016 ??? Osteopenia 05/15/2009 ??? Primary Osteoarthritis Knee Bilateral 07/30/2013 PAST SURGICAL HISTORY: Past Surgical History: Procedure Laterality Date ??? NO PAST SURGERIES SOCIAL HISTORY: Social History Substance Use Topics ??? Smoking status: Never Smoker ??? Smokeless tobacco: Never Used ??? Alcohol use No FAMILY HISTORY: Family History Problem Relation Age of Onset ??? KAREN disease Brother VITALS: Temperature: [36.8 ??C] 36.8 ??C Resp Rate: [20] 20 Blood Pressure: (102)/(60) 102/60 Pulse Rate: [64] 64 LABS and DIAGNOSTICS: Results for orders placed or performed during the hospital encounter of 08/29/17 S-TSH (Thyroid-Stimulating Hormone - Sensitive) Result Value Ref Range TSH, Sensitive, S 4.1 0.3 - 4.2 mIU/L PHYSICAL EXAM: GENERAL: In general, the patient [...] reflexes are +2 and symmetrical. ASSESSMENT/PLAN: #1 Need Vaccine Immunization Immunizations given today include Td, hepatitis A, Pneumovax, Menactra, and typhoid. #2 Fibromyalgia Acetaminophen refill provided. #3 Hypothyroidism Acquired Continue levothyroxine 75 mcg daily. #4 Arthritis Rheumatoid (HCC) #5 High Risk Medication Continue to follow with Rheumatology at [facility] in [place]. Checking CBC creatinine and AST today. #6 Screening Cancer Colon Doing FIT for colon screen. HEALTH MAINTENANCE: Scheduling mammogram. documented in this encounter Plan of Treatment Upcoming Encounters Date Type Specialty Care Team Description 02/01/2022 Comprehensive Visit Family Medicine Cynthia Rockwell A PRN, C.N.P. [address] [phone] (Wo rk) documented as of this encounter Procedures Procedure Name Priority Date/Time Associated Comments Diagnosis CBC WITH DIFFERENTIAL, B Routine 09/19/2017 3:36 Arthritis Results for this PM CDT Rheumatoid (HCC) procedure are in High Risk the results Medication section. ASPARTATE Routine 09/19/2017 3:36 Arthritis Results for this AMINOTRANSFERASE (AST), PM CDT Rheumato id (HCC) procedure are in S/P High Risk the results Medication section. CREATININE WITH EGFR, Routine 09/19/2017 3:36 Arthritis Res ults for this S/P PM CDT Rheumatoid (HCC) procedure are in High Risk the results Medication section. documented in this encounter Results Fecal Occult Blood, Colorectal Cancer Screen, Qualitative, Immunochemical (10/03/2017 3:00 PM CDT) [facility] Method Time Signature Occult Blood, Negative Negative 10/04/2017 [facility] Fecal 8:44 AM CDT [facility]ATOR[facility] - [facility] Comment: Negative result. ??This test will not de tect upper gastrointestinal bleeding; the HemoQuant test (9220)should be ordered if clinically indicated. Specimen Anatomical Collection Method Collection Time Receive d Time (Source) Location / / Volume Laterality Stool (Stool) 10/03/2017 3:00 PM 10/05/19 18 7:51 CDT AM CDT Cynthia Rockwell APRN, C.N.P. LAB BODY FLUIDS AND STOOLS ORDERABLES Performing Organization Address City/[facility] Code Phon e Number [facility] LABORATORIES - [address] [place], [place] [address] [facility] (ABNORMAL) Creatinine with Estimated GFR (MDRD) (09/19/2017 3:36 PM CDT) Analysis Performed At [facility] logist Time Signature Creatinine 0.56 (L) 0.59 - 09/19/2017 [facility] 1.04 mg/dL 7:07 PM CDT [facility] [employer] LAB eGFR-Non >90 >=60 09/19/2017 [facility] Black/ mL/min/BSA 7:07 PM CDT [facility] Comment: ----ADDITIONAL INFORMATION---- Estimated GFR calculated using the 2009 CKD_EPI creatinine equation. eGFR-Black/ >90 >=60 mL/min/BSA 2017 7:07 PM [facility]- Standing [facility] LAB Comment: ----ADDITIONAL INFORMATION---- Estimated GFR calculated using the 2009 CKD_EPI creatinine equation. Specimen Anatomical Collection Method Collection Time Receive d Time (Source) Location / / Volume Laterality Blood (Blood, 09/19/2017 3:36 PM 09/20/19 18 6:41 Venous) CDT PM CDT Cynthia Rockwell APRN, C.N.P. LAB BLOOD ADD-ON Performing Organization Address City/[facility]/ZIP Code Phon e Number [facility] [employer] [address] [place] [address] LAB AST (Aspartate Aminotransferase) (09/19/2017 3:36 PM CDT) [facility] gist Method Time Signature Aspartate 27 8 - 43 09/19/2017 [facility] Aminotransferase U/L 6:59 PM CDT HEALTH (AST), S SYSTEM- [place] LAB Specimen Anatomical Collection Method Collection Time Receive d Time (Source) Location / / Volume Laterality Blood 09/19/2017 3:36 PM 8 6:40 CDT PM CDT Cynthia Rockwell APRN, C.N.P. LAB BLOOD ADD-ON Performing Organization Address City/State/ZIP Code Phon e Number [facility] [address], [place] [address] LAB CBC with Differential (09/19/2017 3:36 PM CDT) P athologist Signature Hemoglobin 12.4 11.6 - 09/19/2017 [facility] 15.0 g/dL 4:16 PM CDT [facility] Hematocrit 37.7 35.5 - 09/19/2017 [facility] 44.9 % 4:16 PM CDT [facility] Erythrocytes 4.17 3.92 - 09/19/2017 [facility] 5.13 4:16 PM CDT HEALTH x10(12)/L [facility] MCV 90.4 78.2 - 09/19/2017 [facility] 97.9 fL 4:16 PM CDT [facility] RBC Distrib Width 14.9 12.2 - 09/19/2017 [facility] 16.1 % 4:16 PM CDT [facility] Platelet Count 217 157 - 371 09/19/2017 [facility] x10(9)/L 4:16 PM CDT [facility] Leukocytes 4.2 3.4 - 9.6 09/19/2017 [facility] x10(9)/L 4:16 PM CDT [facility] Neutrophils 2.52 1.56 - 09/19/2017 [facility] 6.45 4:16 PM CDT HEALTH x10(9)/L [facility] Lymphocytes 1.08 0.95 - 09/19/2017 [facility] 3.07 4:16 PM CDT HEALTH x10(9)/L [facility]- [facility] Monocytes 0.46 0.26 - 09/19/2017 [facility] 0.81 4:16 PM CDT HEALTH x10(9)/L [facility]- [facility] Eosinophils 0.13 0.03 - 09/19/2017 [facility] 0.48 4:16 PM CDT HEALTH x10(9)/L [facility]- [place] [facility] Basophils 0.01 0.01 - 09/19/2017 [facility] 0.08 4:16 PM CDT HEALTH x10(9)/L [facility]- [place] [facility] Specimen Anatomical Collection Method Collection Time Receive d Time (Source) Location / / Volume Laterality Blood (Blood, 09/19/2017 3:36 PM 09/20/19 18 3:37 Venous) CDT PM CDT Cynthia Rockwell APRN, C.N.P. LAB BLOOD ADD-ON Performing Organization Address City/State/ZIP Code Phon e Number [facility]- [address] [place] [address] [place] [facility]- [address] [place], [place] [address] [facility] documented in this encounter Visit Diagnoses Diagnosis Need Vaccine Immunization - Primary Fibromyalgia Hypothyroidism Acquired Arthritis Rheumatoid (HCC) High Risk Medication Screening Cancer Colon Jamaican Language Deficit - Primary General Medical Examination Adult Hypothyroidism Acquired Arthritis Rheumatoid (HCC) High Risk Medication History Of Falling Encounter For COVID-19 Vaccine Immunizat ion Need Vaccine Immunization Influenza Encounter For Other Screening For Malign ant Neoplasm Of Breast documented in this encounter Care Teams Associate Media Director Relationship Specialty Start Date End Date Cynthia Rockwell APRN, C.N.P. PCP - General 08/16/16 [address], [place] [phone] documented as of this encounter
--- OUTSIDE RECORDS SUMMARY | 2022-01-21 23:25 | XMS_ITS | Encounter Summary ---
:1955 Author Organization [facility] Address [address] [place] [address] Care Team Providers Name Role Phone Tin Schmidt APRN, C.N.P. Primary Care Provider [phone] Reason for Visit Reason Comments Med Refill Encounter Details Date Type Department Care Team Description 09/20/2017 Refill Department of Family Medicine, Christi Schmidt APRN, Med Refill [facility], in [place], [place] [address] [place] [address] [place], [place] [phone] Social History Tobacco Use Types Packs/Day Years [...] documented as of this encounter Miscellaneous Notes Addendum Note - Tin Schmidt APRN C.N.[place] - 09/21/2017 10:09 AM CDT Addended by: TIN SCHMIDT on: 09/21/2017 10:09 AM Modules accepted: Orders Telephone Encounter - Sofi Orantes RDN, LD - 09/20/2017 7:44 AM CDT Images from the original note were not included. Nurse Review: Pharmacy Communication Provider: Tin Schmidt APRN, C.NCarmen documented in this encounter Plan of Treatment Upcoming Encounters Date Type Specialty Care Team Description 02/01/2022 Comprehensive Visit Family Medicine Tin Schmidt A PRN C.N.P. [address] [place], [place] [phone] (Wo rk) documented as of this encounter Visit Diagnoses Not on filedocumented in this encounter Care Teams Lift Team Technician Relationship Specialty Start Date End Date Tin Schmidt APRN, C.N.P. PCP - General 08/16/16 [address] [phone] documented as of this encounter
--- OUTSIDE RECORDS SUMMARY | 2022-01-21 23:25 | XMS_ITS | Encounter Summary ---
:1955 Author Organization [facility] Address [address] [place] [address] Care Team Providers Name Role Phone Cynthia Rockwell APRN, C.N.P. Primary Care Provider [phone] Encounter Details Date Type Department Care Team Description 04/15/2017 Hospital Encounter HX NO MAPPING Social History [...] Cynthia Rockwell A PRN, C.N.P. [address] [place], [place] [phone] (Wo rk) documented as of this encounter Visit Diagnoses Not on filedocumented in this encounter Care Teams Public Health Teacher Relationship Specialty Start Date End Date Cynthia Rockwell SAND MILL OPERATOR FACING SAND, C.N.P. PCP - General 08/16/16 [address], [place] [phone] documented as of this encounter
--- OUTSIDE RECORDS SUMMARY | 2022-01-21 23:25 | XMS_ITS | Encounter Summary ---
:1955 Author Organization [facility] Address [address] [place] [address] Care Team Providers Name Role Phone Cynthia Rockwell APRN, C.N.P. Primary Care Provider [phone] Encounter Details Date Type Department Care Team Description 08/23/2017 Orders Only [facility], [address] [place] [facility] [place] [address] [place] [address] [place] [address] Social History Tobacco Use Types Packs/Day [...] Team Description 02/01/2022 Comprehensive Visit Family Medicine Cynthai Rockwell A PRN, C.N.P. [address] [place], [place] [phone] (Wo rk) documented as of this encounter Visit Diagnoses Not on filedocumented in this encounter Care Teams Power Reactor Supervisor Relationship Specialty Start Date End Date Cynthia Rockwell APRN, C.N.P. PCP - General 08/16/[address] [place] [address] documented as of this encounter
--- OUTSIDE RECORDS SUMMARY | 2022-01-21 23:25 | XMS_ITS | Encounter Summary ---
:1955 Author Organization [facility] Address [address] [place] [address] Care Team Providers Name Role Phone Cynthia Rockwell APRN, C.N.P. Primary Care Provider Encounter Details Date Type Department Care Team Description 08/10/2017 Abstract DATA ABSTRACTION Provider, Historical Social History Tobacco Use Types Packs/Day Years [...] Medicine Cynthia Rockwell A PRN, C.N.P. [address] [place] [phone] (Wo rk) documented as of this encounter Visit Diagnoses Not on filedocumented in this encounter Care Teams Receipt And Report Clerk Relationship Specialty Start Date End Date Cynthia Rockwell, SOHAN, C.N.P. PCP - General 08/16/16 [address] [place] [phone] documented as of this encounter
--- OUTSIDE RECORDS SUMMARY | 2022-01-21 23:25 | XMS_ITS | Encounter Summary ---
:1955 Author Organization [facility] Address [address] [place] [address] Care Team Providers Name Role Phone Cynthia Rockwell APRN, C.N.P. Primary Care Provider [phone] Encounter Details Date Type Department Care Team Description 08/29/2017 Hospital Encounter Department of Cynthia Rockwell Laboratory Medicine SOHAN Taylor, C.N .[place] Acquired in [facility] [address] [address] [place], [place] [phone] [address] (Work) [phone] Social History Tobacco Use Types Packs/Day Years [...] Date acetaminophen Take 2 tablets by 0 03/15/201508/03 (for_TYLENOL) 325 mg mouth every 4 (four) tablet hours as needed. ammonium lactate daily. 0 12/17/2016 11/15/19 18 (for_AMLACTIN) 12 % cream CALCIUM CARB/VIT Take by mouth 2 (two) 0 06/27/19 12 08/30/2017 D3/MINERALS times a day. (CALCIUM-VITAMIN D ORAL) chlorhexidine 2 (two) times a day. 0 02/12/2017 0 09/19/2017 (for_PERIDEX) 0.12 % mouthwash diaper,brief,adult,dispo One brief 3 times 90 each 05/201706/19/2018 sable (ADULT BRIEFS - daily as needed for LARGE) miscIndications: urinary incontinence. Functional Incontinence Urinary docusate sodium (COLACE) Take 1 capsule by 0 06/0305/15/2021 100 mg capsule mouth 2 (two) times a day. DULoxetine Take 60 mg by mouth 0 01/04/201708/30 (for_CYMBALTA) [address] daily. capsule folic acid 1 mg tablet Take 1 tablet by 0 012 11/14/2017 mouth daily. gabapentin Take 1 capsule by 0 07/04/2016 018 (for_NEURONTIN) 300 mg mouth at bedtime. capsule leflunomide (ARAVA) 20 TAKE ONE TABLET BY 30 tablet 6 08/0811/14/2017 mg tablet MOUTH ONCE DAILY - CAN CAUSE PALPITATIONS levothyroxine (LEVOXYL) Take 1 tablet (75 mcg 90 tablet 1 0 06/20/2017 08/30/2017 75 mcg total) by mouth tabletIndications: daily. Hypothyroidism Acquired methotrexate 2.5 mg Take 8 tablets by 0 0 11/14/2017 tablet mouth once a week. predniSONE Take by mouth daily. 0 10/09/201111/02 (for_DELTASONE) 5 mg tablet documented as of this encounter Plan of Treatment Upcoming Encounters Date Type Specialty Care Team Description 02/01/2022 Comprehensive Visit Family Medicine Cynthia Rockwell A PRN, C.N.P. [address] [place], [place] [phone] (Wo rk) documented as of this encounter Procedures Procedure Name Priority Date/Time Associated Diagnosis Comme nts THYROID-STIMULATIN Routine 08/29/2017 2:08 PM Hypothyroidism A cquired Results for this G CDT procedure are i n HORMONE-SENSITIVE the result s (S-TSH) section. documented in this encounter Results S-TSH (Thyroid-Stimulating Hormone - Sensitive) (08/29/2017 2:08 PM CDT) athologist Signature TSH, Sensitive 4.1 0.3 - 4.2 08/29/2017 [facility] mIU/L 4:17 PM CDT [facility] Comment: Biotin has been identified by the [facility] as a potential interfering substance. ??Higher concentr ations of biotin may be found in multivitamins, hair/nail supple ments, and workout supplements. ??If the result does not ma [facility] clinical observations, repeat testing after patient refrains fr om the use of supplements for at least 12 hours. Specimen Anatomical Collection Method Collection Time Receive d Time (Source) Location / / Volume Laterality Blood 08/29/2017 2:08 PM 8 3:47 CDT PM CDT Cynthia Rockwell APRN, C.N.P. LAB BLOOD ADD-ON Performing Organization Address City/State/ZIP Code Phon e Number [facility] [address], [place] [address] LAB documented in this encounter Visit Diagnoses Diagnosis Hypothyroidism Acquired Polish Language Deficit - Primary General Medical Examination Adult Hypothyroidism Acquired Arthritis Rheumatoid (HCC) High Risk Medication History Of Falling Encounter For COVID-19 Vaccine Immunizat ion Need Vaccine Immunization Influenza Encounter For Other Screening For Malign ant Neoplasm Of Breast documented in this encounter Care Teams Conveyor Technician Relationship Specialty Start Date End Date Cynthia Rockwell APRN, C.N.P. PCP - General 08/16/162199 [address] [phone] documented as of this encounter
--- OUTSIDE RECORDS SUMMARY | 2022-01-21 23:26 | XMS_ITS | Encounter Summary ---
:1955 Author Organization [facility] Address [address] [place] [address] Care Team Providers Name Role Phone Cynthia Rockwell APRN C.N.[place] Primary Care Provider [phone] Encounter Details Date Type Department Care Team Description 01/04/2017 Orders Only Department of Family Jovany Miller M.D. Pain Unspecified Medicine, [place] [address] [facility], in [facility] [phone] [place] [address] [place] [address] [phone] Social History Tobacco Use Types Packs/Day Years Used Date Smoking Tobacco: Never Alcohol Habits Answer Date Recorded How often [...] Team Description 02/01/2022 Comprehensive Visit Family Medicine Myrom, Cynthia J, A PRN, C.N.P. [address] [place], [place] [phone] (Wo rk) documented as of this encounter Visit Diagnoses Diagnosis Pain Unspecified Venezuelan Language Deficit - Primary General Medical Examination Adult Hypothyroidism Acquired Arthritis Rheumatoid (HCC) High Risk Medication History Of Falling Encounter For COVID-19 Vaccine Immunizat ion Need Vaccine Immunization Influenza Encounter For Other Screening For Malign ant Neoplasm Of Breast documented in this encounter Care Teams Tool Smith Relationship Specialty Start Date End Date Cynthia Rockwell APRN, C.N.P. PCP - General 08/16/16 [address] [address] documented as of this encounter
--- OUTSIDE RECORDS SUMMARY | 2022-01-21 23:26 | XMS_ITS | Encounter Summary ---
:1955 Author Organization [facility] Address [address] [place] [address] Care Team Providers Name Role Phone Unavailable Primary Care Provider Unavailable Encounter Details Date Type Department Care Team Description 12/30/2015 Hospital Encounter HX [facility] Dennise Shaw M.D. [address] [place], [place] [phone] (Wo rk) Social History Tobacco Use Types [...] - Inhaled Oxygen Concentration - - Weight - - Height 158 cm (5' 2.21) 12/30/2015 9:18 AM CDT Body Mass Index - - documented in this encounter Medications at Time of Discharge Medication Sig Dispensed Refills Start Date End Date acetaminophen Take 2 tablets by 0 03/15/201508/03 (for_TYLENOL) 325 mg mouth every 4 tablet (four) hours as needed. CALCIUM CARB/VIT Take by mouth 2 0 06/27/2011 D3/MINERALS (two) times a day. (CALCIUM-VITAMIN D ORAL) docusate sodium (COLACE) Take 1 capsule by 0 06/0305/15/2021 100 mg capsule mouth 2 (two) times a day. folic acid 1 mg tablet Take 1 tablet by 0 012 11/14/2017 mouth daily. leflunomide (ARAVA) 20 mg Take 1 tablet [...] Medicine Cynthia Rockwell, Kuldip PRN, C.N.P. [address] [phone] (Wo rk) documented as of this encounter Procedures Procedure Name Priority Date/Time Associated Comments Diagnosis AUTOMATED DIFFERENTIAL, Routine 12/30/2015 9:25 R esults for this B AM CDT procedure are i n the results section. CBC WITH DIFFERENTIAL, B Routine 12/30/2015 9:25 Results for this AM CDT procedure are i n the results section. ASPARTATE Routine 12/30/2015 9:25 Results for this AMINOTRANSFERASE (AST), AM CDT proc edure are in S/P the results section. CREATININE WITH EGFR, Routine 12/30/2015 9:25 Res ults for this S/P AM CDT procedure are i n the results section. documented in this encounter Results (ABNORMAL) Automated Differential (12/30/2015 9:25 AM CDT) Patholo gist Method Time Signature Absolute 1.08 (L) 1.70 - POWERCHART Neutrophils 7.00 109L Lymphocytes 1.22 0.90 - POWERCHART 2.90 X109L Monocytes 0.33 0.30 - POWERCHART 0.90 X109L Eosinophils 0.12 0.05 - POWERCHART 0.50 X109L Absolute 0.01 0.00 - POWERCHART Basophil 0.30 X109L Specimen Anatomical Collection Method Collection Time Receive d Time (Source) Location / / Volume Laterality Blood 12/30/2015 9:25 AM 6 9:25 CDT AM CDT Perry Arana APRN, C.N.P. LAB BLOOD ADD-ON Performing Organization Address City/State/ZIP Code Phon e Number POWERCHART (ABNORMAL) CBC with Differential (12/30/2015 9:25 AM CDT) P athologist Signature Leukocytes 2.8 (L) 3.4 - 10.5 POWERCHART X109L Erythrocytes 4.10 3.90 - POWERCHART 5.03 [id number] Hemoglobin 12.2 12.0 - POWERCHART 15.5 GDL Hematocrit 37.1 34.9 - POWERCHART 44.5 MCV 90.5 82.0 - POWERCHART 98.0 FL HX RDW 14.3 11.9 - POWERCHART 15.5 Platelet Count 232 150 - 450 POWERCHART X109L Specimen (Source) Anatomical Collection Method Collection Time Re ceived Time Location / / Volume Laterality Blood 12/30/2015 9:25 AM CDT Perry Arana APRN, C.N.P. LAB BLOOD ADD-ON Performing Organization Address City/State/ZIP Code Phon e Number POWERCHART Creatinine with eGFR (12/30/2015 9:25 AM CDT) P athologist Signature Creatinine 0.70 0.60 - POWERCHART 1.10 MGDL HXeGFR (MDRD) >60 >=60 POWERCHART [id number] eGFR >60 >=60 POWERCHART Black/ [id number] Martiniquais Specimen (Source) Anatomical Collection Method Collection Time Re ceived Time Location / / Volume Laterality Blood 12/30/2015 9:25 AM CDT Perry Arana APRN, C.N.P. LAB BLOOD ADD-ON Performing Organization Address City/[facility]/ZIP Code Phon e Number POWERCHART AST (Aspartate Aminotransferase) (12/30/2015 9:25 AM CDT) [facility] gist Method Time Signature Aspartate 18 8 - 43 POWERCHART Aminotransferase UNITL (AST), S Specimen (Source) Anatomical Collection Method Collection Time Re ceived Time Location / / Volume Laterality Blood 12/30/2015 9:25 AM CDT Perry Arana APRN, C.N.P. LAB BLOOD ADD-ON Performing Organization Address City/State/[facility] Phon e Number POWERCHART documented in this encounter Visit Diagnoses Not on filedocumented in this encounter
--- OUTSIDE RECORDS SUMMARY | 2022-01-21 23:26 | XMS_ITS | Encounter Summary ---
:1955 Author Organization [facility] Address [address] [place] [address] Care Team Providers Name Role Phone Unavailable Primary Care Provider Unavailable Encounter Details Date Type Department Care Team Description 03/07/2016 Hospital Encounter HX [facility] Cynthia Rockwell A PRN, C.N.P. [address] [place], [place] [phone] (Wo rk) Social History [...] - - Height 158 cm (5' 2.21) 03/07/2016 1:49 PM TAKE UP SUPERVISOR Body Mass Index - - documented in [...] Medicine Cynthia Rockwell, Kuldip PRN, C.N.P. [address] [phone] (Wo rk) documented as of this encounter Procedures Procedure Name Priority Date/Time Associated Comments Diagnosis AUTOMATED DIFFERENTIAL, Routine 03/07/2016 2:00 R esults for this B PM TAKE UP SUPERVISOR procedure are i n the results section. CBC WITH DIFFERENTIAL, B Routine 03/07/2016 2:00 Results for this PM TAKE UP SUPERVISOR procedure are i n the results section. ASPARTATE Routine 03/07/2016 2:00 Results for this AMINOTRANSFERASE (AST), PM TAKE UP SUPERVISOR proc edure are in S/P the results section. CREATININE WITH EGFR, Routine 03/07/2016 2:00 Res ults for this S/P PM TAKE UP SUPERVISOR procedure are i n the results section. documented in this encounter Results Automated Differential (03/07/2016 2:00 PM TAKE UP SUPERVISOR) athologist Signature Absolute 2.36 1.70 - POWERCHART Neutrophils 7.00 109L Lymphocytes 0.91 0.90 - POWERCHART 2.90 X109L Monocytes 0.42 0.30 - POWERCHART 0.90 X109L Eosinophils 0.07 0.05 - POWERCHART 0.50 X109L Absolute 0.01 0.00 - POWERCHART Basophil 0.30 X109L Specimen Anatomical Collection Method Collection Time Receive d Time (Source) Location / / Volume Laterality Blood 03/07/2016 2:00 PM 7 2:00 TAKE UP SUPERVISOR PM TAKE UP SUPERVISOR Cynthia Rockwell APRN, C.N.P. LAB BLOOD ADD-ON Performing Organization Address City/State/ZIP Code Phon e Number POWERCHART CBC with Differential (03/07/2016 2:00 PM TAKE UP SUPERVISOR) P athologist Signature Leukocytes 3.8 3.4 - 10.5 POWERCHART X109L Erythrocytes 4.41 3.90 - 5.03 POWERCHART [id number] Hemoglobin 12.8 12.0 - 15.5 POWERCHART GDL Hematocrit 39.7 34.9 - 44.5 POWERCHART MCV 90.0 82.0 - 98.0 POWERCHART FL HX RDW 13.8 11.9 - 15.5 POWERCHART Platelet Count 223 150 - 450 POWERCHART X109L Specimen (Source) Anatomical Collection Method Collection Time Re ceived Time Location / / Volume Laterality Blood 03/07/2016 2:00 PM TAKE UP SUPERVISOR Cynthia Rockwlel APRN, C.N.P. LAB BLOOD ADD-ON Performing Organization Address City/State/ZIP Code Phon e Number POWERCHART AST (Aspartate Aminotransferase) (03/07/2016 2:00 PM TAKE UP SUPERVISOR) Patholo gist Method Time Signature Aspartate 17 8 - 43 POWERCHART Aminotransferase UNITL (AST), S Specimen (Source) Anatomical Collection Method Collection Time Re ceived Time Location / / Volume Laterality Blood 03/07/2016 2:00 PM TAKE UP SUPERVISOR Cynthia Rockwell APRN, C.N.P. LAB BLOOD ADD-ON Performing Organization Address City/State/ZIP Code Phon e Number POWERCHART (ABNORMAL) Creatinine with eGFR (03/07/2016 2:00 PM TAKE UP SUPERVISOR) Analysis Performed At Patho logist Time Signature Creatinine 0.59 (L) 0.60 - POWERCHART 1.10 MGDL HXeGFR (MDRD) >60 >=60 POWERCHART [id number] eGFR >60 >=60 POWERCHART Black/ [id number] Portuguese Specimen (Source) Anatomical Collection Method Collection Time Re ceived Time Location / / Volume Laterality Blood 03/07/2016 2:00 PM TAKE UP SUPERVISOR Cynthia Rockwell APRN, C.N.P. LAB BLOOD ADD-ON Performing Organization Address City/State/ZIP Code Phon e Number POWERCHART documented in this encounter Visit Diagnoses Not on filedocumented in this encounter
--- OUTSIDE RECORDS SUMMARY | 2022-01-21 23:26 | XMS_ITS | Encounter Summary ---
:[address] [facility] Address [address] [place] [address] Care Team Providers Name Role Phone Tin Schmidt APRN, C.N.P. Primary Care Provider [phone] Encounter Details Date Type Department Care Team Description 01/04/2017 Hospital Encounter HX [facility] FAMILYPRA Bright Miller M.D. [address] [place], [place] [phone] (Wo rk) Social History [...] Sign Reading Time Taken Comments Blood Pressure 114/60 01/04/2017 2:48 PM CDT Pulse 60 01/04/2017 2:48 PM CDT Temperature - - Respiratory Rate 16 01/04/2017 2:48 PM CDT Oxygen Saturation - - Inhaled Oxygen Concentration - - Weight 73.1 kg (161 lb 0.7 oz) 01/04/2017 2:48 PM CDT Height 158 cm (5' 2.21) 01/04/2017 2:48 PM CDT Body Mass Index 29.26 01/04/2017 2:48 PM CDT documented in this encounter Medications at [...] tablet daily. documented as of this encounter Progress Notes Bright Miller M.D. - 01/04/2017 3:39 PM CDT Chronic musculoskeletal pain CHIEF COMPLAINT/REASON FOR VISIT headaches for past week, body aches, would also like flu shot HISTORY OF PRESENT ILLNESS Althea Arias is a 61 years old with past medical history of rheumatoid arthritis and hypothyroidism who presents with generalized muscle pain for the past 6 months. Reports she has pain all over herbody and makes it difficult for her to sleep at night and do activities at home. She was seen by rheumatology this Saturday. She is currently taking methotrexate 12.5 weekly, leflunomide 20 mg daily and prednisone 1 1/2 tablets daily fro rheumatoid arthritis. She has been feeling pain all over her body. She has been taking Tylenol and gabapentin 300 mg at bedtime with mild relief. She feels her muscle is aching all over her body. She has joint pain in her wrist and elbow. She had steroid injection in her elbow recently. She feels pain with even light touch. MEDICATIONS acetaminophen 325 mg oral tablet, 650 mg, 2 tab(s), PO, q4hr, PRN, 1 refills Arava 20 mg oral tablet, 20 mg, 1 tab(s), PO, Daily Calcium 600+D, 1 tab, PO, 2xDay folic acid 1 mg oral tablet, 1 mg, 1 tab(s), PO, Daily gabapentin 300 mg oral capsule, 300 mg, 1 cap(s), PO, Bedtime Levoxyl 75 mcg (0.075 mg) oral tablet, 75 mcg, 1 tab(s), PO, Daily, 0 refills methotrexate 2.5 mg oral tablet, 12.5 mg, 5 tab(s), on Saturday night, PO, Weekly predniSONE 5 mg oral tablet, 1 1/2 tab(s), PO, Daily ALLERGIES NKA PAST MEDICAL HISTORY Chronic Arthritis Rheumatoid Arthritis, degenerative, lower leg/knee Combined cataracts Constipation, Unspecified Dyspepsia NOS Fx Vertebra Compression Lumbar Closed Subsequent High Risk Medication Hypothyroidism Acquired Osteopenia Historical Malaria NOS Tuberculosis converter PROCEDURES/SURGICAL HISTORY CT of lumbar spine (06/27/2014), Mammogram (10/09/2011), DEXA - Dual energy X-ray photon absorptiometry (06/27/2011), Bone density scan (03/20/2007), Lipid level (08/08/2006), Cytopathology, cervical or vaginal (any reporting system), collected in preservative fluid, automated thin layer preparation; manual screening under physician supervision.. (05/29/2006), Pap smear (05/29/2006). SOCIAL HISTORY Date Time: 01/04/2017 14:49 Tobacco: Smoking Status: Never smoker Exposure: Other: never Alcohol: Use: No Results Found Recreational Drugs: Use: None Type: No Results Found FAMILY HISTORY Sister: Negative: Brother: Negative: Brother:Positive: GERD - Gastro-esophageal reflux disease SYSTEMS REVIEW CONSTITUTIONAL:NEGATIVE for fever, chills, change in weight INTEGUMENTARY/SKIN: NEGATIVE for worrisome rashes, moles or lesions MUSCULOSKELETAL:See HPI above NEURO: NEGATIVE for weakness, dizziness or paresthesias VITAL SIGNS T: 36.2 ??C (Core) HR: 60 RR: 16 BP: 114 / 60 HT: 158 cm WT: 73.05 kg BMI: 29.26 PHYSICAL EXAMINATION GENERAL APPEARANCE: healthy, alert and no distress GAIT: NORMAL SKIN: no suspicious lesions or rashes NEURO: Normal strength and tone, mentation intact and speech normal PSYCH: mentation appears normal and affect normal/bright MSK: Tender to touch at upper mid-trapezius muscle LAB RESULTS None DIAGNOSTIC RESULTS None IMPRESSION/REPORT/PLAN 1. Pain Musculoskeletal Widespread Chronic Comments: Will start Duloxetine 30 mg once daily to help with her symptoms. Encouraged to do aerobic exercise for least 150 minutes per week to help with her pain . Follow up in 2 weeks. Ordered: DULoxetine, 30 mg = 1 cap(s), PO, Daily, # 30 cap(s), 1 Refill(s), Maintenance, [facility] [id number] OV Est Pt Level 4 - [address] - 25 min 2. Arthritis Rheumatoid (RA) -Continue methotrexate, Leflunomide and prednisone. Patient reports that her Rheumatology wants herto start biologics injection and patient is not sure. Reviewed with the patient that biologics injection are shown to be effective. Patient would like to be off prednisone in the near future. Discussedthat it is not recommended to abruptly stopped prednisone. Ordered: OV Est Pt Level 4 - 63106 - 25 min 3. Immunization Only Flu given today. Ordered: influenza virus vaccine QUAD, inactivated (Influenza virus vaccine, inactive, 3 yrs, PF) charge OV Est Pt Level 4 - 95680 - 25 min Orders: influenza virus vaccine, inactivated, 0.5 mL, IM, Once, 01/04/17 14:54:00 CDT Return Visit [facility] 30 Min Electronically Signed By: BRIGHT MILLER MD On: 01/04/2017 03:48 PM Source: [employer] POWERCHART Document Id: [id number] documented in this encounter Nursing Notes Bright Miller M.D. - 01/04/2017 3:30 PM CDT Ambulatory Patient Education The following Patient Education Materials have been given to the patient: Patient Education Materials: Ambulatory CHRONIC PAIN Ambulatory Chronic Pain Pain of recent onset (acute pain) serves an important function. It lets you know something is wrong that needs your attention. When the body heals, acute pain goes away. When pain lasts longer than six months, it is called chronic pain. It may be present even after the body has healed. Chronic pain has both a physical and a psychological component. It may cause low self-esteem, depression and irritability. And, it can interfere with daily activities. Treatment: Chronic pain is treated with a combination of medicines, therapy and lifestyle changes. Medicines may include pain relievers and antidepressants. It is best not to rely on regular use of narcotics for chronic pain. This leads to physical addiction. If narcotics are used at all, they are best limited to acute, breakthrough pain. Medicines used for seizures also help in certain types of chronic pain. Physical Therapy can offer stretching and strengthening activities as well as low-impact exercise. This can reduce certain types of chronic pain. Occupational Therapy teaches you how to do routine tasks of daily living in ways that minimize your discomfort. Psychological Therapy can help you deal with the stress in your life so you feel more at ease. Other Modalities such as meditation, yoga, biofeedback, massage and acupuncture can also help managechronic pain. Lifestyle Habits can affect chronic pain. The following should be part of any chronic pain treatmentplan. ?? Eat healthy ?? Develop an exercise routine ?? Get enough sleep at night ?? Stop smoking and limit alcohol use ?? Start a weight loss program if you are overweight Many patients can be free from chronic pain. But at the very least, you should expect your pain to become less severe, occur less often and interfere less with your daily life. Follow Up with your doctor or as advised by our staff. Let your doctor know if your current treatment plan is successful or if changes are needed. Resources: Citizen Of The [place] [employer] for Headache Society www.achenet.org Citizen Of [place] Chronic Pain Association www.theacpa.org 116-568-2202 ?? Debbie Rodriguez, [address] [place] [address], [place] [address]. All rights reserved. This information is not intended as a substitute for professional medical care. Always follow your healthcare professional's instructions. Source: [facility] POWERCHART Document Id: [id number] documented in this encounter Miscellaneous Notes Miscellaneous - Bright Miller M.D. - 01/04/2017 3:30 PM CDT Ambulatory Patient Summary [address] [id number] Visit Information Name: ARIASALTHEA GARZA Kuldip [facility] Number: [id number] Current Date: 01/04/2017 15:30:38 Physicians Attending Provider: BRIGHT MILLER MD Primary Care Provider: TIN SCHMIDT APRN PRESS OPERATOR APPRENTICE ARIASALTHEA GARZA Kuldip has been given the following list of follow-up instructions, medication list, andpatient education materials: Follow-up Instructions With: Address: When: Follow up with primary care provider , only if needed Comments: If symptoms worsen. Your Medications Here is a list of your medications. It is important to take your medications as directed. Use a pillbox or chart to help remind you to take your medications. Please let your doctor or nurse know if you have problems taking your medications. Medication/Strength How to Take Indications/Special Instructions/Comments/Notes for Patient Medication Changes/Routing acetaminophen (acetaminophen 325 mg oral tablet) 2 Tablet(s), Oral, every 4 hours as needed for pain calcium-vitamin D (Calcium 600+D) 1 tab, Oral, two times a day DULoxetine (DULoxetine 30 mg oral delayed release capsule) 1 cap, Oral, once a day New Routed to [address] [address] folic acid (folic acid 1 mg oral tablet) 1 Tablet(s), Oral, once a day gabapentin (gabapentin 300 mg oral capsule) 1 cap, Oral, once a day (at bedtime) leflunomide (Arava 20 mg oral tablet) 1 Tablet(s), Oral, once a day levothyroxine (Levoxyl 75 mcg (0.075 mg) oral tablet) 1 Tablet(s), Oral, once a day methotrexate (methotrexate 2.5 mg oral tablet) 5 Tablet(s), Oral, every week on Saturday night predniSONE (predniSONE 5 mg oral tablet) 1 1/2 tab(s), Oral, once a day Stop Taking the Following Medications: Medication list as of 01-04-17 15:30 Attention: If you have any medications at home that are not on this list, DO NOT take them until youcontact your provider for clarification. Give a copy of your medication list to your primary care provider. Update your medication list any time medications or doses are changed and carry your medication list at all times in case of emergency. Electronically Signed By: BRIGHT MILLER MD Signed On:04-JAN-2017 15:28:33 Your Allergies & Intolerances Substance Reaction Symptoms Category Comments No Known Allergies Drug Your Problem List Problem Status Onset Comments Constipation, Unspecified Active Osteopenia Active Arthritis, degenerative, lower leg/knee Active Dyspepsia NOS Active Arthritis Rheumatoid Active Fx Vertebra Compression Lumbar Closed Subsequent Active Combined cataracts Active 10/06/2010 High Risk Medication Active Hypothyroidism Acquired Active Your Upcoming Appointments Date Time Location Provider No Appointments found Attention: Contact your local Clinic if further appointment detail needed. Chronic Pain Pain of recent onset (acute pain) serves an important function. It lets you know something is wrong that needs your attention. When the body heals, acute pain goes away. When pain lasts longer than six months, it is called chronic pain. It may be present even after the body has healed. Chronic pain has both a physical and a psychological component. It may cause low self-esteem, depression and irritability. And, it can interfere with daily activities. Treatment: Chronic pain is treated with a combination of medicines, therapy and lifestyle changes. Medicines may include pain relievers and antidepressants. It is best not to rely on regular use of narcotics for chronic pain. This leads to physical addiction. If narcotics are used at all, they are best limited to acute, breakthrough pain. Medicines used for seizures also help in certain types of chronic pain. Physical Therapy can offer stretching and strengthening activities as well as low-impact exercise. This can reduce certain types of chronic pain. Occupational Therapy teaches you how to do routine tasks of daily living in ways that minimize your discomfort. Psychological Therapy can help you deal with the stress in your life so you feel more at ease. Other Modalities such as meditation, yoga, biofeedback, massage and acupuncture can also help managechronic pain. Lifestyle Habits can affect chronic pain. The following should be part of any chronic pain treatmentplan. ?? Eat healthy ?? Develop an exercise routine ?? Get enough sleep at night ?? Stop smoking and limit alcohol use ?? Start a weight loss program if you are overweight Many patients can be free from chronic pain. But at the very least, you should expect your pain to become less severe, occur less often and interfere less with your daily life. Follow Up with your doctor or as advised by our staff. Let your doctor know if your current treatment plan is successful or if changes are needed. Resources: Citizen Of [place] [employer] for Headache Society www.achenet.org Citizen Of [place] Chronic Pain Association www.theacpa.org 820-328-5104 ?? [place] [address]. All rights reserved. This information is not intended as a substitute for professional medical care. Always follow your healthcare professional's instructions. Consider Using Patient Online Services Patient Online Services is a secure online and Mobile application that lets you: ?? View lab and test results ?? View portions of your medical record including clinical notes, immunizations and discharge summaries ?? Request an appointment or medication refill ?? Review your appointment schedule ?? Send secure messages to your care team Its easy to create an account if you dont have one. Go to [email or web address] and click on Create Your Account. Then, follow the directions to complete the online form. Youll be asked for your [facility] number which you can find at the top of this document. Your Goals/Additional instructions: Source: [facility] POWERCHART Document Id: [id number] Miscellaneous - Bright Miller M.D. - 01/04/2017 3:30 PM CDT Ambulatory Discharge Medication List [facility] [facility] [address], [place] [phone] Visit Information Name: ALTHEA ARIAS [facility] Number: [id number] Current Date: 01/04/2017 15:30:38 Attending Provider: BRIGHT MILLER MD Primary Care Provider: TIN SCHMIDT APRN PRESS OPERATOR APPRENTICE ALTHEA ARIAS has been given the following list of medications: Your Medications It is important to take your medications as directed. Use a pill box or chart to help remind you to take your medications. Please let your doctor or nurse know if you have problems taking your medications. Medication/Strength How to Take Indications/Special Instructions/Comments/Notes for Patient Medication Changes/Routing acetaminophen (acetaminophen 325 mg oral tablet) 2 Tablet(s), Oral, every 4 hours as needed for pain calcium-vitamin D (Calcium 600+D) 1 tab, Oral, two times a day DULoxetine (DULoxetine 30 mg oral delayed release capsule) 1 cap, Oral, once a day New Routed to [address] [address] folic acid (folic acid 1 mg oral tablet) 1 Tablet(s), Oral, once a day gabapentin (gabapentin 300 mg oral capsule) 1 cap, Oral, once a day (at bedtime) leflunomide (Arava 20 mg oral tablet) 1 Tablet(s), Oral, once a day levothyroxine (Levoxyl 75 mcg (0.075 mg) oral tablet) 1 Tablet(s), Oral, once a day methotrexate (methotrexate 2.5 mg oral tablet) 5 Tablet(s), Oral, every week on Saturday night predniSONE (predniSONE 5 mg oral tablet) 1 1/2 tab(s), Oral, once a day Stop Taking the Following Medications: Medication list as of 01-04-17 15:30 Attention: If you have any medications at home that are not on this list, DO NOT take them until youcontact your provider for clarification. Give a copy of your medication list to your primary care provider. Update your medication list any time medications or doses are changed and carry your medication list at all times in case of emergency. Electronically Signed By: BRIGHT MILLER MD Signed On:04-JAN-2017 15:28:33 Additional Information: Source: [facility] POWERCHART Document Id: [id number] Miscellaneous - Chloé Ramirez L.P.N. - 01/04/2017 2:48 PM CDT Adult Communications Programmer Intake/History Document Has Been Updated Adult Communications Programmer Intake/History Entered On: 01/04/2017 14:49 CDT Performed On: 01/04/2017 14:48 CDT by CHLOÉ RAMIREZ LPN Intake Temperature Core : 36.2 DegC(Converted to: 97.2 DegF) (LOW) Peripheral Pulse Rate : 60 /min Respiratory Rate : 16 /min Systolic Blood Pressure : 114 mmHg Diastolic Blood Pressure : 60 mmHg NIBP Mean : 78 mmHg BP Location : Right upper extremity Blood Pressure Cuff Size : Large Actual Weight : 73.05 kg(Converted to: 161 lb 1 oz) Weight Source : Standing scale Dosing Weight Clinic : 73.05 kg Clinic BSA : 1.79 Body Mass Index : 29.26 kg/m2 CHLOÉ RAMIREZ LPN - 01/04/2017 14:49 CDT Chief Complaint : headaches for past week, body aches, would also like flu shot CHLOÉ RAMIREZ LPN - 01/04/2017 14:53 CDT Height : 158 cm(Converted to: 5 ft 2 inch(es), 62 inch(es)) CHLOÉ RAMIREZ LPN - 01/04/2017 14:48 CDT General Info Information Given By : Patient Preferred Communication Mode : Verbal Languages : Ana Is Patient Female and 13-50 no hysterectomy : No CHLOÉ RAMIREZ LPN - 01/04/2017 14:48 CDT Subjective Pain Symptoms : Yes CHLOÉ RAMIREZ LPN - 01/04/2017 14:48 CDT Pain Scale Pain Scale Verbal 0-10 : Open CHLOÉ RAMIREZ LPN - 01/04/2017 14:48 CDT Pain Pain Assessment Grid Pain 1 Pain 2 Location : Generalized Head CHLOÉ RAMIREZ LPN - 01/04/2017 14:48 CDT CHLOÉ RAMIREZ LPN - 01/04/2017 14:48 CDT Dependent Habits Exposure to Tobacco Smoke : Other: never Smoking Status : Never smoker Tobacco 2A : No Tobacco Use/Currently Using : No Tobacco Use/Last 30 Days : No Tobacco Use/Last 12 months : No CHLOÉ RAMIREZ [facility] [address] - 01/04/2017 14:48 CDT Caffeine Use Grid Caffeine Use : Current Type : Coffee, Tea Frequency : Daily CHLOÉ RAMIREZ [facility] [address] - 01/04/2017 14:48 CDT Recreational Drug Use Grid Drug Use : None CHLOÉ RAMIREZ [facility] [address] - 01/04/2017 14:48 CDT Source: [employer] Document Id: [id number] documented in this encounter Plan of Treatment Upcoming Encounters Date Type Specialty Care Team Description 02/01/2022 Comprehensive Visit Family Medicine Tin Schmidt, Kuldip EUBANKS, C.N.P. [address], [place] [phone] (Wo rk) documented as of this encounter Visit Diagnoses Not on filedocumented in this encounter Care Teams Methods Study Analyst Relationship Specialty Start Date End Date Tin Schmidt APRN, C.N.P. PCP - General 08/16/16 [address] [place] [phone] documented as of this encounter
--- OUTSIDE RECORDS SUMMARY | 2022-01-21 23:26 | XMS_ITS | Encounter Summary ---
:1955 Author Organization [facility] Address [address] [place] [address] Care Team Providers Name Role Phone Cynthia Rockwell APRN C.N.PShelton Primary Care Provider Encounter Details Date Type Department Care Team Description 10/11/2016 Telemedicine Department of Rheumatology Social History Tobacco [...] Family Medicine Cynthia Rockwell, Kuldip PRN, C.N.P. [address], [place] [phone] (Wo rk) documented as of this encounter Procedures Procedure Name Priority Date/Time Associated Comments Diagnosis RHEUMATOLOGY IMAGE Routine 10/11/2016 2:25 PM Res ults for this EXAM CDT procedure are i n the results section. documented in this encounter Results RHEUMATOLOGY IMAGE EXAM (10/11/2016 2:25 PM CDT) Specimen (Source) Anatomical Collection Method Collection Time Re ceived Time Location / / Volume Laterality 10/11/2016 2:25 PM CDT Narrative [facility] - 10/11/2016 2:42 PM CDT This order has been created [...] in this encounter Care Teams Director Of Corporate Strategy Relationship Specialty Start Date End Date Cynthia Rockwell, SOHAN, C.N.P. PCP - General 08/16/16 [address] [place] [phone] documented as of this encounter
--- OUTSIDE RECORDS SUMMARY | 2022-01-21 23:26 | XMS_ITS | Encounter Summary ---
:1955 Author Organization [facility] Address [address] [place] [address] Care Team Providers Name Role Phone Cynthia Rockwell APRN C.N.PShelton Primary Care Provider Encounter Details Date Type Department Care Team Description 01/02/2017 Telemedicine Department of Rheumatology Social History Tobacco [...] Family Medicine Cynthia Rockwell, Kuldip PRN, C.N.P. [address], [place] [phone] (Wo rk) documented as of this encounter Procedures Procedure Name Priority Date/Time Associated Comments Diagnosis RHEUMATOLOGY IMAGE Routine 01/02/2017 2:25 PM Res ults for this EXAM CDT procedure are i n the results section. documented in this encounter Results RHEUMATOLOGY IMAGE EXAM (01/02/2017 2:25 PM CDT) Specimen (Source) Anatomical Location Collection Method / Collectio n Time Received Time / Laterality Volume Narrative [facility] - 01/05/2017 12:33 AM CDT This order has been created [...] on filedocumented in this encounter Care Teams Store Clerk Relationship Specialty Start Date End Date Cynthia Rockwell, SOHAN, C.N.P. PCP - General 08/16/16 [address] [place] [phone] documented as of this encounter
--- OUTSIDE RECORDS SUMMARY | 2022-01-21 23:26 | XMS_ITS | Encounter Summary ---
:1955 Author Organization [facility] Address [address] [place] [address] Care Team Providers Name Role Phone Cynthia Rockwell APRN, C.N.P. Primary Care Provider [phone] Encounter Details Date Type Department Care Team Description 03/27/2017 Hospital Encounter Department of Perry Arana is Rheumatoid Laboratory Medicine R, SOHAN, C.N .P. ([facility]) in [place] [address] [address] [place], [place] [phone] (Work) [phone] Social History Tobacco Use Types Packs/Day Years [...] Medicine Cynthia Rockwell, Kuldip PRN, C.N.P. [address] [phone] (Wo rk) documented as of this encounter Procedures Procedure Name Priority Date/Time Associated Comments Diagnosis CYCLIC CITRULLINATED Routine 03/27/2017 4:45 Arthritis Resu lts for this PEPTIDE ABS, IGG, S PM [facility] SPINNER Rheumatoid (HCC) proc edure are in the results section. SEDIMENTATION RATE, B Routine 03/27/2017 4:45 Arthritis Res ults for this PM [facility] SPINNER Rheumatoid (HCC) procedure a re in the results section. CBC WITH DIFFERENTIAL, B Routine 03/27/2017 4:45 Arthritis Results for this PM [facility] SPINNER Rheumatoid (HCC) procedure a re in the results section. RHEUMATOID FACTOR, S/P Routine 03/27/2017 4:45 Arthritis Re sults for this PM [facility] SP[facility] Rheumatoid (HCC) procedure a re in the results section. C-REACTIVE PROTEIN Routine 03/27/2017 4:45 Arthritis Result s for this (CRP), S/P PM [facility] Rheumatoid (HCC) procedure a re in the results section. ASPARTATE Routine 03/27/2017 4:45 Arthritis Results for this AMINOTRANSFERASE (AST), PM [facility] SPINNER Rheumatoid (HCC) procedure are in S/P the results section. CREATININE WITH EGFR, Routine 03/27/2017 4:45 Arthritis Res ults for this S/P PM [facility] SPINNER Rheumatoid (HCC) procedure a re in the results section. documented in this encounter Results (ABNORMAL) CRP (C-Reactive Protein) (03/27/2017 4:45 PM HYDRAULIC SPINNER) athologist Signature C-Reactive 22.8 (H) <=8.0 mg/L 03/27/2017 [facility] Protein (CRP), 9:33 PM [facility] Specimen Anatomical Collection Method Collection Time Receive d Time (Source) Location / / Volume Laterality Blood (Blood, 03/27/2017 4:45 PM 03/27/19 18 9:15 Venous) [facility]NER [facility] Perry Arana APRN, C.N.P. LAB BLOOD ADD-ON Performing Organization Address City/State/ZIP Code Phon e Number [facility]- [address] [place] [address] [place] LAB (ABNORMAL) Sedimentation Rate (03/27/2017 4:45 PM HYDRAULIC SPINNER) [facility] gist Method Time Signature Sedimentation 41 (H) 0 - 29 03/27/2017 [facility] Rate, B mm/1 h 5:31 PM [facility] Specimen Anatomical Collection Method Collection Time Receive d Time (Source) Location / / Volume Laterality Blood (Blood, 03/27/2017 4:45 PM 03/27/19 18 4:46 Venous) HYDRA[facility]IC SPINNER PM [facility]NER Perry Arana APRN, C.N.P. LAB BLOOD ADD-ON Performing Organization Address City/State/ZIP Code Phon e Number [facility]- [address] [place] [address] [place] [facility]- [address] [place] [facility] [place] [address], [facility] [place] LAB (ABNORMAL) CBC with Differential (03/27/2017 4:45 PM HYDRAULIC SPINNER) [facility] Method Time Signature Hemoglobin 11.6 11.6 - 03/27/2017 [facility] 15.0 g/dL 4:58 PM [facility] Hematocrit 36.2 35.5 - 03/27/2017 [facility] 44.9 % 4:58 PM [facility] Erythrocytes 4.06 3.92 - 03/27/2017 [facility] 5.13 4:58 PM [facility] x10(12)/L [facility] MCV 89.2 78.2 - 03/27/2017 [facility] 97.9 fL 4:58 PM [facility] RBC Distrib Width 14.3 12.2 - 03/27/2017 [facility] 16.1 % 4:58 PM [facility] Platelet Count 208 157 - 371 03/27/2017 [facility] x10(9)/L 4:58 PM [facility] Leukocytes 3.3 (L) 3.4 - 9.6 03/27/2017 [facility] x10(9)/L 4:58 PM [facility] Neutrophils 1.91 1.56 - 03/27/2017 [facility] 6.45 4:58 PM [facility] x10(9)/L [facility] Lymphocytes 0.96 0.95 - 03/27/2017 [facility] 3.07 4:58 PM [facility] x10(9)/L [facility] Monocytes 0.27 0.26 - 03/27/2017 [facility] 0.81 4:58 PM [facility] x10(9)/L [facility] Eosinophils 0.15 0.03 - 03/27/2017 [facility] 0.48 4:58 PM [facility] x10(9)/L [facility] Basophils 0.01 0.01 - 03/27/2017 [facility] 0.08 4:58 PM [facility] x10(9)/L [facility] Specimen Anatomical Collection Method Collection Time Receive d Time (Source) Location / / Volume Laterality Blood (Blood, 03/27/2017 4:45 PM 03/27/19 18 4:46 Venous) HYDRAULIC SPINNER PM [facility] SPINNER Perry Arana APRN C.N.P. LAB BLOOD ADD-ON Performing Organization Address City/[facility]/ZIP Code Phon e Number [facility]- [address] [place] [address] [facility]- [address] [place], [place] [address] LAB (ABNORMAL) Rheumatoid Factor (03/27/2017 4:45 PM HYDRAULIC SPINNER) P athologist Signature Rheumatoid 416 (H) <15 IU/mL 03/27/2017 [facility] Factor, S 9:49 PM [facility] LAB Specimen Anatomical Collection Method Collection Time Receive d Time (Source) Location / / Volume Laterality Blood (Blood, 03/27/2017 4:45 PM 03/27/19 18 9:15 Venous) HYDRAULIC SPINNER PM [facility] SPINNER Perry Arana APRN, C.N.P. LAB BLOOD ADD-ON Performing Organization Address City/State/ZIP Code Phon e Number [facility]- [address] [place] [address] [place] LAB (ABNORMAL) Creatinine with Estimated GFR (MDRD) (03/27/2017 4:45 PM HYDRAULIC SPINNER) Analysis Performed At Patho logist Time Signature Creatinine 0.58 (L) 0.59 - 03/27/2017 [facility] 1.04 mg/dL 6:39 PM [facility] [employer] eGFR >90 >=60 03/27/2017 [facility] Non-Black/Afric mL/min/BSA 6:39 PM [facility] [employer]- [place] LAB Comment: ----ADDITIONAL INFORMATION---- Estimated GFR calculated using the 2009 CKD_EPI creatinine equation. eGFR Black/ >90 >=60 mL/min/BSA 03/27/2017 6:39 PM [facility] SYSTEM- [place] [facility] Comment: ----ADDITIONAL INFORMATION---- Estimated GFR calculated using the 2009 CKD_EPI creatinine equation. Specimen Anatomical Collection Method Collection Time Receive d Time (Source) Location / / Volume Laterality Blood (Blood, 03/27/2017 4:45 PM 03/27/19 18 6:23 Venous) HYDRAULIC SPINNER PM HYDRAULIC SPINNER Maisha Joaquin APRNN.[place] LAB BLOOD ADD-ON Performing Organization Address City/State/ZIP Code Phon e Number [facility]- [place] [address] [place] [address] LAB (ABNORMAL) Cyclic Citrullinated Peptide Antibodies, IgG (03/27/2017 4:45 PM HYDRAULIC SPINNER) [facility] Method Time Signature Cyclic >250.0 <20.0 03/28/2017 [facility] Citrullinated (H) (Negative 10:59 AM LABORATORIES - Peptide Ab, S ) U HYDRAULIC SPINNER [facility] Comment: Interpretation: Strong Positive (>=60.0) Specimen Anatomical Collection Method Collection Time Receive d Time (Source) Location / / Volume Laterality Blood (Blood, 03/27/2017 4:45 PM 03/28/19 18 6:28 Venous) HYDRAULIC SPINNER AM HYDRAULIC SPINNER Maisha Joaquin APRNN.P. LAB BLOOD ADD-ON Performing Organization Address City/State/ZIP Code Phon e Number [facility]ORATORIES - [address] [place], [place] [address] [facility] AST (Aspartate Aminotransferase) (03/27/2017 4:45 PM HYDRAULIC SPINNER) [facility] Method Time Signature Aspartate 21 8 - 43 03/27/2017 [facility] Aminotransferase U/L 6:39 PM [facility] (AST), S SYSTEM- [place] LAB Specimen Anatomical Collection Method Collection Time Receive d Time (Source) Location / / Volume Laterality Blood (Blood, 03/27/2017 4:45 PM 03/27/19 18 6:23 Venous) HYDRAULIC SPINNER PM HYDRAULIC SPINNER Arlette Joaquin APRN.N.P. LAB BLOOD ADD-ON Performing Organization Address City/State/ZIP Code Phon e Number [facility]- [place] [address] [place] [address] LAB documented in this encounter Visit Diagnoses Diagnosis Arthritis Rheumatoid (HCC) Bhutanese Language Deficit - Primary General Medical Examination Adult Hypothyroidism Acquired Arthritis Rheumatoid (HCC) High Risk Medication History Of Falling Encounter For COVID-19 Vaccine Immunizat ion Need Vaccine Immunization Influenza Encounter For Other Screening For Malign ant Neoplasm Of Breast documented in this encounter Care Teams Armed Security Officer Relationship Specialty Start Date End Date Cynthia Rockwell, SOHAN, C.N.P. PCP - General 08/16/[address] [phone] documented as of this encounter
--- OUTSIDE RECORDS SUMMARY | 2022-01-21 23:26 | XMS_ITS | Encounter Summary ---
:1955 Author Organization [facility] Address [address] [place] [address] Care Team Providers Name Role Phone Unavailable Primary Care Provider Unavailable Encounter Details Date Type Department Care Team Description 01/19/2016 Hospital Encounter HX [facility] FAMILYPRA Tin Schmidt, RISK CONTROL OFFICER, C.N.P. [address] [place], [place] [phone] (Wo rk) Social History [...] 1 to 4 times per year 09/01 druze services? Do you belong to any clubs [...] Sign Reading Time Taken Comments Blood Pressure 110/60 01/19/2016 9:25 AM TELECOMMUNICATIONS LINE INSTALLER Pulse 60 01/19/2016 9:25 AM TELECOMMUNICATIONS LINE INSTALLER Temperature - - Respiratory Rate 16 01/19/2016 9:25 AM TELECOMMUNICATIONS LINE INSTALLER Oxygen Saturation - - Inhaled Oxygen Concentration - - Weight 69.8 kg (153 lb 15.9 oz) 01/19/2016 9:25 AM TELECOMMUNICATIONS LINE INSTALLER Height 158 cm (5' 2.21) 01/19/2016 9:25 AM TELECOMMUNICATIONS LINE INSTALLER Body Mass Index 27.98 01/19/2016 9:25 AM TELECOMMUNICATIONS LINE INSTALLER documented in this encounter Medications at Time [...] tablet daily. documented as of this encounter H&P Notes Tin Schmidt, SOHAN, C.N.P. - 01/19/2016 9:29 AM CST Clinic Full Note CHIEF COMPLAINT/REASON FOR VISIT Having body aches that are bad at night time. Can manage during the day but bad at night. Wants flushot. HISTORY OF PRESENT ILLNESS Althea is here for Health Care Maintenance Exam. She is being seen with the assistance of her daughter, Ana Security Systems Administrator. Althea has rheumatoid arthritis, she follows in Rheumatology at [facility], last aappointment was January 05. Infusion therapy was discussed however Althea declined. She prefers tocontinue with oral medication. She is currently on Arava, methotrexate and Prednisone. She will be due for labs (CBC, creatinine and AST) in March. She uses acetaminophen for pain. She is wondering if she can try massage therapy. Hypothyroidism is stable on levothyroxine 75 mcg daily. MEDICATIONS acetaminophen 325 mg oral tablet, 650 mg, 2 tab(s), PO, q4hr, PRN, 1 refills Arava 20 mg oral tablet, 20 mg, 1 tab(s), PO, Daily Calcium 600+D, 1 tab, PO, 2xDay folic acid 1 mg oral tablet, 1 mg, 1 tab(s), PO, Daily Levoxyl 75 mcg (0.075 mg) oral tablet, 75 mcg, 1 tab(s), PO, Daily, 11 refills methotrexate 2.5 mg oral tablet, 12.5 mg, 5 tab(s), on Saturday night, PO, Weekly predniSONE 5 mg oral tablet, 10 mg, 2 tab(s), PO, Daily ALLERGIES NKA PAST MEDICAL HISTORY Chronic Arthritis Rheumatoid Arthritis, degenerative, lower leg/knee Combined cataracts Constipation, Unspecified Dyspepsia NOS Fx Vertebra Compression Lumbar Closed Subsequent High Risk Medication Osteopenia Historical Malaria NOS Tuberculosis converter PROCEDURES/SURGICAL HISTORY CT of lumbar spine (06/27/2014), Mammogram (10/09/2011), DEXA - Dual energy X-ray photon absorptiometry (06/27/2011), Bone density scan (03/20/2007), Lipid level (08/08/2006), Cytopathology, cervical or vaginal (any reporting system), collected in preservative fluid, automated thin layer preparation; manual screening under physician supervision.. (05/29/2006), Pap smear (05/29/2006). SOCIAL HISTORY Date Time: 01/19/2016 09:25 Tobacco: Smoking Status: Never smoker Exposure: Other: never Alcohol: Use: No Results Found Recreational Drugs: Use: None Type: No Results Found FAMILY HISTORY Sister: Negative: Brother: Negative: Brother:Positive: GERD - Gastro-esophageal reflux disease HEALTH MAINTENANCE Flu shot given today. SYSTEMS REVIEW GENERAL: No weight gain, no weight loss, [...] no difficulty moving arms and legs GI: No heartburn, no nausea, no vomiting, no stomach trouble, no constipation, no diarrhea, no blood in BM, no change in BM BREAST: No lumps of breast, no nipple discharge, no pain in breast : No vaginal discharge, no burning/pain with urination, no difficulty starting stream, no difficulty emptying bladder, no excessive urination MUSCULOSKELETAL: Rheumatoid arthritis with joint pain and swelling, joint stiffness, no muscle pain, no muscle stiffness, no back pain, no back stiffness SKIN: No skin rashes, no skin sores, no change in moles NEURO: No significant headaches, no slurred speech, no seizures, no dizziness, no loss of consciousness, no memory loss ENDOCRINE: No excessive thirst, no excessive bruising VITAL SIGNS T: 36.8 ??C (Core) HR: 60 RR: 16 BP: 110 / 60 HT: 158 cm WT: 69.85 kg BMI: 27.98 PHYSICAL EXAMINATION GENERAL: In general, the patient is a pleasant female who appears her stated age. SKIN: Without lesion. EYES: PERRLA. EOMI intact. Fundi sharp discs. Conjunctiva and lids normal. ENT: Tympanic membranes clear bilaterally. Nasal mucosa without erythema or congestion. Mouth without erythema or exudate. LYMPH NODES: Neck: Supple without adenopathy, no thyromegaly. Carotid pulses are equal bilaterally. BREASTS: No skin or nipple retraction. No palpable mass. No axillary adenopathy. No nipple discharge. PERIPHERAL VESSELS: Femoral, dorsal, pedal and posterior tibial pulses are equal. HEART: Regular rate and rhythm without murmur. LUNGS: Clear to auscultation, good inspiratory effort. ABDOMEN: Soft, nontender, no palpable mass, no hepatosplenomegaly. GENITALIA: Bartholin, urethra, vagina and cervix are without lesion. ThinPrep Pap smear done with spatula and cytobrush. Bimanual examination reveals uterus is midline, mobile, nontender. No adnexal masses. SPINE: Normal range of motion. No CVA tenderness. JOINTS: Limited range of motion due to RA. EXTREMITIES: Warm, dry, no cyanosis or peripheral edema. MENTAL: Alert and oriented times three. NEUROLOGIC: Deep tendon reflexes are +2 and symmetrical. LAB RESULTS Pap smear is pending. DIAGNOSTIC RESULTS Mammogram is pending. IMPRESSION/REPORT/PLAN Arthritis Rheumatoid Stable, continue to follow with [facility] every 3 months. Schedule lab for March 2016. Can arrange gentle massage therapy as needed. Ordered: OV Est Pt Level 3 - 82104 - 15 min Encounter for immunization Flu shot given. Ordered: OV Est Pt Prev 4064 - 73975 Encounter for screening for malignant neoplasm of cervix Ordered: OV Est Pt Prev 40-64 - 51915 Pathology - INCOMING FREIGHT CLERK Cytology Encounter for screening mammogram for malignant neoplasm of breast Ordered: MA Mammo Screening w/ CADD OV Est Pt Prev 40-64 - 82175 General Medical Exam Adult (GME) Continue to work on healthy diet and regular exercise program. I will mail laboratory results. Return for complete physical exam and mammogram in one year. Ordered: OV Est Pt Prev 40-64 - 89916 High Risk Medication Stable on Methotrexate managed by [facility]. Labs every 3 months. Eye exam every 6 months. Ordered: OV Est Pt Level 3 - 23921 - 15 min Hypothyroidism Acquired Stable on levothyroxine 75 mcg daily. Check TSH in March Ordered: OV Est Pt Level 3 - 05726 - 15 min Orders: AST CBC (includes Auto Differential) Creatinine MA Mammo Self Requested w/ CADD Thyroid Stimulating Hormone Electronically Signed By: TIN SCHMIDT APRN, CNP On: 01/19/2016 10:10 AM Source: [facility] POWERCHART Document Id: [id number] COMMUNICATIONS LINE INSTALLER documented in this encounter Nursing Notes Tin Schmidt APRN, C.N.P. - 01/19/2016 9:48 AM CST Ambulatory Patient Education The following Patient Education Materials have been given to the patient: Patient Education Materials: Infectious Disease Getting a Flu Vaccination Infectious Disease Getting a Flu Vaccination The flu (influenza) is caused by a virus that is easily spread. And it can be more dangerous than you think. A flu vaccine is your best chance to avoid the flu. The vaccine is given in the form of a shot (injection) or a nasal spray. Its best to get vaccinated each fall, before flu season starts. Thiscan be done at your doctors office or a health clinic. Drugstores, senior centers, and workplaces often offer flu vaccinations, too. If you have questions about getting vaccinated, ask your health careprovider. Flu Facts The flu vaccine will not give you the flu. The flu is caused by a virus. It cant be treated with antibiotics. The flu can be life-threatening, especially for people in high-risk groups. Influenza is not the same as stomach flu, the 24-hour bug that causes vomiting and diarrhea. This is most likely due to a GI (gastrointestinal) infection-not the flu. Flu Symptoms Flu symptoms tend to come on quickly. Fever, headache, fatigue, cough, sore throat, runny nose, and muscle aches are symptoms of the flu. Children may have upset stomach or vomiting, but adults usuallydont. Some symptoms, such as fatigue and cough, can last a few weeks. How a Flu Vaccine Protects You There are many strains (types) of flu viruses. Medical experts predict which 3 strains are most likely to make people sick each year. Flu vaccines are made from these strains. With the shot, inactivated (killed) flu viruses are injected into your body. With the nasal spray, live and weakened viruses are sprayed into your nose. The viruses in both vaccines cannot make you sick. But they do prompt the body to make antibodies to fight these flu strains. If youre exposed to the same strains later in theflu season, the antibodies will fight off the virus. Your health care provider can tell you which type of flu vaccine is right for you. Who Should Get the Flu Vaccination? Almost anyone can (and should) get vaccinated, especially people in the following high-risk groups: ?? Persons 50 and older ?? Babies and children 6 months and older (ask your healthcare provider if your child should receivethe vaccine) ?? Children on long-term aspirin therapy ?? People with chronic health problems (such as diabetes, chronic lung disease, asthma, or heart failure) ?? People receiving certain medical treatments ?? People who live in nursing homes or other long-term care facilities ?? women ?? Caregivers and household contacts of babies younger than 6 months ?? Health care workers Who Cant Get a Flu Vaccination? ?? Babies younger than 6 months ?? People who have had bad reactions to flu vaccination (including Guillain- Pang?? syndrome) ?? A person who has a high fever (the vaccine can be given after the fever goes away). Types of Flu Vaccines Two main types of flu vaccines are available, injection (shot) and nasal spray. Talk to your doctor about which type is right for you. ?? Injection (shot): ?? The regular flu shot is for persons 6 months and older. It is injected with a needle into the muscle of the upper arm. ?? The high dose shot is only for persons 65 years and older. It is also injected into the muscles of the upper arm. This vaccine has four times the amount of killed viruses than the regular flu shot. This helps the body produce more antibodies, which is important for older persons whose immune systems are weaker. ?? The intradermal shot is injected into the skin with a much smaller needle than for the regular flu shot. This vaccine has a much smaller amount of killed viruses than the regular flu shot. But this is just as effective as the regular flu shot in prompting the body to produce antibodies. ?? Two different influenza vaccines are now available for use in people with a severe egg allergy. Talk with your doctor about seeing an manager of global before getting the flu vaccine. ?? Nasal spray: This is a vaccine thats sprayed into the nose. It is available only for healthy persons ages 2 through 49. It should not be used for women. ?? [address] [place] [address]. All rights reserved. This information is not intended as a substitute for professional medical care. Always follow your healthcare professional's instructions. This document has images extracted. Please consider using [employer] for all your patient education needs. Source: [facility] POWERCHART Document Id: [id number] COMMUNICATIONS LINE INSTALLER documented in this encounter Miscellaneous Notes Miscellaneous - Tin Schmidt APRN, C.N.P. - 01/30/2016 2:30 PM CST From: TIN SCHMIDT APRN, CNP To: ALTHEA ARIAS Sent: 01/30/2016 14:30:14 TELECOMMUNICATIONS LINE INSTALLER Althea, I am happy to inform you that your recent Pap smear has been read as normal or negative. This is very reassuring. I would recommend following up with your next Pap smear in three years. Tin Source: [facility] POWERCHART Document Id: [id number] Miscellaneous - Tin Schmidt APRN, C.N.P. - 01/19/2016 9:48 AM CST Ambulatory Patient Summary [address] [id number] Visit Information Name: ARIAS ALTHEA Kuldip [facility] Number: [id number] Current Date: 01/19/2016 09:48:48 Physicians Attending Provider: TIN SCHMIDT APRN, CNP Primary Care Provider: TIN SCHMIDT APRN, CNP ARIAS ALTHEA Kuldip has been given the following list of follow-up instructions, medication list, andpatient education materials: Follow-up Instructions Your Medications Here is a list of [...] 1 tab, Oral, two times a day folic acid (folic acid 1 mg oral tablet) 1 Tablet(s), Oral, once a day leflunomide (Arava 20 mg oral tablet) 1 Tablet(s), Oral, once a day levothyroxine (Levoxyl 75 mcg (0.075 mg) oral tablet) 1 Tablet(s), Oral, once a day methotrexate (methotrexate 2.5 mg oral tablet) 5 Tablet(s), Oral, every week on Saturday night predniSONE (predniSONE 5 mg oral tablet) 2 Tablet(s), Oral, once a day Stop Taking the Following Medications: ranitidine (ranitidine 150 mg oral tablet) Medication list as of 01-19-16 09:48 Attention: If you have any medications at home that are not on this list, DO NOT take them until youcontact your provider for clarification. Give a copy of your medication list to your primary care provider. Update your medication list any time medications or doses are changed and carry your medication list at all times in case of emergency. Electronically Signed By: TIN SCHMIDT APRN, CNP Signed On:19-JAN-2016 09:48:22 Your Allergies & Intolerances Substance Reaction Symptoms Category Comments No Known Allergies Drug Your Problem List Problem Status Onset Comments Constipation, Unspecified Active Osteopenia Active Arthritis, degenerative, lower leg/knee Active Dyspepsia NOS Active Arthritis Rheumatoid Active Fx Vertebra Compression Lumbar Closed Subsequent Active Combined cataracts Active 10/06/2010 High Risk Medication Active Your Upcoming Appointments Date Time Location Provider No Appointments found Attention: Contact your local Clinic if further appointment detail needed. Getting a Flu Vaccination The flu (influenza) is caused by a virus that is easily spread. And it can be more dangerous than you think. A flu vaccine is your best chance to avoid the flu. The vaccine is given in the form of a shot (injection) or a nasal spray. Its best to get vaccinated each fall, before flu season starts. Thiscan be done at your doctors office or a health clinic. Drugstores, senior centers, and workplaces often offer flu vaccinations, too. If you have questions about getting vaccinated, ask your health careprovider. Flu Facts The flu vaccine will not give you the flu. The flu is caused by a virus. It cant be treated with antibiotics. The flu can be life-threatening, especially for people in high-risk groups. Influenza is not the same as stomach flu, the 24-hour bug that causes vomiting and diarrhea. This is most likely due to a GI (gastrointestinal) infection--not the flu. Flu Symptoms Flu symptoms tend to come on quickly. Fever, headache, fatigue, cough, sore throat, runny nose, and muscle aches are symptoms of the flu. Children may have upset stomach or vomiting, but adults usuallydont. Some symptoms, such as fatigue and cough, can last a few weeks. How a Flu Vaccine Protects You There are many strains (types) of flu viruses. Medical experts predict which 3 strains are most likely to make people sick each year. Flu vaccines are made from these strains. With the shot, inactivated (killed) flu viruses are injected into your body. With the nasal spray, live and weakened viruses are sprayed into your nose. The viruses in both vaccines cannot make you sick. But they do prompt the body to make antibodies to fight these flu strains. If youre exposed to the same strains later in theflu season, the antibodies will fight off the virus. Your health care provider can tell you which type of flu vaccine is right for you. Who Should Get the Flu Vaccination? Almost anyone can (and should) get vaccinated, especially people in the following high-risk groups: ?? Persons 50 and older ?? Babies and children 6 months and older (ask your healthcare provider if your child should receivethe vaccine) ?? Children on long-term aspirin therapy ?? People with chronic health problems (such as diabetes, chronic lung disease, asthma, or heart failure) ?? People receiving certain medical treatments ?? People who live in nursing homes or other long-term care facilities ?? women ?? Caregivers and household contacts of babies younger than 6 months ?? Health care workers Who Cant Get a Flu Vaccination? ?? Babies younger than 6 months ?? People who have had bad reactions to flu vaccination (including Guillain- Pang? syndrome) ?? A person who has a high fever (the vaccine can be given after the fever goes away). Types of Flu Vaccines Two main types of flu vaccines are available, injection (shot) and nasal spray. Talk to your doctor about which type is right for you. ?? Injection (shot): ?? The regular flu shot is for persons 6 months and older. It is injected with a needle into the muscle of the upper arm. ?? The high dose shot is only for persons 65 years and older. It is also injected into the muscles of the upper arm. This vaccine has four times the amount of killed viruses than the regular flu shot. This helps the body produce more antibodies, which is important for older persons whose immune systems are weaker. ?? The intradermal shot is injected into the skin with a much smaller needle than for the regular flu shot. This vaccine has a much smaller amount of killed viruses than the regular flu shot. But this is just as effective as the regular flu shot in prompting the body to produce antibodies. ?? Two different influenza vaccines are now available for use in people with a severe egg allergy. Talk with your doctor about seeing an manager of global before getting the flu vaccine. ?? Nasal spray: This is a vaccine thats sprayed into the nose. It is available only for healthy persons ages 2 through 49. It should not be used for women. ?? 1174-[address]21 [address] [facility], [address] [place] [address], [place] [address]. All rights reserved. This information is not [...] if you dont have one. Go to [email or web address] and click on Create Your Account. Then, follow the directions to complete the online form. Youll be asked for your [facility] number which you can find at the top of this document. Your Goals/Additional instructions: This document has images extracted. Please consider using [employer] for all your patient education needs. Source: [facility] POWERCHART Document Id: [id number] COMMUNICATIONS LINE INSTALLER Miscellaneous - Tin Schmidt APRN, C.N.P. - 01/19/2016 9:48 AM CST Ambulatory Discharge Medication List [address] [id number] Visit Information Name: ALTHEA ARIAS [facility] Number: [id number] Current Date: 01/19/2016 09:48:47 Attending Provider: TIN SCHMIDT APRN WIND SITE MANAGER Primary Care Provider: TIN SCHMIDT APRN WIND SITE MANAGER ARIAS, ALTHEA A has been given the following list of [...] 1 tab, Oral, two times a day folic acid (folic acid 1 mg oral tablet) 1 Tablet(s), Oral, once a day leflunomide (Arava 20 mg oral tablet) 1 Tablet(s), Oral, once a day levothyroxine (Levoxyl 75 mcg (0.075 mg) oral tablet) 1 Tablet(s), Oral, once a day methotrexate (methotrexate 2.5 mg oral tablet) 5 Tablet(s), Oral, every week on Saturday night predniSONE (predniSONE 5 mg oral tablet) 2 Tablet(s), Oral, once a day Stop Taking the Following Medications: ranitidine (ranitidine 150 mg oral tablet) Medication list as of 01-19-16 09:48 Attention: If you have any medications at home that are not on this list, DO NOT take them until youcontact your provider for clarification. Give a copy of your medication list to your primary care provider. Update your medication list any time medications or doses are changed and carry your medication list at all times in case of emergency. Electronically Signed By: TIN SCHMIDT APRN WIND SITE MANAGER Signed On:19-JAN-2016 09:48:22 Additional Information: Source: [facility] POWERCHART Document Id: [id number] COMMUNICATIONS LINE INSTALLER Miscellaneous - Gunjan Meza L.P.[place]helton - 01/19/2016 9:25 AM CST Adult Soap Worker Intake/History Adult Soap Worker Intake/History Entered On: 01/19/2016 9:29 TELECOMMUNICATIONS LINE INSTALLER Performed On: 01/19/2016 9:25 TELECOMMUNICATIONS LINE INSTALLER by GUNJAN MEZA LPN Intake Chief Complaint : Having body aches that are bad at night time. Can manage during the day but bad atnight. Wants flu shot. LMP Date : Postmenopausal Temperature Core : 36.8 DegC(Converted to: 98.2 DegF) Peripheral Pulse Rate : 60 /min Respiratory Rate : 16 /min Heart Rhythm : Regular Systolic Blood Pressure : 110 mmHg Diastolic Blood Pressure : 60 mmHg NIBP Mean : 77 mmHg BP Location : Left upper extremity Blood Pressure Cuff Size : Regular Height : 158 cm(Converted to: 5 ft 2 inch(es), 62 inch(es)) Actual Weight : 69.85 kg(Converted to: 154 lb 0 oz) Weight Source : Standing scale Dosing Weight Clinic : 69.85 kg Clinic BSA : 1.75 Body Mass Index : 27.98 kg/m2 GUNJAN MEZA LPN - 01/19/2016 9:25 TELECOMMUNICATIONS LINE INSTALLER General Info Information Given By : Patient Languages : Ana Is Patient Female and 13-50 no hysterectomy : No GUNJAN MEZA LPN - 01/19/2016 9:25 TELECOMMUNICATIONS LINE INSTALLER Subjective Pain Symptoms : Yes GUNJAN MEZA LPN - 01/19/2016 9:25 TELECOMMUNICATIONS LINE INSTALLER Pain Scale Pain Scale Verbal 0-10 : Open GUNJAN MEZA LPN - 01/19/2016 9:25 TELECOMMUNICATIONS LINE INSTALLER Pain Pain Assessment Grid Pain 1 Location : Other: All over body pain. Intensity : 7 Time Pattern : Intermittent GUNJAN MEZA LPN - 01/19/2016 9:25 TELECOMMUNICATIONS LINE INSTALLER Dependent Habits Exposure to Tobacco Smoke : Other: never Smoking Status : Never smoker Tobacco 2A : No Tobacco Use/Currently Using : No Tobacco Use/Last 30 Days : No Tobacco Use/Last 12 months : No GUNJAN MEZA LPN - 01/19/2016 9:25 TELECOMMUNICATIONS LINE INSTALLER Caffeine Use Grid Caffeine Use : Current Type : Coffee, Tea Frequency : Daily GUNJAN MEZA LPN - 01/19/2016 9:25 TELECOMMUNICATIONS LINE INSTALLER Recreational Drug Use Grid Drug Use : None GUNJAN MEZA LPN - 01/19/2016 9:25 TELECOMMUNICATIONS LINE INSTALLER Source: [facility] POWERCHART Document Id: [id number] TELECOMMUNICATIONS LINE INSTALLER!48 COMMUNICATIONS LINE INSTALLER documented in this encounter Plan of Treatment Upcoming Encounters Date Type Specialty Care Team Description 02/01/2022 Comprehensive Visit Family Medicine Tin Schmidt A PRN, C.N.P. [address], [place] [phone] (Wo rk) documented as of this encounter Procedures Procedure Name Priority Date/Time Associated Diagnosis Comme nts PATHOLOGY INCOMING FREIGHT CLERK Routine 01/19/2016 12:00 AM Results for this CYTOLOGY TELECOMMUNICATIONS LINE INSTALLER procedure are i n the results section. documented in this encounter Results Pathology INCOMING FREIGHT CLERK Cytology (01/19/2016 12:00 AM TELECOMMUNICATIONS LINE INSTALLER) Specimen (Source) Anatomical Location Collection Method / Collectio n Time Received Time / Laterality Volume 01/19/2016 Narrative [facility] - 01/27/2016 10:31 AM TELECOMMUNICATIONS LINE INSTALLER [facility] in [address] [place] [address] ??[phone] Patient Name: ALTHEA ARIAS Patient ID #: [id number] Collected: 01/19/2016 Address: [facility]/State/Zip: [address] [place] [address] ??[phone] Received: Reported: 01/19/2016 01/27/2016 Soc. Sec. #: ?/Age/Sex 1955 (Age: 60) ??F Physician(s): ENRIQUE SCHMIDT CNP Copy To: ? [facility] ??[id number] [address] [place] [address], ??[place] ??[address] CYTOPATHOLOGY INCOMING FREIGHT CLERK REPORT FINAL CYTOLOGIC DIAGNOSIS Pap Smear - ThinPrep with HPV: NEGATIVE FOR INTRAEPITHELIAL LESION OR MALIGNANCY ENDOCERVICAL CELLS/COMPONENT PRESENT. SATISFACTORY SPECIMEN FOR EVALUATION. Electronically Signed Out By shaneka/01/27/2016 RAJIV SAENZ(ASCP) The Pap test is a screening procedure an d, as such, is subject to both false positive and false negative results as evidenced by published data. ??It is not a diagnostic test and results should be inter preted in the context of the patient's h istory and other clinical findings. ??Obtaining per iodic Pap tests may help to minimize the consequences of any false negatives that may occur. Procedures/Addenda: HUMAN PAPILLOMA VIRUS ADDENDUM ? Colin e Ordered: ? 01/19/2016 ? Status: ??Signed Out Date Complete: ? 01/27/2016 ? By : ??RC Adama CT(ASCP) Date Reported: ? 01/27/2016 INTERPRETATION: Test: Aptima High Risk HPV Result: NEGATIVE FOR HIGH RISK HPV Specimen Description: ThinPrep? ?? Pap Test PreservCyt Solution HPV by Case Assembler-Mediated Amplificat ion (TMA) for E6/E7 viral messenger RNA (mRNA) is an in-vitro diagnostic test for the detection of 14 high-risk Human Papillomavirus (HPV) types (16, 18, 31, 33, 35, 39, 45, 51, 52, 56, 58, 59, 66, and 68) in cervical specimen. Intended for co-testi ng or reflex testing of ASC-US Pap smears. Interpretation for patients with ASC-US cytology: Low likelihood of underlying high-grade CIN2-3 or cancer; results are not intended to prevent women from proceeding to colposcopy. Interpretation for patients with NILM cy tology who are over 30 years old: Very low likelihood of underlying high-grade IAIN or cancer; results do not preclude future HPV infection or cytologic abnormalities with underlying CIN2-3 or cancer. SPECIMEN(S) RECEIVED: Pap Smear - ThinPrep with HPV CLINICAL HISTORY: Date of Last Menstrual Period: NONE Menstrual History: Postmenopausal Hormonal History: No hormonal therapy Other Clinical Conditions: HPV TYPING REQUESTED Tin Schmidt APRN, C.N.P. LAB PAP COPATH ORDERABLES Performing Organization Address City/State/ZIP Code Phon e Number LCM LAB documented in this encounter Visit Diagnoses Not on filedocumented in this encounter
--- OUTSIDE RECORDS SUMMARY | 2022-01-21 23:26 | XMS_ITS | Encounter Summary ---
:1955 Author Organization [facility] Address [address] [place] [address] Care Team Providers Name Role Phone Unavailable Primary Care Provider Unavailable Encounter Details Date Type Department Care Team Description 07/13/2016 Hospital Encounter HX [facility] Tin Schmidt A PRN, C.N.P. [address] [place], [place] [phone] (Wo rk) Social History [...] - - Height 158 cm (5' 2.21) 07/13/2016 12:34 PM CDT Body Mass Index - - documented [...] tablet daily. documented as of this encounter Miscellaneous Notes Miscellaneous - Tin Schmidt, SOHAN, C.N.P. - 07/16/2016 11:00 AM CDT Normal Results Letter July 16, 2016 ALTHEA ARIAS [facility] [place] [address] [phone] Dear ALTHEA ARIAS, I am pleased to report that your results from the following diagnostic test(s) are normal. Please follow up with us as we discussed during your visit or sooner if you have any concerns. If you have questions or concerns, please do not hesitate to call our office. Would you like to see your lab results quickly? If you have an e-mail account, join the other [phone] [facility] patients who use the Patient Online Services to conveniently access their lab results by calling [phone] to sign up for an account. It just takes a few minutes! Result Name Current Result Previous Result Normal Range FIT/Fecal Occult Bld-[place] Negative 07/13/2016 Negative 05/30/2015 Negative - Sincerely, TIN SCHMIDT [address] [place] [address] Electronic Signature Electronically Signed By: TIN SCHMIDT APRN, CNP On: July 16, 2016 This document has images extracted. Source: [facility] POWERCHART Document Id: [id number] Electronically signed by Conversion, [facility] Carbonation Equipment Tender [id number] at 08/14/2016 3:38 AM CDT documented in this encounter Plan of Treatment Upcoming Encounters Date Type Specialty Care Team Description 02/01/2022 Comprehensive Visit Family Medicine Tin Schmidt A PRN, C.N.P. [address], [place] [phone] (Wo rk) documented as of this encounter Procedures Procedure Name Priority Date/Time Associated Diagnosis Comme nts OCCULT BLOOD, QL, Routine 07/13/2016 12:36 PM Res ults for this IMMUNOCHEMICAL, F CDT procedure are in the results section. documented in this encounter Results Fecal Occult Blood, Colorectal Cancer Screen, Qualitative, Immunochemical (07/13/2016 12:36 PM CDT) athologist Signature Occult Blood, Negative Negative POWERCHART Fecal Comment: Negative result. ??This test will not de tect upper gastrointestinal bleeding; the HemoQuant test (9220)should be ordered if clinically indicated. Test Performed by: [facility] - [address] [address] Specimen (Source) Anatomical Collection Method Collection Time Re ceived Time Location / / Volume Laterality Stool 07/13/2016 12:36 PM CDT Tin Schmidt APRN, C.N.P. LAB BODY FLUIDS AND STOOLS ORDERABLES Performing Organization Address City/State/ZIP Code Phon e Number POWERCHART documented in this encounter Visit Diagnoses Not on filedocumented in this encounter
--- OUTSIDE RECORDS SUMMARY | 2022-01-21 23:26 | XMS_ITS | Encounter Summary ---
:1955 Author Organization [facility] Address [address] [place] [address] Care Team Providers Name Role Phone Unavailable Primary Care Provider Unavailable Encounter Details Date Type Department Care Team Description 01/19/2016 Hospital Encounter HX NO MAPPING Cynthia Rockwell, VINER OPERATOR, C.N.P. 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 However, the narrative phrase printed from the coding software may appear abbreviated, or result in slightly different terminology. Coded By: SARAH DE ANDA Date Saved: 02/01/2016 08:09 pm Source: [facility] POWERCHART Document Id: [id number] documented in this encounter Plan of Treatment Upcoming Encounters Date Type Specialty Care Team Description 02/01/2022 Comprehensive Visit Family Medicine Cynthia Rockwell A PRN, C.N.P. [address] [place] [phone] (Wo rk) documented as of this encounter Visit Diagnoses Not on filedocumented in this encounter
--- OUTSIDE RECORDS SUMMARY | 2022-01-21 23:26 | XMS_ITS | Encounter Summary ---
:[address] [facility] Address [address] [place] [address] Care Team Providers Name Role Phone Unavailable Primary Care Provider Unavailable Encounter Details Date Type Department Care Team Description 07/04/2016 Hospital Encounter HX [facility] Dennise Shaw M.D. [address] [place], [place] [phone] (Wo rk) Social History [...] - - Height 158 cm (5' 2.21) 07/04/2016 4:00 PM CDT Body Mass Index - - [...] Medicine Cynthia Rockwell, Kuldip PRN, C.N.P. [address] [phone] (Wo rk) documented as of this encounter Procedures Procedure Name Priority Date/Time Associated Comments Diagnosis AUTOMATED DIFFERENTIAL, Routine 07/04/2016 4:08 R esults for this B PM CDT procedure are i n the results section. SEDIMENTATION RATE, B Routine 07/04/2016 4:08 Res ults for this PM CDT procedure are i n the results section. CBC WITH DIFFERENTIAL, B Routine 07/04/2016 4:08 Results for this PM CDT procedure are i n the results section. C-REACTIVE PROTEIN Routine 07/04/2016 4:08 Result s for this (CRP), S/P PM CDT procedure are i n the results section. ASPARTATE Routine 07/04/2016 4:08 Results for this AMINOTRANSFERASE (AST), PM CDT proc edure are in S/P the results section. CREATININE WITH EGFR, Routine 07/04/2016 4:08 Res ults for this S/P PM CDT procedure are i n the results section. documented in this encounter Results Automated Differential (07/04/2016 4:08 PM CDT) athologist Signature Absolute 3.69 1.70 - POWERCHART Neutrophils 7.00 109L Lymphocytes 1.19 0.90 - POWERCHART 2.90 X109L Monocytes 0.43 0.30 - POWERCHART 0.90 X109L Eosinophils 0.07 0.05 - POWERCHART 0.50 X109L Absolute 0.01 0.00 - POWERCHART Basophil 0.30 X109L Specimen Anatomical Collection Method Collection Time Receive d Time (Source) Location / / Volume Laterality Blood 07/04/2016 4:08 PM 7 4:08 CDT PM CDT Perry Arana APRN, C.N.P. LAB BLOOD ADD-ON Performing Organization Address City/[facility]/ZIP Code Phon e Number POWERCHART (ABNORMAL) Sedimentation Rate (07/04/2016 4:08 PM CDT) [facility] gist Method Time Signature Sedimentation 45 (H) 0 - 29 POWERCHART Rate, B MMHR Specimen (Source) Anatomical Collection Method Collection Time Re ceived Time Location / / Volume Laterality Blood 07/04/2016 4:08 PM CDT Perry Arana APRN, C.N.P. LAB BLOOD ADD-ON Performing Organization Address City/[facility] Code Phon e Number POWERCHART CBC with Differential (07/04/2016 4:08 PM CDT) athologist Signature Leukocytes 5.4 3.4 - 10.5 POWERCHART X109L Erythrocytes 4.52 3.90 - 5.03 POWERCHART [id number] Hemoglobin 13.1 12.0 - 15.5 POWERCHART GDL Hematocrit 40.9 34.9 - 44.5 POWERCHART MCV 90.5 82.0 - 98.0 POWERCHART FL HX RDW 14.1 11.9 - 15.5 POWERCHART Platelet Count 250 150 - 450 POWERCHART X109L Specimen (Source) Anatomical Collection Method Collection Time Re ceived Time Location / / Volume Laterality Blood 07/04/2016 4:08 PM CDT Perry Arana APRN, C.N.P. LAB BLOOD ADD-ON Performing Organization Address City/State/ZIP Code Phon e Number POWERCHART AST (Aspartate Aminotransferase) (07/04/2016 4:08 PM CDT) [facility] gist Method Time Signature Aspartate 27 8 - 43 POWERCHART Aminotransferase UNITL (AST), S Specimen (Source) Anatomical Collection Method Collection Time Re ceived Time Location / / Volume Laterality Blood 07/04/2016 4:08 PM CDT Perry Arana APRN, Arlette.N.P. LAB BLOOD ADD-ON Performing Organization Address City/[facility]/ZIP Code Phon e Number POWERCHART Creatinine with eGFR (07/04/2016 4:08 PM CDT) athologist Signature Creatinine 0.65 0.60 - POWERCHART 1.10 MGDL HXeGFR (MDRD) >60 >=60 POWERCHART [id number] eGFR >60 >=60 POWERCHART Black/ [id number] Palestinian Specimen (Source) Anatomical Collection Method Collection Time Re ceived Time Location / / Volume Laterality Blood 07/04/2016 4:08 PM CDT Perry Arana APRN, C.N.P. LAB BLOOD ADD-ON Performing Organization Address City/[facility]/ZIP Code Phon e Number POWERCHART (ABNORMAL) CRP (C-Reactive Protein) (07/04/2016 4:08 PM CDT) athologist Signature C-Reactive 15.5 (H) <=5.0 MGL POWERCHART Protein (CRP), S Specimen (Source) Anatomical Collection Method Collection Time Re ceived Time Location / / Volume Laterality Blood 07/04/2016 4:08 PM CDT Perry Arana APRN, C.N.P. LAB BLOOD ADD-ON Performing Organization Address City/State/ZIP Code Phon e Number POWERCHART documented in this encounter Visit Diagnoses Not on filedocumented in this encounter
--- OUTSIDE RECORDS SUMMARY | 2022-01-21 23:26 | XMS_ITS | Encounter Summary ---
:1955 Author Organization [facility] Address [address] [place] [address] Care Team Providers Name Role Phone Unavailable Primary Care Provider Unavailable Encounter Details Date Type Department Care Team Description 07/04/2016 Hospital Encounter HX [facility] FAMILYPRA Tin Schmidt, FINANCIAL SYSTEMS MANAGER, C.N.P. [address] [place], [place] [phone] (Wo rk) Social History [...] or relatives? How often do you attend anabaptist or 1 to 4 times per year 09/01 christianity services? Do you belong to any clubs or No 09/18/2018 organizations such as anabaptist groups, unions, fraternal or athletic groups, or [...] Reading Time Taken Comments Blood Pressure 110/62 07/04/2016 3:42 PM CDT Pulse 60 07/04/2016 3:42 PM CDT Temperature - - Respiratory Rate 16 07/04/2016 3:42 PM CDT Oxygen Saturation - - Inhaled Oxygen Concentration - - Weight 71 kg (156 lb 8.4 oz) 07/04/2016 3:42 PM CDT Height 158 cm (5' 2.21) 07/04/2016 3:42 PM CDT Body Mass Index 28.44 07/04/2016 3:42 PM CDT documented in this encounter Medications [...] documented as of this encounter Progress Notes Tin Schmidt, SOHAN, C.N.P. - 07/04/2016 3:34 PM CDT Clinic Full Note CHIEF COMPLAINT/REASON FOR VISIT Follow up of kidney and liver. Having lots pain. Sometimes she cannot move and needs help from family. Declines tetnaus HISTORY OF PRESENT ILLNESS Althea is here for review of medical concerns, to review and refill medications and to update Preventive Services. She is being seen with the assistance of [place] [employer]. She has rheumatoid arthritis, she follows with Rheumatology at [facility], she has an appointment next week. She is scheduled to have labs every 3 months including CBC, creatinine and AST. She has been have increased pain. She has 4 hours of UNIX SYSTEM ADMINISTRATOR services daily through [facility] social problems specialist. She states hose wrapper had talked to her about doing injections versus oral medications. She initially declined. She isreconsidering now and will discuss injections at her upcoming appointment. Hypothyroidism stable on L evoxyl 75 mcg daily. MEDICATIONS acetaminophen 325 mg oral tablet, Arava 20 mg oral tablet, 20 mg, 1 tab(s), PO, Daily Calcium 600+D, 1 tab, PO, 2xDay folic acid 1 mg oral tablet, 1 mg, 1 tab(s), PO, Daily Levoxyl 75 mcg (0.075 mg) oral tablet, methotrexate 2.5 mg oral tablet, 12.5 mg, [...] Pap smear (05/29/2006). SOCIAL HISTORY Date Time: 07/04/2016 15:42 Tobacco: Smoking Status: Never smoker Exposure: Other: never Alcohol: Use: No Recreational Drugs: Use: None Type: No Results Found FAMILY HISTORY Sister: Negative: Brother: Negative: Brother:Positive: GERD - Gastro-esophageal reflux disease HEALTH MAINTENANCE Doing FIT for colonoscopy screen. Adacel declined SYSTEMS REVIEW Positive for that mentioned in the History of Present Illness and Past Medical History. All other systems were reviewed and were negative. VITAL SIGNS T: 36.4 ??C (Core) HR: 60 RR: 16 BP: 110 / 62 HT: 158 cm WT: 71.00 kg BMI: 28.44 PHYSICAL EXAMINATION GENERAL: Well-developed, well-nourished, in no acute distress. SKIN: Warm and dry. HEENT: TMs clear. Throat clear. NECK: Supple. No lymphadenopathy or thyromegaly. HEART: Regular rate and rhythm. S1, S2. No murmur. LUNGS: Clear to auscultation. No wheezes or rales. ABDOMEN: Soft, nontender. No hepatosplenomegaly. EXTREMITIES: Warm, dry. No peripheral edema. LAB RESULTS CBC, AST, sedimentation rate, CRP and creatinine are pending. Will do FIT for colon screen IMPRESSION/REPORT/PLAN Arthritis Rheumatoid Stable on methotrexate 12.5 mg weekly, Arava 20 mg daily and prednisone 10 mg daily. Checking labs today. Continue to follow with Rheumatology at [facility]. High Risk Medication Hypothyroidism Acquired Stable, TSH 3.38 in March. Continue Levoxyl 75 mcg daily. Recheck TSH in 3 months. Electronically Signed By: TIN SCHMIDT APRN, CNP On: 07/04/2016 04:06 PM Source: [employer] Document Id: [id number] documented in this encounter Nursing Notes Tin Schmidt APRN, C.N.P. - 07/04/2016 3:53 PM CDT Ambulatory Patient Education The following Patient Education Materials have been given to the patient: Patient Education Materials: Ambulatory RHEUMATOID ARTHRITIS Ambulatory Rheumatoid Arthritis You have been diagnosed with rheumatoid arthritis (RA), a chronic inflammatory disease that mainly affects the joints. It is different from other forms of arthritis (like osteoarthritis) because RA is an autoimmune disease. This means that immune cells in the body that usually attack and destroy viruses and harmful bacteria turn against the body and begin attacking the joints and sometimes other parts of the body. The causes of RA are unknown. The disease usually starts slowly. It can begin as morning stiffness and muscle aches. You may feel weakness and a lack of energy. As the disease progresses, the joints begin to hurt and may be warm, swollen, tender and stiff after inactivity. Symptoms are worse in the morning after a nights rest and get better as you begin to move about. RA usually affects pairs of joints on both sides of the body (such as both hands, wrists, feet, ankles, knees, or elbows). You may notice that there are periods when your symptoms get worse (active disease) followed by periods where symptoms improve or go away completely (remission). There is no known cure for RA, but medical treatment can slow down or stop the progress of the disease and relieve symptoms. For advanced disease, surgery or joint replacement may provide the best results. Home Care: If you were prescribed a medication, take it as directed. You may use acetaminophen (Tylenol) or ibuprofen (Advil, Motrin) to control swelling and pain, unless another NSAID (non-steroidal anti-inflammatory drug) was prescribed. [NOTE: If you have chronic liver or kidney disease or ever had a stomach ulcer or GI bleeding, talk with your doctor before using these medicines.] Some persons find relief with heat (hot shower, hot bath or heating pad) and massage, while others prefer cold packs (crushed or cubed ice in a plastic bag, wrapped in a towel). Try both and use the method that feels best for 20 minutes several times a day. Exercise decreases pain and improves flexibility and is an important part of treatment for RA. Remain physically active. Move your joints through their full range of motion each morning. Avoid staying in any one position for long periods of time. Take breaks throughout the day and move around. Talk toyour doctor about an exercise plan that is right for you. If you are overweight, lose weight. Extra weight puts stress on your joints. If you smoke, quit. Smoking increases the risk of RA complications. No herbal product or nutritional supplement has been shown to definitely help RA. However, acupuncture and massage can be effective in relief of pain. Talk to your doctor or occupational therapist about easier ways to perform everyday tasks. There aremany assistive devices designed for gripping objects in the kitchen, etc. Follow Up with your doctor or as advised by our staff. For more information contact: ?? Arthritis Foundation [phone], www.arthritis.org ?? National [place] of Arthritis and Musculoskeletal and Skin Diseases (NIAMS) [phone], www.niams.nih.gov Return Promptly or contact your doctor if any of the following occur: ?? Increasing weakness, pale color of the skin, fainting ?? Chest pain or shortness of breath ?? Blood in your vomit or stool (black or red color) ?? Visual changes, skin ulcers ?? [phone] [facility], [address] [place] [address], [place] [address]. All rights reserved. This information is not intended as a substitute for professional medical care. Always follow your healthcare professional's instructions. Source: [facility] POWERCHART Document Id: [id number] documented in this encounter Miscellaneous Notes Miscellaneous - Tin Schmidt APRN, C.N.P. - 07/04/2016 3:54 PM CDT Ambulatory Patient Summary [address] [id number] Visit Information Name: ALTHEA ARIAS [facility] Number: [id number] Current Date: 07/04/2016 15:54:03 Physicians Attending Provider: TIN SCHMIDT APRN, CNP Primary Care Provider: TIN SCHMIDT APRN [facility] ALTHEA ARIAS has been given the following [...] the Following Medications: Medication list as of 07-04-16 15:54 Attention: If you have any medications at [...] Signed By: TIN SCHMIDT APRN, CNP Signed On:04-JUL-2016 15:53:51 Your Allergies & Intolerances Substance Reaction Symptoms [...] local Clinic if further appointment detail needed. Rheumatoid Arthritis You have been diagnosed with rheumatoid arthritis (RA), a chronic inflammatory disease that mainly affects the joints. It is different from other forms of arthritis (like osteoarthritis) because RA is an autoimmune disease. This means that immune cells in the body that usually attack and destroy viruses and harmful bacteria turn against the body and begin attacking the joints and sometimes other parts of the body. The causes of RA are unknown. The disease usually starts slowly. It can begin as morning stiffness and muscle aches. You may feel weakness and a lack of energy. As the disease progresses, the joints begin to hurt and may be warm, swollen, tender and stiff after inactivity. Symptoms are worse in the morning after a nights rest and get better as you begin to move about. RA usually affects pairs of joints on both sides of the body (such as both hands, wrists, feet, ankles, knees, or elbows). You may notice that there are periods when your symptoms get worse (active disease) followed by periods where symptoms improve or go away completely (remission). There is no known cure for RA, but medical treatment can slow down or stop the progress of the disease and relieve symptoms. For advanced disease, surgery or joint replacement may provide the best results. Home Care: If you were prescribed a medication, take it as directed. You may use acetaminophen (Tylenol) or ibuprofen (Advil, Motrin) to control swelling and pain, unless another NSAID (non-steroidal anti-inflammatory drug) was prescribed. [NOTE: If you have chronic liver or kidney disease or ever had a stomach ulcer or GI bleeding, talk with your doctor before using these medicines.] Some persons find relief with heat (hot shower, hot bath or heating pad) and massage, while others prefer cold packs (crushed or cubed ice in a plastic bag, wrapped in a towel). Try both and use the method that feels best for 20 minutes several times a day. Exercise decreases pain and improves flexibility and is an important part of treatment for RA. Remain physically active. Move your joints through their full range of motion each morning. Avoid staying in any one position for long periods of time. Take breaks throughout the day and move around. Talk toyour doctor about an exercise plan that is right for you. If you are overweight, lose weight. Extra weight puts stress on your joints. If you smoke, quit. Smoking increases the risk of RA complications. No herbal product or nutritional supplement has been shown to definitely help RA. However, acupuncture and massage can be effective in relief of pain. Talk to your doctor or occupational therapist about easier ways to perform everyday tasks. There aremany assistive devices designed for gripping objects in the kitchen, etc. Follow Up with your doctor or as advised by our staff. For more information contact: ?? Arthritis Foundation [phone], www.arthritis.org ?? National [place] of Arthritis and Musculoskeletal and Skin Diseases (NIAMS) [phone], www.niams.nih.gov Return Promptly or contact your doctor if any of the following occur: ?? Increasing weakness, pale color of the skin, fainting ?? Chest pain or shortness of breath ?? Blood in your vomit or stool (black or red color) ?? Visual changes, skin ulcers ?? [phone] Debbie Rodriguez, [address] [place] [address], [place] [address]. All rights reserved. This information is not [...] if you dont have one. Go to [email or web address] and click on Create Your Account. Then, follow the directions to complete the online form. Youll be asked for your [facility] number which you can find at the top of this document. Your Goals/Additional instructions: Source: [facility] POWERCHART Document Id: [id number] Miscellaneous - Tin Schmidt APRN, C.N.P. - 07/04/2016 3:54 PM CDT Ambulatory Discharge Medication List [address] [id number] Visit Information Name: CRISTA ARIASUMO Kuldip [facility] Number: [id number] Current Date: 07/04/2016 15:54:02 Attending Provider: TIN SCHMIDT APRN, CNP Primary Care Provider: TIN SCHMIDT APRN [facility] ARIASALTHEA Kuldip has been given the following list [...] the Following Medications: Medication list as of 07-04-16 15:54 Attention: If you have any medications at [...] emergency. Electronically Signed By: TIN SCHMIDT APRN AND TAXI INSTRUCTOR BUS TROLLEY Signed On:04-JUL-2016 15:53:51 Additional Information: Source: [facility] POWERCHART Document Id: [id number] Miscellaneous - Torito Meza L.P.N. 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 Having lots pain. Sometimes she cannot move and needs help from family. Declines brooklynnus TORITO MEZA LPN - 07/04/2016 15:45 CDT Temperature Core : 36.4 DegC(Converted to: 97.5 DegF) (LOW) Peripheral Pulse Rate : 60 /min Respiratory Rate : 16 /min Heart Rhythm : Regular Systolic Blood Pressure : 110 mmHg Diastolic Blood Pressure : 62 mmHg NIBP Mean : 78 mmHg BP Location : Right upper extremity Blood Pressure Cuff Size : Regular Height : 158 cm(Converted to: 5 ft 2 inch(es), 62 inch(es)) Actual Weight : 71.00 kg(Converted to: 156 lb 8 oz) Weight Source : Standing scale Dosing Weight Clinic : 71 kg Clinic BSA : 1.77 Body Mass Index : 28.44 kg/m2 OTRITO MEZA LPN - 07/04/2016 15:42 CDT General Info Information Given By : Patient, Other: [place] [employer] Preferred Communication Mode : Verbal Languages : Ana Is Patient Female and 13-50 no hysterectomy : No TORITO MEZA LPN - 07/04/2016 15:42 CDT Subjective Pain Symptoms : Yes TORITO MEZA LPN - 07/04/2016 15:42 CDT Pain Scale Pain Scale Verbal 0-10 : Open TORITO MEZA LPN - 07/04/2016 15:42 CDT Pain Pain Assessment Grid Pain 1 Location : Other: Pain all over body. Intensity : 10 Time Pattern : Constant TORITO MEZA LPN - 07/04/2016 15:42 CDT Dependent Habits Exposure to Tobacco Smoke : Other: never Smoking Status : Never smoker Tobacco 2A : No Tobacco Use/Currently Using : No Tobacco Use/Last 30 Days : No Tobacco Use/Last 12 months : No Alcohol Use : No TORITO MEZA LPN - 07/04/2016 15:42 CDT Caffeine Use Grid Caffeine Use : Current Type : Coffee, Tea Frequency : Daily TORITO MEZA LPN - 07/04/2016 15:42 CDT Recreational Drug Use Grid Drug Use : None TORITO MEZA LPN - 07/04/2016 15:42 CDT Source: [facility] [employer] Document Id: [id number] CDT!3 Miscellaneous - Torito Meza L.P.N. - 07/04/2016 3:41 PM CDT Health Assessment Health Assessment Entered On: 07/04/2016 15:42 CDT Performed On: 07/04/2016 15:41 CDT by TORITO MEZA LPN Health Assessment Complete Health Assessment Complete or Modified : Annual Health Assessment Annual Health Assessment Completed : Yes TORITO MEZA LPN - 07/04/2016 15:41 CDT Nutrition Nutrition Risk Factors by History Adult : None TORITO MEZA MANAGER NEONATAL - 07/04/2016 15:41 CDT Functional Current Daily Living Assistance : None TORITO MEZA LPN - 07/04/2016 15:41 CDT Dependent Habits Exposure to Tobacco Smoke : Other: never Smoking Status : Never smoker Tobacco 2A : No Tobacco Use/Currently Using : No Tobacco Use/Last 30 Days : No Tobacco Use/Last 12 months : No Alcohol Use : No TORITO MEZA LPN - 07/04/2016 15:41 CDT Caffeine Use Grid Caffeine Use : Current Type : Coffee, Tea Frequency : Daily TORITO MEZA MANAGER NEONATAL - 07/04/2016 15:41 CDT Recreational Drug Use Grid Drug Use : None TORITO MEZA MANAGER NEONATAL - 07/04/2016 15:41 CDT Psychosocial Domestic Abuse Concerns : None Behavioral Health Screen/Safety Assmt : No Catholic Preference : Unknown TORITO MEZA MANAGER NEONATAL - 07/04/2016 15:41 CDT Advance Directive Advanced Directives : No Advance Directive Additional Information : No TORITO MEZA MANAGER NEONATAL - 07/04/2016 15:41 CDT Educ Needs Learning Style Preference Adult Grid Patient : Printed materials, Verbal explanation Family : Verbal explanation, Printed materials TORITO MEZA MANAGER NEONATAL - 07/04/2016 15:41 CDT Source: [facility] [employer] Document Id: [id number] CDT!35 documented in this encounter Plan of Treatment Upcoming Encounters Date Type Specialty Care Team Description 02/01/2022 Comprehensive Visit Family Medicine Tin Schmidt, Kuldip PRN, C.N.P. [address] [place], [place] [phone] (Wo rk) documented as of this encounter Visit Diagnoses Not on filedocumented in this encounter
--- OUTSIDE RECORDS SUMMARY | 2022-01-21 23:26 | XMS_ITS | Encounter Summary ---
:1955 Author Organization [facility] Address [address] [place] [address] Care Team Providers Name Role Phone Cynthia Rockwell APRN, C.N.P. Primary Care Provider [phone] Encounter Details Date Type Department Care Team Description 03/11/2017 Orders Only Department of Family Cynthia Rockwell, Hyp othyroidism Acquired Medicine, [place] SOHAN C.N.P. (Primary Dx) Clinic, in [place], [address] [place] [address] [place], [place] [phone] (Work) [phone] Social History Tobacco Use Types Packs/Day Years [...] Medicine Cynthia Rockwell A PRN, C.N.P. [address] [place], [place] [phone] (Wo rk) documented as of this encounter Results S-TSH (Thyroid-Stimulating Hormone - Sensitive) (08/29/2017 2:08 PM CDT) athologist Signature TSH, Sensitive 4.1 0.3 - 4.2 08/29/2017 [facility] mIU/L 4:[address] [facility] Comment: Biotin has been identified by the alexsandra dukes as a potential interfering substance. ??Higher concentr ations of biotin may be found in multivitamins, hair/nail supple ments, and workout supplements. ??If the result does not [facility] clinical observations, repeat testing after patient refrains fr om the use of supplements for at least 12 hours. Specimen Anatomical Collection Method Collection Time Receive d Time (Source) Location / / Volume Laterality Blood 08/29/2017 2:08 PM 8 3:47 CDT PM CDT Cynthia Rockwell APRN, C.N.P. LAB BLOOD ADD-ON Performing Organization Address City/State/ZIP Code Phon e Number [facility] [address] [place] [id number] LAB documented in this encounter Visit Diagnoses Diagnosis Hypothyroidism Acquired - Primary Frisian Language Deficit - Primary General Medical Examination Adult Hypothyroidism Acquired Arthritis Rheumatoid (HCC) High Risk Medication History Of Falling Encounter For COVID-19 Vaccine Immunizat ion Need Vaccine Immunization Influenza Encounter For Other Screening For Malign ant Neoplasm Of Breast documented in this encounter Care Teams It Service Technician Relationship Specialty Start Date End Date Cynthia Rockwell APRN, C.N.P. PCP - General 08/16/[address] [phone] documented as of this encounter
--- OUTSIDE RECORDS SUMMARY | 2022-01-21 23:26 | XMS_ITS | Encounter Summary ---
:1955 Author Organization [facility] Address [address] [place] [address] Care Team Providers Name Role Phone Unavailable Primary Care Provider Unavailable Encounter Details Date Type Department Care Team Description 03/07/2016 Hospital Encounter HX [facility] Cynthia Rockwell A PRN, C.N.P. [address] [place], [place] [phone] (Wo rk) Social History [...] 1 to 4 times per year 09/01 scientologist services? Do you belong to any clubs [...] - Height 158 cm (5' 2.21) 03/07/2016 1:48 PM RESIDENT ASSISTANT CNA Body Mass Index - - documented in [...] Cynthia Rockwell, Kuldip PRN, C.N.P. [address] [phone] (Wo rk) documented as of this encounter Procedures Procedure Name Priority Date/Time Associated Diagnosis Comme nts THYROID-STIMULATING Routine 03/07/2016 2:00 PM Re sults for this HORMONE-SENSITIVE RESIDENT ASSISTANT CNA procedure are in (S-TSH) the results section. documented in this encounter Results Thyroid-Stimulating Hormone-Sensitive (s-TSH) (03/07/2016 2:00 PM RESIDENT ASSISTANT CNA) P athologist Signature TSH 3.38 0.27 - 4.20 POWERCHART (Thyrotropin) MIUL Comment: Biotin has been identified by the alexsandra dukes as a potential interfering substance. Higher concentrations of biotin may be found in multivitamins, hair/nail supplements, and workout supplements. If the result does not match clinical observat ions, repeat testing after patient refrains from the use of supplements for at least 12 hours. Specimen (Source) Anatomical Collection Method Collection Time Re ceived Time Location / / Volume Laterality Blood 03/07/2016 2:00 PM RESIDENT ASSISTANT CNA Cynthia Rockwell APRN, C.N.P. LAB BLOOD ADD-ON Performing Organization Address City/State/ZIP Code Phon e Number POWERCHART documented in this encounter Visit Diagnoses Not on filedocumented in this encounter
--- OUTSIDE RECORDS SUMMARY | 2022-01-21 23:26 | XMS_ITS | Encounter Summary ---
:1955 Author Organization [facility] Address [address] [place] [address] Care Team Providers Name Role Phone Cynthia Rockwell APRN, C.N.PShelton Primary Care Provider Encounter Details Date Type Department Care Team Description 03/07/2017 Abstract Department of Family Medicine, Provider, Historical [facility], in [place], [place] [address] [place] [address] Social History Tobacco Use [...] Medicine Cynthia Rockwell, Kuldip MENDOZAN, C.N.P. [address] [phone] (Wo rk) documented as of this encounter Visit Diagnoses Not on filedocumented in this encounter Care Teams Beam Builder Relationship Specialty Start Date End Date Cynthia Rockwell, SOHAN, C.N.P. PCP - General 08/16/16 [address] [place] [phone] documented as of this encounter
--- OUTSIDE RECORDS SUMMARY | 2022-01-21 23:26 | XMS_ITS | Encounter Summary ---
:1955 Author Organization [facility] Address [address] [place] [address] Care Team Providers Name Role Phone Unavailable Primary Care Provider Unavailable Encounter Details Date Type Department Care Team Description 03/07/2016 Hospital Encounter HX [facility] Cynthia Rockwell, DIALYSIS PATIENT CARE TECHNICIAN, C.N.P. [address] [place], [place] [phone] (Wo rk) Social History [...] - Height 158 cm (5' 2.21) 03/07/2016 2:07 PM OLERICULTURIST Body Mass Index - - documented in [...] Medicine Cynthia Rockwell, Kuldip PRN, C.N.P. [address] [phone] (Wo rk) documented as of this encounter Procedures Procedure Name Priority Date/Time Associated Diagnosis Comme nts BI BREAST SCREENING Routine 03/07/2016 2:39 PM Re sults for this BILATERAL OLERICULTURIST procedure are i n the results section. documented in this encounter Results BI Breast Screening Bilateral (03/07/2016 2:39 PM OLERICULTURIST) Anatomical Region Laterality Modality Breast Bilateral Mammography Specimen (Source) Anatomical Collection Method Collection Time Re ceived Time Location / / Volume Laterality 03/07/2016 2:39 PM OLERICULTURIST Addenda Addendum by Provider, Candis Nam 03/07/2016 2:39 PM OLERICULTURIST RAD^^^OW [place] Mammo Screening w ??CADD 03/07/2016 14:39:08 Impressions 03/13/2016 7:52 AM OLERICULTURIST No mammographic findings for malignancy in either breast. Recommendations: ??I recommend a follow- up mammogram in 1 year, self breast exams at least once per month and clinical breast exam at least once per year. ??Of note, benign f indings should not deter biopsy in the setting of a palpable abno rmality. ??The false negative rate of mammography is approximately 10% . CODE: 1-NEGATIVE Appropriate letter sent. Full field digital mammography is used a nd Computer Aided Detection is performed on the digital mammogram im ages. Narrative 03/13/2016 7:52 AM OLERICULTURIST EXAM: [place] Mammo Screening w/ CADD INDICATION: yearly screening COMPARISON: 01/04/2015, 1137 2012, 10/09/19 12, 08/28/2010. FINDINGS: Scattered fibroglandular densi ties both breasts. Procedure Note Kevin Pereyra M.D. / ProviderZiggy M.D. - 08/20/2016 EXAM: [place] Mammo Screening w/ CADD INDICATION: yearly screening COMPARISON: 01/04/2015, 1137 2012, 10/09/19 12, 08/28/2010. FINDINGS: Scattered fibroglandular densi ties both breasts. IMPRESSION: No mammographic findings for malignancy in either breast. Recommendations: I recommend a follow-up mammogram in 1 year, self breast exams at least once per month and clinical breast exam at least once per year. Of note, benign fin dings should not deter biopsy in the setting of a palpable abno rmality. The false negative rate of mammography is approximately 10% . CODE: 1-NEGATIVE Appropriate letter sent. Full field digital mammography is used a nd Computer Aided Detection is performed on the digital mammogram im ages. Historical Provider IMG BI PROCEDURES documented in this encounter Visit Diagnoses Not on filedocumented in this encounter
--- OUTSIDE RECORDS SUMMARY | 2022-01-21 23:26 | XMS_ITS | Encounter Summary ---
:1955 Author Organization [facility] Address [address] [place] [address] Care Team Providers Name Role Phone Cynthia Rockwell APRN, C.N.P. Primary Care Provider [phone] Reason for Visit Reason Comments URI Having headaches, fever off and on. Bodyaches. Coughing. Started 2 weeks ago. Encounter Details Date Type Department Care Team Description 03/07/2017 Office Visit Department of [facility] Cynthia Rockwell, Sin usitis Acute Maxillary (Primary Dx); Medicine, [place] SOHAN, C.N.P. Arthritis Rheumatoid (HCC); Clinic, in [place], [address] Hypothyroidism Acquired; [place], [place] High Risk Medication; [address] [address] Screening Lipid [place], [place] [phone] [address] (Work) [phone] Social History Tobacco Use Types Packs/Day Years [...] or relatives? How often do you attend jainism or 1 to 4 times per year 09/01 mormon services? Do you belong to any clubs or No 09/18/2018 organizations such as jainism groups, unions, [employer] or athletic groups, or school groups? How [...] Sign Reading Time Taken Comments Blood Pressure 124/72 03/07/2017 11:28 AM INFORMATION SECURITY RISK ANALYST Pulse 60 03/07/2017 11:28 AM INFORMATION SECURITY RISK ANALYST Temperature 36.7 ??C (98.1 ??F) 03/07/2017 11:28 AM INFORMATION SECURITY RISK ANALYST Respiratory Rate 16 03/07/2017 11:28 AM INFORMATION SECURITY RISK ANALYST Oxygen Saturation 100% 03/07/2017 11:28 AM INFORMATION SECURITY RISK ANALYST Inhaled Oxygen Concentration - - Weight 73.6 kg (162 lb 4.1 oz) 03/07/2017 11:28 AM INFORMATION SECURITY RISK ANALYST Height - - Body Mass Index 29.48 01/04/2017 2:48 PM CDT documented in this encounter Patient Instructions Patient InstructionsCynthia Rockwell APRN, C.N.P. - 03/07/2017 11:30 AM INFORMATION SECURITY RISK ANALYST It was a pleasure seeing you in the clinic! My goal is to always provide excellent care for my patients. If you receive a clinic survey in the mail and felt you received great care, I would sure appreciate you filling it out and sending it in. Thanks and take care! RMATION SECURITY RISK ANALYST AttachmentsThe following attachments cannot be sent through Care Everywhere. Acute Sinusitis (Namibian)documented in this encounter Progress Notes Cynthia Rockwell APRN, C.N.P. - 03/07/2017 11:30 AM CST SUBJECTIVE CHIEF COMPLAINT: Chief Complaint Patient presents with ??? URI Having headaches, fever off and on. Bodyaches. Coughing. Started 2 weeks ago. HISTORY OF PRESENT ILLNESS: Althea states she has had sinus congestion with headache and low-grade fever, she complains of body aches and cough. Symptoms started 2 weeks ago. She has rheumatoid arthritis stable on Cymbalta, gabapentin, methotrexate and prednisone. She follows with Rheumatology at [facility] in [place]. She isdue for labs including CBC, creatinine and AST. She has hypothyroidism stable on levothyroxine 75 mcg daily. Due for TSH. REVIEW OF SYSTEMS: The following portions of [...] ??? ammonium lactate (for_AMLACTIN) 12 % cream, , Disp: , Rfl: ??? azithromycin (for_ZITHROMAX) 250 mg tablet, Take 2 tabs (500 mg) by mouth today, than 1 tab (250mg) daily for 4 days., Disp: 6 tablet, Rfl: 0 ??? CALCIUM CARB/VIT D3/MINERALS (CALCIUM-VITAMIN D ORAL), Take by mouth 2 (two) times a day., Disp:, Rfl: ??? chlorhexidine (for_PERIDEX) 0.12 % mouthwash, , Disp: , Rfl: ??? DULoxetine (for_CYMBALTA) [address] capsule, , Disp: , Rfl: ??? folic acid 1 mg tablet, Take 1 tablet by mouth daily., Disp: , Rfl: ??? gabapentin (for_NEURONTIN) 300 mg capsule, Take 1 capsule by mouth at bedtime., Disp: , Rfl: ??? leflunomide (ARAVA) 20 mg tablet, Take 1 tablet by mouth daily., Disp: , Rfl: ??? levothyroxine (LEVOXYL) 75 mcg tablet, Take 1 tablet by mouth daily., Disp: , Rfl: ??? methotrexate 2.5 mg tablet, Take 5 tablets by mouth once a week., Disp: , Rfl: ??? predniSONE (for_DELTASONE) 5 mg tablet, Take by mouth daily., Disp: , Rfl: OBJECTIVE LABS and DIAGNOSTICS: CBC, BMP, TSH, Lipids and AST are pending. VITAL SIGNS: Temperature: [36.7 ??C] 36.7 ??C Resp Rate: [16] 16 Blood Pressure: (124)/(72) 124/72 SpO2: [100 %] 100 % Pulse Rate: [60] 60 PHYSICAL EXAM: GENERAL: Well-developed, well-nourished, in no [...] are +2 and symmetrical. ASSESSMENT /PLAN: #1 Sinusitis Acute Maxillary Worsening, azithromycin, 2 tablets on day 1, then 1 tablet on days 2-5, PO, as directed, x5 days. Encourage fluids, acetaminophen 325 mg, 2 tabs every 4 hours as needed for discomfort. Rest. Recheck ifsymptoms do not improve. #2 Arthritis Rheumatoid (HCC) Stable, checking labs today including CBC AST in creatinine. Results will be available to Rheumatology in [place]. She has follow-up scheduled in April. #3 Hypothyroidism Acquired Stable on levothyroxine 75 mcg daily. Checking TSH today. I will contact her with results. #4 High Risk Medication Methotrexate. #5 Screening Lipid HEALTH MAINTENANCE: Due for mammogram. Cynthia Lafleur APRN, C.N.P. - 03/07/2017 11:30 AM CST Please call her with an per diem interpreter find out if she has been taking her levothyroxine medication every day. TSH was elevated. If she is not, ask her to take it every day for the next 2 months and then recheck TSH. If she has been taking it every day let her know that I will be increasing her dose and sending a new prescription to her pharmacy and will want to repeat a TSH in 2 months. Cynthia Lafleur APRN, C.N.P. - 03/07/2017 11:30 AM CST Let her know all of the rest of her labs were stable. Gunjan Agrawal L.P.N. - 03/07/2017 11:30 AM CST Attempted to contact Althea through [employer]. No answer and message left to return my call. Will attempt to call again tomorrow. Gunjan Agrawal L.P.N. - 03/07/2017 11:30 AM CST 2nd attempt with the use of [employer]. Messages left to return my call. Gunjan Agrawal L.P.N. - 03/07/2017 11:30 AM CST 3rd attempt to contact Marlene on both phone numbers listed. Message left to return my call. Gunjan Agrawal L.P.N. - 03/07/2017 11:30 AM CST Attempted 3 times to contact. RMATION SECURITY RISK ANALYST Cynthia Rockwell APRN, C.N.P. - 03/07/2017 11:30 AM CST noted RMATION SECURITY RISK ANALYST documented in this encounter Plan of Treatment Upcoming Encounters Date Type Specialty Care Team Description 02/01/2022 Comprehensive Visit Family Medicine Cynthia Rockwell A PRN, C.N.P. [address] [place], [place] [phone] (Wo rk) documented as of this encounter Procedures Procedure Name Priority Date/Time Associated Diagnosis Comme nts LIPID PANEL, S Routine 03/07/2017 12:17 Screening Lipid Result s for this PM INFORMATION SECURITY RISK ANALYST procedure are i n the results section. ASPARTATE Routine 03/07/2017 12:17 Arthritis Rheumatoid Res ults for this AMINOTRANSFERASE (AST), PM INFORMATION SECURITY RISK ANALYST (HCC) procedure are in S/P High Risk Medication the res ults section. THYROID-STIMULATING Routine 03/07/2017 12:17 Hypothyroidism Re sults for this HORMONE-SENSITIVE PM INFORMATION SECURITY RISK ANALYST Acquired procedure are in (S-TSH) the results section. BASIC METABOLIC PANEL, Routine 03/07/2017 12:17 Arthritis Rheu matoid Results for this S/P PM INFORMATION SECURITY RISK ANALYST (HCC) procedure are in High Risk Medication the res ults section. documented in this encounter Results AST (Aspartate Aminotransferase) (03/07/2017 12:17 PM INFORMATION SECURITY RISK ANALYST) Patholo gist Method Time Signature Aspartate 22 8 - 43 03/07/2017 [facility] Aminotransferase U/L 5:00 PM [facility] [employer] (AST), [employer] [place] LAB Specimen Anatomical Collection Method Collection Time Receive d Time (Source) Location / / Volume Laterality Blood 03/07/2017 12:17 03/07/2017 3:41 PM INFORMATION SECURITY RISK ANALYST PM INFORMATION SECURITY RISK ANALYST Cynthia Rockwell HAM STRINGER, C.N.P. LAB BLOOD ADD-ON Performing Organization Address City/State/ZIP Code Phon e Number [facility] [address] [place] [address] LAB (ABNORMAL) S-TSH (Thyroid-Stimulating Hormone - Sensitive) (03/07/2017 12:17 PM INFORMATION SECURITY RISK ANALYST) P athologist Signature TSH, Sensitive 6.1 (H) 0.3 - 4.2 03/07/2017 [facility] mIU/L 5:00 PM [facility] [employer] [facility] [place] LAB Comment: Biotin has been identified by the manufa cturer as a potential interfering substance. ??Higher concentr ations of biotin may be found in multivitamins, hair/nail supple ments, and workout supplements. ??If the result does not [facility] clinical observations, repeat testing after patient refrains fr om the use of supplements for at least 12 hours. Specimen Anatomical Collection Method Collection Time Receive d Time (Source) Location / / Volume Laterality Blood 03/07/2017 12:17 03/07/2017 3:41 PM INFORMATION SECURITY RISK ANALYST PM INFORMATION SECURITY RISK ANALYST Cynthia Rockwell APRN C.NSheltonP. LAB BLOOD ADD-ON Performing Organization Address City/State/ZIP Code Phon e Number [facility] [address] [place] [address] LAB (ABNORMAL) Lipid Panel (03/07/2017 12:17 PM INFORMATION SECURITY RISK ANALYST) athologist Signature Cholesterol, 164 mg/dL 03/07/2017 [facility] Total 5:00 PM [facility] [place] LAB Comment: ----REFERENCE VALUE---- Desirable: < 200 Borderline high: 200 - 239 High: > or = 240 Triglycerides 105 mg/dL 03/07/2017 5:00 PM [facility] [place] LAB Comment: ----REFERENCE VALUE---- Normal: <150 Borderline high: 150-199 High: 200-499 Very high: > or =500 Cholesterol, HDL, S 46 (L) >=50 mg/dL 03/07/2017 5:00 PM [facility] [place] LAB Calculated LDL 97 mg/dL 03/07/2017 5:[address] [facility] [place] LAB Comment: ----REFERENCE VALUE---- Desirable: <100 Above Desirable: 100-129 Borderline high: 130-159 High: 160-189 Very high: > or =190 Cholesterol, Non-HDL, 118 mg/dL 03/07/2017 5:00 PM [facility] [place] B Comment: ----REFERENCE VALUE---- Desirable: <130 Above Desirable: 130-159 Borderline high: 160-189 High: 190-219 Very high: > or =220 Specimen Anatomical Collection Method Collection Time Receive d Time (Source) Location / / Volume Laterality Blood 03/07/2017 12:17 03/07/2017 3:41 PM INFORMATION SECURITY RISK ANALYST PM INFORMATION SECURITY RISK ANALYST Cynthia Rockwell APRN, C.N.P. LAB BLOOD ADD-ON Performing Organization Address City/State/ZIP Code Phon e Number [facility] [address] [place] [address] LAB BMP (Basic Metabolic Panel) (03/07/2017 12:17 PM INFORMATION SECURITY RISK ANALYST) P athologist Signature Potassium, S 4.5 3.6 - 5.2 03/07/2017 [facility] mmol/L 5:00 PM [facility] LAB Sodium, S 142 135 - 145 03/07/2017 [facility] mmol/L 5:00 PM [facility] [place] [facility] Chloride, S 105 98 - 107 03/07/2017 [facility] mmol/L 5:00 PM [facility] LAB Bicarbonate, S 25 22 - 29 03/07/2017 [facility] mmol/L 5:00 PM [facility] [employer] [facility] Anion Gap 12 7 - 15 03/07/2017 [facility] 5:00 PM [facility] BUN (Blood Urea 12 6 - 21 03/07/2017 [facility] Nitrogen), S mg/dL 5:00 PM [facility] [place] [employer] [facility] Creatinine 0.60 0.59 - 03/07/2017 [facility] 1.04 mg/dL 5:00 PM [facility] LAB eGFR >90 >=60 03/07/2017 [facility] Non-Black/Afric mL/min/BSA 5:00 PM [facility] [place] LAB Comment: ----ADDITIONAL INFORMATION---- Estimated GFR calculated using the 2009 CKD_EPI creatinine equation. eGFR Black/ >90 >=60 mL/min/BSA 03/07/2017 5:00 PM [facility] LAB Comment: ----ADDITIONAL INFORMATION---- Estimated GFR calculated using the 2009 CKD_EPI creatinine equation. Calcium, Total, S 9.0 8.9 - 10.1 mg/dL 03/07/2017 5 :00 PM [facility] LAB Glucose, S 92 70 - 140 mg/dL 03/07/2017 5:00 PM INFORMATION SECURITY RISK ANALYST M [facility] LAB Specimen Anatomical Collection Method Collection Time Receive d Time (Source) Location / / Volume Laterality Blood 03/07/2017 12:17 03/07/2017 3:41 PM INFORMATION SECURITY RISK ANALYST PM INFORMATION SECURITY RISK ANALYST Cynthia Rockwell APRN, C.N.P. LAB BLOOD ADD-ON Performing Organization Address City/State/ZIP Code Phon e Number [facility] [address] [place] [address] LAB documented in this encounter Visit Diagnoses Diagnosis Sinusitis Acute Maxillary - Primary Arthritis Rheumatoid (HCC) Hypothyroidism Acquired High Risk Medication Screening Lipid Namibian Language Deficit - Primary General Medical Examination Adult Hypothyroidism Acquired Arthritis Rheumatoid (HCC) High Risk Medication History Of Falling Encounter For COVID-19 Vaccine Immunizat ion Need Vaccine Immunization Influenza Encounter For Other Screening For Malign ant Neoplasm Of Breast documented in this encounter Care Teams Tobacco Drummer Relationship Specialty Start Date End Date Cynthia Rockwell APRN, C.N.P. PCP - General 08/16/[address] [place] [address] documented as of this encounter
--- OUTSIDE RECORDS SUMMARY | 2022-01-21 23:26 | XMS_ITS | Encounter Summary ---
:1955 Author Organization [facility] Address [address] [place] [address] Care Team Providers Name Role Phone Cynthia Rockwell APRN, C.N.P. Primary Care Provider Encounter Details Date Type Department Care Team Description 03/07/2017 Orders Only Department of Family Cynthia Rockwell APR N, Medicine, [facility], C.N. P. in [facility] [address] [facility] [place] [address] [place] [address] [phone] Social History Tobacco Use Types Packs/Day Years [...] or relatives? How often do you attend muslim or 1 to 4 times per year 09/01 uatsdin services? Do you belong to any clubs or No 09/18/2018 organizations such as muslim groups, unions, fraternal or athletic groups, or [...] Rockwell A PRN, C.N.P. [address] [place], [place] [phone] (Wo rk) documented as of this encounter Visit Diagnoses Not on filedocumented in this encounter Care Teams Sheet Rock Taper Helper Relationship Specialty Start Date End Date Cynthia Rockwell APRN, C.N.P. PCP - General [address], [place] [address] documented as of this encounter
--- OUTSIDE RECORDS SUMMARY | 2022-01-21 23:26 | XMS_ITS | Encounter Summary ---
:1955 Author Organization [facility] Address [address] [place] [address] Care Team Providers Name Role Phone Cynthia Rockwell APRN, C.N.P. Primary Care Provider Encounter Details Date Type Department Care Team Description 02/05/2017 Orders Only Department of Family Cynthia Rockwell Hyp othyroidism (Primary Dx); Medicine, [place] SOHAN C.N.P. Screening Mammogram Average Risk Patient Clinic, in [place], [address] [place] [address] [place], [place] [phone] [address] (Work) [phone] Social History Tobacco Use Types Packs/Day Years [...] Cynthia Rockwell A PRN, C.N.P. [address] [place] [phone] (Wo rk) documented as of this encounter Results BI Breast Screening Bilateral (01/08/2018 10:41 AM NURSE ESTHETICIAN) Anatomical Region Laterality Modality Breast, Breast Imaging RST LOS, Breast Imaging ARZ LOS, [address] Bilateral Mammography Imaging FLA LOS Specimen (Source) Anatomical Collection Method Collection Time Re ceived Time Location / / Volume Laterality 01/08/2018 2:07 PM NURSE ESTHETICIAN Impressions 01/08/2018 2:08 PM NURSE ESTHETICIAN IMPRESSION: ??Negative. RECOMMENDATION: ??Annual Screening Mammo gram ASSESSMENT: ??BI-RADS: 1: Negative. Narrative 01/08/2018 2:08 PM NURSE ESTHETICIAN EXAM: ??BI BREAST SCREENING BILATERAL Current study [...] in this encounter Visit Diagnoses Diagnosis Hypothyroidism - Primary Screening Mammogram Average Risk Patient Screening Mammogram Average Risk Patient [place] Language Deficit - Primary General Medical Examination Adult Hypothyroidism Acquired Arthritis Rheumatoid (HCC) High Risk Medication History Of Falling Encounter For COVID-19 Vaccine Immunizat ion Need Vaccine Immunization Influenza Encounter For Other Screening For Malign ant Neoplasm Of Breast documented in this encounter Care Teams General Internist Relationship Specialty Start Date End Date Cynthia Rockwell, SOHAN, C.N.P. PCP - General 08/16/16 [address], [place] [address] documented as of this encounter
--- OUTSIDE RECORDS SUMMARY | 2022-01-21 23:27 | XMS_ITS | Encounter Summary ---
:1955 Author Organization [facility] Address [address] [place] [address] Care Team Providers Name Role Phone Unavailable Primary Care Provider Unavailable Encounter Details Date Type Department Care Team Description 03/16/2014 Hospital Encounter [facility]X [facility] LAB Cynthia Rockwell A PRN, C.N.P. [address] [place], [place] [phone] (Wo rk) Social History [...] - - Height 158 cm (5' 2.21) 03/16/2014 8:24 AM POOL TABLE MECHANIC Body Mass Index - - documented in this encounter Medications at Time of Discharge Medication Sig Dispensed Refills Start Date End Date CALCIUM CARB/VIT Take by mouth 2 0 06/27/2011 D3/MINERALS (two) times a day. (CALCIUM-VITAMIN D ORAL) folic acid 1 mg tablet Take 1 tablet by 0 012 11/14/2017 mouth daily. leflunomide (ARAVA) 20 mg Take 1 tablet by 0 03/0608/02/2017 tablet mouth daily. methotrexate 2.5 mg Take 8 tablets by 0 0 11/14/2017 tablet mouth once a week. predniSONE Take by mouth daily. 0 10/09/201111/02 (for_DELTASONE) 5 mg tablet documented as of this encounter Plan of Treatment Upcoming Encounters Date Type Specialty Care Team Description 02/01/2022 Comprehensive Visit Family Medicine Cynthia Rockwell A PRN, C.N.P. [address] [phone] (Wo rk) documented as of this encounter Procedures Procedure Name Priority Date/Time Associated Comments Diagnosis AUTOMATED DIFFERENTIAL, Routine 03/16/2014 8:38 R esults for this B AM POOL TABLE MECHANIC procedure are i n the results section. CBC WITH DIFFERENTIAL, B Routine 03/16/2014 8:38 Results for this AM POOL TABLE MECHANIC procedure are i n the results section. ASPARTATE Routine 03/16/2014 8:38 Results for this AMINOTRANSFERASE (AST), AM POOL TABLE MECHANIC proc edure are in S/P the results section. CREATININE WITH EGFR, Routine 03/16/2014 8:38 Res ults for this S/P AM POOL TABLE MECHANIC procedure are i n the results section. documented in this encounter Results Automated Differential (03/16/2014 8:38 AM POOL TABLE MECHANIC) P athologist Signature Absolute 3.50 1.70 - POWERCHART Neutrophils 7.00 109L Lymphocytes 0.96 0.90 - POWERCHART 2.90 X109L Monocytes 0.49 0.30 - POWERCHART 0.90 X109L Eosinophils 0.07 0.05 - POWERCHART 0.50 X109L Absolute 0.01 0.00 - POWERCHART Basophil 0.30 X109L Specimen Anatomical Collection Method Collection Time Receive d Time (Source) Location / / Volume Laterality Blood 03/16/2014 8:38 AM 201 5 8:38 POOL TABLE MECHANIC AM POOL TABLE MECHANIC Cynthia Rockwell APRN C.N.P. LAB BLOOD ADD-ON Performing Organization Address City/State/ZIP Code Phon e Number POWERCHART CBC with Differential (03/16/2014 8:38 AM POOL TABLE MECHANIC) P athologist Signature Leukocytes 5.0 3.4 - 10.5 POWERCHART X109L Erythrocytes 4.43 3.90 - POWERCHART 5.03 [id number] Hemoglobin 13.0 12.0 - POWERCHART 15.5 GDL Hematocrit 40.6 34.9 - POWERCHART 44.5 MCV 91.6 82.0 - POWERCHART 98.0 FL Platelet Count 178 150 - 450 POWERCHART X109L HX RDW 14.0 11.9 - POWERCHART 15.5 HXDifferential? Auto POWERCHART Specimen (Source) Anatomical Collection Method Collection Time Re ceived Time Location / / Volume Laterality Blood 03/16/2014 8:38 AM POOL TABLE MECHANIC Cynthia Rockwell APRN C.N.P. LAB BLOOD ADD-ON Performing Organization Address City/[facility]/ZIP Code Phon e Number POWERCHART (ABNORMAL) Creatinine with eGFR (03/16/2014 8:38 AM POOL TABLE MECHANIC) P athologist Signature Creatinine 0.6 (L) 0.7 - 1.2 POWERCHART MGDL HXeGFR (MDRD) >60 MLMIN POWERCHART eGFR >60 >=60 POWERCHART Black/ [id number] Cameroonian Specimen (Source) Anatomical Collection Method Collection Time Re ceived Time Location / / Volume Laterality Blood 03/16/2014 8:38 AM POOL TABLE MECHANIC Cynthia Rockwell APRN, C.N.P. LAB BLOOD ADD-ON Performing Organization Address City/State/ZIP Code Phon e Number POWERCHART AST (Aspartate Aminotransferase) (03/16/2014 8:38 AM POOL TABLE MECHANIC) Patholo gist Method Time Signature Aspartate 19 8 - 43 POWERCHART Aminotransferase UNITL (AST), S Specimen (Source) Anatomical Collection Method Collection Time Re ceived Time Location / / Volume Laterality Blood 03/16/2014 8:38 AM POOL TABLE MECHANIC Cynthia Rockwell APRN C.N.P. LAB BLOOD ADD-ON Performing Organization Address City/State/ZIP Code Phon e Number POWERCHART documented in this encounter Visit Diagnoses Not on filedocumented in this encounter
--- OUTSIDE RECORDS SUMMARY | 2022-01-21 23:27 | XMS_ITS | Encounter Summary ---
:1955 Author Organization [facility] Address [address] [place] [address] Care Team Providers Name Role Phone Unavailable Primary Care Provider Unavailable Encounter Details Date Type Department Care Team Description 01/04/2015 Hospital Encounter HX [facility] Cynthia Rodriguez, WORKFORCE MANAGEMENT MANAGER, C.N.P. [address] [place], [place] [phone] (Wo rk) Social History [...] 1 to 4 times per year 09/01 sikhism services? Do you belong to any clubs [...] - - Height 158 cm (5' 2.21) 01/04/2015 2:01 PM CONCRETE SMOOTHER Body Mass Index - - documented in [...] Family Medicine Cynthia Rockwell, Kuldip PRN, C.N.P. [address] [phone] (Wo rk) documented as of this encounter Procedures Procedure Name Priority Date/Time Associated Diagnosis Comme [facility] BI BREAST SCREENING Routine 01/04/2015 2:42 PM Re sults for this BILATERAL CONCRETE SMOOTHER procedure are i n the results section. documented in this encounter Results BI Breast Screening Bilateral (01/04/2015 2:42 PM CONCRETE SMOOTHER) Anatomical Region Laterality Modality Breast Bilateral Mammography Specimen (Source) Anatomical Collection Method Collection Time Re ceived Time Location / / Volume Laterality 01/04/2015 2:42 PM CONCRETE SMOOTHER Impressions 01/05/2015 8:43 AM CONCRETE SMOOTHER No mammographic findings for malignancy in either [...] on the digital mammogram im ages. Narrative 01/05/2015 8:43 AM CONCRETE SMOOTHER EXAM: [place] Mammo Screening w/ CADD INDICATION: screen COMPARISON: 01/28/2013, 10/09/2011, 011, 07/18/2009, 06/22/2008 FINDINGS: Scattered fibroglandular densi ties both breasts. Procedure Note Kevin Pereyra M.D. / Provider, Ziggy arnold M.D. - 07/12/2016 EXAM: [place] Mammo Screening w/ CADD INDICATION: screen COMPARISON: 01/28/2013, 10/09/2011, 011, 07/18/2009, 06/22/2008 FINDINGS: Scattered fibroglandular densi ties both breasts. [...] performed on the digital mammogram im ages. Laly Maza(R), RSheltonTShelton(R)(M) IMG BI PROCEDURES documented in this encounter Visit Diagnoses Not on filedocumented in this encounter
--- OUTSIDE RECORDS SUMMARY | 2022-01-21 23:27 | XMS_ITS | Encounter Summary ---
:1955 Author Organization [facility] Address [address] [place] [address] Care Team Providers Name Role Phone Unavailable Primary Care Provider Unavailable Encounter Details Date Type Department Care Team Description 03/15/2015 Hospital Encounter HX [facility] LAB Tin Schmidt A PRN, C.N.P. [address] [place], [place] [phone] (Wo rk) Social History [...] - - Height 158 cm (5' 2.21) 03/15/2015 9:04 AM PUBLIC HEALTH TECHNICIAN Body Mass Index - - documented in [...] 03/0608/02/2017 tablet mouth daily. methotrexate 2.5 mg tablet Take 8 tablets by 0 11/14/2017 mouth once a week. predniSONE (for_DELTASONE) Take by mouth 0 201111/14/2017 5 mg tablet daily. documented as of this encounter Miscellaneous Notes Miscellaneous - Tin Schmidt APRN, C.N.P. - 03/15/2015 12:53 PM PUBLIC HEALTH TECHNICIAN Addendum by TORITO MEZA LPN on 15 March 2015 14:07:58 PUBLIC HEALTH TECHNICIAN Labs faxed to [facility] by labs. From: TIN SCHMIDT MULTIPLE DRILL OPERATOR To: MOSHE Schmidt Nurse; Sent: 03/15/2015 12:53:24 PUBLIC HEALTH TECHNICIAN Please check with lab to make sure results are faxed to [facility]. Source: [facility] POWERCHART Document Id: [id number] Electronically signed by Conversion, [facility] Sewage Screen Operator [id number] at 07/28/2016 10:33 AM CDT documented in this encounter Plan of Treatment Upcoming Encounters Date Type Specialty Care Team Description 02/01/2022 Comprehensive Visit Family Medicine Tin Schmidt, Kuldip EUBANKS, C.N.P. [address] [phone] (Wo rk) documented as of this encounter Procedures Procedure Name Priority Date/Time Associated Comments Diagnosis AUTOMATED DIFFERENTIAL, Routine 03/15/2015 9:41 R esults for this B AM PUBLIC HEALTH TECHNICIAN procedure are i n the results section. CBC WITH DIFFERENTIAL, B Routine 03/15/2015 9:41 Results for this AM PUBLIC HEALTH TECHNICIAN procedure are i n the results section. ASPARTATE Routine 03/15/2015 9:41 Results for this AMINOTRANSFERASE (AST), AM PUBLIC HEALTH TECHNICIAN proc edure are in S/P the results section. BASIC METABOLIC PANEL, Routine 03/15/2015 9:41 Re sults for this S/P AM PUBLIC HEALTH TECHNICIAN procedure are i n the results section. documented in this encounter Results (ABNORMAL) Automated Differential (03/15/2015 9:41 AM PUBLIC HEALTH TECHNICIAN) Patholo gist Method Time Signature Absolute 1.18 (L) 1.70 - POWERCHART Neutrophils 7.00 109L Lymphocytes 1.21 0.90 - POWERCHART 2.90 X109L Monocytes 0.34 0.30 - POWERCHART 0.90 X109L Eosinophils 0.14 0.05 - POWERCHART 0.50 X109L Absolute 0.01 0.00 - POWERCHART Basophil 0.30 X109L Specimen Anatomical Collection Method Collection Time Receive d Time (Source) Location / / Volume Laterality Blood 03/15/2015 9:41 AM 6 9:41 PUBLIC HEALTH TECHNICIAN AM PUBLIC HEALTH TECHNICIAN Tin Schmidt APRN C.N.P. LAB BLOOD ADD-ON Performing Organization Address City/State/ZIP Code Phon e Number POWERCHART (ABNORMAL) CBC with Differential (03/15/2015 9:41 AM PUBLIC HEALTH TECHNICIAN) P athologist Signature Leukocytes 2.9 (L) 3.4 - 10.5 POWERCHART X109L Erythrocytes 4.29 3.90 - POWERCHART 5.03 [id number] Hemoglobin 12.0 12.0 - POWERCHART 15.5 GDL Hematocrit 38.5 34.9 - POWERCHART 44.5 MCV 89.7 82.0 - POWERCHART 98.0 FL HX RDW 13.8 11.9 - POWERCHART 15.5 Platelet Count 194 150 - 450 POWERCHART X109L Specimen (Source) Anatomical Collection Method Collection Time Re ceived Time Location / / Volume Laterality Blood 03/15/2015 9:41 AM PUBLIC HEALTH TECHNICIAN Tin Schmidt APRN C.N.P. LAB BLOOD ADD-ON Performing Organization Address City/State/ZIP Code Phon e Number POWERCHART (ABNORMAL) BMP (Basic Metabolic Panel) (03/15/2015 9:41 AM PUBLIC HEALTH TECHNICIAN) P athologist Signature Anion Gap 10 7 - 15 POWERCHART MMOLL BUN (Blood Urea 10 6 - 21 POWERCHART Nitrogen), S MGDL Chloride, S 101 98 - 107 POWERCHART MMOLL CO2 Total 26 22 - 29 POWERCHART MMOLL Creatinine 0.6 0.6 - 1.1 POWERCHART MGDL Glucose, 103 (H) 70 - 99 POWERCHART Fasting, S MGDL Calcium, Total, 9.1 8.0 - 10.3 POWERCHART S MGDL Sodium, S 137 135 - 145 POWERCHART MMOLL Potassium, S 4.2 3.6 - 5.2 POWERCHART MMOLL HXeGFR (MDRD) >60 >=60 POWERCHART [id number] eGFR >60 >=60 POWERCHART Black/ [id number] Thai Specimen (Source) Anatomical Collection Method Collection Time Re ceived Time Location / / Volume Laterality Blood 03/15/2015 9:41 AM PUBLIC HEALTH TECHNICIAN Tin Schmidt APRN CSheltonN.P. LAB BLOOD ADD-ON Performing Organization Address City/State/ZIP Code Phon e Number POWERCHART AST (Aspartate Aminotransferase) (03/15/2015 9:41 AM PUBLIC HEALTH TECHNICIAN) Patholo gist Method Time Signature Aspartate 20 8 - 43 POWERCHART Aminotransferase UNITL (AST), S Specimen (Source) Anatomical Collection Method Collection Time Re ceived Time Location / / Volume Laterality Blood 03/15/2015 9:41 AM PUBLIC HEALTH TECHNICIAN Tin Schmitd APRN, C.N.P. LAB BLOOD ADD-ON Performing Organization Address City/State/ZIP Code Phon e Number POWERCHART documented in this encounter Visit Diagnoses Not on filedocumented in this encounter
--- OUTSIDE RECORDS SUMMARY | 2022-01-21 23:27 | XMS_ITS | Encounter Summary ---
:1955 Author Organization [facility] Address [address] [place] [address] Care Team Providers Name Role Phone Unavailable Primary Care Provider Unavailable Encounter Details Date Type Department Care Team Description 10/25/2015 Hospital Encounter HX [facility] LAB Cynthia Rockwell A PRN, C.N.P. [address] [place], [place] [phone] (Wo rk) Social History [...] - - Height 158 cm (5' 2.21) 10/25/2015 11:13 AM CDT Body Mass Index - - [...] Medicine Cynthia Rockwell, Kuldip PRN, C.N.P. [address] [phone] (Wo rk) documented as of this encounter Procedures Procedure Name Priority Date/Time Associated Comments Diagnosis THYROPEROXIDASE (TPO) Routine 10/25/2015 11:45 Re sults for this ABS, S AM CDT procedure are i n the results section. THYROGLOBULIN AB, S Routine 10/25/2015 11:45 Resu lts for this AM CDT procedure are i n the results section. THYROID-STIMULATING Routine 10/25/2015 11:45 Resu lts for this HORMONE-SENSITIVE AM CDT procedure are in (S-TSH) the results section. documented in this encounter Results Thyroglobulin Antibody (10/25/2015 11:45 AM CDT) [facility] Method Time Signature Thyroglobulin <1.8 <4.0 INTUML POWERCHART Antibody, S Comment: ADDITIONAL INFORMATIO N The thyroglobulin antibody testing metho d is an immunoenzymatic assay manufactured by [employer]. and performed on the [employer] DXI 800. Values obtained from different assay met hods or kits may be different and cannot be used inte rchangeably. The results cannot be interpreted as abs olute evidence for the presence or absence of malignant disease. Test Performed by: [place] [address] Metallic Yarn Slitting Machine Operator: Ciaran Dumont II, M.D., Ph.D. Specimen (Source) Anatomical Collection Method Collection Time Re ceived Time Location / / Volume Laterality Blood 10/25/2015 11:45 AM CDT Deepak Cervantes M.D. LAB BLOOD NON ADD-ON Performing Organization Address City/[facility]/[place] Code Phon e Number POWERCHART Thyroperoxidase (TPO) Antibodies (10/25/2015 11:45 AM CDT) Patholo gist Method Time Signature Thyroperoxidase Ab, 1.8 <9.0 POWERCHART S INTUML Comment: Test Performed by: [place] [id number] Metallic Yarn Slitting Machine Operator: Ciaran Dumont II, M.D., Ph.D. Specimen (Source) Anatomical Collection Method Collection Time Re ceived Time Location / / Volume Laterality Blood 10/25/2015 11:45 AM CDT Deepak Cervantes M.D. LAB BLOOD ADD-ON Performing Organization Address City/[facility]/[place] Code Phon e Number POWERCHART Thyroid-Stimulating Hormone-Sensitive (s-TSH) (10/25/2015 11:45 AM CDT) P athologist Signature TSH 1.30 0.27 - 4.20 POWERCHART (Thyrotropin) MIUL Comment: [...] Time Location / / Volume Laterality Blood 10/25/2015 11:45 AM CDT Deepak Cervantes M.D. LAB BLOOD ADD-ON Performing Organization Address City/State/ZIP Code Phon e Number POWERCHART documented in this encounter Visit Diagnoses Not on filedocumented in this encounter
--- OUTSIDE RECORDS SUMMARY | 2022-01-21 23:27 | XMS_ITS | Encounter Summary ---
:1955 Author Organization [facility] Address [address] [place] [address] Care Team Providers Name Role Phone Unavailable Primary Care Provider Unavailable Encounter Details Date Type Department Care Team Description 07/08/2014 Hospital Encounter [facility] Perry Arana A PRN, C.N.P. [address] [place], [place] [phone] (Wo rk) Social History [...] - - Height 158 cm (5' 2.21) 07/08/2014 9:49 AM CDT Body Mass Index - - [...] 02/01/2022 Comprehensive Visit Family Medicine Cynthia Rockwell, Kuldpi PRN, C.N.P. [address] [phone] (Wo rk) documented as of this encounter Procedures Procedure Name Priority Date/Time Associated Comments Diagnosis AUTOMATED DIFFERENTIAL, Routine 07/08/2014 9:57 R esults for this B AM CDT procedure are i n the results section. SEDIMENTATION RATE, B Routine 07/08/2014 9:57 Res ults for this AM CDT procedure are i n the results section. CBC WITH DIFFERENTIAL, B Routine 07/08/2014 9:57 Results for this AM CDT procedure are i n the results section. C-REACTIVE PROTEIN Routine 07/08/2014 9:57 Result s for this (CRP), S/P AM CDT procedure are i n the results section. ASPARTATE Routine 07/08/2014 9:57 Results for this AMINOTRANSFERASE (AST), AM CDT proc edure are in S/P the results section. CREATININE WITH EGFR, Routine 07/08/2014 9:57 Res ults for this S/P AM CDT procedure are i n the results section. documented in this encounter Results Automated Differential (07/08/2014 9:57 AM CDT) athologist Signature Absolute 2.45 1.70 - POWERCHART Neutrophils 7.00 109L Lymphocytes 0.99 0.90 - POWERCHART 2.90 X109L Monocytes 0.48 0.30 - POWERCHART 0.90 X109L Eosinophils 0.19 0.05 - POWERCHART 0.50 X109L Absolute 0.02 0.00 - POWERCHART Basophil 0.30 X109L Specimen Anatomical Collection Method Collection Time Receive d Time (Source) Location / / Volume Laterality Blood 07/08/2014 9:57 AM 5 9:57 CDT AM CDT Perry Arana APRN, C.N.P. LAB BLOOD ADD-ON Performing Organization Address City/State/ZIP Code Phon e Number POWERCHART (ABNORMAL) Sedimentation Rate (07/08/2014 9:57 AM CDT) [facility] gist Method Time Signature Sedimentation 32 (H) 0 - 29 POWERCHART Rate, B MMHR Specimen (Source) Anatomical Collection Method Collection Time Re ceived Time Location / / Volume Laterality Blood 07/08/2014 9:57 AM CDT Perry Arana APRN, C.N.P. LAB BLOOD ADD-ON Performing Organization Address City/State/ZIP Code Phon e Number POWERCHART (ABNORMAL) CBC with Differential (07/08/2014 9:57 AM CDT) Analysis Performed [facility] logist Time Signature Leukocytes 4.1 3.4 - 10.5 POWERCHART X109L Erythrocytes 4.23 3.90 - POWERCHART 5.03 [id number] Hemoglobin 11.9 (L) 12.0 - POWERCHART 15.5 GDL Hematocrit 37.5 34.9 - POWERCHART 44.5 MCV 88.7 82.0 - POWERCHART 98.0 FL HX RDW 14.0 11.9 - POWERCHART 15.5 Platelet Count 177 150 - 450 POWERCHART X109L Specimen (Source) Anatomical Collection Method Collection Time Re ceived Time Location / / Volume Laterality Blood 07/08/2014 9:57 AM CDT Perry Arana APRN, C.N.P. LAB BLOOD ADD-ON Performing Organization Address City/State/ZIP Code Phon e Number POWERCHART Creatinine with eGFR (07/08/2014 9:57 AM CDT) athologist Signature Creatinine 0.7 0.6 - 1.1 POWERCHART MGDL HXeGFR (MDRD) >60 >=60 POWERCHART [id number] eGFR >60 >=60 POWERCHART Black/ [id number] Cypriot Specimen (Source) Anatomical Collection Method Collection Time Re ceived Time Location / / Volume Laterality Blood 07/08/2014 9:57 AM CDT Perry Arana APRN, C.N.P. LAB BLOOD ADD-ON Performing Organization Address City/[facility] Code Phon e Number POWERCHART (ABNORMAL) CRP (C-Reactive Protein) (07/08/2014 9:57 AM CDT) athologist Signature C-Reactive 16.6 (H) <=5.0 MGL POWERCHART Protein (CRP), S Specimen (Source) Anatomical Collection Method Collection Time Re ceived Time Location / / Volume Laterality Blood 07/08/2014 9:57 AM CDT Perry Arana APRN, C.N.P. LAB BLOOD ADD-ON Performing Organization Address City/[facility] Code Phon e Number POWERCHART AST (Aspartate Aminotransferase) (07/08/2014 9:57 AM CDT) [facility] gist Method Time Signature Aspartate 16 8 - 43 POWERCHART Aminotransferase UNITL (AST), S Specimen (Source) Anatomical Collection Method Collection Time Re ceived Time Location / / Volume Laterality Blood 07/08/2014 9:57 AM CDT Perry Arana APRN, C.N.P. LAB BLOOD ADD-ON Performing Organization Address City/[facility] Code Phon e Number POWERCHART documented in this encounter Visit Diagnoses Not on filedocumented in this encounter
--- OUTSIDE RECORDS SUMMARY | 2022-01-21 23:27 | XMS_ITS | Encounter Summary ---
:1955 Author Organization [facility] Address [address] [place] [address] Care Team Providers Name Role Phone Unavailable Primary Care Provider Unavailable Encounter Details Date Type Department Care Team Description 11/25/2015 Hospital Encounter HX [facility] Latrice Kebede M.D. [address] [facility], [address] [place], [place] [address] (Wo rk) Social History Tobacco Use Types [...] 1 to 4 times per year 09/01 evangelical services? Do you belong to any clubs [...] Sign Reading Time Taken Comments Blood Pressure 86/52 11/25/2015 11:10 AM CDT Pulse 64 11/25/2015 11:10 AM CDT Temperature - - Respiratory Rate 16 11/25/2015 11:10 AM CDT Oxygen Saturation - - Inhaled Oxygen Concentration - - Weight 69.5 kg (153 lb 3.5 oz) 11/25/2015 11:10 AM CDT Height 158 cm (5' 2.21) 11/25/2015 11:10 AM CDT Body Mass Index 27.84 11/25/2015 11:10 AM CDT documented in this encounter Medications [...] documented as of this encounter Progress Notes Denis Kebede M.D. - 11/25/2015 11:25 AM CDT Clinic Full Note CHIEF COMPLAINT/REASON FOR VISIT spot on the left leg that comes and goes. burning sensation when laying on it. First started 3 years ago. Usually on the right side, but is now on both the right and left thigh. HISTORY OF PRESENT ILLNESS She is here today with her daughter, and the help of a phone corporate development analyst, for a rash on her upper outer thighs that comes and goes. She has a burning sensation when she lays on the floor. She has a history of rheumatoid arthritis and is on methotrexate for that. She describes having pain off and on throughout her body and swelling. She has some nodules on the right hand and left lateral foot. Sometimes these have been around her elbows, although she is wondering what she could do about these nodules in general MEDICATIONS acetaminophen 325 mg oral tablet, 650 mg, 2 tab(s), PO, q4hr, PRN, 1 refills Arava 20 mg oral tablet, 20 mg, 1 tab(s), PO, Daily Calcium 600+D, 1 tab, PO, 2xDay folic acid 1 mg oral tablet, 1 mg, 1 tab(s), PO, Daily Levoxyl 75 mcg (0.075 mg) oral tablet, 75 mcg, 1 tab(s), PO, Daily, 11 refills meclizine 25 mg oral tablet, 25 mg, 1 tab(s), PO, 3xDay, PRN, 1 refills, * methotrexate 2.5 mg oral tablet, 12.5 mg, 5 tab(s), on Saturday night, PO, Weekly Plaquenil Sulfate 200 mg oral tablet, 400 mg, 2 tab(s), PO, Bedtime, * predniSONE 5 mg oral tablet, 10 mg, 2 tab(s), PO, Daily ranitidine 150 mg oral tablet, 150 mg, 1 tab(s), PO, 2xDay, 3 refills Senokot Extra 8.6 mg oral tablet, 17.2 mg, 2 tab(s), PO, 2xDay, PRN, * * indicates non-compliance ALLERGIES NKA PAST MEDICAL HISTORY Chronic Arthritis [...] Pap smear (05/29/2006). SOCIAL HISTORY Date Time: 11/25/2015 11:10 Tobacco: Smoking Status: Never smoker Exposure: Other: never Alcohol: Use: No Results Found Recreational Drugs: Use: None Type: No Results Found FAMILY HISTORY Sister: Negative: Brother: Negative: Brother:Positive: GERD - Gastro-esophageal reflux disease SYSTEMS REVIEW See HPI for pertinent positives- VITAL SIGNS T: 36.9 ??C (Core) HR: 64 RR: 16 BP: 86 / 52 HT: 158 cm WT: 69.5 kg BMI: 27.84 PHYSICAL EXAMINATION General- No Acute Distress Musculoskeletal exam: Over the right third PIP, right second MCP, and left lateral foot there are no rheumatoid nodules. SKIN: Exam: She has some hyperpigmented areas of likely postinflammatory hyperpigmentation on the legs. Her skin is quite dry. IMPRESSION/REPORT/PLAN Arthritis Rheumatoid I advised her to speak with the learning technologies specialist regarding what could be done with her rheumatoid nodules. Dry Skin 1. Moisturize arms/legs/hands 2x daily with good unscented moisturizer like Vanicream or Vanicream Lite. Lubriderm is another option. Ordered: OV Est Pt Level 3 - 36177 - 15 min Electronically Signed By: DENIS KEBEDE MD On: 11/25/2015 01:31 PM [facility]: [facility] POWERCHART Document Id: [id number] documented in this encounter Miscellaneous Notes Miscellaneous - Denis Kebede M.D. - 11/25/2015 1:30 PM CDT Ambulatory Patient Summary [address] [id number] Visit Information Name: ALTHEA ARIAS [facility] Number: [id number] Current Date: 11/25/2015 13:30:46 Physicians Attending Provider: DENIS KEBEDE MD Primary Care Provider: TIN SCHMIDT APRN RAIL ASSEMBLER ALTHEA ARIAS has been given the following [...] tablet) 2 Tablet(s), Oral, once a day ranitidine (ranitidine 150 mg oral tablet) 1 Tablet(s), Oral, two times a day Stop Taking the Following Medications: hydroxychloroquine (Plaquenil Sulfate 200 mg oral tablet) meclizine (meclizine 25 mg oral tablet) senna (Senokot Extra 8.6 mg oral tablet) Medication list as of 11-25-15 13:30 Attention: If you have any medications at home that are not on this list, DO NOT take them until youcontact your provider for clarification. Give a copy of your medication list to your primary care provider. Update your medication list any time medications or doses are changed and carry your medication list at all times in case of emergency. Electronically Signed By: DENIS KEBEDE MD Signed On:25-NOV-2015 11:38:53 Your Allergies & Intolerances Substance Reaction Symptoms [...] local Clinic if further appointment detail needed. Consider Using Patient Online Services Patient Online [...] if you dont have one. Go to [email or web address] and click on Create Your Account. Then, follow the directions to complete the online form. Youll be asked for your [facility] number which you can find at the top of this document. Your Goals/Additional instructions: Source: [facility] POWERCHART Document Id: [id number] Miscellaneous - Denis Kebede M.D. - 11/25/2015 1:30 PM CDT Ambulatory Discharge Medication List [address] [id number] Visit Information Name: CRISTA ARIASUMO Kuldip [facility] Number: [id number] Visit Date: 11/25/2015 13:30:45 Attending Provider: DENIS KEBEDE MD Primary Care Provider: TIN SCHMIDT APRN RAIL ASSEMBLER ARIASALTHEA has been given the following list of [...] tablet) 2 Tablet(s), Oral, once a day ranitidine (ranitidine 150 mg oral tablet) 1 Tablet(s), Oral, two times a day Stop Taking the Following Medications: hydroxychloroquine (Plaquenil Sulfate 200 mg oral tablet) meclizine (meclizine 25 mg oral tablet) senna (Senokot Extra 8.6 mg oral tablet) Medication list as of 11-25-15 13:30 Attention: If you have any medications at home that are not on this list, DO NOT take them until youcontact your provider for clarification. Give a copy of your medication list to your primary care provider. Update your medication list any time medications or doses are changed and carry your medication list at all times in case of emergency. Electronically Signed By: DENIS KEBEDE MD Signed On:25-NOV-2015 11:38:53 Additional Information: 1. Moisturize arms/legs/hands 2x daily with good unscented moisturizer like Vanicream or Vanicream Lite. Lubriderm is another option. Source: [facility] POWERCHART Document Id: [id number] Miscellaneous - Penelope Naidu, L.P.N. - 11/25/2015 11:10 AM CDT Adult Wind Operations Manager Intake/History Adult Wind Operations Manager Intake/History Entered On: 11/25/2015 11:19 CDT Performed On: 11/25/2015 11:10 CDT by PENELOPE NAIDU [employer] Intake Chief Complaint : spot on the left leg that comes and goes. burning sensation when laying on it. First started 3 years ago. Usually on the right side, but is now on both the right and left thigh. Temperature Core : 36.9 DegC(Converted to: 98.4 DegF) Peripheral Pulse Rate : 64 /min Respiratory Rate : 16 /min Systolic Blood Pressure : 86 mmHg (<LLOW) Diastolic Blood Pressure : 52 mmHg NIBP Mean : 63 mmHg BP Location : Right upper extremity Blood Pressure Cuff Size : Regular Height : 158 cm(Converted to: 5 ft 2 inch(es), 62 inch(es)) Actual Weight : 69.5 kg(Converted to: 153 lb 4 oz) Weight Source : Standing scale Dosing Weight Clinic : 69.5 kg Clinic BSA : 1.75 Body Mass Index : 27.84 kg/m2 [facility]ENELOPE NAIDU [facility] 11/25/2015 11:10 CDT General Info Information Given By : Patient Languages : Ana Is Patient Female and 13-50 no hysterectomy : No PENELOPE NAIDU [facility] 11/25/2015 11:10 CDT Subjective Pain Symptoms : Yes PENELOPE NAIDU [facility] - 11/25/2015 11:10 CDT Pain Scale Pain Scale Verbal 0-10 : Open PENELOPE NAIDU [facility] 11/25/2015 11:10 CDT Pain Pain Assessment Grid Pain 1 Location : Other: body aches. PENELOPE NAIDU [facility] 11/25/2015 11:10 CDT Dependent Habits Exposure to Tobacco Smoke : Other: never Smoking Status : Never smoker Tobacco 2A : No Tobacco Use/Currently Using : No Tobacco Use/Last 30 Days : No Tobacco Use/Last 12 months : No PENELOPE NAIDU [facility] - 11/25/2015 11:10 CDT Caffeine Use Grid Caffeine Use : Current Type : Coffee, Tea Frequency : Daily PENELOPE NAIDU [facility] - 11/25/2015 11:10 CDT Recreational Drug Use Grid Drug Use : None [facility]ENELOPE NAIDU [facility] 11/25/2015 11:10 CDT Source: [facility] MelonCHART Document Id: [id number]!44 documented in this encounter Plan of Treatment Upcoming Encounters Date Type Specialty Care Team Description 02/01/2022 Comprehensive Visit Family Medicine Tin Schmidt, Kuldip PRN, C.N.P. [address] [place] [phone] (Wo rk) documented as of this encounter Visit Diagnoses Not on filedocumented in this encounter
--- OUTSIDE RECORDS SUMMARY | 2022-01-21 23:27 | XMS_ITS | Encounter Summary ---
:1955 Author Organization [facility] Address [address] [place] [address] Care Team Providers Name Role Phone Unavailable Primary Care Provider Unavailable Encounter Details Date Type Department Care Team Description 11/09/2014 Hospital Encounter HX [facility] Cynthia Rockwell A PRN, C.N.P. [address] [place], [place] [phone] (Wo rk) Social History [...] - - Height 158 cm (5' 2.21) 11/09/2014 12:14 PM CDT Body Mass Index - - [...] Medicine Cynthia Rockwell, Kuldip PRN, C.N.P. [address] [phone] (Wo rk) documented as of this encounter Procedures Procedure Name Priority Date/Time Associated Comments Diagnosis AUTOMATED DIFFERENTIAL, Routine 11/09/2014 12:18 Results for this B PM CDT procedure are i n the results section. SEDIMENTATION RATE, B Routine 11/09/2014 12:18 Re sults for this PM CDT procedure are i n the results section. CBC WITH DIFFERENTIAL, B Routine 11/09/2014 12:18 Results for this PM CDT procedure are i n the results section. C-REACTIVE PROTEIN Routine 11/09/2014 12:18 Resul ts for this (CRP), S/P PM CDT procedure are i n the results section. ASPARTATE Routine 11/09/2014 12:18 Results for this AMINOTRANSFERASE (AST), PM CDT proc edure are in S/P the results section. CREATININE WITH EGFR, Routine 11/09/2014 12:18 Re sults for this S/P PM CDT procedure are i n the results section. documented in this encounter Results Automated Differential (11/09/2014 12:18 PM CDT) athologist Signature Absolute 2.06 1.70 - POWERCHART Neutrophils 7.00 109L Lymphocytes 1.15 0.90 - POWERCHART 2.90 X109L Monocytes 0.47 0.30 - POWERCHART 0.90 X109L Eosinophils 0.15 0.05 - POWERCHART 0.50 X109L Absolute 0.01 0.00 - POWERCHART Basophil 0.30 X109L Specimen Anatomical Collection Method Collection Time Receive d Time (Source) Location / / Volume Laterality Blood 11/09/2014 12:18 11/09/2014 PM CDT 12:18 PM CDT Perry Arana APRN, C.N.P. LAB BLOOD ADD-ON Performing Organization Address City/State/ZIP Code Phon e Number POWERCHART (ABNORMAL) Sedimentation Rate (11/09/2014 12:18 PM CDT) [facility] gist Method Time Signature Sedimentation 36 (H) 0 - 29 POWERCHART Rate, B MMHR Specimen (Source) Anatomical Collection Method Collection Time Re ceived Time Location / / Volume Laterality Blood 11/09/2014 12:18 PM CDT Perry Arana APRN, C.N.P. LAB BLOOD ADD-ON Performing Organization Address City/State/ZIP Code Phon e Number POWERCHART CBC with Differential (11/09/2014 12:18 PM CDT) athologist Signature Leukocytes 3.8 3.4 - 10.5 POWERCHART X109L Erythrocytes 4.52 3.90 - 5.03 POWERCHART [id number] Hemoglobin 12.9 12.0 - 15.5 POWERCHART GDL Hematocrit 39.7 34.9 - 44.5 POWERCHART MCV 87.8 82.0 - 98.0 POWERCHART FL HX RDW 13.8 11.9 - 15.5 POWERCHART Platelet Count 201 150 - 450 POWERCHART X109L Specimen (Source) Anatomical Collection Method Collection Time Re ceived Time Location / / Volume Laterality Blood 11/09/2014 12:18 PM CDT Perry Arana APRN, C.N.P. LAB BLOOD ADD-ON Performing Organization Address City/State/ZIP Code Phon e Number POWERCHART Creatinine with eGFR (11/09/2014 12:18 PM CDT) athologist Signature Creatinine 0.6 0.6 - 1.1 POWERCHART MGDL HXeGFR (MDRD) >60 >=60 POWERCHART [id number] eGFR >60 >=60 POWERCHART Black/ [id number] Portuguese Specimen (Source) Anatomical Collection Method Collection Time Re ceived Time Location / / Volume Laterality Blood 11/09/2014 12:18 PM CDT Perry Arana APRN, C.N.P. LAB BLOOD ADD-ON Performing Organization Address City/[facility]/ZIP Code Phon e Number POWERCHART (ABNORMAL) CRP (C-Reactive Protein) (11/09/2014 12:18 PM CDT) athologist Signature C-Reactive 13.8 (H) <=5.0 MGL POWERCHART Protein (CRP), S Specimen (Source) Anatomical Collection Method Collection Time Re ceived Time Location / / Volume Laterality Blood 11/09/2014 12:18 PM CDT Perry Arana APRN, C.N.P. LAB BLOOD ADD-ON Performing Organization Address City/[facility] Code Phon e Number POWERCHART AST (Aspartate Aminotransferase) (11/09/2014 12:18 PM CDT) [facility] gist Method Time Signature Aspartate 19 8 - 43 POWERCHART Aminotransferase UNITL (AST), S Specimen (Source) Anatomical Collection Method Collection Time Re ceived Time Location / / Volume Laterality Blood 11/09/2014 12:18 PM CDT Perry Arana APRN, C.N.P. LAB BLOOD ADD-ON Performing Organization Address City/[facility] Code Phon e Number POWERCHART documented in this encounter Visit Diagnoses Not on filedocumented in this encounter
--- OUTSIDE RECORDS SUMMARY | 2022-01-21 23:27 | XMS_ITS | Encounter Summary ---
:1955 Author Organization [facility] Address [address] [place] [address] Care Team Providers Name Role Phone Unavailable Primary Care Provider Unavailable Encounter Details Date Type Department Care Team Description 05/30/2015 Hospital Encounter HX [facility] Tin Schmidt A PRN, C.N.P. [address] [place], [place] [phone] (Wo rk) Social History [...] - - Height 158 cm (5' 2.21) 05/30/2015 4:41 PM CDT Body Mass Index - - [...] Miscellaneous - Tin Schmidt APRN, C.N.P. - 05/31/2015 9:43 AM CDT Normal Results Letter May 31, 2015 [address] [id number] Dear ALTHEA ARIAS, I am pleased to report that your results from the following diagnostic test(s) are normal. Please follow up with us as we discussed during your visit or sooner if you have any concerns. If you have questions or concerns, please do not hesitate to call our office. Result Name Current Result Normal Range FIT/Fecal Occult Bld-[place] Negative 05/30/2015 Negative - Sincerely, TIN SCHMIDT [address] [place], [place] [id number] Electronic Signature Electronically Signed By: TIN SCHMIDT APRN SCHEDULING ADMINISTRATOR On: May 31, 2015 This document has images extracted. Source: [facility] POWERCHART Document Id: [id number] Electronically signed by Zaheer, [facility] Cloth Bleaching Range Tender [id number] at 07/28/2016 3:15 PM CDT documented in this encounter Plan of Treatment Upcoming Encounters Date Type Specialty Care Team Description 02/01/2022 Comprehensive Visit Family Medicine Tin Schmidt A PRN, C.N.P. [address] [phone] (Wo rk) documented as of this encounter Procedures Procedure Name Priority Date/Time Associated Diagnosis Comme nts OCCULT BLOOD, QL, Routine 05/30/2015 4:52 PM Resu lts for this IMMUNOCHEMICAL, F CDT procedure are in the results section. documented in this encounter Results Fecal Occult Blood, Colorectal Cancer Screen, Qualitative, Immunochemical (05/30/2015 4:52 PM CDT) athologist Signature Occult Blood, Negative Negative POWERCHART Fecal Comment: Negative result. ??This test will not de tect upper gastrointestinal bleeding; the HemoQuant test (9220)should be ordered if clinically indicated. Test Performed by: [place] [id number] Desktop Support Manager: Ciaran Dumont II, M.D., Ph.D. Specimen (Source) Anatomical Collection Method Collection Time Re ceived Time Location / / Volume Laterality Stool 05/30/2015 4:52 PM CDT Tin Schmidt APRN, C.N.P. LAB BODY FLUIDS AND STOOLS ORDERABLES Performing Organization Address City/State/ZIP Code Phon e Number POWERCHART documented in this encounter Visit Diagnoses Not on filedocumented in this encounter
--- OUTSIDE RECORDS SUMMARY | 2022-01-21 23:27 | XMS_ITS | Encounter Summary ---
:1955 Author Organization [facility] Address [address] [place] [address] Care Team Providers Name Role Phone Unavailable Primary Care Provider Unavailable Encounter Details Date Type Department Care Team Description 06/29/2014 Hospital Encounter HX [facility] FAMILY[facility] Kari Schmidt, CHILD CARE TEACHER, C.N.P. [address] [place] [address] (Wo rk) Social History Tobacco Use [...] or relatives? How often do you attend zoroastrianism or 1 to 4 times per year 09/01 catholic services? Do you belong to any clubs or No 09/18/2018 organizations such as zoroastrianism groups, unions, fraternal or athletic groups, or [...] Sign Reading Time Taken Comments Blood Pressure 110/68 06/29/2014 9:30 AM CDT Pulse 80 06/29/2014 9:30 AM CDT Temperature - - Respiratory Rate 16 06/29/2014 9:30 AM CDT Oxygen Saturation - - Inhaled Oxygen Concentration - - Weight 74.3 kg (163 lb 12.8 oz) 06/29/2014 9:30 AM CDT Height 158 cm (5' 2.21) 06/29/2014 9:30 AM CDT Body Mass Index 29.76 06/29/2014 9:30 AM CDT documented in this encounter Medications [...] mg tablet documented as of this encounter Progress Notes Tin Schmidt, SOHAN, C.N.P. - 06/29/2014 9:21 AM CDT [id number] CHIEF COMPLAINT/REASON FOR VISIT 1. Recheck post ER for L1 compression fracture. 2. Rheumatoid arthritis. HISTORY OF PRESENT ILLNESS Althea is here with her son, who is interpreting. She was in the emergency room on 06/27/2014 with low back pain after a fall at home. A CT scan showed a minimally displaced L1 compression fracture. She was given Vicodin and stool softener and told to recheck here. She states pain is improving. She isnow just using regular Tylenol and she needs refill. She has rheumatoid arthritis and follows at [place]. She is due for her kcyar-7-gudxy labs including CBC, creatinine and AST. She will have those drawntoday. She had to cancel her last appointment because of no transportation so her son is going to reschedule that as soon as she can and let them know about this recent compression fracture. She is on c hronic steroid therapy. MEDICATIONS See depart summary from today. ALLERGIES None. SYSTEMS REVIEW Positive for that mentioned in the history of present illness and noted in the past medical history in the EMR. All other systems were reviewed and were negative. PREVENTIVE Due for mammogram, colonoscopy, and declines being scheduled at this time. SOCIAL HISTORY She does not smoke. FAMILY HISTORY Reviewed per EMR on 06/29/2014. VITAL SIGNS See EMR. PHYSICAL EXAMINATION GENERAL: Well-developed, well-nourished female, in no acute distress. SKIN: Warm and dry. HEENT: TMs clear. Throat clear. NECK: Supple. No lymphadenopathy or thyromegaly. HEART: Regular rate and rhythm. S1, S2. No murmur. LUNGS: Clear to auscultation. ABDOMEN: Soft, nontender. No hepatosplenomegaly. EXTREMITIES: Warm, dry. No peripheral edema. SPINE: Limited range of motion of the lumbar spine. Tenderness to palpation. NEUROLOGIC: Deep tendon reflexes 2+ and symmetrical. Normal sensation in the toes. PERIPHERAL VESSELS: Good pedal pulses bilaterally. IMPRESSION/REPORT/PLAN 1. Minimally displaced L1 compression fracture. Continue with Tylenol every 4 hours as needed for pain. 2. Rheumatoid arthritis. Checking CBC, AST and creatinine. Those labs will be faxed to [facility] attention Perry Hankins CNP, fax number [phone]. The son will schedule recheck with Rheumatology as soon as possible. Tin Schmidt CNP/viet Electronically Signed By: TIN SCHMIDT CNP On: 06/30/2014 12:19 PM Source: [facility] MHSDOLBEYNONRADSYS Document Id: [id number] documented in this encounter Nursing Notes Gunjan Meza L.P.N. - 06/29/2014 1:22 PM CDT Results faxed to [facility] Faxed CBC and Chemistry Panel that was done on 06/29/14 to [facility] attention Perry Arana CNP at [phone] Electronically Signed By: GUNJAN MEZA LPN On: 06/29/2014 01:24 PM Source: [facility] POWERCHART Document Id: [id number] Tin Schmidt APRN, C.NSheltonP. - 06/29/2014 9:41 AM CDT Ambulatory Patient Education The following Patient Education Materials have been given to the patient: Patient Education Materials: Rheumatology Living with Rheumatoid Arthritis Rheumatology Living with Rheumatoid Arthritis Rheumatoid arthritis is an ongoing problem, but it doesnt have to keep you from being active. You can help control it with exercise and a healthy lifestyle. Be sure to see your doctor as requested for checkups and lab work. At some point, your doctor may send you to a well flow operator (a doctor who specializes in arthritis and related diseases). Follow a Healthy Lifestyle While no one knows what causes rheumatoid arthritis, these tips may help reduce your symptoms: ?? Find the right balance of rest and activity. ?? Learn ways to reduce or control stress. ?? Ask your family and friends for help with tasks. ?? Eat healthy foods. ?? Stay at your proper weight. Start to Exercise Gentle exercise can make it easier to use your joints. Keep the following in mind when you work out: ?? Choose exercises that improve joint motion and make your muscles stronger. Your doctor or a physical therapist may suggest a few. ?? Low-impact activities, such as walking, biking, or exercising in a warm pool, are good. ?? Dont push yourself too hard at first. Slowly build up your endurance over time. ?? When pain and stiffness are really bad, cut back on your workout. Use Special Tools Even simple tasks can be hard to do when your joints hurt. The special tools and aids listed here can make things easier by reducing strain and protecting your joints. Ask your health care provider where to find these and other helpful tools: ?? Long-handled reachers and grabbers ?? Jar openers, two-handled cups, button threaders ?? Splints for your wrists or other joints ?? Large pack puller for pencils, garden tools, and other hand-held objects ?? [id number] [facility], [address] [place] [address]. All rights reserved. This information is not intended as a substitute for professional medical care. Always follow your healthcare professional's instructions. This document has images extracted. Please consider using ticckle for all your patient education needs. Source: [facility] Ap[employer]any Document Id: [id number] documented in this encounter Miscellaneous Notes Miscellaneous - Saranya James, R.N. - 09/27/2014 11:16 AM CDT *Medication Refill Msg Document Contains Addenda Addendum by ZACARIAS DUDLEY LPN on 27 September 2014 14:20:22 CDT Placed at front end application developer Addendum by JUAN CERVANTES MD on 27 September 2014 11:43:26 CDT From: JUAN CERVANTES MD To: SARANYA JAMES; MOSHE Cervantes Nurse; Sent: 09/27/2014 11:43:26 CDT Subject: RE: *Medication Refill Msg Actions: Notify patient- refer to General Message printed From: SARANYA JAMES To: JUAN CERVANTSE MD; Cc: FB Helen Nurse; Sent: 09/27/2014 11:16:32 CDT Subject: *Medication Refill Msg Caller is: ( ) Patient ( ) Mother ( ) Father ( ) Spouse ( ) Daughter ( ) Son ( ) Pharmacy ( ) Other: Provider:[facility]: please call patient when script is ready to picker machine operator. Name of Medications Needing Refill:norco 5-325mg tab - take one tab po at bedtime. max acetaminphen dose is 4000mg in 24 hrs Last Refill Date:07-24-14 #30 Additional Information:was seen in ER 09-02-14 received #20 of norco then. Last / Future Appointment: Disposition: ( ) Send to Pharmacy ( ) Call to Pharmacy ( ) Patient will picker machine operator Script ( ) Mail Rx to Patient Source: [facility] POWERCHART Document Id: [id number] Electronically signed by Conversion, [facility] Winding Lathe Operator [id number] at 07/29/2016 4:46 PM CDT Miscellaneous - Tin Schmidt, SOHAN, C.N.P. - 06/29/2014 1:14 PM CDT Normal Results Letter 29 June 2014 ALTHEA [address]IM [address] [place] [id number] Dear ALTHEA ARIAS, I am pleased to report that your results from the following diagnostic test(s) are normal. Please follow up with us as we discussed during your visit or sooner if you have any concerns. If you have questions or concerns, please do not hesitate to call our office. Result Name Current Result Previous Result Normal Range Creatinine (mg/dL) 0.6 06/29/2014 (L) 0.6 03/16/2014 0.6 - 1.1 EGFR (MDRD) (mL/min/1.73m2) >60 06/29/2014 >60 03/16/2014 >=60 - EGFR (MDRD) (mL/min/1.73m2) >60 06/29/2014 >60 03/16/2014 >=60 - AST (unit/L) 20 06/29/2014 19 03/16/2014 8 - 43 Hgb (g/dL) (L) 11.9 06/29/2014 13.0 03/16/2014 12.0 - 15.5 Hct (%) 37.9 06/29/2014 40.6 03/16/2014 34.9 - 44.5 WBC (x10(9)/L) 3.9 06/29/2014 5.0 03/16/2014 3.4 - 10.5 RBC (x10(12)/L) 4.31 06/29/2014 4.43 03/16/2014 3.90 - 5.03 MCV (fL) 87.9 06/29/2014 91.6 03/16/2014 82.0 - 98.0 RDW (%) 13.8 06/29/2014 14.0 03/16/2014 11.9 - 15.5 Platelet (x10(9)/L) 177 06/29/2014 178 03/16/2014 150 - 450 Neutro Absolute (10(9)/L) 1.94 06/29/2014 3.50 03/16/2014 1.70 - 7.00 Lymph Absolute (x10(9)/L) 1.29 06/29/2014 0.96 03/16/2014 0.90 - 2.90 Woods Absolute (x10(9)/L) 0.45 06/29/2014 0.49 03/16/2014 0.30 - 0.90 Eos Absolute (x10(9)/L) 0.17 06/29/2014 0.07 03/16/2014 0.05 - 0.50 Baso Absolute (x10(9)/L) 0.02 06/29/2014 0.01 03/16/2014 0.00 - 0.30 Sincerely, TIN SCHMIDT [address] [place] [address] Electronic Signature Electronically Signed By: TIN SCHMIDT CNP On: 29 June 2014 This document has images extracted. Source: [facility] POWERCHART Document Id: [id number] Electronically signed by Conversion, [facility] Winding Lathe Operator [id number] at 07/29/2016 4:46 PM CDT Miscellaneous - Tin Schmidt, SOHAN, C.N.P. - 06/29/2014 9:41 AM CDT Ambulatory Patient Summary [address] [place], [place] [phone] Visit Information Name: ALTHEA ARIAS [facility] Number: [id number] Current Date: 06/29/2014 09:41:30 Physicians Attending Provider: TIN SCHMIDT CNP Primary Care Provider: TIN SCHMIDT CNP ARIAS ALTHEA Christiansen has been given the following list of [...] Oral, every 4 hours as needed for painThis is a CHANGE Routed to [address] [id number] calcium-vitamin D (Calcium 600+D) 1 tab, Oral, two times a day folic acid (folic acid 1 mg oral tablet) 1 Tablet(s), Oral, once a day hydroxychloroquine (Plaquenil Sulfate 200 mg oral tablet) 2 Tablet(s), Oral, once a day (at bedtime) ibuprofen (ibuprofen 200 mg oral tablet) 1 Tablet(s), Oral, every 4 hours as needed for pain with food leflunomide (Arava 20 mg oral tablet) 1 Tablet(s), Oral, once a day meclizine (meclizine 25 mg oral tablet) 1 Tablet(s), Oral, three times a day as needed for Dizziness methotrexate (methotrexate 2.5 mg oral tablet) 5 Tablet(s), Oral, every week on Saturday night predniSONE (predniSONE 5 mg oral tablet) 2 Tablet(s), Oral, once a day ranitidine (ranitidine 150 mg oral tablet) 1 Tablet(s), Oral, two times a day *senna (Senokot Extra 8.6 mg oral tablet) 2 Tablet(s), Oral, two times a day as needed for Constipation * You have let us know that you are not taking this medication as listed. Please talk with your primary care provider or the health care provider who prescribed the medication as soon as possible. Stop Taking the Following Medications: Medication list as of 06-29-14 09:41 Attention: If you have any medications at [...] of emergency. 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 Living with Rheumatoid Arthritis Rheumatoid arthritis is an ongoing problem, but it doesnt have to keep you from being active. You can help control it with exercise and a healthy lifestyle. Be sure to see your doctor as requested for checkups and lab work. At some point, your doctor may send you to a well flow operator (a doctor who specializes in arthritis and related diseases). Follow a Healthy Lifestyle While no one knows what causes rheumatoid arthritis, these tips may help reduce your symptoms: ?? Find the right balance of rest and activity. ?? Learn ways to reduce or control stress. ?? Ask your family and friends for help with tasks. ?? Eat healthy foods. ?? Stay at your proper weight. Start to Exercise Gentle exercise can make it easier to use your joints. Keep the following in mind when you work out: ?? Choose exercises that improve joint motion and make your muscles stronger. Your doctor or a physical therapist may suggest a few. ?? Low-impact activities, such as walking, biking, or exercising in a warm pool, are good. ?? Dont push yourself too hard at first. Slowly build up your endurance over time. ?? When pain and stiffness are really bad, cut back on your workout. Use Special Tools Even simple tasks can be hard to do when your joints hurt. The special tools and aids listed here can make things easier by reducing strain and protecting your joints. Ask your health care provider where to find these and other helpful tools: ?? Long-handled reachers and grabbers ?? Jar openers, two-handled cups, button threaders ?? Splints for your wrists or other joints ?? Large pack puller for pencils, garden tools, and other hand-held objects ?? [id number] [facility], [address] [place] [address], [place] [address]. All rights reserved. This information is not intended as a substitute for professional medical care. Always follow your healthcare professional's instructions. Your Goals/Additional instructions: This document has images extracted. Please consider using ticckle for all your patient education needs. Source: [facility] POWERCHART Document Id: [id number] Miscellaneous - Tin Schmidt APRN, C.N.P. - 06/29/2014 9:41 AM CDT Ambulatory Discharge Medication List [address] [id number] Visit Information Name: CRISTA ARIASUMAdriane Christiansen [facility] Number: [id number] Visit Date: 06/29/2014 09:41:28 Attending Provider: TIN SCHMIDT CNP Primary Care Provider: TIN SCHMIDT CNP ALTHEA ARIAS has been given the following [...] Oral, every 4 hours as needed for painThis is a CHANGE Routed to [address] [id number] calcium-vitamin D (Calcium 600+D) 1 tab, Oral, two times a day folic acid (folic acid 1 mg oral tablet) 1 Tablet(s), Oral, once a day hydroxychloroquine (Plaquenil Sulfate 200 mg oral tablet) 2 Tablet(s), Oral, once a day (at bedtime) ibuprofen (ibuprofen 200 mg oral tablet) 1 Tablet(s), Oral, every 4 hours as needed for pain with food leflunomide (Arava 20 mg oral tablet) 1 Tablet(s), Oral, once a day meclizine (meclizine 25 mg oral tablet) 1 Tablet(s), Oral, three times a day as needed for Dizziness methotrexate (methotrexate 2.5 mg oral tablet) 5 Tablet(s), Oral, every week on Saturday night predniSONE (predniSONE 5 mg oral tablet) 2 Tablet(s), Oral, once a day ranitidine (ranitidine 150 mg oral tablet) 1 Tablet(s), Oral, two times a day *senna (Senokot Extra 8.6 mg oral tablet) 2 Tablet(s), Oral, two times a day as needed for Constipation * You have let us know that you are not taking this medication as listed. Please talk with your primary care provider or the health care provider who prescribed the medication as soon as possible. Stop Taking the Following Medications: Medication list as of 06-29-14 09:41 Attention: If you have any medications at [...] of emergency. Electronically Signed By: TIN SCHMIDT SALESPERSON AUTOMOBILES Signed On:29-JUN-2014 09:41:11 Additional Information: Source: [facility] POWERCHART Document Id: [id number] Miscellaneous - Gunjan Meza L.PSheltonN. - 06/29/2014 9:30 AM CDT Adult Principal Software Architect Intake/History Adult Principal Software Architect Intake/History Entered On: 06/29/2014 9:33 CDT Performed On: 06/29/2014 9:30 CDT by GUNJAN MEZA LPN Intake Chief Complaint : Follow up of ER. Fell on stairs. Happened on saturday. Fractured her back. Temperature Core : 37.1 DegC(Converted to: 98.8 DegF) Peripheral Pulse Rate : 80 /min Respiratory Rate : 16 /min Heart Rhythm : Regular Systolic Blood Pressure : 110 mmHg Diastolic Blood Pressure : 68 mmHg NIBP Mean : 82 mmHg BP Location : Right upper extremity Blood Pressure Cuff Size : Regular Height : 158 cm(Converted to: 5 ft 2 inch(es), 62 inch(es)) Actual Weight : 74.3 kg(Converted to: 163 lb 13 oz) Weight Source : Standing scale Dosing Weight Clinic : 74.3 kg Clinic BSA : 1.81 Body Mass Index : 29.76 kg/m2 GUNJAN MEZA RN INFORMATICS - 06/29/2014 9:30 CDT General Info Information Given By : Patient, Son Preferred Communication Mode : Verbal Languages : Ana Is Patient Female and 13-50 no hysterectomy : No GUNJAN MEZA RN INFORMATICS - 06/29/2014 9:30 CDT Subjective Pain Symptoms : Yes GUNJAN MEZA RN INFORMATICS - 06/29/2014 9:30 CDT Pain Scale Pain Scale Verbal 0-10 : Open GUNJAN MEZA RN INFORMATICS - 06/29/2014 9:30 CDT Pain Pain Assessment Grid Pain 1 Location : Lower back Intensity : 6 Time Pattern : Constant GUNJAN MEZA RN INFORMATICS - 06/29/2014 9:30 CDT Dependent Habits Tobacco Use/Currently Using : No Exposure to Tobacco Smoke : Other: never Smoking Status : Never smoker GUNJAN MEZA RN INFORMATICS - 06/29/2014 9:30 CDT Caffeine Use Grid Caffeine Use : Current Type : Coffee, Tea Frequency : Daily GUNJAN MEZA RAGHAV - 06/29/2014 9:30 CDT Recreational Drug Use Grid Drug Use : None GUNJAN MEZA RN INFORMATICS - 06/29/2014 9:30 CDT ID Screen Drug Resistant Organism : No Travel Within Last 21 Days : No Contact with someone with Ebola : No GUNJAN MEZA RN INFORMATICS - 06/29/2014 9:30 CDT Source: [employer] POWERCHART Document Id: [id number]!49 documented in this encounter Plan of Treatment Upcoming Encounters Date Type Specialty Care Team Description 02/01/2022 Comprehensive Visit Family Medicine Tin Schmidt A PRN, C.N.P. [address] [place], [place] [phone] (Wo rk) documented as of this encounter Procedures Procedure Name Priority Date/Time Associated Comments Diagnosis AUTOMATED DIFFERENTIAL, Routine 06/29/2014 10:02 Results for this B AM CDT procedure are i n the results section. CBC WITH DIFFERENTIAL, B Routine 06/29/2014 10:02 Results for this AM CDT procedure are i n the results section. ASPARTATE Routine 06/29/2014 10:02 Results for this AMINOTRANSFERASE (AST), AM CDT proc edure are in S/P the results section. CREATININE WITH EGFR, Routine 06/29/2014 10:02 Re sults for this S/P AM CDT procedure are i n the results section. documented in this encounter Results Automated Differential (06/29/2014 10:02 AM CDT) P athologist Signature Absolute 1.94 1.70 - POWERCHART Neutrophils 7.00 109L Lymphocytes 1.29 0.90 - POWERCHART 2.90 X109L Monocytes 0.45 0.30 - POWERCHART 0.90 X109L Eosinophils 0.17 0.05 - POWERCHART 0.50 X109L Absolute 0.02 0.00 - POWERCHART Basophil 0.30 X109L Specimen Anatomical Collection Method Collection Time Receive d Time (Source) Location / / Volume Laterality Blood 06/29/2014 10:02 06/29/2014 AM CDT 10:02 AM CDT Tin Schmidt APRN, C.N.P. LAB BLOOD ADD-ON Performing Organization Address City/State/ZIP Code Phon e Number POWERCHART (ABNORMAL) CBC with Differential (06/29/2014 10:02 AM CDT) Analysis Performed At Patho logist Time Signature Leukocytes 3.9 3.4 - 10.5 POWERCHART X109L Erythrocytes 4.31 3.90 - POWERCHART 5.03 G4240T Hemoglobin 11.9 (L) 12.0 - POWERCHART 15.5 GDL Hematocrit 37.9 34.9 - POWERCHART 44.5 MCV 87.9 82.0 - POWERCHART 98.0 FL HX RDW 13.8 11.9 - POWERCHART 15.5 Platelet Count 177 150 - 450 POWERCHART X109L Specimen (Source) Anatomical Collection Method Collection Time Re ceived Time Location / / Volume Laterality Blood 06/29/2014 10:02 AM CDT Tin Schmidt APRN, C.N.P. LAB BLOOD ADD-ON Performing Organization Address City/State/ZIP Code Phon e Number POWERCHART Creatinine with eGFR (06/29/2014 10:02 AM CDT) P athologist Signature Creatinine 0.6 0.6 - 1.1 POWERCHART MGDL HXeGFR (MDRD) >60 >=60 POWERCHART [id number] eGFR >60 >=60 POWERCHART Black/ [id number] Taiwanese Specimen (Source) Anatomical Collection Method Collection Time Re ceived Time Location / / Volume Laterality Blood 06/29/2014 10:02 AM CDT Maisha Yancey APRNNSheltonP. LAB BLOOD ADD-ON Performing Organization Address City/State/ZIP Code Phon e Number POWERCHART AST (Aspartate Aminotransferase) (06/29/2014 10:02 AM CDT) Patholo gist Method Time Signature Aspartate 20 8 - 43 POWERCHART Aminotransferase UNITL (AST), S Specimen (Source) Anatomical Collection Method Collection Time Re ceived Time Location / / Volume Laterality Blood 06/29/2014 10:02 AM CDT Arlette Yancey APRN.N.P. LAB BLOOD ADD-ON Performing Organization Address City/State/ZIP Code Phon e Number POWERCHART documented in this encounter Visit Diagnoses Not on filedocumented in this encounter
--- OUTSIDE RECORDS SUMMARY | 2022-01-21 23:27 | XMS_ITS | Encounter Summary ---
:1955 Author Organization [facility] Address [address] [place] [address] Care Team Providers Name Role Phone Unavailable Primary Care Provider Unavailable Encounter Details Date Type Department Care Team Description 03/30/2015 Hospital Encounter HX [facility] Kari Schmidt, OPERATIONS AND MAINTENANCE SPECIALIST, C.N.P. [address] [place] [phone] (Wo rk) Social History Tobacco [...] Reading Time Taken Comments Blood Pressure 110/60 03/30/2015 2:33 PM PRODUCT MARKETING ANALYST Pulse 68 03/30/2015 2:33 PM PRODUCT MARKETING ANALYST Temperature - - Respiratory Rate 16 03/30/2015 2:33 PM PRODUCT MARKETING ANALYST Oxygen Saturation - - Inhaled Oxygen Concentration - - Weight 70.3 kg (154 lb 15.7 oz) 03/30/2015 2:33 PM PRODUCT MARKETING ANALYST Height 158 cm (5' 2.21) 03/30/2015 2:33 PM PRODUCT MARKETING ANALYST Body Mass Index 28.16 03/30/2015 2:33 PM PRODUCT MARKETING ANALYST documented in this encounter Medications at Time [...] Progress Notes Tin Schmidt, SOHAN, C.N.P. - 03/30/2015 2:52 PM CST Clinic Full Note CHIEF COMPLAINT/REASON FOR VISIT Lower back pain. Has fractures and arthritis in back HISTORY OF PRESENT ILLNESS Althea is here with her son who is interpreting. She has rheumatoid arthritis, she follows with Rheumatology at [facility]. She had labs done 2 weeks ago. She is on methotrexate, Arava and prednisione. She takes Tylenol as needed for back pain. She would like to go back to Physical Therapy. MEDICATIONS acetaminophen 325 mg oral tablet, 650 mg, 2 tab(s), PO, q4hr, PRN, 1 refills Arava 20 mg oral tablet, 20 mg, 1 tab(s), PO, Daily Calcium 600+D, 1 tab, PO, 2xDay folic acid 1 mg oral tablet, 1 mg, 1 tab(s), PO, Daily ibuprofen 200 mg oral tablet, 200 mg, 1 tab(s), with food, PO, q4hr, PRN meclizine 25 mg oral tablet, 25 mg, 1 tab(s), PO, 3xDay, PRN, 1 refills methotrexate 2.5 mg oral tablet, 12.5 mg, 5 tab(s), on Saturday night, PO, Weekly Plaquenil Sulfate 200 mg oral tablet, 400 mg, 2 tab(s), PO, Bedtime predniSONE 5 mg oral tablet, 10 mg, 2 tab(s), PO, Daily ranitidine 150 mg oral tablet, 150 mg, 1 tab(s), PO, 2xDay, 3 refills Senokot Extra 8.6 mg oral tablet, 17.2 mg, 2 tab(s), PO, 2xDay, PRN ALLERGIES NKA PAST MEDICAL HISTORY Chronic Arthritis Rheumatoid Arthritis, degenerative, lower leg/knee Combined cataracts Constipation, Unspecified Dyspepsia NOS Fx Vertebra Compression Lumbar Closed Subsequent Osteopenia Historical Malaria NOS Tuberculosis converter PROCEDURES/SURGICAL HISTORY CT of lumbar spine (06/27/2014), Mammogram (10/09/2011), DEXA - Dual energy X-ray photon absorptiometry (06/27/2011), Bone density scan (03/20/2007), Lipid level (08/08/2006), Cytopathology, cervical or vaginal (any reporting system), collected in preservative fluid, automated thin layer preparation; manual screening under physician supervision.. (05/29/2006), Pap smear (05/29/2006). SOCIAL HISTORY Date Time: 03/30/2015 14:33 Tobacco: Smoking Status: Never smoker Exposure: Other: never Alcohol: Use: No Recreational Drugs: Use: None Type: No Results Found FAMILY HISTORY Sister: Negative: Brother: Negative: Brother:Positive: GERD - Gastro-esophageal reflux disease HEALTH MAINTENANCE She will do FIT for colon screen. SYSTEMS REVIEW Positive for that mentioned in the History of Present Illness and Past Medical History. All other systems were reviewed and were negative. VITAL SIGNS T: 36.5 ??C (Core) HR: 68 RR: 16 BP: 110 / 60 HT: 158 cm WT: 70.3 kg BMI: 28.16 PHYSICAL EXAMINATION GENERAL: Well-developed, well-nourished, in no acute distress. SKIN: Warm and dry. HEENT: TMs clear. Throat clear. NECK: Supple. No lymphadenopathy or thyromegaly. HEART: Regular rate and rhythm. S1, S2. No murmur. LUNGS: Clear to auscultation. No wheezes or rales. ABDOMEN: Soft, nontender. No hepatosplenomegaly. EXTREMITIES: Warm, dry. No peripheral edema. IMPRESSION/REPORT/PLAN Arthritis Rheumatoid Schedule follow up appointment with [facility]. Referral to [facility]. Ordered: OV Est Pt Level 3 - 10585 - 15 min Encounter for screening for malignant neoplasm of colon Ordered: OV Est Pt Level 3 - 77146 - 15 min Orders: Occult Blood QL Immunochem, Stool-[facility] [id number] Electronically Signed By: TIN SCHMIDT CNP On: 03/30/2015 02:55 PM Source: [employer] Document Id: [id number] UCT MARKETING ANALYST documented in this encounter Nursing Notes Tin Schmidt APRN, C.N.P. - 03/30/2015 2:42 PM CST Ambulatory Patient Education The following Patient [...] For more information contact: ?? Arthritis Foundation [phone], www.[email or web address] ?? National [place] of Arthritis and Musculoskeletal and Skin Diseases (NIAMS) [phone], www.niams.nih.gov Return Promptly or contact your doctor if any of the following occur: ?? Increasing weakness, pale color of the skin, fainting ?? Chest pain or shortness of breath ?? Blood in your vomit or stool (black or red color) ?? Visual changes, skin ulcers ?? [id number] Debbie Rodriguez, [address] [place] [address], [place] [address]. All rights reserved. This information is not intended as a substitute for professional medical care. Always follow your healthcare professional's instructions. Source: [facility] wst.cnCHART Document Id: [id number] UCT MARKETING ANALYST documented in this encounter Miscellaneous Notes Miscellaneous - Hank James L.P.N. - 06/02/2015 11:57 AM CDT Colorectal cancer screening due Document Contains Addenda Addendum by GUNJAN MEZA LPN on May 15, 2016 12:00:[address] CD[address] process in place for colorectal cancer screening. From: HANK JAMES LPN To: MOSHE Schmidt Nurse; Sent: 06/02/2015 11:57:28 CDT Show up: 05/15/2016 11:57:00 CDT Subject: Colorectal cancer screening due Due Date/Time: 05/29/2016 11:57:00 CDT Please Remember to: Patient is due for colorectal cancer screening. Patient last completed the FIT test on 05/30/15. This type of colorectal cancer screening needs to be done on a yearly basis. Please call patient and advise. PATIENT: ( ) Call Patient ( ) Ask Patient to ( ) ( ) Call Relative ( ) Schedule Patient ( ) ( ) Call for National [employer] Leader ( ) Follow up on Results ( ) Other: PROVIDER: ( ) Call Physician ( ) Call Pharmacist ( ) Call Lab ( ) Other: Special Instructions: Comments: Source: [facility] DNAdigest Document Id: [id number] Miscellaneous - Tin Schmidt APRN, C.N.P. - 03/30/2015 2:42 PM CST Ambulatory Patient Summary [address] [id number] Visit Information Name: ALTHEA ARIAS [facility] Number: [id number] Current Date: 03/30/2015 14:42:54 Physicians Attending Provider: TIN SCHMIDT APRN, CNP Primary Care Provider: TIN SCHMIDT APRN, CNP ARIASALTHEA GARZA has been given the following list of [...] 1 Tablet(s), Oral, two times a day senna (Senokot Extra 8.6 mg oral tablet) 2 Tablet(s), Oral, two times a day as needed for Constipation Stop Taking the Following Medications: Medication list as of 03-30-15 14:42 Attention: If you have any medications at [...] emergency. Electronically Signed By: TIN SCHMIDT APRN METHODS SPECIALIST Signed On:30-MAR-2015 14:42:37 Your Allergies & Intolerances Substance Reaction Symptoms Category Comments No Known Allergies Drug Your Problem List Problem Status Onset Comments Constipation, Unspecified Active Osteopenia Active Arthritis, degenerative, lower leg/knee Active Dyspepsia NOS Active Arthritis Rheumatoid Active Fx Vertebra Compression Lumbar Closed Subsequent Active Combined cataracts Active 10/06/2010 Your Upcoming Appointments Date Time Location Provider [...] For more information contact: ?? Arthritis Foundation [phone], [email or web address] ?? National [place] of Arthritis and Musculoskeletal and Skin Diseases (NIAMS) [phone], www.niams.nih.gov Return Promptly or contact your doctor if any of the following occur: ?? Increasing weakness, pale color of the skin, fainting ?? Chest pain or shortness of breath ?? Blood in your vomit or stool (black or red color) ?? Visual changes, skin ulcers ?? [id number] [place] [address]. All rights reserved. This information is not [...] if you dont have one. Go to [email or web address] and click on Create Your Account. Then, follow the directions to complete the online form. Youll be asked for your [facility] number which you can find at the top of this document. Your Goals/Additional instructions: Source: [facility] POWERCHART Document Id: [id number] UCT MARKETING ANALYST Miscellaneous - Tin Schmidt APRN, C.N.P. - 03/30/2015 2:42 PM CST Ambulatory Discharge Medication List [address] [id number] Visit Information Name: ALTHEA ARIAS [facility] Number: [id number] Visit Date: 03/30/2015 14:42:52 Attending Provider: TIN SCHMIDT APRN, CNP Primary Care Provider: TIN SCHMIDT APRN [facility] ALTHEA ARIAS has been given the following [...] 1 Tablet(s), Oral, two times a day senna (Senokot Extra 8.6 mg oral tablet) 2 Tablet(s), Oral, two times a day as needed for Constipation Stop Taking the Following Medications: Medication list as of 03-30-15 14:42 Attention: If you have any medications at [...] emergency. Electronically Signed By: TIN SCHMIDT APRN METHODS SPECIALIST Signed On:30-MAR-2015 14:42:37 Additional Information: Source: [facility] POWERCHART Document Id: [id number] UCT MARKETING ANALYST Miscellaneous - Gunjan Meza L.P.N. - 03/30/2015 2:33 PM CST Adult Milk Drying Machine Operator Intake/History Adult Milk Drying Machine Operator Intake/History Entered On: 03/30/2015 14:35 PRODUCT MARKETING ANALYST Performed On: 03/30/2015 14:33 PRODUCT MARKETING ANALYST by GUNJAN MEZA LPN Intake Chief Complaint : Lower back pain. Has fractures and arthritis in back Temperature Core : 36.5 DegC(Converted to: 97.7 DegF) Peripheral Pulse Rate : 68 /min Respiratory Rate : 16 /min Heart Rhythm : Regular Systolic Blood Pressure : 110 mmHg Diastolic Blood Pressure : 60 mmHg NIBP Mean : 77 mmHg BP Location : Right upper extremity Blood Pressure Cuff Size : Regular Height : 158 cm(Converted to: 5 ft 2 inch(es), 62 inch(es)) Actual Weight : 70.3 kg(Converted to: 155 lb 0 oz) Weight Source : Standing scale Dosing Weight Clinic : 70.3 kg Clinic BSA : 1.76 Body Mass Index : 28.16 kg/m2 GUNJAN MEZA LPN - 03/30/2015 14:33 PRODUCT MARKETING ANALYST General Info Languages : Ana Is Patient Female and 13-50 no hysterectomy : No GUNJAN MEZA LPN - 03/30/2015 14:33 PRODUCT MARKETING ANALYST Subjective Pain Symptoms : Yes GUNJAN MEZA LPN - 03/30/2015 14:33 PRODUCT MARKETING ANALYST Pain Scale Pain Scale Verbal 0-10 : Open GUNJAN MEZAAnn-Marie AVILEZ - 03/30/2015 14:33 PRODUCT MARKETING ANALYST Pain Pain Assessment Grid Pain 1 Location : Lower back Intensity : 7 Time Pattern : Constant, Intermittent GUNJAN MEZA RAGHAV - 03/30/2015 14:33 PRODUCT MARKETING ANALYST Dependent Habits Exposure to Tobacco Smoke : Other: never Smoking Status : Never smoker Tobacco 2A : No Tobacco Use/Currently Using : No Tobacco Use/Last 30 Days : No Tobacco Use/Last 12 months : No GUNJAN MEZA LPN - 03/30/2015 14:33 PRODUCT MARKETING ANALYST Caffeine Use Grid Caffeine Use : Current Type : Coffee, Tea Frequency : Daily GUNJAN MEZA LPN - 03/30/2015 14:33 PRODUCT MARKETING ANALYST Recreational Drug Use Grid Drug Use : None GUNJAN MEZA LPN - 03/30/2015 14:33 PRODUCT MARKETING ANALYST [facility] Document Id: [id number] PRODUCT MARKETING ANALYST!46 UCT MARKETING ANALYST Miscellaneous - Gunjan Meza L.P.N. - 03/30/2015 2:32 PM CST Health Assessment Health Assessment Entered On: 03/30/2015 14:33 PRODUCT MARKETING ANALYST Performed On: 03/30/2015 14:32 PRODUCT MARKETING ANALYST by GUNJAN MEZA LPN Health Assessment Complete Health Assessment Complete or Modified : Annual Health Assessment Annual Health Assessment Completed : Yes GUNJAN MEZA LPN - 03/30/2015 14:32 PRODUCT MARKETING ANALYST Nutrition Nutrition Risk Factors by History Adult : None GUNJAN MEZA LPN - 03/30/2015 14:32 PRODUCT MARKETING ANALYST Functional Current Daily Living Assistance : ADL's, Housekeeping, Meals, Transportation GUNJAN MEZA LPN - 03/30/2015 14:32 PRODUCT MARKETING ANALYST Dependent Habits Exposure to Tobacco Smoke : Other: never Smoking Status : Never smoker Tobacco 2A : No Tobacco Use/Currently Using : No Tobacco Use/Last 30 Days : No Tobacco Use/Last 12 months : No GUNJAN MEZA LPN - 03/30/2015 14:32 PRODUCT MARKETING ANALYST Caffeine Use Grid Caffeine Use : Current Type : Coffee, Tea Frequency : Daily GUNJAN MEZA RAGHAV - 03/30/2015 14:32 PRODUCT MARKETING ANALYST Alcohol Use : No GUNJAN MEZA RAGHAV - 03/30/2015 14:32 PRODUCT MARKETING ANALYST Recreational Drug Use Grid Drug Use : None GUNJAN MEZA TRACK MAINTAINER - 03/30/2015 14:32 PRODUCT MARKETING ANALYST Psychosocial Domestic Abuse Concerns : None Behavioral Health Screen/Safety Assmt : No Taoist Preference : Unknown GUNJAN MEZA RAGHAV - 03/30/2015 14:32 PRODUCT MARKETING ANALYST Advance Directive Advanced Directives : No Advance Directive Additional Information : No GUNJAN MEZA RAGHAV - 03/30/2015 14:32 PRODUCT MARKETING ANALYST Educ Needs Learning Style Preference Adult Grid Patient : Printed materials, Verbal explanation Family : Verbal explanation, Printed materials GUNJAN MEZA RAGHAV - 03/30/2015 14:32 PRODUCT MARKETING ANALYST Source: [facility] POWERCHART Document Id: [id number] PRODUCT MARKETING ANALYST!35 UCT MARKETING ANALYST documented in this encounter Plan of Treatment Upcoming Encounters Date Type Specialty Care Team Description 02/01/2022 Comprehensive Visit Family Medicine Tin Schmidt, Kuldip PRN, C.N.P. [address] [phone] (Wo rk) documented as of this encounter Visit Diagnoses Not on filedocumented in this encounter
--- OUTSIDE RECORDS SUMMARY | 2022-01-21 23:27 | XMS_ITS | Encounter Summary ---
:1955 Author Organization [facility] Address [address] [place] [address] Care Team Providers Name Role Phone Unavailable Primary Care Provider Unavailable Encounter Details Date Type Department Care Team Description 11/10/2015 Hospital Encounter HX [facility] Juan Ramon Murphy Jr., M.D. [address] [place], [place] [phone] (Wo rk) Social History [...] 1 to 4 times per year 09/01 temple services? Do you belong to any clubs [...] - - Height 158 cm (5' 2.21) 11/10/2015 9:21 AM CDT Body Mass Index - - [...] of this encounter Progress Notes Juan Ramon Lofton M.D. - 11/10/2015 9:19 AM CDT [id number] The documentation for this visit is available in [employer] IMPRESSION/REPORT/PLAN #1 Cortical and nuclear cataracts OS > OD New MR RTO 1 year Juan Ramon Lofton M.D./fidel Electronically Signed By: JUAN RAMON LOFTON MD On: 11/16/2015 01:02 PM Source: [facility] MHSDOLBEYNONRADSYS Document Id: [id number] documented in this encounter Miscellaneous Notes Miscellaneous - Juan Ramon Lofton M.D. - 11/10/2015 10:34 AM CDT Ambulatory Patient Summary [address] [place] [id number] Visit Information Name: ALTHEA ARIAS [facility] Number: [id number] Current Date: 11/10/2015 10:34:34 Physicians Attending Provider: JUAN RAMON LOFTON MD Primary Care Provider: TIN SCHMIDT APRN [facility] ALTHEA ARIAS has been given the following [...] Tablet(s), Oral, once a day (at bedtime) leflunomide [...] the Following Medications: Medication list as of 11-10-15 10:34 Attention: If you have any medications at home that are not on this list, DO NOT take them until youcontact your provider for clarification. Give a copy of your medication list to your primary care provider. Update your medication list any time medications or doses are changed and carry your medication list at all times in case of emergency. Electronically Signed By: JUAN RAMON LOFTON MD Signed On:10-NOV-2015 10:34:31 Your Allergies & Intolerances Substance Reaction Symptoms Category Comments No Known Allergies Drug Your Problem List Problem Status Onset Comments Constipation, Unspecified Active Osteopenia Active Arthritis, degenerative, lower leg/knee Active Dyspepsia NOS Active Arthritis Rheumatoid Active Fx Vertebra Compression Lumbar Closed Subsequent Active Combined cataracts Active 10/06/2010 High Risk Medication Active Your Upcoming Appointments Date Time Location Provider 11/25/2015 10:45 [facility], Chelsie Flowers Attention: Contact your local Clinic if further [...] if you dont have one. Go to [email or web address] and click on Create Your Account. Then, follow the directions to complete the online form. Youll be asked for your [facility] number which you can find at the top of this document. Your Goals/Additional instructions: Source: [facility] POWERCHART Document Id: [id number] Miscellaneous - Juan Ramon Lofton M.D. - 11/10/2015 10:34 AM CDT Ambulatory Discharge Medication List [address] [id number] Visit Information Name: ALTHEA ARIAS [facility] Number: [id number] Visit Date: 11/10/2015 10:34:32 Attending Provider: JUAN RAMON LOFTON MD Primary Care Provider: TIN SCHMIDT APRN [facility] ALTHEA ARIAS has been given the following [...] Tablet(s), Oral, once a day (at bedtime) leflunomide [...] the Following Medications: Medication list as of 11-10-15 10:34 Attention: If you have any medications at home that are not on this list, DO NOT take them until youcontact your provider for clarification. Give a copy of your medication list to your primary care provider. Update your medication list any time medications or doses are changed and carry your medication list at all times in case of emergency. Electronically Signed By: JUAN RAMON LOFTON MD Signed On:10-NOV-2015 10:34:31 Additional Information: Source: [facility] POWERCHART Document Id: [id number] documented in this encounter Plan of Treatment Upcoming Encounters Date Type Specialty Care Team Description 02/01/2022 Comprehensive Visit Family Medicine Tin Schmidt A PRN, C.N.P. [address] [phone] (Wo rk) documented as of this encounter Visit Diagnoses Not on filedocumented in this encounter
--- OUTSIDE RECORDS SUMMARY | 2022-01-21 23:27 | XMS_ITS | Encounter Summary ---
:1955 Author Organization [facility] Address [address] [place] [address] Care Team Providers Name Role Phone Unavailable Primary Care Provider Unavailable Encounter Details Date Type Department Care Team Description 07/22/2014 Hospital Encounter HX [facility]ILY[facility] Kari Schmidt, DIRECTOR OF VITAL STATISTICS, C.N.P. [address] [place] [address] (Wo rk) Social History Tobacco [...] Sign Reading Time Taken Comments Blood Pressure 112/82 07/22/2014 1:56 PM CDT Pulse 64 07/22/2014 1:56 PM CDT Temperature - - Respiratory Rate 16 07/22/2014 1:56 PM CDT Oxygen Saturation - - Inhaled Oxygen Concentration - - Weight 73 kg (160 lb 15 oz) 07/22/2014 1:56 PM CDT Height 158 cm (5' 2.21) 07/22/2014 1:56 PM CDT Body Mass Index 29.24 07/22/2014 1:56 PM CDT documented in this encounter Medications [...] Progress Notes Tin Schmidt, SOHAN, C.N.P. - 07/22/2014 1:39 PM CDT [id number] CHIEF COMPLAINT/REASON FOR VISIT Recheck L1 compression fracture. Rheumatoid arthritis and osteopenia. HISTORY OF PRESENT ILLNESS Althea is here with her son. She is being seen with the assistance of [employer] phone interpretation. She fell and sustained a L1 compression fracture on 06/27/2014. She had CT of the lumbar spine at [facility]. She was given Vicodin. She states since finishing the Vicodin, she is having increased pain and regular Tylenol does not seem to take care of it. Upon further questioning, it turns out she is only taking 1 Tylenol 2 times a day. We did discuss adequate dosing. I want her to take tav342 mg Tylenol 3 times daily at breakfast, lunch, and supper and then I want her to take 1 Vicodin 5/325 mg 1 at bedtime. She has rheumatoid arthritis and follows at [facility] and osteopenia, currently on calcium 600 mg with vitamin D. MEDICATIONS See depart summary from today. ALLERGIES None. SYSTEMS REVIEW Positive for that mentioned in the history of present illness and noted in the past medical history in the EMR. All other systems were reviewed and were negative. PREVENTIVE: Due for colon screen and mammogram. We will wait until she is having less discomfort. SOCIAL HISTORY She does not smoke. FAMILY HISTORY Reviewed per EMR on 07/22/2014. VITAL SIGNS See EMR. PHYSICAL EXAMINATION GENERAL: Well-developed, well-nourished female, in no acute distress. SKIN: Warm and dry. HEART: Regular rate rhythm. LUNGS: Clear to auscultation. SPINE: Tenderness over the lumbar spine. NEUROLOGICAL: Deep tendon reflexes 2+ and symmetrical. Normal sensation in the toes. Good pedal pulse bilaterally. IMPRESSION/REPORT/PLAN 1. Compression fracture L1. Take two 325 mg Tylenol at breakfast, lunch, and supper and then take one 5/325 mg Vicodin at bedtime, #30, no refills. 2. She has rheumatoid arthritis and follows at [facility]. She had an appointment a few weeks ago. She will be due for lab in October and will follow up for next Rheumatology appointment in 4 months. 3. Osteopenia. Stable on calcium with vitamin D. No changes. Tin Schmidt CNP/viet Electronically Signed By: TIN SCHMIDT CNP On: 07/27/2014 07:52 AM Source: [facility] MHSDOLBEYNONRADSYS Document Id: [id number] documented in this encounter Nursing Notes Tin Schmidt APRN, C.N.P. - 07/22/2014 2:10 PM CDT Ambulatory Patient Education The following Patient Education Materials have been given to the patient: Patient Education Materials: Source: [facility] POWERCHART Document Id: [id number] documented in this encounter Miscellaneous Notes Miscellaneous - Jeannette Reeves R.N. - 12/06/2014 10:04 AM CDT norco Document Contains Addenda Addendum by FARHEEN BARRAGAN RN on 06 December 2014 14:22 CDT left message notifying patient that script will be at the medical front desk coordinator for pickup Addendum by JUAN NICOLE MD on 06 December 2014 10:30:59 CDT From: JUAN NICOLE MD To: [facility] [place] Medication Refill; Sent: 12/06/2014 10:30:59 CDT Subject: RE: sridevi Actions: Notify patient- refer to General Message one week supply til meets with Tin From: JEANNETTE REEVES RN ([facility] [place] Medication Refill) To: JUAN NICOLE MD; Sent: 12/06/2014 10:04:50 CDT Subject: chavezco Caller is: ( ) Patient ( ) Mother ( ) Father ( ) Spouse ( ) Daughter ( ) Son ( chana/serafin ) Pharmacy ( ) Other: Provider: [facility]: Name of Medications Needing Refill: norco 5-325 mg Last Refill Date: Additional Information: last fill stated pt needs appt for med contract.... Last / Future Appointment: pt has appt 12/14/14 with tin.... Disposition: ( ) Send to Pharmacy ( ) Call to Pharmacy ( x ) Patient will shredder picker Script ( ) Mail Rxto Patient Source: [facility] POWERCHART Document Id: [id number] Miscellaneous - Saranya James R.NShelton - 10/28/2014 9:59 AM CDT *Medication Refill Msg Document Contains Addenda Addendum by GUNJAN MEZA LPN on 28 October 2014 10:55:30 CDT Notified Rx is at medical front desk coordinator to shredder picker and also to schedule appointment before next refill. Addendum by TIN SCHMIDT CNP on 28 October 2014 10:31:24 CDT From: TIN SCHMIDT CNP To: MOSHE Schmidt Nurse; Sent: 10/28/2014 10:31:24 CDT Subject: RE: *Medication Refill Msg Done, needs appointment to sign Controlled Substance Contract before next refill. From: SARANYA JAMES RN To: TIN SCHMIDT CNP; Sent: 10/28/2014 09:59:52 CDT Subject: *Medication Refill Msg Caller is: ( ) Patient ( ) Mother ( ) Father ( ) Spouse ( ) Daughter ( ) Son ( ) Pharmacy ( ) Other: Provider: Pharmacy:please call patient when ready Name of Medications Needing Refill:hydrocodone-apap 5-325mg oral tab - one tab po bedtime for 30 days - no more than 4000mg acetaminophen/24 hrs Last Refill Date:07-22-14 #30 Additional Information: Last / Future Appointment:07-22-14 Disposition: ( ) Send to Pharmacy ( ) Call to Pharmacy ( ) Patient will shredder picker Script ( ) Mail Rx to Patient Source: [facility] POWERCHART Document Id: [id number] Miscellaneous - Tin Schmidt APRN, C.N.P. - 07/22/2014 2:11 PM CDT Ambulatory Patient Summary [address] [id number] Visit Information Name: ALTHEA ARIAS [facility] Number: [id number] Current Date: 07/22/2014 14:11:04 Physicians Attending Provider: TIN SCHMIDT CNP Primary [...] tablet) 1 Tablet(s), Oral, once a day HYDROcodone-acetaminophen (HYDROcodone-acetaminophen 5 mg-325 mg oral tablet) 1 Tablet(s), Oral, once a day (at bedtime) x 30 day(s) No more than 4,000mg acetaminophen/24hrs New Routed to Printer hydroxychloroquine (Plaquenil Sulfate 200 mg oral tablet) [...] the Following Medications: Medication list as of 07-22-14 14:11 Attention: If you have any medications at [...] Electronically Signed By: TIN SCHMIDT CNP Signed On:22-JUL-2014 14:10:43 Your Allergies & Intolerances Substance Reaction Symptoms [...] local Clinic if further appointment detail needed. Your Goals/Additional instructions: Source: [facility] POWERCHART Document Id: [id number] Miscellaneous - Tin Schmidt APRN, C.N.P. - 07/22/2014 2:11 PM CDT Ambulatory Discharge Medication List [address] [id number] Visit Information Name: ALTHEA ARIAS [facility] Number: [id number] Visit Date: 07/22/2014 14:11:03 Attending Provider: TIN SCHMIDT CNP Primary Care Provider: TIN SCHMIDT CNP ARIASALTHEA GARZA Kuldip has been given the [...] tablet) 1 Tablet(s), Oral, once a day HYDROcodone-acetaminophen (HYDROcodone-acetaminophen 5 mg-325 mg oral tablet) 1 Tablet(s), Oral, once a day (at bedtime) x 30 day(s) No more than 4,000mg acetaminophen/24hrs New Routed to Printer hydroxychloroquine (Plaquenil Sulfate 200 mg oral tablet) [...] the Following Medications: Medication list as of 07-22-14 14:11 Attention: If you have any medications at [...] of emergency. Electronically Signed By: TIN SCHMIDT CONCRETE BATCHING PLANT OPERATOR Signed On:22-JUL-2014 14:10:43 Additional Information: Source: [facility] POWERCHART Document Id: [id number] Miscellaneous - Gunjna Meza L.P.N. - 07/22/2014 1:56 PM CDT Adult Surveillance Monitor Intake/History Adult Surveillance Monitor Intake/History Entered On: 07/22/2014 14:00 CDT Performed On: 07/22/2014 13:56 CDT by GUNJAN MEZA LPN Intake Chief Complaint : Having alot of pain from fall. The whole lower body hurts. Back pain and having difficulty sitting. Fell last month and was seen at ER. Having kidney pain. Temperature Core : 36.9 DegC(Converted to: 98.4 DegF) Peripheral Pulse Rate : 64 /min Respiratory Rate : 16 /min Heart Rhythm : Regular Systolic Blood Pressure : 112 mmHg Diastolic Blood Pressure : 82 mmHg NIBP Mean : 92 mmHg BP Location : Left upper extremity Blood Pressure Cuff Size : Regular Height : 158 cm(Converted to: 5 ft 2 inch(es), 62 inch(es)) Actual Weight : 73 kg(Converted to: 160 lb 15 oz) Weight Source : Standing scale Dosing Weight Clinic : 73 kg Clinic BSA : 1.79 Body Mass Index : 29.24 kg/m2 GUNJAN MEZA RAGHAV - 07/22/2014 13:56 CDT General Info Information Given By : Patient, Other: Wolfe Interperter Preferred Communication Mode : Verbal Languages : Irish Is Patient Female and 13-50 no hysterectomy : No DERRICKMAXIMEGUNJANGALO TO LPN - 07/22/2014 13:56 CDT Subjective Pain Symptoms : Yes GUNJAN MEZA LPN - 07/22/2014 13:56 CDT Pain Scale Pain Scale Verbal 0-10 : Open GUNJAN MEZA LPN - 07/22/2014 13:56 CDT Pain Pain Assessment Grid Pain 1 Location : Other: The whole lower back and body Time Pattern : Constant DERRICK GUNJAN TO LPN - 07/22/2014 13:56 CDT Dependent Habits Tobacco Use/Currently Using : No Exposure to Tobacco Smoke : Other: never Smoking Status : Never smoker GUNJAN MEZA ZULEIKA RAGHAV - 07/22/2014 13:56 CDT Caffeine Use Grid Caffeine Use : Current Type : Coffee, Tea Frequency : Daily GUNJAN MEZA LPN - 07/22/2014 13:56 CDT Recreational Drug Use Grid Drug Use : None DERRICKMAXIMEGUNJANGALO TO LPN - 07/22/2014 13:56 CDT ID Screen Drug Resistant Organism : No Travel Within Last 21 Days : No Contact with someone with Ebola : No DERRICK GUNJANGALO TO LPN - 07/22/2014 13:56 CDT [facility] Document Id: [id number] CDT!48 documented in this encounter Plan of Treatment Upcoming Encounters Date Type Specialty Care Team Description 02/01/2022 Comprehensive Visit Family Medicine Tin Schmidt, Kuldip PRN, C.N.P. [address] [phone] (Wo rk) documented as of this encounter Visit Diagnoses Not on filedocumented in this encounter
--- OUTSIDE RECORDS SUMMARY | 2022-01-21 23:27 | XMS_ITS | Encounter Summary ---
:1955 Author Organization [facility] Address [address] [place] [address] Care Team Providers Name Role Phone Unavailable Primary Care Provider Unavailable Encounter Details Date Type Department Care Team Description 12/14/2014 Hospital Encounter HX [facility] FAMILYPRA Kari Schmidt, JAVA ENTERPRISE ARCHITECT, C.N.P. [address] [place] [address] (Wo rk) Social History Tobacco [...] Sign Reading Time Taken Comments Blood Pressure 128/78 12/14/2014 1:39 PM CDT Pulse 80 12/14/2014 1:39 PM CDT Temperature - - Respiratory Rate 16 12/14/2014 1:39 PM CDT Oxygen Saturation - - Inhaled Oxygen Concentration - - Weight 68.8 kg (151 lb 10.8 oz) 12/14/2014 1:39 PM CDT Height 158 cm (5' 2.21) 12/14/2014 1:39 PM CDT Body Mass Index 27.56 12/14/2014 1:39 PM CDT documented in this encounter Medications [...] Progress Notes Tin Schmidt, SOHAN, C.N.P. - 12/14/2014 1:28 PM CDT [id number] CHIEF COMPLAINT/REASON FOR VISIT 1. Rheumatoid arthritis. 2. Lumbar compression fracture June 2014. 3. Cataracts. 4. Skin lesions on thighs. HISTORY OF PRESENT ILLNESS 1. Althea is here with her son, who is interpreting. She has rheumatoid arthritis. She follows with Rheumatology at [facility]. She was there the end of November. Her prednisone dosage was increased.She is also on methotrexate and Plaquenil. 2. She fell in June 2014 and sustained a lumbar compression fracture. She continues to have discomfort and is especially having trouble sleeping at night. I am going to get her scheduled for physical therapy. She will continue to get her rheumatology labs drawn here and they will be faxed to Perry Arana in Rheumatology Department. She needs CBC, creatinine, and AST every 3 months. 3. She also needs to be seen by Ophthalmology every 6 months due to her rheumatoid arthritis medications and she also has cataracts. She is due to see Dr. Ivy in December and I will get an order in for her to get that scheduled. 4. She has some skin lesions on her thighs that she mentioned to Rheumatology. They felt she should be seen by Dermatology. They only had male providers that day and she requests female. I will have her see Dr. Kebede for further evaluation. MEDICATIONS See depart summary from today. ALLERGIES None. SYSTEMS REVIEW Positive for that mentioned in the history of present illness and noted in the past medical history in the EMR. All other systems were reviewed and were negative. PREVENTIVE She was given a flu shot today. SOCIAL HISTORY She does not smoke. FAMILY HISTORY Reviewed from [facility] family history tab in the EMR. VITAL SIGNS Reviewed from [facility] evaluation under the vitals tab in the EMR. PHYSICAL EXAMINATION GENERAL: Well-developed, well-nourished female, in no acute distress. SKIN: Scaly circular tender areas on both upper outer thighs. No vesicles or pustules or sign of infection. HEENT: TMs clear. Throat clear. NECK: Supple. No lymphadenopathy or thyromegaly. HEART: Regular rate and rhythm. S1, S2. No murmur. LUNGS: Clear to auscultation. ABDOMEN: Soft, nontender. No hepatosplenomegaly. SPINE: Limited range of motion of the lumbar spine. Tenderness to palpation over the lumbosacral paraspinal musculature. NEUROLOGIC: Deep tendon reflexes 2+ and symmetrical. Straight leg raising is negative bilaterally. IMPRESSION/REPORT/PLAN 1. Rheumatoid arthritis. She will continue to follow with Rheumatology at [facility]. Labs including CBC, AST and creatinine will be done here every 3 months and faxed to Rheumatology at [place]. 2. Lumbar compression fracture. She is given referral to [facility]. She will continue to use Tylenol 325 mg 2 tabs every 4 to 6 hours as needed. 3. Cataracts. She will schedule for eye exam with Dr. Ivy this month. 4. Skin lesions, upper outer thighs. Appointment will be scheduled with Dr. Kebede for further evaluation. Tin Schmidt CNP/viet Electronically Signed By: TIN SCHMIDT CNP On: 12/14/2014 02:56 PM Source: [facility] MHSDOLBEYNONRADSYS Document Id: [id number] documented in this encounter Nursing Notes Hank James L.P.N. - 01/17/2015 9:17 AM CST Panel management call Contacted patient through [employer] in regards to returning the FIT test given to patient by Queenie on 12/14/14. Reminder given. Electronically Signed By: HANK JAMES LPN On: 01/17/2015 09:18 AM Source: [facility] [employer] Document Id: [id number] STANT RESTAURANT GENERAL MANAGER Tin Schmidt APRN, C.NSusi. - 12/14/2014 2:00 PM CDT Ambulatory Patient Education The following [...] For more information contact: ?? Arthritis Foundation [phone], www.arthritis.org ?? National [place] of Arthritis and Musculoskeletal and Skin Diseases (NIAMS) [phone], www.niams.nih.gov Return Promptly or contact your doctor if any of the following occur: ?? Increasing weakness, pale color of the skin, fainting ?? Chest pain or shortness of breath ?? Blood in your vomit or stool (black or red color) ?? Visual changes, skin ulcers ?? [id number] Debbie Rodriguez, [address] [place] [address], [place] [address]. All rights reserved. This information is not intended as a substitute for professional medical care. Always follow your healthcare professional's instructions. Source: [facility] POWERCHART Document Id: [id number] documented in this encounter Miscellaneous Notes Miscellaneous - Jeannette Reeves R.N. - 03/15/2015 11:27 AM CST hydro-apap Document Contains Addenda Addendum by JEANNETTE REEVES RN on 15 March 2015 11:47:12 ASSISTANT RESTAURANT GENERAL MANAGER Pharmacy aware. Addendum by TIN SCHMIDT CNP on 15 March 2015 11:45:28 ASSISTANT RESTAURANT GENERAL MANAGER From: TIN SCHIMDT CNP To: [place] Medication Refill; Sent: 03/15/2015 11:45:28 ASSISTANT RESTAURANT GENERAL MANAGER Subject: RE: hydro-apap Denied, that was for a lumbar fracture in December,. From: JEANNETTE REEVES RN (FB [place] Medication Refill) To: TIN SCHMIDT CNP; Sent: 03/15/2015 11:27:38 ASSISTANT RESTAURANT GENERAL MANAGER Subject: hydro-apap Caller is: ( ) Patient ( ) Mother ( ) Father ( ) Spouse ( ) Daughter ( ) Son ( ) Pharmacy ( ) Other: Provider: [facility]: Name of Medications Needing Refill: hydro-apap 5-325 mg Last Refill Date: 12/23/14 qty 8 Additional Information: 1 tab po HS for 8 days Last / Future Appointment: 12/14/14 Disposition: ( ) Send to Pharmacy ( ) Call to Pharmacy ( x ) Patient will pick pack worker Script ( ) Mail Rxto Patient Source: [facility] POWERCHART Document Id: [id number] Electronically signed by Zaheer, [facility] Asbestos Cloth Inspector [id number] at 07/30/2016 4:11 AM CDT Miscellaneous - Tin Schmidt APRN, C.N.P. - 12/14/2014 2:00 PM CDT Ambulatory Patient Summary [address] [place] [id number] Visit Information Name: ALTHEA ARIAS [facility] Number: [id number] Current Date: 12/14/2014 14:00:17 Physicians Attending Provider: TIN SCHMIDT CNP Primary [...] the Following Medications: Medication list as of 12-14-14 14:00 Attention: If you have any medications at [...] Electronically Signed By: TIN SCHMIDT CNP Signed On:14-DEC-2014 13:59:56 Your Allergies & Intolerances Substance Reaction Symptoms [...] For more information contact: ?? Arthritis Foundation [phone], www.arthritis.org ?? National [place] of Arthritis and Musculoskeletal and Skin Diseases (NIAMS) [phone], www.niams.nih.gov Return Promptly or contact your doctor if any of the following occur: ?? Increasing weakness, pale color of the skin, fainting ?? Chest pain or shortness of breath ?? Blood in your vomit or stool (black or red color) ?? Visual changes, skin ulcers ?? [id number] [place] [address]. All rights reserved. This information is not [...] if you dont have one. Go to [facility] center [email or web address] and click on Create Your Account. Then, follow the directions to complete the online form. Youll be asked for your [facility] number which you can find at the top of this document. Your Goals/Additional instructions: Source: [facility] POWERCHART Document Id: [id number] Miscellaneous - Tin Schmidt APRN, C.N.P. - 12/14/2014 2:00 PM CDT Ambulatory Discharge Medication List [address] [id number] Visit Information Name: CRISTA ARIASUMAdriane Christiansen [facility] Number: [id number] Visit Date: 12/14/2014 14:00:16 Attending Provider: TIN SCHMIDT CNP Primary Care Provider: TIN SCHMIDT CNP ONIEL ALTHEA Kuldip has been given the following [...] the Following Medications: Medication list as of 12-14-14 14:00 Attention: If you have any medications at [...] Electronically Signed By: TIN SCHMIDT CNP Signed On:14-DEC-2014 13:59:56 Additional Information: Source: [facility] POWERCHART Document Id: [id number] Miscellaneous - Gunjan Meza L.PSheltonNShelton - 12/14/2014 1:39 PM CDT Adult Help Desk Team Leader Intake/History Adult Help Desk Team Leader Intake/History Entered On: 12/14/2014 13:42 CDT Performed On: 12/14/2014 13:39 CDT by GUNJAN MEZA LPN Intake Chief Complaint : Up all night. Fever, lower back pain and body feels swollen. Fracture back in June. Wants the flu shot. Temperature Core : 36.7 DegC(Converted to: 98.1 DegF) Peripheral Pulse Rate : 80 /min Respiratory Rate : 16 /min Heart Rhythm : Regular Systolic Blood Pressure : 128 mmHg Diastolic Blood Pressure : 78 mmHg NIBP Mean : 95 mmHg BP Location : Left upper extremity Blood Pressure Cuff Size : Regular Height : 158 cm(Converted to: 5 ft 2 inch(es), 62 inch(es)) Actual Weight : 68.8 kg(Converted to: 151 lb 11 oz) Weight Source : Standing scale Dosing Weight Clinic : 68.8 kg Clinic BSA : 1.74 Body Mass Index : 27.56 kg/m2 GUNJAN MEZA LPN - 12/14/2014 13:39 CDT General Info Information Given By : Patient, Son Preferred Communication Mode : Verbal Languages : Mozambican Is Patient Female and 13-50 no hysterectomy : No GUNJAN MEZA LPN - 12/14/2014 13:39 CDT Subjective Pain Symptoms : Yes GUNJAN MEZA WIRE BORDER ASSEMBLER - 12/14/2014 13:39 CDT Pain Scale Pain Scale Verbal 0-10 : Open GUNJAN MEZA LPN - 12/14/2014 13:39 CDT Pain Pain Assessment Grid Pain 1 Location : Lower back Laterality : Bilateral Intensity : 6 Time Pattern : Intermittent GUNJAN MEZA WIRE BORDER ASSEMBLER - 12/14/2014 13:39 CDT Dependent Habits Tobacco Use/Currently Using : No Tobacco Use/Last 12 months : No Exposure to Tobacco Smoke : Other: never Smoking Status : Never smoker GUNJAN MEZA WIRE BORDER ASSEMBLER - 12/14/2014 13:39 CDT Caffeine Use Grid Caffeine Use : Current Type : Coffee, Tea Frequency : Daily GUNJAN MEZA WIRE BORDER ASSEMBLER - 12/14/2014 13:39 CDT Recreational Drug Use Grid Drug Use : None GUNJAN MEZA WIRE BORDER ASSEMBLER - 12/14/2014 13:39 CDT Source: [employer] Document Id: [id number] CDT!47 documented in this encounter Plan of Treatment Upcoming Encounters Date Type Specialty Care Team Description 02/01/2022 Comprehensive Visit Family Medicine Tin Schmidt, Kuldip PRN, C.N.P. [address] [phone] (Wo rk) documented as of this encounter Visit Diagnoses Not on filedocumented in this encounter
--- OUTSIDE RECORDS SUMMARY | 2022-01-21 23:27 | XMS_ITS | Encounter Summary ---
:1955 Author Organization [facility] Address [address] [place] [address] Care Team Providers Name Role Phone Cynthia Rockwell APRN C.N.PShelton Primary Care Provider [phone] Encounter Details Date Type Department Care Team Description 11/10/2015 Historical Ophthalmology [facility] Juan Ramon Lambert Jr., M.D. [address] [place], [place] [phone] (Wo rk) Social History [...] or relatives? How often do you attend protestant or 1 to 4 times per year 09/01 anabaptist services? Do you belong to any clubs or No 09/18/2018 organizations such as protestant groups, unions, fraternal or athletic groups, or [...] file documented as of this encounter Progress Juan Ramon Mcfadden M.D. - 11/10/2015 9:34 AM CDT Eye General CHIEF COMPLAINT CE HISTORY OF PRESENT ILLNESS No eye troubles or concerns. Says her glasses are broken. pt seems confused, very hard to follow directions today IMPRESSION / REPORT / PLAN #1 Cortical and nuclear cataracts OS > OD New MR RTO 1 year DIAGNOSIS #1 Cortical and nuclear cataracts CDM Reports - EYEGEN Id: [id number] Status: Fnl documented in this encounter Plan of Treatment Upcoming Encounters Date Type Specialty Care Team Description 02/01/2022 Comprehensive Visit Family Medicine Cynthia Rockwell A PRN, C.N.P. [address], [place] [phone] (Wo rk) documented as of this encounter Visit Diagnoses Not on filedocumented in this encounter Additional Health Concerns Infection Onset Date Last Indicated Resolved Time COVID19 Pending 07/15/2019 07/15/2019 07/15/2019 11:56 PM CDT [id number]: >30 days since initial test 07/15/201907/0208/24/2019 9:55 AM CDT Danay Castillo M.D. documented as of this encounter Care Teams Locks Tender Relationship Specialty Start Date End Date Cynthia Rockwell APRN, C.N.P. PCP - General 08/16/16 [address], [place] [phone] documented as of this encounter
--- OUTSIDE RECORDS SUMMARY | 2022-01-21 23:27 | XMS_ITS | Encounter Summary ---
:1955 Author Organization [facility] Address [address] [place] [address] Care Team Providers Name Role Phone Unavailable Primary Care Provider Unavailable Encounter Details Date Type Department Care Team Description 10/18/2015 Hospital Encounter HX [facility] Ilia Cervantes M.D. [address] [place], [place] [phone] (Wo rk) Social History Tobacco Use Types [...] or relatives? How often do you attend scientology or 1 to 4 times per year 09/01 adventism services? Do you belong to any clubs or No 09/18/2018 organizations such as scientology groups, unions, fraternal or athletic groups, or [...] Sign Reading Time Taken Comments Blood Pressure 100/58 10/18/2015 4:38 PM CDT Pulse 72 10/18/2015 4:38 PM CDT Temperature - - Respiratory Rate - - Oxygen Saturation - - Inhaled Oxygen Concentration - - Weight 67.5 kg (148 lb 13 oz) 10/18/2015 4:38 PM CDT Height 158 cm (5' 2.21) 10/18/2015 4:38 PM CDT Body Mass Index 27.04 10/18/2015 4:38 PM CDT documented in this encounter Medications [...] documented as of this encounter Progress Notes Deepak Cervantes M.D. - 10/18/2015 5:25 PM CDT Clinic Full Note CHIEF COMPLAINT/REASON FOR VISIT left sided pain, shortness of breath for 3 days, states that she has more pain when she eats HISTORY OF PRESENT ILLNESS Pt here with new onset left upper quadrant abdominal pain (no diarrhea) x3 days. While not febrile,pt states trying to deep a deep breath reproduces pain in that LUQ. MEDICATIONS acetaminophen 325 mg oral tablet, 650 [...] 150 mg, 1 tab(s), PO, 2xDay, 3 refills, * Senokot Extra 8.6 mg oral tablet, 17.2 mg, 2 tab(s), PO, 2xDay, PRN, * traMADol 50 mg oral tablet, 50 mg, 1 tab(s), PO, q6hr, PRN, 0 refills * indicates non-compliance ALLERGIES NKA PAST MEDICAL [...] Pap smear (05/29/2006). SOCIAL HISTORY Date Time: 10/18/2015 16:41 Tobacco: Smoking Status: Never smoker Exposure: Other: never Alcohol: Use: No Results Found Recreational Drugs: Use: None Type: No Results Found FAMILY HISTORY Sister: Negative: Brother: Negative: Brother:Positive: GERD - Gastro-esophageal reflux disease SYSTEMS REVIEW GENERAL: No weight gain, no [...] no hemoptysis CARDIAC: No valve problems, no chest pain, no chest pressure, no rapid beating, no dependent edema,no pain in calves or with walking, no difficulty moving arms and legs GI: No heartburn, no nausea, no vomiting, LUQ abd pain as aforementioned above (food does not change it, pain worse sitting vs standing) no constipation, no diarrhea, no blood in BMs, no change in BMs : No urethral discharge, no burning/pain with urination, no difficulty starting stream, no difficulty emptying bladder, no excessive urination MUSCULOSKELETAL: No joint pain, no joint swelling, no joint stiffness, no muscle pain, no muscle stiffness, no back pain, no back stiffness.Noting myalgias around the shoulder. SKIN: No skin rashes, no skin sores, no change in moles NEURO: No significant headaches, no slurred speech, no seizures, no dizziness, no loss of consciousness, no memory loss ENDOCRINE: No excessive thirst, no excessive bruising. New onset hypothyroid x 1 month VITAL SIGNS HR: 72 BP: 100 / 58 HT: 158 cm WT: 67.5 kg BMI: 27.04 PHYSICAL EXAMINATION HEAD: nc/at. PERRLA.EOMI. OP clear and unobstructed. Tongue midline with extension and lesion-free NECK: supple. No gross JVD. Thyroid is non-palpable. Trachea midline LUNGS: clear to auscultation. No wheezes, rales or egophony. No stridor CV: regular, Normal s1 and s2. No murmur or rub. ABD: Soft, non-distended. tender LUQ as well as left flank. No suprapubic discomfort. No CVA tenderness. No palpable pulsatile masses. EXTR: no clubbing, cyanosis, or edema. Capillary refill at 2 seconds throughout both upper and lower extremities bilaterally NEURO: Aware and oriented x3. rn visiting II-XII grossly intact and non-focal. PSYCH: pt is euthymic. Pt shows no delusions or hallucinations. Pt denies any violent ideation. No psychomotor agitation present. Speech normal flow. Insight adequate. IMPRESSION/REPORT/PLAN Arthritis Rheumatoid Has Rheum f/u at [facility] within 1 month Ordered: OV Est Pt Level 4 - 91078 - 25 min Myalgia NOS Refer to PT at [facility]. Ordered: OV Est Pt Level 4 - 79931 - 25 min Pain Abdominal L Upper Quadrant (LUQ) Noted relatively low WBC last month during labs, will obtain CT abdomen. Ordered: OV Est Pt Level 4 - [id number] - 25 min Electronically Signed By: DEEPAK CERVANTES MD On: 10/18/2015 05:35 PM Source: [facility] [place] Document Id: [id number] documented in this encounter Miscellaneous Notes Miscellaneous - Deepak Cervantes M.D. - 10/27/2015 8:23 AM CDT Results Notification Document Contains Addenda Addendum by LINSEY RAMIREZ LPN on October 31, 2015 14:21:32 CDT Patient's daughter informed of CT result, transfered to front desk admin to schedule an appointment for mammogram and UA. Addendum by NATASHA MESSINA LPN on October 27, 2015 08:56:50 CDT Using [employer], message left for patient to return my call. From: DEEPAK CERVANTES MD To: MOSHE Cervantes Nurse; Sent: 10/27/2015 08:23:39 CDT ! Show up: 10/27/2015 08:24:00 CDT Subject: Results Notification Actions: Notify patient-refer to General Message, Note to Nurse CT generally normal. Incidnetal breast nodule noted as well as bladder thickening. Screening MMG ordered. Lab only UA ordered. Results: Date Result Type Result Name 10/26/2015 10:52 Document - mdoc Computerized Tomography Scanned Source: [facility] [place] Document Id: [id number] Miscellaneous - Linsey Ramirez L.P.NShelton - 10/18/2015 5:25 PM CDT *General Message Document Contains Addenda Addendum by LINSEY RAMIREZ LPN on October 20, 2015 07:34:15 CDT Faxed to [facility] Addendum by DELMAR PIERCE on October 19, 2015 09:51:47 CDT From: DELMAR PIERCE ([facility]sembl[facility]/Radiology [facility]) To: MOSHE Cervantes Nurse; Sent: 10/19/2015 09:51:47 CDT Subject: RE: *General Message No auth needed From: LINSEY RAMIREZ LPN (MOSHE Cervantes Nurse) To: [facility]Radiology [facility]; Sent: 10/18/2015 17:25:40 CDT Subject: *General Message Patient referred to Provider or Facility: [facility] Ordering Provider: Dr. Cervantes Appointment date (if known): Imaging Service Ordered: (list CPT code or body part to be scanned): _W/ Contrast _W/O Contrast _W/O Contrast followed by with X_CT/CTA - abdomen _MRI _MRA _PET _Nuclear Cardiology Study _Other (list): Diagnosis ( CPT code if Known): abdomen pain Injury Related: no If yes, date and time of Injury: Source: [facility] [employer] Document Id: [id number] Electronically signed by Zaheer [facility] Inspector And Tester [id number] at 07/29/2016 12:57 AM CDT Miscellaneous - Linsey Ramirez, L.P.N. - 10/18/2015 4:38 PM CDT Adult Group Social Worker Intake/History Adult Group Social Worker Intake/History Entered On: 10/18/2015 16:41 CDT Performed On: 10/18/2015 16:38 CDT by LINSEY RAMIREZ LPN Intake Peripheral Pulse Rate : 72 /min Heart Rhythm : Regular Systolic Blood Pressure : 100 mmHg Diastolic Blood Pressure : 58 mmHg NIBP Mean : 72 mmHg BP Location : Right upper extremity Blood Pressure Cuff Size : Large LINSEY RAMIREZ LPN - 10/18/2015 16:41 CDT Chief Complaint : left sided pain, shortness of breath for 3 days, states that she has more pain when she eats Height : 158 cm(Converted to: 5 ft 2 inch(es), 62 inch(es)) Actual Weight : 67.5 kg(Converted to: 148 lb 13 oz) Weight Source : Standing scale Dosing Weight Clinic : 67.5 kg Clinic BSA : 1.72 Body Mass Index : 27.04 kg/m2 LINSEY RAMIREZ RAGHAV - 10/18/2015 16:38 CDT General Info Information Given By : Patient, Daughter Preferred Communication Mode : Verbal Languages : Ana Is Patient Female and 13-50 no hysterectomy : No ANASTACIADANIELLELINSEYCANDELARIO Sung LPN - 10/18/2015 16:38 CDT Subjective Pain Symptoms : Yes ANASTACIADANIELLELINSEY Lazara RAGHAV - 10/18/2015 16:38 CDT Pain Scale Pain Scale Verbal 0-10 : Open ANASTACIADANIELLELINSEYCANDELARIO Sung LPN - 10/18/2015 16:38 CDT Pain Pain Assessment Grid Pain 1 Location : Abdomen Laterality : Left TOMIBRI LINSEY Sung LPN - 10/18/2015 16:38 CDT Dependent Habits Exposure to Tobacco Smoke : Other: never Smoking Status : Never smoker Tobacco 2A : No Tobacco Use/Currently Using : No Tobacco Use/Last 30 Days : No Tobacco Use/Last 12 months : No ANASTACIALINSEY Lazara [employer] D[employer]IVATIVES TRADER - 10/18/2015 16:38 CDT Caffeine Use Grid Caffeine Use : Current Type : Coffee, Tea Frequency : Daily ANASTACIA LINSEY Sung LPN - 10/18/2015 16:38 CDT Recreational Drug Use Grid Drug Use : None ANASTACIADANIELLELINSEYCANDELARIO Sung LPN - 10/18/2015 16:38 CDT Source: [facility] Document Id: [id number]!45 documented in this encounter Plan of Treatment Upcoming Encounters Date Type Specialty Care Team Description 02/01/2022 Comprehensive Visit Family Medicine Cynthia Rockwell A PREstevan, C.N.P. [address], [place] [phone] (Wo rk) documented as of this encounter Visit Diagnoses Not on filedocumented in this encounter
--- OUTSIDE RECORDS SUMMARY | 2022-01-21 23:27 | XMS_ITS | Encounter Summary ---
:1955 Author Organization [facility] Address [address] [place] [address] Care Team Providers Name Role Phone Unavailable Primary Care Provider Unavailable Encounter Details Date Type Department Care Team Description 09/22/2015 Hospital Encounter HX [facility] FAMILYPRA Ilia Cervantes M.D. [address] [place], [place] [address] (Wo rk) Social History [...] Sign Reading Time Taken Comments Blood Pressure 102/58 09/22/2015 9:21 AM CDT Pulse 72 09/22/2015 9:21 AM CDT Temperature - - Respiratory Rate - - Oxygen Saturation - - Inhaled Oxygen Concentration - - Weight 67 kg (147 lb 11.3 oz) 09/22/2015 9:21 AM CDT Height 158 cm (5' 2.21) 09/22/2015 9:21 AM CDT Body Mass Index 26.84 09/22/2015 9:21 AM CDT documented in this encounter Medications [...] encounter Progress Notes Deepak Cervantes M.D. - 09/22/2015 10:09 AM CDT Clinic Full Note CHIEF COMPLAINT/REASON FOR VISIT body aches and fever for a long time, she states that she feels very hot at night when she is trying to sleep HISTORY OF PRESENT ILLNESS Pt here with son, who is interpreting. SHe states she has ongoing low back pain without radiation as well as sensation of fever at night over the last several years. She has hx of RA, claims compliance on meds although she is not compliant with [facility] Rheumatology f/u. MEDICATIONS acetaminophen 325 mg oral tablet, 650 mg, 2 tab(s), PO, q4hr, PRN, 1 refills Arava 20 mg oral tablet, 20 mg, 1 tab(s), PO, Daily Calcium 600+D, 1 tab, PO, 2xDay folic acid 1 mg oral tablet, 1 mg, 1 tab(s), PO, Daily meclizine 25 mg oral tablet, 25 mg, [...] Pap smear (05/29/2006). SOCIAL HISTORY Date Time: 09/22/2015 09:21 Tobacco: Smoking Status: Never smoker Exposure: Other: never Alcohol: Use: No Results Found Recreational Drugs: Use: None Type: No Results Found FAMILY HISTORY Sister: Negative: Brother: Negative: Brother:Positive: GERD - Gastro-esophageal reflux disease SYSTEMS REVIEW GENERAL: No weight gain, noted minimal weight loss, tactile nocturnal fever in past two years per pt, no chills, no sweats, no fatigue EENT: [...] difficulty emptying bladder, no excessive urination MUSCULOSKELETAL: RA as aforementioned above SKIN: No skin rashes, no skin sores, no change in moles NEURO: No significant headaches, no slurred speech, no seizures, no dizziness, no loss of consciousness, no memory loss ENDOCRINE: No excessive thirst, no excessive bruising. VITAL SIGNS T: 36.4 ??C (Core) HR: 72 BP: 102 / 58 HT: 158 cm WT: 67 kg BMI: 26.84 PHYSICAL EXAMINATION HEAD: nc/at. PERRLA.EOMI. OP clear and unobstructed. Tongue midline with extension and lesion-free NECK: supple. No gross JVD. Thyroid is non-palpable. Trachea midline LUNGS: clear to auscultation. No wheezes, rales or egophony. No stridor CV: regular, Normal s1 and s2. No murmur or rub. ABD: Soft, non-distended. Non-tender. No suprapubic discomfort. No CVA tenderness. No palpable pulsatile masses. EXTR: no clubbing, cyanosis, or edema. Capillary refill at 2 seconds throughout both upper and lower extremities bilaterally SKIN: spots on thighs (previosuly noted) NEURO: Aware and oriented x3. 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 PSYCH: pt is euthymic. Pt shows no delusions or hallucinations. Pt denies any violent ideation. No psychomotor agitation present. Speech normal flow. Insight adequate. IMPRESSION/REPORT/PLAN Arthritis Rheumatoid F/U in MCR. Labs per EMR orders. Refer to Ophthalmology. Her level of symptomaticity is still notable despite current meds Ordered: Antinuclear Antibody-Cotati [employer]26 Automated Diff-5 Part CBC (includes Auto Differential) Comprehensive Metabolic Panel, Fasting* Hemoglobin A1c Lipid Panel* OV Est Pt Level 5 - 18985 - 40 min Thyroid Stimulating Hormone Cataract NOS Per hx. F/U with Ophthalmology Ordered: Antinuclear Antibody-Cotati [employer]26 Automated Diff-5 Part CBC (includes Auto Differential) Comprehensive Metabolic Panel, Fasting* Hemoglobin A1c Lipid Panel* OV Est Pt Level 5 - 40597 - 40 min Thyroid Stimulating Hormone Fx Vertebra Compression Lumbar Closed Subsequent Based on hx of fall 06/2014. After d/w pt regarding risks and benefits, the pt accepts script for Tramadol per EMR orders. Ordered: Antinuclear Antibody-Cotati 9026 Automated Diff-5 Part CBC (includes Auto Differential) Comprehensive Metabolic Panel, Fasting* Hemoglobin A1c Lipid Panel* OV Est Pt Level 5 - 73292 - 40 min Thyroid Stimulating Hormone Lesion Skin Leg Refer to Dermatology/Dr. Kebede Ordered: Antinuclear Antibody-Cotati 9026 Automated Diff-5 Part CBC (includes Auto Differential) Comprehensive Metabolic Panel, Fasting* Hemoglobin A1c Lipid Panel* OV Est Pt Level 5 - 35997 - 40 min Thyroid Stimulating Hormone Orders: traMADol, 50 mg = 1 tab(s), PO, q6hr, PRN Pain, # 60 tab(s), 0 Refill(s), Acute Consult to Ophthalmology Electronically Signed By: DEEPAK CERVANTES MD On: 09/22/2015 10:21 AM Source: [facility] POWERCHART Document Id: [id number] documented in this encounter Nursing Notes Deepak Cervantes M.D. - 09/22/2015 10:03 AM CDT Ambulatory Patient Education The following Patient Education Materials have been given to the patient: Patient Education Materials: Rheumatology What Is Rheumatoid Arthritis? Rheumatology What Is Rheumatoid Arthritis? Rheumatoid arthritis is a disease that affects the lining of the joints, causing pain, swelling, andstiffness. Left untreated, rheumatoid arthritis may damage joints so badly that they no longer function. This disease appears most often in young-adult to middle-age women. To diagnose rheumatoid arthritis, your doctor will ask about your health history and perform an exam. X-rays and blood tests may also be needed. Rheumatoid arthritis affects the lining (synovium) of the joints, sometimes causing swelling. Symptoms Rheumatoid arthritis can affect most joints. But people tend to feel it in their fingers and wrists.The elbows, knees, and balls of the feet are also common sites. This disease often affects the same joint on both sides of the body. Symptoms may include: ?? Tender, inflamed joints. They may look red and feel warm. ?? Stiff joints. Long periods of rest or using a joint too long or too hard can make stiffness worse. ?? Joints that have lost normal shape and motion. ?? Feeling tired all the time. Sources of Support Dont be afraid to seek support. If you have fears or concerns about your health, talk with your health care provider. Also talk with other people who have rheumatoid arthritis. They know what youre going through. Perhaps they can provide insight and offer new ways to cope. For more i nformation, contact the Ar[employer] at [phone]. If Surgery Is Needed For people with severe joint damage, surgery can help decrease pain and make it easier to use a joint. Joint replacement, usually of the hip or knee, is one of the most common surgeries for this condition. Other types of surgery may be done to help control problems in the hands or feet. ?? [id number] [place] [address]. All rights reserved. This information is not intended as a substitute for professional medical care. Always follow your healthcare professional's instructions. This document has images extracted. Please consider using CoverMe for all your patient education needs. Source: [facility] POWERCHART Document Id: [id number] Deepak Cervantes M.D. - 09/22/2015 10:03 AM CDT Ambulatory Patient Education The following Patient Education Materials have been given to the patient: Patient Education Materials: Rheumatology What Is Rheumatoid Arthritis? Rheumatology What Is Rheumatoid Arthritis? Rheumatoid arthritis is a disease that affects the lining of the joints, causing pain, swelling, andstiffness. Left untreated, rheumatoid arthritis may damage joints so badly that they no longer function. This disease appears most often in young-adult to middle-age women. To diagnose rheumatoid arthritis, your doctor will ask about your health history and perform an exam. X-rays and blood tests may also be needed. Rheumatoid arthritis affects the lining (synovium) of the joints, sometimes causing swelling. Symptoms Rheumatoid arthritis can affect most joints. But people tend to feel it in their fingers and wrists.The elbows, knees, and balls of the feet are also common sites. This disease often affects the same joint on both sides of the body. Symptoms may include: ?? Tender, inflamed joints. They may look red and feel warm. ?? Stiff joints. Long periods of rest or using a joint too long or too hard can make stiffness worse. ?? Joints that have lost normal shape and motion. ?? Feeling tired all the time. Sources of Support Dont be afraid to seek support. If you have fears or concerns about your health, talk with your health care provider. Also talk with other people who have rheumatoid arthritis. They know what youre going through. Perhaps they can provide insight and offer new ways to cope. For more i nformation, contact the Ar[employer] at [phone]. If Surgery Is Needed For people with severe joint damage, surgery can help decrease pain and make it easier to use a joint. Joint replacement, usually of the hip or knee, is one of the most common surgeries for this condition. Other types of surgery may be done to help control problems in the hands or feet. ?? [id number] [place] [address]. All rights reserved. This information is not intended as a substitute for professional medical care. Always follow your healthcare professional's instructions. This document has images extracted. Please consider using CoverMe for all your patient education needs. Source: [facility] POWERCHART Document Id: [id number] documented in this encounter Miscellaneous Notes Miscellaneous - Deepak Cervantes M.D. - 09/26/2015 1:09 PM CDT Results Notification Document Contains Addenda Addendum by LINSEY RAMIREZ LPN on September 26, 2015 13:56:26 CDT Patient is being followed by Rheumatology. From: DEEPAK CERVANTES MD To: MOSHE Cervanets Nurse; Sent: 09/26/2015 13:09:04 CDT Show up: 09/26/2015 13:09:00 CDT Subject: Results Notification Actions: Notify patient-refer to General Message, Note to Nurse pt should be referred to Rheumatology at [facility] already. This + FREDDY is merits monitoring presently. I'll leave it to Rheumatology if they want further testin at time of their appt with her. Rheum is seeing her, right? Results: Date Result Name Ind Value Ref Range 09/22/2015 10:08 FREDDY-Rodriguez (H) 1.3 units (<=1.0 (Negative) - ) Source: [facility] POWERCHART Document Id: [id number] Electronically signed by Conversion, [facility] Mechanical Shop Laborer [id number] at 07/29/2016 12:38 PM CDT Miscellaneous - Deepak Cervantes M.D. - 09/22/2015 2:11 PM CDT Results Notification Document Contains Addenda Addendum by LINSEY RAMIREZ LPN on September 22, 2015 16:25:51 CDT Patient's son informed of message below. He will be picking up prescription. From: DEEPAK CERVANTES MD To: MOSHE Cervantes Nurse; Sent: 09/22/2015 14:11:49 CDT Show up: 09/22/2015 14:11:00 CDT Subject: Results Notification Actions: Notify patient-refer to General Message, Note to Nurse pt now with hypothyroidism as well. This may make her feel chilled. Medication prescribed to take once daily, keep refilling month after month. Rechecek TSH in 3 months to assess for efficacy of medicationand adjust dose if needed.. Med script sent to [facility] and future labs ordered Results: Date Result Name Ind Value Ref Range 09/22/2015 10:08 Sodium Lvl 142 mmol/L (135 - 145) 09/22/2015 10:08 Potassium Lvl 4.0 mmol/L (3.6 - 5.2) 09/22/2015 10:08 Chloride 105 mmol/L (98 - 107) 09/22/2015 10:08 CO2 26 mmol/L (22 - 29) 09/22/2015 10:08 AGAP 11 mmol/L (7 - 15) 09/22/2015 10:08 Alkaline Phosphatase 69 unit/L (46 - 118) 09/22/2015 10:08 Glucose Fasting 98 mg/dL (70 - 99) 09/22/2015 10:08 Creatinine 0.70 mg/dL (0.60 - 1.10) 09/22/2015 10:08 EGFR (MDRD) >60 mL/min/1.73m2 (>=60 - ) 09/22/2015 10:08 EGFR (MDRD) >60 mL/min/1.73m2 (>=60 - ) 09/22/2015 10:08 BUN 11 mg/dL (6 - 21) 09/22/2015 10:08 Calcium Lvl 8.9 mg/dL (8.0 - 10.3) 09/22/2015 10:08 Protein Total 6.7 G/DL (6.3 - 7.9) 09/22/2015 10:08 Albumin Lvl 3.5 G/DL (3.2 - 5.2) 09/22/2015 10:08 AST 18 unit/L (8 - 43) 09/22/2015 10:08 ALT 12 unit/L (7 - 45) 09/22/2015 10:08 Bili Total 0.2 mg/dL (0.1 - 1.0) 09/22/2015 10:08 Cholesterol 159 mg/dL ( - <=199) 09/22/2015 10:08 Trig 97 mg/dL ( - <=149) 09/22/2015 10:08 HDL (L) 47 mg/dL (>=50 - ) 09/22/2015 10:08 LDL/HDL 2 09/22/2015 10:08 TSH (H) 6.61 mIU/L (0.27 - 4.20) Source: [facility] POWERCHART Document Id: [id number] Electronically signed by Conversion, [facility] Mechanical Shop Laborer [id number] at 07/29/2016 12:38 PM CDT Miscellaneous - Deepak Cervantes M.D. - 09/22/2015 10:03 AM CDT Ambulatory Patient Summary [address] [facility] [place], [place] [id number] Visit Information Name: ALTHEA ARIAS [facility] Number: [id number] Current Date: 09/22/2015 10:03:31 Physicians Attending Provider: DEEPAK CERVANTES MD Primary Care Provider: TIN SCHMIDT APRN CHAIRMAN & CHIEF EXECUTIVE OFFICER ALTHEA ARIAS has been given the following list of follow-up instructions, medication list, andpatient education materials: Follow-up Instructions With: Address: When: Follow up with primary care provider , only if needed Your Medications Here is a list of [...] times a day as needed for Constipation traMADol (traMADol 50 mg oral tablet) 1 Tablet(s), Oral, every 6 hours as needed for Pain New Routedto Printer Stop Taking the Following Medications: Medication list as of 09-22-15 10:03 Attention: If you have any medications at home that are not on this list, DO NOT take them until youcontact your provider for clarification. Give a copy of your medication list to your primary care provider. Update your medication list any time medications or doses are changed and carry your medication list at all times in case of emergency. Electronically Signed By: DEEPAK CERVANTES MD Signed On:22-SEP-2015 10:03:05 Your Allergies & Intolerances Substance Reaction Symptoms [...] local Clinic if further appointment detail needed. What Is Rheumatoid Arthritis? Rheumatoid arthritis is a disease that affects the lining of the joints, causing pain, swelling, andstiffness. Left untreated, rheumatoid arthritis may damage joints so badly that they no longer function. This disease appears most often in young-adult to middle-age women. To diagnose rheumatoid arthritis, your doctor will ask about your health history and perform an exam. X-rays and blood tests may also be needed. Rheumatoid arthritis affects the lining (synovium) of the joints, sometimes causing swelling. Symptoms Rheumatoid arthritis can affect most joints. But people tend to feel it in their fingers and wrists.The elbows, knees, and balls of the feet are also common sites. This disease often affects the same joint on both sides of the body. Symptoms may include: ?? Tender, inflamed joints. They may look red and feel warm. ?? Stiff joints. Long periods of rest or using a joint too long or too hard can make stiffness worse. ?? Joints that have lost normal shape and motion. ?? Feeling tired all the time. Sources of Support Dont be afraid to seek support. If you have fears or concerns about your health, talk with your health care provider. Also talk with other people who have rheumatoid arthritis. They know what youre going through. Perhaps they can provide insight and offer new ways to cope. For more i nformation, contact the Arthritis Foundation at [phone]. If Surgery Is Needed For people with severe joint damage, surgery can help decrease pain and make it easier to use a joint. Joint replacement, usually of the hip or knee, is one of the most common surgeries for this condition. Other types of surgery may be done to help control problems in the hands or feet. ?? [id number] Debbie Rodriguez, [address] [place] [address], [place] [address]. All rights reserved. This information is not [...] if you dont have one. Go to [email or web address] and click on Create Your Account. Then, follow the directions to complete the online form. Youll be asked for your [facility] number which you can find at the top of this document. Your Goals/Additional instructions: This document has images extracted. Please consider using CoverMe for all your patient education needs. Source: [facility] POWERCHART Document Id: [id number] Miscellaneous - Deepak Cervantes M.D. - 09/22/2015 10:03 AM CDT Ambulatory Discharge Medication List [address] [phone] Visit Information Name: ALTHEA ARIAS [facility] Number: [id number] Visit Date: 09/22/2015 10:03:30 Attending Provider: DEEPAK CERVANTES MD Primary Care Provider: TIN SCHMIDT APRN CHAIRMAN & CHIEF EXECUTIVE OFFICER ALTHEA ARIAS has been given the following [...] times a day as needed for Constipation traMADol (traMADol 50 mg oral tablet) 1 Tablet(s), Oral, every 6 hours as needed for Pain New Routedto Printer Stop Taking the Following Medications: Medication list as of 09-22-15 10:03 Attention: If you have any medications at home that are not on this list, DO NOT take them until youcontact your provider for clarification. Give a copy of your medication list to your primary care provider. Update your medication list any time medications or doses are changed and carry your medication list at all times in case of emergency. Electronically Signed By: DEEPAK CERVANTES MD Signed On:22-SEP-2015 10:03:05 Additional Information: Source: [facility] POWERCHART Document Id: [id number] Miscellaneous - Linsey Ramirez, LSheltonP.N. - 09/22/2015 9:21 AM CDT Adult Transformation Manager Intake/History Adult Transformation Manager Intake/History Entered On: 09/22/2015 9:25 CDT Performed On: 09/22/2015 9:21 CDT by LINSEY RAMIREZ LPN Intake Chief Complaint : body aches and fever for a long time, she states that she feels very hot at night when she is trying to sleep Temperature Core : 36.4 DegC(Converted to: 97.5 DegF) (LOW) Peripheral Pulse Rate : 72 /min Heart Rhythm : Regular Systolic Blood Pressure : 102 mmHg Diastolic Blood Pressure : 58 mmHg NIBP Mean : 73 mmHg BP Location : Left upper extremity Blood Pressure Cuff Size : Regular Height : 158 cm(Converted to: 5 ft 2 inch(es), 62 inch(es)) Actual Weight : 67 kg(Converted to: 147 lb 11 oz) Weight Source : Standing scale Dosing Weight Clinic : 67 kg Clinic BSA : 1.71 Body Mass Index : 26.84 kg/m2 LINSEY RAMIREZ LPN - 09/22/2015 9:21 CDT General Info Information Given By : Patient, Son Preferred Communication Mode : Verbal Languages : Ana Is Patient Female and 13-50 no hysterectomy : No LINSEY RAMIREZ LPN - 09/22/2015 9:21 CDT Subjective Pain Symptoms : Yes LINSEY RAMIREZ LPN - 09/22/2015 9:21 CDT Pain Scale Pain Scale Verbal 0-10 : Open LINSEY RAMIREZ LPN - 09/22/2015 9:21 CDT Pain Pain Assessment Grid Pain 1 Pain 2 Location : Generalized Lower back Laterality : Bilateral LINSEY RAMIREZ LPN - 09/22/2015 9:21 CDT LINSEY RAMIREZ LPN - 09/22/2015 9:21 CDT Dependent Habits Exposure to Tobacco Smoke : Other: never Smoking Status : Never smoker Tobacco 2A : No Tobacco Use/Currently Using : No Tobacco Use/Last 30 Days : No Tobacco Use/Last 12 months : No LINSEY RAMIREZ LPN - 09/22/2015 9:21 CDT Caffeine Use Grid Caffeine Use : Current Type : Coffee, Tea Frequency : Daily LINSEY RAMIREZ LPN - 09/22/2015 9:21 CDT Recreational Drug Use Grid Drug Use : None LINSEY RAMIREZ LPN 09/22/2015 9:21 CDT Source: [employer] Document Id: [id number]!48 documented in this encounter Plan of Treatment Upcoming Encounters Date Type Specialty Care Team Description 02/01/2022 Comprehensive Visit Family Medicine Tin Schmidt A PRN, C.N.P. [address] [phone] (Wo rk) documented as of this encounter Procedures Procedure Name Priority Date/Time Associated Comments Diagnosis LIPID PANEL, S Routine 09/22/2015 10:08 Results f or this AM CDT procedure are i n the results section. AUTOMATED Routine 09/22/2015 10:08 Results for this DIFFERENTIAL, B AM CDT procedure ar e in the results section. CBC WITH DIFFERENTIAL, Routine 09/22/2015 10:08 R esults for this B AM CDT procedure are i n the results section. ANTINUCLEAR ABS (FREDDY), Routine 09/22/2015 10:08 R esults for this S AM CDT procedure are i n the results section. THYROID-STIMULATING Routine 09/22/2015 10:08 Resu lts for this HORMONE-SENSITIVE AM CDT procedure are in (S-TSH) the results section. HEMOGLOBIN A1C, B Routine 09/22/2015 10:08 Result s for this AM CDT procedure are i n the results section. COMPREHENSIVE Routine 09/22/2015 10:08 Results fo r this METABOLIC PANEL, S/P AM CDT procedu re are in the results section. documented in this encounter Results (ABNORMAL) Automated Differential (09/22/2015 10:08 AM CDT) [facility] gist Method Time Signature Absolute 1.50 (L) 1.70 - POWERCHART Neutrophils 7.00 109L Lymphocytes 0.88 (L) 0.90 - POWERCHART 2.90 X109L Monocytes 0.27 (L) 0.30 - POWERCHART 0.90 X109L Eosinophils 0.14 0.05 - POWERCHART 0.50 X109L Absolute 0.01 0.00 - POWERCHART Basophil 0.30 X109L Specimen Anatomical Collection Method Collection Time Receive d Time (Source) Location / / Volume Laterality Blood 09/22/2015 10:08 09/22/2015 AM CDT 10:08 AM CDT Deepak Cervantes M.D. LAB BLOOD ADD-ON Performing Organization Address City/State/ZIP Code Phon e Number POWERCHART (ABNORMAL) CBC with Differential (09/22/2015 10:08 AM CDT) P athologist Signature Leukocytes 2.8 (L) 3.4 - 10.5 POWERCHART X109L Erythrocytes 4.20 3.90 - POWERCHART 5.03 [id number] Hemoglobin 12.4 12.0 - POWERCHART 15.5 GDL Hematocrit 38.4 34.9 - POWERCHART 44.5 MCV 91.4 82.0 - POWERCHART 98.0 FL Platelet Count 187 150 - 450 POWERCHART X109L HX RDW 13.7 11.9 - POWERCHART 15.5 Specimen (Source) Anatomical Collection Method Collection Time Re ceived Time Location / / Volume Laterality Blood 09/22/2015 10:08 AM CDT Deepak Cervantes M.D. LAB BLOOD ADD-ON Performing Organization Address City/State/ZIP Code Phon e Number POWERCHART (ABNORMAL) FREDDY (Antinuclear Antibodies) (09/22/2015 10:08 AM CDT) Analysis Performed At Patho logist Time Signature Antinuclear Ab 1.3 (H) <=1.0 POWERCHART Screen by IFA, S (Negative) UNITS Comment: Interpretation: Weak Positive (1.1-2.9) Test Performed by: [place] [address] Staff Veterinarian: Ciaran Dumont II, M.D., Ph.D. Specimen (Source) Anatomical Collection Method Collection Time Re ceived Time Location / / Volume Laterality Blood 09/22/2015 10:08 AM CDT Deepak Cervantes M.D. LAB BLOOD ADD-ON Performing Organization Address City/State/ZIP Code Phon e Number POWERCHART (ABNORMAL) Lipid Panel (09/22/2015 10:08 AM CDT) P athologist Signature Calculated LDL 93 <=129 MGDL POWERCHART Comment: 2014 National Lipid Association recommen dations for LDL-C in adults ages 18 and up: Desirable <100 mg/dL Above desirable 100-129 mg/dL Borderline high 130-159 mg/dL High 160-189 mg/dL Very High 190 mg/dL 2014 National Lipid Association recommen dations for LDL-C in children ages 2 to 17. Acceptable <110 mg/dL Borderline High 110-129mg/dL High 130 mg/dL LDL-C >190mg/dL: The markedly elevated LDL level is suggestive of a genetic condition such as familial hypercholesterolemia(FH) or familial defective apolipoprotein B-100 (FDB). Molecular genetic t esting for FH and FDB is available nicholas carlos [facility]: FH/ADH Genetic Reflex [place] (test ADHP). Acquired (non-genetic) causes of markedly increased LDL cholesterol include cholestatic liver disease due to the presence of LpX. If a genetic form of hypercholesterolemia is suspected, family studies including biochemical testing fo r lipids (total cholesterol,triglycerides, LDL cholesterol and HDL cholesterol) are recommended. ??Please contact the laboratory at or the on-line test catalog at [employer] for information about how to order these rhett ts or to speak with a genetic counselor. Further interpretation would require clinical information. Total Cholesterol/HDL Ratio 3.38 PO WERCHART Cholesterol, Total 159 <=199 MGDL POWERCHART Comment: 2014 National Lipid Association recommen dations for Total Cholesterol in adults ages 18 and up: Desirable <200 mg/dL Borderline high 200-239 mg/dL High 240 mg/dL 2014 National Lipid Association recommen dations for Total Cholesterol in children ages 2 to 17. Acceptable <170 mg/dL Borderline High 170-199 mg/dL High 200 mg/dL HX HDL 47 (L) >=50 MGDL POWERCHART Comment: 2014 National Lipid Association recommen dations for HDL-C in adults ages 18 and up: Low <40 mg/dL (Men) Low <50 mg/dL (Women) 2014 National Lipid Association recommen dations for HDL-C in children ages 2 to 17. Low <40 mg/dL Borderline Low 40-45 mg/dL Acceptable >45 mg/dL Triglycerides 97 <=149 MGDL POWERCHART Comment: 2014 National Lipid Association recommen dations for Triglycerides in adults ages 18 and up: Normal <150 mg/dL Borderline High 150-199 mg/dL High 200-499 mg/dL Very High 500 mg/dL 2014 National Lipid Association recommen dations for Triglycerides in children ages 2 to 9. Acceptable <75 mg/dL Borderline High 75-99 mg/dL High 100 mg/dL 2014 National Lipid Association recommen dations for Triglycerides in children ages 10 to 17. Acceptable <90 mg/dL Borderline High 90-129 mg/dL High 130 mg/dL Trigs >400mg/dL: Triglycerides >400 mg/ dL. Calculated LDL cholesterol is not valid. Non-HDL cholesterol may be used for risk assessment when triglycerides are >400mg/dL. HXLDL/HDL 2 POWERCHART Specimen (Source) Anatomical Collection Method Collection Time Re ceived Time Location / / Volume Laterality Blood 09/22/2015 10:08 AM CDT Deepak Cervantes M.D. LAB BLOOD ADD-ON Performing Organization Address City/State/ZIP Code Phon e Number POWERCHART (ABNORMAL) Thyroid-Stimulating Hormone-Sensitive (s-TSH) (09/22/2015 10:08 AM CDT) P athologist Signature TSH 6.61 (H) 0.27 - POWERCHART (Thyrotropin) 4.20 MIUL Specimen (Source) Anatomical Collection Method Collection Time Re ceived Time Location / / Volume Laterality Blood 09/22/2015 10:08 AM CDT Deepak Cervantes M.D. LAB BLOOD ADD-ON Performing Organization Address City/[facility]/ZIP Code Phon e Number POWERCHART Hemoglobin A1c (09/22/2015 10:08 AM CDT) P athologist Signature Hemoglobin A1c, 5.2 <=5.6 A1C POWERCHART B Specimen (Source) Anatomical Collection Method Collection Time Re ceived Time Location / / Volume Laterality Blood 09/22/2015 10:08 AM CDT Deepak Cervantes M.D. LAB BLOOD ADD-ON Performing Organization Address City/[facility]/ZIP Code Phon e Number POWERCHART CMP (Comprehensive Metabolic Panel) (09/22/2015 10:08 AM CDT) Patholo gist Method Time Signature Alanine 12 7 - 45 POWERCHART Amniotransferase, LD UNITL Albumin, S 3.5 3.2 - 5.2 POWERCHART GDL Alkaline 69 46 - 118 POWERCHART Phosphatase, S UNITL Aspartate 18 8 - 43 POWERCHART Aminotransferase UNITL (AST), S Sodium, S 142 135 - 145 POWERCHART MMOLL Potassium, S 4.0 3.6 - 5.2 POWERCHART MMOLL Chloride, S 105 98 - 107 POWERCHART MMOLL CO2 Total 26 22 - 29 POWERCHART MMOLL Glucose, Fasting, S 98 70 - 99 POWERCHART MGDL BUN (Blood Urea 11 6 - 21 POWERCHART Nitrogen), S MGDL Creatinine 0.70 0.60 - POWERCHART 1.10 MGDL Calcium, Total, S 8.9 8.0 - POWERCHART 10.3 MGDL Anion Gap 11 7 - 15 POWERCHART MMOLL HXeGFR (MDRD) >60 >=60 POWERCHART [id number] 2 eGFR Black/ >60 >=60 POWERCHART [place] [id number] 2 Bilirubin, Total, S 0.2 0.1 - 1.0 POWERCHART MGDL Total Protein, S 6.7 6.3 - 7.9 POWERCHART GDL Specimen (Source) Anatomical Collection Method Collection Time Re ceived Time Location / / Volume Laterality Blood 09/22/2015 10:08 AM CDT Deepak Cervantes M.D. LAB BLOOD ADD-ON Performing Organization Address City/State/ZIP Code Phon e Number POWERCHART documented in this encounter Visit Diagnoses Not on filedocumented in this encounter
--- OUTSIDE RECORDS SUMMARY | 2022-01-21 23:27 | XMS_ITS | Encounter Summary ---
:1955 Author Organization [facility] Address [address] [place] [address] Care Team Providers Name Role Phone Unavailable Primary Care Provider Unavailable Encounter Details Date Type Department Care Team Description 06/29/2015 Hospital Encounter HX [facility] Kari Schmidt, HEALTH TECHNICIAN, C.N.P. [address] [place] [address] (Wo rk) Social History Tobacco [...] Sign Reading Time Taken Comments Blood Pressure 98/58 06/29/2015 5:10 PM CDT Pulse 68 06/29/2015 5:10 PM CDT Temperature - - Respiratory Rate 16 06/29/2015 5:10 PM CDT Oxygen Saturation - - Inhaled Oxygen Concentration - - Weight 69.5 kg (153 lb 3.5 oz) 06/29/2015 5:10 PM CDT Height 158 cm (5' 2.21) 06/29/2015 5:10 PM CDT Body Mass Index 27.84 06/29/2015 5:10 PM CDT documented in this encounter Medications [...] Progress Notes Tin Schmidt, SOHAN, C.N.P. - 06/29/2015 5:30 PM CDT Clinic Full Note CHIEF COMPLAINT/REASON FOR VISIT Fever that has been going on for 2 weeks. fever comes at night and then not able to sleep. Energy level can be good one day and then next day exhausted. Liver pain. Back was fracture and is still having pain. Tylenol does not work. HISTORY OF PRESENT ILLNESS Althea is here with her daughter who is interpreting. She has Rheumatoid arthritis and is due for labs. She is on methotrexate, Arava, Plaquenil and prednisone. She uses acetaminophen as needed. She needs to schedule an appointment with her Hand Dry Cleaner at [facility] in [place]. She is supposed to be seen every 4-6 months. Last visit was in November. She has complaints of low back pain. She states her throat gets dry at night. She thinks she has fever at night. She has not checked her temperature. MEDICATIONS acetaminophen 325 mg oral tablet, 650 mg, 2 tab(s), PO, q4hr, PRN, 1 refills Arava 20 mg oral tablet, 20 mg, 1 tab(s), PO, Daily Calcium 600+D, 1 tab, PO, 2xDay folic acid 1 mg oral tablet, 1 mg, 1 tab(s), PO, Daily ibuprofen 200 mg oral tablet, 200 mg, 1 tab(s), with food, PO, q4hr, PRN, * meclizine 25 mg oral tablet, 25 mg, [...] 17.2 mg, 2 tab(s), PO, 2xDay, PRN * indicates non-compliance ALLERGIES NKA PAST MEDICAL [...] Pap smear (05/29/2006). SOCIAL HISTORY Date Time: 06/29/2015 17:10 Tobacco: Smoking Status: Never smoker Exposure: Other: never Alcohol: Use: No Results Found Recreational Drugs: Use: None Type: No Results Found FAMILY HISTORY Sister: Negative: Brother: Negative: Brother:Positive: GERD - Gastro-esophageal reflux disease HEALTH MAINTENANCE Due for pap smear, declined today. SYSTEMS REVIEW Positive for that mentioned in the History of Present Illness and Past Medical History. All other systems were reviewed and were negative. VITAL SIGNS T: 36.5 ??C (Core) HR: 68 RR: 16 BP: 98 / 58 HT: 158 cm WT: 69.5 kg BMI: 27.84 PHYSICAL EXAMINATION GENERAL: Well-developed, well-nourished, in no acute distress. SKIN: Warm and dry. HEENT: TMs clear. Throat clear. NECK: Supple. No lymphadenopathy or thyromegaly. HEART: Regular rate and rhythm. S1, S2. No murmur. LUNGS: Clear to auscultation. No wheezes or rales. ABDOMEN: Soft, nontender. No hepatosplenomegaly. EXTREMITIES: Warm, dry. No peripheral edema. LAB RESULTS CBC, BMP and AST are pending. IMPRESSION/REPORT/PLAN Arthritis Rheumatoid Labs for high risk medications will be drawn today and faxed to her Hand Dry Cleaner at [facility] in [place]. Continue acetaminophen as needed for low back discomfort. Ordered: AST Basic Metabolic Panel CBC (includes Auto Differential) OV Est Pt Level 4 - 39158 - 25 min High Risk Medication Ordered: AST Basic Metabolic Panel CBC (includes Auto Differential) OV Est Pt Level 4 - 29483 - 25 min Infection Upper Respiratory Viral (URI) Symptomatic treatment. Encourage fluids, Tylenol for fever. Recheck if symptoms do not improve. Ordered: OV Est Pt Level 4 - 44086 - 25 min Electronically Signed By: TIN SCHMIDT APRN, CNP On: 06/29/2015 05:38 PM Source: [facility] POWERCHART Document Id: [id number] documented in this encounter Nursing Notes Tin Schmidt APRN, C.N.P. - 06/29/2015 5:24 PM CDT Ambulatory Patient Education The following [...] For more information contact: ?? Arthritis Foundation [phone], www.[email or web address] ?? National [employer] of Arthritis and Musculoskeletal and Skin Diseases (NIAMS) [phone], www.niams.nih.gov Return Promptly or contact your doctor if any of the following occur: ?? Increasing weakness, pale color of the skin, fainting ?? Chest pain or shortness of breath ?? Blood in your vomit or stool (black or red color) ?? Visual changes, skin ulcers ?? [phone] [facility], [address] [place] [address]. All rights reserved. This information is not intended as a substitute for professional medical care. Always follow your healthcare professional's instructions. Source: [facility] POWERCHART Document Id: [id number] documented in this encounter Miscellaneous Notes Miscellaneous - Tin Schmidt APRN, C.N.P. - 06/29/2015 5:24 PM CDT Ambulatory Patient Summary [address] [id number] Visit Information Name: ALTHEA ARIAS [facility] Number: [id number] Current Date: 06/29/2015 17:24:16 Physicians Attending Provider: TIN SCHMIDT APRN SUPERVISOR MACHINE SETTER Primary Care Provider: TIN SCHMIDT APRN SUPERVISOR MACHINE SETTER ALTHEA ARIAS has been given the following [...] the Following Medications: Medication list as of 06-29-15 17:24 Attention: If you have any medications at [...] emergency. Electronically Signed By: TIN SCHMIDT APRN [facility] Signed On:29-JUN-2015 17:24:05 Your Allergies & Intolerances Substance Reaction Symptoms [...] For more information contact: ?? Arthritis Foundation [phone], www.arthritis.org ?? National Wood[employer] of Arthritis and Musculoskeletal and Skin Diseases (NIAMS) [phone], www.niams.nih.gov Return Promptly or contact your doctor if any of the following occur: ?? Increasing weakness, pale color of the skin, fainting ?? Chest pain or shortness of breath ?? Blood in your vomit or stool (black or red color) ?? Visual changes, skin ulcers ?? [phone] [facility], [address] [place] [address], [place] [address]. All rights reserved. This information is not [...] if you dont have one. Go to [email or web address] and click on Create Your Account. Then, follow the directions to complete the online form. Youll be asked for your [facility] number which you can find at the top of this document. Your Goals/Additional instructions: Source: [facility] POWERCHART Document Id: [id number] Miscellaneous - Tin Schmidt APRN, C.N.P. - 06/29/2015 5:24 PM CDT Ambulatory Discharge Medication List [address] [id number] Visit Information Name: ALTHEA ARIAS [facility] Number: [id number] Visit Date: 06/29/2015 17:24:15 Attending Provider: TIN SCHMIDT APRN, CNP Primary Care Provider: TIN SCHMIDT APRN, CNP ALTHEA ARIAS has been given the [...] the Following Medications: Medication list as of 06-29-15 17:24 Attention: If you have any medications at [...] Signed By: TIN SCHMIDT APRN, CNP Signed On:29-JUN-2015 17:24:05 Additional Information: Source: [facility] POWERCHART Document Id: [id number] Miscellaneous - Torito Meza L.P.N. - 06/29/2015 5:10 PM CDT Adult 2Nd [facility] Intake/History Adult 2Nd [facility] Intake/History Entered On: 06/29/2015 17:14 CDT Performed On: 06/29/2015 17:10 CDT by TORITO MEZA LPN Intake Chief Complaint : Fever that has been going on for 2 weeks. fever comes at night and then not able to sleep. Energy level can be good one day and then next day exhausted. Liver pain. Back was fracture and is still having pain. Tylenol does not work. Temperature Core : 36.5 DegC(Converted to: 97.7 DegF) Peripheral Pulse Rate : 68 /min Respiratory Rate : 16 /min Heart Rhythm : Regular Systolic Blood Pressure : 98 mmHg Diastolic Blood Pressure : 58 mmHg NIBP Mean : 71 mmHg BP Location : Right upper extremity Blood Pressure Cuff Size : Regular Height : 158 cm(Converted to: 5 ft 2 inch(es), 62 inch(es)) Actual Weight : 69.5 kg(Converted to: 153 lb 4 oz) Weight Source : Standing scale Dosing Weight Clinic : 69.5 kg Clinic BSA : 1.75 Body Mass Index : 27.84 kg/m2 TORITO MEZA LPN - 06/29/2015 17:10 CDT General Info Information Given By : Daughter Preferred Communication Mode : Verbal Languages : Bol[place]ian Is Patient Female and 13-50 no hysterectomy : No TORITO MEZA LPN - 06/29/2015 17:10 CDT Subjective Pain Symptoms : Yes TORITO MEZA LPN - 06/29/2015 17:10 CDT Pain Scale Pain Scale Verbal 0-10 : Open TORITO MEZA LPN - 06/29/2015 17:10 CDT Pain Pain Assessment Grid Pain 1 Location : Lower back Laterality : Bilateral Intensity : 8 Time Pattern : Intermittent TORITO MEZA LPN - 06/29/2015 17:10 CDT Dependent Habits Exposure to Tobacco Smoke : Other: never Smoking Status : Never smoker Tobacco 2A : No Tobacco Use/Currently Using : No Tobacco Use/Last 30 Days : No Tobacco Use/Last 12 months : No TORITO MEZA RAGHAV - 06/29/2015 17:10 CDT Caffeine Use Grid Caffeine Use : Current Type : Coffee, Tea Frequency : Daily TORITO MEZA RAGHAV - 06/29/2015 17:10 CDT Recreational Drug Use Grid Drug Use : None TORITO MEZA RAGHAV - 06/29/2015 17:10 CDT Source: [facility] POWERCHART Document Id: [id number]!49 documented in this encounter Plan of Treatment Upcoming Encounters Date Type Specialty Care Team Description 02/01/2022 Comprehensive Visit Family Medicine Tin Schmidt A PRN, C.N.P. [address], [place] [phone] (Wo rk) documented as of this encounter Procedures Procedure Name Priority Date/Time Associated Comments Diagnosis AUTOMATED DIFFERENTIAL, Routine 06/29/2015 5:40 R esults for this B PM CDT procedure are i n the results section. CBC WITH DIFFERENTIAL, B Routine 06/29/2015 5:40 Results for this PM CDT procedure are i n the results section. ASPARTATE Routine 06/29/2015 5:40 Results for this AMINOTRANSFERASE (AST), PM CDT proc edure are in S/P the results section. BASIC METABOLIC PANEL, Routine 06/29/2015 5:40 Re sults for this S/P PM CDT procedure are i n the results section. documented in this encounter Results Automated Differential (06/29/2015 5:40 PM CDT) P athologist Signature Absolute 2.79 1.70 - POWERCHART Neutrophils 7.00 109L Lymphocytes 1.25 0.90 - POWERCHART 2.90 X109L Monocytes 0.50 0.30 - POWERCHART 0.90 X109L Eosinophils 0.16 0.05 - POWERCHART 0.50 X109L Absolute 0.01 0.00 - POWERCHART Basophil 0.30 X109L Specimen Anatomical Collection Method Collection Time Receive d Time (Source) Location / / Volume Laterality Blood 06/29/2015 5:40 PM 06/28/201 6 5:40 CDT PM CDT Tin Schmidt APRN C.N.P. LAB BLOOD ADD-ON Performing Organization Address City/State/ZIP Code Phon e Number POWERCHART CBC with Differential (06/29/2015 5:40 PM CDT) P athologist Signature Leukocytes 4.7 3.4 - 10.5 POWERCHART X109L Erythrocytes 4.14 3.90 - 5.03 POWERCHART [id number] Hemoglobin 12.3 12.0 - 15.5 POWERCHART GDL Hematocrit 37.7 34.9 - 44.5 POWERCHART MCV 91.1 82.0 - 98.0 POWERCHART [place] Platelet Count 211 150 - 450 POWERCHART X109L HX RDW 14.1 11.9 - 15.5 POWERCHART Specimen (Source) Anatomical Collection Method Collection Time Re ceived Time Location / / Volume Laterality Blood 06/29/2015 5:40 PM CDT Tin Schmidt APRN, C.N.P. LAB BLOOD ADD-ON Performing Organization Address City/[facility] Code Phon e Number POWERCHART BMP (Basic Metabolic Panel) (06/29/2015 5:40 PM CDT) P athologist Signature Sodium, S 140 135 - 145 POWERCHART MMOLL Potassium, S 4.0 3.6 - 5.2 POWERCHART MMOLL Chloride, S 102 98 - 107 POWERCHART MMOLL CO2 Total 27 22 - 29 POWERCHART MMOLL BUN (Blood Urea 12 6 - 21 POWERCHART Nitrogen), S MGDL Creatinine 0.7 0.6 - 1.1 POWERCHART MGDL Calcium, Total, 9.0 8.0 - 10.3 POWERCHART S MGDL Anion Gap 12 7 - 15 POWERCHART MMOLL HXeGFR (MDRD) >60 >=60 POWERCHART [id number] eGFR >60 >=60 POWERCHART Black/ [id number] [place] Glucose 91 70 - 139 POWERCHART MGDL Specimen (Source) Anatomical Collection Method Collection Time Re ceived Time Location / / Volume Laterality Blood 06/29/2015 5:40 PM CDT Tin Schmidt APRN C.N.P. LAB BLOOD ADD-ON Performing Organization Address City/State/[facility] Code Phon e Number POWERCHART AST (Aspartate Aminotransferase) (06/29/2015 5:40 PM CDT) [facility] gist Method Time Signature Aspartate 22 8 - 43 POWERCHART Aminotransferase UNITL (AST), S Specimen (Source) Anatomical Collection Method Collection Time Re ceived Time Location / / Volume Laterality Blood 06/29/2015 5:40 PM CDT Tin Schmidt APRN, C.N.P. LAB BLOOD ADD-ON Performing Organization Address City/State/ZIP Code Phon e Number POWERCHART documented in this encounter Visit Diagnoses Not on filedocumented in this encounter
--- OUTSIDE RECORDS SUMMARY | 2022-01-21 23:28 | XMS_ITS | Encounter Summary ---
:1955 Author Organization [facility] Address [address] [place] [address] Care Team Providers Name Role Phone Cynthia Rockwell APRN C.N.PShelton Primary Care Provider [phone] Encounter Details Date Type Department Care Team Description 12/14/2013 Historical Ophthalmology [facility] Juan Ramon Lambert Jr., M.D. [address] [place], [place] [phone] (Wo rk) Social History [...] encounter Progress Juan Ramon Mcfadden M.D. - 12/14/2013 1:03 PM CDT Eye General CHIEF COMPLAINT Complete Exam HISTORY OF PRESENT ILLNESS Pt has not been wearing her glasses as they do not work well anymore for near [place]. Feels distance VA is stable. ROS good general health- heart and lungs WNL IMPRESSION / REPORT / PLAN A) Cataracts ou, soon as growing towards visual axis. P) Glasses, RTO 1 year, billed complete and refraction. CDM Reports - EYEGEN Id: [id number] Status: Fnl documented in this encounter Plan of Treatment Upcoming Encounters Date Type Specialty Care Team Description 02/01/2022 Comprehensive Visit Family Medicine Cynthia Rockwell A PRN, C.N.P. [address], [place] [phone] (Wo rk) documented as of this encounter Visit Diagnoses Not on filedocumented in this encounter Additional Health Concerns Infection Onset Date Last Indicated Resolved Time COVID19 Pending 07/15/2019 07/15/2019 07/15/2019 11:56 PM CDT [id number]: >30 days since initial test 07/15/201907/0208/24/2019 9:55 AM CDT Danay Castillo M.D. documented as of this encounter Care Teams Flight Software Test Engineer Relationship Specialty Start Date End Date Cynthia Rockwell APRN, C.N.P. PCP - General 08/16/16 [address], [place] [address] documented as of this encounter
--- OUTSIDE RECORDS SUMMARY | 2022-01-21 23:28 | XMS_ITS | Encounter Summary ---
:1955 Author Organization [facility] Address [address] [place] [address] Care Team Providers Name Role Phone Unavailable Primary Care Provider Unavailable Encounter Details Date Type Department Care Team Description 12/15/2012 Hospital Encounter HX [facility] Juan Ramon Murphy Jr., M.D. [address] [place], [place] [phone] (Wo rk) Social History [...] or relatives? How often do you attend hoahaoism or 1 to 4 times per year 09/01 yazidi services? Do you belong to any clubs or No 09/18/2018 organizations such as hoahaoism groups, unions, fraternal or athletic groups, or [...] as of this encounter Progress Notes Denis Avina - 12/15/2012 3:09 PM CDT Eye Services Clinic Exam Eye Services Clinic Exam Entered On: 12/15/2012 15:26 CDT Performed On: 12/15/2012 15:09 CDT by DENIS AVINA Chief Complaint and History Pain Symptoms : No Last Eye Exam : 2008 Smoking Status : Never smoker Comment : Pt states her vision is getting worse over time. Right eye worse than the left. Glasses are broke. ROS good general ehalth- heart and lungs WNL Family History Reviewed : 12/15/2012 CDT DENIS AVINA - 12/15/2012 15:09 CDT Optometry Exam Familty History Grid Cataract : Self DENIS AVINA - 12/15/2012 15:09 CDT Vision Testing Right Eye Vision Testing : Without correction, 20/80, -1 Left Eye Vision Testing : Without correction, 20/70 Near Vision Right Eye : J-7 Near Vision Left Eye : J-10 DENIS AVINA - 12/15/2012 15:09 CDT Refraction Glasses and/or Prescription : Didn't bring DENIS AVINA - 12/15/2012 15:09 CDT Right Eye Manifest Grid Date : 10/06/2010 CDT 12/15/2012 CDT Performed by : [facility] Sphere : 0 -1.00 CYL : +1.00 [place] : 180 Visual Acuity Distance : 20/30 ADD : +2.50 +2.50 DENIS AVINA - 12/15/2012 15:09 CDT DENIS AVINA - 12/15/2012 15:09 CDT Left Eye Manifest Grid Date : 10/06/2010 CDT 12/15/2012 CDT Performed by : [facility] : -0.75 Visual Acuity Distance : 20/25 ADD : +2.50 +2.50 DENIS AVINA - 12/15/2012 15:09 CDT DENIS AVINA - 12/15/2012 15:09 CDT Ocular Testing EOMS : Normal Comment : 4-2 4-2 - mg Confrontation Wolf : RE Normal, LE Normal DENIS AVINA - 12/15/2012 15:09 CDT Intraoccular Pressures Intraoccular Pressures Grid Date : 10/06/2010 CDT 10/06/2010 CDT 12/15/2012 CDT 12/15/2012 CDT Eye : RE LE RE LE Applanation : 15 15 Geovani Pen : 14 16 DENIS AVINA - 12/15/2012 15:09 CDT DENIS AVINA - 12/15/2012 15:09 CDT DENIS AVINA - 12/15/2012 15:09 CDT DENIS AVINA - 12/15/2012 15:09 CDT Eye Drops Exam Other Medication Eye Drops : n/m Other Medication Eye Drops Eye : Both eyes Other Medication Eye Drops Amnt : One drop Other Medication Eye Drops Time : 15:26 YOUTUBER DENIS AVINA - 12/15/2012 15:09 CDT Ocular Health Ocular Health Ext Rt Eye Grid Ext Rt Eye - Lids/Lashes : Normal Ext Rt Eye - Conjunctiva : Normal Ext Rt Eye - Cornea : Normal Ext Rt Eye - A/C : Normal Ext Rt Eye - Iris : Normal Ext Rt Eye - Lens : Normal (Comment: anterior cortical cataract [JUAN RAMON IVY MD - 12/15/2012 15:33 CDT] ) JUAN RAMON IVY MD - 12/15/2012 15:33 CDT Ocular Health Ext Lt Eye Grid Ext Lt Eye - Lids/Lashes : Normal Ext Lt Eye - Conjunctiva : Normal Ext Lt Eye - Cornea : Normal Ext Lt Eye - A/C : Normal Ext Lt Eye - Iris : Normal Ext Lt Eye - Lens : Normal (Comment: anterior cortical cataract, [JUAN RAMON IVY MD - 12/15/2012 15:33 CDT] ) JUAN RAMON IVY MD - 12/15/2012 15:33 CDT Ocular Health Int Rt Eye Grid Int Rt Eye - Vitreous : Normal Int Rt Eye - C/D : Normal (Comment: 0.25 [JUAN RAMON IVY MD - 12/15/2012 15:33 CDT] ) Int Rt Eye - Margins : Normal Int Rt Eye - Color : Normal Int Rt Eye - Macula : Normal Int Rt Eye - Posterior Pole : Normal Int Rt Eye - Periphery : Normal Int Rt Eye - Vessels : Normal JUAN RAMON IVY MD - 12/15/2012 15:33 CDT Ocular Health Int Lt Eye Grid Int Lt Eye - Vitreous : Normal Int Lt Eye - C/D : Normal (Comment: 0.25 [JUAN RAMON IVY MD - 12/15/2012 15:33 CDT] ) Int Lt Eye - Margins : Normal Int Lt Eye - Color : Normal Int Lt Eye - Macula : Normal Int Lt Eye - Posterior Pole : Normal Int Lt Eye - Periphery : Normal Int Lt Eye - Vessels : Normal JUAN RAMON IVY MD - 12/15/2012 15:33 CDT Assessment Findings : Other: Cataracts ou, but OK with glasses for now. Plan : Gave patient copy of spectacle Rx, Return for complete exam in one year or PRN JUAN RAMON IVY MD - 12/15/2012 15:33 CDT Source: [facility] [employer] Document Id: [id number]!36 documented in this encounter Miscellaneous Notes Miscellaneous - Juan Ramon Ivy M.D. - 12/15/2012 4:14 PM CDT Ambulatory Patient Summary [address] [address] Visit Information Name: ALTHEA ARIAS [facility] Number: [id number] Current Date: 12/15/2012 16:14:08 Physicians Attending Provider: JUAN RAMON IVY MD Primary Care Provider: TIN SCHMIDT PORTRAIT CONSULTANT Your Medications Here is a list of your medications. It is important to take your medications as directed. Use a pillbox or chart to help remind you to take your medications. Please let your doctor or nurse know if you have problems taking your medications. Medication/Strength Dose Route Frequency Indications/Special Instructions/Comments/Notes meclizine (meclizine 25 mg oral tablet) 25 mg Oral three times a day as needed for Dizziness leflunomide (Arava 20 mg oral tablet) 20 mg Oral once a day acetaminophen (acetaminophen 500 mg oral tablet) 1,000 mg Oral every 4 hours as needed for Pain senna (Senokot Extra 8.6 mg oral tablet) 17.2 mg Oral two times a day as needed for Constipation hydroxychloroquine (Plaquenil Sulfate 200 mg oral tablet) 400 mg Oral once a day (at bedtime) ibuprofen (ibuprofen 200 mg oral tablet) 200 mg Oral every 4 hours as needed for pain with food folic acid (folic acid 1 mg oral tablet) 1 mg Oral once a day predniSONE (predniSONE 5 mg oral tablet) 10 mg Oral once a day ranitidine (ranitidine 150 mg oral tablet) 150 mg Oral two times a day calcium-vitamin D (Calcium 600+D) 1 tab Oral two times a day methotrexate (methotrexate 2.5 mg oral tablet) 12.5 mg Oral every week on Saturday night Attention: If you have any medications at home that are not on this list, DO NOT take them until youcontact your provider for clarification. 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 - 12/15/2012 4:14 PM CDT Ambulatory Depart Summary [address] [address] Visit Information Name: ALTHEA ARIAS [facility] Number: [id number] Visit Date: 12/15/2012 16:14:07 Attending Provider: JUAN RAMON IVY MD Primary Care Provider: TIN SCHMIDT PORTRAIT CONSULTANT ONIEL ALTHEA Kuldip has been given the following list of medications: Your Medications It is important to take your medications as directed. Use a pill box or chart to help remind you to take your medications. Please let your doctor or nurse know if you have problems taking your medications. Medication/Strength Dose Route Frequency Indications/Special Instructions/Comments/Notes meclizine (meclizine 25 mg oral tablet) 25 mg Oral three times a day as needed for Dizziness leflunomide (Arava 20 mg oral tablet) 20 mg Oral once a day acetaminophen (acetaminophen 500 mg oral tablet) 1,000 mg Oral every 4 hours as needed for Pain senna (Senokot Extra 8.6 mg oral tablet) 17.2 mg Oral two times a day as needed for Constipation hydroxychloroquine (Plaquenil Sulfate 200 mg oral tablet) 400 mg Oral once a day (at bedtime) ibuprofen (ibuprofen 200 mg oral tablet) 200 mg Oral every 4 hours as needed for pain with food folic acid (folic acid 1 mg oral tablet) 1 mg Oral once a day predniSONE (predniSONE 5 mg oral tablet) 10 mg Oral once a day ranitidine (ranitidine 150 mg oral tablet) 150 mg Oral two times a day calcium-vitamin D (Calcium 600+D) 1 tab Oral two times a day methotrexate (methotrexate 2.5 mg oral tablet) 12.5 mg Oral every week on Saturday night Attention: If you have any medications at home that are not on this list, DO NOT take them until youcontact your provider for clarification. Additional Information: Source: [facility] POWERCHART Document Id: [id number] documented in this encounter Plan of Treatment Upcoming Encounters Date Type Specialty Care Team Description 02/01/2022 Comprehensive Visit Family Medicine Tin Schmidt, Kuldip PRN, C.N.P. [address] [place], [place] [phone] (Wo rk) documented as of this encounter Visit Diagnoses Not on filedocumented in this encounter
--- OUTSIDE RECORDS SUMMARY | 2022-01-21 23:28 | XMS_ITS | Encounter Summary ---
:1955 Author Organization [facility] Address [address] [place] [address] Care Team Providers Name Role Phone Unavailable Primary Care Provider Unavailable Encounter Details Date Type Department Care Team Description 06/17/[address] [facility] Tin Schmitd A PRN, C.N.P. [address] [place], [place] [phone] (Wo rk) Social History [...] mg tablet documented as of this encounter Miscellaneous Notes Miscellaneous - Tin Schmidt, RATE MARKER, C.N.P. - 08/06/2013 12:05 PM CDT General Message Document Contains Addenda Addendum by TORITO MEZA LPN on 06 August 2013 16:08:14 CDT Contacted [facility] Perry Arana office and they stated that her eye exam is ok. Faxed exam to [phone] attention to Perry Arana CNP. From: TIN SCHMIDT BOAT ENGINE MECHANIC To: TORITO MEZA LPN; Sent: 08/06/2013 12:05:46 CDT Subject: General Message Perry Arana CNP in Rheumatology at [facility] is looking for an eye exam report. Can you see if the December visit with Dr. Ivy is Ok or if the patient needs to be scheduled for another one? Source: [facility] POWERCHART Document Id: [id number] documented in this encounter Plan of Treatment Upcoming Encounters Date Type Specialty Care Team Description 02/01/2022 Comprehensive Visit Family Medicine Tin Schmidt A PRN, C.N.P. [address] [phone] (Wo rk) documented as of this encounter Procedures Procedure Name Priority Date/Time Associated Comments Diagnosis AUTOMATED DIFFERENTIAL, Routine 06/17/2013 11:43 Results for this B AM CDT procedure are i n the results section. CBC WITH DIFFERENTIAL, B Routine 06/17/2013 11:43 Results for this AM CDT procedure are i n the results section. ASPARTATE Routine 06/17/2013 11:43 Results for this AMINOTRANSFERASE (AST), AM CDT proc edure are in S/P the results section. CREATININE WITH EGFR, Routine 06/17/2013 11:43 Re sults for this S/P AM CDT procedure are i n the results section. documented in this encounter Results Automated Differential (06/17/2013 11:43 AM CDT) P athologist Signature Neutro % 53.4 34.0 - POWERCHART 71.1 Lymphocytes % 33.2 19.3 - POWERCHART 51.7 HX [place] % 9.7 4.7 - 12.5 POWERCHART HX Eos % 3.5 0.7 - 5.8 POWERCHART HX Baso % 0.2 0.1 - 1.2 POWERCHART Absolute 2.14 1.70 - POWERCHART Neutrophils 7.00 109L Lymphocytes 1.33 0.90 - POWERCHART 2.90 X109L Monocytes 0.39 0.30 - POWERCHART 0.90 X109L Eosinophils 0.14 0.05 - POWERCHART 0.50 X109L Absolute 0.01 0.00 - POWERCHART Basophil 0.30 X109L Specimen Anatomical Collection Method Collection Time Receive d Time (Source) Location / / Volume Laterality Blood 06/17/2013 11:43 06/17/2013 AM CDT 11:43 AM CDT Tin Schmidt APRN C.N.P. LAB BLOOD ADD-ON Performing Organization Address City/State/ZIP Code Phon e Number POWERCHART CBC with Differential (06/17/2013 11:43 AM CDT) athologist Signature Leukocytes 4.0 3.4 - 10.5 POWERCHART X109L Erythrocytes 4.32 3.90 - POWERCHART 5.03 [id number] Hemoglobin 12.6 12.0 - POWERCHART 15.5 GDL Hematocrit 39.0 34.9 - POWERCHART 44.5 MCV 90.3 82.0 - POWERCHART 98.0 [place] Platelet Count 180 150 - 450 POWERCHART X109L HX RDW 14.7 11.9 - POWERCHART 15.5 HXDifferential? Auto POWERCHART Specimen (Source) Anatomical Collection Method Collection Time Re ceived Time Location / / Volume Laterality Blood 06/17/2013 11:43 AM CDT Arlette Yancey APRN.N.P. LAB BLOOD ADD-ON Performing Organization Address City/State/ZIP Code Phon e Number POWERCHART (ABNORMAL) Creatinine with eGFR (06/17/2013 11:43 AM CDT) P athologist Signature Creatinine 0.6 (L) 0.7 - 1.2 POWERCHART MGDL HXeGFR (MDRD) >60 MLMIN POWERCHART eGFR >60 MLMIN POWERCHART Black/ Specimen (Source) Anatomical Collection Method Collection Time Re ceived Time Location / / Volume Laterality Blood 06/17/2013 11:43 AM CDT Maisha Yancey APRNN.P. LAB BLOOD ADD-ON Performing Organization Address City/State/ZIP Code Phon e Number POWERCHART AST (Aspartate Aminotransferase) (06/17/2013 11:43 AM CDT) Patholo gist Method Time Signature Aspartate 22 8 - 43 POWERCHART Aminotransferase UNITL (AST), S Specimen (Source) Anatomical Collection Method Collection Time Re ceived Time Location / / Volume Laterality Blood 06/17/2013 11:43 AM CDT Arlette Yancey APRN.N.P. LAB BLOOD ADD-ON Performing Organization Address City/State/ZIP Code Phon e Number POWERCHART documented in this encounter Visit Diagnoses Not on filedocumented in this encounter
--- OUTSIDE RECORDS SUMMARY | 2022-01-21 23:28 | XMS_ITS | Encounter Summary ---
:1955 Author Organization [facility] Address [address] [place] [address] Care Team Providers Name Role Phone Unavailable Primary Care Provider Unavailable Encounter Details Date Type Department Care Team Description 06/17/2013 Hospital Encounter HX [facility] Kari Rockwell, COMPUTER SYSTEMS TECHNOLOGY INSTRUCTOR, C.N.P. [address] [place] [address] (Wo rk) Social History Tobacco [...] or relatives? How often do you attend anglican or 1 to 4 times per year 09/01 episcopal services? Do you belong to any clubs or No 09/18/2018 organizations such as anglican groups, unions, fraternal or athletic groups, or [...] Sign Reading Time Taken Comments Blood Pressure 118/60 06/17/2013 10:14 AM CDT Pulse 68 06/17/2013 10:14 AM CDT Temperature - - Respiratory Rate 16 06/17/2013 10:14 AM CDT Oxygen Saturation - - Inhaled Oxygen Concentration - - Weight 73.4 kg (161 lb 13.1 oz) 06/17/2013 10:14 AM CDT Height 157.5 cm (5' 2.01) 06/17/2013 10:14 AM CDT Body Mass Index 29.59 06/17/2013 10:14 AM CDT documented in this encounter Medications [...] as of this encounter Progress Notes Tin Rockwell, SOHAN, C.N.P. - 06/17/2013 10:00 AM CDT [id number] CHIEF COMPLAINT/REASON FOR VISIT Rheumatoid arthritis. HISTORY OF PRESENT ILLNESS Ellie is here with her son, Sean, who is interpreting. She has history of rheumatoid arthritis. She is complaining of aching and not feeling well. We reviewed her medications. She has been taking them sporadically and has not been taking her Arava 20 mg daily at all. We had this discussion several times in the past, but again with the assistance of her son, I have stressed the importance of takingher medication every day in order for her to feel better. I explained she has rheumatoid arthritis which is an illness that will not go away, and she will need to continue on medication as well as see Rheumatology at [place]. Looking at [facility], she has no-showed her last 3 appointments. Her son was very surprised to hear this. He did not even know she had appointments, so I am going to get her rescheduled with Rheumatology today and have them call her son to schedule so he can make sure she makes itto her appointment. She will have labs drawn today, per Rheumatology orders, which are for CBC, AST and creatinine every 3 months. MEDICATIONS See depart summary from today. ALLERGIES None. SYSTEMS REVIEW Positive for that mentioned in the history of present illness and noted in the past medical history in the EMR. All other systems were reviewed and were negative. VITAL SIGNS See EMR. PHYSICAL EXAMINATION GENERAL: Well-developed, well-nourished female, in no acute distress. SKIN: Warm and dry. HEENT: TMs clear. Throat clear. NECK: Supple. No lymphadenopathy or thyromegaly. HEART: Regular rate and rhythm. LUNGS: Clear to auscultation. ABDOMEN: Soft, nontender. No hepatosplenomegaly. EXTREMITIES: Warm, dry. No peripheral edema. Tenderness over the thoracic and lumbar spine. Deep tendon reflexes 2+ and symmetrical. IMPRESSION/REPORT/PLAN Rheumatoid arthritis. Noncompliant with medications and Rheumatology followup. Long discussion todaywith her son and her regarding importance of maintaining a relationship with Rheumatology and takingmedications as prescribed. Labs including CBC, AST and creatinine were drawn today. She is going to be rescheduled with Rheumatology, and hopefully her son will make sure she makes it to the next appointment. Sean's cell phone number is [phone]. Total time spent with the patient and her son 30 minutes, 25 minutes of it counseling and coordinating care. Tin Rockwell CNP/viet Electronically Signed By: TIN ROCKWELL CNP On: 06/17/2013 02:12 PM Source: [facility] MHSDOLBEYNONRADSYS Document Id: [id number] documented in this encounter Nursing Notes Torito Meza L.P.N. - 06/17/2013 2:21 PM CDT On line referral On line referral completed for [facility] Rheumatology. Electronically Signed By: TORITO MEZA LPN On: 06/17/2013 02:25 PM Source: [facility] POWERCHART Document Id: [id number] documented in this encounter Miscellaneous Notes Miscellaneous - Tin Rockwell APRN, C.N.P. - 06/17/2013 10:57 AM CDT Ambulatory Patient Summary [place] [id number] [place] [id number] Visit Information Name: ELLIE ARIAS [facility] Number: [id number] Current Date: 06/17/2013 10:57:45 Physicians Attending Provider: TIN ROCKWELL CNP Primary Care Provider: TIN ROCKWELL CNP ELLIE ARIAS has been given the following list of follow-up instructions, medication list, and patient education materials: Follow-up Instructions Your Medications Here is a list of your medications. It is important to take your medications as directed. Use a pillbox or chart to help remind you to take your medications. Please let your doctor or nurse know if you have problems taking your medications. Medication/Strength How to Take Indications/Special Instructions/Comments/Notes for Patient Medication Changes/Routing acetaminophen (acetaminophen 500 mg oral tablet) 2 Tablet(s), Oral, every 4 hours as needed for Pain calcium-vitamin D (Calcium 600+D) 1 tab, Oral, two times a day folic acid (folic acid 1 mg oral tablet) 1 Tablet(s), Oral, once a day hydroxychloroquine (Plaquenil Sulfate 200 mg oral tablet) 2 Tablet(s), Oral, once a day (at bedtime) ibuprofen (ibuprofen 200 mg oral tablet) 1 Tablet(s), Oral, every 4 hours as needed for pain with food *leflunomide (Arava 20 mg oral tablet) 1 Tablet(s), Oral, once a day meclizine (meclizine 25 mg oral tablet) 1 Tablet(s), Oral, three times a day as needed for Dizziness methotrexate (methotrexate 2.5 mg oral tablet) 5 Tablet(s), Oral, every week on Saturday night predniSONE (predniSONE 5 mg oral tablet) 2 Tablet(s), Oral, once a day *ranitidine (ranitidine 150 mg oral tablet) 1 Tablet(s), [...] the Following Medications: Medication list as of 06-17-13 10:57 Attention: If you have any medications at home that are not on this list, DO NOT take them until youcontact your provider for clarification. Give a copy of your medication list to your primary care provider. Update your medication list any time medications or doses are changed and carry your medication list at all times in case of emergency. 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 [id number] Living with Rheumatoid Arthritis Rheumatoid arthritis is an ongoing problem, but it doesnt have to keep you from being active. You can help control it with exercise and a healthy lifestyle. Be sure to see your doctor as requested for checkups and lab work. At some point, your doctor may send you to a tool lapper hand (a doctor who specializes in arthritis and [...] Splints for your wrists or other joints Large validation engineer for pencils, garden tools, and other hand-held objects ?? [id number] [facility], [address] [place] [address], [place] [address]. All rights reserved. This information is not intended as a substitute for professional medical care. Always follow your healthcare professional's instructions. Your Goals/Additional instructions: This document has images extracted. Please consider using [employer] for all your patient education needs. Source: [facility] POWERCHART Document Id: [id number] Miscellaneous - Tin Rockwell APRN, C.N.P. - 06/17/2013 10:57 AM CDT Ambulatory Discharge Medication List [address] [id number] Visit Information Name: ELLIE ARIAS [facility] Number: [id number] Visit Date: 06/17/2013 10:57:43 Attending Provider: TIN ROCKWELL CNP Primary Care Provider: TIN ROCKWELL CNP ELLIE ARIAS has been given the following list of medications: Your Medications It is important to take your medications as directed. Use a pill box or chart to help remind you to take your medications. Please let your doctor or nurse know if you have problems taking your medications. Medication/Strength How to Take Indications/Special Instructions/Comments/Notes for Patient Medication Changes/Routing acetaminophen (acetaminophen 500 mg oral tablet) 2 Tablet(s), Oral, every 4 hours as needed for Pain calcium-vitamin D (Calcium 600+D) 1 tab, Oral, two times a day folic acid (folic acid 1 mg oral tablet) 1 Tablet(s), Oral, once a day hydroxychloroquine (Plaquenil Sulfate 200 mg oral tablet) 2 Tablet(s), Oral, once a day (at bedtime) ibuprofen (ibuprofen 200 mg oral tablet) 1 Tablet(s), Oral, every 4 hours as needed for pain with food *leflunomide (Arava 20 mg oral tablet) 1 Tablet(s), Oral, once a day meclizine (meclizine 25 mg oral tablet) 1 Tablet(s), Oral, three times a day as needed for Dizziness methotrexate (methotrexate 2.5 mg oral tablet) 5 Tablet(s), Oral, every week on Saturday night predniSONE (predniSONE 5 mg oral tablet) 2 Tablet(s), Oral, once a day *ranitidine (ranitidine 150 mg oral tablet) 1 Tablet(s), [...] the Following Medications: Medication list as of 06-17-13 10:57 Attention: If you have any medications at home that are not on this list, DO NOT take them until youcontact your provider for clarification. Give a copy of your medication list to your primary care provider. Update your medication list any time medications or doses are changed and carry your medication list at all times in case of emergency. Electronically Signed By: TIN ROCKWELL NUCLEAR MEDICINE SUPERVISOR Signed On:17-JUN-2013 10:57:13 Additional Information: Source: [facility] POWERCHART Document Id: [id number] Miscellaneous - Torito Meza L.P.N. - 06/17/2013 10:14 AM CDT Adult Pattern Wheel Maker Intake/History Adult Pattern Wheel Maker Intake/History Entered On: 06/17/2013 10:16 CDT Performed On: 06/17/2013 10:14 CDT by TORITO MEZA LPN Intake Chief Complaint : Whole body aches. Started 3 days ago. Fever at night time. Temperature Core : 36.5 DegC(Converted to: 97.7 DegF) Peripheral Pulse Rate : 68 /min Respiratory Rate : 16 /min Heart Rhythm : Regular Systolic Blood Pressure : 118 mmHg Diastolic Blood Pressure : 60 mmHg NIBP Mean : 79 mmHg BP Location : Right upper extremity Blood Pressure Cuff Size : Regular Height : 157.5 cm(Converted to: 5 ft 2 inch(es), 62 inch(es)) Actual Weight : 73.4 kg(Converted to: 161 lb 13 oz) Weight Source : Standing scale Dosing Weight Clinic : 73.4 kg Clinic BSA : 1.79 Body Mass Index : 29.59 kg/m2 TORITO MEZA LPN - 06/17/2013 10:14 CDT General Info Information Given By : Patient Languages : Kuwaiti TORITO MEZA LPN - 06/17/2013 10:14 CDT Subjective Pain Symptoms : No TORITO MEZA LPN - 06/17/2013 10:14 CDT Dependent Habits Tobacco Use/Currently Using : No Smoking Status : Never smoker TORITO MEZA LPN - 06/17/2013 10:14 CDT Caffeine Use Grid Caffeine Use : Current Type : Coffee, Tea Frequency : Daily TORITO MEZA LPN - 06/17/2013 10:14 CDT Recreational Drug Use Grid Drug Use : None TORITO MEZA LPN - 06/17/2013 10:14 CDT Source: [facility] POWERCHART Document Id: [id number] CDT!34 documented in this encounter Plan of Treatment Upcoming Encounters Date Type Specialty Care Team Description 02/01/2022 Comprehensive Visit Family Medicine Tin Rockwell A PRN, C.N.P. [address] [phone] (Wo rk) documented as of this encounter Visit Diagnoses Not on filedocumented in this encounter
--- OUTSIDE RECORDS SUMMARY | 2022-01-21 23:28 | XMS_ITS | Encounter Summary ---
:1955 Author Organization [facility] Address [address] [place] [address] Care Team Providers Name Role Phone Unavailable Primary Care Provider Unavailable Encounter Details Date Type Department Care Team Description 12/14/2013 Hospital Encounter HX [facility] Juan Ramon Murphy Jr., M.D. [address] [place], [place] [phone] (Wo rk) Social History [...] or relatives? How often do you attend latter day or 1 to 4 times per year 09/01 tenriism services? Do you belong to any clubs or No 09/18/2018 organizations such as latter day groups, unions, fraternal or athletic groups, or [...] - - Height 158 cm (5' 2.21) 12/14/2013 12:59 PM CDT Body Mass Index - - [...] Progress Notes Juan Ramon Lofton M.D. - 12/14/2013 12:58 PM CDT [id number] The documentation for this visit is available in [facility] IMPRESSION/REPORT/PLAN A) Cataracts ou, soon as growing towards visual axis. P) Glasses, RTO 1 year, billed complete and refraction. Juan Ramon Lofton M.D./hrf Electronically Signed By: JUAN RAMON LOFTON MD On: 12/17/2013 08:50 AM Source: [facility] MHSDOLBEYNONRADSYS Document Id: [id number] documented in this encounter Miscellaneous Notes Miscellaneous - Juan Ramon Lofton M.D. - 12/14/2013 2:08 PM CDT Ambulatory Patient Summary [address] [id number] Visit Information Name: ALTHEA ARIAS [facility] Number: [id number] Current Date: 12/14/2013 14:08:58 Physicians Attending Provider: JUAN RAMON LOFTON MD Primary Care Provider: TIN SCHMIDT RESTAURANT EXPEDITOR ALTHEA ARIAS has been given the following [...] the Following Medications: Medication list as of 12-14-13 14:08 Attention: If you have any medications at [...] Signed By: JUAN RAMON LOFTON MD Signed On:14-DEC-2013 14:08:47 Your Allergies & Intolerances Substance Reaction Symptoms [...] appointment detail needed. Your Goals/Additional instructions: Source: [facility] POWERCHART Document Id: [id number] Miscellaneous - Juan Ramon Lofton M.D. - 12/14/2013 2:08 PM CDT Ambulatory Discharge Medication List [address] [id number] Visit Information Name: ALTHEA ARIAS [facility] Number: [id number] Visit Date: 12/14/2013 14:08:56 Attending Provider: JUAN RAMON LOFTON MD Primary Care Provider: TIN SCHMIDT RESTAURANT EXPEDITOR ALTHEA ARIAS has been given the following [...] the Following Medications: Medication list as of 12-14-13 14:08 Attention: If you have any medications at [...] Signed By: JUAN RAMON LOFTON MD Signed On:14-DEC-2013 14:08:47 Additional Information: Source: [facility] POWERCHART Document Id: [id number] documented in this encounter Plan of Treatment Upcoming Encounters Date Type Specialty Care Team Description 02/01/2022 Comprehensive Visit Family Medicine Tin Schmidt A PRN, C.N.P. [address] [phone] (Wo rk) documented as of this encounter Visit Diagnoses Not on filedocumented in this encounter
--- OUTSIDE RECORDS SUMMARY | 2022-01-21 23:28 | XMS_ITS | Encounter Summary ---
:1955 Author Organization [facility] Address [address] [place] [address] Care Team Providers Name Role Phone Unavailable Primary Care Provider Unavailable Encounter Details Date Type Department Care Team Description 01/14/2013 Hospital Encounter HX [facility] Cynthia Rockwell A PRN, C.N.P. [address] [place], [place] [phone] (Wo rk) Social History [...] Cynthia Rockwell A PRN, C.N.P. [address] [place], [place] [phone] (Wo rk) documented as of this encounter Procedures Procedure Name Priority Date/Time Associated Comments Diagnosis AUTOMATED DIFFERENTIAL, Routine 01/14/2013 5:13 R esults for this B PM SACK CLEANER procedure are i n the results section. CBC WITH DIFFERENTIAL, B Routine 01/14/2013 5:13 Results for this PM SACK CLEANER procedure are i n the results section. ASPARTATE Routine 01/14/2013 5:13 Results for this AMINOTRANSFERASE (AST), PM SACK CLEANER proc edure are in S/P the results section. CREATININE WITH EGFR, Routine 01/14/2013 5:13 Res ults for this S/P PM SACK CLEANER procedure are i n the results section. documented in this encounter Results (ABNORMAL) Automated Differential (01/14/2013 5:13 PM SACK CLEANER) [facility] gist Method Time Signature Neutro % 56.3 34.0 - POWERCHART 71.1 Lymphocytes % 29.3 19.3 - POWERCHART 51.7 HX [place] % 10.5 4.7 - 12.5 POWERCHART HX Eos % 3.6 0.7 - 5.8 POWERCHART HX Baso % 0.3 0.1 - 1.2 POWERCHART Absolute 1.71 1.70 - POWERCHART Neutrophils 7.00 109L Lymphocytes 0.89 (L) 0.90 - POWERCHART 2.90 X109L Monocytes 0.32 0.30 - POWERCHART 0.90 X109L Eosinophils 0.11 0.05 - POWERCHART 0.50 X109L Absolute 0.01 0.00 - POWERCHART Basophil 0.30 X109L Specimen Anatomical Collection Method Collection Time Receive d Time (Source) Location / / Volume Laterality Blood 01/14/2013 5:13 PM 201 3 5:13 SACK CLEANER PM SACK CLEANER Cynthia Rockwell APRN, C.N.P. LAB BLOOD ADD-ON Performing Organization Address City/State/ZIP Code Phon e Number POWERCHART (ABNORMAL) CBC with Differential (01/14/2013 5:13 PM SACK CLEANER) Analysis Performed At Patho logist Time Signature Leukocytes 3.0 (L) 3.4 - 10.5 POWERCHART X109L Erythrocytes 4.65 3.90 - POWERCHART 5.03 [id number] Hemoglobin 13.3 12.0 - POWERCHART 15.5 GDL Hematocrit 40.7 34.9 - POWERCHART 44.5 MCV 87.5 82.0 - POWERCHART 98.0 [place] Platelet Count 192 150 - 450 POWERCHART X109L HX RDW 14.8 11.9 - POWERCHART 15.5 HXDifferential? Auto POWERCHART Specimen (Source) Anatomical Collection Method Collection Time Re ceived Time Location / / Volume Laterality Blood 01/14/2013 5:13 PM SACK CLEANER Cynthia Rockwell APRN, C.N.P. LAB BLOOD ADD-ON Performing Organization Address City/State/ZIP Code Phon e Number POWERCHART (ABNORMAL) Creatinine with eGFR (01/14/2013 5:13 PM SACK CLEANER) P athologist Signature Creatinine 0.5 (L) 0.7 - 1.2 POWERCHART MGDL HXeGFR (MDRD) >60 MLMIN POWERCHART eGFR >60 MLMIN POWERCHART Black/ Specimen (Source) Anatomical Collection Method Collection Time Re ceived Time Location / / Volume Laterality Blood 01/14/2013 5:13 PM SACK CLEANER Cynthia Rockwell APRN, C.N.P. LAB BLOOD ADD-ON Performing Organization Address City/State/ZIP Code Phon e Number POWERCHART AST (Aspartate Aminotransferase) (01/14/2013 5:13 PM SACK CLEANER) Patholo gist Method Time Signature Aspartate 26 8 - 43 POWERCHART Aminotransferase UNITL (AST), S Specimen (Source) Anatomical Collection Method Collection Time Re ceived Time Location / / Volume Laterality Blood 01/14/2013 5:13 PM SACK CLEANER Cynthia Rockwell APRN C.N.P. LAB BLOOD ADD-ON Performing Organization Address City/State/ZIP Code Phon e Number POWERCHART documented in this encounter Visit Diagnoses Not on filedocumented in this encounter
--- OUTSIDE RECORDS SUMMARY | 2022-01-21 23:28 | XMS_ITS | Encounter Summary ---
:1955 Author Organization [facility] Address [address] [place] [address] Care Team Providers Name Role Phone Unavailable Primary Care Provider Unavailable Encounter Details Date Type Department Care Team Description 08/11/2012 Hospital Encounter HX [facility]ILY[facility] Jose Sebastian P.A.-C. [address] [place] [phone] (Wo rk) Social History Tobacco Use Types [...] Reading Time Taken Comments Blood Pressure 98/58 08/11/2012 1:40 PM CDT Pulse 72 08/11/2012 1:40 PM CDT Temperature - - Respiratory Rate 16 08/11/2012 1:40 PM CDT Oxygen Saturation - - Inhaled Oxygen Concentration - - Weight 76 kg (167 lb 8.8 oz) 08/11/2012 1:40 PM CDT Height 155 cm (5' 1.02) 08/11/2012 1:40 PM CDT Body Mass Index 31.63 08/11/2012 1:40 PM CDT documented in this encounter Medications [...] documented as of this encounter Progress Notes Jessica Sebastina P.A.-C. - 08/11/2012 1:29 PM CDT [id number] CHIEF COMPLAINT/REASON FOR VISIT Fall and abrasion on the knee. HISTORY OF PRESENT ILLNESS Althea is a 57-year-old female with rheumatoid arthritis who has been following with rheumatology down in [place]. She was last seen in April and was scheduled to follow up again in July but missedher appointment on July 02 due to a snow day. She has continued on her medications but there seems to be some discrepancy between what she is taking and what her medication list says. It says that she isto be taking methotrexate 5 tablets by mouth weekly and her pill bottle says to take 3 tablets weekly. It sounds like she has been taking 3 tablets. Nonetheless, she needs to follow up with rheumatology to get this clarified.. Eight days ago, she was walking outside in front of her home and slipped evangelist rock and fell forward. She has an abrasion on her left knee. She hit her left cheek on the ground as well. She said she had some loose teeth and has a bruise on her chin. Her cheek and chin seem to be getting better but her knee is still giving her some pain so she comes in for this today. VITAL SIGNS Noted in the EMR GENERAL: She appears no acute distress. ENT: TMs no erythema. Throat no erythema. She has a few teeth on the top she describes as being loose. I did not get too aggressive with moving these today. There does not appear to be any significant erythema or cellulitis of the gums and she does have a bruise on her left mandible but there is no break in the skin it does not appear be particularly tender. NECK: No lymphadenopathy. HEART: Regular rate and rhythm no murmurs. LUNGS: Clear to auscultation. Examination of her knees shows some abrasion over the patella on the left knee. This area is mildly erythematous and a bit swollen. It is a bit warm to the touch as well compared to the right knee. IMPRESSION/REPORT/PLAN 1. Rheumatoid arthritis. We need to get her scheduled to follow up in [place] again. She is due for her blood draws as well and so we will have her draw these today. Set up her appointment in [place] with rheumatology and I stressed the importance of making this appointment. 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 2. Cellulitis and abrasion from fall. Chin and her cheek do seem to be healing nicely. She says these are nearly back to normal but her left knee does have some cellulitis around abrasions on her knees so I am going to have her put some heat on this over the next couple of couple. I will put her on some Keflex to take 3 times daily the next week. If her symptoms worsen or not improve, she will let us know. Otherwise will follow up as needed. Jessica Sebastian PA-C/renetta Electronically Signed By: JESSICA SEBASTIAN PA-C On: 08/13/2012 03:49 PM Source: [facility] [id number] Document Id: [id number] documented in this encounter Miscellaneous Notes Miscellaneous - Jessica Sebastian P.A.-C. - 08/11/2012 2:07 PM CDT Ambulatory Patient Summary [id number] [place] [address] Visit Information Name: ALTHEA ARIAS [facility] Number: [id number] Current Date: 08/11/2012 14:07:32 Physicians Attending Provider: JESSICA SEBASTIAN PA-C Primary Care Provider: TIN ROCKWELL CUSTODY ASSISTANT Your Medications Here is a list of your medications. It is important to take your medications as directed. Use a pillbox or chart to help remind you to take your medications. Please let your doctor or nurse know if you have problems taking your medications. Medication/Strength Dose Route Frequency Indications/Special Instructions/Comments cephalexin (Keflex 500 mg oral capsule) 500 mg Oral three times a day for 7 Days meclizine (meclizine 25 mg oral tablet) 25 [...] Upcoming Appointments Date Time Location Reason Provider 08/25/2012 14:00 FBHB Ophth eye exam ktts submitted Juan Ramon vIy MD Your Goals/Additional instructions: Source: [facility] POWERCHART Document Id: [id number] Miscellaneous - Jessica Sebastian P.A.-C. - 08/11/2012 2:07 PM CDT Ambulatory Depart Summary [address] [address] Visit Information Name: ALTHEA ARIAS [facility] Number: [id number] Visit Date: 08/11/2012 14:07:30 Attending Provider: JESSICA SEBASTIANC Primary Care Provider: TIN ROCKWELL CUSTODY ASSISTANT ALTHEA ARIAS has been given the following list of medications: Your Medications It is important to take your medications as directed. Use a pill box or chart to help remind you to take your medications. Please let your doctor or nurse know if you have problems taking your medications. Medication/Strength Dose Route Frequency Indications/Special Instructions/Comments cephalexin (Keflex 500 mg oral capsule) 500 mg Oral three times a day for 7 Days meclizine (meclizine 25 mg oral tablet) 25 [...] your provider for clarification. Additional Information: Source: [facility] POWERCHART Document Id: [id number] Miscellaneous - Courtney Pérez L.P.N. - 08/11/2012 1:40 PM CDT Adult Design Draftsman Intake/History Adult Design Draftsman Intake/History Entered On: 08/11/2012 13:44 CDT Performed On: 08/11/2012 13:40 CDT by COURTNEY PÉREZ Intake Chief Complaint : fell about a week ago and entire body aches, bruise on L chin, and can't bend kneew a lot of pain Temperature Core : 36.3 DegC(Converted to: 97.3 DegF) (LOW) Peripheral Pulse Rate : 72 /min Respiratory Rate : 16 /min Systolic Blood Pressure : 98 mmHg Diastolic Blood Pressure : 58 mmHg NIBP Mean : 71 mmHg BP Location : Left upper extremity Blood Pressure Cuff Size : Large Height : 155 cm(Converted to: 5 ft 1 inch(es), 61.02 inch(es)) Actual Weight : 76 kg(Converted to: 167 lb 9 oz) Weight Source : Standing scale Dosing Weight Clinic : 76 kg Clinic BSA : 1.81 Body Mass Index : 31.63 kg/m2 COURTNEY PÉREZ - 08/11/2012 13:40 CDT General Info Information Given By : Patient Languages : Uzbek COURTNEY PÉREZ - 08/11/2012 13:40 CDT Subjective Pain Symptoms : Yes COURTNEY PÉREZ - 08/11/2012 13:40 CDT Pain Pain Assessment Grid Pain 1 Location : Knee COURTNEY PÉREZ - 08/11/2012 13:40 CDT Dependent Habits Tobacco Use/Currently Using : No Smoking Status : Never smoker COURTNEY PÉREZ - 08/11/2012 13:40 CDT Caffeine Use Grid Caffeine Use : Current Type : Coffee, Tea Frequency : Daily COURTNEY PÉREZ - 08/11/2012 13:40 CDT Recreational Drug Use Grid Drug Use : None COURTNEY PÉREZ - 08/11/2012 13:40 CDT Source: [facility] POWERCHART Document Id: [id number]!37 documented in this encounter Plan of Treatment Upcoming Encounters Date Type Specialty Care Team Description 02/01/2022 Comprehensive Visit Family Medicine Tin Rockwell, Kuldip PRN, C.N.P. [address] [phone] (Wo rk) documented as of this encounter Visit Diagnoses Not on filedocumented in this encounter
--- OUTSIDE RECORDS SUMMARY | 2022-01-21 23:28 | XMS_ITS | Encounter Summary ---
:1955 Author Organization [facility] Address [address] [place] [address] Care Team Providers Name Role Phone Unavailable Primary Care Provider Unavailable Encounter Details Date Type Department Care Team Description 09/01/2013 Hospital Encounter HX [facility] FB[facility] LAB Perry Arana A PRN, C.N.P. [address] [place], [place] [phone] (Wo rk) Social History [...] - - Height 158 cm (5' 2.21) 09/01/2013 2:09 PM CDT Body Mass Index - - [...] Cynthia Rockwell A PRN, C.N.P. [address], [place] [phone] (Wo rk) documented as of this encounter Procedures Procedure Name Priority Date/Time Associated Comments Diagnosis AUTOMATED DIFFERENTIAL, Routine 09/01/2013 2:10 R esults for this B PM CDT procedure are i n the results section. SEDIMENTATION RATE, B Routine 09/01/2013 2:10 Res ults for this PM CDT procedure are i n the results section. CBC WITH DIFFERENTIAL, B Routine 09/01/2013 2:10 Results for this PM CDT procedure are i n the results section. ASPARTATE Routine 09/01/2013 2:10 Results for this AMINOTRANSFERASE (AST), PM CDT proc edure are in S/P the results section. CREATININE WITH EGFR, Routine 09/01/2013 2:10 Res ults for this S/P PM CDT procedure are i n the results section. C-REACTIVE PROTEIN Routine 09/01/2013 2:10 Result s for this (CRP), S/P PM CDT procedure are i n the results section. documented in this encounter Results (ABNORMAL) Automated Differential (09/01/2013 2:10 PM CDT) [facility] gist Method Time Signature Absolute 1.50 (L) 1.70 - POWERCHART Neutrophils 7.00 109L Lymphocytes 1.34 0.90 - POWERCHART 2.90 X109L Monocytes 0.49 0.30 - POWERCHART 0.90 X109L Eosinophils 0.17 0.05 - POWERCHART 0.50 X109L Absolute 0.01 0.00 - POWERCHART Basophil 0.30 X109L Specimen Anatomical Collection Method Collection Time Receive d Time (Source) Location / / Volume Laterality Blood 09/01/2013 2:10 PM 09/01/201 4 2:10 CDT PM CDT Perry Arana APRN, C.N.P. LAB BLOOD ADD-ON Performing Organization Address City/[facility] Phon e Number POWERCHART (ABNORMAL) Sedimentation Rate (09/01/2013 2:10 PM CDT) [facility] Method Time Signature Sedimentation 45 (H) 0 - 29 POWERCHART Rate, B MMHR Specimen (Source) Anatomical Collection Method Collection Time Re ceived Time Location / / Volume Laterality Blood 09/01/2013 2:10 PM CDT Perry Arana APRN, C.N.P. LAB BLOOD ADD-ON Performing Organization Address [facility] Phon e Number POWERCHART CBC with Differential (09/01/2013 2:10 PM CDT) P athologist Signature Leukocytes 3.5 3.4 - 10.5 POWERCHART X109L Erythrocytes 4.13 3.90 - POWERCHART 5.03 [id number] Hemoglobin 12.5 12.0 - POWERCHART 15.5 GDL Hematocrit 38.3 34.9 - POWERCHART 44.5 MCV 92.7 82.0 - POWERCHART 98.0 FL Platelet Count 193 150 - 450 POWERCHART X109L HX RDW 14.6 11.9 - POWERCHART 15.5 HXDifferential? Auto POWERCHART Specimen (Source) Anatomical Collection Method Collection Time Re ceived Time Location / / Volume Laterality Blood 09/01/2013 2:10 PM CDT Perry Arana APRN, C.N.P. LAB BLOOD ADD-ON Performing Organization Address [facility] Phon e Number POWERCHART AST (Aspartate Aminotransferase) (09/01/2013 2:10 PM CDT) [facility] gist Method Time Signature Aspartate 21 8 - 43 POWERCHART Aminotransferase UNITL (AST), S Specimen (Source) Anatomical Collection Method Collection Time Re ceived Time Location / / Volume Laterality Blood 09/01/2013 2:10 PM CDT Perry Arana APRN, C.N.P. LAB BLOOD ADD-ON Performing Organization Address City/State/ZIP Code Phon e Number POWERCHART (ABNORMAL) Creatinine with eGFR (09/01/2013 2:10 PM CDT) P athologist Signature Creatinine 0.6 (L) 0.7 - 1.2 POWERCHART MGDL HXeGFR (MDRD) >60 MLMIN POWERCHART eGFR >60 MLMIN POWERCHART Black/ Specimen (Source) Anatomical Collection Method Collection Time Re ceived Time Location / / Volume Laterality Blood 09/01/2013 2:10 PM CDT Perry Arana APRN, C.N.P. LAB BLOOD ADD-ON Performing Organization Address City/[facility] Phon e Number POWERCHART (ABNORMAL) CRP (C-Reactive Protein) (09/01/2013 2:10 PM CDT) athologist Signature C-Reactive 14.3 (H) <=8.0 MGL POWERCHART Protein (CRP), S Comment: Test Performed by: [facility] [place] [address] Election Watcher: Nathan almaguer III, M.D. Specimen (Source) Anatomical Collection Method Collection Time Re ceived Time Location / / Volume Laterality Blood 09/01/2013 2:10 PM CDT Perry Arana APRN, C.N.P. LAB BLOOD ADD-ON Performing Organization Address City/State/[facility] Code Phon e Number POWERCHART documented in this encounter Visit Diagnoses Not on filedocumented in this encounter
--- OUTSIDE RECORDS SUMMARY | 2022-01-21 23:28 | XMS_ITS | Encounter Summary ---
:1955 Author Organization [facility] Address [address] [place] [address] Care Team Providers Name Role Phone Unavailable Primary Care Provider Unavailable Encounter Details Date Type Department Care Team Description 01/28/2013 Hospital Encounter HX [facility] Cynthia Rodriguez, CHILD CARE ASSOCIATE, C.N.P. [address] [place], [place] [phone] (Wo rk) Social History [...] Rockwell A PRN, C.N.P. [address] [place], [place] [phone] (Wo rk) documented as of this encounter Procedures Procedure Name Priority Date/Time Associated Diagnosis Comme nts BI BREAST SCREENING Routine 01/28/2013 2:23 PM Re sults for this BILATERAL EMERGENCY SERVICES PROFESSIONAL procedure are i n the results section. documented in this encounter Results BI Breast Screening Bilateral (01/28/2013 2:23 PM EMERGENCY SERVICES PROFESSIONAL) Anatomical Region Laterality Modality Breast Bilateral Mammography Specimen (Source) Anatomical Collection Method Collection Time Re ceived Time Location / / Volume Laterality 01/28/2013 2:23 PM EMERGENCY SERVICES PROFESSIONAL Impressions 01/28/2013 4:23 PM EMERGENCY SERVICES PROFESSIONAL Stable negative mammogram, BIRADS 1. Yearly mammograms are recommended. MAMMOGRAPHY - GENERAL OBSERVATIONS: The reported false negative rate for mammography is 15-20%. It cannot be used, therefore, to replace the regular physical examination. A norm al or noncontributory mammogram report also should not deter t he aggressive further workup of any suspected palpable masses. Narrative 01/28/2013 4:23 PM EMERGENCY SERVICES PROFESSIONAL HISTORY: Screening mammogram. Technique: Bilateral digital mammograms were obtained in the CC and MLO projections. COMPARISON: 10/09/2011 and prior. FINDINGS: There has been no significant interval change. The breast parenchymal pattern is almost entirely f at. There is no mammographic evidence of a new dominant spiculated ma ss, clustered pleomorphic microcalcifications, or architectural di stortion. No new skin thickening, enlarged lymph nodes, or oth er definite concerning findings. CAD was utilized. Procedure Note Shukri Wang M.D. / Provider, Israel urias M.D. - 07/20/2016 HISTORY: Screening mammogram. Technique: Bilateral digital mammograms were obtained in the CC and MLO projections. COMPARISON: 10/09/2011 and prior. FINDINGS: There has been no significant interval change. The breast parenchymal pattern is almost entirely f at. There is no mammographic evidence of a new dominant spiculated ma ss, clustered pleomorphic microcalcifications, or architectural di stortion. No new skin thickening, enlarged lymph nodes, or oth er definite concerning findings. CAD was utilized. IMPRESSION: Stable negative mammogram, B IRADS 1. Yearly mammograms are recommended. MAMMOGRAPHY - GENERAL OBSERVATIONS: The reported false negative rate for mammography is 15-20%. It cannot be used, therefore, to replace the regular physical examination. A norm al or noncontributory mammogram report also should not deter t he aggressive further workup of any suspected palpable masses. Socorro Hayward R.T.(R), R.T.(R)(M) IMPer MARTINEZ documented in this encounter Visit Diagnoses Not on filedocumented in this encounter
--- OUTSIDE RECORDS SUMMARY | 2022-01-21 23:28 | XMS_ITS | Encounter Summary ---
:1955 Author Organization [facility] Address [address] [place] [address] Care Team Providers Name Role Phone Unavailable Primary Care Provider Unavailable Encounter Details Date Type Department Care Team Description 09/29/2012 Hospital Encounter HX [facility] LAB Tin Schmidt A PRN, C.N.P. [address] [place], [place] [phone] (Wo rk) Social History [...] of this encounter Miscellaneous Notes Miscellaneous - Cornelia Messina, ZariP.N. - 10/02/2012 11:27 AM CDT Colorectal Cancer Screening Due From: CORNELIA MESSINA LPN To: KARI MCNALLY; Sent: 10/02/2012 11:27:11 CDT Show up: 09/20/2013 11:27:00 CDT Subject: Colorectal Cancer Screening Due Due Date/Time: 09/29/2013 11:27:00 CDT Please Remember to: Patient is due for colorectal cancer screening. Patient last completed a FIT test on 09/29/2012. This type of testing is due yearly. Please call and advise patient. PATIENT: ( x ) Call Patient ( ) Ask Patient to ( ) ( ) Call Relative ( ) Schedule Patient ( ) ( ) Call for Risk Intern ( ) Follow up on Results ( ) Other: PROVIDER: ( ) Call Physician ( ) Call Pharmacist ( ) Call Lab ( ) Other: Special Instructions: Comments: Source: [facility] POWERCHART Document Id: [id number] Electronically signed by Zaheer, [facility] Resource Conservationist [id number] at 08/01/2016 9:54 AM CDT Miscellaneous - Tin Schmidt APRN, C.N.P. - 09/30/2012 1:12 PM CDT Normal Results Letter 30 September 2012 ALTHEA ARIAS [address] [place] [phone] Dear ALTHEA ARIAS, I am pleased to report that your results from the following diagnostic test(s) are normal. Please follow up with us as we discussed during your visit or sooner if you have any concerns. If you have questions or concerns, please do not hesitate to call our office. Result Name Current Result Normal Range Fecal Occult Bld-Jeff Negative 09/29/2012 Negative - Sincerely, TIN SCHMIDT [address] [place] [place], [place] [phone] Electronic Signature Electronically Signed By: TIN SCHMIDT CNP On: 30 September 2012 This document has images extracted. Source: [facility] POWERCHART Document Id: [id number] Electronically signed by Zaheer [facility] Resource Conservationist [id number] at 08/01/2016 9:54 AM CDT documented in this encounter Plan of Treatment Upcoming Encounters Date Type Specialty Care Team Description 02/01/2022 Comprehensive Visit Family Medicine Tin Schmidt A PRN, C.N.P. [address], [place] [phone] (Wo rk) documented as of this encounter Procedures Procedure Name Priority Date/Time Associated Diagnosis Comme nts OCCULT BLOOD, QL, Routine 09/29/2012 1:48 PM Resu lts for this IMMUNOCHEMICAL, F CDT procedure are in the results section. documented in this encounter Results Fecal Occult Blood, Colorectal Cancer Screen, Qualitative, Immunochemical (09/29/2012 1:48 PM CDT) athologist Signature Occult Blood, Negative Negative POWERCHART Fecal Comment: Negative result. ??This test will not de tect upper gastrointestinal bleeding; the HemoQuant test ([id number])should be ordered if clinically indicated. Test Performed by: [facility] [address] [place] [address] General Supervisor: Nathan almaguer III, M.D. Specimen (Source) Anatomical Collection Method Collection Time Re ceived Time Location / / Volume Laterality Stool 09/29/2012 1:48 PM CDT Tin Schmidt GOVERNMENT AFFAIRS FELLOW, C.N.P. LAB BODY FLUIDS AND STOOLS ORDERABLES Performing Organization Address City/State/ZIP Code Phon e Number POWERCHART documented in this encounter Visit Diagnoses Not on filedocumented in this encounter
--- OUTSIDE RECORDS SUMMARY | 2022-01-21 23:28 | XMS_ITS | Encounter Summary ---
:1955 Author Organization [facility] Address [address] [place] [address] Care Team Providers Name Role Phone Unavailable Primary Care Provider Unavailable Encounter Details Date Type Department Care Team Description 12/14/2013 Hospital Encounter HX [facility] FB[facility] LAB Cynthia Rockwell A PRN, C.N.P. [address] [place], [place] [phone] (Wo rk) Social History [...] - Height 158 cm (5' 2.21) 12/14/2013 12:41 PM CDT Body Mass Index - - [...] Medicine Cynthia Rockwell A PRN, C.N.P. [address] [phone] (Wo rk) documented as of this encounter Procedures Procedure Name Priority Date/Time Associated Comments Diagnosis ASPARTATE Routine 12/14/2013 12:48 Results for this AMINOTRANSFERASE (AST), PM CDT proc edure are in S/P the results section. CREATININE WITH EGFR, Routine 12/14/2013 12:48 Re sults for this S/P PM CDT procedure are i n the results section. AUTOMATED DIFFERENTIAL, Routine 12/14/2013 12:48 Results for this B PM CDT procedure are i n the results section. CBC WITH DIFFERENTIAL, B Routine 12/14/2013 12:48 Results for this PM CDT procedure are i n the results section. documented in this encounter Results Creatinine with eGFR (12/14/2013 12:48 PM CDT) P athologist Signature Creatinine 0.7 0.7 - 1.2 POWERCHART MGDL HXeGFR (MDRD) >60 MLMIN POWERCHART eGFR >60 MLMIN POWERCHART Black/ Specimen (Source) Anatomical Collection Method Collection Time Re ceived Time Location / / Volume Laterality Blood 12/14/2013 12:48 PM CDT Cynthia Rockwell [employer], C.N.P. LAB BLOOD ADD-ON Performing Organization Address City/State/ZIP Code [facility] e Number POWERCHART AST (Aspartate Aminotransferase) (12/14/2013 12:48 PM CDT) Patholo gist Method Time Signature Aspartate 21 8 - 43 POWERCHART Aminotransferase UNITL (AST), S Specimen (Source) Anatomical Collection Method Collection Time Re ceived Time Location / / Volume Laterality Blood 12/14/2013 12:48 PM CDT Cynthia Rockwell APRN, C.N.P. LAB BLOOD ADD-ON Performing Organization Address City/[facility] Code Phon e Number POWERCHART Automated Differential (12/14/2013 12:48 PM CDT) P athologist Signature Absolute 3.19 1.70 - POWERCHART Neutrophils 7.00 109L Lymphocytes 1.74 0.90 - POWERCHART 2.90 X109L Monocytes 0.77 0.30 - POWERCHART 0.90 X109L Eosinophils 0.10 0.05 - POWERCHART 0.50 X109L Absolute 0.02 0.00 - POWERCHART Basophil 0.30 X109L Specimen Anatomical Collection Method Collection Time Receive d Time (Source) Location / / Volume Laterality Blood 12/14/2013 12:48 12/14/2013 PM CDT 12:48 PM CDT Cynthia Rockwell APRN, C.N.P. LAB BLOOD ADD-ON Performing Organization Address City/[facility] Phon e Number POWERCHART CBC with Differential (12/14/2013 12:48 PM CDT) P athologist Signature Leukocytes 5.8 3.4 - 10.5 POWERCHART X109L Erythrocytes 4.50 3.90 - POWERCHART 5.03 [id number] Hemoglobin 13.4 12.0 - POWERCHART 15.5 GDL Hematocrit 41.3 34.9 - POWERCHART 44.5 MCV 91.8 82.0 - POWERCHART 98.0 FL Platelet Count 203 150 - 450 POWERCHART X109L HX RDW 14.7 11.9 - POWERCHART 15.5 HXDifferential? Auto POWERCHART Specimen (Source) Anatomical Collection Method Collection Time Re ceived Time Location / / Volume Laterality Blood 12/14/2013 12:48 PM CDT Cynthia Rockwell APRN C.N.P. LAB BLOOD ADD-ON Performing Organization Address City/State/ZIP Code Phon e Number POWERCHART documented in this encounter Visit Diagnoses Not on filedocumented in this encounter
--- OUTSIDE RECORDS SUMMARY | 2022-01-21 23:28 | XMS_ITS | Encounter Summary ---
:1955 Author Organization [facility] Address [address] [place] [address] Care Team Providers Name Role Phone Unavailable Primary Care Provider Unavailable Encounter Details Date Type Department Care Team Description 09/16/2013 Hospital Encounter HX [facility] Kari Ibarra, PLATING EQUIPMENT TENDER, C.N.P. [address] [place] [address] (Wo rk) Social History Tobacco [...] Reading Time Taken Comments Blood Pressure 110/60 09/16/2013 10:27 AM CDT Pulse 64 09/16/2013 10:27 AM CDT Temperature - - Respiratory Rate 16 09/16/2013 10:27 AM CDT Oxygen Saturation - - Inhaled Oxygen Concentration - - Weight 75.2 kg (165 lb 12.6 oz) 09/16/2013 10:27 AM CDT Height 158 cm (5' 2.21) 09/16/2013 10:27 AM CDT Body Mass Index 30.12 09/16/2013 10:27 AM CDT documented in this encounter Medications [...] as of this encounter Progress Notes Tin Ibarra, SOHAN, C.N.P. - 09/16/2013 9:58 AM CDT [id number] CHIEF COMPLAINT/REASON FOR VISIT 1. Rheumatoid arthritis. 2. Low back pain. 3. Shortness of breath, worse at night. HISTORY OF PRESENT ILLNESS Althea is here with her son, <__IM_1: UNCLEAR > who speaks Kyrgyz. She is also being seen with the assistance of ABISAI rasheed. She had appointment with [facility] on 09/11/2013. She is currently on Arava, methotrexate, Plaquenil and prednisone. She needs to continue having her CBC, AST and creatinine checked every 3 months and faxed to [facility]. She also needs regular eye exams. She is due for her next eye exam in December. She had complaints of low back pain while there and they recommended a lumbar spine x- ray which she wanted to do here in [place]. Will get that today and fax results to them. She also had complaints of shortness of breath primarily at night with some dry mouth. Ship Liner has concern about sleep related breathing disorder and in his note states sheneeds an overnight sleep study, however, both she and the son are adamant that what she was told wasthat she could do an overnight pulse oximetry at home and she does not want to do an overnight hospital test. I will go ahead and set up the overnight pulse oximetry for her as soon as I can get that arranged, and again will fax the results down to Rheumatology. MEDICATIONS See depart summary from today. ALLERGIES None. SYSTEMS REVIEW Positive for that mentioned in the history of present illness and noted in the past medical history in the EMR. All other systems were reviewed and were negative. Preventive up-to-date. VITAL SIGNS See EMR. PHYSICAL EXAMINATION GENERAL: Well-developed, well-nourished female, in no acute distress. SKIN: Warm and dry. HEENT: TMs clear. Throat clear. NECK: Supple. No lymphadenopathy or thyromegaly. HEART: Regular rate and rhythm. LUNGS: Clear to auscultation. ABDOMEN: Soft, nontender. No hepatosplenomegaly. Normal range of motion of the lumbar spine. Some tenderness to palpation over the lumbosacral paraspinal musculature. Deep tendon reflexes 2+ and symmetrical. EXTREMITIES: Warm, dry, no peripheral edema. IMPRESSION/REPORT/PLAN 1. Rheumatoid arthritis, following with [facility]. Will continue to do a CBC, AST and creatinine every 3 months here and results will be faxed to [facility]. 2. Low back pain. Will get a lumbar x-ray today and consider physical therapy or a consult with Dr. Pedersen for possible injection, per die mechanic's recommendation. 3. Shortness of breath, worse at night. Will check overnight pulse oximetry, and follow up with her for results. She will continue with [facility] appointments every 4 months. Tin Ibarra CNP/viet Electronically Signed By: TIN IBARRA CNP On: 09/17/2013 11:47 AM Source: [facility] BIANCASDOLBEYNVANESSA Document Id: [id number] documented in this encounter Nursing Notes Gunjan Meza L.P.NShelton - 09/16/2013 2:55 PM CDT Referrals Informed Althea that back x-ray was negative and that Tin [facility]. Faxed over order to [facility] and also a respiratory requisition for overnight oximetry.Informed Martijannet Fajardo [employer]pre[employer] that [facility] and scheduling from [facility] will be contacting her for appointments. Electronically Signed By: GUNJAN MEZA LPN On: 09/16/2013 02:59 PM [facility] Document Id: [id number] Tin Ibarra APRN, C.N.P. - 09/16/2013 10:53 AM CDT Ambulatory Patient Education The following Patient Education Materials have been given to the patient: Patient Education Materials: Ambulatory BACK PAIN (Acute or Chronic) Ambulatory [id number] BACK PAIN [acute or chronic] Back pain is usually caused by an injury to the muscles or ligaments of the spine. Sometimes the disks that separate each bone in the spine may bulge and cause pain by pressing on a nearby nerve. Back pain may also appear after a sudden twisting/bending force (such as in a car accident), after a simple awkward movement, or lifting something heavy with poor body positioning. In either case, muscle spasm is often present and adds to the pain. Acute back pain usually gets better in one to two weeks. Back pain related to disk disease, arthritis in the spinal joints or spinal stenosis (narrowing of the spinal canal) can become chronic and lastfor months or years. Unless you had a physical injury (for example, a car accident or fall) X-rays are usually not ordered for the initial evaluation of back pain. If pain continues and does not respond to medical treatment, x-rays and other tests may be performed at a later time. HOME CARE: 1. You may need to stay in bed the first few days. But, as soon as possible, begin sitting or walking to avoid problems with prolonged bed rest (muscle weakness, worsening back stiffness and pain, blood clots in the legs). 2. When in bed, try to find a position of comfort. A firm mattress is best. Try lying flat on your back with pillows under your knees. You can also try lying on your side with your knees bent up towards your chest and a pillow between your knees. 3. Avoid prolonged sitting. This puts more stress on the lower back than standing or walking. 4. During the first two days after injury, apply an ICE PACK to the painful area for 20 minutes every 2-4 hours. This will reduce swelling and pain. HEAT (hot shower, hot bath or heating pad) works well for muscle spasm. You can start with ice, then switch to heat after two days. Some patients feel best alternating ice and heat treatments. Use the one method that feels the best to you. 5. You may use acetaminophen (Tylenol) or ibuprofen (Motrin, Advil) to control pain, unless another pain medicine was prescribed. [NOTE: If you have chronic liver or kidney disease or ever had a stomach ulcer or GI bleeding, talk with your doctor before using these medicines.] 6. Be aware of safe lifting methods and do not lift anything over 15 pounds until all the pain is gone. FOLLOW UP with your doctor or this facility if your symptoms do not start to improve after one week.Physical therapy may be needed. [NOTE: If X-rays were taken, they will be reviewed by a radiologist. You will be notified of any newfindings that may affect your care.] GET PROMPT MEDICAL ATTENTION if any of the following occur: ?? Pain becomes worse or spreads to your legs ?? Weakness or numbness in one or both legs ?? Loss of bowel or bladder control Numbness in the groin or genital area ?? [id number] [place] [address]. All rights reserved. This information is not intended as a substitute for professional medical care. Always follow your healthcare professional's instructions. This document has images extracted. Please consider using [employer] for all your patient education needs. Source: [facility] POWERCHART Document Id: [id number] documented in this encounter Miscellaneous Notes Miscellaneous - Saranya Ruiz R.N. - 12/21/2014 5:00 PM CDT *Medication Refill Msg Document Contains Addenda Addendum by ZACARIAS DUDLEY LPN on 23 December 2014 10:04:18 CDT Script placed at front end specialist for Front to call. Addendum by JUAN NICOLE MD on 23 December 2014 09:13:42 CDT From: JUAN NICOLE MD To: Helen Nurse; Sent: 12/23/2014 09:13:42 CDT Subject: RE: *Medication Refill Msg done From: SARANYA RUIZ RN ( [place] Medication Refill) To: JUAN NICOLE MD; Cc: Helen Nurse; Sent: 12/21/2014 17:00:19 CDT Subject: *Medication Refill Msg Caller is: ( ) Patient ( ) Mother ( ) Father ( ) Spouse ( ) Daughter ( ) Son ( ) Pharmacy ( ) Other: Provider: tin ibarra Pharmacy: please call patient when ready to hot die picker script Name of Medications Needing Refill:norco 5-325mg tab - one tab po once daily at bedtime for 8 days. max acetaminophen dose 4000mg in 24 hrs. Last Refill Date: 12-06-14 #8 Additional Information: Last / Future Appointment:12-14-14 [place] [place] Disposition: ( ) Send to Pharmacy ( ) Call to Pharmacy ( ) Patient will hot die picker Script ( ) Mail Rx to Patient Source: [facility] POWERCHART Document Id: [id number] Electronically signed by Zaheer [facility] Director Payer [phone] at 07/31/2016 2:00 PM CDT Miscellaneous - Gunjan Meza L.P.NShelton - 09/17/2013 11:47 AM CDT RE: Overnight oximetry Document Contains Addenda Addendum by GUNJAN MEZA LPN on 22 September 2013 10:03:51 CDT Contacted Sean and informed of cost of overnight oximetry. Would like to proceed with this. Refaxed order to [facility]. Also notified scheduling at [facility] that they would like to proceed. Addendum by GUNJAN MEZA LPN on 21 September 2013 11:19:57 CDT Attempted to contact Son (Sean) to inform him of the cost. Scheduling stated it would be between 230.00 and 250.00.Message left to return my call. Addendum by GUNJAN MEZA LPN on 21 September 2013 08:37:15 CDT Talked with son (Sean) who stated that they wanted to know the cost of the overnight oximetry. They would consider doing depending on the cost. Call placed to [facility] to check into theprice last . Have not heard from them as of today. Call placed again today to scheduling. Addendum by TIN IBARRA CNP on 17 September 2013 12:04:21 CDT From: TIN IBARRA CNP To: GUNJAN MEZA LPN; Sent: 09/17/2013 12:04:21 CDT Subject: RE: Overnight oximetry No. Patient wants to cancel. From: GUNJAN MEZA LPN To: TIN IBARRA CNP; Sent: 09/17/2013 11:47:58 CDT Subject: RE: Overnight oximetry Marina from [facility] scheduling called and informed me that insurance does not cover over night oximetry. If you wanted to continue with this she stated that ABN would have to be done and Althea would be responsible for cost. They have the patient come in and show them how to use the machine and then they bring it back in to be read. Do you want her to do this? Source: [facility] POWERCHART Document Id: [id number] Electronically signed by Conversion, [facility] Director Payer [phone] at 07/31/2016 2:00 PM CDT Miscellaneous - Tin Ibarra APRN, C.N.P. - 09/16/2013 10:53 AM CDT Ambulatory Patient Summary [address] [id number] Visit Information Name: ALTHEA ARIAS [facility] Number: [id number] Current Date: 09/16/2013 10:53:43 Physicians Attending Provider: TIN IBARRA CNP Primary Care Provider: TIN IBARRA CNP ALTHEA ARIAS has been given the [...] the Following Medications: Medication list as of 09-16-13 10:53 Attention: If you have any medications at home that are not on this list, DO NOT take them until youcontact your provider for clarification. Give a copy of your medication list to your primary care provider. Update your medication list any time medications or doses are changed and carry your medication list at all times in case of emergency. 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 [id number] BACK PAIN [acute or chronic] Back pain is usually caused by an injury to the muscles or ligaments of the spine. Sometimes the disks that separate each bone in the spine may bulge and cause pain by pressing on a nearby nerve. Back pain may also appear after a sudden twisting/bending force (such as in a car accident), after a simple awkward movement, or lifting something heavy with poor body positioning. In either case, muscle spasm is often present and adds to the pain. Acute back pain usually gets better in one to two weeks. Back pain related to disk disease, arthritis in the spinal joints or spinal stenosis (narrowing of the spinal canal) can become chronic and lastfor months or years. Unless you had a physical injury (for example, a car accident or fall) X-rays are usually not ordered for the initial evaluation of back pain. If pain continues and does not respond to medical treatment, x-rays and other tests may be performed at a later time. HOME CARE: 1. You may need to stay in bed the first few days. But, as soon as possible, begin sitting or walking to avoid problems with prolonged bed rest (muscle weakness, worsening back stiffness and pain, blood clots in the legs). 2. When in bed, try to find a position of comfort. A firm mattress is best. Try lying flat on your back with pillows under your knees. You can also try lying on your side with your knees bent up towards your chest and a pillow between your knees. 3. Avoid prolonged sitting. This puts more stress on the lower back than standing or walking. 4. During the first two days after injury, apply an ICE PACK to the painful area for 20 minutes every 2-4 hours. This will reduce swelling and pain. HEAT (hot shower, hot bath or heating pad) works well for muscle spasm. You can start with ice, then switch to heat after two days. Some patients feel best alternating ice and heat treatments. Use the one method that feels the best to you. 5. You may use acetaminophen (Tylenol) or ibuprofen (Motrin, Advil) to control pain, unless another pain medicine was prescribed. [NOTE: If you have chronic liver or kidney disease or ever had a stomach ulcer or GI bleeding, talk with your doctor before using these medicines.] 6. Be aware of safe lifting methods and do not lift anything over 15 pounds until all the pain is gone. FOLLOW UP with your doctor or this facility if your symptoms do not start to improve after one week.Physical therapy may be needed. [NOTE: If X-rays were taken, they will be reviewed by a radiologist. You will be notified of any newfindings that may affect your care.] GET PROMPT MEDICAL ATTENTION if any of the following occur: ?? Pain becomes worse or spreads to your legs ?? Weakness or numbness in one or both legs ?? Loss of bowel or bladder control Numbness in the groin or genital area ?? [id number] [place] [address]. All rights reserved. This information is not intended as a substitute for professional medical care. Always follow your healthcare professional's instructions. Your Goals/Additional instructions: This document has images extracted. Please consider using [employer] for all your patient education needs. Source: [facility] POWERCHART Document Id: [id number] Miscellaneous - Tin Ibarra APRN, C.N.P. - 09/16/2013 10:53 AM CDT Ambulatory Discharge Medication List [address] [id number] Visit Information Name: ALTHEA ARIAS [facility] Number: [id number] Visit Date: 09/16/2013 10:53:42 Attending Provider: TIN IBARRA CNP Primary Care Provider: TIN IBARRA CNP ALTHEA ARIAS has been given the [...] the Following Medications: Medication list as of 09-16-13 10:53 Attention: If you have any medications at home that are not on this list, DO NOT take them until youcontact your provider for clarification. Give a copy of your medication list to your primary care provider. Update your medication list any time medications or doses are changed and carry your medication list at all times in case of emergency. Electronically Signed By: TIN IBARRA CNP Signed On:16-SEP-2013 10:53:12 Additional Information: Source: [facility] POWERCHART Document Id: [id number] Miscellaneous - Gunjan Meza L.P.N. - 09/16/2013 10:27 AM CDT Adult Box Estimator Intake/History Adult Box Estimator Intake/History Entered On: 09/16/2013 10:30 CDT Performed On: 09/16/2013 10:27 CDT by GUNJAN MEZA LPN Intake Chief Complaint : Wants x-ray of lower back pain. [place] advised. Temperature Core : 37.0 DegC(Converted to: 98.6 DegF) Peripheral Pulse Rate : 64 /min Respiratory Rate : 16 /min Heart Rhythm : Regular Systolic Blood Pressure : 110 mmHg Diastolic Blood Pressure : 60 mmHg NIBP Mean : 77 mmHg BP Location : Left upper extremity Blood Pressure Cuff Size : Regular Height : 158 cm(Converted to: 5 ft 2 inch(es), 62 inch(es)) Actual Weight : 75.2 kg(Converted to: 165 lb 13 oz) Weight Source : Standing scale Dosing Weight Clinic : 75.2 kg Clinic BSA : 1.82 Body Mass Index : 30.12 kg/m2 AXELMAXIME WhiteheadGUNJANGALO TO LPN - 09/16/2013 10:27 CDT General Info Information Given By : Patient, Other: Son is interperting Preferred Communication Mode : Verbal Languages : Tristanian GUNJAN MEZA LPN - 09/16/2013 10:27 CDT Subjective Pain Symptoms : Yes GUNJAN MEZA LPN - 09/16/2013 10:27 CDT Pain Pain Assessment Grid Pain 1 Location : Lower back Laterality : Bilateral Intensity : 7 GUNJAN MEZA LPN - 09/16/2013 10:27 CDT Dependent Habits Tobacco Use/Currently Using : No Exposure to Tobacco Smoke : Other: never Smoking Status : Never smoker GUNJAN MEZA LPN - 09/16/2013 10:27 CDT Caffeine Use Grid Caffeine Use : Current Type : Coffee, Tea Frequency : Daily GUNJAN MEZA LPN - 09/16/2013 10:27 CDT Recreational Drug Use Grid Drug Use : None GUNJAN MEZA LPN - 09/16/2013 10:27 CDT Source: [facility] POWERCHART Document Id: [id number]!42 documented in this encounter Plan of Treatment Upcoming Encounters Date Type Specialty Care Team Description 02/01/2022 Comprehensive Visit Family Medicine Tin Ibarra, Kuldip PRN, C.N.P. [address], [place] [address] (Wo rk) documented as of this encounter Procedures Procedure Name Priority Date/Time Associated Diagnosis Comme nts DX LUMBAR SPINE 2-3 Routine 09/16/2013 10:45 AM R esults for this VIEWS CDT procedure are i n the results section. documented in this encounter Results DX Lumbar Spine 2-3 Views (09/16/2013 10:45 AM CDT) Anatomical Region Laterality Modality Lumbar Spine N/A Radiographic Imaging Specimen (Source) Anatomical Collection Method Collection Time Re ceived Time Location / / Volume Laterality 09/16/2013 10:45 AM CDT Impressions 09/16/2013 11:21 AM CDT Negative lumbosacral spine. Narrative 09/16/2013 11:21 AM CDT EXAM: XR Lumbar Spine 2 or 3 views INDICATION: low back pain COMPARISON: None. FINDINGS: Bones show some osteopenia. Th ere are 5 lumbar type vertebrae which are normal in height and alignment without evidence of fracture or destructive lesions. Disc spaces are preserved without degenerative change. Sacroiliac joints a re unremarkable. There is an apparent injection granulomata in the ri t buttocks posteriorly. Procedure Note Berto Winter Jr., M.D. / Cyril Antony M.D. - 07/13/2016 EXAM: XR Lumbar Spine 2 or 3 views INDICATION: low back pain COMPARISON: None. FINDINGS: Bones show some osteopenia. Th ere are 5 lumbar type vertebrae which are normal in height and alignment without evidence of fracture or destructive lesions. Disc spaces are preserved without degenerative change. Sacroiliac joints a re unremarkable. There is an apparent injection granulomata in the ri ght buttocks posteriorly. IMPRESSION: Negative lumbosacral spine. Historical Provider IMG DIAGNOSTIC IMAGING PROCE DURES documented in this encounter Visit Diagnoses Not on filedocumented in this encounter
--- OUTSIDE RECORDS SUMMARY | 2022-01-21 23:28 | XMS_ITS | Encounter Summary ---
:1955 Author Organization [facility] Address [address] [place] [address] Care Team Providers Name Role Phone Unavailable Primary Care Provider Unavailable Encounter Details Date Type Department Care Team Description 12/08/2013 Hospital Encounter HX [facility] LAB Perry Arana A PRN, C.N.P. [address] [place], [place] [phone] (Wo rk) Social History [...] - - Height 158 cm (5' 2.21) 12/08/2013 11:40 AM CDT Body Mass Index - - [...] Cynthia Rockwell A PRN, C.N.P. [address], [place] [phone] (Wo rk) documented as of this encounter Procedures Procedure Name Priority Date/Time Associated Comments Diagnosis AUTOMATED DIFFERENTIAL, Routine 12/08/2013 11:50 Results for this B AM CDT procedure are i n the results section. SEDIMENTATION RATE, B Routine 12/08/2013 11:50 Re sults for this AM CDT procedure are i n the results section. CBC WITH DIFFERENTIAL, B Routine 12/08/2013 11:50 Results for this AM CDT procedure are i n the results section. C-REACTIVE PROTEIN Routine 12/08/2013 11:50 Resul ts for this (CRP), S/P AM CDT procedure are i n the results section. ASPARTATE Routine 12/08/2013 11:50 Results for this AMINOTRANSFERASE (AST), AM CDT proc edure are in S/P the results section. CREATININE WITH EGFR, Routine 12/08/2013 11:50 Re sults for this S/P AM CDT procedure are i n the results section. documented in this encounter Results (ABNORMAL) Automated Differential (12/08/2013 11:50 AM CDT) [facility] gist Method Time Signature Absolute 1.64 (L) 1.70 - POWERCHART Neutrophils 7.00 109L Lymphocytes 0.99 0.90 - POWERCHART 2.90 X109L Monocytes 0.15 (L) 0.30 - POWERCHART 0.90 X109L Eosinophils 0.15 0.05 - POWERCHART 0.50 X109L Absolute 0.01 0.00 - POWERCHART Basophil 0.30 X109L Specimen Anatomical Collection Method Collection Time Receive d Time (Source) Location / / Volume Laterality Blood 12/08/2013 11:50 12/08/2013 AM CDT 11:50 AM CDT Perry Arana APRN, C.N.P. LAB BLOOD ADD-ON Performing Organization Address [facility] Code Phon e Number POWERCHART Sedimentation Rate (12/08/2013 11:50 AM CDT) Analysis Performed At [facility] Time Signature Sedimentation 22 0 - 29 POWERCHART Rate, B MMHR Specimen (Source) Anatomical Collection Method Collection Time Re ceived Time Location / / Volume Laterality Blood 12/08/2013 11:50 AM CDT Perry Arana APRN, C.N.P. LAB BLOOD ADD-ON Performing Organization Address [facility] Phon e Number POWERCHART (ABNORMAL) CBC with Differential (12/08/2013 11:50 AM CDT) Analysis Performed At [facility] Time Signature Leukocytes 2.9 (L) 3.4 - 10.5 POWERCHART X109L Erythrocytes 4.31 3.90 - POWERCHART 5.03 T9597V Hemoglobin 12.7 12.0 - POWERCHART 15.5 GDL Hematocrit 39.6 34.9 - POWERCHART 44.5 MCV 91.9 82.0 - POWERCHART 98.0 FL Platelet Count 184 150 - 450 POWERCHART X109L HX RDW 14.4 11.9 - POWERCHART 15.5 HXDifferential? Auto POWERCHART Specimen (Source) Anatomical Collection Method Collection Time Re ceived Time Location / / Volume Laterality Blood 12/08/2013 11:50 AM CDT Perry Arana APRN, C.N.P. LAB BLOOD ADD-ON Performing Organization Address [facility] Phon e Number POWERCHART (ABNORMAL) CRP (C-Reactive Protein) (12/08/2013 11:50 AM CDT) athologist Signature C-Reactive 1.2 (H) <=0.8 MGDL POWERCHART Protein (CRP), S Specimen (Source) Anatomical Collection Method Collection Time Re ceived Time Location / / Volume Laterality Blood 12/08/2013 11:50 AM CDT Perry Arana APRN, C.N.P. LAB BLOOD ADD-ON Performing Organization Address City/State/ZIP Code Phon e Number POWERCHART (ABNORMAL) Creatinine with eGFR (12/08/2013 11:50 AM CDT) P athologist Signature Creatinine 0.6 (L) 0.7 - 1.2 POWERCHART MGDL HXeGFR (MDRD) >60 MLMIN POWERCHART eGFR >60 MLMIN POWERCHART Black/ Specimen (Source) Anatomical Collection Method Collection Time Re ceived Time Location / / Volume Laterality Blood 12/08/2013 11:50 AM CDT Perry Arana APRN, C.N.P. LAB BLOOD ADD-ON Performing Organization Address City/State/ZIP Code Phon e Number POWERCHART AST (Aspartate Aminotransferase) (12/08/2013 11:50 AM CDT) Patholo gist Method Time Signature Aspartate 25 8 - 43 POWERCHART Aminotransferase UNITL (AST), S Specimen (Source) Anatomical Collection Method Collection Time Re ceived Time Location / / Volume Laterality Blood 12/08/2013 11:50 AM CDT Perry Arana APRN, C.N.P. LAB BLOOD ADD-ON Performing Organization Address City/State/ZIP Code Phon e Number POWERCHART documented in this encounter Visit Diagnoses Not on filedocumented in this encounter
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
--- OUTSIDE RECORDS SUMMARY | 2022-01-21 23:28 | XMS_ITS | Encounter Summary ---
:1955 Author Organization [facility] Address [address] [place] [address] Care Team Providers Name Role Phone Unavailable Primary Care Provider Unavailable Encounter Details Date Type Department Care Team Description 01/14/2013 Hospital Encounter HX [facility] FAMILYPRA Kari Schmidt, SUBMARINE CABLE EQUIPMENT TECHNICIAN, C.N.P. [address] [place] [phone] (Wo rk) Social History Tobacco [...] Reading Time Taken Comments Blood Pressure 110/60 01/14/2013 4:31 PM INSPECTOR DIALS Pulse 64 01/14/2013 4:31 PM INSPECTOR DIALS Temperature - - Respiratory Rate 16 01/14/2013 4:31 PM INSPECTOR DIALS Oxygen Saturation - - Inhaled Oxygen Concentration - - Weight 75.7 kg (166 lb 14.2 oz) 01/14/2013 4:31 PM INSPECTOR DIALS Height - - Body Mass Index 30.95 10/16/2012 11:28 AM CDT documented in this encounter Medications [...] Progress Notes Tin Schmidt, SOHAN, C.N.P. - 01/14/2013 4:19 PM CST [id number] CHIEF COMPLAINT / REASON FOR VISIT 1. Headache with sinus congestion and dizziness. 2. History of rheumatoid arthritis with complaints of back pain. Althea is here with her son who is interpreting. She has had sinus congestion with postnasal drip for the past week. She complained of some headache and dizziness today. She denies fever. She has history of rheumatoid arthritis. She follows with Rheumatology at [facility]. She is due for CBC, AST and creatinine and results are faxed to Perry Hankins CNP at [facility]. She is complaining of back pain. She would like to go to physical therapy. I will provide her with a referral. MEDICATIONS See depart summary from today. ALLERGIES None. SYSTEMS REVIEW Positive for that mentioned in the history of present illness and noted in the past medical history in the EMR. All other systems were reviewed and were negative. PREVENTIVE: She was given a flu shot today. VITAL SIGNS See EMR. PHYSICAL EXAMINATION Well developed, well nourished female in no acute distress. SKIN: Warm and dry. TMs are clear. Nares congested with yellow mucus. Tenderness over the maxillary sinus. Throat clear. NECK: Supple. LUNGS: Clear to auscultation. HEART: Regular rate and rhythm. ABDOMEN: Soft, nontender. No hepatosplenomegaly. SPINE: Tenderness to palpation over the thoracic and lumbar spine. Deep tendon reflexes 2+ and symmetrical. Straight leg raising is negative bilaterally. IMPRESSION/REPORT/PLAN 1. Acute sinusitis. Amoxicillin 875 mg one 2 times a day for 10 days. Encourage fluids, Tylenol for fever and discomfort. 2. Rheumatoid arthritis. Will check CBC, AST and creatinine today. Results will be faxed to Perry Hankins in Rheumatology at [facility]. 3. Back pain. She was given referral to [facility]. She is also due for mammogram and orders are put in for her to schedule for that. Tin Schmidt CNP/harris Electronically Signed By: TIN SCHMIDT CNP On: 01/15/2013 06:42 PM Source: [facility] MHSDOLBEYNONRADSYS Document Id: [id number] [employer] documented in this encounter Miscellaneous Notes Miscellaneous - Tin Schmidt APRN, C.N.P. - 01/14/2013 4:44 PM CST Ambulatory Patient Summary [address] [id number] Visit Information Name: ALTHEA ARIAS [facility] Number: [id number] Current Date: 01/14/2013 16:44:41 Physicians Attending Provider: TIN SCHMIDT CNP Primary [...] medications. Medication/Strength Dose Route Frequency Indications/Special Instructions/Comments/Notes amoxicillin (amoxicillin 875 mg oral tablet) 875 mg Oral two times a day for 14 Days meclizine (meclizine 25 mg oral tablet) [...] appointment detail needed. Your Goals/Additional instructions: Source: [facility] POWERCHART Document Id: [id number] [employer] Miscellaneous - Tin Schmidt APRN, C.N.P. - 01/14/2013 4:44 PM CST Ambulatory Depart Summary [address] [id number] Visit Information Name: ALTHEA ARIAS [facility] Number: [id number] Visit Date: 01/14/2013 16:44:41 Attending Provider: TIN SCHMIDT CNP Primary Care [...] medications. Medication/Strength Dose Route Frequency Indications/Special Instructions/Comments/Notes amoxicillin (amoxicillin 875 mg oral tablet) 875 mg Oral two times a day for 14 Days meclizine (meclizine 25 mg oral tablet) [...] your provider for clarification. Additional Information: Source: [facility] POWERCHART Document Id: [id number] [employer] Miscellaneous - Masoud Lipscomb L.P.N. - 01/14/2013 4:31 PM CST Adult Self Rising Flour Mixer Intake/History Adult Self Rising Flour Mixer Intake/History Entered On: 01/14/2013 16:33 INSPECTOR DIALS Performed On: 01/14/2013 16:31 INSPECTOR DIALS by MASOUD LIPSCOMB Intake Chief Complaint : every night I feel pain and dizzy head is pain and body aches Temperature Core : 36 DegC(Converted to: 96.8 DegF) (LOW) Peripheral Pulse Rate : 64 /min Respiratory Rate : 16 /min Systolic Blood Pressure : 110 mmHg Diastolic Blood Pressure : 60 mmHg NIBP Mean : 77 mmHg BP Location : Left upper extremity Blood Pressure Cuff Size : Large Actual Weight : 75.7 kg(Converted to: 166 lb 14 oz) Weight Source : Standing scale Dosing Weight Clinic : 75.7 kg MASOUD LIPSCOMB - 01/14/2013 16:31 INSPECTOR DIALS General Info Information Given By : Patient, Son Languages : Ana MASOUD LIPSCOMB - 01/14/2013 16:31 INSPECTOR DIALS Subjective Pain Symptoms : Yes MASOUD LIPSCOMB - 01/14/2013 16:31 INSPECTOR DIALS Pain Pain Assessment Grid Pain 1 Location : Other: whole body Intensity : 7 MASOUD LIPSCOMB - 01/14/2013 16:31 INSPECTOR DIALS Dependent Habits Tobacco Use/Currently Using : No Tobacco Use/Last 12 months : No Smoking Status : Never smoker MASOUD LIPSCOMB - 01/14/2013 16:31 INSPECTOR DIALS Caffeine Use Grid Caffeine Use : Current Type : Coffee, Tea Frequency : Daily MASOUD LIPSCOMB - 01/14/2013 16:31 INSPECTOR DIALS Recreational Drug Use Grid Drug Use : None MASOUD LIPSCOMB - 01/14/2013 16:31 INSPECTOR DIALS Source: [facility] POWERCHART Document Id: [id number] INSPECTOR DIALS!36 [employer] documented in this encounter Plan of Treatment Upcoming Encounters Date Type Specialty Care Team Description 02/01/2022 Comprehensive Visit Family Medicine Tin Schmidt, Kuldpi PRN, C.N.P. [address] [place], [place] [phone] (Wo rk) documented as of this encounter Visit Diagnoses Not on filedocumented in this encounter
--- OUTSIDE RECORDS SUMMARY | 2022-01-21 23:28 | XMS_ITS | Encounter Summary ---
:1955 Author Organization [facility] Address [address] [place] [address] Care Team Providers Name Role Phone Unavailable Primary Care Provider Unavailable Encounter Details Date Type Department Care Team Description 08/11/2012 Hospital Encounter HX [facility] Cynthia Rockwell A PRN, C.N.P. [address] [place], [place] [phone] (Wo rk) Social History [...] Cynthia Rockwell A PRN, C.N.P. [address] [place], [place] [phone] (Wo rk) documented as of this encounter Procedures Procedure Name Priority Date/Time Associated Comments Diagnosis AUTOMATED Routine 08/11/2012 2:14 PM Results f or this DIFFERENTIAL, B CDT procedure ar e in the results section. SEDIMENTATION RATE, B Routine 08/11/2012 2:14 PM Results for this CDT procedure are i n the results section. CBC WITH DIFFERENTIAL, Routine 08/11/2012 2:14 PM Results for this B CDT procedure are i n the results section. C-REACTIVE PROTEIN Routine 08/11/2012 2:14 PM Res ults for this (CRP), S/P CDT procedure are i n the results section. documented in this encounter Results Automated Differential (08/11/2012 2:14 PM CDT) P athologist Signature Neutro % 53.3 34.0 - POWERCHART 71.1 Lymphocytes % 32.6 19.3 - POWERCHART 51.7 HX Boundary % 10.0 4.7 - 12.5 POWERCHART HX Eos % 3.8 0.7 - 5.8 POWERCHART HX Baso % 0.3 0.1 - 1.2 POWERCHART Absolute 2.08 1.70 - POWERCHART Neutrophils 7.00 109L Lymphocytes 1.27 0.90 - POWERCHART 2.90 X109L Monocytes 0.39 0.30 - POWERCHART 0.90 X109L Eosinophils 0.15 0.05 - POWERCHART 0.50 X109L Absolute 0.01 0.00 - POWERCHART Basophil 0.30 X109L Specimen Anatomical Collection Method Collection Time Receive d Time (Source) Location / / Volume Laterality Blood 08/11/2012 2:14 PM 201 3 2:14 CDT PM CDT Perry Arana APRN, C.N.P. LAB BLOOD ADD-ON Performing Organization Address City/[facility]/ZIP Code Phon e Number POWERCHART (ABNORMAL) Sedimentation Rate (08/11/2012 2:14 PM CDT) [facility] gist Method Time Signature Sedimentation 43 (H) 0 - 29 POWERCHART Rate, B MMHR Specimen (Source) Anatomical Collection Method Collection Time Re ceived Time Location / / Volume Laterality Blood 08/11/2012 2:14 PM CDT Perry Arana APRN, C.N.P. LAB BLOOD ADD-ON Performing Organization Address City/[facility] Code Phon e Number POWERCHART (ABNORMAL) CBC with Differential (08/11/2012 2:14 PM CDT) [facility] gist Method Time Signature Leukocytes 3.9 3.4 - 10.5 POWERCHART X109L Erythrocytes 4.07 3.90 - POWERCHART 5.03 [id number] Hemoglobin 11.9 (L) 12.0 - POWERCHART 15.5 GDL Hematocrit 36.1 34.9 - POWERCHART 44.5 MCV 88.7 82.0 - POWERCHART 98.0 FL Platelet Count 229 150 - 450 POWERCHART X109L HX RDW 14.1 11.9 - POWERCHART 15.5 HXDifferential? Auto POWERCHART Specimen (Source) Anatomical Collection Method Collection Time Re ceived Time Location / / Volume Laterality Blood 08/11/2012 2:14 PM CDT Perry Arana APRN, C.N.P. LAB BLOOD ADD-ON Performing Organization Address City/[facility] Code Phon e Number POWERCHART (ABNORMAL) CRP (C-Reactive Protein) (08/11/2012 2:14 PM CDT) P athologist Signature C-Reactive 23.6 (H) <=8.0 MGL POWERCHART Protein (CRP), S Comment: Test Performed by: [place] [address] [employer]xide Process Operator: Nathan almaguer III, M.D. Specimen (Source) Anatomical Collection Method Collection Time Re ceived Time Location / / Volume Laterality Blood 08/11/2012 2:14 PM CDT Perry Arana APRN C.N.P. LAB BLOOD ADD-ON Performing Organization Address City/State/ZIP Code Phon e Number POWERCHART documented in this encounter Visit Diagnoses Not on filedocumented in this encounter
--- OUTSIDE RECORDS SUMMARY | 2022-01-21 23:28 | XMS_ITS | Encounter Summary ---
:1955 Author Organization [facility] Address [address] [place] [address] Care Team Providers Name Role Phone Unavailable Primary Care Provider Unavailable Encounter Details Date Type Department Care Team Description 09/16/2012 Hospital Encounter HX [facility] Kari Schmidt, SOCIAL SCIENCE INSTRUCTOR, C.N.P. [address] [place] [phone] (Wo rk) Social History Tobacco [...] Sign Reading Time Taken Comments Blood Pressure 90/66 09/16/2012 10:41 AM CDT Pulse 60 09/16/2012 10:41 AM CDT Temperature - - Respiratory Rate 16 09/16/2012 10:41 AM CDT Oxygen Saturation - - Inhaled Oxygen Concentration - - Weight 75.4 kg (166 lb 3.6 oz) 09/16/2012 10:41 AM CDT Height 157 cm (5' 1.81) 09/16/2012 10:41 AM CDT Body Mass Index 30.59 09/16/2012 10:41 AM CDT documented in this encounter [...] Progress Notes Tin Schmidt, SOHAN, C.N.P. - 09/16/2012 10:28 AM CDT [id number] CHIEF COMPLAINT/REASON FOR VISIT Rheumatoid arthritis. HISTORY OF PRESENT ILLNESS Althea is here with Kirby who is interpreting. She has a history of rheumatoid arthritis. She was scheduled for followup in rheumatology at [facility] on July 02. She did not keep that appointment. Sheis now rescheduled for October 01. Today she is here wondering if I can get her in sooner. I have explained to her that their schedules fill up and that perhaps if there was a cancellation she could getin sooner but she has to have a ride lined up through [employer] so that really is not going to be an option. She brought in her medications with her today but she does not have containers for her methotrexate, prednisone or Arava. She says she does have some other pill bottles at home but a lot of them are empty. She is going to need to be reestablished on her medications at her next appointment. 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 She did see Neptali on 08/11/2012 after a fall and he did check some labs, although she is probably due for AST and creatinine yet so I will get those on her today. CURRENT MEDICATIONS See depart summary from today. ALLERGIES None. SYSTEMS REVIEW Positive for that mentioned in the history of present illness and noted in the past medical history in the EMR. All other systems were reviewed and were negative. PREVENTIVE Due for colon screening. She was given a FIT card to take home today with instructions. VITAL SIGNS See EMR. PHYSICAL EXAMINATION GENERAL: Well developed well nourished female in no acute distress. SKIN: Warm and dry. HEART: Regular rate and rhythm. LUNGS: Clear to auscultation. JOINTS: She has some joint tenderness and stiffness in her hands and knees. EXTREMITIES: No lower extremity edema. IMPRESSION/REPORT/PLAN Rheumatoid arthritis. Followup scheduled with rheumatology at [facility] on October 01. She states she does have a ride set up through [employer] and will keep this appointment. She will mail back her FIT card and return in October for a mammogram. We will check creatinine and AST today. Tin Schmidt CNP/alex Electronically Signed By: TIN SCHMIDT CNP On: 09/17/2012 10:30 AM Source: [facility] MHSDOLBEYNONRADSYS Document Id: [id number] documented in this encounter Miscellaneous Notes Miscellaneous - Tin Schmidt APRN, C.N.P. - 09/16/2012 10:57 AM CDT Ambulatory Patient Summary [address] [address] Visit Information Name: ALTHEA ARIAS [facility] Number: [id number] Current Date: 09/16/2012 10:57:58 Physicians Attending Provider: TIN SCHMIDT CNP Primary Care Provider: TIN SCHMIDT CNP Your Medications Here is a list of [...] 150 mg Oral two times a day *calcium-vitamin D (Calcium 600+D) 1 tab Oral two times a day methotrexate (methotrexate 2.5 mg oral tablet) 12.5 mg Oral every week on Saturday night * You have let us know that you are not taking this medication as listed. Please talk with your primary care provider or the health care provider who prescribed the medication as soon as possible. Attention: If you have any medications at [...] Upcoming Appointments Date Time Location Reason Provider 09/29/2012 13:20 [facility] Ophth eye exam/Olad to intertpret- KT Submitted Juan Ramon Ivy MD Your Goals/Additional instructions: Source: [facility] POWERCHART Document Id: [id number] Miscellaneous - Tin Schmidt APRN, C.N.P. - 09/16/2012 10:57 AM CDT Ambulatory Depart Summary [address] [place] [address] Visit Information Name: ALTHEA ARIAS [facility] Number: [id number] Visit Date: 09/16/2012 10:57:57 Attending Provider: TIN SCHMIDT CNP Primary Care [...] 150 mg Oral two times a day *calcium-vitamin D (Calcium 600+D) 1 tab Oral two times a day methotrexate (methotrexate 2.5 mg oral tablet) 12.5 mg Oral every week on Saturday night * You have let us know that you are not taking this medication as listed. Please talk with your primary care provider or the health care provider who prescribed the medication as soon as possible. Attention: If you have any medications at home that are not on this list, DO NOT take them until youcontact your provider for clarification. Additional Information: Source: [facility] POWERCHART Document Id: [id number] Miscellaneous - Kari Mcnally L.P.N. - 09/16/2012 10:44 AM CDT Health Assessment Health Assessment Entered On: 09/16/2012 10:45 CDT Performed On: 09/16/2012 10:44 CDT by KARI MCNALLY Health Assessment Complete Health Assessment Complete or Modified : Annual Health Assessment Annual Health Assessment Completed : Yes KARI MCNALLY - 09/16/2012 10:44 CDT Nutrition Nutrition Risk Factors by History Adult : None KARI MCNALLY - 09/16/2012 10:44 CDT Functional Current Daily Living Assistance : Transportation KARI MCNALLY - 09/16/2012 10:44 CDT Dependent Habits Tobacco Use/Currently Using : No Smoking Status : Never smoker KARI MCNALLY - 09/16/2012 10:44 CDT Caffeine Use Grid Caffeine Use : Current Type : Coffee, Tea Frequency : Daily KARI MCNALLY - 09/16/2012 10:44 CDT Recreational Drug Use Grid Drug Use : None KARI MCNALLY - 09/16/2012 10:44 CDT Psychosocial Domestic Abuse Concerns : None KARI MCNALLY - 09/16/2012 10:44 CDT Advance Directive Advanced Directives : No KARI MCNALLY - 09/16/2012 10:44 CDT Educ Needs Learning Style Preference Adult Grid Patient : Verbal explanation Family : Verbal explanation KARI MCNALLY - 09/16/2012 10:44 CDT Source: [facility] POWERCHART Document Id: [id number] CDT!27 Miscellaneous - Kari Mcnally L.PAviva - 09/16/2012 10:41 AM CDT Adult Resistor Testing Machine Operator Intake/History Adult Resistor Testing Machine Operator Intake/History Entered On: 09/16/2012 10:44 CDT Performed On: 09/16/2012 10:41 CDT by KARI MCNALLY Intake Chief Complaint : Needs something to help her until she can get to [facility]. Temperature Core : 37.0 DegC(Converted to: 98.6 DegF) Peripheral Pulse Rate : 60 /min Respiratory Rate : 16 /min Systolic Blood Pressure : 90 mmHg (LOW) Diastolic Blood Pressure : 66 mmHg NIBP Mean : 74 mmHg Height : 157 cm(Converted to: 5 ft 2 inch(es), 61.81 inch(es)) Actual Weight : 75.4 kg(Converted to: 166 lb 4 oz) Dosing Weight Clinic : 75.4 kg Clinic BSA : 1.81 Body Mass Index : 30.59 kg/m2 KARI MCNALLY - 09/16/2012 10:41 CDT General Info Information Given By : Patient Languages : [place] KARI MCNALLY - 09/16/2012 10:41 CDT Subjective Pain Symptoms : Yes KARI MCNALLY - 09/16/2012 10:41 CDT Pain Pain Assessment Grid Pain 1 Location : Generalized KARI MCNALLY - 09/16/2012 10:41 CDT Dependent Habits Tobacco Use/Currently Using : No Smoking Status : Never smoker KARI MCNALLY - 09/16/2012 10:41 CDT Caffeine Use Grid Caffeine Use : Current Type : Coffee, Tea Frequency : Daily KARI MCNALLY - 09/16/2012 10:41 CDT Recreational Drug Use Grid Drug Use : None KARI MCNALLY - 09/16/2012 10:41 CDT Source: [employer] Document Id: [id number] CDT!34 documented in this encounter Plan of Treatment Upcoming Encounters Date Type Specialty Care Team Description 02/01/2022 Comprehensive Visit Family Medicine Tin Schmidt A PRN, C.N.P. [address] [phone] (Wo rk) documented as of this encounter Procedures Procedure Name Priority Date/Time Associated Comments Diagnosis ASPARTATE Routine 09/16/2012 11:08 Results for this AMINOTRANSFERASE (AST), AM CDT proc edure are in S/P the results section. CREATININE WITH EGFR, Routine 09/16/2012 11:08 Re sults for this S/P AM CDT procedure are i n the results section. documented in this encounter Results AST (Aspartate Aminotransferase) (09/16/2012 11:08 AM CDT) [facility] gist Method Time Signature Aspartate 25 8 - 43 POWERCHART Aminotransferase UNITL (AST), S Specimen (Source) Anatomical Collection Method Collection Time Re ceived Time Location / / Volume Laterality Blood 09/16/2012 11:08 AM CDT Tin Schmidt APRN, C.N.P. LAB BLOOD ADD-ON Performing Organization Address City/State/ZIP Code Phon e Number POWERCHART Creatinine with eGFR (09/16/2012 11:08 AM CDT) P athologist Signature Creatinine 0.7 0.7 - 1.2 POWERCHART MGDL HXeGFR (MDRD) >60 MLMIN POWERCHART eGFR >60 MLMIN POWERCHART Black/ Specimen (Source) Anatomical Collection Method Collection Time Re ceived Time Location / / Volume Laterality Blood 09/16/2012 11:08 AM CDT Tin Schmidt APRN, C.N.P. LAB BLOOD ADD-ON Performing Organization Address City/State/ZIP Code Phon e Number POWERCHART documented in this encounter Visit Diagnoses Not on filedocumented in this encounter
--- OUTSIDE RECORDS SUMMARY | 2022-01-21 23:28 | XMS_ITS | Encounter Summary ---
:1955 Author Organization [facility] Address [address] [place] [address] Care Team Providers Name Role Phone Unavailable Primary Care Provider Unavailable Encounter Details Date Type Department Care Team Description 10/14/2013 Hospital Encounter HX [facility] Kari Schmidt, IT DESKTOP SUPPORT SPECIALIST, C.N.P. [address] [place] [address] (Wo rk) Social History Tobacco [...] Reading Time Taken Comments Blood Pressure 110/60 10/14/2013 10:44 AM CDT Pulse 60 10/14/2013 10:44 AM CDT Temperature - - Respiratory Rate 16 10/14/2013 10:44 AM CDT Oxygen Saturation - - Inhaled Oxygen Concentration - - Weight 74 kg (163 lb 2.3 oz) 10/14/2013 10:44 AM CDT Height 158 cm (5' 2.21) 10/14/2013 10:44 AM CDT Body Mass Index 29.64 10/14/2013 10:44 AM CDT documented in this encounter Medications [...] Progress Notes Tin Schmidt, SOHAN, C.N.P. - 10/14/2013 10:36 AM CDT [id number] CHIEF COMPLAINT/REASON FOR VISIT Rheumatoid arthritis. HISTORY OF PRESENT ILLNESS Althea was being seen with the assistance of LOVE rasheed. Her son is also here and she speaks Chinese. She has history of rheumatoid arthritis. She follows with [facility] every 4 months. She has labs drawn here every 3 months and they are faxed down to Rheumatology. She states she is having low back pain and is wondering if she could do physical therapy and I think that would be helpful. She also would like a letter to obtain citizenship stating that she does not read or write Chinese and that she because of her rheumatoid arthritis is unable to work. 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 MEDICATIONS See depart summary from today. ALLERGIES None. SYSTEMS REVIEW Positive for that mentioned in the history of present illness and noted in the past medical history in the EMR. All other systems were reviewed and were negative. PREVENTIVE She will do FIT test for colon screening. PAST MEDICAL/SURGICAL HISTORY VITAL SIGNS: See EMR. GENERAL: Well-developed, well-nourished female, in no acute distress. SKIN: Warm and dry. HEART: Regular rate and rhythm. LUNGS: Clear to auscultation. ABDOMEN: Soft, nontender. No hepatosplenomegaly. EXTREMITIES: Warm dry no peripheral edema. SPINE: Limited range of motion of the thoracic and lumbar spine. Tenderness to palpation over the lumbosacral paraspinal musculature. IMPRESSION/REPORT/PLAN Rheumatoid arthritis. 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 She will continue following with [facility] every 4 months and get her labs done here every 3 months. Next labs are due in December and she should see Rheumatology again in January. She was given referral to [facility]. Total time spent with the patient 30 minutes, 22 minutes of it counseling and coordinating care. Tin Schmidt CNP/viet Electronically Signed By: TIN SCHMIDT CNP On: 10/14/2013 01:36 PM Source: [facility] MHSDOLBEYNONRADSYS Document Id: [id number] documented in this encounter Nursing Notes Hank James L.P.N. - 11/12/2013 1:38 PM CDT Colorectal cancer screening reminder Attempted to call patient through [employer] in regards to patient returning the FIT testgiven to him on 10/14/13 by Queenie. Unable to leave message . Electronically Signed By: HANK JAMES LPN On: 11/12/2013 01:40 PM Source: [facility] POWERCHART Document Id: [id number] Tin Schmidt APRN, C.N.P. - 10/14/2013 11:03 AM CDT Ambulatory Patient Education The following [...] i nformation, contact the [employer] at [phone]. If Surgery Is Needed For people with severe joint damage, surgery can help decrease pain and make it easier to use a joint. Joint replacement, usually of the hip or knee, is one of the most common surgeries for this condition. Other types of surgery may be done to help control problems in the hands or feet. ?? [id number] [facility], [address] [place] [address]. All rights reserved. This information is not intended as a substitute for professional medical care. Always follow your healthcare professional's instructions. This document has images extracted. Please consider using [employer] for all your patient education needs. Source: [facility] POWERCHART Document Id: [id number] documented in this encounter Miscellaneous Notes Miscellaneous - Tin Schmidt APRN, C.N.P. - 10/14/2013 11:07 AM CDT Custom Result Letter 14 October 2013 ALTHEA ARIAS [address] [facility] [id number] Dear ALTHEA ARIAS, To whom it may concern: Althea Arias is applying for citizenship. She does not read or write Chinese. She has history of Rheumatoid Arthritis. 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 She is not able to work. If you have any questions, please feel free to call me. Sincerely, Tin Schmidt CNP Sincerely, TIN SCHMIDT [address] [place] [address] Electronic Signature Electronically Signed By: TIN SCHMIDT CNP On: 14 October 2013 This document has images extracted. Source: [facility] [employer] Document Id: [id number] Electronically signed by Zaheer [facility] Environmental [employer] Representative [id number] at 07/31/2016 12:52 PM CDT Miscellaneous - Tin Schmidt APRN, C.N.P. - 10/14/2013 11:04 AM CDT Ambulatory Patient Summary [address] [facility] [place] [id number] Visit Information Name: ALTHEA ARIAS [facility] Number: [id number] Current Date: 10/14/2013 11:04:23 Physicians Attending Provider: TIN SCHMIDT CNP Primary [...] the Following Medications: Medication list as of 10-14-13 11:04 Attention: If you have any medications at [...] Electronically Signed By: TIN SCHMIDT CNP Signed On:14-OCT-2013 11:02:04 Your Allergies & Intolerances Substance Reaction Symptoms Category Comments No Known Allergies Drug Your Problem List Problem Status Onset Comments Constipation, Unspecified Active Osteopenia Active Arthritis, degenerative, lower leg/knee Active Arthritis Rheumatoid Active 06/03/2009 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 If Surgery Is Needed For people with severe joint damage, surgery can help decrease pain and make it easier to use a joint. Joint replacement, usually of the hip or knee, is one of the most common surgeries for this condition. Other types of surgery may be done to help control problems in the hands or feet. ?? [id number] [facility], [address] [place] [address]. All rights reserved. This information is not intended as a substitute for professional medical care. Always follow your healthcare professional's instructions. Your Goals/Additional instructions: This document has images extracted. Please consider using [employer] for all your patient education needs. Source: [facility] POWERCHART Document Id: [id number] Miscellaneous - Tin Schmidt APRN, C.N.P. - 10/14/2013 11:04 AM CDT Ambulatory Discharge Medication List [address] [place] [id number] Visit Information Name: ALTHEA ARIAS [facility] Number: [id number] Visit Date: 10/14/2013 11:04:22 Attending Provider: TIN SCHMIDT CNP Primary Care [...] the Following Medications: Medication list as of 10-14-13 11:04 Attention: If you have any medications at [...] Electronically Signed By: TIN SCHMIDT CNP Signed On:14-OCT-2013 11:02:04 Additional Information: Source: [facility] POWERCHART Document Id: [id number] Miscellaneous - Gunjan Meza L.P.N. - 10/14/2013 10:44 AM CDT Adult Medical Assistant Dermatology Intake/History Adult Medical Assistant Dermatology Intake/History Entered On: 10/14/2013 10:48 CDT Performed On: 10/14/2013 10:44 CDT by GUNJAN MEZA LPN Intake Chief Complaint : Have fever. Has arthrititis and it brings fever at night. Temperature Core : 36.2 DegC(Converted to: 97.2 [...] 2 inch(es), 62 inch(es)) Actual Weight : 74 kg(Converted to: 163 lb 2 oz) Weight Source : Standing scale Dosing Weight Clinic : 74 kg Clinic BSA : 1.8 Body Mass Index : 29.64 kg/m2 GUNJAN MEZA LPN - 10/14/2013 10:44 CDT General Info Information Given By : Patient, Other: Martti Languages : Croatian Is Patient Female and 13-50 no hysterectomy : No GUNJAN MEZA LPN - 10/14/2013 10:44 CDT Subjective Pain Symptoms : No GUNJAN MEZA LPN - 10/14/2013 10:44 CDT Dependent Habits Tobacco Use/Currently Using : No Exposure to Tobacco Smoke : Other: never Smoking Status : Never smoker GUNJAN MEZA LPN - 10/14/2013 10:44 CDT Caffeine Use Grid Caffeine Use : Current Type : Coffee, Tea Frequency : Daily GUNJAN MEZA RAGHAV - 10/14/2013 10:44 CDT Recreational Drug Use Grid Drug Use : None GUNJAN MEZA RAGHAV - 10/14/2013 10:44 CDT Source: [facility] [employer] Document Id: [id number] CDT!36 documented in this encounter Plan of Treatment Upcoming Encounters Date Type Specialty Care Team Description 02/01/2022 Comprehensive Visit Family Medicine Tin Schmidt, Kuldip MENDOZAN, C.N.P. [address] [phone] (Wo rk) documented as of this encounter Visit Diagnoses Not on filedocumented in this encounter
--- OUTSIDE RECORDS SUMMARY | 2022-01-21 23:29 | XMS_ITS | Encounter Summary ---
:1955 Author Organization [facility] Address [address] [place] [address] Care Team Providers Name Role Phone Unavailable Primary Care Provider Unavailable Encounter Details Date Type Department Care Team Description 07/18/2009 Hospital Encounter [facility] Cynthia Rockwell A PRN, C.N.P. [address] [place], [place] [phone] (Wo rk) Social History [...] Sig Dispensed Refills Start Date End Date methotrexate 2.5 mg Take 8 tablets by 0 0 11/14/2017 tablet mouth once a week. documented as of this encounter Plan of Treatment Upcoming Encounters Date Type Specialty Care Team Description 02/01/2022 Comprehensive Visit Family Medicine Cynthia Rockwell A PRN, C.N.P. [address] [place], [place] [phone] (Wo rk) documented as of this encounter Visit Diagnoses Not on filedocumented in this encounter
--- OUTSIDE RECORDS SUMMARY | 2022-01-21 23:29 | XMS_ITS | Encounter Summary ---
:1955 Author Organization [facility] Address [address] [place] [address] Care Team Providers Name Role Phone Unavailable Primary Care Provider Unavailable Encounter Details Date Type Department Care Team Description 08/18/2009 Hospital Encounter [facility]X [facility] FAMILYPRA Kari Schmidt, SHIPPING AND RECEIVING MATERIAL HANDLER, C.N.P. [address] [place] [address] (Wo rk) Social History Tobacco [...] a week. documented as of this encounter Progress Notes Tin Schmidt, SHIPPING AND RECEIVING MATERIAL HANDLER, C.N.P. - 08/18/2009 12:00 AM CDT [id number] IMPRESSION/REPORT/PLAN 1. Rheumatoid arthritis following at [facility] currently on Methotrexate. 2. Anemia. Rechecked CBC today, hemoglobin back up to 12.8. She will keep follow up rheumatology appointment at [facility] on 08-25-09. I have requested through the rheumatology nurse that she be scheduled for screening colonoscopy with female provider. CHIEF COMPLAINT/REASON FOR VISIT 1. Rheumatoid arthritis 2. Anemia HISTORY OF PRESENT ILLNESS 1. Althea is here with Marly who is interpreting. She is being seen at [facility] for rheumatoid arthritis. She was started on Methotrexate. She was supposed to come here for laboratory work. She was in for CBC on 08-10. Her hemoglobin was low at 9.4. On 07-18 it was 13.6. The rheumatology nurse called Althea and Althea told her she was not taking her Methotrexate so the rheumatology nurse asked us to address this issue further. Althea came in today with educational sign language interpreter and it turns out that when she had her blood work done on 08-10 with the low hemoglobin of 9.4 she in fact was taking the Methotrexate but then finished it and didn't know she was supposed to refill it and so when she was called by rheumatology nurse she told her then at that time she was not taking it. I did repeat her CBC today and her hemoglobin is back up to 12.8. She does have follow up with rheumatology at [facility] on 08-25-09. I did tell her to refill her Methotrexate. 2. She does need screening colonoscopy and she does not want to have a male physician. I explained to her that we only have male physicians that do colonoscopy through our clinic so I did speak to another rheumatology nurse at [facility] today and asked if female provider could be facilitated down there. CURRENT MEDICATIONS Post-visit medication reconciliation 1. Hydroxychloroquine 200 mg 1 daily 2. Folic acid 1 mg 1 daily 3. Methotrexate 2.5 mg 4 tablets weekly Medication list reviewed. Updated list given to patient at discharge. ALLERGIES None PREVENTIVE SERVICES Colonoscopy: due Pap smear: due Lipid profile: due fasting VITAL SIGNS DATE/TIME 08-18-09 WEIGHT 77.5 kg TEMPERATURE 36.5 degreesC PULSE 64 SYSTOLIC 80 DIASTOLIC 60 PHYSICAL EXAM AREA EXAM TEXT GENERAL Well developed well nourished female in no acute distress. SKIN Warm and dry. No rashes. HEAD HEENT unremarkable. LYMPH NODES No lymphadenopathy. THYROID No thyromegaly. HEART Heart regular rate and rhythm S1 S2 no murmur. LUNGS Lungs clear to auscultation no wheezes or rales. ABDOMEN Abdomen soft, nontender, no hepatosplenomegaly. EXTREMITIES Extremities warm, dry, no peripheral edema. NEURO Deep tendon reflexes 2+ and symmetrical. SJM/clf Signed Tin Taylor. Moiz, MSN, INVENTORY ASSISTANT, CDE Family Nurse Practitioner Electronically Signed By:TIN SCHMIDT CNP On 08/23/2009 01:10 PM Source: [facility] MHSDOLBEYNONRADSYS Document Id: [id number] documented in this encounter Miscellaneous Notes Miscellaneous - Tin Schmidt APRN, C.N.P. - 08/18/2009 4:13 PM CDT [place] [address] Visit Information Name: ALTHEA ARIAS Current Date: 08/18/2009 16:13:06 Primary Care Provider: TIN SCHMIDT CNP [id number] ARIASALTHEA has been given the following list of medications: Your Medications It is important to take your medications as directed. Use a pill box or chart to help remind you to take your medications. Please let your doctor or nurse know if you have problems taking your medications. Medication/Strength Dose Route Frequency Indications/Special Instructions/Comments hydroxychloroquine (hydroxychloroquine 200 mg oral tablet) 200 mg Oral once a day folic acid (folic acid 1 mg oral tablet) 1 tab(s) Oral once a day methotrexate (methotrexate 2.5 mg oral tablet) 10 mg Oral every week Additional Information: Yes - Current list of reconciled medications is provided and explained to the patient and/or family, guardian/caregiver. Source: [facility] POWERCHART Document Id: [id number] Miscellaneous - Conversion, Historical Provider Ser - 08/18/2009 3:36 PM CDT Adult Office Lead Intake/History Adult Office Lead Intake/History Entered On: 08/18/2009 15:37 CDT Performed On: 08/18/2009 15:36 CDT by CARLOS PERSAUD LPN Intake Chief Complaint: recheck regarding lab tests Temperature Core: 36.5DegC(Converted to: 97.7DegF) Peripheral Pulse Rate: 64bpm Systolic Blood Pressure: 80mmHg (<LLOW) Diastolic Blood Pressure: 60mmHg NIBP Mean: 67mmHg BP Location: Right upper extremity Actual Weight: 77.500kg(Converted to: 170.858lb) Dosing Weight Clinic: 77.50kg CARLOS PERSAUD LPN - 08/18/2009 15:36 CDT Subjective Pain Symptoms: No CARLOS PERSAUD LPN - 08/18/2009 15:36 CDT Dependent Habits Tobacco Use/Currently Using: No Alcohol Use: No CARLOS PERSAUD LPN - 08/18/2009 15:36 CDT Caffeine Use Grid Caffeine Use: Current Type: Coffee, Tea Frequency: Daily CARLOS PERSAUD LPN - 08/18/2009 15:36 CDT Recreational Drug Use Grid Drug Use: None CARLOS PERSAUD LPN - 08/18/2009 15:36 CDT Allergies Allergies (Active) NKA Estimated Onset Date: Unspecified ; Created By: TIN SCHMIDT CNP; Reaction Status: Active ; Category: Drug ; Substance: NKA ; Type: Allergy ; Updated By: TIN SCHMIDT CNP; Reviewed Date: 05/15/2009 16:34 CDT Source: [facility] [employer] Document Id: [id number] CDT!24 documented in this encounter Plan of Treatment Upcoming Encounters Date Type Specialty Care Team Description 02/01/2022 Comprehensive Visit Family Medicine Tin Schmidt A PRN, C.N.P. [address] [phone] (Wo rk) documented as of this encounter Visit Diagnoses Not on filedocumented in this encounter
--- OUTSIDE RECORDS SUMMARY | 2022-01-21 23:29 | XMS_ITS | Encounter Summary ---
:1955 Author Organization [facility] Address [address] [place] [address] Care Team Providers Name Role Phone Unavailable Primary Care Provider Unavailable Encounter Details Date Type Department Care Team Description 08/28/2010 Hospital Encounter HX [facility] FBHB Cynthia Rodriguez, CHIPPER FEEDER, C.N.P. [address] [place], [place] [phone] (Wo rk) Social History [...] 1 to 4 times per year 09/01 rastafari services? Do you belong to any clubs [...] Medicine Cynthia Rockwell A PRN, C.N.P. [address] [place] [phone] (Wo rk) documented as of this encounter Procedures Procedure Name Priority Date/Time Associated Diagnosis Comme nts BI BREAST SCREENING Routine 08/28/2010 11:17 AM R esults for this BILATERAL CDT procedure are i n the results section. documented in this encounter Results BI Breast Screening Bilateral (08/28/2010 11:17 AM CDT) Anatomical Region Laterality Modality Breast Bilateral Mammography Specimen (Source) Anatomical Collection Method Collection Time Re ceived Time Location / / Volume Laterality 08/28/2010 11:17 AM CDT Impressions 08/28/2010 3:02 PM CDT Stable negative mammogram, BIRADS 1. ?? Yearly mammograms are recommended. ? MAMMOGRAPHY - GENERAL OBSERVATIONS: The reported false negative rate for mammography is 15-20%. It cannot be used, therefore, to replace the regular physical examination. A norm al or noncontributory mammogram report also should not deter t he aggressive further workup of any suspected palpable masses. Narrative 08/28/2010 3:02 PM CDT HISTORY: Screening mammogram. ?? Technique: Bilateral digital mammograms were obtained in the CC and MLO projections. ?? COMPARISON: 07/18/2009 and prior. ?? FINDINGS: There has been no significant interval change. Mild vascular (not breast parenchymal) calcifications. The breast parenchymal pattern is fatty-replaced. There is no m ammographic evidence of a new dominant spiculated mass, clustered pleo morphic microcalcifications, or architectural distortion. No new skin thickening or nipple retraction. No other definite concerning findings. ?? CAD was utilized. ?? Procedure Note Shukri Wang M.D. / Provider, Israel urias M.D. - 07/25/2016 HISTORY: Screening mammogram. Technique: Bilateral digital mammograms were obtained in the CC and MLO projections. COMPARISON: 07/18/2009 and prior. FINDINGS: There has been no significant interval change. Mild vascular (not breast parenchymal) calcifications. The breast parenchymal pattern is fatty-replaced. There is no m ammographic evidence of a new dominant spiculated mass, clustered pleo morphic microcalcifications, or architectural distortion. No new skin thickening or nipple retraction. No other definite concerning findings. CAD was utilized. IMPRESSION: Stable negative mammogram, B IRADS 1. Yearly mammograms are recommended. MAMMOGRAPHY - GENERAL OBSERVATIONS: The reported false negative rate for mammography is 15-20%. It cannot be used, therefore, to replace the regular physical examination. A norm al or noncontributory mammogram report also should not deter t he aggressive further workup of any suspected palpable masses. Macie Sharp R.T.(R), R.T.(R)(M) IMG BI PROCEDU RES documented in this encounter Visit Diagnoses Not on filedocumented in this encounter
--- OUTSIDE RECORDS SUMMARY | 2022-01-21 23:29 | XMS_ITS | Encounter Summary ---
:1955 Author Organization [facility] Address [address] [place] [address] Care Team Providers Name Role Phone Unavailable Primary Care Provider Unavailable Encounter Details Date Type Department Care Team Description 03/01/2010 Hospital Encounter HX [facility] FBHB LAB Cynthia Rockwell A PRN, C.N.P. [address] [place], [place] [phone] (Wo rk) Social History [...] or relatives? How often do you attend restorationist or 1 to 4 times per year 09/01 anglican services? Do you belong to any clubs or No 09/18/2018 organizations such as restorationist groups, unions, fraternal or athletic groups, or [...] Medicine Cynthia Rockwell A PRN, C.N.P. [address] [place], [place] [phone] (Wo rk) documented as of this encounter Visit Diagnoses Not on filedocumented in this encounter
--- OUTSIDE RECORDS SUMMARY | 2022-01-21 23:29 | XMS_ITS | Encounter Summary ---
:1955 Author Organization [facility] Address [address] [place] [address] Care Team Providers Name Role Phone Unavailable Primary Care Provider Unavailable Encounter Details Date Type Department Care Team Description 01/19/2011 Hospital Encounter HX [facility] FBHB LAB Cynthia Rockwell A PRN, C.N.P. [address] [place], [place] [phone] (Wo rk) Social History [...] Medicine Cynthia Rockwell A PRN, C.N.P. [address] [place], [place] [phone] (Wo rk) documented as of this encounter Visit Diagnoses Not on filedocumented in this encounter
--- OUTSIDE RECORDS SUMMARY | 2022-01-21 23:29 | XMS_ITS | Encounter Summary ---
:1955 Author Organization [facility] Address [address] [place] [address] Care Team Providers Name Role Phone Unavailable Primary Care Provider Unavailable Encounter Details Date Type Department Care Team Description 10/06/2010 Hospital Encounter [facility]X [facility] CV-Celio Murphy Jr., M.D. [address] [place] [phone] (Wo rk) Social History Tobacco [...] Comprehensive Visit Family Medicine Cynthia Rockwell A PRN CSheltonN.P. [address] [place], [place] [phone] (Wo rk) documented as of this encounter Visit Diagnoses Not on filedocumented in this encounter
--- OUTSIDE RECORDS SUMMARY | 2022-01-21 23:29 | XMS_ITS | Encounter Summary ---
:1955 Author Organization [facility] Address [address] [place] [address] Care Team Providers Name Role Phone Unavailable Primary Care Provider Unavailable Encounter Details Date Type Department Care Team Description 09/26/[address] [facility] FBHB LAB Cynthia Rockwell A PRN, C.N.P. [address] [place], [place] [phone] (Wo rk) Social History [...] Medicine Cynthia Rockwell A PRN, C.N.P. [address] [place], [place] [phone] (Wo rk) documented as of this encounter Visit Diagnoses Not on filedocumented in this encounter
--- OUTSIDE RECORDS SUMMARY | 2022-01-21 23:29 | XMS_ITS | Encounter Summary ---
:1955 Author Organization [facility] Address [address] [place] [address] Care Team Providers Name Role Phone Unavailable Primary Care Provider Unavailable Encounter Details Date Type Department Care Team Description 10/06/2010 Hospital Encounter [facility]X [facility] Celio Ivy Jr., M.D. [address] [place] [address] (Wo rk) Social History Tobacco [...] Medicine Cynthia Rockwell A PRN, C.N.P. [address] [place], [place] [phone] (Wo rk) documented as of this encounter Visit Diagnoses Not on filedocumented in this encounter
--- OUTSIDE RECORDS SUMMARY | 2022-01-21 23:29 | XMS_ITS | Encounter Summary ---
:1955 Author Organization [facility] Address [address] [place] [address] Care Team Providers Name Role Phone Unavailable Primary Care Provider Unavailable Encounter Details Date Type Department Care Team Description 11/20/2010 Hospital Encounter [facility]X [facility] FAMILYPRA Kari Schmidt, FLY SETTER, C.N.P. [address] [place] [phone] (Wo rk) Social History Tobacco [...] of this encounter Progress Notes Tin Schmidt, FLY SETTER, C.N.P. - 11/20/2010 12:00 AM CDT [id number] CHIEF COMPLAINT/ REASON FOR VISIT 1. Sinus congestion 2. Rheumatoid arthritis. HISTORY OF PRESENT ILLNESS 1. Althea is here with Marly who is interpreting. She states she has had sinus congestion with postnasal drip and cough for the past week she thinks she has had low grade fever. 2. She has a history of rheumatoid arthritis. She is supposed to have CBC, AST, albumin checked every 8 weeks. We get that done today and faxed to [place] she has appointment scheduled in December. She has a lot of body aches and is wondering if she can go to physical therapy at [facility] in [facility]. CURRENT MEDICATIONS See depart summary from today ALLERGIES None PREVENTIVE: Due for Pap smear refuses. She was given a flu shot today. VITAL SIGNS See EMR PHYSICAL EXAM Well developed, obese female in no acute distress. SKIN: Warm and dry. TMs are dull. Nares congested with yellow mucus. Tenderness over maxillary sinus. Throat clear. Mild anterior cervical lymphadenopathy. HEART: Regular rate and rhythm. LUNGS: Clear to auscultation. ABDOMEN: Soft, nontender, no hepatosplenomegaly. Shoulders normal range of motion with discomfort with external rotation and some tenderness in the subscapularis region. IMPRESSION/REPORT/PLAN 1. Acute sinusitis. Amoxicillin 500 milligrams two twice daily for 10 days encourage fluids, Tylenol for fever discomfort. She was given a flu shot today. 2. Rheumatoid arthritis. Will check CBC, AST and albumin and fax results to Perry Arana CNP at [facility]. Phone number [phone]. Althea will keep her follow-up appointment with rheumatology at [facility] in December. She was given referral to [facility] for her shoulder joint pain and will recheck if symptoms do not improve. KYA/andrea Signed Tin Schmidt, MSN, RELIEF CHARGE NURSE, CDE Family Nurse Practitioner Electronically Signed By: TIN SCHMIDT CNP On: 11/21/2010 04:07 PM Source: [facility] MHSDOLBEYNONRADSYS Document Id: [id number] documented in this encounter Miscellaneous Notes Miscellaneous - Tin Schmidt, SOHAN, C.N.P. - 11/20/2010 4:49 PM CDT Ambulatory Patient Summary [place] [address] [place] [address] Visit Information Name: ALTHEA ARIAS Current Date: 11/20/2010 16:49:45 Primary Care Provider: TIN SCHMIDT [facility] Your Medications Here is a list of your medications. It is important to take your medications as directed. Use a pillbox or chart to help remind you to take your medications. Please let your doctor or nurse know if you have problems taking your medications. 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 Here is a customized list of recommendations, based on information we have in your medical record. Your doctor may have additional recommendations for you, based on your personal medical history and risk factors. You can help us by calling us to make an appointment when you are due for your tests. Additional information regarding recommendations: Test/Treatment Last Done Next Due Additional Information Screening Colonoscopy or Flex Sig or Occult Blood X3 08/28/2010 08/28/2011 Checks for signs of cancer of the colon. Screening Mammogram every 1 year Women 40-75 08/28/2010 08/28/2011 X-rays of breast to check for breast cancer. Screening Pap Smear every 3 years Women 21-65 11/20/2010 12/20/2010 Checks for signs of cancer of the cervix. Lipid Panel every 5 years Age 20-75 08/23/2010 08/22/2015 Checks blood for good (HDL) and bad (LDL) cholesterol. Know your numbers, they are one indicator of your risk for heart attack and stroke. Vaccine: Tetanus every 10 years 08/15/2005 08/13/2015 Immunization to help prevent you from getting the serious disease Tetanus (Lockjaw). Your Upcoming Appointments Date Time Location Reason Provider No Appointments found Your Goals/Additional instructions: Source: [facility] [employer]ART Document Id: [id number] Electronically signed by Zaheer, [facility] [employer] [id number] at 08/05/2016 2:42 PM CDT Miscellaneous - Tin Schmidt, SOHAN, C.N.P. - 11/20/2010 4:49 PM CDT Ambulatory Depart Summary [address] [address] Visit Information Name: ALTHEA ARIAS Current Date: 11/20/2010 16:49:44 Primary Care Provider: TIN SCHMIDT [facility] ALTHEA ARIAS has been given the following list of medications: Your Medications It is important to take your medications as directed. Use a pill box or chart to help remind you to take your medications. Please let your doctor or nurse know if you have problems taking your medications. Medication/Strength Dose Route Frequency Indications/Special Instructions/Comments amoxicillin (amoxicillin 500 mg oral capsule) 1,000 mg Oral two times a day for 10 Days predniSONE (predniSONE 5 mg oral tablet) 1 tab(s) Oral once a day hydroxychloroquine (hydroxychloroquine 200 mg oral tablet) 200 mg Oral once a day folic acid (folic acid 1 mg oral tablet) 1 tab(s) Oral once a day methotrexate (methotrexate 2.5 mg oral tablet) 10 mg Oral every week Additional Information: Yes - Current list of reconciled medications is provided and explained to the patient and/or family, guardian/caregiver. Source: [facility] POWERCHART Document Id: [id number] Electronically signed by Zaheer [facility] [employer] [id number] at 08/05/2016 2:42 PM CDT Miscellaneous - Kari Mcnally L.PAviva - 11/20/2010 4:29 PM CDT Adult Clerical Assigner Intake/History Adult Clerical Assigner Intake/History Entered On: 11/20/2010 16:31 CDT Performed On: 11/20/2010 16:29 CDT by KARI MCNALLY Intake Chief Complaint: cough and fever Temperature Core: 36.8C(Converted to: 98.2DegF) Peripheral Pulse Rate: 68/min Respiratory Rate: 16/min Systolic Blood Pressure: 105mmHg Diastolic Blood Pressure: 50mmHg (LOW) NIBP Mean: 68mmHg Actual Weight: 76.600kg(Converted to: 168lb 14oz) Dosing Weight Clinic: 76.60kg KARI MCNALLY - 11/20/2010 16:29 CDT Subjective Pain Symptoms: No KARI MCNALLY - 11/20/2010 16:29 CDT Dependent Habits Tobacco Use/Currently Using: No KARI MCNALLY - 11/20/2010 16:29 CDT Caffeine Use Grid Caffeine Use: Current Type: Coffee, Tea Frequency: Daily KARI MCNALLY - 11/20/2010 16:29 CDT Recreational Drug Use Grid Drug Use: None KARI MCNALLY - 11/20/2010 16:29 CDT Allergy Allergies (Active) NKA Estimated Onset Date: Unspecified ; Created By: TIN SCHMIDT CNP; Reaction Status: Active ; Category: Drug ; Substance: NKA ; Type: Allergy ; Updated By: TIN SCHMIDT CNP; Reviewed Date: 05/15/2009 16:34 CDT Source: [facility] [employer] Document Id: [id number] CDT!23 documented in this encounter Plan of Treatment Upcoming Encounters Date Type Specialty Care Team Description 02/01/2022 Comprehensive Visit Family Medicine Tin Schmidt A PRN, C.N.P. [address] [place], [place] [phone] (Wo rk) documented as of this encounter Visit Diagnoses Not on filedocumented in this encounter
--- OUTSIDE RECORDS SUMMARY | 2022-01-21 23:29 | XMS_ITS | Encounter Summary ---
:1955 Author Organization [facility] Address [address] [place] [address] Care Team Providers Name Role Phone Unavailable Primary Care Provider Unavailable Encounter Details Date Type Department Care Team Description 08/10/2009 Hospital Encounter HX [facility] FB[facility] LAB Cynthia Rockwell A PRN, C.N.P. [address] [place], [place] [phone] (Wo rk) Social History [...] Medicine Cynthia Rockwell A PRN, C.N.P. [address] [place], [place] [phone] (Wo rk) documented as of this encounter Visit Diagnoses Not on filedocumented in this encounter
--- OUTSIDE RECORDS SUMMARY | 2022-01-21 23:29 | XMS_ITS | Encounter Summary ---
:1955 Author Organization [facility] Address [address] [place] [address] Care Team Providers Name Role Phone Unavailable Primary Care Provider Unavailable Encounter Details Date Type Department Care Team Description 09/14/2011 Hospital Encounter HX [facility] Tin Schmidt A PRN, C.N.P. [address] [place], [place] [phone] (Wo rk) Social History [...] (two) times a day. (CALCIUM-VITAMIN D ORAL) methotrexate 2.5 mg Take 8 tablets by 0 0 11/14/2017 tablet mouth once a week. documented as of this encounter Miscellaneous Notes Miscellaneous - Tin Schmidt APRN, C.N.P. - 09/16/2011 4:41 PM CDT Results Notification From: TIN SCHMIDT WIRELESS ENGINEER To: KARI MCNALLY Sent: 09/16/2011 16:41:11 CDT ! Show up: 09/16/2011 21:41:11 [facility] Subject: Results Notification Actions: Notify patient of results Source: [facility] POWERCHART Document Id: [id number] documented in this encounter Plan of Treatment Upcoming Encounters Date Type Specialty Care Team Description 02/01/2022 Comprehensive Visit Family Medicine Tin Schmidt A PRN, C.N.P. [address] [phone] (Wo rk) documented as of this encounter Procedures Procedure Name Priority Date/Time Associated Diagnosis Comme nts HX STOOL OCCULT Routine 09/14/2011 8:00 AM Result s for this BLOOD - DAY 3 CDT procedure are in the results section. HX STOOL OCCULT Routine 09/13/2011 8:00 AM Result s for this BLOOD - DAY 2 CDT procedure are in the results section. HX STOOL OCCULT Routine 09/12/2011 8:00 AM Result s for this BLOOD- DAY 1 CDT procedure are i n the results section. documented in this encounter Results HX STOOL OCCULT BLOOD - DAY 3 (09/14/2011 8:00 AM CDT) P athologist Signature Occult Blood - Negative POWERCHART 3, Fecal Specimen (Source) Anatomical Collection Method Collection Time Re ceived Time Location / / Volume Laterality Stool 09/14/2011 8:00 AM CDT Maisha Yancey APRNN.P. LAB HISTORICAL ORDERS Performing Organization Address [facility] Phon e Number POWERCHART HX STOOL OCCULT BLOOD - DAY 2 (09/13/2011 8:00 AM CDT) athologist Signature Occult Blood - Negative POWERCHART 2, Fecal Specimen (Source) Anatomical Collection Method Collection Time Re ceived Time Location / / Volume Laterality Stool 09/13/2011 8:00 AM CDT Arlette Yancey APRN.N.P. LAB HISTORICAL ORDERS Performing Organization Address [facility] Phon e Number POWERCHART HX STOOL OCCULT BLOOD- DAY 1 (09/12/2011 8:00 AM CDT) athologist Signature HXOccult Bld Negative Negative POWERCHART Stl I Specimen (Source) Anatomical Collection Method Collection Time Re ceived Time Location / / Volume Laterality Stool 09/12/2011 8:00 AM CDT Arlette Yancey APRN.N.P. LAB HISTORICAL ORDERS Performing Organization Address City/[facility] Phon e Number POWERCHART documented in this encounter Visit Diagnoses Not on filedocumented in this encounter
--- OUTSIDE RECORDS SUMMARY | 2022-01-21 23:29 | XMS_ITS | Encounter Summary ---
:1955 Author Organization [facility] Address [address] [place] [address] Care Team Providers Name Role Phone Unavailable Primary Care Provider Unavailable Encounter Details Date Type Department Care Team Description 08/30/2011 Hospital Encounter HX [facility] Kari Schmidt, RECREATION PROGRAMMER, C.N.P. [address] [place] [phone] (Wo rk) Social History Tobacco [...] Sign Reading Time Taken Comments Blood Pressure 104/62 08/30/2011 10:26 AM CDT Pulse 80 08/30/2011 10:26 AM CDT Temperature - - Respiratory Rate 16 08/30/2011 10:26 AM CDT Oxygen Saturation - - Inhaled Oxygen Concentration - - Weight 79.4 kg (175 lb 0.7 oz) 08/30/2011 10:26 AM CDT Height 156 cm (5' 1.42) 08/30/2011 10:26 AM CDT Body Mass Index 32.63 08/30/2011 10:26 AM CDT documented in this encounter Medications at Time of Discharge Medication Sig Dispensed Refills Start Date End Date CALCIUM CARB/VIT Take by mouth 2 0 06/27/2011 D3/MINERALS (two) times a day. (CALCIUM-VITAMIN D ORAL) methotrexate 2.5 mg Take 8 tablets by 0 0 11/14/2017 tablet mouth once a week. documented as of this encounter H&P Notes Tin Schmidt, SOHAN, C.N.P. - 08/30/2011 12:00 AM CDT [id number] CHIEF COMPLAINT/REASON FOR VISIT: 1) Health care maintenance 2) Dyspepsia. 3) Rheumatoid arthritis. HISTORY OF PRESENT ILLNESS: 1) Althea is here with Tereso who is interpreting for physical exam. She is due for Pap smear and colon screen. She has done hemoccult cards in the past and would like to do those again for the colon screening. Pap smear will be done today 2) She has complaints of heartburn. She states she has more discomfort if she eats certain spicy foods. She has had some bloating, no complaints of nausea, vomiting or diarrhea or constipation. No blood in the stool. 3) She has history of rheumatoid arthritis. She is on methotrexate. She gets labs done every 3 months. And follows with rheumatology at [place]. CURRENT MEDICATIONS: See depart summary from today. ALLERGIES: None known. SYSTEMS REVIEW: Positive for that mentioned in the history of present illness and noted in the past medical history and the EMR, all other systems reviewed and were negative. PAST MEDICAL/SURGICAL HISTORY Arthritis, cataracts, constipation, dyspepsia, osteopenia, rheumatoid arthritis. Past Surgical History None PREVENTIVE: Up-to-date. SOCIAL HISTORY: She does not smoke. No alcohol. FAMILY HISTORY: Parents both . Siblings 1 brother with GERD. The rest are healthy. VITAL SIGNS: See EMR PHYSICAL EXAMINATION: GENERAL: In general, the patient is a pleasant female appears her stated age. SKIN: Without lesion. EYES: PERRLA. EOMs intact. Fundi sharp discs. Conjunctiva and lids [...] Soft, nontender, no palpable mass, no hepatosplenomegaly. RECTUM: Normal perirectal area without skin tags or external hemorrhoids. Internal examination reveals a smooth rectal vault, no tenderness. Good rectal tone. GENITALIA: (Female) Bartholin, urethra, Maili's, vagina and cervix are without lesion. Thin prep Pap smear done with spatula and cytobrush. Bimanual examination reveals uterus is midline, mobile, nontender. No adnexal masses. SPINE: Normal range of motion. No CVA tenderness. JOINTS: Normal range of motion. EXTREMITIES: Warm, dry, no cyanosis or peripheral edema. MENTAL: Alert and oriented times three. NEURO: Deep tendon reflexes are +2 and symmetrical. IMPRESSION/REPORT/PLAN: 1) Health care maintenance. Encouraged to continue working on healthy diet and regular exercise program. She has qualified for 3-1/2 hours of FAMILY RESOURCE MANAGEMENT PROFESSOR services through [facility] nursing and I recently completed some other paperwork. I think she prefers to have a FAMILY RESOURCE MANAGEMENT PROFESSOR that can speak Somalian and is working on getting [facility] 2) Dyspepsia, ranitidine 150 mg 1 twice daily as needed for dyspepsia. Avoid excessively spicy foods when possible 3) Rheumatoid arthritis. She will continue following at [facility]. She had appointment last month and will follow up again in 3 months. I will mail her Pap smear results. Tin Schmidt CNP/nae Electronically Signed By: TIN SCHMIDT CNP On: 09/03/2011 07:49 AM Source: [facility] MHSDOLBEYNONRADSYS Document Id: [id number] documented in this encounter Miscellaneous Notes Miscellaneous - Natasha Messina L.P.N. - 09/18/2011 9:48 AM CDT Colorectal Cancer Screening Due Document Contains Addenda Addendum by KELLY LIPSCOMB on 24 September 2012 16:03:21 CDT From: KELLY LIPSCOMB To: NATASHA MESSINA LPN; Sent: 09/24/2012 16:03:21 CDT Show up: 09/24/2012 16:02:00 CDT Subject: RE: Colorectal Cancer Screening Due Patient called, daughter interpreted. Patient would like a fit test mailed to her. Daughter states when received in mail she will explain directions to mother. From: NATASHA MESSINA LPN To: KARI MCNALLY; Sent: 09/18/2011 09:48:52 CDT Show up: 09/05/2012 09:48:00 CDT Subject: Colorectal Cancer Screening Due Due Date/Time: 09/13/2012 09:48:00 CDT Please Remember to: Patient is due for colorectal cancer screening. Patient last completed hemoccultslides on 09/14/2011. This type of screening is due annually. Please call and advise patient. PATIENT: ( x ) Call Patient ( ) Ask Patient to ( ) ( ) Call Relative ( ) Schedule Patient ( ) ( ) Call for Dental Office Receptionist ( ) Follow up on Results ( ) Other: PROVIDER: ( ) Call Physician ( ) Call Pharmacist ( ) Call Lab ( ) Other: Special Instructions: Comments: Source: [facility] POWERCHART Document Id: [id number] Miscellaneous - Tin Schmidt APRN, C.N.P. - 09/16/2011 4:41 PM CDT Results Notification From: TIN SCHMIDT CNP To: KARI MCNALLY Sent: 09/16/2011 16:41:11 CDT ! Show up: 09/16/2011 21:41:11 [facility] Subject: Results Notification Actions: Notify patient of results Source: [facility] [employer] Document Id: [id number] Miscellaneous - Tin Schmidt APRN, C.N.P. - 08/30/2011 10:43 AM CDT Ambulatory Depart Summary [address] [address] Visit Information Name: ALTHEA ARIAS Visit Date: 08/30/2011 10:43:29 Attending Provider: TIN SCHMIDT CNP Primary Care [...] medications. Medication/Strength Dose Route Frequency Indications/Special Instructions/Comments calcium-vitamin D (Calcium 600+D) 1 tab Oral two times a day methotrexate (methotrexate 2.5 mg oral tablet) 10 mg Oral every week Attention: If you have any medications at home that are not on this list, DO NOT take them until youcontact your provider for clarification. Additional Information: [facility] Document Id: [id number] Miscellaneous - Tin Schmidt APRN, C.N.P. - 08/30/2011 10:43 AM CDT Ambulatory Patient Summary [address] [address] Visit Information Name: ALTHEA ARIAS Current Date: 08/30/2011 10:43:29 Physicians Attending Provider: TIN SCHMIDT CNP Primary Care Provider: TIN SCHMIDT CNP Your Medications Here is a list of your medications. It is important to take your medications as directed. Use a pillbox or chart to help remind you to take your medications. Please let your doctor or nurse know if you have problems taking your medications. Medication/Strength Dose Route Frequency Indications/Special Instructions/Comments calcium-vitamin D (Calcium 600+D) 1 tab Oral two times a day methotrexate (methotrexate 2.5 mg oral tablet) 10 mg Oral every week Attention: If you have any medications at home that are not on this list, DO NOT take them until youcontact your provider for clarification. 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 - 08/30/2011 10:28 AM CDT Health Assessment Health Assessment Entered On: 08/30/2011 10:28 CDT Performed On: 08/30/2011 10:28 CDT by KARI MCNALLY Health Assessment Complete Health Assessment Complete or Modified : Annual Health Assessment Annual Health Assessment Completed : Yes KARI MCNALLY - 08/30/2011 10:28 CDT Nutrition Nutrition Risk Factors by History Adult : None MCNALLYKARIN - 08/30/2011 10:28 CDT Functional Current Daily Living Assistance : Transportation DALI KARI YOU - 08/30/2011 10:28 CDT Dependent Habits Tobacco Use/Currently Using : No Smoking Status : Never smoker MCNALLY KARI YOU - 08/30/2011 10:28 CDT Caffeine Use Grid Caffeine Use : Current Type : Coffee, Tea Frequency : Daily KARI MCNALLY - 08/30/2011 10:28 CDT Recreational Drug Use Grid Drug Use : None MCNALLY KARI YOU - 08/30/2011 10:28 CDT Psychosocial Domestic Abuse Concerns : None KARI MCNALLY - 08/30/2011 10:28 CDT Advance Directive Advanced Directives : No KARI MCNALLY - 08/30/2011 10:28 CDT Educ Needs Learning Style Preference Adult Grid Patient : Verbal explanation Family : Verbal explanation KARI MCNALLY - 08/30/2011 10:28 CDT [facility] Document Id: [id number] Miscellaneous - Kari Mcnally LSheltonP.[place] - 08/30/2011 10:26 AM CDT Adult Care Asst Intake/History Adult Care Asst Intake/History Entered On: 08/30/2011 10:28 CDT Performed On: 08/30/2011 10:26 CDT by KARI MCNALLY Intake Chief Complaint : Physical Temperature Core : 36.6C(Converted to: 97.9DegF) Peripheral Pulse Rate : 80/min Respiratory Rate : 16/min Systolic Blood Pressure : 104mmHg Diastolic Blood Pressure : 62mmHg NIBP Mean : 76mmHg Height : 156cm(Converted to: 5ft 1inch(es), 61.42inch(es)) Actual Weight : 79.4kg(Converted to: 175lb 1oz) Dosing Weight Clinic : 79.40kg Clinic BSA : 1.85 Body Mass Index : 32.63kg/m2 KARI MCNALLY - 08/30/2011 10:26 CDT Subjective Pain Symptoms : No KARI MCNALLY - 08/30/2011 10:26 CDT Dependent Habits Tobacco Use/Currently Using : No Smoking Status : Never smoker KARI MCNALLY - 08/30/2011 10:26 CDT Caffeine Use Grid Caffeine Use : Current Type : Coffee, Tea Frequency : Daily KARI MCNALLY - 08/30/2011 10:26 CDT Recreational Drug Use Grid Drug Use : None KARI MCNALLY - 08/30/2011 10:26 CDT Allergy Allergies (Active) NKA Estimated Onset Date: Unspecified ; Created By: TIN SCHMIDT CNP; Reaction Status: Active ; Category: Drug ; Substance: NKA ; Type: Allergy ; Updated By: TIN SCHMIDT CNP; Reviewed Date: 05/15/2009 16:34 CDT Source: [facility] POWERCHART Document Id: [id number] documented in this encounter Plan of Treatment Upcoming Encounters Date Type Specialty Care Team Description 02/01/2022 Comprehensive Visit Family Medicine Tin Schmidt A PRN, C.N.P. [address] [phone] (Wo rk) documented as of this encounter Procedures Procedure Name Priority Date/Time Associated Diagnosis Comme [facility] THINPREP SCREEN HPV Routine 08/30/2011 10:54 AM R esults for this REFLEX CDT procedure are i n the results section. documented in this encounter Results Pathology ThinPrep Screen HPV Reflex (08/30/2011 10:54 AM CDT) [facility] Method Time Signature Interpretation [id number] POWERCHART HXThPrep Scrn See Comment POWERCHART Fnl-Rodriguez Comment: A. ??ThinPrep Pap Test Screen (Cervical/ Endocervical HPV Reflex): Satisfactory for evaluation. Negative for intraepithelial lesion or m alignancy. HXThPrep Scrn [facility] See Comment ABRAHAM RCHART Comment: Report electronically signed by LETTY Downey(ASCP) 09/06/2011 13:31 Interpreted by: LETTY Lopez(ASCP) HX Spec Desc-[place] See Comment POWERCHART Comment: A. ??ThinPrep Pap Test Screen (Cervical/ Endocervical HPV Reflex): Received clear specimen in ThinPrep vial . Test Performed by: [place] [address] Basket Turner: Nathan almaguer III, M.D. Specimen (Source) Anatomical Collection Method Collection Time Re ceived Time Location / / Volume Laterality Cervix/Endocervix 08/30/2011 10:54 AM CDT Tin Schmidt APRN C.N.[place]helton LAB PAP PATHDX ORDERABLES Performing Organization Address City/State/ZIP Code Phon e Number POWERCHART documented in this encounter Visit Diagnoses Not on filedocumented in this encounter
--- OUTSIDE RECORDS SUMMARY | 2022-01-21 23:29 | XMS_ITS | Encounter Summary ---
:1955 Author Organization [facility] Address [address] [place] [address] Care Team Providers Name Role Phone Unavailable Primary Care Provider Unavailable Encounter Details Date Type Department Care Team Description 01/31/2012 Hospital Encounter HX [facility] FAMILY[facility] Kari Schmidt, MORTARMAN, C.N.P. [address] [place] [address] (Wo rk) Social History Tobacco [...] Sign Reading Time Taken Comments Blood Pressure 94/50 01/31/2012 1:11 PM JEWEL BEARING MAKER Pulse 80 01/31/2012 1:11 PM JEWEL BEARING MAKER Temperature - - Respiratory Rate 16 01/31/2012 1:11 PM JEWEL BEARING MAKER Oxygen Saturation - - Inhaled Oxygen Concentration - - Weight 78.4 kg (172 lb 13.5 oz) 01/31/2012 1:11 PM JEWEL BEARING MAKER Height 155.5 cm (5' 1.22) 01/31/2012 1:11 PM JEWEL BEARING MAKER Body Mass Index 32.42 01/31/2012 1:11 PM JEWEL BEARING MAKER documented in this encounter Medications at Time of Discharge Medication Sig Dispensed Refills Start Date End Date CALCIUM CARB/VIT Take by mouth 2 0 06/27/2011 D3/MINERALS (two) times a day. (CALCIUM-VITAMIN D ORAL) folic acid 1 mg tablet Take 1 tablet by 0 012 11/14/2017 mouth daily. methotrexate 2.5 mg Take 8 tablets by 0 0 11/14/2017 tablet mouth once a week. predniSONE Take by mouth daily. 0 10/09/201111/02 (for_DELTASONE) 5 mg tablet documented as of this encounter Progress Notes Tin Schmidt, SOHAN, CSheltonNSheltonP. - 01/31/2012 12:59 PM CST [id number] CHIEF COMPLAINT/REASON FOR VISIT 1. Rheumatoid arthritis. 2. Degenerative joint disease lower extremities. HISTORY OF PRESENT ILLNESS Althea is here with Alfredo who is interpreting. She has history of rheumatoid arthritis. She is due for labs. She is here because she states she has a lot of body aches. She is due to follow up with rheumatology in early February. I have encouraged her to get that appointment scheduled as soon as possible. She has a lot of upper body stiffness and soreness in her neck and shoulders. She is wondering about physical therapy. I think that would be fine if it helps with her discomfort. CURRENT MEDICATIONS See depart summary from today. ALLERGIES None. SYSTEMS REVIEW Positive for that mentioned in history of present illness and noted in the past medical history in the EMR all other systems reviewed and were negative PREVENTIVE: She was given a flu shot today. VITAL SIGNS See EMR PHYSICAL EXAMINATION GENERAL: Well developed female in no acute distress. SKIN: Warm and dry. HEART: Regular rate and rhythm LUNGS: Clear to auscultation. ABDOMEN: Soft, nontender, no hepatosplenomegaly. EXTREMITIES: Limited range of motion in the knees due to discomfort. Shoulders normal range of motion some discomfort with overhead movement. Cervical range of motion is limited with flexion causing discomfort. IMPRESSION/REPORT/PLAN Rheumatoid arthritis with degenerative joint disease. She will schedule follow- up appointment with [facility] in early February. Will check CBC, creatinine and AST today. Those labs with faxed to rheumatology at [place] [facility]. She was given referral to [facility] for neck and shoulder pain. She was given a flu shot today Tin Schmidt CNP/glenna Electronically Signed By: TIN SCHMIDT CNP On: 02/05/2012 08:20 AM Source: [facility] MHSDOLBEYNONRADSYS Document Id: [id number] L BEARING MAKER documented in this encounter Miscellaneous Notes Miscellaneous - Tin Schmidt APRN, C.N.P. - 01/31/2012 2:58 PM CST Results Notification From: TIN SCHMIDT CNP To: DALI SOLANGE YOU Sent: 01/31/2012 14:58:48 JEWEL BEARING MAKER ! Show up: 01/31/2012 20:58:48 [facility] Subject: Results Notification Actions: Notify patient of results Source: [facility] POWERCHART Document Id: [id number] Electronically signed by Zaheer [facility] Blood Bank Coordinator [id number] at 08/05/2016 5:55 AM CDT Miscellaneous - Tin Schmidt APRN, C.N.P. - 01/31/2012 1:29 PM CST Ambulatory Patient Summary [address] [address] Visit Information Name: ALTHEA ARIAS [facility] Number: [id number] Current Date: 01/31/2012 13:29:27 Physicians Attending Provider: TIN SCHMIDT CNP Primary Care Provider: TIN SHCMIDT CNP Your Medications Here is a list of your medications. It is important to take your medications as directed. Use a pillbox or chart to help remind you to take your medications. Please let your doctor or nurse know if you have problems taking your medications. Medication/Strength Dose Route Frequency Indications/Special Instructions/Comments acetaminophen (acetaminophen 500 mg oral tablet) 1,000 mg Oral every 4 hours as needed for Pain senna (Senokot Extra 8.6 mg oral tablet) 17.2 mg Oral once a day (at bedtime) as needed for Constipation hydroxychloroquine (Plaquenil Sulfate 200 mg oral tablet) 200 mg Oral two times a day ibuprofen (ibuprofen 200 mg oral tablet) 200 mg Oral every 4 hours as needed for pain with food folic acid (folic acid 1 mg oral tablet) 1 mg Oral once a day meclizine (meclizine 25 mg oral tablet) 25 mg Oral three times a day as needed for Dizziness predniSONE (predniSONE 5 mg oral tablet) 10 mg Oral once a day ranitidine (ranitidine 150 mg oral tablet) 150 mg Oral two times a day calcium-vitamin D (Calcium 600+D) 1 tab Oral two times a day methotrexate (methotrexate 2.5 mg oral tablet) 7.5 mg Oral every week on Saturday night [...] No Appointments found Your Goals/Additional instructions: Source: [facility] POWERCHART Document Id: [id number] L BEARING MAKER Miscellaneous - Tin Schmidt APRN, C.N.P. - 01/31/2012 1:29 PM CST Ambulatory Depart Summary [address] [id number] [facility] [place] [address] Visit Information Name: ALTHEA ARIAS [facility] Number: [id number] Visit Date: 01/31/2012 13:29:26 Attending Provider: TIN SCHMIDT CNP Primary Care [...] medications. Medication/Strength Dose Route Frequency Indications/Special Instructions/Comments acetaminophen (acetaminophen 500 mg oral tablet) 1,000 mg Oral every 4 hours as needed for Pain senna (Senokot Extra 8.6 mg oral tablet) 17.2 mg Oral once a day (at bedtime) as needed for Constipation hydroxychloroquine (Plaquenil Sulfate 200 mg oral tablet) 200 mg Oral two times a day ibuprofen (ibuprofen 200 mg oral tablet) 200 mg Oral every 4 hours as needed for pain with food folic acid (folic acid 1 mg oral tablet) 1 mg Oral once a day meclizine (meclizine 25 mg oral tablet) 25 mg Oral three times a day as needed for Dizziness predniSONE (predniSONE 5 mg oral tablet) 10 mg Oral once a day ranitidine (ranitidine 150 mg oral tablet) 150 mg Oral two times a day calcium-vitamin D (Calcium 600+D) 1 tab Oral two times a day methotrexate (methotrexate 2.5 mg oral tablet) 7.5 mg Oral every week on Saturday night Attention: If you have any medications at home that are not on this list, DO NOT take them until youcontact your provider for clarification. Additional Information: Source: [facility] POWERCHART Document Id: [id number] L BEARING MAKER Miscellaneous - Solange Mcnally L.P.N. - 01/31/2012 1:[address] Traffic Control Technician Intake/History Adult Highway Traffic Control Technician Intake/History Entered On: 01/31/2012 13:13 JEWEL BEARING MAKER Performed On: 01/31/2012 13:11 JEWEL BEARING MAKER by SOLANGE MCNALLY Intake Chief Complaint : arthritis pain Temperature Core : 35.6C(Converted to: 96.1DegF) (LOW) Peripheral Pulse Rate : 80/min Respiratory Rate : 16/min Systolic Blood Pressure : 94mmHg Diastolic Blood Pressure : 50mmHg (LOW) NIBP Mean : 65mmHg Height : 155.5cm(Converted to: 5ft 1inch(es), 61.22inch(es)) Actual Weight : 78.4kg(Converted to: 172lb 13oz) Dosing Weight Clinic : 78.40kg Clinic BSA : 1.84 Body Mass Index : 32.42kg/m2 SOLANGE MCNALLY - 01/31/2012 13:11 JEWEL BEARING MAKER Subjective Pain Symptoms : No SOLANGE MCNALLY - 01/31/2012 13:11 JEWEL BEARING MAKER Dependent Habits Tobacco Use/Currently Using : No Smoking Status : Never smoker SOLANGE MCNALLY - 01/31/2012 13:11 JEWEL BEARING MAKER Caffeine Use Grid Caffeine Use : Current Type : Coffee, Tea Frequency : Daily SOLANGE MCNALLY - 01/31/2012 13:11 JEWEL BEARING MAKER Recreational Drug Use Grid Drug Use : None SOLANGE MCNALLY - 01/31/2012 13:11 JEWEL BEARING MAKER Allergy Allergies (Active) NKA Estimated Onset Date: Unspecified ; Created By: TIN SCHMIDT CNP; Reaction Status: Active ; Category: Drug ; Substance: NKA ; Type: Allergy ; Updated By: TIN SCHMIDT CNP; Reviewed Date: 10/09/2011 14:30 CDT Source: [facility] POWERCHART Document Id: [id number] L BEARING MAKER documented in this encounter Plan of Treatment Upcoming Encounters Date Type Specialty Care Team Description 02/01/2022 Comprehensive Visit Family Medicine Tin Schmidt, Kuldip PRN, C.N.P. [address] [place], [place] [address] (Wo rk) documented as of this encounter Procedures Procedure Name Priority Date/Time Associated Comments Diagnosis AUTOMATED DIFFERENTIAL, Routine 01/31/2012 1:36 R esults for this B PM JEWEL BEARING MAKER procedure are i n the results section. CBC WITH DIFFERENTIAL, B Routine 01/31/2012 1:36 Results for this PM JEWEL BEARING MAKER procedure are i n the results section. ASPARTATE Routine 01/31/2012 1:36 Results for this AMINOTRANSFERASE (AST), PM JEWEL BEARING MAKER proc edure are in S/P the results section. BASIC METABOLIC PANEL, Routine 01/31/2012 1:36 Re sults for this S/P PM JEWEL BEARING MAKER procedure are i n the results section. documented in this encounter Results Automated Differential (01/31/2012 1:36 PM JEWEL BEARING MAKER) P athologist Signature Neutro % 61.5 34.0 - 71.1 POWERCHART Lymphocytes % 26.4 19.3 - 51.7 POWERCHART HX [place]wall % 9.0 4.7 - 12.5 POWERCHART HX Eos % 2.8 0.7 - 5.8 POWERCHART HX Baso % 0.3 0.1 - 1.2 POWERCHART Specimen Anatomical Collection Method Collection Time Receive d Time (Source) Location / / Volume Laterality Blood 01/31/2012 1:36 PM 2 1:36 JEWEL BEARING MAKER PM JEWEL BEARING MAKER Tin Schmidt APRN, C.N.P. LAB BLOOD ADD-ON Performing Organization Address City/State/ZIP Code Phon e Number POWERCHART CBC with Differential (01/31/2012 1:36 PM JEWEL BEARING MAKER) P athologist Signature Leukocytes 4.0 3.4 - 10.5 POWERCHART X109L Erythrocytes 4.48 3.90 - POWERCHART 5.03 [id number] Hemoglobin 12.9 12.0 - POWERCHART 15.5 GDL Hematocrit 39.3 34.9 - POWERCHART 44.5 MCV 87.7 82.0 - POWERCHART 98.0 FL Platelet Count 208 150 - 450 POWERCHART X109L HX RDW 14.1 11.9 - POWERCHART 15.5 HXDifferential? Auto POWERCHART Specimen (Source) Anatomical Collection Method Collection Time Re ceived Time Location / / Volume Laterality Blood 01/31/2012 1:36 PM JEWEL BEARING MAKER Tin Schmidt APRN, C.N.P. LAB BLOOD ADD-ON Performing Organization Address City/State/ZIP Code Phon e Number POWERCHART (ABNORMAL) BMP (Basic Metabolic Panel) (01/31/2012 1:36 PM JEWEL BEARING MAKER) P athologist Signature BUN (Blood Urea 10 6 - 20 POWERCHART Nitrogen), S MGDL Creatinine 0.6 (L) 0.7 - 1.2 POWERCHART MGDL Glucose 107 POWERCHART Potassium, S 3.5 3.5 - 4.8 POWERCHART MMOLL Sodium, S 141 135 - 145 POWERCHART MMOLL Chloride, S 103 100 - 108 POWERCHART MMOLL CO2 Total 29 22 - 29 POWERCHART MMOLL Calcium, Total, 8.8 8.5 - 10.5 POWERCHART S MGDL BUN/Creatinine 16 POWERCHART Ratio HXeGFR (MDRD) >60 MLMIN POWERCHART eGFR >60 MLMIN POWERCHART Black/ Specimen (Source) Anatomical Collection Method Collection Time Re ceived Time Location / / Volume Laterality Blood 01/31/2012 1:36 PM JEWEL BEARING MAKER Tin Schmidt APRN, C.N.P. LAB BLOOD ADD-ON Performing Organization Address City/State/ZIP Code Phon e Number POWERCHART AST (Aspartate Aminotransferase) (01/31/2012 1:36 PM JEWEL BEARING MAKER) Patholo gist Method Time Signature Aspartate 20 8 - 43 POWERCHART Aminotransferase UNITL (AST), S Specimen (Source) Anatomical Collection Method Collection Time Re ceived Time Location / / Volume Laterality Blood 01/31/2012 1:36 PM JEWEL BEARING MAKER Tin Schmidt APRN, C.N.P. LAB BLOOD ADD-ON Performing Organization Address City/State/ZIP Code Phon e Number POWERCHART documented in this encounter Visit Diagnoses Not on filedocumented in this encounter
--- OUTSIDE RECORDS SUMMARY | 2022-01-21 23:29 | XMS_ITS | Encounter Summary ---
:1955 Author Organization [facility] Address [address] [place] [address] Care Team Providers Name Role Phone Unavailable Primary Care Provider Unavailable Encounter Details Date Type Department Care Team Description 08/23/2010 Hospital Encounter HX [facility] FAMILY[facility] Kari Schmidt, SENIOR POLICY ASSOCIATE, C.N.P. [address] [place] [address] (Wo rk) Social History Tobacco [...] of this encounter Progress Notes Tin Schmidt, SENIOR POLICY ASSOCIATE, C.N.P. - 08/23/2010 12:00 AM CDT [id number] CHIEF COMPLAINT/ REASON FOR VISIT Rheumatoid arthritis. HISTORY OF PRESENT ILLNESS Alteha was here with Marly who is interpreting. She has a history of rheumatoid arthritis. She follows in the Rheumatology Clinic at [facility]. She has an appointment coming up in October. She has been taking her Methotrexate and prednisone. She ran out of the hydroxychloroquine and I have encouraged her to go get another refill on that. She is requesting a letter in regards to obtaining a passport. Apparently she needs to take a test and has not been able to attend school to learn to read and write in [place], because of her rheumatoid arthritis. She is asking for a letter excusing her from that, so she can get her passport. She wants to go back to [facility] sometime in the near future. CURRENT MEDICATIONS See depart summary from today. ALLERGIES None PREVENTIVE Due for Pap smear. Declines mammogram. Will schedule colonoscopy. Given Hemoccult cards times three today. VITAL SIGNS See EMR PHYSICAL EXAM GENERAL: Well developed, well nourished female in no acute distress. SKIN: Warm and dry. HEART: Regular rate and rhythm LUNGS: Clear to auscultation. JOINTS: Multiple swollen, inflamed joints with rheumatoid arthritis. Difficulty with ambulation. Fine motor control is decreased. IMPRESSION/REPORT/PLAN Rheumatoid arthritis. She will follow up with the personal injury attorney at [place] in October. Will check CBC, AST, albumin and lipid panel today. She will schedule for a mammogram and return Hemoccult cards times three. I will do the letter for her and mail it to her and labs will be faxed to [place]. KYA/sailaja Signed Tin Taylor. Moiz, MSN, PLASTIC OUTFITTER, CDE Family Nurse Practitioner Electronically Signed By: TIN SCHMIDT CNP On: 08/23/2010 03:33 PM Source: [facility] Document Id: [id number] documented in this encounter Miscellaneous Notes Miscellaneous - Tin Schmidt APRN, C.N.P. - 08/23/2010 2:24 PM CDT Ambulatory Patient Summary [address] [facility] [place] [address] Visit Information Name: ALTHEA ARIAS Current Date: 08/23/2010 14:24:32 Primary Care Provider: TIN SCHMIDT CNP Your Medications Here is a list of your medications. It is important to take your medications as directed. Use a pillbox or chart to help remind you to take your medications. Please let your doctor or nurse know if you have problems taking your medications. Medication/Strength Dose Route Frequency Indications/Special Instructions/Comments predniSONE (predniSONE 5 mg oral tablet) 1 [...] Skin Test without Active Tuberculosis Active 06/03/2009 Your Recommendations We want to make sure [...] or Flex Sig or Occult Blood X3 06/14/2008 06/14/2009 Checks for signs of cancer of the colon. Screening Mammogram every 1 year Women 40-75 07/18/2009 07/18/2010 X-rays of breast to check for breast cancer. Screening Pap Smear every 3 years Women 21-65 08/23/2010 09/22/2010 Checks for signs of cancer of the cervix. Lipid Panel every 5 years Age 20-75 08/23/2010 08/22/2015 Checks blood for good (HDL) and bad (LDL) cholesterol. Know your numbers, they are one indicator of your risk for heart attack and stroke. Vaccine: Flu every 1 year 08/23/2010 02/18/2011 Immunization to help prevent you from getting the flu strain expected to be a problem for that year's flu season. Vaccine: Tetanus every 10 years 08/15/2005 08/13/2015 Immunization to help prevent you from getting the serious disease Tetanus (Lockjaw). Your Upcoming Appointments Date Time Location Reason Provider 08/28/2010 11:00 FB Mammo screen Your Goals/Additional instructions: Source: [facility] POWERCHART Document Id: [id number] Electronically signed by Conversion, [facility] Certified Optician [id number] at 08/05/2016 10:21 PM CDT Miscellaneous - Tin Schmidt, SOHAN, C.N.P. - 08/23/2010 2:24 PM CDT Ambulatory Depart Summary [address] [address] Visit Information Name: ALTHEA ARIAS Current Date: 08/23/2010 14:24:31 Primary Care Provider: TIN SCHMIDT [facility] ALTHEA ARIAS has been given the following list of medications: Your Medications It is important to take your medications as directed. Use a pill box or chart to help remind you to take your medications. Please let your doctor or nurse know if you have problems taking your medications. Medication/Strength Dose Route Frequency Indications/Special Instructions/Comments predniSONE (predniSONE 5 mg oral tablet) 1 [...] to the patient and/or family, guardian/caregiver. Source: [facility] POWERCHART Document Id: [id number] Electronically signed by Conversion, [facility] Certified Optician [id number] at 08/05/2016 10:21 PM CDT Miscellaneous - Conversion, Historical Provider Ser - 08/23/2010 9:52 AM CDT Adult Contact Lens Fitter Intake/History Adult Contact Lens Fitter Intake/History Entered On: 08/23/2010 9:53 CDT Performed On: 08/23/2010 9:52 CDT by CARLOS PERSAUD LPN Intake Chief Complaint: follow up arthritis complains of hurting all over goes to [place] in october Temperature Core: 36.4C(Converted to: 97.5DegF) (LOW) Peripheral Pulse Rate: 64/min Systolic Blood Pressure: 88mmHg (<LLOW) Diastolic Blood Pressure: 50mmHg (LOW) NIBP Mean: 63mmHg BP Location: Right upper extremity Height: 156.00cm(Converted to: 5ft 1in, 61.42in) Actual Weight: 76.000kg(Converted to: 167lb 9oz) Dosing Weight Clinic: 76.00kg Clinic BSA: 1.81 Body Mass Index: 31.23kg/m2 CARLOS PERSAUD LPN - 08/23/2010 9:52 CDT Subjective Pain Symptoms: No CARLOS PERSAUD LPN - 08/23/2010 9:52 CDT Dependent Habits Tobacco Use/Currently Using: No Alcohol Use: No CARLOS PERSAUD LPN - 08/23/2010 9:52 CDT Caffeine Use Grid Caffeine Use: Current Type: Coffee, Tea Frequency: Daily CARLOS PERSAUD LPN - 08/23/2010 9:52 CDT Recreational Drug Use Grid Drug Use: None CARLOS PERSAUD LPN - 08/23/2010 9:52 CDT Allergy Allergies (Active) NKA Estimated Onset Date: Unspecified ; Created By: TIN SCHMIDT CNP; Reaction Status: Active ; Category: Drug ; Substance: NKA ; Type: Allergy ; Updated By: TIN SCHMIDT CNP; Reviewed Date: 05/15/2009 16:34 CDT Source: [facility] Document Id: [id number] Miscellaneous - Tin Schmidt, SOHAN, C.N.P. - 08/23/2010 12:00 AM CDT [id number] August 23, 2010 TO WHOM IT MAY CONCERN RE: Althea Arias : 1955 Althea Arias has a history of quite severe rheumatoid arthritis. She is on multiple medications including Methotrexate, prednisone and Hydroxychloroquine which she takes on a daily basis. She gets care for her rheumatoid arthritis through the Rheumatology Clinic at [facility]. She suffers from inflammation in her joints. Her hands are affected. She has poor fine motor control. She has not been able to attend classes for reading and writing in [place] because of her joint inflammation and pain. She would like to obtain a passport, but has been having difficulty because of being unable to read and write in [place]. I feel she should be excused from this requirement as she is not able to physically sit in classes for long periods of time. If I can be of any further assistance, please feel free to call me at [phone]. Sincerely, Tin Schmidt, MSN, PLASTIC OUTFITTER, CDE Family Nurse Practitioner [facility]/fabians Electronically Signed By: TIN SCHMIDT CNP On: 08/23/2010 02:59 PM Source: [facility] MHSDOLBEYNONRADSYS Document Id: [id number] documented in this encounter Plan of Treatment Upcoming Encounters Date Type Specialty Care Team Description 02/01/2022 Comprehensive Visit Family Medicine Tin Schmidt A PRN, C.N.P. [address] [phone] (Wo rk) documented as of this encounter Visit Diagnoses Not on filedocumented in this encounter
--- OUTSIDE RECORDS SUMMARY | 2022-01-21 23:29 | XMS_ITS | Encounter Summary ---
:1955 Author Organization [facility] Address [address] [place] [address] Care Team Providers Name Role Phone Unavailable Primary Care Provider Unavailable Encounter Details Date Type Department Care Team Description 10/09/2011 Hospital Encounter [facility]X [facility] Kari Schmidt, TEACHER CITIZENSHIP, C.N.P. [address] [place] [address] (Wo rk) Social History Tobacco [...] Sign Reading Time Taken Comments Blood Pressure 94/64 10/09/2011 2:16 PM CDT Pulse 64 10/09/2011 2:16 PM CDT Temperature - - Respiratory Rate 16 10/09/2011 2:16 PM CDT Oxygen Saturation - - Inhaled Oxygen Concentration - - Weight 78.5 kg (173 lb 1 oz) 10/09/2011 2:16 PM CDT Height - - Body Mass Index 32.26 08/30/2011 10:26 AM CDT documented in this [...] Progress Notes Tin Schmidt, SOHAN, C.N.P. - 10/09/2011 1:52 PM CDT [id number] CHIEF COMPLAINT/REASON FOR VISIT 1. Dizziness 2. Rheumatoid arthritis. HISTORY OF PRESENT ILLNESS Ellie is here with Marly who is interpreting. She states she has had dizziness off and on for thepast 1 to 2 weeks. She notices it when she goes from lying to sitting or sitting to standing position primarily. She did have an episode yesterday where she turned her head fast and she felt lightheaded. She denies any upper respiratory symptoms. No fever. She does have history of rheumatoid arthritis. She is supposed to be having a CBC AST creatinine done every 3 months with results faxed to [facility]. She is currently on methotrexate and prednisone. Her last labs were done in April. Will draw those today and get them faxed CURRENT MEDICATIONS See depart summary from today. ALLERGIES None. SYSTEMS REVIEW Positive for that mentioned in history present illness and noted in the past medical history in the EMR all other systems were reviewed and were negative PREVENTIVE: Due for mammogram that will be done today. VITAL SIGNS See EMR PHYSICAL EXAMINATION GENERAL: Well developed female in no acute distress. SKIN: Warm and dry EYES: PERRLA EOMs intact fundi sharp disc conjunctiva was normal. ENT: TMs clear bilaterally. Throat clear. NECK: Supple. LUNGS: Clear to auscultation. HEART: Regular rate and rhythm ABDOMEN: Soft, nontender, hepatosplenomegaly. IMPRESSION/REPORT/PLAN 1. Benign positional vertigo. Meclizine 25 mg one to three times daily as needed for dizziness. We talked about for safety reasons be very careful when changing position and take her time to make sure she has her balance so she does not fall. She does have [facility] services 3 half hours daily [facility] 2. Rheumatoid arthritis. Will get CBC AST creatinine drawn today and fax those to [facility] Tin Schmidt CNP/glenna Electronically Signed By: TIN SCHMIDT CNP On: 10/10/2011 10:53 AM Source: [facility] MHSDOLBEYNONRADSYS Document Id: [id number] documented in this encounter Miscellaneous Notes Miscellaneous - Tin Schmidt APRN, C.N.P. - 10/09/2011 3:38 PM CDT Results Notification From: TIN SCHMIDT CNP To: DALI SOLANGE LYNN Sent: 10/09/2011 15:38:04 CDT ! Show up: 10/09/2011 20:38:04 [facility] Subject: Results Notification Actions: Notify patient of results Source: [facility] POWERCHART Document Id: [id number] Electronically signed by Zaheer [facility] Bilingual Speech Therapist [id number] at 08/04/2016 4:52 PM CDT Miscellaneous - Tin Schmidt APRN, C.N.P. - 10/09/2011 2:44 PM CDT Ambulatory Depart Summary [address] [address] Visit Information Name: ELLIE ARIAS Visit Date: 10/09/2011 14:44:53 Attending Provider: TIN SCHMIDT CNP Primary Care Provider: TIN SCHMIDT CNP ELLIE ARIAS has been given the following list of medications: Your Medications It is important to take your medications as directed. Use a pill box or chart to help remind you to take your medications. Please let your doctor or nurse know if you have problems taking your medications. Medication/Strength Dose Route Frequency Indications/Special Instructions/Comments meclizine (meclizine 25 mg oral tablet) 25 mg Oral three times a day as needed for Dizziness predniSONE (predniSONE 5 mg oral tablet) 5 mg Oral once a day ranitidine (ranitidine [...] your provider for clarification. Additional Information: Source: [facility] POWERCHART Document Id: [id number] Miscellaneous - Tin Schmidt APRN, C.N.P. - 10/09/2011 2:44 PM CDT Ambulatory Patient Summary [address] [address] Visit Information Name: ELLIE ARIAS Current Date: 10/09/2011 14:44:53 Physicians Attending Provider: TIN SCHMIDT CNP Primary Care Provider: TIN SCHMIDT CNP Your Medications Here is a list of your medications. It is important to take your medications as directed. Use a pillbox or chart to help remind you to take your medications. Please let your doctor or nurse know if you have problems taking your medications. Medication/Strength Dose Route Frequency Indications/Special Instructions/Comments meclizine (meclizine 25 mg oral tablet) 25 mg Oral three times a day as needed for Dizziness predniSONE (predniSONE 5 mg oral tablet) 5 mg Oral once a day ranitidine (ranitidine [...] found Your Goals/Additional instructions: Source: [facility] POWERCHART Document Id: [id number] Miscellaneous - Solange Mcnally L.P.N. - 10/09/2011 2:16 PM CDT Adult Interior Paneler Intake/History Adult Interior Paneler Intake/History Entered On: 10/09/2011 14:18 CDT Performed On: 10/09/2011 14:16 CDT by SOLANGE MCNALLY Intake Chief Complaint : dizziness with fall 3 hours ago. Temperature Core : 37.0C(Converted to: 98.6DegF) Peripheral Pulse Rate : 64/min Respiratory Rate : 16/min Systolic Blood Pressure : 94mmHg Diastolic Blood Pressure : 64mmHg NIBP Mean : 74mmHg Actual Weight : 78.5kg(Converted to: 173lb 1oz) Dosing Weight Clinic : 78.50kg SOLANGE MCNALLY - 10/09/2011 14:16 CDT Subjective Pain Symptoms : No SOLANGE MCNALLY - 10/09/2011 14:16 CDT Dependent Habits Tobacco Use/Currently Using : No Smoking Status : Never smoker SOLANGE MCNALLY - 10/09/2011 14:16 CDT Caffeine Use Grid Caffeine Use : Current Type : Coffee, Tea Frequency : Daily SOLANGE MCNALLY - 10/09/2011 14:16 CDT Recreational Drug Use Grid Drug Use : None SOLANGE MCNALLY - 10/09/2011 14:16 CDT Allergy Allergies (Active) NKA Estimated Onset Date: Unspecified ; Created By: TIN SCHMIDT CNP; Reaction Status: Active ; Category: Drug ; Substance: NKA ; Type: Allergy ; Updated By: TIN SCHMIDT CNP; Reviewed Date: 08/30/2011 10:43 CDT Source: [facility] POWERCHART Document Id: [id number] documented in this encounter Plan of Treatment Upcoming Encounters Date Type Specialty Care Team Description 02/01/2022 Comprehensive Visit Family Medicine Tin Schmidt A PRN, C.N.P. [address] [phone] (Wo rk) documented as of this encounter Procedures Procedure Name Priority Date/Time Associated Comments Diagnosis AUTOMATED DIFFERENTIAL, Routine 10/09/2011 2:49 R esults for this B PM CDT procedure are i n the results section. CBC WITH DIFFERENTIAL, B Routine 10/09/2011 2:49 Results for this PM CDT procedure are i n the results section. ASPARTATE Routine 10/09/2011 2:49 Results for this AMINOTRANSFERASE (AST), PM CDT proc edure are in S/P the results section. BASIC METABOLIC PANEL, Routine 10/09/2011 2:49 Re sults for this S/P PM CDT procedure are i n the results section. documented in this encounter Results Automated Differential (10/09/2011 2:49 PM CDT) P athologist Signature Neutro % 55.2 34.0 - 71.1 POWERCHART Lymphocytes % 30.7 19.3 - 51.7 POWERCHART HX Crane % 10.6 4.7 - 12.5 POWERCHART HX Eos % 2.9 0.7 - 5.8 POWERCHART HX Baso % 0.6 0.1 - 1.2 POWERCHART Specimen Anatomical Collection Method Collection Time Receive d Time (Source) Location / / Volume Laterality Blood 10/09/2011 2:49 PM 2 2:49 CDT PM CDT Tin Schmidt APRN, C.N.P. LAB BLOOD ADD-ON Performing Organization Address City/State/ZIP Code Phon e Number POWERCHART CBC with Differential (10/09/2011 2:49 PM CDT) athologist Signature Leukocytes 3.5 3.4 - 10.5 POWERCHART X109L Erythrocytes 4.41 3.90 - POWERCHART 5.03 [id number] Hemoglobin 13.0 12.0 - POWERCHART 15.5 GDL Hematocrit 38.8 34.9 - POWERCHART 44.5 MCV 88.0 82.0 - POWERCHART 98.0 FL Platelet Count 205 150 - 450 POWERCHART X109L HX RDW 14.4 11.9 - POWERCHART 15.5 HXDifferential? Auto POWERCHART Specimen (Source) Anatomical Collection Method Collection Time Re ceived Time Location / / Volume Laterality Blood 10/09/2011 2:49 PM CDT Tin Schmidt APRN, C.N.P. LAB BLOOD ADD-ON Performing Organization Address City/[facility] Code Phon e Number POWERCHART (ABNORMAL) BMP (Basic Metabolic Panel) (10/09/2011 2:49 PM CDT) P athologist Signature BUN (Blood Urea 7 6 - 20 POWERCHART Nitrogen), S MGDL Creatinine 0.6 (L) 0.7 - 1.2 POWERCHART MGDL Glucose 118 POWERCHART Potassium, S 3.9 3.5 - 4.8 POWERCHART MMOLL Sodium, S 140 135 - 145 POWERCHART MMOLL Chloride, S 104 100 - 108 POWERCHART MMOLL CO2 Total 28 22 - 29 POWERCHART MMOLL Calcium, Total, 8.8 8.5 - 10.5 POWERCHART S MGDL BUN/Creatinine 11 POWERCHART Ratio HXeGFR (MDRD) >60 MLMIN POWERCHART eGFR >60 MLMIN POWERCHART Black/ Specimen (Source) Anatomical Collection Method Collection Time Re ceived Time Location / / Volume Laterality Blood 10/09/2011 2:49 PM CDT Tin Schmidt APRN, C.N.P. LAB BLOOD ADD-ON Performing Organization Address City/State/ZIP Code Phon e Number POWERCHART AST (Aspartate Aminotransferase) (10/09/2011 2:49 PM CDT) Patholo gist Method Time Signature Aspartate 19 8 - 43 POWERCHART Aminotransferase UNITL (AST), S Specimen (Source) Anatomical Collection Method Collection Time Re ceived Time Location / / Volume Laterality Blood 10/09/2011 2:49 PM CDT Tin Schmidt APRN, C.N.P. LAB BLOOD ADD-ON Performing Organization Address City/State/ZIP Code Phon e Number POWERCHART documented in this encounter Visit Diagnoses Not on filedocumented in this encounter
--- OUTSIDE RECORDS SUMMARY | 2022-01-21 23:29 | XMS_ITS | Encounter Summary ---
:1955 Author Organization [facility] Address [address] [place] [address] Care Team Providers Name Role Phone Unavailable Primary Care Provider Unavailable Encounter Details Date Type Department Care Team Description 04/03/2012 Hospital Encounter HX [facility] FAMILY[facility] Kari Schmidt, PUMPER GAUGER, C.N.P. [address] [place] [phone] (Wo rk) Social History Tobacco [...] Sign Reading Time Taken Comments Blood Pressure 104/78 04/03/2012 11:03 AM CERTIFIED SURGICAL TECHNICIAN Pulse 60 04/03/2012 11:03 AM CERTIFIED SURGICAL TECHNICIAN Temperature - - Respiratory Rate 16 04/03/2012 11:03 AM CERTIFIED SURGICAL TECHNICIAN Oxygen Saturation - - Inhaled Oxygen Concentration - - Weight 80.5 kg (177 lb 7.5 oz) 04/03/2012 11:03 AM CERTIFIED SURGICAL TECHNICIAN Height - - Body Mass Index 33.29 01/31/2012 1:11 PM CERTIFIED SURGICAL TECHNICIAN documented in this encounter Medications at Time [...] of this encounter Progress Notes Tin Schmidt, SHOAN, C.N.P. - 04/03/2012 10:49 AM CST [id number] CHIEF COMPLAINT/REASON FOR VISIT 1. Rheumatoid arthritis with increased shoulder pain 2. Dizziness. HISTORY OF PRESENT ILLNESS Althea is here with Alfredo who is interpreting. She states she is having increased shoulder pain. WhenI last saw her I had given her a referral to [facility]. She lost her referral so never went. She would like a new one. Looking at her [facility] record she had called with complaints of her increased shoulder pain and she was started on Arava and her methotrexate was increased. In the [facility] record it states that she no showed her appointment on 03/07/2012. She tells me that that is when shereceived a call to increase her medications and that she did not have an appointment so there was some confusion there. I asked her today when her next appointment was she has no idea. Apparently her ch ildren speak Moldovan and they make her appointments so I am going to have them make sure to call andfind out when her next appointment is. We will check her CBC and creatinine and AST today. She has complaints of dizziness again. I have given her meclizine in the past and that has helped. She needs arefill on that too CURRENT MEDICATIONS See depart summary from today. ALLERGIES None. SYSTEMS REVIEW Positive for that mentioned in history present illness noted past medical history the EMR all other systems reviewed and were negative PREVENTIVE up to date. VITAL SIGNS See EMR PHYSICAL EXAMINATION GENERAL: Well developed well nourished female in no acute distress. SKIN: Warm and dry EYES: PERRLA EOMs intact fundi sharp disc conjunctiva and lids normal. ENT: TMs clear. Throat clear. NECK: Supple. No lymphadenopathy or thyromegaly. HEART: Regular rate and rhythm LUNGS: Clear to auscultation. ABDOMEN: Soft, nontender, no hepatosplenomegaly. EXTREMITIES: Warm, dry, no peripheral edema. Shoulders generalized achiness. No specific point tenderness. Range of motion is limited. IMPRESSION/REPORT/PLAN 1. Vertigo. Refill on meclizine 25 mg one to three times daily as needed. 2. Rheumatoid arthritis. New medication Arava and increase methotrexate recently. Will check CBC BMPand AST today. Those labs will be faxed to rheumatology. I am going to have one her Moldovan speakingchildren call to see when her next appointment with rheumatology is Total time spent with the patient 25 minutes 15 minutes counseling and coordinating care. Tin Schmidt CNP/glenna Electronically Signed By: TIN SCHMIDT CNP On: 04/07/2012 08:05 AM Source: [facility] MHSDOLBEYNONRADSYS Document Id: [id number] IFIED SURGICAL TECHNICIAN documented in this encounter Miscellaneous Notes Miscellaneous - Tin Schmidt APRN, C.N.P. - 04/03/2012 11:27 AM CERTIFIED SURGICAL TECHNICIAN Ambulatory Patient Summary [address] [address] Visit Information Name: ALTHEA ARIAS [facility] Number: [id number] Current Date: 04/03/2012 11:27:24 Physicians Attending Provider: TIN SCHMIDT CNP Primary [...] No Appointments found Your Goals/Additional instructions: Source: [facility] POWERCHART Document Id: [id number] IFIED SURGICAL TECHNICIAN Miscellaneous - Tin Schmidt APRN, C.N.P. - 04/03/2012 11:27 AM CERTIFIED SURGICAL TECHNICIAN Ambulatory Depart Summary [place] - [address] [address] Visit Information Name: ALTHEA ARIAS [facility] Number: [id number] Visit Date: 04/03/2012 11:27:23 Attending Provider: TIN SCHMIDT CNP Primary Care [...] your provider for clarification. Additional Information: Source: [facility] POWERCHART Document Id: [id number] IFIED SURGICAL TECHNICIAN Miscellaneous - Solange Mcnally L.P.NShelton - 04/03/2012 11:03 AM CST Adult Mortgage Originator Intake/History Adult Mortgage Originator Intake/History Entered On: 04/03/2012 11:05 CERTIFIED SURGICAL TECHNICIAN Performed On: 04/03/2012 11:03 CERTIFIED SURGICAL TECHNICIAN by SOLANGE MCNALLY Intake Chief Complaint : Not feeling well. Fell on Saturday and hit head. Very dizzy. Temperature Core : 36.6C(Converted to: 97.9DegF) Peripheral Pulse Rate : 60/min Respiratory Rate : 16/min Systolic Blood Pressure : 104mmHg Diastolic Blood Pressure : 78mmHg NIBP Mean : 87mmHg Actual Weight : 80.5kg(Converted to: 177lb 8oz) Dosing Weight Clinic : 80.50kg SOLANGE MCNALLY - 04/03/2012 11:03 CERTIFIED SURGICAL TECHNICIAN Subjective Pain Symptoms : No SOLANGE MCNALLY - 04/03/2012 11:03 CERTIFIED SURGICAL TECHNICIAN Dependent Habits Tobacco Use/Currently Using : No Smoking Status : Never smoker SOLANGE MCNALLY - 04/03/2012 11:03 CERTIFIED SURGICAL TECHNICIAN Caffeine Use Grid Caffeine Use : Current Type : Coffee, Tea Frequency : Daily SOLANGE MCNALLY - 04/03/2012 11:03 CERTIFIED SURGICAL TECHNICIAN Recreational Drug Use Grid Drug Use : None SOLANGE MCNALLY - 04/03/2012 11:03 CERTIFIED SURGICAL TECHNICIAN Allergy Allergies (Active) NKA Estimated Onset Date: Unspecified ; Created By: TIN SCHMIDT CNP; Reaction Status: Active ; Category: Drug ; Substance: NKA ; Type: Allergy ; Updated By: TIN SCHMIDT CNP; Reviewed Date: 01/31/2012 13:23 CERTIFIED SURGICAL TECHNICIAN Source: [facility] POWERCHART Document Id: [id number] IFIED SURGICAL TECHNICIAN documented in this encounter Plan of Treatment Upcoming Encounters Date Type Specialty Care Team Description 02/01/2022 Comprehensive Visit Family Medicine Tin Schmidt A PRN, C.N.P. [address] [place] [phone] (Wo rk) documented as of this encounter Procedures Procedure Name Priority Date/Time Associated Comments Diagnosis AUTOMATED DIFFERENTIAL, Routine 04/03/2012 11:27 Results for this B AM CERTIFIED SURGICAL TECHNICIAN procedure are i n the results section. CBC WITH DIFFERENTIAL, B Routine 04/03/2012 11:27 Results for this AM CERTIFIED SURGICAL TECHNICIAN procedure are i n the results section. ASPARTATE Routine 04/03/2012 11:27 Results for this AMINOTRANSFERASE (AST), AM CERTIFIED SURGICAL TECHNICIAN proc edure are in S/P the results section. BASIC METABOLIC PANEL, Routine 04/03/2012 11:27 R esults for this S/P AM CERTIFIED SURGICAL TECHNICIAN procedure are i n the results section. documented in this encounter Results Automated Differential (04/03/2012 11:27 AM CERTIFIED SURGICAL TECHNICIAN) P athologist Signature Neutro % 59.2 34.0 - 71.1 POWERCHART Lymphocytes % 30.8 19.3 - 51.7 POWERCHART HX Daniels % 8.1 4.7 - 12.5 POWERCHART HX Eos % 1.7 0.7 - 5.8 POWERCHART HX Baso % 0.2 0.1 - 1.2 POWERCHART Specimen Anatomical Collection Method Collection Time Receive d Time (Source) Location / / Volume Laterality Blood 04/03/2012 11:27 04/03/2012 AM CERTIFIED SURGICAL TECHNICIAN 11:27 AM CERTIFIED SURGICAL TECHNICIAN Tin Schmidt APRN, C.N.P. LAB BLOOD ADD-ON Performing Organization Address City/[facility]/ZIP Code Phon e Number POWERCHART CBC with Differential (04/03/2012 11:27 AM CERTIFIED SURGICAL TECHNICIAN) P athologist Signature Leukocytes 4.8 3.4 - 10.5 POWERCHART X109L Erythrocytes 4.48 3.90 - POWERCHART 5.03 [id number] Hemoglobin 12.9 12.0 - POWERCHART 15.5 GDL Hematocrit 39.8 34.9 - POWERCHART 44.5 MCV 88.8 82.0 - POWERCHART 98.0 FL Platelet Count 234 150 - 450 POWERCHART X109L HX RDW 14.3 11.9 - POWERCHART 15.5 HXDifferential? Auto POWERCHART Specimen (Source) Anatomical Collection Method Collection Time Re ceived Time Location / / Volume Laterality Blood 04/03/2012 11:27 AM CERTIFIED SURGICAL TECHNICIAN Tin Schmidt APRN, C.N.P. LAB BLOOD ADD-ON Performing Organization Address City/State/ZIP Code Phon e Number POWERCHART AST (Aspartate Aminotransferase) (04/03/2012 11:27 AM CERTIFIED SURGICAL TECHNICIAN) Patholo gist Method Time Signature Aspartate 20 8 - 43 POWERCHART Aminotransferase UNITL (AST), S Specimen (Source) Anatomical Collection Method Collection Time Re ceived Time Location / / Volume Laterality Blood 04/03/2012 11:27 AM CERTIFIED SURGICAL TECHNICIAN Maisha Yancey APRNN.P. LAB BLOOD ADD-ON Performing Organization Address City/State/ZIP Code Phon e Number POWERCHART (ABNORMAL) BMP (Basic Metabolic Panel) (04/03/2012 11:27 AM CERTIFIED SURGICAL TECHNICIAN) P athologist Signature BUN (Blood Urea 10 6 - 20 POWERCHART Nitrogen), S MGDL Creatinine 0.6 (L) 0.7 - 1.2 POWERCHART MGDL Glucose 126 POWERCHART Potassium, S 4.1 3.5 - 4.8 POWERCHART MMOLL Sodium, S 141 135 - 145 POWERCHART MMOLL Chloride, S 104 100 - 108 POWERCHART MMOLL CO2 Total 29 22 - 29 POWERCHART MMOLL Calcium, Total, 9.1 8.5 - 10.5 POWERCHART S MGDL HXeGFR (MDRD) >60 MLMIN POWERCHART eGFR >60 MLMIN POWERCHART Black/ Specimen (Source) Anatomical Collection Method Collection Time Re ceived Time Location / / Volume Laterality Blood 04/03/2012 11:27 AM CERTIFIED SURGICAL TECHNICIAN Arlette Yancey APRN.N.P. LAB BLOOD ADD-ON Performing Organization Address City/State/ZIP Code Phon e Number POWERCHART documented in this encounter Visit Diagnoses Not on filedocumented in this encounter
--- OUTSIDE RECORDS SUMMARY | 2022-01-21 23:29 | XMS_ITS | Encounter Summary ---
:1955 Author Organization [facility] Address [address] [place] [address] Care Team Providers Name Role Phone Unavailable Primary Care Provider Unavailable Encounter Details Date Type Department Care Team Description 10/09/2011 Hospital Encounter HX [facility] FBHB Cynthia Rodriguez, PRIEST, C.N.P. [address] [place], [place] [phone] (Wo rk) Social [...] Family Medicine Cynthia Rockwell A PRN, C.N.P. [address] [facility] [phone] (Wo rk) documented as of this encounter Procedures Procedure Name Priority Date/Time Associated Diagnosis Comme nts BI BREAST SCREENING Routine 10/09/2011 3:02 PM Re sults for this BILATERAL CDT procedure are i n the results section. documented in this encounter Results BI Breast Screening Bilateral (10/09/2011 3:02 PM CDT) Anatomical Region Laterality Modality Breast Bilateral Mammography Specimen (Source) Anatomical Collection Method Collection Time Re ceived Time Location / / Volume Laterality 10/09/2011 3:02 PM CDT Impressions 10/09/2011 3:46 PM CDT Stable fatty breasts, no evidence of malignancy. ACR code: 1, negative mammogram. Narrative 10/09/2011 3:46 PM CDT EXAM: [facility] Mammo Screening w/ CADD INDICATION: screen COMPARISON: 08/28/2010, 07/18/2009, and . FINDINGS: The breasts are of decreased f atty density. No suspicious dominant mass or clustered microcalcific ations suspicious for malignancy identified. There is no suspi cious interval change compared with 08/28/2010. CAD was utilized in the interpretation o f this exam. Procedure Note Berto Winter Jr., M.D. / Cyril Antony M.D. - 07/25/2016 EXAM: [place] Mammo Screening w/ CADD INDICATION: screen COMPARISON: 08/28/2010, 07/18/2009, and . FINDINGS: The breasts are of decreased f atty density. No suspicious dominant mass or clustered microcalcific ations suspicious for malignancy identified. There is no suspi cious interval change compared with 08/28/2010. CAD was utilized in the interpretation o f this exam. IMPRESSION: Stable fatty breasts, no sandra dence of malignancy. ACR code: 1, negative mammogram. Scar Maza([place])(M) IMG BI PROCEDURES documented in this encounter Visit Diagnoses Not on filedocumented in this encounter
--- OUTSIDE RECORDS SUMMARY | 2022-01-21 23:29 | XMS_ITS | Encounter Summary ---
:1955 Author Organization [facility] Address [address] [place] [address] Care Team Providers Name Role Phone Unavailable Primary Care Provider Unavailable Encounter Details Date Type Department Care Team Description 06/27/2011 Hospital Encounter HX [facility] BONE DENS Kari Rockwell, ECONOMIC GEOGRAPHER, C.N.P. [address] [place] [phone] (Wo rk) Social History Tobacco [...] Medicine Cynthia Rockwell, Kuldip EUBANKS, C.N.P. [address] [phone] (Wo rk) documented as of this encounter Visit Diagnoses Not on filedocumented in this encounter
--- OUTSIDE RECORDS SUMMARY | 2022-01-21 23:29 | XMS_ITS | Encounter Summary ---
:1955 Author Organization [facility] Address [address] [place] [address] Care Team Providers Name Role Phone Unavailable Primary Care Provider Unavailable Encounter Details Date Type Department Care Team Description 07/18/2009 Hospital Encounter HX [facility] Cynthia Rodriguez, PAINT BOOTH OPERATOR, C.N.P. [address] [place], [place] [phone] (Wo rk) Social History [...] Medicine Cynthia Rockwell A PRN, C.N.P. [address] [facility] [place] [phone] (Wo rk) documented as of this encounter Procedures Procedure Name Priority Date/Time Associated Diagnosis Comme nts BI BREAST SCREENING Routine 07/18/2009 5:04 PM Re sults for this BILATERAL CDT procedure are i n the results section. documented in this encounter Results BI Breast Screening Bilateral (07/18/2009 5:04 PM CDT) Anatomical Region Laterality Modality Breast Bilateral Mammography Specimen (Source) Anatomical Collection Method Collection Time Re ceived Time Location / / Volume Laterality 07/18/2009 5:04 PM CDT Impressions 07/19/2009 9:52 AM CDT 1. Benign findings only, ACR category 2. 2. I recommend routine yearly mammograms on this patient. ?? BREAST MAMMOGRAPHY-GENERAL OBSERVATION: The false negative rate for mammography is 10 to 15%. It cannot be u sed, therefore, to replace regular physical examination. A normal o r noncontributory mammogram report should also not deter the aggress joelle further workup of any suspected palpable masses. Narrative 07/19/2009 9:52 AM CDT Bilateral craniocaudal and oblique views of the breasts were obtained, and compared with the prior studies of and 08/15/2006. ?? The breast parenchyma remains predominan tly fatty and fibroglandular in appearance. Vascular and other benign calcifications are again noted bilaterally. There are no suspicio us masses or calcifications. ?? Computer Aided Detection was utilized du ring the interpretation of this exam. ?? Procedure Note Josiah Thorne M.D. - 07/26/2016Format ting of this note might be different from the original. Bilateral craniocaudal and oblique views of the breasts were obtained, and compared with the prior studies of and 08/15/2006. The breast parenchyma remains predominan tly fatty and fibroglandular in appearance. Vascular and other benign calcifications are again noted bilaterally. There are no suspicio us masses or calcifications. Computer Aided Detection was utilized du ring the interpretation of this exam. IMPRESSION: 1. Benign findings only, ACR category 2. 2. I recommend routine yearly mammograms on this patient. BREAST MAMMOGRAPHY-GENERAL OBSERVATION: The false negative rate for mammography is 10 to 15%. It cannot be u sed, therefore, to replace regular physical examination. A normal o r noncontributory mammogram report should also not deter the aggress joelle further workup of any suspected palpable masses. Casandra Whitehead.T.(R), R.T.(R)(M) IMG BI PROCEDURES documented in this encounter Visit Diagnoses Not on filedocumented in this encounter
--- OUTSIDE RECORDS SUMMARY | 2022-01-21 23:29 | XMS_ITS | Encounter Summary ---
:1955 Author Organization [facility] Address [address] [place] [address] Care Team Providers Name Role Phone Unavailable Primary Care Provider Unavailable Encounter Details Date Type Department Care Team Description 05/01/2011 Hospital Encounter HX [facility] LAB Cynthia Rockwell A PRN, C.N.P. [address] [place], [place] [phone] (Wo rk) Social History [...] Cynthia Rockwell A PRN, C.N.P. [address] [facility], [facility] [phone] (Wo rk) documented as of this encounter Procedures Procedure Name Priority Date/Time Associated Comments Diagnosis AUTOMATED DIFFERENTIAL, Routine 05/01/2011 3:32 R esults for this B PM BRIM SHAPER procedure are i n the results section. CBC WITH DIFFERENTIAL, B Routine 05/01/2011 3:32 Results for this PM BRIM SHAPER procedure are i n the results section. ASPARTATE Routine 05/01/2011 3:32 Results for this AMINOTRANSFERASE (AST), PM BRIM SHAPER proc edure are in S/P the results section. CREATININE WITH EGFR, Routine 05/01/2011 3:32 Res ults for this S/P PM BRIM SHAPER procedure are i n the results section. documented in this encounter Results Automated Differential (05/01/2011 3:32 PM BRIM SHAPER) athologist Signature Neutro % 54.4 34.0 - 71.1 POWERCHART Lymphocytes % 31.1 19.3 - 51.7 POWERCHART HX [place] % 11.8 4.7 - 12.5 POWERCHART HX Eos % 2.5 0.7 - 5.8 POWERCHART HX Baso % 0.2 0.1 - 1.2 POWERCHART Specimen Anatomical Collection Method Collection Time Receive d Time (Source) Location / / Volume Laterality Blood 05/01/2011 3:32 PM 2 3:32 BRIM SHAPER PM BRIM SHAPER Sahara Alvarez M.D. LAB BLOOD ADD-ON Performing Organization Address City/State/ZIP Code Phon e Number POWERCHART CBC with Differential (05/01/2011 3:32 PM BRIM SHAPER) athologist Signature Leukocytes 4.4 3.5 - 10.5 POWERCHART UNITL Erythrocytes 4.47 3.90 - POWERCHART 5.03 UNITL Hemoglobin 12.9 12.0 - POWERCHART 15.5 GDL Hematocrit 39.6 34.9 - POWERCHART 44.5 MCV 88.6 81.6 - POWERCHART 98.3 FL Platelet Count 223 150 - 450 POWERCHART UNITL HX RDW 13.7 11.9 - POWERCHART 15.5 HXDifferential? Auto POWERCHART Specimen (Source) Anatomical Collection Method Collection Time Re ceived Time Location / / Volume Laterality Blood 05/01/2011 3:32 PM BRIM SHAPER Sahara Alvarez M.D. LAB BLOOD ADD-ON Performing Organization Address City/State/ZIP Code Phon e Number POWERCHART Creatinine with eGFR (05/01/2011 3:32 PM BRIM SHAPER) P athologist Signature Creatinine 0.7 0.7 - 1.2 POWERCHART MGDL eGFR >60 MLMIN POWERCHART Black/ HXeGFR (MDRD) >60 MLMIN POWERCHART Specimen (Source) Anatomical Collection Method Collection Time Re ceived Time Location / / Volume Laterality Blood 05/01/2011 3:32 PM BRIM SHAPER Sahara Alvarez M.D. LAB BLOOD ADD-ON Performing Organization Address City/State/ZIP Code Phon e Number POWERCHART AST (Aspartate Aminotransferase) (05/01/2011 3:32 PM BRIM SHAPER) Patholo gist Method Time Signature Aspartate 22 8 - 43 POWERCHART Aminotransferase UNITL (AST), S Specimen (Source) Anatomical Collection Method Collection Time Re ceived Time Location / / Volume Laterality Blood 05/01/2011 3:32 PM BRIM SHAPER Sahara Alvarez M.D. LAB BLOOD ADD-ON Performing Organization Address City/State/ZIP Code Phon e Number POWERCHART documented in this encounter Visit Diagnoses Not on filedocumented in this encounter
--- OUTSIDE RECORDS SUMMARY | 2022-01-21 23:29 | XMS_ITS | Encounter Summary ---
:1955 Author Organization [facility] Address [address] [place] [address] Care Team Providers Name Role Phone Unavailable Primary Care Provider Unavailable Encounter Details Date Type Department Care Team Description 10/06/2010 Hospital Encounter HX [facility] Cynthia Chavez, EMAIL MARKETER, C.N.P. [address] [place], [place] [phone] (Wo rk) Social History [...] documented as of this encounter Progress Notes Malu Platt C.ODain. - 10/06/2010 9:17 AM CDT Eye Services Clinic Exam Eye Services Clinic Exam Entered On: 10/06/2010 9:27 CDT Performed On: 10/06/2010 9:17 CDT by MALU PLATT Chief Complaint and History Chief Complaint: Routine exam, Other: Pt here for routine eye exam Had glasses but lost them Pain Symptoms: No MALU PLATT - 10/06/2010 9:17 CDT Vision Testing Right Eye Vision Testing: Without correction, 20/20 Left Eye Vision Testing: Without correction, 20/20 Both Eyes Vision Testing: Without correction, 20/20 Right Eye Vision Testing Comment: Pictures Left Eye Vision Testing Comment: pictures Both Eyes Vision Testing Comment: pictures MALU PLATT - 10/06/2010 9:17 CDT Refraction Right Eye Manifest Grid Date: 10/06/2010 CDT Performed by: Leroy Sphere: 0 ADD: +2.50 MALU PLATT - 10/06/2010 9:17 CDT Left Eye Manifest Grid Date: 10/06/2010 CDT Performed by: Leroy ADD: +2.50 MALU PLATT - 10/06/2010 9:17 CDT Ocular Testing EOMS: Normal Pupils: PERRLA Cover Test: Normal MALU PLATT - 10/06/2010 9:17 CDT Intraoccular Pressures Intraoccular Pressures Grid Date: 10/06/2010 CDT 10/06/2010 CDT Eye: RE LE Applanation: 15 15 MALU PLATT - 10/06/2010 9:17 CDT MALU PLATT - 10/06/2010 9:17 CDT Eye Drops Exam Phenylephrine 2.5% Eye Drops Eye: Both eyes Phenylephrine 2.5% Eye Drops Amount: One drop Phenylephrine 2.5% Eye Drops Time: 9:26 FACULTY MEMBER Tropicamide 1% Eye Drops Eye: Both eyes Tropicamide 1% Eye Drops Amount: One drop Tropicamide 1% Eye Drops Time: 9:26 FACULTY MEMBER MALU PLATT - 10/06/2010 9:17 CDT Ocular Health Ocular Health Ext Rt Eye Grid Ext Rt Eye - Lids/Lashes: Normal Ext Rt Eye - Conjunctiva: Normal Ext Rt Eye - Cornea: Normal Ext Rt Eye - A/C: Normal Ext Rt Eye - Iris: Normal Ext Rt Eye - Lens: Normal (Comment: asc nsc ou [JUAN RAMON LOFTON MD - 10/06/2010 9:36 CDT] ) JUAN RAMON LOFTON MD - 10/06/2010 9:36 CDT Ocular Health Ext Lt Eye Grid Ext Lt Eye - Lids/Lashes: Normal Ext Lt Eye - Conjunctiva: Normal Ext Lt Eye - Cornea: Normal Ext Lt Eye - A/C: Normal Ext Lt Eye - Iris: Normal Ext Lt Eye - Lens: Normal (Comment: asc nsc ou [JUAN RAMON LOFTON MD - 10/06/2010 9:36 CDT] ) JUAN RAMON LOFTON MD - 10/06/2010 9:36 CDT Ocular Health Int Rt Eye Grid Int Rt Eye - Vitreous: Normal Int Rt Eye - C/D: Normal (Comment: 0.2 [JUAN RAMON LOFTON MD - 10/06/2010 9:36 CDT] ) Int Rt Eye - Margins: Normal Int Rt Eye - Color: Normal Int Rt Eye - Macula: Normal Int Rt Eye - Posterior Pole: Normal Int Rt Eye - Periphery: Normal Int Rt Eye - Vessels: Normal JUAN RAMON LOFTON MD - 10/06/2010 9:36 CDT Ocular Health Int Lt Eye Grid Int Lt Eye - Vitreous: Normal Int Lt Eye - C/D: Normal (Comment: 0.2 [JUAN RAMON LOFTON MD - 10/06/2010 9:36 CDT] ) Int Lt Eye - Margins: Normal Int Lt Eye - Color: Normal Int Lt Eye - Macula: Normal Int Lt Eye - Posterior Pole: Normal Int Lt Eye - Periphery: Normal Int Lt Eye - Vessels: Normal JUAN RAMON LOFTON MD - 10/06/2010 9:36 CDT Assessment Findings: Non-surgical cataract Assessment Comment: Mainly presbyopia, but does have ASC cataracts ou that may be interfeing with vision Try glasses first, if still distance trouble, consider KPE with IOl ou Plan Comment: New MR RTO 6-12 months JUAN RAMON LOFTON MD - 10/06/2010 9:36 CDT [facility] Document Id: [id number] CDT!37 documented in this encounter Plan of Treatment Upcoming Encounters Date Type Specialty Care Team Description 02/01/2022 Comprehensive Visit Family Medicine Cynthia Rockwell, Kuldip PRN, C.N.P. [address] [phone] (Wo rk) documented as of this encounter Visit Diagnoses Not on filedocumented in this encounter
--- OUTSIDE RECORDS SUMMARY | 2022-01-21 23:29 | XMS_ITS | Encounter Summary ---
:1955 Author Organization [facility] Address [address] [place] [address] Care Team Providers Name Role Phone Unavailable Primary Care Provider Unavailable Encounter Details Date Type Department Care Team Description 08/28/2010 Hospital Encounter HX [facility] LAB Cynthia Rockwell A PRN, C.N.P. [address] [place], [place] [phone] (Wo rk) Social History [...] Medicine Cynthia Rockwell A PRN, C.N.P. [address] [place], [place] [phone] (Wo rk) documented as of this encounter Visit Diagnoses Not on filedocumented in this encounter
--- OUTSIDE RECORDS SUMMARY | 2022-01-21 23:29 | XMS_ITS | Encounter Summary ---
:1955 Author Organization [facility] Address [address] [place] [address] Care Team Providers Name Role Phone Unavailable Primary Care Provider Unavailable Encounter Details Date Type Department Care Team Description 05/01/2011 Hospital Encounter HX [facility]ILY[facility] Kari Schmidt, EXTRACTOR TENDER RAW STOCK, C.N.P. [address] [place] [phone] (Wo rk) Social History Tobacco [...] Sign Reading Time Taken Comments Blood Pressure 84/60 05/01/2011 3:06 PM PICKLE CUTTER Pulse 64 05/01/2011 3:06 PM PICKLE CUTTER Temperature - - Respiratory Rate 16 05/01/2011 3:06 PM PICKLE CUTTER Oxygen Saturation - - Inhaled Oxygen Concentration - - Weight 76.8 kg (169 lb 5 oz) 05/01/2011 3:06 PM PICKLE CUTTER Height 157 cm (5' 1.81) 05/01/2011 3:06 PM PICKLE CUTTER Body Mass Index 31.16 05/01/2011 3:06 PM PICKLE CUTTER documented in this encounter Medications at Time of Discharge Medication Sig Dispensed Refills Start Date End Date methotrexate 2.5 mg Take 8 tablets by 0 0 11/14/2017 tablet mouth once a week. documented as of this encounter Progress Notes Tin Schmidt, SOHAN, C.N.P. - 05/01/2011 12:00 AM CST [id number] CHIEF COMPLAINT/ REASON FOR VISIT Rheumatoid arthritis. HISTORY OF PRESENT ILLNESS Althea has history of rheumatoid arthritis. She follows with rheumatology at [facility]. She is currently on hydroxychloroquine and prednisone daily and methotrexate weekly. She has been having a lot of achiness and weakness her upper extremities. She finds it difficult to bathe and wash her hair and comb her hair in the morning. She is wondering if she could get RENTAL MANAGER help. She is due for her standing labs for her methotrexate including CBC, AST and creatinine and those will be checked today CURRENT MEDICATIONS See depart summary from today ALLERGIES None SYSTEMS REVIEW Positive for that mentioned in history present illness noted the past medical history in the EMR all other systems reviewed were negative PREVENTIVE: Due for Pap smear advised to schedule VITAL SIGNS See EMR PHYSICAL EXAM Well developed female in no acute distress. SKIN: Several minor ecchymotic spots on the upper extremities. ENT: TMs clear. Throat clear. NECK: Supple. No lymphadenopathy or thyromegaly. HEART: Regular rate and rhythm S1-S2 no murmur. LUNGS: Clear to auscultation. ABDOMEN: Soft, nontender, hepatosplenomegaly. EXTREMITIES: Normal passive range of motion of the upper extremities. Unable to hold arms overhead for any length of time. Deep tendon reflexes 2+ and symmetrical. Normal sensation in the fingers. IMPRESSION/REPORT/PLAN Rheumatoid arthritis with increased pain and weakness in the upper extremities. I am going to place a call to [facility] to see if she can be evaluated for an hour of RENTAL MANAGER help daily. We will check her labs today and fax them to [place] [facility] SJM/clf Signed Tin Schmidt, MSN, SENIOR DIRECTOR OF [employer], CDE Family Nurse Practitioner Electronically Signed By: TIN SCHMIDT CNP On: 05/02/2011 01:05 PM Source: [facility] MHSDOLBEYNONRADSYS Document Id: [id number] LE CUTTER documented in this encounter Miscellaneous Notes Miscellaneous - Tin Schmidt APRN, C.N.P. - 05/01/2011 3:36 PM CST Ambulatory Patient Summary [address] [address] Visit Information Name: ALTHEA ARIAS Current Date: 05/01/2011 15:36:32 Physicians Attending Provider: TIN SCHMIDT CNP Primary [...] Test/Treatment Last Done Next Due Additional Information Health Assessment every 1 year 05/01/2011 Screening Colonoscopy or Flex Sig or Occult Blood 08/28/2010 08/28/2011 Checks for signs of cancer of the colon. Screening Mammogram every 1 year Women 40-75 08/28/2010 08/29/2011 X-rays of breast to check for breast [...] and stroke. Vaccine: Flu every 1 year 11/20/2010 11/20/2011 Immunization to help prevent you from getting the flu strain expected to be a problem for that year's flu season. Vaccine: Tetanus every 10 years 08/15/2005 08/13/2015 Immunization to help prevent you from getting the serious disease Tetanus (Lockjaw). Your Upcoming Appointments Date Time Location Reason Provider No Appointments found Your Goals/Additional instructions: Source: [facility] POWERCHART Document Id: [id number] LE CUTTER Miscellaneous - Tin Schmidt APRN, C.N.P. - 05/01/2011 3:36 PM CST Ambulatory Depart Summary [address] [address] Visit Information Name: ALTHEA ARIAS Visit Date: 05/01/2011 15:36:31 Attending Provider: TIN SCHMIDT CNP Primary Care [...] your provider for clarification. Additional Information: Source: [facility] POWERCHART Document Id: [id number] LE CUTTER Miscellaneous - Solange Mcnally L.P.N. - 05/01/2011 3:06 PM CST Adult Insole And Heel Stiffener Intake/History Adult Insole And Heel Stiffener Intake/History Entered On: 05/01/2011 15:08 PICKLE CUTTER Performed On: 05/01/2011 15:06 PICKLE CUTTER by SOLANGE MCNALLY Intake Chief Complaint : Doesn't feel well-very achy Temperature Core : 36.4C(Converted to: 97.5DegF) (LOW) Peripheral Pulse Rate : 64/min Respiratory Rate : 16/min Systolic Blood Pressure : 84mmHg (<LLOW) Diastolic Blood Pressure : 60mmHg NIBP Mean : 68mmHg Height : 157cm(Converted to: 5ft 2inch(es), 61.81inch(es)) Actual Weight : 76.8kg(Converted to: 169lb 5oz) Dosing Weight Clinic : 76.80kg Clinic BSA : 1.83 Body Mass Index : 31.16kg/m2 SOLANGE MCNALLY - 05/01/2011 15:06 PICKLE CUTTER Subjective Pain Symptoms : No SOLANGE MCNALLY - 05/01/2011 15:06 PICKLE CUTTER Dependent Habits Tobacco Use/Currently Using : No Smoking Status : Never smoker SOLANGE MCNALLY - 05/01/2011 15:06 PICKLE CUTTER Caffeine Use Grid Caffeine Use : Current Type : Coffee, Tea Frequency : Daily DALI SOLANGE KENYATTA - 05/01/2011 15:06 PICKLE CUTTER Recreational Drug Use Grid Drug Use : None MCNALLY SOLANGE KENYATTA - 05/01/2011 15:06 PICKLE CUTTER Allergy Allergies (Active) NKA Estimated Onset Date: Unspecified ; Created By: TIN SCHMIDT CNP; Reaction Status: Active ; Category: Drug ; Substance: NKA ; Type: Allergy ; Updated By: TIN SCHMIDT CNP; Reviewed Date: 05/15/2009 16:34 CDT Source: [facility] [employer] Document Id: [id number] PICKLE CUTTER!27 LE CUTTER documented in this encounter Plan of Treatment Upcoming Encounters Date Type Specialty Care Team Description 02/01/2022 Comprehensive Visit Family Medicine Tin Schmidt, Kuldip EUBANKS, C.N.P. [address] [phone] (Wo rk) documented as of this encounter Visit Diagnoses Not on filedocumented in this encounter
--- OUTSIDE RECORDS SUMMARY | 2022-01-21 23:30 | XMS_ITS | Encounter Summary ---
:1955 Author Organization [facility] Address [address] [place] [address] Care Team Providers Name Role Phone Unavailable Primary Care Provider Unavailable Encounter Details Date Type Department Care Team Description 06/22/2008 Hospital Encounter HX NO MAPPING Cynthia Rockwell, ADVISORY SERVICES ASSOCIATE, C.N.P. [address] [place], [place] [phone] (Wo rk) Social History [...] 1 to 4 times per year 09/01 faith services? Do you belong to any clubs [...] Medicine Cynthia Rockwell A PRN, C.N.P. [address] [place] [phone] (Wo rk) documented as of this encounter Procedures Procedure Name Priority Date/Time Associated Diagnosis Comme nts BI BREAST SCREENING Routine 06/22/2008 9:21 AM Re sults for this BILATERAL CDT procedure are i n the results section. documented in this encounter Results BI Breast Screening Bilateral (06/22/2008 9:21 AM CDT) Anatomical Region Laterality Modality Breast Bilateral Mammography Specimen (Source) Anatomical Collection Method Collection Time Re ceived Time Location / / Volume Laterality 06/22/2008 9:21 AM CDT Impressions 06/22/2008 9:21 AM CDT Stable fatty breasts, no radiographic evidence of malignancy. ? ACR CODE: One, negative mammogram. Narrative 06/22/2008 9:21 AM CDT Originally Signed By UNKNOWN, PERSONNEL Reason for exam: YEARLY HISTORY: Routine screening. ?? COMPARISON: 08/15/2006. ?? FINDINGS: The breasts are generally decr eased fatty density. No suspicious dominant mass or clustered mi crocalcifications suspicious for malignancy identified. There are sca ttered benign appearing calcifications. There is no suspicious i nterval change compared with 08/15/2006. ? CAD was utilized in the interpretation o f this exam. ? Procedure Note Provider, Candis Nam - 08/07/2016F ormatting of this note might be different from the original. Originally Signed By UNKNOWN, PERSONNEL Reason for exam: YEARLY HISTORY: Routine screening. COMPARISON: 08/15/2006. FINDINGS: The breasts are generally decr eased fatty density. No suspicious dominant mass or clustered mi crocalcifications suspicious for malignancy identified. There are sca ttered benign appearing calcifications. There is no suspicious i nterval change compared with 08/15/2006. CAD was utilized in the interpretation o f this exam. IMPRESSION: Stable fatty breasts, no rad iographic evidence of malignancy. ACR CODE: One, negative mammogram. Historical Provider IMG BI PROCEDURES documented in this encounter Visit Diagnoses Not on filedocumented in this encounter
--- OUTSIDE RECORDS SUMMARY | 2022-01-21 23:30 | XMS_ITS | Encounter Summary ---
:1955 Author Organization [facility] Address [address] [place] [address] Care Team Providers Name Role Phone Unavailable Primary Care Provider Unavailable Encounter Details Date Type Department Care Team Description 07/01/2008 Hospital Encounter HX [facility] CVC-Celio Murphy Jr., M.D. [address] [place] [phone] (Wo rk) Social History Tobacco [...] or relatives? How often do you attend quaker or 1 to 4 times per year 09/01 jehovah's witness services? Do you belong to any clubs or No 09/18/2018 organizations such as quaker groups, unions, fraternal or athletic groups, or [...] Medicine Cynthia Rockwell A PRN, C.N.P. [address] [place] [phone] (Wo rk) documented as of this encounter Visit Diagnoses Not on filedocumented in this encounter
--- OUTSIDE RECORDS SUMMARY | 2022-01-21 23:30 | XMS_ITS | Encounter Summary ---
:1955 Author Organization [facility] Address [address] [place] [address] Care Team Providers Name Role Phone Unavailable Primary Care Provider Unavailable Encounter Details Date Type Department Care Team Description 07/07/2009 Hospital Encounter HX [facility] Kari Schmidt, AURICULAR DETOXIFICATION SPECIALIST, C.N.P. [address] [place] [phone] (Wo rk) Social History Tobacco [...] or relatives? How often do you attend orthodox or 1 to 4 times per year 09/01 pentecostal services? Do you belong to any clubs or No 09/18/2018 organizations such as orthodox groups, unions, fraternal or athletic groups, [...] of this encounter Progress Notes Tin Schmidt, AURICULAR DETOXIFICATION SPECIALIST, C.N.P. - 07/07/2009 12:00 AM CDT [id number] IMPRESSION/REPORT/PLAN 1. Rheumatoid arthritis. Once we get laboratory orders they will be entered into the EMR and results will be faxed to her treer at [place]. CHIEF COMPLAINT/REASON FOR VISIT Rheumatoid arthritis HISTORY OF PRESENT ILLNESS Althea is here with Marly who is interpreting. She has been seen at [place] in the department of rheumatology. She is currently on Methotrexate prednisone and plaquenil. She was supposed to follow up here for laboratory work however she didn't bring the letter in with her for her orders and I was unable to find the order in [facility] it just referred to the patient being sent a letter so they are going to bring that in tomorrow and then will get her laboratories scheduled. She feels she is a little bit better since starting medication. CURRENT MEDICATIONS See Depart Summary from today ALLERGIES See EMR PREVENTIVE SERVICES See EMR VITAL SIGNS See EMR PHYSICAL EXAM AREA EXAM TEXT GENERAL Well developed female in no acute distress. SKIN Warm and dry. HEAD HEENT unremarkable. HEART Heart regular rate and rhythm. LUNGS Lungs clear to auscultation. ABDOMEN Abdomen soft, nontender, no hepatosplenomegaly. SJM/clf Signed Tin Taylor. Moiz, MSN, CAR INSTALLATIONS SUPERVISOR, CDE Family Nurse Practitioner Electronically Signed By:TIN SCHMIDT CNP On 07/12/2009 08:27 AM Source: [facility] [email or web address] Document Id: [id number] documented in this encounter Miscellaneous Notes Miscellaneous - Tin Schmidt APRN, C.N.P. - 07/08/2009 10:17 AM CDT Ambulatory Depart Summary [address] [address] Visit Information Name: ALTHEA ARIAS Current Date: 07/08/2009 10:17:43 Primary Care Provider: ALTHEA ARIAS has been given the following [...] to the patient and/or family, guardian/caregiver. Source: [facility] POWERCHART Document Id: [id number] Electronically signed by Conversion, [facility] Vice President Supply Chain [id number] at 08/06/2016 8:08 AM CDT Miscellaneous - Conversion, Historical Provider Ser - 07/07/2009 4:25 PM CDT Adult Under Ground Miner Intake/History Adult Under Ground Miner Intake/History Entered On: 07/07/2009 16:27 CDT Performed On: 07/07/2009 16:25 CDT by CARLOS PERSAUD LPN Intake Chief Complaint: recheck from [place] and needs labs Temperature Core: 36.2DegC(Converted to: 97.2DegF) (LOW) Peripheral Pulse Rate: 60bpm Systolic Blood Pressure: 84mmHg (<LLOW) Diastolic Blood Pressure: 50mmHg (LOW) NIBP Mean: 61mmHg BP Location: Left upper extremity Actual Weight: 67.500kg(Converted to: 148.812lb) Dosing Weight Clinic: 67.50kg CARLOS PERSAUD LPN - 07/07/2009 16:25 CDT Subjective Pain Symptoms: No CARLOS PERSAUD LPN - 07/07/2009 16:25 CDT Dependent Habits Tobacco Use/Currently Using: No Alcohol Use: No CARLOS PERSAUD LPN - 07/07/2009 16:25 CDT Caffeine Use Grid Caffeine Use: Current Type: Coffee, Tea Frequency: Daily Comments (Comment: 3 cups daily [CARLOS PERSUAD LPN - 07/07/2009 16:25 CDT] ) CARLOS PERSAUD LPN - 07/07/2009 16:25 CDT Allergies Allergies (Active) NKA Estimated Onset Date: Unspecified ; Created By: TIN SCHMIDT CNP; Reaction Status: Active ; Category: Drug ; Substance: NKA ; Type: Allergy ; Updated By: TIN SCHMIDT CNP; Reviewed Date: 05/15/2009 16:34 CDT Health History II Musculoskeletal Past Medical Hx Grid Arthritis: Self, Rheumatoid Osteoporosis: Self TIN SCHMIDT CNP - 07/08/2009 11:31 CDT [facility] Document Id: [id number] documented in this encounter Plan of Treatment Upcoming Encounters Date Type Specialty Care Team Description 02/01/2022 Comprehensive Visit Family Medicine Tin Schmidt, Kuldip EUBANKS, C.N.P. [address] [phone] (Wo rk) documented as of this encounter Visit Diagnoses Not on filedocumented in this encounter
--- OUTSIDE RECORDS SUMMARY | 2022-01-21 23:30 | XMS_ITS | Encounter Summary ---
:1955 Author Organization [facility] Address [address] [place] [address] Care Team Providers Name Role Phone Unavailable Primary Care Provider Unavailable Encounter Details Date Type Department Care Team Description 09/11/2006 Hospital Encounter HX [facility] Celio Ivy Jr., M.D. [address] [place] [phone] (Wo rk) Social History Tobacco [...] Medicine Cynthia Rockwell A PRN, C.N.P. [address] [place] [phone] (Wo rk) documented as of this encounter Visit Diagnoses Not on filedocumented in this encounter
--- OUTSIDE RECORDS SUMMARY | 2022-01-21 23:30 | XMS_ITS ---
:1955 Author Care Team Providers Name Role Phone Isidoro Hammondsabella Primary Care Provider Unavailable Allergies Code Code System Name Reaction Severity Status Onset NKDA ? Medications Name Status Start Date Stop Date ? ? ammonium lactate 12 % topical cream Active ? Not available amoxicillin 500 mg tablet Active ? Not av ailable azithromycin 250 mg tablet Active ? Not a vailable capsaicin 0.025 % topical cream Active ? Not available chlorhexidine gluconate 0.12 % mouthwash Active ? Not available diclofenac 1 % topical gel Active ? Not a vailable duloxetine 60 mg capsule,delayed release Active ? Not available Ensure Complete 0.05 gram-1.5 kcal/mL oral liquid Active ? Not available folic acid 1 mg tablet Active ? Not avail able ibuprofen 600 mg tablet Active ? Not avai lable leflunomide 20 mg tablet Active ? Not liang ilable levofloxacin 500 mg tablet Active ? Not a vailable levothyroxine 75 mcg tablet Active ? Not available lorazepam 0.5 mg tablet Active ? Not avai lable meclizine 25 mg tablet Active ? Not avail able methotrexate sodium 2.5 mg tablet Active ? Not available wvrjtuop-bswqhdijq-xtxyigbad 3.5 mg/mL-10,000 unit/mL-1 % Active ? Not available ear solution olopatadine 0.1 % eye drops Active ? Not available omeprazole 20 mg capsule,delayed release Active ? Not available Take 1 capsule every day by oral route. oxycodone 5 mg tablet Active ? Not availa ble Oyster Shell Calcium-Vitamin D3 500 mg-5 mcg (200 unit) Active ? Not available tablet Pain Reliever (acetaminophen) 500 mg tablet Active ? Not available prednisone 20 mg tablet Active ? Not avai lable prednisone 5 mg tablet Active ? Not avail able trazodone 50 mg tablet Active ? Not avail able Vitamin D3 50 mcg (2,000 unit) tablet Active ? Not available Take 1 unit every day by oral route. Problems Name Status Onset Date Source ? Arthritis Active 12/06/2018 ? Aching Pain Active 12/06/2018 ? Procedures None recorded. Results Lab Results None recorded. Past Encounters None recorded. Social History Tobacco Smoking Status Never Smoker Vaccine List None recorded. Plan of Care Reminders Provider Appointments None recorded. ? ? Lab None recorded. ? ? Referral None recorded. ? ? Procedures None recorded. ? ? Surgeries None recorded. ? ? Imaging None recorded. ? ? Vitals 08/29/2019 01:00PM FOLLOW UP 30 Height Weight BMI Blood Pressure 5 ft 1.6 in 172 lbs 31.9 kg/m2 118/66 mm[Hg] 12/06/2018 01:30PM FOLLOW UP 30 Height Weight BMI Blood Pressure 5 ft 1.6 in 168 lbs 31.1 kg/m2 138/63 mm[Hg]
--- OUTSIDE RECORDS SUMMARY | 2022-01-21 23:30 | XMS_ITS | Encounter Summary ---
:1955 Author Organization [facility] Address [address] [place] [address] Care Team Providers Name Role Phone Unavailable Primary Care Provider Unavailable Encounter Details Date Type Department Care Team Description 09/02/2006 Hospital Encounter HX [facility]VC-Celio Murphy Jr., M.D. [address] [place] [phone] (Wo rk) Social History Tobacco [...] 1 to 4 times per year 09/01 protestant services? Do you belong to any clubs [...] Medicine Cynthia Rockwell A PRN, C.N.P. [address] [place] [phone] (Wo rk) documented as of this encounter Visit Diagnoses Not on filedocumented in this encounter
--- OUTSIDE RECORDS SUMMARY | 2022-01-21 23:41 | XMS_ITS ---
[...] 2.5 mg tablet Active ? Not available gmazqtuq-oprigwyzc-czdvxmaek 3.5 mg/mL-10,000 unit/mL-1 % Active ? Not [...]
== END 2022-01-21 23:20 | disposition home or self-care (01) ==
LOC: ED 23:17
PROVIDERS: Emergency Provider Internal Medicine
DX: M06.9 Rheumatoid arthritis, unspecified (principal); E03.9 Hypothyroidism, unspecified; D84.821 Immunodeficiency due to drugs; Z79.899 Other long term (current) drug therapy; Z79.52 Long term (current) use of systemic steroids
CPT/HCPCS: 96372; 99283; 99284; J2920

== ENCOUNTER 2022-04-28 01:48 | Emergency (ER) | payer MEDICAID, SELFPAY ==
[2022-04-28 01:56] VITALS: BP 121/81; PULSE 81; RESP 20; TEMP 36.8; O2SAT 99; BMI 26.6
--- NOTE | 2022-04-28 02:14 | ED_ITS ---
HPI - General Adult General Chief complaint: Nausea/Vomiting Stated complaint: Nausea, Vomiting, Fever Time Seen by Provider: 04/28/22 02:05 History of Present Illness HPI narrative: Pt actually presents with worsening of her chronic joint complaints secondary to rheumatoid arthritis. Pt takes 10 mg daily plus methotrexate for her rheumatoid arthritis. Tonight the pain was terrible in her hands and elbows. Pt has obvious rheumatoid deformaties. Pt has no skin breakdown or signs of infection. Pt initially said that she was nauseated but this is not the case. Pt also having moderate pain in her knees and hips. Pt having no neurological symptoms. No signs of infection. She does have an upcoming appointment with Rheumatology. Related Data Home Medications Medication Instructions Recorded Confirmed acetaminophen 500 mg tablet (Pain 1,000 mg PO TID PRN 01/21/22 01/21/22 Relief (acetaminophen)) cholecalciferol (vitamin D3) 50 2,000 unit PO DAILY 01/21/22 01/21/22 mcg (2,000 unit) tablet diclofenac sodium 1 % topical gel 4 g topical QID 01/21/22 01/21/22 docusate sodium 100 mg capsule 100 mg PO DAILY 01/21/22 01/21/22 folic acid 1 mg tablet 1 mg PO DAILY 01/21/22 01/21/22 leflunomide 20 mg tablet 20 mg PO DAILY 01/21/22 01/21/22 levothyroxine 100 mcg tablet 100 mcg PO DAILY 01/21/22 01/21/22 meclizine 25 mg tablet 25 mg PO QID PRN 01/21/22 01/21/22 methotrexate sodium 2.5 mg tablet 2.5 mg PO QWEEK 01/21/22 01/21/22 omeprazole 20 mg capsule,delayed 20 mg PO DAILY 01/21/22 01/21/22 release prednisone 5 mg tablet 5 mg PO DAILY 01/21/22 01/21/22 Allergies Allergy/AdvReac Type Severity Reaction Status Date / Time No Known Drug Allergies Allergy Verified 01/21/22 23:00 Review of Systems Status of ROS: Reports: 10 or more systems reviewed and unremarkable except as noted in History and below [facility] Medical History Hypothyroidism Immunodeficiency due to drugs Rheumatoid arthritis Vitamin D deficiency Surgical History No significant past surgical history Social History Smoking Status: Never smoker Do you use any of these nicotine containing products: None Second hand tobacco smoke exposure: No How often do you have a drink containing alcohol: never How often do you have six or more drinks on one occasion: Never AUDIT-C Alcohol total score: 0 Non-prescribed substance use: denies use Exam Narrative: Exam Narrative: EXAM GENERAL: Patient appears comfortable and well. Obvious signs rheumatoid arthritis in the hands and elbows. EYES: No scleral icterus. LYMPH: No supraclavicular or cervical lymphadenopathy. SKIN: Visible skin seen during exam normal or with benign process only. EXT: No dependent lower extremity pedal edema. HEART: Regular rate and rhythm with no murmurs, rubs, or gallops. LUNGS: Clear to auscultation bilaterally with no crackles or wheezes. ABD: Soft, non tender, non distended. PSYCH: Good eye contact, speech is not pressured. Const: Vital Signs, click to edit/add: Vital Signs - 24 hr 04/28/22 01:56 Temperature 98.3 F Pulse Rate [Pulse Oximeter] 81 Respiratory Rate 20 Blood Pressure [Ri ght Upper Arm] 121/81 Pulse Oximetry 99 Oxygen Delivery Me thod Room Air Course Course Hospital Course: Pt seen and examined. Given 40 mg of IM Solumedrol. Vital Signs Vital signs: Initial Vital Signs Temperature 98.3 F 04/28/22 01:56 Temperature Source Oral 04/28/22 01:56 Pulse Rate 81 04/28/22 01:56 Pulse Rhythm 04/28/22 01:56 Pulse Strength 3+ Normal 04/28/22 01:56 Respiratory Rate 20 04/28/22 01:56 Blood Pressure 121/81 04/28/22 01:56 Blood Pressure Mean 94 04/28/22 01:56 Blood Pressure Position Sitting 04/28/22 01:56 Pulse Oximetry 99 04/28/22 01:56 Oxygen Delivery Method 04/28/22 01:56 Vital Signs Temperature 98.3 F 04/28/22 01:56 Pulse Rate 81 04/28/22 01:56 Respiratory Rate 20 04/28/22 01:56 Blood Pressure 121/81 04/28/22 01:56 Pulse Oximetry 99 04/28/22 01:56 Oxygen Delivery Method 04/28/22 01:56 Temperature 98.3 F 04/28/22 01:56 Pulse Rate 81 04/28/22 01:56 Respiratory Rate 20 04/28/22 01:56 Blood Pressure 121/81 04/28/22 01:56 Pulse Oximetry 99 04/28/22 01:56 Oxygen Delivery Method 04/28/22 01:56 Medical Decision Making MDM Narrative Medical decision making narrative: Pt with steroid dependent rheumatoid arthritis presents with worsening joint symptoms. No fever or signs of infection. No injuries. Will treat with steroid burst with PCP follow up. Differential Diagnosis Differential Diagnosis: Rheumatoid Arthritis, PMR, SLE, OA, Injury Discharge Plan Discharge Clinical Impression: Rheumatoid arthritis Patient Disposition: Home, Self-Care Condition: Stable Instructions: Rheumatoid Arthritis (ED) Additional Instructions: Increase prednisone to 20 mg twice daily for 5 days before going back to 10 mg daily Follow up with your doctor as needed Activity Level: No Restrictions Discharge Diet: Regular Prescriptions: No Action folic acid 1 mg tablet 1 mg PO DAILY Label Comments: TAKE 1 TABLET BY MOUTH ONCE DAILY acetaminophen [Pain Relief (acetaminophen)] 500 mg tablet 1,000 mg PO TID PRN Label Comments: TAKE 2 TABLETS BY MOUTH EVERY 8 HOURS NEEDED FOR MODERATE PAIN OR SCORE OF 4-6 OF 10 cholecalciferol (vitamin D3) 50 mcg (2,000 unit) tablet 2,000 unit PO DAILY Label Comments: TAKE 1 TABLET BY MOUTH ONCE DAILY diclofenac sodium 1 % gel 4 g TOPICAL QID Label Comments: APPLY 4 GRAMS TOPICALLY 4 TIMES DAILY TO LOWER EXTREMITIES AND 2 GRAMS TOPICALLY 4 TIMES DAILY TO UPPER EXTREMITIES docusate sodium 100 mg capsule 100 mg PO DAILY Label Comments: TAKE 1 CAPSULE BY MOUTH ONCE DAILY leflunomide 20 mg tablet 20 mg PO DAILY levothyroxine 100 mcg tablet 100 mcg PO DAILY Label Comments: TAKE 1 TABLET BY MOUTH ONCE DAILY meclizine 25 mg tablet 25 mg PO QID PRN Label Comments: TAKE 1 TABLET BY MOUTH NEEDED FOR DIZZINESS methotrexate sodium 2.5 mg tablet 2.5 mg PO QWEEK omeprazole 20 mg capsule,delayed release(DR/EC) 20 mg PO DAILY prednisone 5 mg tablet 5 mg PO DAILY Label Comments: TAKE 1 TABLET BY MOUTH ONCE DAILY Follow Up/Referrals: Provider,Not a Local [Primary Care Provider] - Stand Alone Forms: [employer] Info Instructions
[2022-04-28] MEDS: METHYLPREDNISOLONE SOD SUCC 40 MG/ML IM (02:40)
== END 2022-04-28 02:46 | disposition home or self-care (01) ==
LOC: ED 02:36
PROVIDERS: Emergency Provider Internal Medicine
DX: M06.9 Rheumatoid arthritis, unspecified (principal)
CPT/HCPCS: 96372; 99283; J2920

== ENCOUNTER 2022-08-20 02:51 | Emergency (ER) | payer MEDICAID, SELFPAY ==
[2022-08-20 03:04] VITALS: BP 136/69; PULSE 89; RESP 18; TEMP 36.9; O2SAT 97; BMI 32.9
--- NOTE | 2022-08-20 03:32 | ED.GENADULT ---
HPI - General Adult General Chief complaint: Cough Stated complaint: Cough, arthritis pain Time Seen by Provider: 08/20/22 02:52 Source: patient and family Mode of arrival: ambulatory Limitations: language barrier (Family declined electric razor mechanic, son acts as electric razor mechanic.) History of Present Illness HPI narrative: 67-year-old female presents to the emergency department with her son. She has had a cough for 1 month. It sounds as though she was evaluated by her primary care provider about a week ago. She was started on an inhaler. It sounds as though they ordered a CT scan of the chest which is to be performed tomorrow. I am uncertain of what the reason for the CT was, it does not sound like a chest x-ray was done. Unfortunately, this was done at [facility] and I do not have access to those records. Patient has had no fever, there has been no hemoptysis. She has had a little bit of clear phlegm. The inhaler does not seem to be helping. The cough is bothersome, prevent in her from sleeping. She has not tried any cough syrups or gbem-ylj-wyzogly medications. She has not tried sleep aids like Benadryl, melatonin, etc.. She does have a history of rheumatoid arthritis. Is complaining of widespread increased joint pain. Review of the records shows that she gets seen in our emergency department a few times a year for this. It looks as though she typically responds to a prednisone burst. When I ask if they have prednisone on hand for burst doses, it sounds like there confused by high am asking the question as she is on a low-dose of prednisone daily for suppressive reasons, but I can gather is they have not tried taking extra prednisone for this flare. The pain is been more bothersome over the last 2 days. She does not take anything for pain other than occasional Tylenol. No NSAIDs, she does not have access to narcotics and it does not look like she has been prescribed these in the past. No new falls, trauma or injury. No severe shortness of breath, cardiac symptoms or history of chronic lung disease. She is on immunosuppressants, methotrexate and prednisone long-term. Past medical history notable for rheumatoid arthritis, hypothyroidism. Her home medications are reviewed and accurate as listed per son. No allergies. Socially, nonsmoker. ROS is notable for the generalized, musculoskeletal and respiratory symptoms as above, otherwise denies times 12 systems. Related Data Home Medications Medication Instructions Recorded Confirmed acetaminophen 500 mg tablet (Pain 1,000 mg PO TID PRN 01/21/22 08/20/22 Relief (acetaminophen)) cholecalciferol (vitamin D3) 50 2,000 unit PO DAILY 01/21/22 08/20/22 mcg (2,000 unit) tablet diclofenac sodium 1 % topical gel 4 g topical QID 01/21/22 08/20/22 docusate sodium 100 mg capsule 100 mg PO DAILY 01/21/22 08/20/22 folic acid 1 mg tablet 1 mg PO DAILY 01/21/22 08/20/22 leflunomide 20 mg tablet 20 mg PO DAILY 01/21/22 08/20/22 levothyroxine 100 mcg tablet 100 mcg PO DAILY 01/21/22 08/20/22 meclizine 25 mg tablet 25 mg PO QID PRN 01/21/22 08/20/22 methotrexate sodium 2.5 mg tablet 2.5 mg PO QWEEK 01/21/22 08/20/22 omeprazole 20 mg capsule,delayed 20 mg PO DAILY 01/21/22 08/20/22 release prednisone 5 mg tablet 5 mg PO DAILY 01/21/22 08/20/22 albuterol sulfate 90 mcg/actuation 2 puff inhalation Q4H PRN 08/20/22 08/20/22 aerosol inhaler (Ventolin HFA) pregabalin 75 mg capsule 75 mg PO QPM 08/20/22 08/20/22 Previous Rx's Medication Instructions Recorded azithromycin 250 mg tablet 250 mg PO DAILY 6 days #6 tabs 08/20/22 prednisone 20 mg tablet 40 mg (2 x 20 mg) PO DAILY 4 days 08/20/22 #8 tabs Allergies Allergy/AdvReac Type Severity Reaction Status Date / Time No Known Drug Allergies Allergy Verified 08/20/22 03:07 [facility] Medical History Vitamin D deficiency ?E55.9 - Vitamin D deficiency, unspecified (ICD-10) Hypothyroidism ?E03.9 - Hypothyroidism, unspecified (ICD-10) 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) ?Z79.899 - Other intermediate designer (current) drug therapy (ICD-10) Rheumatoid arthritis ?M06.9 - Rheumatoid arthritis, unspecified (ICD-10) Surgical History No significant past surgical history Social History Smoking Status: Never smoker Do you use any of these nicotine containing products: None Second hand tobacco smoke exposure: No How often do you have a drink containing alcohol: never How often do you have six or more drinks on one occasion: Never AUDIT-C Alcohol total score: 0 Non-prescribed substance use: denies use Exam Const: Vital Signs, click to edit/add: Vital Signs - 24 hr 08/20/22 03:04 Temperature 98.5 F Pulse Rate [Right Pulse Oximeter] 89 Respiratory Rate 18 Blood Pressure [Ri ght Upper Arm] 136/69 Pulse Oximetry 97 Oxygen Delivery Me thod Room Air Documenting provider has reviewed patient's vital signs: yes Common normals: no apparent distress General appearance: cooperative and comfortable Other: Answers questions appropriately, no respiratory distress. Seems to have excellent rapport with son HENMT: Common normals: normocephalic and head/scalp atraumatic Head and scalp: normocephalic and atraumatic Face and sinus: normal facial exam Mouth: oral and palatal mucosa normal Throat: posterior oropharynx normal Eye: Common normals: conjunctivae normal General eye: normal appearance of both eyes Conjunctiva: conjunctiva(e) normal Neck & C-Spine: Common normals: full ROM and no lymphadenopathy Resp: Common normals: normal respiratory effort and no use of accessory muscles Effort & inspection: able to speak in complete sentences Other: The lungs themselves are clear to auscultation but there is some coarse upper airway sounds which do not completely clear with cough. No wheeze. Cardio: Common normals: regular rate, regular rhythm, S1 normal heart sound, S2 normal heart sound and no murmurs Rate: regular rate Rhythm: regular rhythm Heart sounds: S1 normal and S2 normal GI: Common normals: Normal to inspection, nondistended, normoactive bowel sounds present Extremity: Common normals: no pedal edema Other: Obvious deformities in hands and feet consistent with rheumatoid arthritis, ulnar deviation. I do not appreciate any redness or warmth to the knees, ankles, wrists, hands. No effusions today. No bruising or signs of obvious new injury. Psych: Activity/motor behavior: appropriate eye contact Insight: insight good Judgement: judgment good Skin: Common normals: no rashes or lesions noted General skin exam: no rashes or lesions noted Course Course Hospital Course: Differential diagnosis including pneumonia, bronchitis, upper respiratory infection, asthma, chronic lung disease from methotrexate use, rheumatoid arthritis flare, viral illness, multiple others. No hypoxia, no fever, no tachycardia, no tachypnea, no increased respiratory effort, relatively benign physical exam findings. Because of the methotrexate and duration of greater than 3 weeks, I do recommend that we try treating with antibiotics. I recommend azithromycin 500 mg will be given here in the ED, additional Z-Davon style dosing sent to pharmacy. Recommended prednisone both for the inflammation in the lungs but also for the flare of her rheumatoid arthritis. 40 mg p.o. once daily for 5 days, 1st dose given in ED. For pain, will give a 1 time dose of Vicodin. Counseled on continuing on Tylenol at home. Let them know that unfortunately most cough suppressants are not particularly helpful for this. The Phenergan/codeine products have early been taken off of the market. The hydrocodone and opiate affect will have some benefit on her sleep tonight. The medicines will kick in within a couple of days. I would like for them to continue using their albuterol inhaler especially before bed but every 4 hours as needed during the day. Keep the appointment for the CT scan as planned. Primary care follow-up if not markedly improved in 7 days. Alarm symptoms reviewed that would warrant repeat ED presentation, they verbalized understanding and agreement. Vital Signs Vital signs: Initial Vital Signs Temperature 98.5 F 08/20/22 03:04 Temperature Source Temporal Artery Scan 08/20/22 03:04 Pulse Rate 89 08/20/22 03:04 Respiratory Rate 18 08/20/22 03:04 Blood Pressure 136/69 08/20/22 03:04 Blood Pressure Mean 91 08/20/22 03:04 Blood Pressure Position Sitting 08/20/22 03:04 Pulse Oximetry 97 08/20/22 03:04 Oxygen Delivery Method Room Air 08/20/22 03:04 Vital Signs Temperature 98.5 F 08/20/22 03:04 Pulse Rate 89 08/20/22 03:04 Respiratory Rate 18 08/20/22 03:04 Blood Pressure 136/69 08/20/22 03:04 Pulse Oximetry 97 08/20/22 03:04 Oxygen Delivery Method Room Air 08/20/22 03:04 Temperature 98.5 F 08/20/22 03:04 Pulse Rate 89 08/20/22 03:04 Respiratory Rate 18 08/20/22 03:04 Blood Pressure 136/69 08/20/22 03:04 Pulse Oximetry 97 08/20/22 03:04 Oxygen Delivery Method Room Air 08/20/22 03:04 Discharge Plan Discharge Clinical Impression: Bronchitis Patient Disposition: Home w/ Parent or Adult Condition: Stable Instructions: Acute Bronchitis (ED) Additional Instructions: As we discussed, there are signs of bronchitis on exam. I do not hear any pneumonia. Oxygen levels, breathing rate and other parts of the exam look great. Because of her autoimmune condition and also because of the medicines she is on to suppress her immune system, she is more likely to have worse infections than the average person. Because of the duration of illness, I do recommend treatment with an antibiotic. She was given her 1st dose of azithromycin, a common respiratory antibiotic. You will need to machine pecan picker an additional supply your pharmacy. You will take this once daily. She will already have had her dose for today. Her next dose will be on 08/21. Follow the package instructions. Continue using the inhaler, especially before bedtime and every 4 hours as needed through the day to help with cough. Unfortunately, the cough suppressants do not help much but you are welcome to use ggtt-lyu-dzvyfuz Mucinex or guaifenesin cough syrup which are the same thing to help clear congestion. I do also think that her rheumatoid arthritis is flaring up from the illness. I have given her a dose of prednisone, 40 mg. This will be today's dose as well. I would recommend that we take 40 mg once daily for the next 5 days. occupational therapy supervisor the additional supply at your pharmacy and take this once daily as directed. Next dose will be the morning of 08/21. It is okay to take this with the antibiotic. Unfortunately it will take a couple of days for the prednisone and antibiotic to kick in. It keep the appointment for the CT scan as planned. If things have not improved markedly in a week, make a follow-up appointment with her primary care provider. Activity Level: Activity as Tolerated Discharge Diet: Regular Prescriptions: New azithromycin 250 mg tablet 250 mg PO DAILY 6 Days Qty: 6 0RF Rx Instructions: Two pills by mouth on 08/21, then 1 pill daily starting 08/22 until gone prednisone 20 mg tablet 40 mg PO DAILY 4 Days Qty: 8 0RF Rx Instructions: Begin 08/21 AM No Action albuterol sulfate [Ventolin HFA] 90 mcg/actuation HFA aerosol inhaler 2 puff INHALATION Q4H PRN pregabalin 75 mg capsule 75 mg PO QPM folic acid 1 mg tablet 1 mg PO DAILY Patient Comments: TAKE 1 TABLET BY MOUTH ONCE DAILY acetaminophen [Pain Relief (acetaminophen)] 500 mg tablet 1,000 mg PO TID PRN Patient Comments: TAKE 2 TABLETS BY MOUTH EVERY 8 HOURS NEEDED FOR MODERATE PAIN OR SCORE OF 4-6 OF 10 cholecalciferol (vitamin D3) 50 mcg (2,000 unit) tablet 2,000 unit PO DAILY Patient Comments: TAKE 1 TABLET BY MOUTH ONCE DAILY diclofenac sodium 1 % gel 4 g TOPICAL QID Patient Comments: APPLY 4 GRAMS TOPICALLY 4 TIMES DAILY TO LOWER EXTREMITIES AND 2 GRAMS TOPICALLY 4 TIMES DAILY TO UPPER EXTREMITIES docusate sodium 100 mg capsule 100 mg PO DAILY Patient Comments: TAKE 1 CAPSULE BY MOUTH ONCE DAILY leflunomide 20 mg tablet 20 mg PO DAILY levothyroxine 100 mcg tablet 100 mcg PO DAILY Patient Comments: TAKE 1 TABLET BY MOUTH ONCE DAILY meclizine 25 mg tablet 25 mg PO QID PRN Patient Comments: TAKE 1 TABLET BY MOUTH NEEDED FOR DIZZINESS methotrexate sodium 2.5 mg tablet 2.5 mg PO QWEEK omeprazole 20 mg capsule,delayed release(DR/EC) 20 mg PO DAILY prednisone 5 mg tablet 5 mg PO DAILY Patient Comments: TAKE 1 TABLET BY MOUTH ONCE DAILY Follow Up/Referrals: Provider,Not a Local [Referring] - Stand Alone Forms: [employer] Info Instructions
[2022-08-20 03:34] VITALS: TEMP 36.9
[2022-08-20] MEDS: HYDROCODONE-ACETAMIN 5-325 MG 1 TAB PO (03:34)
[2022-08-20] MEDS: AZITHROMYCIN 250 MG TABLET 500 MG PO (03:35)
[2022-08-20] MEDS: predniSONE 10 MG TABLET 40 MG PO (03:35)
[2022-08-20 03:55] VITALS: BP 125/78; PULSE 84; RESP 18; TEMP 36.9; O2SAT 97
[2022-08-20 03:57] VITALS: BP 125/78; PULSE 84; RESP 18; TEMP 36.9
== END 2022-08-20 03:58 | disposition home or self-care (01) ==
LOC: ED 03:30
PROVIDERS: Emergency Provider Family Medicine; PCP Family Medicine
DX: J40 Bronchitis, not specified as acute or chronic (principal)
CPT/HCPCS: 99283; A9270; J7512

== ENCOUNTER 2024-02-18 00:29 | Emergency (ER) | payer MEDICAID, SELFPAY ==
--- OUTSIDE RECORDS SUMMARY | 2024-02-18 00:32 | XMS_ITS | Data Portability ---
Author Organization [place] [facility], Telehealth - Home Address [address] [place] [address] Assessment No assessment recorded. Plan of Treatment Reminders Order Date Submit Date Provider Last Modified By Organization Details Last Modified Time Details Appointments None recorded. Lab None recorded. Referral physical therapist referral 2018 WILLIAM Not available 0 05:03:19 physical therapist referral 2019 WILLIAM Not available 1 05:00:48 Procedures None recorded. Surgeries None recorded. Imaging None recorded. Medication Orders ibuprofen 600 mg tablet 2018 INTERFACE [facility] [place], [address], 9 14:46:08 Vitamin D3 50 mcg (2,000 unit) tablet 2019 [facility] [address], [address] [place] [address], [address], 0 15:20:38 omeprazole 20 mg capsule,de layed release 2019 [facility] [address] [place], [address], 0 15:20:40 Patient Targets Encounter Date Encounter Id Patient Goals Patient Target Last Modified By Organization Details Last Modified Time Take medication as prescribed if symptoms does get better follow up with PCP jean marie Not available 12/10/2018 16:38:19 Patient Instructions Encounter Date Encounter Id Patient Instructions Last Modified By Organization Details Last Modified Time 12/06/20182227 back pain: care instructions jean marie Not available 12/06/2018 14:43:14 08/29/2019 [id number] Maintain a healthy weight. Excess pounds put pressure on your abdomen, pushing up your stomach and causing acid to reflux into your esophagus. Stop smoking. Smoking decreases the lower esophageal sphincter's ability to function properly. Elevate the head of your bed. If you regularly experience heartburn while trying to sleep, place wood or cement blocks under the feet of your bed so that the head end is raised by 6 to 9 inches. If you can't elevate your bed, you can insert a wedge between your mattress and box spring to elevate your body from the waist up. Raising your head with additional pillows isn't effective. Don't lie down after a meal. Wait at least three hours after eating before lying down or going to bed. Eat food slowly and chew thoroughly. Put down your fork after every bite and pick it up again once you have chewed and swallowed that bite. Avoid foods and drinks that trigger reflux. Common triggers include fatty or fried foods, tomato sauce, alcohol, chocolate, mint, garlic, onion, and caffeine. Avoid tight-fitting clothing. Clothes that fit tightly around your waist put pressure on your abdomen and the lower esophageal sphincter. jean marie Not available 09/02/2019 14:40:18 Reason for Referral Physical Therapist Referral for Osteoarthritis Referring Physician: [facility], Encounter Date: 12/06/2018 Physical Therapist Referral for Arthritis Referring Physician: Isidoro Hammonds [facility], Encounter Date: 08/29/2019 Problems Name Problem SNOMED Code Status Onset Date Resolution Date Notes Provider Name and Address Organization Details Recorded Time Aching pain 95864142 Active 019 CAREY Bob - [facility] 9 14:12:25 Arthritis 3714785 Active 019 ACREY Bob - [facility] 9 14:12:35 Problem Notes None recorded. Medical Equipment None Reported. Allergies No known drug allergies Medications Name Sig Start Date Stop Date Status Note LastModified by Organization Details LastModified Time neomycin-polymy pia-hydrocort 3.5 mg/mL-10,000 unit/mL-1 % ear solution active Not Available Not Available Not Available trazodone 50 mg tablet active Not Available Not Available Not Available azithromycin 250 mg tablet active Not Available Not Availabl e Not Available prednisone 20 mg tablet active Not Available Not Available No t Available prednisone 5 mg tablet active Not Available Not Available Not Available leflunomide 20 mg tablet active Not Available Not Available No t Available amoxicillin 500 mg tablet active Not Available Not Available No t Available levothyroxine 75 mcg tablet active Not Available Not Availabl e Not Available lorazepam 0.5 mg tablet active Not Available Not Available No t Available methotrexate sodium 2.5 mg tablet active Not Available Not Available Not Available meclizine 25 mg tablet active Not Available Not Available Not Available olopatadine 0.1 % eye drops active Not Available Not Available Not Available omeprazole 20 mg capsule,delayed release Take 1 capsule every day by oral route. 2019 active Not Available Not Available Not Avai lable folic acid 1 mg tablet active Not Available Not Available Not Available ammonium lactate 12 % topical cream active Not Available Not Availabl e Not Available capsaicin 0.025 % topical cream active Not Available Not Availa ble Not Available ibuprofen 600 mg tablet TAKE 1 TABLET BY MOUTH THREE TIMES DAILY active Not Available Not Available No t Available levofloxacin 500 mg tablet active Not Available Not Availabl e Not Available oxycodone 5 mg tablet active Not Available Not Available Not Available Oyster Shell Calcium-Vitamin D3 500 mg-5 mcg (200 unit) tablet active Not Available Not Available Not Available Pain Reliever (acetaminophen) 500 mg tablet active Not Available Not Availabl e Not Available duloxetine 60 mg capsule,delayed release active Not Available Not Available Not Available chlorhexidine gluconate 0.12 % mouthwash active Not Available Not Available Not Available diclofenac 1 % topical gel active Not Available Not Available Not Available Vitamin D3 50 mcg (2,000 unit) tablet Take 1 unit every day by oral route. 2019 active Not Available Not Available Not Avai lable Ensure Complete 0.05 gram-1.5 kcal/mL oral liquid active Not Available Not Available Not Available Vitals Date Recorded Body height Heart rate Respiratory rate Body temperature Body mass index (BMI) Body weight Oxygen saturation Oxygen saturation in Arterial blood by Pulse oximetry Systolic blood pressure Diastolic blood pressure Provider Name and Address Organization Details Last Updated DateTime 9 156.46 cm 68 /min 12 /min 97.7 [degF] 31.1 kg/m2 49753.5 2 g 94 % 94 % 138 mm[Hg] 63 mm[Hg] [facility] 9 14:11:58 Date Recorded Body height Heart rate Respiratory rate Body temperature Body mass index (BMI) Body weight Oxygen saturation Oxygen saturation in Arterial blood by Pulse oximetry Systolic blood pressure Diastolic blood pressure Provider Name and Address Organization Details Last Updated DateTime 0 156.46 cm 73 /min 12 /min 98.7 [degF] 31.9 kg/m2 65014.8 9 g 100 % 100 % 118 mm[Hg] 66 mm[Hg] [facility] 0 14:58:50 Social History None recorded. Functional Status None recorded. Mental Status None recorded. Family History Nothing Reported. Medical History No medical history recorded. Gynecological HistoryNo gynecological history recorded. Obstetrics History GPAL:G 0 P 0 0 0 0 Past Encounters Encounter ID Performer Location Encounter Start Date Encounter Closed Date Diagnosis/Indication Diagnosis SNOMED-CT Code Diagnosis ICD10 Code [id number] Isidoro Hammonds NP, S Main Office [address] [place] [place] [address] 12/06/2018 12:54:10 12/10/2018 18:46:53 Low back pain 013953739 M54.5 Osteoarthritis 458716396 M19.90 [id number] Isidoro Hammonds NP, S Main Office [address] [place] [address] 08/29/2019 14:36:10 09/02/2019 20:42:53 Aching pain 50720525 R52 Arthritis 0284142 M19.90 Gastroesop hageal reflux disease without esophagitis 513637943 K21.9 Health Concerns Section Related Observation LastModified by Organization Detai ls LastModified Time None Recorded Concern Status LastModified by Organization Details LastModified Time None Recorded Advance Directives Directive None Recorded Payers Encounter Date Sequence Insurance Name Policy Number Policy Bryant Covered Member ID Bryant Member ID Guarantor Name 12/06/2018 1 [employer] - DOS PRIOR TO 2021 (MEDICAID REPLACEMENT - HMO) FABRICE Arias [id number] 08/29/2019 1 [employer] - DOS PRIOR TO 2021 (MEDICAID REPLACEMENT - HMO) FABRICE Arias [id number] Notes Date Note Type Note Provider Name and Address Organization Details Recorded Time 12/06/2018 text/html Back PainReporte d bypatient.Location:th oracic; lumbar Quality:dull Severity:same;pain level 4/10;mild (1-4); worse compared to previous episode Duration:chronic Associated Symptoms:no weak limbs; no numbness of the legs/feet; no tingling; no incontinence; no shortness of breath; no unintentional weight loss; no night sweats; no gait instability; no bowel/bladder symptoms; no recent increase in stress;fever;chills Prior Imaging:noneFeverRepo rted bypatient.Quality:sym ptoms worse during the day Severity:highest fever:; pain/discomfort: 6/10 Duration:intermittent Context:no recent travel; no tick/insect bites; no new medications; no animal exposure; no recent surgery/procedure; no recent dental work; no IV drug use; no immunocompromise Associated Symptoms:no rash; no lethargy; no night sweats; no headache; no diarrhea; no vomiting; no palpitations; no unintentional weight loss; no lower extremity edema; no pain; no sore throat; no flank pain; no abdominal pain;cold symptoms;chills;short ness of breath;nasal congestion/discharge Isidoro Hammonds NP, [address] [place], [address], [facility] 12/10/2018 16:38:47 08/29/2019 text/html Reflux/GERDRepor yaima bypatient.Symptomshea rtburn; with acid / burning taste Severity:improving Context:non-smoker; no drug/alcohol abuse; no drug alcohol withdrawal; not related to food/drink Associated Symptoms:no feeling of fullness/mass in throat; no hoarseness; no food getting stuck; no belching/burping; not vomiting blood; no regurgitation; no shortness of breath; no chest pain; no difficulty swallowing; no pain when swallowing; no bad taste; no weight loss; no black/tarry stools; no fatigue; no throat pain; no dental erosion; no bloating; no early satiety; no halitosis;frequent coughing;nausea;vomit ing;heartburn;decreas ed appetiteNotes:gas problem + swollen body eliseo. arms. Isidoro Hammonds, FUNCTIONAL MENTAL DISABILITY TEACHER, [address] [facility], [place], [address], [facility] 09/02/2019 14:40:32 OBGyn Episode No OBEpisode recorded.
[2024-02-18 00:55] VITALS: PULSE 72; RESP 16; TEMP 36.3; O2SAT 99
--- NOTE | 2024-02-18 01:35 | ED_ITS ---
HPI - General Adult General Chief complaint: Eye Problems Stated complaint: Eye pain, recent eye surgery Time Seen by Provider: 02/18/24 00:33 Source: patient and family Limitations: language barrier (Patient asks for her adult son to interpret for for, request honored.) History of Present Illness HPI narrative: 68-year-old female presents the emergency department with a 2 day history of irritation, redness and watering to the left eye. History of LASIK eye surgery on that eye 6 weeks ago, is using her latanoprost and brimonidine eyedrops as prescribed. No trauma or injury, no foreign body sensation. Sensitive to the light. Did not try to contact her surgeon. Son reports that they have an eye appointment 2 days from now through [facility]. Right eye is not affected, left eye was the only surgical eye. No drainage. Tender and seems to itch slightly. No prior history of similar symptoms. Past medical history notable for rheumatoid arthritis. The medications listed seem accurate per her son. The eyedrops are not listed but these are reviewed from her supply that she brings with today. Nonsmoker. ROS is notable for the eye symptoms only, otherwise denies other generalized, HEENT, skin, neurological or respiratory changes. Related Data Home Medications ?Medication ?Instructions ?Recorded ?Confirmed acetaminophen 500 mg tablet (Pain 1,000 mg PO TID PRN 01/21/22 08/20/22 Relief (acetaminophen)) cholecalciferol (vitamin D3) 50 2,000 unit PO DAILY 01/21/22 08/20/22 mcg (2,000 unit) tablet diclofenac sodium 1 % topical gel 4 g topical QID 01/21/22 08/20/22 docusate sodium 100 mg capsule 100 mg PO DAILY 01/21/22 08/20/22 folic acid 1 mg tablet 1 mg PO DAILY 01/21/22 08/20/22 leflunomide 20 mg tablet 20 mg PO DAILY 01/21/22 08/20/22 levothyroxine 100 mcg tablet 100 mcg PO DAILY 01/21/22 08/20/22 meclizine 25 mg tablet 25 mg PO QID PRN 01/21/22 08/20/22 methotrexate sodium 2.5 mg tablet 2.5 mg PO QWEEK 01/21/22 08/20/22 omeprazole 20 mg capsule,delayed 20 mg PO DAILY 01/21/22 08/20/22 release prednisone 5 mg tablet 5 mg PO DAILY 01/21/22 08/20/22 albuterol sulfate 90 mcg/actuation 2 puff inhalation Q4H PRN 08/20/22 08/20/22 aerosol inhaler (Ventolin HFA) pregabalin 75 mg capsule 75 mg PO QPM 08/20/22 08/20/22 Previous Rx's ?Medication ?Instructions ?Recorded azithromycin 250 mg tablet 250 mg PO DAILY 6 days #6 tabs 08/20/22 prednisone 20 mg tablet 40 mg (2 x 20 mg) PO DAILY 4 days 08/20/22 #8 tabs Allergies Allergy/AdvReac Type Severity Reaction Status Date / Time No Known Drug Allergies Allergy Verified 08/20/22 03:07 [facility] Medical History Vitamin D deficiency ?E55.9 - Vitamin D deficiency, unspecified (ICD-10) Hypothyroidism ?E03.9 - Hypothyroidism, unspecified (ICD-10) 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) ?Z79.899 - Other long term care administrator (current) drug therapy (ICD-10) Rheumatoid arthritis ?M06.9 - Rheumatoid arthritis, unspecified (ICD-10) Surgical History No significant past surgical history Social History Smoking Status: Never smoker Do you use any of these nicotine containing products: None Second hand tobacco smoke exposure: No How often do you have a drink containing alcohol: never How often do you have six or more drinks on one occasion: Never AUDIT-C Alcohol total score: 0 Non-prescribed substance use: denies use Exam Const: Vital Signs, click to edit/add: Vital Signs - 24 hr 02/18/24 00:55 Temperature 97.4 F L Pulse Rate [Pulse Oximeter] 72 Respiratory Rate 16 Pulse Oximetry 99 Oxygen Delivery Me thod Room Air Documenting provider has reviewed patient's vital signs: yes Common normals: no apparent distress General appearance: cooperative and well kempt Other: Photophobic with watering of the left eye. HENMT: Common normals: normocephalic Head and scalp: normocephalic Face and sinus: normal facial exam Mouth: oral and palatal mucosa normal Throat: posterior oropharynx normal Eye: Common normals: PERRL and EOMs intact bilaterally Pupil: PERRL Other: Conjunctiva are injected on left only. Right side is normal. No obvious signs of foreign body on initial exam. Sclera noninjected. Tolerates exam well. Neck & C-Spine: Common normals: full ROM and no lymphadenopathy Resp: Common normals: normal respiratory effort Effort & inspection: able to speak in complete sentences Psych: Common normals: speech normal Appearance: well kempt Activity/motor behavior: appropriate eye contact Speech: normal speech Insight: insight good Judgement: judgment good Skin: Common normals: no rashes or lesions noted General skin exam: no rashes or lesions noted Course Course ED Course: Fluorescein exam recommended. Verbal consent obtained. Two drops of tetracaine and fluorescein are placed into the eye with good tolerance. Corneal abrasion right at the center of the cornea, down slightly from midline at the 6 o'clock position is noted, size seems to correlate with her eye dropper bottle. No signs of foreign body noted. I as then rinsed with saline and erythromycin eye ointment is placed. Patient family counseled on findings. Suspect the corneal abrasion is the source of her discomfort. Does not seem consistent with acute glaucoma, diagnosis considered. Patient did feel much better with the tetracaine drops. Will give ibuprofen 600 mg p.o. x1, okay to use [id number] sleep aids as needed. Will continue on the erythromycin ointment. Keep eye appointment for as planned to ensure that things are improving. Please bring the accompanying discharge paperwork to the appointment for that provider. Things should improve markedly within 48 hours. Alarm symptoms reviewed that would warrant ED presentation. Written instructions provided. Vital Signs Vital signs: Initial Vital Signs Temperature 97.4 F L 02/18/24 00:55 Temperature Source Temporal Artery Scan 02/18/24 00:55 Pulse Rate 72 02/18/24 00:55 Respiratory Rate 16 02/18/24 00:55 Pulse Oximetry 99 02/18/24 00:55 Oxygen Delivery Method Room Air 02/18/24 00:55 Vital Signs Temperature 97.4 F L 02/18/24 00:55 Pulse Rate 72 02/18/24 00:55 Respiratory Rate 16 02/18/24 00:55 Pulse Oximetry 99 02/18/24 00:55 Oxygen Delivery Method Room Air 02/18/24 00:55 Temperature 97.4 F L 02/18/24 00:55 Pulse Rate 72 02/18/24 00:55 Respiratory Rate 16 02/18/24 00:55 Pulse Oximetry 99 02/18/24 00:55 Oxygen Delivery Method Room Air 02/18/24 00:55 Discharge Plan Discharge Clinical Impression: Corneal abrasion Patient Disposition: Home w/ Parent or Adult Condition: Stable Instructions: Corneal Abrasion (DC) Additional Instructions: As we discussed, there is a scratch on the left cornea, front surface of the eyeball. These can be very painful. They tend to cause a headache, sensitivity to light, eye discharge. I think that this is the reason for your discomfort. This was probably caused by your eye drop but is thankfully not dangerous. I do not see any signs of a foreign body or a complication from the surgery. Please keep your eye appointment for 2 days from now. In the meantime, I would like for you to use the erythromycin ointment 3 times daily (/4 to 1/2 strip) for the next 3-4 days. For most people, things feel dramatically better after 48 hours. Please contact your eye doctor if things are not improving. Especially call the eye doctor if you have significant vision changes, high fever or other worsening. It is okay to use Tylenol 1000 mg every 6 hours and or ibuprofen 600 mg every 6 hours for discomfort. Activity Level: No Restrictions Discharge Diet: Regular Prescriptions: No Action albuterol sulfate [Ventolin HFA] 90 mcg/actuation HFA aerosol inhaler 2 puff INHALATION Q4H PRN pregabalin 75 mg capsule 75 mg PO QPM azithromycin 250 mg tablet 250 mg PO DAILY 6 Days Qty: 6 0RF Rx Instructions: Two pills by mouth on 08/21, then 1 pill daily starting 08/22 until gone prednisone 20 mg tablet 40 mg PO DAILY 4 Days Qty: 8 0RF Rx Instructions: Begin 08/21 AM folic acid 1 mg tablet 1 mg PO DAILY Patient Comments: TAKE 1 TABLET BY MOUTH ONCE DAILY acetaminophen [Pain Relief (acetaminophen)] 500 mg tablet 1,000 mg PO TID PRN Patient Comments: TAKE 2 TABLETS BY MOUTH EVERY 8 HOURS NEEDED FOR MODERATE PAIN OR SCORE OF 4-6 OF 10 cholecalciferol (vitamin D3) 50 mcg (2,000 unit) tablet 2,000 unit PO DAILY Patient Comments: TAKE 1 TABLET BY MOUTH ONCE DAILY diclofenac sodium 1 % gel 4 g TOPICAL QID Patient Comments: APPLY 4 GRAMS TOPICALLY 4 TIMES DAILY TO LOWER EXTREMITIES AND 2 GRAMS TOPICALLY 4 TIMES DAILY TO UPPER EXTREMITIES docusate sodium 100 mg capsule 100 mg PO DAILY Patient Comments: TAKE 1 CAPSULE BY MOUTH ONCE DAILY leflunomide 20 mg tablet 20 mg PO DAILY levothyroxine 100 mcg tablet 100 mcg PO DAILY Patient Comments: TAKE 1 TABLET BY MOUTH ONCE DAILY meclizine 25 mg tablet 25 mg PO QID PRN Patient Comments: TAKE 1 TABLET BY MOUTH NEEDED FOR DIZZINESS methotrexate sodium 2.5 mg tablet 2.5 mg PO QWEEK omeprazole 20 mg capsule,delayed release(DR/EC) 20 mg PO DAILY prednisone 5 mg tablet 5 mg PO DAILY Patient Comments: TAKE 1 TABLET BY MOUTH ONCE DAILY Follow Up/Referrals: Corry Barnett MD [Primary Care Provider] - Stand Alone Forms: [facility] Instructions
== END 2024-02-18 02:16 | disposition home or self-care (01) ==
LOC: ED 01:25
PROVIDERS: Emergency Provider Family Medicine; PCP Family Medicine
DX: S05.02XA Injury of conjunctiva and corneal abrasion without foreign body, left eye, initial encounter (principal)
CPT/HCPCS: 99283; A9270

== ENCOUNTER 2025-01-26 08:39 | Emergency (ER) | payer MEDICARE, MEDICAID, SELFPAY ==
--- OUTSIDE RECORDS SUMMARY | 2025-01-20 14:30 | XMS_ITS | Encounter Summary ---
Author Organization [facility] Address [address] [place] [address] Care Team Providers Care Flight Engineer Instructor Name Role Phone Geno Pradhan P.A.-C. Primary Care Provider Reason for Referral * Outpatient (Routine) - Authorized Specialty Diagnoses / Procedures Referred By Contmavercik t Referred To Contact Diagnoses Rheumatoid Arthritis With Rheumatoid 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 Organ Or Systems Involvement (HCC) High Risk Medication Magnolia Reyna APRN, C.N.P., D.N.P. [address] [place] [address] Phone: tel: fax: [facility] Referral ID Status Reason Start Date Expiration Date V isits Requested Visits Authorized [id number] Authorized 01/20/2025 07/22/2026 1 1 RANCE APPRAISER * Outpatient (Routine) - Authorized Specialty Diagnoses / Procedures Referred By Contac t Referred To Contact Rheumatology Magnolia Reyna APRN, C.N.P., D.N.P. [address] [place] [address] Phone: tel: fax: [facility] Referral ID Status Reason Start Date Expiration Date V isits Requested Visits Authorized [id number] Authorized 01/20/2025 07/22/2026 1 1 RANCE APPRAISER Reason for Visit * Outpatient (Routine) - Canceled Specialty Diagnoses / Procedures Referred By Contmaverick t Referred To Contact Rheumatology Cody Lucas M.B.BSheltonSShelton [address] [place] [address] Phone: tel: fax: [facility] Referral ID Status Reason Start Date Expiration Date V isits Requested Visits Authorized [id number] Canceled 08/26/2023 02/24/2025 1 1 Encounter Details Date Type Department Care Team (Latest Contact Info) Description 01/20/2025 2:30 PM INSURANCE APPRAISER Office Visit Division of Rheumatology in [place], [place] [address] [place] [phone] Magnolia Reyna APRN, C.N.P., D.N.P. [address] [place] [phone] Rheumatoid Arthritis With Rheumatoid 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 Organ Or Systems Involvement (HCC) (Primary Dx); Nodule Rheumatoid (HCC); High Risk Medication; Tuberculosis Latent Social History Tobacco Use Types Packs/Day Years Used Date Smoking Tobacco: Never Smokeless Tobacco: Never Alcohol Use Standard Drinks/Week Comments No 0 (1 standard drink = 0.6 oz pur e alcohol) Humiliation, Afraid, Rape, and Kick questionnair e Answer Date Recorded Within the last year, have y ou been afraid of your partner or ex-partner? No 03/26/2022 Within the last year, have y ou been humiliated or emotionally abused in other ways by your partner or ex-partner? No Within the last year, have y ou been kicked, hit, slapped, or otherwise physically hurt by your partner or ex-partner? No 03/26/2022 Within the last year, have y ou been raped or forced to have any kind of sexual activity by your partner or ex-partner? No 03/26/2022 Hunger Vital Sign Answer Date Recorded Within the past 12 months, y ou worried that your food would run out before you got the money to buy more. Patient declined Ran Out of Food in the Last Year Not on file 03/26/2022 PRAPARE - Transportation Answer Date Re corded Lack of Transportation (Medical) No 09/18/2018 Lack of Transportation (Non-Medical) No 09/18/2018 Housing Stability Vital Sign Answer Colin e Recorded In the last 12 months, was t here a time when you were not able to pay the mortgage or rent on time? No 03/26/2022 In the last 12 months, how many places have you lived? 2 03/26/2022 In the last 12 months, was t here a time when you did not have a steady place to sleep or slept in a skilled nursing (including now)? No 03/26/2022 Depression Answer Date Recor ded PHQ-9 Total Score (max 27) 0 01/12 Education Answer Date Recorded What is the highest level of school you have completed or the highest degree you have received? 1st grade 09/18/2018 Comments No Sex and Gender Information Value Date Recorded Sex Assigned at Not on file Legal Sex Female 9:25 AM INSURANCE APPRAISER Gender Identity Female 02/20/2018 2:45 PM INSURANCE APPRAISER Sexual Orientation Not on file documented as of this encounter Last Filed Vital Signs Vital Sign Reading Time Taken Comments Blood Pressure 130/79 01/20/2025 2:27 PM INSURANCE APPRAISER Pulse 68 01/20/2025 2:27 PM INSURANCE APPRAISER Temperature 36 C (96.8 F) 01/20/2025 2:27 PM INSURANCE APPRAISER Respiratory Rate - - Oxygen Saturation - - Inhaled Oxygen Concentration - - Weight 85.3 kg (188 lb 0.8 oz) 01/20/2025 2:27 P M INSURANCE APPRAISER Height - - Body Mass Index 35.5 10/08/2024 12:46 PM CDT documented in this encounter Progress Notes * Magnolia Reyna APRN, C.N.P., D.N.P. - 01/20/2025 2:30 PM CST SUBJECTIVE CHIEF COMPLAINT / REASON FOR VISIT Althea Arias is a 69 y.o. female who presents for follow up of rheumatoid arthritis. Visit conducted with the assistance of a Maltese vp digital marketing in the office. Patient is accompanied by her son. HISTORY OF PRESENT ILLNESS Althea is a 69-year-old female who presents for follow-up of rheumatoid arthritis. She has previously followed by Dr. Alvarez, Dr. Monzon, Patrice Velez, Perry Arana and most recent Dr. Lucas. She has had active rheumatoid arthritis. She has been on prednisone, methotrexate, Arava. Hydroxychloroquine was ultimately discontinued due to lapse in eye exams. She has not been on biologics predominantly due to history of tuberculosis. Reportedly, she has been treated for this per her initial consult note in June 2009 though we do not have the paperwork on record. She was seen by ID in 2022,started on rifampin and then switched to INH therapy. She worked with county to complete the INH. Having completed rifampin, Infectious Disease did clear her to begin biologic therapies (noted from 08/16/2022). She was most recently seen by Dr. Lucas in August 2023. At that time, she was advised to start Remicade infusions, continue methotrexate and low dose prednisone. The Arava was discontinued. He recommended checking a double- stranded DNA at her follow-up visit to exclude drug-induced lupus with Remicade. He also recommended hand therapy, updating DEXA scan with her PCP, and ensuring vaccinations [id number] Today, Althea reports her pain has not been controlled. Pain located everywhere including her hands, elbows, and knees. The pain is worse at night and in the morning. Needs to crawl initially untilstiffness improves. She is unable to quantify the duration of stiffness. She has been seen multiple times in the ED. There have been times she stops the methotrexate and prednisone because she feels the medications are too strong and causing damage to her body. She doesnot set up her own medications, so we could not confirm the specific medications she is taking. Shebelieves she is taking methotrexate 20 mg every week to every other week. She was taking folic aciduntil she ran out of the prescription. She is taking prednisone 5 mg daily. Rheumatoid Arthritis Current Symptoms: dry mouth, fatigue, edema and subcutaneous nodules Current Symptoms: eyes not dry, no fever, no rash, no weight loss, no cough, no chest pain, no nausea, no vomiting, no abdominal pain, no anorexia, no chills, no night sweats, no oral ulcers, no eye inflammation, no heartburn and no dyspnea Previous Reports Reviewed:lab reports, office notes, and radiology reports The following portions of the patient's history were reviewed and updated as appropriate: allergies, current medications, family history, medical history, social history, surgical history, and problem list. REVIEW OF SYSTEMS Pertinent positives and negatives as documented in the above history of present illness. Constitutional: Positive for fatigue. - Negative for chills, fever, night sweats and weight loss. Skin: - Negative for skin rash. Respiratory: - Negative for coughing. Cardiovascular: - Negative for chest pain, pressure or tightness. Gastrointestinal: - Negative for abdominal (belly) pain or cramping, anorexia, heartburn, nausea and vomiting. OBJECTIVE PHYSICAL EXAM Constitutional General: She is not in acute distress. Appearance: Normal appearance. She is well-developed. HENT Right Ear: External ear normal. Left Ear: External ear normal. Nose: Nose normal. No congestion or rhinorrhea. Mouth/Throat: Mouth: Mucous membranes are moist. No oral lesions. Dentition: No gum lesions. Palate: No lesions. Pharynx: No oropharyngeal exudate or posterior oropharyngeal erythema. Eyes Conjunctiva/sclera: Conjunctivae normal. Pupils: Pupils are equal, round, and reactive to light. Cardiovascular Rate and Rhythm: Normal rate and regular rhythm. Heart sounds: Normal heart sounds. No murmur heard. Pulmonary Effort: Pulmonary effort is normal. No respiratory distress. Breath sounds: Normal breath sounds. Abdominal Palpations: Abdomen is soft. Tenderness: There is no abdominal tenderness. Musculoskeletal Right elbow: Deformity present. Tenderness present. Left elbow: Deformity present. Tenderness present. Right wrist: Deformity and tenderness present. Left wrist: Deformity and tenderness present. Right hand: Swelling and deformity present. Decreased range of motion. Left hand: Swelling and deformity present. Decreased range of motion. Comments: Bilateral hands with subluxation of the wrists and 2nd-4th MCP joints, ulnar deviation ofthe fingers. Mild synovitis appreciated in the 2nd-5th MCP joints. Nodules located on several MCP and PIP joints, nodules on bilateral elbows. She is able to make a fist in both hands, positive prayer sign Lymphadenopathy Cervical: No cervical adenopathy. Skin General: Skin is warm. Capillary Refill: Capillary refill takes less than 2 seconds. Coloration: Skin is not jaundiced. Neurological General: No focal deficit present. Mental Status: She is alert and oriented to person, place, and time. DIAGNOSTICS Lab: Obtained in December show mild anemia with hemoglobin of 11.8, hematocrit 37.8, MCV 88, normal platelet count, leukocytes, neutrophils, monocytes, basophils, and eosinophils. ESR is 40, CRP 3.6. Normal creatinine. Last AST and ALT were normal in August 2023. Imaging: Radiographs obtained 08/23/2023 EXAM: DX HAND BILATERAL 3+ VIEWS IMPRESSION: Demineralization. Periarticular soft tissue swelling, most prominent about bilateral first and second MCP joints. Scattered erosive changes in both hands, most prominent involving bilateral second MCP joints, progressed since 09/26/2018. Mild lateral subluxations at the right second-fifth MCP joints, new from the prior exam. Bilateral ulnarpositive variance. EXAM: DX FOOT BILATERAL 3+ VIEWS IMPRESSION: Erosive changes at multiple bilateral MTP joints which have progressed since 03/28/17. Stable prominent erosion at the base of the right great toe distal phalanx. Mild lateral subluxations at multiplebilateral MTP joints, new. Bilateral calcaneal spurs. Bilateral hindfoot valgus and pes planus. Probable bone infarct in the right distal tibia. 03/22/2021 03/26/2022 12/03/2022 01/20/2025 Tender joint count (0-28) 26 24 22 26 Swollen joint count (0-28) 4 6 7 8 Patient global assessment (0-100) -- 99 -- -- Health Navigator global assessment (0-100) -- -- 60 -- ESR (mm/h) -- 20 24 -- CRP (mg/L) -- 23.9 17.7 -- Disease Activity Score 28 using ESR ([id number]) -- 6.91 -- -- Disease Activity Score 28 using CRP ([id number]) -- 6.93 -- -- Clinical Disease Activity Index (CDAI) -- -- -- -- Simplified Disease Activity Index (SDAI) -- -- -- -- ASSESSMENT / PLAN #1 Rheumatoid Arthritis With Rheumatoid 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 Organ Or Systems Involvement (HCC) - methotrexate (TrexalL) 2.5 mg tablet; Take 8 tablets (20 mg total) by mouth once a week., Starting Sat01/20/2025, Normal - folic acid 1 mg tablet; Take 1 tablet (1,000 mcg total) by mouth daily., Starting Sat01/20/2025,Normal - predniSONE (Deltasone) 5 mg tablet; Take 1 tablet (5 mg total) by mouth daily., Starting Sat01/20/2025, Normal - CBC with Differential, Blood; Future; Expected date: 01/20/2025 - Sedimentation Rate; Future; Expected date: 01/20/2025 - CRP (C-Reactive Protein); Future; Expected date: 01/20/2025 - AST (Aspartate Aminotransferase); Future; Expected date: 01/20/2025 - ALT (Alanine Aminotransferase); Future; Expected date: 01/20/2025 - Creatinine with Estimated GFR; Future; Expected date: 01/20/2025 #2 Nodule Rheumatoid (HCC) #3 Tuberculosis Latent Other orders - Rheumatology office visit (clinic); Future; Expected date: 04/22/2025 - acetaminophen tablet 650 mg (TylenoL); 650 mg, oral, Once, On Sat01/20/25 at 1645, For 1 dosePrior to each dose of infliximab. - diphenhydrAMINE capsule 25 mg (BenadryL); 25 mg, oral, Once, On Sat01/20/25 at 1645, For 1 dosePrior to each dose of infliximab. - inFLIXimab-abda 420 mg in NaCl 0.9% IVPB (Renflexis); 420 mg (rounded from 426.5 mg = 5 mg/kg ?? 85.3 kg), intravenous, Once, On Sat01/20/25 at 1645, For 1 dose Use dedicated IV line for the infusion; Use an sterile, non-pyrogenic, low protein-binding filter with 1.2 micron pore size or less. Adults requiring tapered infusion: Initiate infusion at 10 mL/hour for 15 minutes; THEN with each subsequent change in rate, remove the dose from the dose field and only document the rate. Increase to 20 mL/hour for 15 minutes; THEN, Increase to 40 mL/hour for 15 minutes; THEN, Increase to 80 mL/hour for 15 minutes; THEN, Increase to 150 mL/hour for 30 minutes; THEN, Increase to 250 mL/hour until infusion complete. IF AUTHORIZED AND PATIENT HAS TOLERATED 3 TAPERED INFUSIONS AT THE SAME DOSE, ACCELERATED INFUSION MAY BE CONSIDERED Adults accelerated infusion rate (over 1 hour): For doses lessthan or equal to 1000 mg (in 250 ml NS): Initiate infusion at 100 mL/hour for 15 minutes; if tolerated then increase to 300 mL/hour until infusion complete. For doses greater than 1000 mg (in 500 ml N S): Initiate infusion at 200 mL/hour for 15 minutes; if tolerated then increase to 600 mL/hour until infusion complete. Final concentration should be between 0.4-4 mg/mL.Restriction Criteria (Pharmacy will review and approve if criteria met): Authorized by Gastroenterology, Rheumatology, Dermatology or Hematology Oncology - inFLIXimab-abda 420 mg in NaCl 0.9% IVPB (Renflexis); 420 mg (rounded from 426.5 mg = 5 mg/kg ?? 85.3 kg), intravenous, Once, On Sat01/20/25 at 1645, For 1 dose Use dedicated IV line for the infusion; Use an sterile, non-pyrogenic, low protein-binding filter with 1.2 micron pore size or less. Adults requiring tapered infusion: Initiate infusion at 10 mL/hour for 15 minutes; THEN with each subsequent change in rate, remove the dose from the dose field and only document the rate. Increase to 20 mL/hour for 15 minutes; THEN, Increase to 40 mL/hour for 15 minutes; THEN, Increase to 80 mL/hour for 15 minutes; THEN, Increase to 150 mL/hour for 30 minutes; THEN, Increase to 250 mL/hour until infusion complete. IF AUTHORIZED AND PATIENT HAS TOLERATED 3 TAPERED INFUSIONS AT THE SAME DOSE, ACCELERATED INFUSION MAY BE CONSIDERED Adults accelerated infusion rate (over 1 hour): For doses lessthan or equal to 1000 mg (in 250 ml NS): Initiate infusion at 100 mL/hour for 15 minutes; if tolerated then increase to 300 mL/hour until infusion complete. For doses greater than 1000 mg (in 500 ml N S): Initiate infusion at 200 mL/hour for 15 minutes; if tolerated then increase to 600 mL/hour until infusion complete. Final concentration should be between 0.4-4 mg/mL.Restriction Criteria (Pharmacy will review and approve if criteria met): Authorized by Gastroenterology, Rheumatology, Dermatology or Hematology Oncology - inFLIXimab-abda 420 mg in NaCl 0.9% IVPB (Renflexis); 420 mg (rounded from 426.5 mg = 5 mg/kg ?? 85.3 kg), intravenous, Once, On Sat01/20/25 at 1645, For 1 dose Use dedicated IV line for the infusion; Use an sterile, non-pyrogenic, low protein-binding filter with 1.2 micron pore size or less. Adults requiring tapered infusion: Initiate infusion at 10 mL/hour for 15 minutes; THEN with each subsequent change in rate, remove the dose from the dose field and only document the rate. Increase to 20 mL/hour for 15 minutes; THEN, Increase to 40 mL/hour for 15 minutes; THEN, Increase to 80 mL/hour for 15 minutes; THEN, Increase to 150 mL/hour for 30 minutes; THEN, Increase to 250 mL/hour until infusion complete. IF AUTHORIZED AND PATIENT HAS TOLERATED 3 TAPERED INFUSIONS AT THE SAME DOSE, ACCELERATED INFUSION MAY BE CONSIDERED Adults accelerated infusion rate (over 1 hour): For doses lessthan or equal to 1000 mg (in 250 ml NS): Initiate infusion at 100 mL/hour for 15 minutes; if tolerated then increase to 300 mL/hour until infusion complete. For doses greater than 1000 mg (in 500 ml N S): Initiate infusion at 200 mL/hour for 15 minutes; if tolerated then increase to 600 mL/hour until infusion complete. Final concentration should be between 0.4-4 mg/mL.Restriction Criteria (Pharmacy will review and approve if criteria met): Authorized by Gastroenterology, Rheumatology, Dermatology or Hematology Oncology - acetaminophen tablet 650 mg (TylenoL); 650 mg, oral, Once as needed, for infusion reaction, Starting on Sat01/20/25 at 1621, For 1 dose Overall, seropositive rheumatoid arthritis with nodulosis is not controlled. She did not follow through with treatment plan recommended by last psychotherapist social worker, Dr. Lucas. She has been inconsistent taking the methotrexate and even prednisone. She is agreeable to taking both of these medications on a regular basis as prescribed. She has been cleared by Infectious Disease to proceed with a biologicmedication. We again discussed starting a TNF inhibitor and after consideration with her son, she has decided to proceed with Remicade infusions in [place]. We spent time reviewing the side effects of infliximab including infusion reaction, increased risk of infection, and malignancy. We discussed the following \plan: Continue methotrexate 20 mg once weekly with daily folic acid 1 mg and prednisone 5 mg daily. Refills provided today. Start Remicade or bio similar infusions, closest infusion center for patient is an [place]. If shestarts these infusions, Dr. Lucas recommended we check a dsDNA at her next visit to exclude drug-induced lupus with Remicade given her history of positive FREDDY. Obtain labs today including CBC, creatinine, ALT, AST, CRP, and ESR. Will enroll Althea in our nurse monitoring protocol for methotrexate monitoring. Will require CBC with differential, creatinine, and AST every three months while taking methotrexate. Follow-up in 3 months. RANCE APPRAISER documented in this encounter Plan of Treatment Scheduled Referrals Name Type Priority Associated Diagnoses Orde r Schedule Rheumatology office visit (clinic) Outpatient Referral Routine Expected: 04/22/2025, Expires: 04/22/2026 Medication monitoring Outpatient Referral Routine Rheumatoid Arthritis With Rheumatoid 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 Organ Or Systems Involvement (HCC) High Risk Medication Expected: 01/20/2025 (Approximate), Expires: 01/20/2027 documented as of this encounter Results * Creatinine with Estimated GFR (01/21/2025 2:41 PM INSURANCE APPRAISER) Creatinine 0.75 0.59 - 1.04 mg/dL 01/21/2025 6:12 PM INSURANCE APPRAISER OWAT Estimated GFR (eGFR) 87 >=60 mL/min/BSA 01/21/2025 6:12 PM INSURANCE APPRAISER OWAT Comment: Estimated GFR calculated using the 2020 CKD_EPI creatinine equation. Blood (Blood, Venous) 01/21/2025 2:41 PM INSURANCE APPRAISER 01/21/2025 5:37 PM INSURANCE APPRAISER us Magnolia Reyna APRN, C.N.P., D.N.P. LAB BLOOD ADD -ON Final Result [facility] [address] [place] [address], [place] [facility] [place] [address] [place] [address] * ALT (Alanine Aminotransferase) (01/21/2025 2:41 PM INSURANCE APPRAISER) Alanine Aminotransferase (ALT), P 10 7 - 45 U/L 01/21/2025 6:12 PM INSURANCE APPRAISER OWAT Blood (Blood, Venous) 01/21/2025 2:41 PM INSURANCE APPRAISER 01/21/2025 5:37 PM INSURANCE APPRAISER Magnolia Reyna APRN, C.N.P., D.N.P. LAB BLOOD ADD -ON Final Result Performing Organization Address City/[facility]/ZIP Co de Phone Number [facility] [address] [place] [address], [facility] in [place] [address] [place] [address] * AST (Aspartate Aminotransferase) (01/21/2025 2:41 PM INSURANCE APPRAISER) Aspartate Aminotransferase (AST), P 15 8 - 43 U/L 01/21/2025 6:12 PM INSURANCE APPRAISER OWAT Blood (Blood, Venous) 01/21/2025 2:41 PM INSURANCE APPRAISER 01/21/2025 5:37 PM INSURANCE APPRAISER us Magnolia Reyna APRN, C.N.P., D.N.P. LAB BLOOD ADD -ON Final Result [facility] [address] [place] [address], [facility] in [place] [address] [place] [address] * (ABNORMAL) CRP (C-Reactive Protein) (01/21/2025 2:41 PM INSURANCE APPRAISER) C-Reactive Protein (CRP), P 26.0(H) <5.0 mg/L 01/21/2025 6:12 PM INSURANCE APPRAISER OWAT Blood (Blood, Venous) 01/21/2025 2:41 PM INSURANCE APPRAISER 01/21/2025 5:37 PM INSURANCE APPRAISER Magnolia Reyna APRN C.N.P., D.N.P. LAB BLOOD ADD -ON Final Result Performing Organization Address [facility]/ZIP Co de Phone Number [facility] [address] [place] [address], [place] OWAT [facility] [place] [address] [place] [address] * (ABNORMAL) Sedimentation Rate (01/21/2025 2:41 PM INSURANCE APPRAISER) Sedimentation Rate, B 40(H) 0 - 29 mm/1 h 01/21/2025 10:41 PM INSURANCE APPRAISER AUST Blood (Blood, Venous) 01/21/2025 2:41 PM INSURANCE APPRAISER 01/21/2025 10:08 PM INSURANCE APPRAISER Magnolia Reyna APRN, C.N.P., D.N.P. LAB BLOOD ADD -ON Final Result Performing Organization Address [facility] Co de Phone Number [facility] [address] [place] [address], [place] [facility] [address] [place] [address] * CBC with Differential, Blood (01/21/2025 2:41 PM INSURANCE APPRAISER) Hemoglobin 11.7 11.6 - 15.0 g/dL 01/21/2025 5:39 PM INSURANCE APPRAISER OWAT Hematocrit 36.6 35.5 - 44.9 % 01/21/2025 5:39 PM INSURANCE APPRAISER OWAT Erythrocytes 4.19 3.92 - 5.13 x10(12)/L 01/21/2025 5:39 PM INSURANCE APPRAISER OWAT MCV 87.4 78.2 - 97.9 fL 01/21/2025 5:39 PM INSURANCE APPRAISER OWAT RBC Distrib Width 14.0 12.2 - 16.1 % 01/21/2025 5:39 PM INSURANCE APPRAISER OWAT Platelet Count 262 157 - 371 x10(9)/L 01/21/2025 5:39 PM INSURANCE APPRAISER OWAT Leukocytes 5.9 3.4 - 9.6 x10(9)/L 01/21/2025 5:39 PM INSURANCE APPRAISER OWAT Neutrophils 3.56 1.56 - 6.45 x10(9)/L 01/21/2025 5:39 PM INSURANCE APPRAISER OWAT Lymphocytes 1.72 0.95 - 3.07 x10(9)/L 01/21/2025 5:39 PM INSURANCE APPRAISER OWAT Monocytes 0.51 0.26 - 0.81 x10(9)/L 01/21/2025 5:39 PM INSURANCE APPRAISER OWAT Eosinophils 0.11 0.03 - 0.48 x10(9)/L 01/21/2025 5:39 PM INSURANCE APPRAISER OWAT Basophils <0.03 0.01 - 0.08 x10(9)/L 01/21/2025 5:39 PM INSURANCE APPRAISER OWAT Blood (Blood, Venous) 01/21/2025 2:41 PM INSURANCE APPRAISER 01/21/2025 5:36 PM INSURANCE APPRAISER us Magnolia Reyna APRN, C.N.P., D.N.P. LAB BLOOD ADD -ON Final Result [facility] [address] [place] [address], [facility] OWAT [facility] [place] [address] [address] documented in this encounter Visit Diagnoses Diagnosis Rheumatoid Arthritis With Rheumatoid 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 Organ Or Systems Involvement (HCC)- Primary Nodule Rheumatoid (HCC) High Risk Medication Tuberculosis Latent documented in this encounter Additional Health Concerns Infection Onset Date Last Indicated Resolved Time Protective Environment 06/26/2022 06/26/2022 Assessment Noted Time PHQ-9 Depression Total Score: 0 01/13/20 9:06 AM INSURANCE APPRAISER documented as of this encounter Care Teams Flight Engineer Instructor Relationship Specialty Start Date End Date Geno Pradhan P.A.-C. [address] [place] [address] AvCAREY Koenig [id number] PCP - General 03/08/22 documented as of this encounter
--- OUTSIDE RECORDS SUMMARY | 2025-01-21 14:30 | XMS_ITS | Encounter Summary ---
Author Organization [facility] Address [address] [place] [address] Care Team Providers Care Accountant Controller Name Role Phone Geno Pradhan P.A.-C. Primary Care Provider Encounter Details Date Type Department Care Team (Latest Contact Info) Description 01/21/2025 2:30 PM STEEL INSPECTOR - 01/21/2025 11:59 PM STEEL INSPECTOR Hospital Encounter Department of Laboratory Medicine in [place], [place] [address] [place] [address] Magnolia Reyna APRN, C.N.P., D.N.P. [address] [place] [phone] Rheumatoid Arthritis With Rheumatoid 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 Organ Or Systems Involvement (HCC) Discharge Disposition: Home or Self Care Social History Tobacco Use Types Packs/Day Years [...] place to sleep or slept in a retirement (including now)? No 03/26/2022 Depression Answer Date Recor ded PHQ-9 Total Score (max 27) 0 01/12 Education Answer Date Recorded What is the highest level of school you have completed or the highest degree you have received? 1st grade 09/18/2018 Comments No Sex and Gender Information Value Date Recorded Sex Assigned at Not on file Legal Sex Female 9:25 AM STEEL INSPECTOR Gender Identity Female 02/20/2018 2:45 PM STEEL INSPECTOR Sexual Orientation Not on file documented as of this encounter Medications at Time of Discharge acetaminophen (acetaminophen Extra Strength) 500 mg tabletIndications :Fibromyalgia TAKE 1 TABLET BY MOUTH EVERY 8 HOURS NEEDED FOR MODERATE PAIN OR SCORE OF 4-6 OF 10 270 tablet 3 11/18/2024 albuterol (ProAir HFA) 90 mcg/actuation inhaler Inhale 2 puffs every 4 (four) hours as needed for wheezing or shortness of breath. 25.5 g 3 08/14/2022 albuterol 2.5 mg /3 mL nebulizer solution INHALE 3ML VIA A NEBULIZER EVERY 4 HOURS NEEDED 11/29/2020 ammonium lactate (AmLactin) 12 % cream Apply 1 Application topically daily. Apply to AFFECTED AREA 385 g 11 01/02/2024 celecoxib (CeleBREX) 200 mg capsule Take 200 mg by mouth 2 (two) times a day. 03/27/2021 cholecalciferol (Vitamin D3) 50 mcg (2,000 Unit) tabletIndications :Arthritis Rheumatoid (HCC) Take 1 tablet (50 mcg total) by mouth daily. 90 tablet 3 09/25/2024 Combigan 0.2-0.5 % ophthalmic solution Administer 1 drop into both eyes 2 (two) times a day. diclofenac sodium (Voltaren) 1 % gelIndications:Ar thritis Rheumatoid (HCC) APPLY 4 GRAMS TOPICALLY 4 TIMES DAILY 100 g 3 12/08/2024 docusate sodium (COLACE) 100 mg capsule Take 1 capsule (100 mg total) by mouth daily. 90 capsule 1 05/15/2021 folic acid 1 mg tabletIndications :Rheumatoid Arthritis With Rheumatoid 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 Organ Or Systems Involvement (HCC) Take 1 tablet (1,000 mcg total) by mouth daily. 90 tablet 1 01/20/2025 latanoprost (Xalatan) 0.005 % ophthalmic solution Administer 1 drop into both eyes at bedtime. levothyroxine 100 mcg tabletIndications :Hypothyroidism Acquired Take 1 tablet (100 mcg total) by mouth daily before morning meal. 90 tablet 3 09/26/2024 methotrexate (TrexalL) 2.5 mg tabletIndications :Rheumatoid Arthritis With Rheumatoid 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 Organ Or Systems Involvement (HCC) Take 8 tablets (20 mg total) by mouth once a week. 96 tablet 1 01/20/2025 nebulizer accessories kit Nebulizer, disposable neb kit x 4, reuseable neb kit x 1, mask x 1, filters x 1. Frequency of use: daily; Medication: albuterol Length of need: 99 months 11/28/2020 omeprazole (PriLOSEC) [address] capsuleIndication s:Gastroesophagea l Reflux Disease Without Esophagitis Take 1 capsule (20 mg total) by mouth daily before morning meal. 90 capsule 3 09/25/2024 prednisoLONE acetate (Pred Forte) 1 % ophthalmic suspension Administer 1 drop into the left eye 4 (four) times a day. 06/16/2024 predniSONE (Deltasone) 5 mg tabletIndications :Rheumatoid Arthritis With Rheumatoid 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 Organ Or Systems Involvement (HCC) Take 1 tablet (5 mg total) by mouth daily. 90 tablet 1 01/20/2025 Restasis 0.05 % ophthalmic emulsion Administer 1 drop into both eyes 2 (two) times a day. 09/08/2024 traMADoL (Ultram) 50 mg tabletIndications :Acute Pain Take 0.5 tablets (25 mg total) by mouth every 6 (six) hours as needed for pain Indications: Acute Pain. 6 tablet 10/08/2024 documented as of this encounter Plan of Treatment Not on file documented as of this encounter Procedures Procedure Name Priority Date/Time Associated Diagnosis Comments SEDIMENTATION RATE, B Routine 01/21/2025 2:41 PM STEEL INSPECTOR Rheumatoid Arthritis With Rheumatoid 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 Organ Or Systems Involvement (HCC) CBC WITH DIFFERENTIAL, B Routine 025 2:41 PM STEEL INSPECTOR Rheumatoid Arthritis With Rheumatoid 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 Organ Or Systems Involvement (HCC) C-REACTIVE PROTEIN (CRP), S/P Routine 01/21/2025 2:41 PM STEEL INSPECTOR Rheumatoid Arthritis With Rheumatoid 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 Organ Or Systems Involvement (HCC) ALANINE AMINOTRANSFERASE (ALT), S/P Routine 01/21/2025 2:41 PM STEEL INSPECTOR Rheumatoid Arthritis With Rheumatoid 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 Organ Or Systems Involvement (HCC) ASPARTATE AMINOTRANSFERASE (AST), S/P Routine 01/21/2025 2:41 PM STEEL INSPECTOR Rheumatoid Arthritis With Rheumatoid 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 Organ Or Systems Involvement (HCC) CREATININE WITH EGFR, S/P Routine 01/21/2025 2:41 PM STEEL INSPECTOR Rheumatoid Arthritis With Rheumatoid 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 Organ Or Systems Involvement (HCC) documented in this encounter Results * Creatinine with Estimated GFR (01/21/2025 2:41 PM STEEL INSPECTOR) Creatinine 0.75 0.59 - 1.04 mg/dL 01/21/2025 6:12 PM STEEL INSPECTOR OWAT Estimated GFR (eGFR) 87 >=60 mL/min/BSA 01/21/2025 6:12 PM STEEL INSPECTOR OWAT Comment: Estimated GFR calculated using the 2020 CKD_EPI creatinine equation. Blood (Blood, Venous) 01/21/2025 2:41 PM STEEL INSPECTOR 01/21/2025 5:37 PM STEEL INSPECTOR us Magnolia Reyna APRN, C.N.P., D.N.P. LAB BLOOD ADD -ON Final Result Performing Organization Address City/[facility]/ZIP Co de Phone Number [facility] [address] [address], [facility] in [place] [address] [place] [id number] * ALT (Alanine Aminotransferase) (01/21/2025 2:41 PM STEEL INSPECTOR) Alanine Aminotransferase (ALT), P 10 7 - 45 U/L 01/21/2025 6:12 PM STEEL INSPECTOR OWAT Blood (Blood, Venous) 01/21/2025 2:41 PM STEEL INSPECTOR 01/21/2025 5:37 PM STEEL INSPECTOR us Magnolia Reyna APRN, C.N.P., D.N.P. LAB BLOOD ADD -ON Final Result Performing Organization Address City/[facility]/ZIP Co de Phone Number [facility] [address] [place] [address], [place] OWAT [facility] [place] [address], [place] [address] * AST (Aspartate Aminotransferase) (01/21/2025 2:41 PM STEEL INSPECTOR) Aspartate Aminotransferase (AST), P 15 8 - 43 U/L 01/21/2025 6:12 PM STEEL INSPECTOR OWAT Blood (Blood, Venous) 01/21/2025 2:41 PM STEEL INSPECTOR 01/21/2025 5:37 PM STEEL INSPECTOR us Magnolia Reyna APRN C.N.P., D.N.P. LAB BLOOD ADD -ON Final Result [facility] [address] [place] [address], [place] OW[place] [facility] [place] [address] [place] [address] * (ABNORMAL) CRP (C-Reactive Protein) (01/21/2025 2:41 PM STEEL INSPECTOR) C-Reactive Protein (CRP), P 26.0(H) <5.0 mg/L 01/21/2025 6:12 PM STEEL INSPECTOR OWAT Blood (Blood, Venous) 01/21/2025 2:41 PM STEEL INSPECTOR 01/21/2025 5:37 PM STEEL INSPECTOR Magnolia Reyna APRN C.N.P., D.N.P. LAB BLOOD ADD -ON Final Result [facility] [address] [place] [address], [place] [facility] [place] [address] [place] [address] * (ABNORMAL) Sedimentation Rate (01/21/2025 2:41 PM STEEL INSPECTOR) Sedimentation Rate, B 40(H) 0 - 29 mm/1 h 01/21/2025 10:41 PM STEEL INSPECTOR AUST Blood (Blood, Venous) 01/21/2025 2:41 PM STEEL INSPECTOR 01/21/2025 10:08 PM STEEL INSPECTOR Magnolia Reyna APRN, C.N.P., D.N.P. LAB BLOOD ADD -ON Final Result [facility] [address] [place] [address], [place] [facility] [address] [place] [address] * CBC with Differential, Blood (01/21/2025 2:41 PM STEEL INSPECTOR) Hemoglobin 11.7 11.6 - 15.0 g/dL 01/21/2025 5:39 PM STEEL INSPECTOR OWAT Hematocrit 36.6 35.5 - 44.9 % 01/21/2025 5:39 PM STEEL INSPECTOR OWAT Erythrocytes 4.19 3.92 - 5.13 x10(12)/L 01/21/2025 5:39 PM STEEL INSPECTOR OWAT MCV 87.4 78.2 - 97.9 fL 01/21/2025 5:39 PM STEEL INSPECTOR OWAT RBC Distrib Width 14.0 12.2 - 16.1 % 01/21/2025 5:39 PM STEEL INSPECTOR OWAT Platelet Count 262 157 - 371 x10(9)/L 01/21/2025 5:39 PM STEEL INSPECTOR OWAT Leukocytes 5.9 3.4 - 9.6 x10(9)/L 01/21/2025 5:39 PM STEEL INSPECTOR OWAT Neutrophils 3.56 1.56 - 6.45 x10(9)/L 01/21/2025 5:39 PM STEEL INSPECTOR OWAT Lymphocytes 1.72 0.95 - 3.07 x10(9)/L 01/21/2025 5:39 PM STEEL INSPECTOR OWAT Monocytes 0.51 0.26 - 0.81 x10(9)/L 01/21/2025 5:39 PM STEEL INSPECTOR OWAT Eosinophils 0.11 0.03 - 0.48 x10(9)/L 01/21/2025 5:39 PM STEEL INSPECTOR OWAT Basophils <0.03 0.01 - 0.08 x10(9)/L 01/21/2025 5:39 PM STEEL INSPECTOR OWAT Blood (Blood, Venous) 01/21/2025 2:41 PM STEEL INSPECTOR 01/21/2025 5:36 PM STEEL INSPECTOR us Magnolia Reyna APRN, C.N.P., D.N.P. LAB BLOOD ADD -ON Final Result [facility] [address] [place] [address], [facility] OWAT [facility] [place] [address] [place] [address] documented in this encounter Visit Diagnoses Diagnosis Rheumatoid Arthritis With Rheumatoid 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 Organ Or Systems Involvement (HCC) documented in this encounter Additional Health Concerns Infection Onset Date Last Indicated Resolved Time Protective Environment 06/26/2022 06/26/2022 Assessment Noted Time PHQ-9 Depression Total Score: 0 01/13/20 9:06 AM STEEL INSPECTOR documented as of this encounter Care Teams Accountant Controller Relationship Specialty Start Date End Date Geno Pradhan P.A.-C. [address] [place] [address] C[place] LEONARD [phone] PCP - General 03/08/22 documented as of this encounter
--- OUTSIDE RECORDS SUMMARY | 2025-01-26 08:42 | XMS_ITS | Encounter Summary ---
Author Organization [facility] Address [address] [place] [address] Care Team Providers Care Executive Consultant Name Role Phone Geno Pradhan P.A.-C. Primary Care Provider Encounter Details Date Type Department Care Team (Late st Contact Info) Description 12/14/2013 Historical Ophthalmology [facility] Juan Ramon Ivy Jr., M.D. [address] [place] [address] Social History Tobacco Use Types Packs/Day Years Used Date Smoking Tobacco: Never Assessed Comments Unknown Sex and Gender Information Value Date Recorded Sex Assigned at Not on file Legal Sex Female 9:25 AM AIRCRAFT CHARTER DISPATCHER Gender Identity Female 02/20/2018 2:45 PM AIRCRAFT CHARTER DISPATCHER Sexual Orientation Not on file documented as of this encounter Progress Notes * Juan Ramon Ivy M.D. - 12/14/2013 1:03 PM CDT Eye General CHIEF COMPLAINT Complete Exam HISTORY OF PRESENT ILLNESS Pt has not been wearing her glasses as they do not work well anymore for near VA. Feels distance VAis stable. ROS good general health- heart and lungs WNL IMPRESSION / REPORT / PLAN A) Cataracts ou, soon as growing towards visual axis. P) Glasses, RTO 1 year, billed complete and refraction. CDM Reports - EYEGEN Id: [id number] Status: Fnl documented in this encounter Plan of Treatment Not on file documented as of this encounter Visit Diagnoses Not on filedocumented in this encounter Additional Health Concerns Infection Onset Date Last Indicated Resolved Time COVID19 Pending 07/15/2019 07/15/2019 07/15/2019 1 1:56 PM CDT COVID19 Comment:>30 days since initial test Danay Castillo M.D. 07/15/2019 07/15/2019 08/24/2019 9:55 AM C DT Protective Environment 06/26/2022 06/26/2022 COVID19 Pending 08/14/2022 08/14/2022 08/14/2022 2 :51 PM CDT documented as of this encounter Care Teams Executive Consultant Relationship Specialty Start Date End Date Geno Pradhan P.A.-C. [address] [place] [phone] PCP - General 03/08/22 documented as of this encounter
--- OUTSIDE RECORDS SUMMARY | 2025-01-26 08:43 | XMS_ITS | Clinical Summary ---
Author Organization [facility] Address [address] [place] [phone] Care Team Providers Care Scan Coordinator Name Role Phone [facility] Pro vider Allergies Active Allergy Reactions Criticality Noted Date Comments Unlisted Allergen (Include Detail In Comments) Runny Nose 03/01/2017 Seasonal allergies Medications methotrexate (RHEUMATREX) 2.5 mg tablet Take 2.5 mg by mouth once weekly. Take 6 tablets once a week. Active leflunomide (ARAVA) 20 mg tablet Take 20 mg by mouth once daily. Active acetaminophen (TYLENOL EXTRA STRGTH) 500 mg tabletIndications: pain Take 500 mg by mouth every 6 hours if needed. Max acetaminophen dose: 4000mg in 24 hrs. Indications: PAIN Active folic acid 1 mg tablet Take 1 mg by mouth once daily. Active hydrOXYchloroQUINE (PLAQUENIL) 200 mg tablet Take 400 mg by mouth once daily. Active docusate (COLACE) 100 mg capsuleIndications :Compression fracture Take 1 capsule by mouth 2 times daily. 30 capsule 0 06/28/19 15 Active MAPAP 325 mg tablet 08/23/19 16 Active levothyroxine (SYNTHROID) 75 mcg tablet Take 75 mcg by mouth once daily. Active DULoxetine (CYMBALTA) 60 mg Delayed-release capsule Take 60 mg by mouth once daily. Active ondansetron (ZOFRAN ODT) 4 mg disintegrating tabletIndications: Vomiting, intractability of vomiting not specified, presence of nausea not specified, unspecified vomiting type Place 1 tablet on the tongue every 8 hours if needed for Nausea/Vomiting. 10 tablet 11/06/19 18 Active rx ondansetron (ZOFRAN ODT) 4 mg orally disintegrating tablet (ED DC MED)Indications:Vo miting, intractability of vomiting not specified, presence of nausea not specified, unspecified vomiting type Take 1 tablet by mouth every 8 hours if needed. 4 tablet 11/06/19 18 Active rx albuterol HFA (PROVENTIL; VENTOLIN) (90 mcg each actuation) inhaler (ED DC MED)Indications:Vi ral URI with cough Inhale 2 Puffs by mouth 4 times daily. 1 canister 07/28/19 19 Active codeine-guaiFENesi n (ROBITUSSIN AC) 10-100 mg/5 mL liquidIndications: Cough Take 10 mL by mouth every 6 hours if needed for Cough. Max dose 60 mL per 24 hrs. 40 mL 09/23/19 21 Active NebulizerIndicatio ns:Wheezing Nebulizer, disposable neb kit x 4, reuseable neb kit x 1, mask x 1, filters x 1. Frequency of use: daily; Medication: albuterol Length of need: 99 months 1 Each 11/29/19 21 Active albuterol (PROVENTIL) 0.083 % neb solutionIndication s:Wheezing Inhale 3 mL (2.5 mg) via a nebulizer every 4 hours if needed. 90 mL 11/29/19 21 Active ondansetron (ZOFRAN ODT) 4 mg disintegrating tabletIndications: Nausea and vomiting, unspecified vomiting type Place 1 Tablet (4 mg) on the tongue every 8 hours if needed for Nausea/Vomiting. 10 Tablet 12/14/19 22 Active predniSONE (DELTASONE) 10 mg tabletIndications: Arthralgia, unspecified joint Take 1 Tablet (10 mg) by mouth once daily with a meal. 10 Tablet 03/06/19 23 Active oxyCODONE (ROXICODONE) 5 mg immediate release tabletIndications: Arthralgia, unspecified joint Take 0.5-1 Tablets (2.5-5 mg) by mouth every 6 hours if needed for Pain. 8 Tablet 03/06/19 23 Active meclizine (ANTIVERT) 25 mg tabletIndications: Peripheral vertigo, unspecified laterality Take 1 Tablet (25 mg) by mouth 3 times daily if needed for Vertigo. 30 Tablet 07/13/19 23 Active brimonidine-timolo L (COMBIGAN) 0.2-0.5 % ophthalmic solutionIndication s:Eye pain, bilateral,Open-ang le glaucoma of both eyes, unspecified glaucoma stage, unspecified open-angle glaucoma type Place 1 Drop into both eyes two times daily. 02/01/20 24 Active latanoprost (XALATAN) 0.005 % ophthalmic solutionIndication s:Open-angle glaucoma of both eyes, unspecified glaucoma stage, unspecified open-angle glaucoma type One drop to both eyes twice per day 02/01/20 24 Active cyclobenzaprine 10 mg tabletIndications: Rheumatoid arthritis flare (HC),Fibromyalgia Take 1 Tablet (10 mg) by mouth every 8 hours if needed for Muscle Spasm. 20 Tablet 07/20/19 25 Active predniSONE (DELTASONE) 20 mg tabletIndications: Rheumatoid arthritis flare (HC) Take 2 Tablets (40 mg) by mouth once daily with a meal. 10 Tablet 09/09/19 25 Active Active Problems Problem Noted Date Diagnosed Date Latent tuberculosis 06/26/2022 Overview (02/01/2024): Following with ID. 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 Rheumatoid arthritis 06/03/2009 Osteopenia 05/15/2009 Encounters Date Type Department Care Team Description 12/17/2024 8:16 PM CDT - 12/17/2024 9:35 PM CDT Emergency [address] [address] Maria G Meraz MD Rheumatoid arthritis flare (HC) (Primary Dx) Discharge Disposition: Home Self Care 12/17/2024 Travel from Last 3 Months Social History Tobacco Use Types Packs/Day Years Used Date Smoking Tobacco: Never Smokeless Tobacco: Never Tobacco Cessation:Counseling Given: Yes Alcohol Use Standard Drinks/Week Comments No 0 (1 standard drink = 0.6 oz pur e alcohol) Interpersonal Safety Answer Date Record ed Are you being hit, kicked, p ushed or yelled at (see row info)? No 12/17/2024 Interpersonal Safety Abuse 12 - 18 Not on file 12/17/2024 Interpersonal Safety Ambulatory Vulnerability No t on file 12/17/2024 Comments No Sex and Gender Information Value Date Recorded Sex Assigned at Female 09/08/2024 9:05 PM CDT Legal Sex Female 4:11 PM CENTRAL OFFICE REPAIRER SUPERVISOR Gender Identity Female 09/08/2024 9:05 PM CDT Sexual Orientation Straight 09/08/2024 9: 05 PM CDT Obstetrics History Last Filed Vital Signs Vital Sign Reading Time Taken Comments Blood Pressure 145/73 12/17/2024 9:00 PM CDT Pulse 73 12/17/2024 9:00 PM CDT Temperature 36.8 C (98.2 F) 09/08/2024 8:26 PM CDT Respiratory Rate 18 12/17/2024 8:22 PM CDT Oxygen Saturation 100% 12/17/2024 9:00 PM CDT Inhaled Oxygen Concentration - - Weight 86 kg (189 lb 9.5 oz) 12/17/2024 8:22 PM CDT Height 165.1 cm (5' 5) 12/17/2024 8:22 PM CDT Body Mass Index 31.55 12/17/2024 8:22 PM CDT Plan of Treatment Health Maintenance Due Date Last Done Comments Tetanus booster 1968 Depression screening for age 12+ 1969 BMI (ht and wt on same day) for age 18+ 1975 Hepatitis C screening for ag e 18-79 1975 Zoster (shingles) series for age 50+ (1 of 2) 1976 Colonoscopy through age 75 2002 Lipids for age 45-75 2002 Mammogram for age 45-75 2002 Pneumococcal series for age 50+ (1 of 1 - PCV) 2007 RSV vaccine for adults or (1 - Risk 50-74 years 1-dose series) 2007 DEXA/DXA scan for age 65+ 2022 Influenza Vaccine (#1) 2024 Hepatitis B series for 19+ Aged Out N o longer eligible based on patient's age to complete this topic Procedures Procedure Name Priority Date/Time Associated Diagnosis Comments CBC WITH AUTO DIFFERENTIAL STAT 12/17/2024 8:38 PM CDT SEDIMENTATION RATE STAT 12/17/2024 8: 38 PM CDT C-REACTIVE PROTEIN STAT 12/17/2024 8: 38 PM CDT BASIC METABOLIC PANEL STAT 12/17/2024 8:38 PM CDT CBC WITH AUTO DIFFERENTIAL STAT 12/17/2024 8:38 PM CDT from Last 3 Months Results * (ABNORMAL) SEDIMENTATION RATE (12/17/2024 8:38 PM CDT) Pathologist [facility] SEDIMENTATION RATE 40(H) <30 mm/hr 2024 8:46 PM CDT [facility] Blood BLOOD SPECIMEN / Unknown Venipuncture / Unknown 12/17/2024 8:38 PM CDT 12/17/2024 8:41 PM CDT us Maria G Meraz MD HEMATOLOGY Final Re sult [facility] [address] [phone] * (ABNORMAL) CBC WITH AUTO DIFFERENTIAL (12/17/2024 8:38 PM CDT) WHITE BLOOD COUNT 5.2 4.5 - 11.0 thou/cu mm 12/17/2024 8:44 PM CDT [facility] RED BLOOD COUNT 4.30 4.00 - 5.20 mil/cu mm 12/17/2024 8:44 PM CDT [facility] HEMOGLOBIN 11.8(L) 12.0 - 16.0 g/dL 12/17/2024 8:44 PM CDT [facility] HEMATOCRIT 37.8 33.0 - 51.0 % 12/17/2024 8:44 PM [facility] MCV 88 80 - 100 fL 12/17/2024 8:44 PM [facility] MCH 27.4 26.0 - 34.0 pg 12/17/2024 8:44 PM [facility] MCHC 31.2(L) 32.0 - 36.0 g/dL 12/17/2024 8:44 PM [facility] RDW 14.0 11.5 - 15.5 % 12/17/2024 8:44 PM [facility] PLATELET COUNT 229 140 - 440 thou/cu mm 12/17/2024 8:44 PM [facility] MPV 11.1(H) 6.5 - 11.0 fL 12/17/2024 8:44 PM [facility] % NEUT 59.7 % 12/17/2024 8:44 PM [facility] % LYMPH 28.2 % 12/17/2024 8:44 PM [facility] % MONO 9.6 % 12/17/2024 8:44 PM [facility] % EOS 2.3 % 12/17/2024 8:44 PM [facility] % BASO 0.2 % 12/17/2024 8:44 PM [facility] ABSOLUTE NEUTROPHILS 3.1 1.7 - 7.0 thou/cu mm 12/17/2024 8:44 PM [facility] ABSOLUTE LYMPHOCYTES 1.5 0.9 - 2.9 thou/cu mm 12/17/2024 8:44 PM [facility] ABSOLUTE MONOCYTES 0.5 <0.9 thou/cu mm 12/17/2024 8:44 PM [facility] ABSOLUTE EOSINOPHILS 0.1 <0.5 thou/cu mm 12/17/2024 8:44 PM [facility] ABSOLUTE BASOPHILS 0.0 <0.3 thou/cu mm 12/17/2024 8:44 PM [facility] Blood BLOOD SPECIMEN / Unknown Venipuncture / Unknown 12/17/2024 8:38 PM CDT 12/17/2024 8:41 PM CDT Maria G Meraz MD HEMATOLOGY Final Re sult Performing Organization Address [facility]/ZIP Co de Phone Number [facility] [address] [place] [address] * (ABNORMAL) C-REACTIVE PROTEIN (12/17/2024 8:38 PM CDT) C-REACTIVE PROTEIN 3.6(H) <0.5 mg/dL 12/17/2024 8:59 PM CDT [facility] Blood BLOOD SPECIMEN / Unknown Venipuncture / Unknown 12/17/2024 8:38 PM CDT 12/17/2024 8:41 PM CDT Maria G Meraz MD CHEMISTRY Final Re sult Performing Organization Address [facility]/ZIP Co de Phone Number [facility] [address] [place] [address] * (ABNORMAL) BASIC METABOLIC PANEL (12/17/2024 8:38 PM CDT) Pathologist [facility] SODIUM 136 136 - 145 mmol/L 12/17/2024 8:59 PM T [facility] POTASSIUM 3.9 3.5 - 5.1 mmol/L 12/17/2024 8:59 PM T [facility] CHLORIDE 102 98 - 107 mmol/L 12/17/2024 8:59 PM T [facility] CO2,TOTAL 25 22 - 29 mmol/L 12/17/2024 8:59 PM [facility] ANION GAP 9 5 - 18 12/17/2024 8:59 PM [facility] GLUCOSE 138(H) 70 - 99 mg/dL 12/17/2024 8:59 PM T [facility] CALCIUM 8.7(L) 8.8 - 10.4 mg/dL 12/17/2024 8:59 PM T [facility] Comment: Reference ranges for this test were updated on 01/07/2024 to reflect our healthy population more accurately. Reference range changes are not retroactively applied to results, but previous results using the same methodology can be interpreted in the context of the new reference range. BUN 12 8 - 23 mg/dL 12/17/2024 8:59 PM CDT [facility] CREATININE 0.54 0.50 - 0.90 mg/dL 12/17/2024 8:59 PM CDT [facility] BUN/CREAT RATIO 22(H) 10 - 20 8:59 PM CDT [facility] eGFR >90 >90 mL/min/1. 73m2 12/17/2024 8:59 PM [facility] Comment:As of 2021, eG FR is calculated by the CKD-EPI creatinine equation without race adjustment. eGFR can be influenced by muscle mass, exercise, and diet. The reported eGFR is an estimation only and is only applicable if the renal function is stable. Blood BLOOD SPECIMEN / Unknown Venipuncture / Unknown 12/17/2024 8:38 PM CDT 12/17/2024 8:41 PM CDT us Maria G Meraz MD CHEMISTRY Final Re sult [facility] [address] [place] [phone] from Last 3 Months Insurance MEDICAID [facility] LONG-TERM PLUS MEDICARE PART A HB ONLY MEDICARE PART B HB ONLY Care Teams Scan Coordinator Relationship Specialty Start Date End Date Clinic, [address] [address] PCP - General 07/19/24
--- OUTSIDE RECORDS SUMMARY | 2025-01-26 08:43 | XMS_ITS | Encounter Summary ---
Author Organization [facility] Address [address] [place] [address] Care Team Providers Care Microsoft Dynamics Manager Architect Name Role Phone Geno Pradhan P.A.-C. Primary Care Provider Encounter Details Date Type Department Care Team (Late st Contact Info) Description 01/11/2025 Clinical Communication Department of Family Medicine, [facility], in [place], [place] [address] [place] [phone] Magnolia Reyna, SOHAN, C.N.P., D.N.P. [address] [place] [phone] Social History Tobacco Use Types Packs/Day Years [...] place to sleep or slept in a senior living (including now)? No 03/26/2022 Depression Answer Date Recor ded PHQ-9 Total Score (max 27) 0 01/12 Education Answer Date Recorded What is the highest level of school you have completed or the highest degree you have received? 1st grade 09/18/2018 Comments No Sex and Gender Information Value Date Recorded Sex Assigned at Not on file Legal Sex Female 9:25 AM RN LVN Gender Identity Female 02/20/2018 2:45 PM RN LVN Sexual Orientation Not on file documented as of this encounter Plan of Treatment Not on file documented as of this encounter Visit Diagnoses Diagnosis Arthritis Rheumatoid (HCC)- Primary documented in this encounter Additional Health Concerns Infection Onset Date Last Indicated Resolved Time Protective Environment 06/26/2022 06/26/2022 Assessment Noted Time PHQ-9 Depression Total Score: 0 01/13/20 21 9:06 AM RN LVN documented as of this encounter Care Teams Microsoft Dynamics Manager Architect Relationship Specialty Start Date End Date Geno Pradhan P.A.-C. [address] [facility] [place] [phone] PCP - General 03/08/22 documented as of this encounter
--- OUTSIDE RECORDS SUMMARY | 2025-01-26 08:43 | XMS_ITS | Encounter Summary ---
Author Organization [facility] Address [address] [place] [address] Care Team Providers Care Manager Ent Name Role Phone eGno Prdahan P.A.-C. Primary Care Provider Encounter Details Date Type Department Care Team (Latest Contact Info) Description 01/22/2025 Results Follow-Up Division of Rheumatology in [place], [place] [address] [place] [phone] Magnolia Reyna, SOHAN, C.N.P., D.N.P. [address] [place] [phone] CBC with Differential, Blood, Sedimentation Rate, CRP (C-Reactive Protein), Additional followed-up results: 3 Social History Tobacco Use Types Packs/Day Years [...] place to sleep or slept in a detention (including now)? No 03/26/2022 Depression Answer Date Recor ded PHQ-9 Total Score (max 27) 0 01/12 Education Answer Date Recorded What is the highest level of school you have completed or the highest degree you have received? 1st grade 09/18/2018 Comments No Sex and Gender Information Value Date Recorded Sex Assigned at Not on file Legal Sex Female 9:25 AM DYER HELPER Gender Identity Female 02/20/2018 2:45 PM DYER HELPER Sexual Orientation Not on file documented as of this encounter Plan of Treatment Not on file documented as of this encounter Visit Diagnoses Not on filedocumented in this encounter Additional Health Concerns Infection Onset Date Last Indicated Resolved Time Protective Environment 06/26/2022 06/26/2022 Assessment Noted Time PHQ-9 Depression Total Score: 0 01/13/20 21 9:06 AM DYER HELPER documented as of this encounter Care Teams Manager Ent Relationship Specialty Start Date End Date Geno Pradhan P.A.-C. [address] [place] [phone] PCP - General 1/5/23 documented as of this encounter
--- OUTSIDE RECORDS SUMMARY | 2025-01-26 08:43 | XMS_ITS | Encounter Summary ---
Author Organization [facility] Address [address] [place] [address] Care Team Providers Care Living Advisor Name Role Phone Geno Pradhan P.A.-C. Primary Care Provider Encounter Details Date Type Department Care Team (Late st Contact Info) Description 11/10/2015 Historical Ophthalmology [facility] Juan Ramon Ivy Jr., M.D. [address] [place] [phone] Social History Tobacco Use Types Packs/Day Years Used Date Smoking Tobacco: Never Assessed Comments Unknown Sex and Gender Information Value Date Recorded Sex Assigned at Not on file Legal Sex Female 9:25 AM SALES EFFECTIVENESS MANAGER Gender Identity Female 02/20/2018 2:45 PM SALES EFFECTIVENESS MANAGER Sexual Orientation Not on file documented as of this encounter Progress Notes * Juan Ramon Ivy M.D. - 11/10/2015 9:34 AM CDT Eye General CHIEF COMPLAINT CE HISTORY OF PRESENT ILLNESS No eye troubles or concerns. Says her glasses are broken. pt seems confused, very hard to follow directions today IMPRESSION / REPORT / PLAN #1 Cortical and nuclear cataracts OS > OD New MR RTO 1 year DIAGNOSIS #1 Cortical and nuclear cataracts CDM Reports - EYEGEN Id: [id number] Status: Fnl documented in this encounter Plan [...] documented as of this encounter Care Teams Living Advisor Relationship Specialty Start Date End Date Geno Pradhan P.A.-C. [address] [place] [address] [place] [phone] PCP - General 03/08/22 documented as of this encounter
--- OUTSIDE RECORDS SUMMARY | 2025-01-26 08:43 | XMS_ITS | Encounter Summary ---
Author Organization [facility] Address [address] [place] [address] Care Team Providers Care Lead Manufacturing Engineering Tech Name Role Phone Geno Pradhan P.A.-C. Primary Care Provider Reason for Visit * Reason Comments Med Refill Encounter Details Date Type Department Care Team (Late st Contact Info) Description 01/04/2025 Refill Department of Family Medicine, [facility], in [place], [place] [address] [place] [phone] Corry Barnett M.D. [address] [place] [phone] Med Refill Social History Tobacco Use Types Packs/Day Years [...] place to sleep or slept in a usp (including now)? No 03/26/2022 Depression Answer Date Recor ded PHQ-9 Total Score (max 27) 0 01/12 Education Answer Date Recorded What is the highest level of school you have completed or the highest degree you have received? 1st grade 09/18/2018 Comments No Sex and Gender Information Value Date Recorded Sex Assigned at Not on file Legal Sex Female 9:25 AM VEHICLE SALES PROFESSIONAL Gender Identity Female 02/20/2018 2:45 PM VEHICLE SALES PROFESSIONAL Sexual Orientation Not on file documented as of this encounter Miscellaneous Notes * Telephone Encounter - Ethel Humphrey - 01/06/2025 1:02 PM CST Needs Review: Med Refill Team is unable to forward request to provider. Discrepancy: Verification Required. Medication Discontinued. Primary Provider: SHIRLEY Sharpe, P.A.-C. 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 [address] [place] [phone] PCP - General 03/08/22 documented as of this encounter
--- OUTSIDE RECORDS SUMMARY | 2025-01-26 08:43 | XMS_ITS | Encounter Summary ---
Author Organization [facility] Address [address] [place] [address] Care Team Providers Care Compressor Operator Name Role Phone Geno Pradhan P.A.-C. Primary Care Provider Encounter Details Date Type Department Care Team (Late st Contact Info) Description 01/08/2025 Clinical Communication Division of Rheumatology in [place], [place] [address] [place] [phone] Cody Lucas M.B.B.S. [address] [place] [phone] Social History Tobacco Use Types Packs/Day Years [...] place to sleep or slept in a longterm (including now)? No 03/26/2022 Depression Answer Date Recor ded PHQ-9 Total Score (max 27) 0 01/12 Education Answer Date Recorded What is the highest level of school you have completed or the highest degree you have received? 1st grade 09/18/2018 Comments No Sex and Gender Information Value Date Recorded Sex Assigned at Not on file Legal Sex Female 9:25 AM BRIDGES AND BUILDINGS SUPERVISOR Gender Identity Female 02/20/2018 2:45 PM BRIDGES AND BUILDINGS SUPERVISOR Sexual Orientation Not on file documented as of this encounter Plan of Treatment Not on file documented as of this encounter Visit Diagnoses Not on filedocumented in this encounter Additional Health Concerns Infection Onset Date Last Indicated Resolved Time Protective Environment 06/26/2022 06/26/2022 Assessment Noted Time PHQ-9 Depression Total Score: 0 01/13/20 21 9:06 AM BRIDGES AND BUILDINGS SUPERVISOR documented as of this encounter Care Teams Compressor Operator Relationship Specialty Start Date End Date Geno Pradhan P.A.-C. BRADENI: [phone] [address] [facility] [place] [phone] PCP - General 03/08/22 documented as of this encounter
--- OUTSIDE RECORDS SUMMARY | 2025-01-26 08:43 | XMS_ITS | Clinical Summary ---
Author Organization [facility] Address [address] [place] [address] Care Team Providers Care Clinical Provider Trainer Name Role Phone Geno Pradhan P.A.-C. Primary Care Provider Source Comments Patient records contain information from all sites at [facility]. For routine questions regarding patient records, call [phone] during business hours, M-F 8:00 AM - 5:00 PM Central Time. Record requests for emergency care only can be directed to [phone] at any time.[facility] Allergies No known active allergies Medications * This document contains information received from the source organization and may not represent a complete record from that organization. albuterol 2.5 mg /3 mL nebulizer solution INHALE 3ML VIA A NEBULIZER EVERY 4 HOURS NEEDED 11/30/19 21 Active nebulizer accessories kit Nebulizer, disposable neb kit x 4, reuseable neb kit x 1, mask x 1, filters x 1. Frequency of use: daily; Medication: albuterol Length of need: 99 months 11/29/19 21 Active celecoxib (CeleBREX) 200 mg capsule Take 200 mg by mouth 2 (two) times a day. 03/27/19 22 Active docusate sodium (COLACE) 100 mg capsule Take 1 capsule (100 mg total) by mouth daily. 90 capsule 1 05/16/19 22 Active albuterol (ProAir HFA) 90 mcg/actuation inhaler Inhale 2 puffs every 4 (four) hours as needed for wheezing or shortness of breath. 25.5 g 3 08/15/19 23 Active DULoxetine (Cymbalta) [address] capsule Take 1 capsule (30 mg total) by mouth daily for 14 days, THEN 2 capsules (60 mg total) daily for 14 days. 42 capsule 11/18/19 24 Active ammonium lactate (AmLactin) 12 % cream Apply 1 Application topically daily. Apply to AFFECTED AREA 385 g 11 01/02/20 24 Active Combigan 0.2-0.5 % ophthalmic solution Administer 1 drop into both eyes 2 (two) times a day. Active latanoprost (Xalatan) 0.005 % ophthalmic solution Administer 1 drop into both eyes at bedtime. Active Restasis 0.05 % ophthalmic emulsion Administer 1 drop into both eyes 2 (two) times a day. 09/09/19 25 Active prednisoLONE acetate (Pred Forte) 1 % ophthalmic suspension Administer 1 drop into the left eye 4 (four) times a day. 06/17/19 25 Active cholecalcifero l (Vitamin D3) 50 mcg (2,000 Unit) tabletIndicati ons:Arthritis Rheumatoid (HCC) Take 1 tablet (50 mcg total) by mouth daily. 90 tablet 3 09/26/19 25 Active omeprazole (PriLOSEC) [address] capsuleIndicat ions:Gastroeso phageal Reflux Disease Without Esophagitis Take 1 capsule (20 mg total) by mouth daily before morning meal. 90 capsule 3 09/26/19 25 Active levothyroxine 100 mcg tabletIndicati ons:Hypothyroi dism Acquired Take 1 tablet (100 mcg total) by mouth daily before morning meal. 90 tablet 3 09/27/19 25 Active traMADoL (Ultram) 50 mg tabletIndicati ons:Acute Pain Take 0.5 tablets (25 mg total) by mouth every 6 (six) hours as needed for pain Indications: Acute Pain. 6 tablet 10/09/19 25 Active acetaminophen (acetaminophen Extra Strength) 500 mg tabletIndicati ons:Fibromyalg ia TAKE 1 TABLET BY MOUTH EVERY 8 HOURS NEEDED FOR MODERATE PAIN OR SCORE OF 4-6 OF 10 270 tablet 3 11/19/19 25 Active diclofenac sodium (Voltaren) 1 % gelIndications :Arthritis Rheumatoid (HCC) APPLY 4 GRAMS TOPICALLY 4 TIMES DAILY 100 g 3 12/09/19 25 Active methotrexate (TrexalL) 2.5 mg tabletIndicati ons:Rheumatoid Arthritis With Rheumatoid 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 Organ Or Systems Involvement (HCC) Take 8 tablets (20 mg total) by mouth once a week. 96 tablet 1 01/21/20 25 Active folic acid 1 mg tabletIndicati ons:Rheumatoid Arthritis With Rheumatoid 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 Organ Or Systems Involvement (HCC) Take 1 tablet (1,000 mcg total) by mouth daily. 90 tablet 1 01/21/20 25 Active predniSONE (Deltasone) 5 mg tabletIndicati ons:Rheumatoid Arthritis With Rheumatoid 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 Organ Or Systems Involvement (HCC) Take 1 tablet (5 mg total) by mouth daily. 90 tablet 1 01/21/20 25 Active leflunomide (ARAVA) 20 mg tabletIndicati ons:Arthritis Rheumatoid (HCC) Take 1 tablet (20 mg total) by mouth daily. 90 tablet 07/11/19 24 025 Discontinued methotrexate 2.5 mg tabletIndicati ons:Arthritis Rheumatoid (HCC) Take 8 tablets (20 mg total) by mouth once a week. 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 History Of Falling 04/20/2020 Assessment & Plan (09/23/2024 11:35 AM CDT): Denies any recent history of falls. Disturbance Sleep 04/14/2019 Functional Incontinence Urinary 07/04/2017 Fibromyalgia 03/28/2017 Nodule Rheumatoid 01/02/2017 Hypothyroidism Acquired 01/19/2016 Assessment & Plan (09/26/2024 11:56 AM CDT): Patient presents today for medication assessment. She has a grocery bag with empty bottles and a bottle with few omeprazole, has a bottle of a methotrexate, full bottle of vitamin-D. Althea states she left some of the medications at home. - I will send her home with some Ultram to manage pain. - I will refill the omeprazole 20 mg daily, we will rechecked her TSH prior to refilling levothyroxine, - Patient to schedule follow up exam with the primary care provider. Addendum: Thyroid level 2.0, we will go ahead and refill levothyroxine. Orders: cholecalciferol (Vitamin D3) 50 mcg (2,000 Unit) tablet; Take 1 tablet (50 mcg total) by mouth daily. Thyroid Function Cheraw; Future omeprazole (PriLOSEC) [address] capsule; Take 1 capsule (20 mg total) by mouth daily before morning meal. levothyroxine 100 mcg tablet; Take 1 tablet (100 mcg total) by mouth daily before morning meal. 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 She has a grocery bag with empty bottles and a bottle with few omeprazole, has a bottle of a methotrexate, full bottle of vitamin-D. Althea states she left some of the medications at home. - I will send her home with some Ultram to manage pain. - I will refill the omeprazole 20 mg daily, we will rechecked her TSH prior to refilling levothyroxine, - Patient to schedule follow up exam with the primary care provider. Addendum: Thyroid level 2.0, we will go ahead and refill levothyroxine. Orders: cholecalciferol (Vitamin D3) 50 mcg (2,000 Unit) tablet; Take 1 tablet (50 mcg total) by mouth daily. Thyroid Function Cheraw; Future omeprazole (PriLOSEC) [address] capsule; Take 1 capsule (20 mg total) by mouth daily before morning meal. levothyroxine 100 mcg tablet; Take 1 tablet (100 mcg total) by mouth daily before morning meal. Assessment & Plan (09/23/2024 11:35 AM CDT): Patient with a history rheumatoid arthritis Presents with intermittent painful and swollen hands. Upon physical examination there is no edema of the hands. She states she is taking a medication at home for the pain does not recall the name and did take a tablet prior to presenting to clinic today. She states currently she does not have any pain. Confusion about medication regimen - Patient to follow up for medication assessment. She is instructed to bring all medications to visit for review. - Schedule follow-up appointment to review medications and perform pertinent lab tests. Osteopenia 05/15/2009 Resolved Problems Problem Noted Date Diagnosed Date Resolved Date Acculturation Difficulty 12/18/2021 Overview (04/02/2022): Diagnosis Maintenance Updates Encounters Date Type Department Care Team Description 01/22/2025 Results Follow-Up Division of Rheumatology in [place], [place] [address] [place] [address] Magnolia Reyna APRN, C.N.P., D.N.P. CBC with Differential, Blood, Sedimentation Rate, CRP (C-Reactive Protein), Additional followed-up results: 3 01/21/2025 2:30 PM PHYSICAL SECURITY ENGINEER - 01/21/2025 11:59 PM PHYSICAL SECURITY ENGINEER Hospital Encounter Department of Laboratory Medicine in [place], [place] [address] [place] [id number] Magnolia Reyna APRN, C.N.P., D.N.P. Rheumatoid Arthritis With Rheumatoid 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 Organ Or Systems Involvement (HCC) Discharge Disposition: Home or Self Care 01/20/2025 2:30 PM PHYSICAL SECURITY ENGINEER Office Visit Division of Rheumatology in [place], [place] [address] [place] [address] Magnolia Reyna APRN C.N.P., D.N.P. Rheumatoid Arthritis With Rheumatoid 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 Organ Or Systems Involvement (HCC) (Primary Dx); Nodule Rheumatoid (HCC); High Risk Medication; Tuberculosis Latent 01/11/2025 Clinical Communication Department of Family Medicine, [facility], in [place], [place] [address] [place] [address] Magnolia Reyna APRN, C.N.P., D.N.P. 01/08/2025 Clinical Communication Division of Rheumatology in [place], [place] [address] [place] [address] Cody Lucas M.B.B.S. 01/04/2025 [facility] [place], [place] [address] [place] [address] Corry Barnett M.D. Med Refill 12/24/2024 Refill Department of Community Internal Medicine in [place], [place] [address] [place] [address] Geno Pradhan P.A.-C. Med Refill 12/04/2024 Refill Department of Family [facility], in [place], [place] [address] [place] [address] Geno Pradhan P.A.-C. Med Refill 11/14/2024 Refill Department of Community Internal Medicine in [place], [place] [address] [place] [address] Geno Pradhan P.A.-C. Med Refill 11/14/2024 Refill Department of Family Medicine, [facility], in [place], [place] [address] [place] [address] Cody Lucas M.B.B.S. Med Refill 11/04/2024 Orders Only [facility] [place] P.[place].-[place]. Deficiency Estrogen Post Menopausal; Screening Mammogram Breast Cancer from Last 3 Months Immunizations Immunization Administration Dates Next Due DT, Pediatric 08/15/2005,02/15/2005,01/04/2005 HepA Adult 09/19/2017 HepA Pediatric/Adolescent 07/11/2023(Deferred: P atient decision) HepB, Unspecified 08/15/2005,02/15/2005,01/05/20 05 Influenza high dose QV(65 ye ars or older) (PF) 01/29/2023 Influenza, Unspecified 01/04/2017,2015,12/14/2014,2013,01/14/2013,01/31/2012,11/20/2010,0 03/31/2007 MCV4 (Menactra)(Discontinued) 09/19/2017 MMR 02/15/2005,01/04/2005 PCV13 09/19/2017 PPSV23 04/11/2021 RZV (SHINGRIX) 07/11/2023(Deferred: Patient dec ision) SARS-COV-2 (COVID-19) - PFIZ ER (Discontinued)(12 years or older) 07/11/2023(Deferred: Patient decision),08/27/2020,08/06/2020 SARS-COV-2 (COVID-19) - PFIZ ER TS(Discontinued)(12 years or older) 05/12/2021 Tdap 09/19/2017 TyVi (inj) 09/19/2017 JEAN 02/15/2005,01/04/2005 influenza vaccine quad (FLUZONE/FLUARIX) (6 months and older)(PF) 02/01/2022,01/12/2021,04/20/2020,2019,11/14/2017 Family History Medical History Relation Name Comments Gastroesophageal reflux disease Brother Relation Name Status Comments Brother Social History Tobacco Use Types Packs/Day Years Used Date Smoking Tobacco: Never Smokeless Tobacco: Never Tobacco Cessation:Counseling Given: Not Answered Alcohol Use Standard Drinks/Week Comments No 0 [...] place to sleep or slept in a group home (including now)? No 03/26/2022 Depression Answer Date Recor ded PHQ-9 Total Score (max 27) 0 01/12 Education Answer Date Recorded What is the highest level of school you have completed or the highest degree you have received? 1st grade 09/18/2018 Comments No Sex and Gender Information Value Date Recorded Sex Assigned at Not on file Legal Sex Female 9:25 AM PHYSICAL SECURITY ENGINEER Gender Identity Female 02/20/2018 2:45 PM PHYSICAL SECURITY ENGINEER Sexual Orientation Not on file Last Filed Vital Signs Vital Sign Reading Time Taken Comments Blood Pressure 130/79 01/20/2025 2:27 PM PHYSICAL SECURITY ENGINEER Pulse 68 01/20/2025 2:27 PM PHYSICAL SECURITY ENGINEER Temperature 36 C (96.8 F) 01/20/2025 2:27 PM PHYSICAL SECURITY ENGINEER Respiratory Rate 20 10/08/2024 12:4 6 PM CDT Oxygen Saturation 99% 07/11/2023 2:3 2 PM CDT room air with mask Inhaled Oxygen Concentration - - Weight 85.3 kg (188 lb 0.8 oz) 01/20/2025 2:27 PM PHYSICAL SECURITY ENGINEER Height 155 cm (5' 1.02) 10/08/2024 12: 46 PM CDT Body Mass Index 35.5 10/08/2024 12:46 PM CDT Plan of Treatment Health Maintenance Due Date Last Done Comments Bone Density Scan (Osteoporosis Screen) 1957 CT Colonography 1957 Cologuard 1957 Colonoscopy 1957 Zoster Vaccines (1 of 2) 04/12/2005 RSV vaccine - (32-36 weeks) or 50+ years (1 - Risk 50-74 years 1-dose series) 2007 Colorectal Cancer Screening 10/03/2018 FIT 10/03/2018 10/03/2017 Mammogram 03/28/2023 03/28/2022, 01/02, 08/18/2019, Additional history exists COVID-19 Vaccine ( - 2024- season) 2024 05/12/2021, 08/27/2020, 08/06/2020 Influenza Vaccine (#1) 2024 , 02/01/2022, 01/12/2021, Additional history exists Thyroid Stimulating Hormone (TSH) test for thyroid function 09/25/2025 09/25/2024, 08/20/2023, 02/01/2022, Additional history exists Visit: Annual, age 65+ (or Medicare and <65) 10/08/2025 10/08/2024 Pneumococcal vaccine (50+ years) (3 of 3 - PCV20 or PCV21) 04/11/2026 04/11/2021, 09/19/2017 DTaP,Tdap,and Td Vaccines (5 - Td or Tdap) 09/20/2027 09/19/2017, 08/15/2005, 02/15/2005, Additional history exists Fasting Glucose for Diabetes Screening 12/18/2027 12/17/2024, 09/08/2024, 07/19/2024, Additional history exists Varicella Vaccines Completed 02/15/2005, 01/04/2005 Cervical/Vaginal Cancer Screening Discontinued 01/12/2021, 01/12/2021, 01/19/2016, Additional history exists Hepatitis B Screening Discontinued 03/22/2021 Fall Risk Screen (Annual) Completed 09/23/2024 Depression Screening (Annual PHQ-2) Completed 09/25/2024 HPV Vaccines Aged Out No longer eligi ble based on patient's age to complete this topic IPV Vaccines Aged Out No longer eligi ble based on patient's age to complete this topic Procedures Procedure Name Priority Date/Time Associated Diagnosis Comments CREATININE WITH EGFR, S/P Routine 01/21/2025 2:41 PM PHYSICAL SECURITY ENGINEER Rheumatoid Arthritis With Rheumatoid 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 Organ Or Systems Involvement (HCC) ALANINE AMINOTRANSFERASE (ALT), S/P Routine 01/21/2025 2:41 PM PHYSICAL SECURITY ENGINEER Rheumatoid Arthritis With Rheumatoid 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 Organ Or Systems Involvement (HCC) ASPARTATE AMINOTRANSFERASE (AST), S/P Routine 01/21/2025 2:41 PM PHYSICAL SECURITY ENGINEER Rheumatoid Arthritis With Rheumatoid 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 Organ Or Systems Involvement (HCC) C-REACTIVE PROTEIN (CRP), S/P Routine 01/21/2025 2:41 PM PHYSICAL SECURITY ENGINEER Rheumatoid Arthritis With Rheumatoid 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 Organ Or Systems Involvement (HCC) SEDIMENTATION RATE, B Routine 01/21/2025 2:41 PM PHYSICAL SECURITY ENGINEER Rheumatoid Arthritis With Rheumatoid 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 Organ Or Systems Involvement (HCC) CBC WITH DIFFERENTIAL, B Routine 01/21/2025 2:41 PM PHYSICAL SECURITY ENGINEER Rheumatoid Arthritis With Rheumatoid 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 Organ Or Systems Involvement (HCC) THYROID FUNCTION CASCADE, S Routine 09/25/2024 2:50 PM CDT Hypothyroidism Acquired COMPREHENSIVE METABOLIC PANEL, S/P Routine 08/20/2023 2:25 PM CDT Arthritis Rheumatoid (HCC) BI BREAST SCREENING BILATERAL WITH TOMOSYNTHESIS RAD - Routine (most inpatients and all outpatients) 03/28/2022 1:42 PM PHYSICAL SECURITY ENGINEER Screening Mammogram High Risk Patient HEPATITIS B SURFACE ANTIGEN Routine 03/22/2021 4:39 PM PHYSICAL SECURITY ENGINEER Arthritis Rheumatoid (HCC) Nodule Rheumatoid (HCC) HPV WITH GENOTYPING, PCR, THINPREP Routine 01/12/2021 9:18 AM PHYSICAL SECURITY ENGINEER from Last 3 Months or Most Recently Relevant to Health Maintenance Results * (ABNORMAL) Sedimentation Rate (01/21/2025 2:41 PM PHYSICAL SECURITY ENGINEER) Pathologist [facility] Sedimentation Rate, B 40(H) 0 - 29 mm/1 h 01/21/2025 10:41 PM PHYSICAL SECURITY ENGINEER AUST Blood (Blood, Venous) 01/21/2025 2:41 PM PHYSICAL SECURITY ENGINEER 01/21/2025 10:08 PM PHYSICAL SECURITY ENGINEER Magnolia Reyna APRN, C.N.P., D.N.P. LAB BLOOD ADD -ON Final Result [facility] [address] [place] [address], [facility] [address] [place] [address] * CBC with Differential, Blood (01/21/2025 2:41 PM PHYSICAL SECURITY ENGINEER) Pathologist [facility] Hemoglobin 11.7 11.6 - 15.0 g/dL 01/21/2025 5:39 PM PHYSICAL SECURITY ENGINEER OWAT Hematocrit 36.6 35.5 - 44.9 % 01/21/2025 5:39 PM PHYSICAL SECURITY ENGINEER OWAT Erythrocytes 4.19 3.92 - 5.13 x10(12)/L 01/21/2025 5:39 PM PHYSICAL SECURITY ENGINEER OWAT MCV 87.4 78.2 - 97.9 fL 01/21/2025 5:39 PM PHYSICAL SECURITY ENGINEER OWAT RBC Distrib Width 14.0 12.2 - 16.1 % 01/21/2025 5:39 PM PHYSICAL SECURITY ENGINEER OWAT Platelet Count 262 157 - 371 x10(9)/L 01/21/2025 5:39 PM PHYSICAL SECURITY ENGINEER OWAT Leukocytes 5.9 3.4 - 9.6 x10(9)/L 01/21/2025 5:39 PM PHYSICAL SECURITY ENGINEER OWAT Neutrophils 3.56 1.56 - 6.45 x10(9)/L 01/21/2025 5:39 PM PHYSICAL SECURITY ENGINEER OWAT Lymphocytes 1.72 0.95 - 3.07 x10(9)/L 01/21/2025 5:39 PM PHYSICAL SECURITY ENGINEER OWAT Monocytes 0.51 0.26 - 0.81 x10(9)/L 01/21/2025 5:39 PM PHYSICAL SECURITY ENGINEER OWAT Eosinophils 0.11 0.03 - 0.48 x10(9)/L 01/21/2025 5:39 PM PHYSICAL SECURITY ENGINEER OWAT Basophils <0.03 0.01 - 0.08 x10(9)/L 01/21/2025 5:39 PM PHYSICAL SECURITY ENGINEER OWAT Blood (Blood, Venous) 01/21/2025 2:41 PM PHYSICAL SECURITY ENGINEER 01/21/2025 5:36 PM PHYSICAL SECURITY ENGINEER Magnolia Reyna APRN, C.N.P., D.N.P. LAB BLOOD ADD -ON Final Result Performing Organization Address City/[facility]/ZIP Co de Phone Number [facility] [address] [place] [phone], [facility] [place] [address] [place] [phone] * (ABNORMAL) CRP (C-Reactive Protein) (01/21/2025 2:41 PM PHYSICAL SECURITY ENGINEER) C-Reactive Protein (CRP), P 26.0(H) <5.0 mg/L 01/21/2025 6:12 PM PHYSICAL SECURITY ENGINEER OWAT Blood (Blood, Venous) 01/21/2025 2:41 PM PHYSICAL SECURITY ENGINEER 01/21/2025 5:37 PM PHYSICAL SECURITY ENGINEER Magnolia Reyna APRN, C.N.P., D.N.P. LAB BLOOD ADD -ON Final Result Performing Organization Address City/[facility]/ZIP Co de Phone Number [facility] [address] [place] [phone], [place] [facility] [place] [address] [place] [address] * ALT (Alanine Aminotransferase) (01/21/2025 2:41 PM PHYSICAL SECURITY ENGINEER) Alanine Aminotransferase (ALT), P 10 7 - 45 U/L 01/21/2025 6:12 PM PHYSICAL SECURITY ENGINEER OWAT Blood (Blood, Venous) 01/21/2025 2:41 PM PHYSICAL SECURITY ENGINEER 01/21/2025 5:37 PM PHYSICAL SECURITY ENGINEER Magnolia Reyna APRN, C.N.P., D.N.P. LAB BLOOD ADD -ON Final Result Performing Organization Address City/[facility]/ZIP Co de Phone Number [facility] [address] [place] [address], [facility] [place] [address] [place] [address] * AST (Aspartate Aminotransferase) (01/21/2025 2:41 PM PHYSICAL SECURITY ENGINEER) Aspartate Aminotransferase (AST), P 15 8 - 43 U/L 01/21/2025 6:12 PM PHYSICAL SECURITY ENGINEER OWAT Blood (Blood, Venous) 01/21/2025 2:41 PM PHYSICAL SECURITY ENGINEER 01/21/2025 5:37 PM PHYSICAL SECURITY ENGINEER Magnolia Reyna APRN, C.N.P., D.N.P. LAB BLOOD ADD -ON Final Result [facility] [address] [place] [address], [place] [facility] [place] [address] [place] [address] * Creatinine with Estimated GFR (01/21/2025 2:41 PM PHYSICAL SECURITY ENGINEER) Creatinine 0.75 0.59 - 1.04 mg/dL 01/21/2025 6:12 PM PHYSICAL SECURITY ENGINEER OWAT Estimated GFR (eGFR) 87 >=60 mL/min/BSA 01/21/2025 6:12 PM PHYSICAL SECURITY ENGINEER OWAT Comment: Estimated GFR calculated using the 2020 CKD_EPI creatinine equation. Blood (Blood, Venous) 01/21/2025 2:41 PM PHYSICAL SECURITY ENGINEER 01/21/2025 5:37 PM PHYSICAL SECURITY ENGINEER us Magnolia Reyna APRN, C.N.P., D.N.P. LAB BLOOD ADD -ON Final Result Performing Organization Address [facility] Co de Phone Number [facility] [address] [place] [address], [facility] [place] [address] * Thyroid Function Cheraw (09/25/2024 2:50 PM CDT) TSH, Sensitive 2.0 0.3 - 4.2 mIU/L 09/25/2024 6:22 PM CDT OW Blood (Blood, Venous) 09/25/2024 2:50 PM CDT 09/25/2024 5:58 PM CDT us Carrol Edwards APRN, C.N.P., D.N.P. LA B BLOOD ADD-ON Final Result Performing Organization Address [facility] Co de Phone Number [facility] [address] [place] [address], [facility] [place] [address] [place] [address] * BI Breast Screening Bilateral with Tomosynthesis (03/28/2022 1:42 PM PHYSICAL SECURITY ENGINEER) Anatomical Region Laterality Modality Breast, Breast Imaging RST L OS, Breast Imaging ARZ LOS, Breast Imaging FLA LOS Bilateral Mammography 03/28/2022 1:43 PM PHYSICAL SECURITY ENGINEER Impressions 03/28/2022 1:44 PM PHYSICAL SECURITY ENGINEER Negative. RECOMMENDATION: Annual Screening Mammogram ASSESSMENT: BI-RADS: 1: Negative. Narrative 03/28/2022 1:44 PM PHYSICAL SECURITY ENGINEER EXAM: BI BREAST SCREENING BILATERAL WITH TOMOSYNTHESIS Current study was evaluated with a Computer Aided Detection (CAD) system. INDICATION: Screening mammogram. COMPARISON: Prior exam(s) were available and reviewed for comparison. DENSITY: a. The breast(s) are almost entirely fatty. FINDINGS: No mammographic findings of malignancy. Procedure Note Papi Mtz M.D. - 03/28/2022 EXAM: BI BREAST SCREENING BILATERAL WITH TOMOSYNTHESIS Current study was evaluated with a Computer Aided Detection (CAD) system. INDICATION: Screening mammogram. COMPARISON: Prior exam(s) were available and reviewed for comparison. DENSITY: a. The breast(s) are almost entirely fatty. FINDINGS: No mammographic findings of malignancy. IMPRESSION: Negative. RECOMMENDATION: Annual Screening Mammogram ASSESSMENT: BI-RADS: 1: Negative. us Cynthia Rockwell APRN, C.N.P., R.N. IMG BI PROCEDU RES Final Result * Hepatitis B Surface Antigen (03/22/2021 4:39 PM PHYSICAL SECURITY ENGINEER) HBs Antigen, S Negative Negative 03/22/2021 9:40 PM PHYSICAL SECURITY ENGINEER [facility] Blood (Blood, Venous) 03/22/2021 4:39 PM PHYSICAL SECURITY ENGINEER 03/22/2021 8:15 PM PHYSICAL SECURITY ENGINEER Perry Arana APRN, C.N.P. LAB MICROBIOLOGY - B LOOD ORDERABLES Final Result [facility] [address] [place] [address] [facility] [place] Dept. of Laboratory Medicine and Pathology [address] [place] [address] * HPV with Genotyping, PCR, ThinPrep (01/12/2021 9:18 AM PHYSICAL SECURITY ENGINEER) HPV with Genotyping, ThinPrep, PCR Negative Negative 01/13/2021 6:20 PM PHYSICAL SECURITY ENGINEER [facility] Comment: Negative for high risk HPV by nucleic acid amplification. The following high risk HPV types were not detected: 16, 18, 31, 33, 35, 39, 45, 51, 52, 56, 58, 59, 66, and 68 Varies 01/12/2021 9:18 AM PHYSICAL SECURITY ENGINEER 01/13/2021 8:10 AM PHYSICAL SECURITY ENGINEER Cynthia Rockwell APRN C.N.P., R.N. LAB MICROBIOLO GY - GENERAL ORDERABLES Final Result [facility] [address] [place] [address], [facility] [place] [address] [place] [address] from Last 3 Months or Most Recently Relevant to Health Maintenance Additional Health Concerns Infection Onset Date Last Indicated Protective Environment 06/26/2022 3 Insurance [employer] Care Teams Clinical Provider Trainer Relationship Specialty Start Date End Date Geno Pradhan P.A.-C. [address] [place] [phone] PCP - General 03/08/22
--- OUTSIDE RECORDS SUMMARY | 2025-01-26 08:43 | XMS_ITS | Encounter Summary ---
Author Organization [facility] Address [address] [place] [address] Care Team Providers Care Crew Supervisor Name Role Phone Geno Pradhan P.A.-C. Primary Care Provider Reason for Visit * Reason Onset Date Comments Med Refill 12/24/2024 Encounter Details Date Type Department Care Team (Late st Contact Info) Description 12/24/2024 Refill Department of [facility] in [place], [place] [address] [place] [phone] Geno Pradhan P.A.-C. [address] [place] [phone] Med Refill Social History Tobacco Use Types [...] place to sleep or slept in a [facility] (including now)? No 03/26/2022 Depression Answer Date Recor ded PHQ-9 Total Score (max 27) 0 01/12 Education Answer Date Recorded What is the highest level of school you have completed or the highest degree you have received? 1st grade 09/18/2018 Comments No Sex and Gender Information Value Date Recorded Sex Assigned at Not on file Legal Sex Female 9:25 AM INSTITUTION DIRECTOR Gender Identity Female 02/20/2018 2:45 PM INSTITUTION DIRECTOR Sexual Orientation Not on file documented as of this encounter Miscellaneous Notes * Telephone Encounter - Ethel Humphrey - 12/24/2024 8:25 AM CDT Images from the original note were not included. Needs Review: Med Refill Team is unable to forward request to provider. Discrepancy: Verification Required. Medication Discontinued. Primary Provider: SHIRLEY Sharpe, P.A.-C. documented in this encounter Plan of Treatment Not on file documented as of this encounter Visit Diagnoses Not on filedocumented in this encounter Additional Health Concerns Infection Onset Date Last Indicated Resolved Time Protective Environment 06/26/2022 06/26/2022 Assessment Noted Time PHQ-9 Depression Total Score: 0 01/13/20 21 9:06 AM INSTITUTION DIRECTOR documented as of this encounter Care Teams Crew Supervisor Relationship Specialty Start Date End Date Geno Pradhan P.A.-C. [address] [place] [address] [place] [phone] PCP - General 03/08/22 documented as of this encounter
--- OUTSIDE RECORDS SUMMARY | 2025-01-26 08:44 | XMS_ITS | Encounter Summary ---
Author Organization [facility] Address [address] [place] [address] Care Team Providers Care Embedded Software Test Engineer Name Role Phone Geno Pradhan P.A.-C. Primary Care Provider Reason for Visit * Reason Comments Med Refill Encounter Details Date Type Department Care Team (Late st Contact Info) Description 11/14/2024 Refill Department of Family Medicine, [facility], in [place], [place] [address] [place] [phone] Cody Lucas M.B.B.S. [address] [place] [phone] Med Refill Social History Tobacco Use Types [...] place to sleep or slept in a nursing home (including now)? No 03/26/2022 Depression Answer Date Recor ded PHQ-9 Total Score (max 27) 0 01/12 Education Answer Date Recorded What is the highest level of school you have completed or the highest degree you have received? 1st grade 09/18/2018 Comments No Sex and Gender Information Value Date Recorded Sex Assigned at Not on file Legal Sex Female 9:25 AM ICT DEVELOPMENT MANAGER Gender Identity Female 02/20/2018 2:45 PM ICT DEVELOPMENT MANAGER Sexual Orientation Not on file documented as of this encounter Miscellaneous Notes * Telephone Encounter - Chelsie Riley, L.P.N. - 11/19/2024 9:06 AM CDT Left message for patient to return call to clinic. Does the patient need to speak to nursing? yes Action needed: This medication has previously been refilled by Rheumatology department. I recommend she visit withRheumatology team regarding this refill. It looks like she has an appointment scheduled next week. Please make sure she attends this appointment * Telephone Encounter - Bernadine Quevedo - 11/18/2024 8:24 AM CDT Needs Review: Med Refill Team is unable to forward request to provider. Discrepancy: Verification Required. Medication Discontinued. Primary Provider: SHIRLEY Sharpe PAshish Requested Prescriptions Pending Prescriptions Disp Refills predniSONE (Deltasone) 5 mg tablet [Pharmacy Med Name: predniSONE 5 MG Oral Tablet] 90 tablet 0 Sig: TAKE 1 TABLET BY MOUTH ONCE DAILY FOR MAINTENANCE DOSING documented in this encounter Plan of Treatment Not on file documented as of this encounter Visit Diagnoses Diagnosis Arthritis Rheumatoid (HCC) documented in this encounter Additional Health Concerns Infection Onset Date Last Indicated Resolved Time Protective Environment 06/26/2022 06/26/2022 Assessment Noted Time PHQ-9 Depression Total Score: 0 01/13/20 21 9:06 AM ICT DEVELOPMENT MANAGER documented as of this encounter Care Teams Embedded Software Test Engineer Relationship Specialty Start Date End Date Geno Pradhan, PKen. [address] [facility] [phone] PCP - General 03/08/22 documented as of this encounter
[2025-01-26 08:47] VITALS: BP 126/85; PULSE 78; RESP 20; TEMP 36; O2SAT 98
--- NOTE | 2025-01-26 09:23 | ED_ITS ---
HPI - General Adult General Date Seen: 01/26/25 Chief complaint: Unspecified Complaint, Adult Stated complaint: Body pain/arthritis Time Seen by Provider: 01/26/25 08:52 Source: patient and family Mode of arrival: ambulatory Limitations: no limitations History of Present Illness HPI narrative: Patient is a 69-year-old female with history of rheumatoid arthritis presenting to the emergency department for body aches and bilateral wrist pain. She is here with her son who is translating. She has been dealing with worsening body aches and wrist pain she states. Has had the symptoms in the past facet physically the bilateral wrist pain. Has been taking her home arthritis medications without improvement in her symptoms she states. Did see her lcac radar operator/navigator last week at [facility] and was started on a new medication. They are unsure what it is but they states she has been taking it. Have not spoken to her lcac radar operator/navigator today. She has not had any chest pain or shortness of breath. States she felt warm earlier this morning but did not check herself for a fever. No longer is having no symptoms. Denies abdominal pain, headache, lightheadedness, dizziness, weakness, numbness. At this time her main complaint is the bilateral wrist pain. Is able to move her wrist and her fingers. Related Data Home Medications ?Medication ?Instructions ?Recorded ?Confirmed acetaminophen 500 mg tablet (Pain 1,000 mg PO TID PRN 01/21/22 01/26/25 Relief (acetaminophen)) cholecalciferol (vitamin D3) 50 2,000 unit PO DAILY 01/26/25 mcg (2,000 unit) tablet diclofenac sodium 1 % topical gel 4 g topical QID 01/0301/26/25 folic acid 1 mg tablet 1 mg PO DAILY 01/21/2201/26 leflunomide 20 mg tablet 20 mg PO DAILY 01/21/2208/02 levothyroxine 100 mcg tablet 100 mcg PO DAILY 01/21/22 01/26/25 meclizine 25 mg tablet 25 mg PO QID PRN 01/21/22 methotrexate sodium 2.5 mg tablet 20 mg PO QWEEK 01/2101/26/25 omeprazole 20 mg capsule,delayed 20 mg PO DAILY 01/26/25 release prednisone 5 mg tablet 5 mg PO DAILY 01/21/2201/26 albuterol sulfate 90 mcg/actuation 2 puff inhalation Q 4H PRN 08/20/22 08/20/22 aerosol inhaler (Ventolin HFA) pregabalin 75 mg capsule 75 mg PO QPM 08/20/22 cyclosporine 0.05 % eye drops in a 1 drp ophthalmic (e ye) Q12H 01/26/25 01/26/25 dropperette (Restasis) timolol maleate 0.5 % eye drops 1 drp ophthalmic (eye) BID 01/26/25 01/26/25 Previous Rx's ?Medication ?Instructions ?Recorded prednisone 20 mg tablet 40 mg (2 x 20 mg) PO DAILY 4 days 08/20/22 #8 tabs Allergies Allergy/AdvReac Type Severity Reaction Status Date / Time No Known Drug Allergies Allergy Verified 01/26/25 08:43 Review of Systems Status of ROS: Reports: 10 or more systems reviewed and unremarkable except as noted in History and below PFSH [facility] Medical History Vitamin D deficiency ?E55.9 - Vitamin D deficiency, unspecified (ICD-10) Hypothyroidism ?E03.9 - Hypothyroidism, unspecified (ICD-10) 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) ?Z79.899 - Other terminal gauger supervisor (current) drug therapy (ICD-10) Rheumatoid arthritis ?M06.9 - Rheumatoid arthritis, unspecified (ICD-10) Surgical History No significant past surgical history Social History Smoking Status: Never smoker Do you use any of these nicotine containing products: None Second hand tobacco smoke exposure: No How often do you have a drink containing alcohol: never How often do you have six or more drinks on one occasion: Never AUDIT-C Alcohol total score: 0 Non-prescribed substance use: denies use service: No Exam Narrative: Exam Narrative: Const: Well-nourished, Well-developed, in mild distress Eyes: PERRL, no conjunctival injection, and symmetrical lids HENT: Atraumatic external nose and ears. Moist mucous membranes. MSK:Extremities w/o deformity, Normal Active ROM Skin: Warm, Dry. No rashes or lesions. Neuro: Normal Muscle tone, No focal neurological deficits. Psych: Awake, Alert, & Oriented x3. Appropriate mood and affect. Const: Vital Signs, click to edit/add: Vital Signs - 24 hr 01/26/25 08:47 Temperature 96.8 F L Pulse Rate [Pulse Oximeter] 78 Respiratory Rate 20 Blood Pressure [Ri ght Upper Arm] 126/85 Pulse Oximetry 98 Oxygen Delivery Me thod Room Air Course Vital Signs Vital signs: Initial Vital Signs Temperature 96.8 F L 01/26/25 08:47 Temperature Source Temporal Artery Scan 01/26/25 08:47 Pulse Rate 78 01/26/25 08:47 Respiratory Rate 20 01/26/25 08:47 Blood Pressure 126/85 01/26/25 08:47 Blood Pressure Mean 98 01/26/25 08:47 Blood Pressure Position Sitting 01/26/25 08:47 Pulse Oximetry 98 01/26/25 08:47 Oxygen Delivery Method Room Air 01/26/25 08:47 Vital Signs Temperature 96.8 F L 01/26/25 08:47 Pulse Rate 78 01/26/25 08:47 Respiratory Rate 20 01/26/25 08:47 Blood Pressure 126/85 01/26/25 08:47 Pulse Oximetry 98 01/26/25 08:47 Oxygen Delivery Method Room Air 01/26/25 08:47 Temperature 96.8 F L 01/26/25 08:47 Pulse Rate 78 01/26/25 08:47 Respiratory Rate 20 01/26/25 08:47 Blood Pressure 126/85 01/26/25 08:47 Pulse Oximetry 98 01/26/25 08:47 Oxygen Delivery Method Room Air 01/26/25 08:47 Medical Decision Making MDM Narrative Medical decision making narrative: Patient is a 69-year-old female presenting for bilateral wrist pain. This pain is most certainly from her rheumatoid arthritis. She has a history of this wrist pain and previously was given injections for it. Unsure what those injections were. Her sinus going to look them up. Considering her history of rheumatoid arthritis her symptoms currently I do not believe further workup is necessary. I see no signs of gout or septic arthritis. Remove finger out it was Solu-Medrol that she has gotten in the past as an inj ection. Was done here in [place] ED. They want this junction again. This will be ordered and I will prescribe her prednisone via [facility]. I informed her she needs to follow up with her lcac radar operator/navigator. Discharge Plan Discharge Clinical Impression: Rheumatoid arthritis flare Patient Disposition: Home, Self-Care Condition: Stable Additional Instructions: Start taking the prednisone tomorrow and take for for total days. You take 2 pills a day. You pick it up from [facility]. Call your lcac radar operator/navigator about your pain. Return to emergency department for new or worsening symptoms. Prescriptions: No Action albuterol sulfate [Ventolin HFA] 90 mcg/actuation HFA aerosol inhaler 2 puff INHALATION Q4H PRN pregabalin 75 mg capsule 75 mg PO QPM prednisone 20 mg tablet 40 mg PO DAILY 4 Days Qty: 8 0RF Rx Instructions: Begin 6/20 AM folic acid 1 mg tablet 1 mg PO DAILY Patient Comments: TAKE 1 TABLET BY MOUTH ONCE DAILY acetaminophen [Pain Relief (acetaminophen)] 500 mg tablet 1,000 mg PO TID PRN Patient Comments: TAKE 2 TABLETS BY MOUTH EVERY 8 HOURS NEEDED FOR MODERATE PAIN OR SCORE OF 4-6 OF 10 cholecalciferol (vitamin D3) 50 mcg (2,000 unit) tablet 2,000 unit PO DAILY Patient Comments: TAKE 1 TABLET BY MOUTH ONCE DAILY diclofenac sodium 1 % gel 4 g TOPICAL QID Patient Comments: APPLY 4 GRAMS TOPICALLY 4 TIMES DAILY TO LOWER EXTREMITIES AND 2 GRAMS TOPICALLY 4 TIMES DAILY TO UPPER EXTREMITIES leflunomide 20 mg tablet 20 mg PO DAILY levothyroxine 100 mcg tablet 100 mcg PO DAILY Patient Comments: TAKE 1 TABLET BY MOUTH ONCE DAILY meclizine 25 mg tablet 25 mg PO QID PRN Patient Comments: TAKE 1 TABLET BY MOUTH NEEDED FOR DIZZINESS methotrexate sodium 2.5 mg tablet 20 mg PO QWEEK omeprazole 20 mg capsule,delayed release(DR/EC) 20 mg PO DAILY prednisone 5 mg tablet 5 mg PO DAILY Patient Comments: TAKE 1 TABLET BY MOUTH ONCE DAILY timolol maleate 0.5 % drops 1 drp ophthalmic (eye) BID cyclosporine [Restasis] 0.05 % dropperette 1 drp ophthalmic (eye) Q12H Follow Up/Referrals: Corry Barnett MD [Primary Care Provider, Family Practice] Stand Alone Forms: [employer] Info Instructions
== END 2025-01-26 10:28 | disposition home or self-care (01) ==
PROVIDERS: Emergency Provider Student in an Organized Health Care Education/Training Program; PCP Family Medicine
DX: M06.9 Rheumatoid arthritis, unspecified (principal)
CPT/HCPCS: 96372; 99283; 99284; J2919